=== PATIENT | female | born 1960 | race Caucasian/White ===

== ENCOUNTER → 2017-09-09 10:41 | Outpatient (CLI) | payer BC, SELFPAY ==
--- NOTE | 2017-09-09 10:45 | BI_ITS ---
MAMMOGRAPHY - BILATERAL SCREENING 3-D QUYNH SYNTHESIS REASON FOR EXAM: Female, 57 years old. Bilateral Screening 3-D tomosynthesis PERTINENT HISTORY: Left breast excisional biopsy 1991. No significant family history given. TECHNIQUE: 2-D mammograms and 3-D Quynh synthesis of the breast (s) were performed. CAD was performed. COMPARISON: 06/11/2014, 04/24/2012. FINDINGS: The breast composition is composed of scattered fibroglandular density. No new architectural distortion, asymmetric density, abnormal microcalcification cluster, dominant mass, adenopathy, skin thickening or nipple retraction identified. Postsurgical changes left breast again seen with the mild architectural distortion which appears stable. Coarse benign-appearing calcifications. BI/SCREENING MAMM (CAD), BILAT IMPRESSION: No mammographic sign of malignancy. Routine yearly recommended. ASSESSMENT CATEGORY: BIRADS Category 2: Benign. A letter regarding these results will be sent to the patient by the facility within 30 days. Negative results should not deter biopsy as a palpable lesion if present should be followed on clinical grounds and biopsy performed if clinically persistent for 3 months or increasing size. Approximately 10% of breast cancers are not detected by mammography. A normal mammogram should not delay biopsy of a clinically suspicious abnormality. Electronically Signed: David Burden, at 20:11 EDT Tel , Service support ,
== END ==
PROVIDERS: Family Provider Nurse Practitioner Family; PCP Nurse Practitioner Family; Visit Provider Nurse Practitioner Family
DX: Z12.31 Encounter for screening mammogram for malignant neoplasm of breast (principal)
CPT/HCPCS: 77063; 77067

== ENCOUNTER → 2019-01-31 10:21 | Outpatient (CLI) | payer OTHER, SELFPAY ==
[2019-01-31 11:08] LABS: Ferritin 6 ng/mL (8-252); Iron 64 ug/dL (50-170); Iron Binding Capacity,Total 385 ug/dL (250-450)
[2019-01-31 11:11] LABS: Hemoglobin A1c 5.9 % (4.2-6.3)
== END ==
LOC: LAB.FUTURE 10:25 → LAB 10:53
PROVIDERS: Family Provider Nurse Practitioner Family; PCP Nurse Practitioner Family; Referring Provider Nurse Practitioner Family; Visit Provider Nurse Practitioner Family
DX: R73.01 Impaired fasting glucose (principal); D64.9 Anemia, unspecified
CPT/HCPCS: 36415; 82728; 83036; 83540; 83550

== ENCOUNTER → 2019-09-14 15:28 | Outpatient (CLI) | payer OTHER, SELFPAY ==
--- NOTE | 2019-09-14 15:33 | BI_ITS ---
MAMMOGRAPHY - BILATERAL SCREENING REASON FOR EXAM: Female, 59 years old. Routine annual screening examination. PERTINENT HISTORY: Non-contributory. Remote left excisional breast biopsy. TECHNIQUE: Digital bilateral breast quynh (3D mammographic acquisition) in the CC and MLO projections. 2-D mediolateral oblique (MLO) and craniocaudad (CC) views of both breasts were obtained. CAD: Full Field Digital Mammography with Computer Added Detection was performed. COMPARISON: Comparison is made with prior examination dated 09/09/2017. FINDINGS: Breast Composition: There are scattered areas of fibroglandular density. There are no dominant masses or suspicious calcifications. Benign-appearing axillary lymph nodes. No other significant abnormalities are identified. There has been no significant change since the prior study. BI/SCREEN MAMM (CAD) W/QUYNH BILAT IMPRESSION: Stable bilateral screening mammogram. Yearly follow-up mammogram recommended. (A) ASSESSMENT CATEGORY: BIRADS Category 2: Benign. A letter regarding these results will be sent to the patient by the facility within 30 days. Approximately 10% of breast cancers are not detected by mammography. A normal mammogram should not delay biopsy of a clinically suspicious abnormality. [id number] Electronically Signed: Bruce Ansrai, at 8:03 EDT , Service support ,
== END ==
PROVIDERS: PCP Nurse Practitioner Family; Referring Provider Nurse Practitioner Family; Visit Provider Nurse Practitioner Family
DX: Z12.31 Encounter for screening mammogram for malignant neoplasm of breast (principal)
CPT/HCPCS: 77063; 77067

== ENCOUNTER 2019-10-18 17:25 | Emergency (ER) | payer OTHER, SELFPAY ==
[2019-10-18 17:26] VITALS: BP 147/81; PULSE 91; RESP 20; TEMP 37.1; O2SAT 100; BMI 32.2
--- NOTE | 2019-10-18 17:37 | CT_ITS ---
STUDY: CT BRAIN WITHOUT CONTRAST REASON FOR EXAM: Female, 59 years old. CASPER/VOMITING. Being treated for sinus infection RADIATION DOSAGE (If Supplied By Facility): CTDIvol = ( 44.99 ) mGy, DLP = ( 762.36 ) mGycm TECHNIQUE: Transaxial CT imaging of the brain was performed without administration of intravenous contrast material. Individualized dose optimization techniques were used for this CT. COMPARISON: 12/26/2016 FINDINGS: Normal soft tissue structures. Normal calvarium. Normal size ventricles and extra-axial spaces for the patient''s age. There are areas of decreased attenuation within the white matter tracts of the supratentorial brain, consistent with microvascular disease changes. Normal age-related changes of the basal ganglia. Normal brainstem. Normal cerebellum. There is no intracranial hemorrhage. There are no findings of an acute ischemic infarction. Normal visualized paranasal sinuses. CT/Brain/Head without Contrast IMPRESSION: No CT evidence of acute infarct or hemorrhage. If there is clinical concern for hyperacute ischemia that is not evident by CT, MRI should be considered if possible. Electronically Signed: Brandon Warren MD at 19:06 EDT Tel , Service support ,
--- NOTE | 2019-10-18 17:39 | ED.DCSUM_ITS ---
History of Present Illness Chief Complaint: Headache Informant: Patient, Family Onset: Today Current Severity: Moderate Maximum Severity: Severe Narrative: Patient presents secondary to severe headache. She states she was choking on a pill earlier. She was able to vomited it up but now has severe headache. She states it feels like there is sharp pain shooting from behind her eyes back to the top of her neck. She does have light sensitivity. She did take Tylenol prior to arrival. - Past Medical History (1) Anxiety Status: Chronic (2) CVA (cerebral vascular accident) Status: Chronic (3) Depression Status: Chronic (4) Fibromyalgia Status: Chronic (5) Hyperlipidemia Status: Chronic (6) Hypertension Status: Chronic Past Medical History - Allergies and Home Meds Allergies/Adverse Reactions: Allergies No Known Allergies Allergy (Verified 10/18/19 17:29) Primary Care Physician: Savi Joyner CRYPTOLOGIC TECHNICIAN TECHNICAL, CRYPTOLOGIC TECHNICIAN TECHNICAL-C [Primary Care Provider] - Prior records reviewed: Yes Surgical History: - - injection in back last week Lives: Spouse/ Significant Other Smoking Status: Never smoker - Family History Maternal Family History: Family History (Last Reviewed 09/12/17 @ 11:[address] Fish Ag MD) Unknown Past medical history not known due to adoption Family History: Reports: - Additional Family History: patient is adopted and does not know her biological family's history. Review of Systems General: Denies: Chills, Fever Eyes: Denies: Visual changes - bilaterally ENT: Denies: Bilateral ear pain Cardiovascular: Denies: Chest pain Respiratory: Denies: Dyspnea Gastrointestinal: Reports: Nausea, Vomiting. Denies: Abdominal pain Genitourinary: Denies: Dysuria Musculoskeletal: Reports: Neck pain Skin: Denies: Rash Neurological: Reports: Headache Hematologic: Denies: Easy bruising, Easy bleeding Allergy: Denies: Uticaria Physical Exam Vital Signs/Narrative: Vital Signs Temp Pulse Resp BP Pulse Ox 10/18/19 17:26 98.8 F 91 20 H 147/81 H 100 Inital Vital Signs reviewed: Yes General: Well nourished, Well developed Head: Normocephalic ENT: Moist mucous membranes Neck: Supple, - - Reproducible pain at the base of the skull. Cardiovascular: Regular rate, Regular rhythm Respiratory: No distress, CTA bilaterally Abdomen: Soft, Nontender Extremities: Nontender Skin: Normal color Neurological: Alert, Oriented x3 Psychological: Tearful, - - Anxious Diagnostic/Tx/Re-eval Impressions Brain CT 10/18/19 17:37 IMPRESSION: No CT evidence of acute infarct or hemorrhage. If there is clinical concern for hyperacute ischemia that is not evident by CT, MRI should be considered if possible. Electronically Signed: Brandon Warren MD at 19:06 EDT Tel , Service support , 10/18/19 17:37 Brain/Head without Contrast [CT] Stat - Medical Decision Making CT scan was unremarkable. Patient was given Toradol, Reglan, Benadryl, and IV fluids. On repeat evaluation she does feel significantly improved. She be discharged home with her at this time. Return instructions were given. ED Disposition - Plan for ED Patient: Disposition: Home or Assisted Living Diagnosis: Headache Instructions: ED Headache Unspecified Referrals: Savi Joyner CRYPTOLOGIC TECHNICIAN TECHNICAL, CRYPTOLOGIC TECHNICIAN TECHNICAL-C [Primary Care Provider] - 3-5 Days if not improving
[2019-10-18] MEDS: Metoclopramide 10 MG/2 ML Vial 5 MG IV (17:55)
[2019-10-18] MEDS: DiphenhydrAMINE 50 MG/ML Syringe 25 MG IV (17:55)
[2019-10-18] MEDS: Ketorolac 30 MG/ML Syringe IV (18:31)
[2019-10-18 19:47] VITALS: BP 145/80; PULSE 78; RESP 18; O2SAT 99
== END 2019-10-18 19:48 | disposition home or self-care (01) ==
PROVIDERS: Emergency Provider Emergency Medicine; PCP Nurse Practitioner Family
DX: R51 Headache (principal); R11.2 Nausea with vomiting, unspecified; M54.2 Cervicalgia; F41.9 Anxiety disorder, unspecified; F32.9 Major depressive disorder, single episode, unspecified; E78.5 Hyperlipidemia, unspecified; I10 Essential (primary) hypertension; M79.7 Fibromyalgia; Z86.73 Personal history of transient ischemic attack (TIA), and cerebral infarction without residual deficits; Z79.82 Long term (current) use of aspirin; Z79.899 Other long term (current) drug therapy
CPT/HCPCS: 70450; 96374; 96375; 99283; J7050; A4216

== ENCOUNTER → 2019-12-01 15:00 | Outpatient (CLI) | payer OTHER, SELFPAY ==
[2019-12-01 18:09] LABS: CRP < 2.90 mg/L (0.0-3.0)
[2019-12-03 16:08] LABS: Endomysial Antibody IgA Negative (Negative)
[2019-12-03 16:24] LABS: Immunoglobulin A 25 mg/dL (87-352); t-Transglutaminase IgA <2 U/mL (0-3)
== END ==
PROVIDERS: PCP Nurse Practitioner Family; Referring Provider Internal Medicine Gastroenterology; Visit Provider Internal Medicine Gastroenterology
DX: R10.9 Unspecified abdominal pain (principal)
CPT/HCPCS: 36415; 82784; 83516; 86140; 86255

== ENCOUNTER → 2019-12-11 17:19 | Outpatient (CLI) | payer OTHER, SELFPAY ==
[2019-12-14 16:08] LABS: Endomysial Antibody IgA Negative (Negative)
[2019-12-14 17:42] LABS: Immunoglobulin A 24 mg/dL (87-352); t-Transglutaminase IgA <2 U/mL (0-3)
== END ==
PROVIDERS: PCP Nurse Practitioner Family; Referring Provider Internal Medicine Gastroenterology; Visit Provider Internal Medicine Gastroenterology
DX: K90.0 Celiac disease (principal)
CPT/HCPCS: 36415; 82784; 83516; 86255

== ENCOUNTER 2019-12-28 19:15 | Emergency (ER) | payer OTHER, SELFPAY ==
[2019-12-28 19:16] VITALS: BP 141/83; PULSE 73; RESP 16; TEMP 36.3; O2SAT 99; BMI 29.9
--- NOTE | 2019-12-28 19:52 | ED.VISSUMM ---
- ER Visit Summary Date of Service: 12/28/19 Chief Complaint: Back pain History of Present Illness: The patient is a 59 F who sees Zara Joyner. She reports that she has a history of sciatica. She reports that she was doing well until earlier today when she had the abrupt onset of right-sided low back pain. She states that the sharp pain is 10 of 10 severity. There is no radiation to her legs. No numbness or weakness. States pain is 10 out of 10 in severity currently and at worst. Is worsened by movement and turning. She is taken naproxen and Tylenol without relief. She denies any problems with her bowels or her bladder. No groin numbness. Patient denies red flags. Physical Examination: Vitals: Stable. Afebrile. General: A&O x 3. NAD. Cardiovascular exam: Regular rate and rhythm, no murmur, rub or gallop. Respiratory exam: Clear to auscultation bilaterally. No wheezes or stridor. Abdominal exam: Soft, nontender, nondistended, normal bowel sounds. No peritoneal signs. Back: Diffuse moderate tenderness to palpation over the lumbar spine and the paraspinous musculature in the lumbar region. No point tenderness. Negative straight leg bilaterally. 5/5 DF, PF, EHL bilaterally. Normal sensation to light touch throughout. Extremity: No clubbing, cyanosis, or edema. Emergency Department Course and Treatment: An OAR[facility] report was obtained which was negative. The patient was given a dose of Kimberly p.o. Treatment Plan: Patient be discharged with 10 Kimberly. Instructed to follow-up with primary care physician in 3 to 5 days if not improving. The signs and symptoms of cauda equina syndrome were discussed and she is instructed to return for these. Disposition: To home in improved and stable condition. Impression: 1. Low back pain. This note was generated with [employer] dictation software. It may contain incorrect words, spelling, and punctuation that were not noted in review of the chart prior to signing ED Disposition - Plan for ED Patient: Disposition: Home or Assisted Living Instructions: ED Back Pain Acute or Chronic Prescriptions: Hydrocodone Bitart/Apap 5-325 [Kimberly 5MG-325MG] 1 tab PO Q4H PRN PRN 2 Days #10 tab PRN Reason: Pain Prescription Printed Referrals: Savi Joyner GREEN CHAIN OPERATOR, GREEN CHAIN OPERATOR-C [Primary Care Provider] - 3-5 Days if not improving
[2019-12-28] MEDS: HYDROcodone Bitartrate/Apap 5/325 Tablet PO (20:11)
== END 2019-12-28 20:49 | disposition home or self-care (01) ==
LOC: ED 19:45
PROVIDERS: Emergency Provider Emergency Medicine; PCP Nurse Practitioner Family
DX: M54.41 Lumbago with sciatica, right side (principal); R51.9 Headache, unspecified; I10 Essential (primary) hypertension; E78.00 Pure hypercholesterolemia, unspecified; Z86.73 Personal history of transient ischemic attack (TIA), and cerebral infarction without residual deficits; Z79.82 Long term (current) use of aspirin; Z79.899 Other long term (current) drug therapy
CPT/HCPCS: 99282

== ENCOUNTER 2020-01-20 17:08 | Emergency (ER) | payer OTHER, SELFPAY ==
[2020-01-06 17:43] VITALS: BMI 29.3
[2020-01-20 17:09] VITALS: BP 137/89; PULSE 89; RESP 18; TEMP 36.6; O2SAT 97; BMI 30.6
[2020-01-20 17:56] VITALS: BP 137/89; PULSE 89; RESP 18; TEMP 36.6; O2SAT 97
--- NOTE | 2020-01-20 18:57 | ED.DCSUM_ITS ---
- ER Visit Summary Date of Service: 01/20/20 Chief Complaint: Anxiety, confusion, depression History of Present Illness: The patient is a 59 F who presents with anxiety, confusion, and depression that has been getting worse over the past few months. Patient states she has been forgetting the names of things such as a tray for a highchair. Patient states she called that a counter because she could not think of the word tray. Patient states she has been having some difficulty hearing and difficulty talking. Patient states her forgetfulness and confusion is worse with anxiety. Patient also admits to some mood swings and some flight of ideas. Patient also complains of right shoulder spasms and a flareup of her fibromyalgia. Physical Examination: Vital signs are stable. Patient is afebrile. Patient is in no acute distress. Oral mucosa is pink and moist. Neck is supple. Trachea is midline. There is no JVD noted. Heart was regular rate and rhythm. Lungs are clear and equal bilaterally. Abdomen is soft. Bowel sounds are normal. There is no tenderness. There is no rebound or guarding noted. Skin is warm dry. Cranial nerves II through XII are intact. There are no focal motor or sensory deficits noted. Extremities are intact. There is no calf tenderness or edema. Patient denies any suicidal or homicidal ideations. However, patient states she has been having some increase in her depression and is thinking of who she should give her things away to when she dies. Test Results: CBC and comprehensive metabolic profile were obtained were within normal limits. Urine tox screen was negative. Serum alcohol level was negative. A COVID-19 antigen was ordered and is pending. Emergency Department Course and Treatment: Case was discussed with crisis. They evaluated the patient and stated that the patient was having suicidal ideations with multiple plans. They also reported that the patient was practicing some of her plans for suicide. They recommended placing the patient in a psychiatric hospital. They will attempt to find placement for the patient. The pink slip was placed on the chart. Patient and family understand and are agreeable with the plan. All questions were answered. Disposition: Transfer to psychiatric facility Impression: Depression with suicidal ideation This note was generated with [employer] dictation software. It may contain incorrect words, spelling, and punctuation that were not noted in review of the chart prior to signing ED Disposition - Plan for ED Patient: Disposition: Psychiatric Hospital or Unit Diagnosis: Depression with suicidal ideation Referrals: Margarita Garcia MD [Primary Care Provider] -
[2020-01-20 19:04] LABS: Absolute Lymphocyte Count 2.05 X10^3/uL (0.83-4.51); Absolute Neutrophil Count 3.8 X10^3/uL (2.0-7.7); Basophil# 0.04 X10^3/uL; Basophil% 0.6 % (0-1); Eosinophil# 0.27 X10^3/uL; Eosinophils% 4.1 % (0-5); Hematocrit 37.5 % (37-47); Hemoglobin 12.3 g/dL (12.0-15.0); Lymphocyte # 2.05 X10^3/ul (4.0); Mean Corp Hgb Conc 32.8 g/dL (32-36); Mean Corpuscular Hgb 30.8 pg (27.0-32.0); Mean Platelet Vol. 9.5 fl (6.2-12.0); Monocyte# 0.49 X10^3/uL; Monocyte% 7.4 % (0-10); NRBC Flagged by Analyzer 0 % (0-5); Neutrophil # 3.75 X10^3/uL (2.7-7.7); Neutrophil % 56.6 % (47-70); Platelet Count 366 K/mm3 (150-450); RBC Distribution Width CV 13.1 % (11.6-14.6); RBC Distribution Width SD 44.8 fl (35.1-43.9); Red Blood Count 3.99 M/mm3 (4.2-5.4); White Blood Count 6.6 K/mm3 (4.4-11.0)
[2020-01-20 19:15] LABS: ALB/GLOB Ratio 1.3 RATIO (0.9-2.4); AST(SGOT) 11 U/L (15-37); Alanine Aminotransfer ALT/SGPT 28 U/L (13-56); Albumin, Serum 4.1 g/dL (3.2-5.0); Alkaline Phosphatase 97 U/L (45-117); Anion Gap 5 (5-15); BUN 18 mg/dL (7-18); BUN/Creat Ratio 20.9 RATIO (10-20); Calcium,Total 8.4 mg/dL (8.5-10.1); Chloride 109 mmol/L (98-107); Creatinine, Serum 0.86 mg/dL (0.55-1.02); EST Glomerular Filtration Rate 72 mL/min (>60); Est Glom Filt Rate - Afr Amer 87 mL/min (>60); Estimated Creatinine Clearance 57.08 ml/min; Globulin 3.1 g/dL (2.2-4.2); Glucose 72 mg/dL (74-106); Potassium 3.6 mmol/L (3.5-5.1); Protein, Total 7.2 g/dL (6.4-8.2); Sodium Level 142 mmol/L (136-145)
[2020-01-20 19:48] VITALS: RESP 17
[2020-01-20 19:51] LABS: Alcohol, Blood (Medical)-Serum < 3.0 mg/dL
[2020-01-20 20:04] LABS: Amphetamine Urine VISTA NEGATIVE (<1000 ng/mL); Barbiturate Urine VISTA NEGATIVE (< 200 ng/mL); Benzodiazepine Urine VISTA NEGATIVE (< 200 ng/mL); Cocaine Urine VISTA NEGATIVE (< 300 ng/mL); Ecstacy Urine VISTA NEGATIVE (< 500 ng/mL); Methadone Urine VISTA NEGATIVE (< 300 ng/mL); PCP Urine VISTA NEGATIVE (< 25 ng/mL); THC Urine VISTA NEGATIVE (< 50 ng/mL); Vista UDS pH Range 5
--- NOTE | 2020-01-20 21:02 | ED.RN ---
CALLED CRISIS TO REFER THIS PT, FAXED THE CHART, HENRRY IS CRUSHER AND BINDER OPERATOR
[2020-01-20 21:21] VITALS: RESP 16
[2020-01-20 22:05] VITALS: RESP 14
[2020-01-20] MEDS: Calcium Carbonate 500 MG Tablet PO (22:13)
[2020-01-20 23:00] VITALS: RESP 16
[2020-01-21] VITALS: BP 126/66; PULSE 80; RESP 16; O2SAT 99
[2020-01-21 01:30] VITALS: RESP 16
[2020-01-21 02:16] VITALS: RESP 18
== END 2020-01-21 03:45 ==
PROVIDERS: Emergency Provider Emergency Medicine; PCP Internal Medicine
DX: F32.9 Major depressive disorder, single episode, unspecified (principal); R45.851 Suicidal ideations; F41.9 Anxiety disorder, unspecified; M79.7 Fibromyalgia; K58.9 Irritable bowel syndrome, unspecified; Z79.899 Other long term (current) drug therapy
CPT/HCPCS: 80053; 80307; 80320; 85025; 87426; 99282; G0480

== ENCOUNTER → 2020-03-07 15:31 | Outpatient (CLI) | payer OTHER, SELFPAY ==
[2020-03-07 15:03] VITALS: BMI 30.3
[2020-03-07 17:06] LABS: Cholesterol 156 mg/dL (200); High Density Lipoprotein 68 mg/dL; Triglycerides 69 mg/dL; Very Low Density Lipoprotein 14 mg/dL (5-40)
== END ==
PROVIDERS: PCP Internal Medicine; Referring Provider Internal Medicine; Visit Provider Internal Medicine
DX: I10 Essential (primary) hypertension (principal)
CPT/HCPCS: 36415; 80061

== ENCOUNTER → 2020-04-01 11:39 | Outpatient (CLI) | payer OTHER, SELFPAY ==
[2020-04-01 11:07] VITALS: BMI 31.3
[2020-04-01 15:17] LABS: ALB/GLOB Ratio 1.3 RATIO (0.9-2.4); AST(SGOT) 12 U/L (15-37); Alanine Aminotransfer ALT/SGPT 25 U/L (13-56); Albumin, Serum 3.6 g/dL (3.2-5.0); Alkaline Phosphatase 103 U/L (45-117); Anion Gap 5 (5-15); BUN 12 mg/dL (7-18); Calcium,Total 8.7 mg/dL (8.5-10.1); Chloride 107 mmol/L (98-107); EST Glomerular Filtration Rate 78 mL/min (>60); Est Glom Filt Rate - Afr Amer 95 mL/min (>60); Globulin 2.7 g/dL (2.2-4.2); Glucose 116 mg/dL (74-106); Protein, Total 6.3 g/dL (6.4-8.2); Sodium Level 139 mmol/L (136-145)
[2020-04-01 16:22] LABS: Hemoglobin A1c 5.5 % (3.8-5.6)
== END ==
PROVIDERS: PCP Internal Medicine; Referring Provider Internal Medicine; Visit Provider Internal Medicine
DX: R73.03 Prediabetes (principal); I10 Essential (primary) hypertension
CPT/HCPCS: 36415; 80053; 83036

== ENCOUNTER → 2020-05-18 13:10 | Outpatient (CLI) | payer OTHER, SELFPAY ==
[2020-05-04 14:35] VITALS: BMI 32.0
--- NOTE | 2020-05-18 13:14 | MRI_ITS ---
STUDY: MRI BRAIN WITH AND WITHOUT CONTRAST REASON FOR EXAM: Female, 59 years old. MEMORY IMPAIRMENT TECHNIQUE: Standardized multiplanar fat and water weighted pulse sequences were obtained. dotarem 15ml iv was administered for the contrast portion of the examination. COMPARISON: 12/27/2016 CT of the brain 10/18/2019 FINDINGS: Normal size of the ventricles and extra-axial spaces for the patient''s age. There does appear to be very subtle reduction in size of the right hippocampus relative to the left of uncertain etiology or clinical significance Normal white matter tracts of the supratentorial brain. Normal bilateral basal ganglia. Normal thalami. There is no extra-axial fluid accumulation. Normal flow voids within the major intracranial circulation suggesting patency by spin echo criteria. Normal venous enhancement. There is no enhancing intra-axial or extra-axial abnormality. Normal sella turcica, pituitary gland, infundibular stalk, optic chiasm and hypothalamus. Normal tectal plate and pineal gland. Normal midbrain, yue and medulla. Normal cerebellum. Normal basal cisterns. Normal bilateral temporal bones. Normal bilateral internal auditory canals. No demonstrated orbital abnormality, within the constraints of a routine brain study. Normal visualized paranasal sinuses. Normal calvarium and skull base. Normal visualized soft tissue structures. Normal visualized upper cervical spine. No significant change since prior exam MRI/Brain W/WO Contrast IMPRESSION: Subtle hippocampal asymmetry slightly smaller on the right of uncertain clinical significance. Otherwise normal unenhanced and enhanced MRI of the brain Electronically Signed: Gordon Bowers MD at 17:02 EDT , Service support ,
== END ==
PROVIDERS: PCP Internal Medicine; Referring Provider Psychiatry & Neurology Neurology; Visit Provider Psychiatry & Neurology Neurology
DX: R41.3 Other amnesia (principal)
CPT/HCPCS: 70553; A9575

== ENCOUNTER → 2020-09-23 09:17 | Outpatient (CLI) | payer OTHER, SELFPAY ==
[2020-07-06 17:39] VITALS: BMI 32.7
--- NOTE | 2020-09-23 09:26 | BI_ITS ---
MAMMOGRAPHY - BILATERAL SCREENING REASON FOR EXAM: Female, 60 years old. Routine annual screening examination. PERTINENT HISTORY: Non-contributory. TECHNIQUE: Digital bilateral breast quynh (3D mammographic acquisition) in the CC and MLO projections. 2-D mediolateral oblique (MLO) and craniocaudad (CC) views of both breasts were obtained. CAD: Full Field Digital Mammography with Computer Added Detection was performed. COMPARISON: Comparison is made with prior study 09/14/2019 and 09/10/2015. FINDINGS: Breast Composition: There are scattered areas of fibroglandular density. There are no dominant masses or suspicious calcifications. Stable benign-appearing bilateral axillary lymph nodes. No other significant abnormalities are identified. There has been no significant change since the prior study. BI/SCRN MAMM (CAD)W/QUYNH BILAT IMPRESSION: Stable bilateral screening mammogram. Yearly follow-up mammogram recommended. (A) ASSESSMENT CATEGORY: BIRADS Category 2: Benign. A letter regarding these results will be sent to the patient by the facility within 30 days. Approximately 10% of breast cancers are not detected by mammography. A normal mammogram should not delay biopsy of a clinically suspicious abnormality. [id number] Electronically Signed: Bruce Ansari MD at 10:37 EDT , Service support ,
== END ==
PROVIDERS: PCP Internal Medicine; Referring Provider Nurse Practitioner Family; Visit Provider Nurse Practitioner Family
DX: Z12.31 Encounter for screening mammogram for malignant neoplasm of breast (principal)
CPT/HCPCS: 77063; 77067

== ENCOUNTER → 2020-10-06 15:13 | Outpatient (CLI) | payer OTHER, SELFPAY ==
[2020-10-06 17:04] LABS: Absolute Lymphocyte Count 1.15 X10^3/uL (0.83-4.51); Absolute Neutrophil Count 3.5 X10^3/uL (2.0-7.7); Eosinophil# 0.17 X10^3/uL; Eosinophils% 3.2 % (0-5); Hematocrit 33.7 % (37-47); Hemoglobin 11.4 g/dL (12.0-15.0); Lymphocyte # 1.15 X10^3/ul (0.83-4.51); Lymphocyte % 21.9 % (19-41); Mean Corp Hgb Conc 33.8 g/dL (32-36); Mean Corpuscular Hgb 31.1 pg (27.0-32.0); Mean Corpuscular Volume 92.1 fL (81-99); Mean Platelet Vol. 9.3 fl (6.2-12.0); Monocyte# 0.41 X10^3/uL; Monocyte% 7.8 % (0-10); NRBC Flagged by Analyzer 0 % (0-5); Neutrophil # 3.52 X10^3/uL (2.7-7.7); Neutrophil % 66.9 % (47-70); Platelet Count 283 K/mm3 (150-450); RBC Distribution Width CV 11.9 % (11.6-14.6); RBC Distribution Width SD 40.1 fl (35.1-43.9); Red Blood Count 3.66 M/mm3 (4.2-5.4); White Blood Count 5.3 K/mm3 (4.4-11.0)
[2020-10-06 17:12] LABS: ALB/GLOB Ratio 1.5 RATIO (0.9-2.4); AST(SGOT) 16 U/L (15-37); Alanine Aminotransfer ALT/SGPT 33 U/L (13-56); Albumin, Serum 4.1 g/dL (3.2-5.0); Alkaline Phosphatase 120 U/L (45-117); Anion Gap 6 (5-15); BUN 15 mg/dL (7-18); BUN/Creat Ratio 23.8 RATIO (10-20); Chloride 94 mmol/L (98-107); Creatinine, Serum 0.63 mg/dL (0.55-1.02); EST Glomerular Filtration Rate 103 mL/min (>60); Est Glom Filt Rate - Afr Amer 125 mL/min (>60); Globulin 2.7 g/dL (2.2-4.2); Glucose 120 mg/dL (74-106); Potassium 3.6 mmol/L (3.5-5.1); Protein, Total 6.8 g/dL (6.4-8.2); Sodium Level 129 mmol/L (136-145)
== END ==
PROVIDERS: PCP Internal Medicine; Referring Provider Internal Medicine; Visit Provider Internal Medicine
DX: I10 Essential (primary) hypertension (principal)
CPT/HCPCS: 36415; 80053; 85025

== ENCOUNTER → 2020-10-27 12:44 | Outpatient (CLI) | payer OTHER, SELFPAY ==
--- NOTE | 2020-10-27 13:10 | RAD_ITS ---
STUDY: X-RAY - ESOPHAGUS (BARIUM SWALLOW) WITH FLUOROSCOPY REASON FOR EXAM: Female, 60 years old. Difficult swallowing solids. Food getting stuck TECHNIQUE: 17 view(s) of the esophagus were obtained following swallowing of barium. FLUOROSCOPY TIME (if supplied): (35 seconds) minutes/seconds COMPARISON: None. FINDINGS: There is no demonstrated esophageal foreign body. There is no demonstrated stricture or mucosal abnormality. There is a small hiatal hernia of the fundus of the stomach. The patient ingested a 12 mm tablet of barium without any difficulty. Normal visualized aortic arch and descending thoracic aorta. Normal visualized pulmonary parenchyma. Normal visualized osseous structures of the thorax. RAD/Esophagus Dual Contrast IMPRESSION: Small sliding hernia without esophageal reflux. The patient ingested a 12 mm tablet of barium without any difficulty. Electronically Signed: Bruce Ansari MD at 13:33 EDT , Service support ,
== END ==
PROVIDERS: PCP Internal Medicine; Referring Provider Internal Medicine; Visit Provider Internal Medicine
DX: R13.10 Dysphagia, unspecified (principal)
CPT/HCPCS: 74221

== ENCOUNTER 2020-11-03 11:32 | Emergency (ER) | payer OTHER, SELFPAY ==
[2020-11-03 11:33] VITALS: BP 151/77; PULSE 67; RESP 14; TEMP 36.1; O2SAT 100; BMI 33.5
--- NOTE | 2020-11-03 11:49 | RAD_ITS ---
STUDY: X-RAY CHEST REASON FOR EXAM: Female, 60 years old. Cough TECHNIQUE: Single AP portable view of the chest. COMPARISON: Comparison is made with prior study of 12/26/2016. FINDINGS: The lungs are clear and expanded. There is no demonstrated pleural abnormality. Normal size heart. Normal mediastinum and pili. Normal visualized pulmonary arteries. Normal visualized aortic arch and descending thoracic aorta. Normal visualized thoracic spine. Normal visualized ribs, clavicles, and shoulders. Hiatal hernia. RAD/Chest 1 View (Portable) IMPRESSION: Normal x-ray examination of the chest. Electronically Signed: Bruce Ansari MD at 12:56 EDT , Service support ,
--- NOTE | 2020-11-03 11:53 | EX.ED.VIS.UR ---
HPI HPI - URI History of Present Illness Chief Complaint: Cough Informant: patient Onset/Context/Timing Onset: Days Context: Gradual Onset Timing: Continuous and Intermittent Current Severity: Mild Maximum Severity: Mild Associated Symptoms Associated Symptoms: Positive for Productive Cough; Negative for Nausea, Vomiting and Diarrhea Narrative Narrative: 17-year-old female history of asthma, anxiety and prior TIA. No cardiac history. No history of DVT or PE or risk factors. States last 4 to 5 days she has had a productive cough of yellowish sputum. Denies any hemoptysis. Denies any fever. Denies any vomiting or diarrhea. She was vaccinated for Covid Prior similar symptoms: Yes Recent Illness/Hospitalization: No ROS ROS ED ROS Narrative Cough. Review of Systems ROS Unobtainable: Denies due to encephalopathy Constitutional Constitutional ED: Denies chills or fever(s) Eyes Eyes: Denies change in vision ENT ENT ED: Denies ear pain or sore throat Cardiovascular Cardiovascular: Reports chest pain Respiratory/Chest Respiratory/Chest: Reports cough and sputum; Denies dyspnea Gastrointestinal Gastrointestinal: Denies abdominal pain, diarrhea, nausea or vomiting Genitourinary Genitourinary ED: Denies dysuria or hematuria Musculoskeletal Musculoskeletal: Denies arthralgias or myalgias Integumentary Denies abscess or rash Neurologic Neurologic: Denies headache(s) Psychiatric Psychiatric: Denies depression Endocrine Endocrinology: Denies polyuria Hematologic/Lymphatic Hematologic/Lymphatic: Denies easy bruising Allergic/Immunologic Allergic/Immunologic ED: Denies urticaria PFSH PFSH Medical History Anemia Arthritis Asthma Back pain Bee sting reaction Bipolar depression BIPOLOR COPD (chronic obstructive pulmonary disease) CVA (cerebral vascular accident) Difficulty swallowing solids Dizziness Emphysema lung Fibromyalgia Flu vaccine need GERD (gastroesophageal reflux disease) GI problem Hernia History of stroke Hx of migraine headaches Hyperlipidemia Hypertension Hyponatremia IBS (irritable bowel syndrome) Lumbar radiculopathy Memory impairment OAB (overactive bladder) Orthostatic hypotension CHIQUI (obstructive sleep apnea) Pericardial effusion (noninflammatory) right scapular mass Sciatica Seasonal allergies Vaginal atrophy Home Medications albuterol sulfate 2 puff INHALATION Q4H PRN PRN 12/26/16 [History Last Taken Unknown] cholecalciferol (vitamin D3) 5,000 unit PO DAILY 12/26/16 [History Last Taken Unknown] cyanocobalamin (vitamin B-12) 500 mcg PO DAILY 12/26/16 [History Last Taken Unknown] omeprazole 40 mg PO DAILY 12/26/16 [History Last Taken Unknown] prazosin 1 mg PO DAILY 12/26/16 [History Last Taken Unknown] aspirin 81 mg PO DAILY@0800 tab.chew 12/27/16 [Rx Last Taken Unknown] apple cider vinegar 500 mg tablet 450 mg PO BREAKFAST tab 01/06/20 [History Last Taken Unknown] diclofenac sodium 1 % topical gel 2 g TOPICAL ONCE 01/06/20 [History Last Taken Unknown] lisinopril 10 mg tablet 10 mg PO DAILY #90 tab 01/06/20 [Rx Last Taken Unknown] turmeric root extract 500 mg capsule 1,000 mg PO BID cap 01/06/20 [History Last Taken Unknown] trazodone 50 mg tablet 50 mg PO DAILY 01/29/20 [History Last Taken Unknown] cyclobenzaprine 10 mg tablet 5 - 10 mg PO BID PRN #20 tab 02/11/20 [Rx Last Taken Unknown] budesonide-formoterol HFA 160 mcg-4.5 mcg/actuation aerosol inhaler 2 puff INHALATION BID 03/07/20 [History Last Taken Unknown] clonidine HCl 0.1 mg tablet 0.1 mg PO Q6H PRN tab 03/07/20 [History Last Taken Unknown] coenzyme Q10 30 mg capsule 60 mg PO DAILY cap 03/07/20 [History Last Taken Unknown] eluxadoline 100 mg tablet 50 mg PO DAILY tab 03/07/20 [History Last Taken Unknown] hydroxyzine HCl 25 mg tablet 50 mg PO TID PRN tab 03/07/20 [History Last Taken Unknown] lamotrigine 150 mg tablet 200 mg PO BID tab 03/07/20 [History Last Taken Unknown] menthol 2.5 % topical gel 1 applic TOPICAL BID-QID PRN 03/07/20 [History Last Taken Unknown] izzzkoug-qnfs-dhghj acid 240 mcg-vit K 120 wfd-jgrcei-zfpj 293 tablet 1 tab PO DAILY tab 03/07/20 [History Last Taken Unknown] ferrous sulfate 325 mg (65 mg iron) tablet,delayed release 325 mg PO DAILY tab 04/01/20 [History Last Taken Unknown] melatonin 3 mg capsule 6 mg PO HS cap 04/01/20 [History Last Taken Unknown] olanzapine 5 mg tablet 10 mg PO DAILY tab 04/01/20 [History Last Taken Unknown] ondansetron HCl 4 mg tablet 4 mg PO Q8H PRN 04/01/20 [History Last Taken Unknown] pyridoxine (vitamin B6) 100 mg tablet 100 mg PO DAILY 04/01/20 [History Last Taken Unknown] simvastatin 20 mg tablet 20 mg PO QHS #90 tab 04/05/20 [Rx Last Taken Unknown] aripiprazole 2 mg tablet 2 mg PO DAILY 05/04/20 [History Last Taken Unknown] gabapentin 600 mg tablet 800 mg PO TID tablet 05/04/20 [History Last Taken Unknown] carbamazepine 100 mg capsule,extended release [id number] 100 mg PO BID 10/06/20 [History Last Taken Unknown] estradiol 1 applic VAGINAL QHS 10/06/20 [History Last Taken Unknown] oxybutynin chloride 15 mg tablet,extended release 24 hr 15 mg PO DAILY 10/06/20 [History Last Taken Unknown] montelukast 10 mg tablet 10 mg PO DAILY #90 tab 10/24/20 [Rx Last Taken Unknown] Allergy/AdvReac Type Severity Reaction Status Date / Time bee venom protein (honey bee) Allergy Mild SWELLING/ Verified 11/03/20 11:33 SOB Family History Unknown Past medical history not known due to adoption Surgical History History of total hysterectomy Hx of breast biopsy Social History Smoking Status: Never smoker alcohol intake: current alcohol intake frequency: 3 or more drinks per day Alcohol type: beer and hard liquor substance use type: does not use caffeine: Yes what type of physical activity do you participate in: walking frequency: 1-2 times per week seatbelt use: always do you feel safe at home: Yes additional social history: -Aashish EXAM Physical Exam Narrative Exam Narrative: The day or female no acute distress. Vital signs stable. Afebrile. Pulse ox 100% on room air. She does not look septic toxic in any distress. Exam benign. Const Vital Signs: 11/03/20 11:33 11/03/20 11:55 Temperature 97 F L Temperature Source Temporal Pulse Rate 67 Respiratory Rate 14 Respiratory Effort Short of Breath Respiratory Depth Normal Respiratory Pattern Normal Blood Pressure 151/77 H Blood Pressure Mean 101 Pulse Ox 100 Oxygen Delivery Method Room Air Room Air Positive well nourished, well developed and obese; Negative for cachectic or contractures General Appearance ED: well developed and NAD; Negative for cachectic, contractures, cyanotic or diaphoretic Nutritional Appearance: obese; Negative for cachectic HEENT Reports moist mucous membranes normocephalic and atraumatic; Negative for scalp tenderness Face and Sinus: Negative for sinus tenderness Eyes PERRL and EOMs intact bilaterally Neck no lymphadenopathy, supple, no meningeal signs and no JVD General: Negative for anterior neck swelling or lymphadenopathy Resp normal respiratory effort and clear to auscultation bilaterally Auscultation: Negative for rales, rhonchi or wheezes Cardio S1 normal heart sound, S2 normal heart sound and no murmurs Rate: regular rate Rhythm: regular rhythm GI non-tender, non-distended and no masses Auscultation: normoactive bowel sounds Palpation: soft; Negative for tender or guarding Back/Spine no CVA tenderness and normal ROM General Back: Negative for CVA tenderness Cervical Spine: Negative for cervical spine tenderness Extremity normal to inspection General Extremety ED: Negative for cyanosis or tenderness General Extremity: Negative for cyanosis Neuro oriented x3 Sensorium / Orientation: alert, oriented to person, oriented to place and oriented to time; Negative for orientation impaired, lethargic or stuporous Motor Exam: strength 5/5 throughout Psych mental status grossly normal Skin Lesions: no lesions Rashes: no rashes MDM MDM MDM Narrative Medical decision making narrative: 60-year-old female with viral URI symptoms. Chest x-ray will be obtained along with Covid and EKG. Repeat exam patient is doing well at 1:50 PM and will be discharged home. Treated as a viral syndrome. Lab Data Attestation: I reviewed the patient's lab results. Radiography Diagnostic Testing: Radiology Impression Chest X-Ray 11/03/20 11:49 IMPRESSION: Normal x-ray examination of the chest. Electronically Signed: Bruce Ansari MD at 12:56 EDT , Service support , Rapid Covid test negative. Portable chest x-ray interpreted by myself and radiologist shows no acute abnormality. Normal cardiac silhouette. No infiltrate. No Covid. Discharge Plan Triage Chief Complaint: Cough ED Provider: Marcelino Valdovinos Dx/Rx/DC Orders Clinical Impression: Viral syndrome Instructions: ED URI, Viral, No Abx (Adult) Prescriptions: No Action diclofenac sodium 1 % gel 2 g TOPICAL ONCE RF: 0 apple cider vinegar 500 mg tablet 500 mg tablet 450 mg PO BREAKFAST RF: 0 lisinopril 10 mg tablet 10 mg PO DAILY Qty: 90 RF: 3 hydroxyzine HCl 25 mg tablet 50 mg PO TID PRN (Reason: Anxiety) RF: 0 lamotrigine 150 mg tablet 200 mg PO BID RF: 0 ferrous sulfate 325 mg (65 mg iron) tablet,delayed release (DR/EC) 325 mg PO DAILY RF: 0 melatonin 3 mg capsule 6 mg PO HS RF: 0 trazodone 50 mg tablet 50 mg PO DAILY RF: 0 clonidine HCl 0.1 mg tablet 0.1 mg PO Q6H PRN (Reason: hypertensive emergency) RF: 0 Icy Hot Pain Relieving 2.5 % gel 1 applic TOPICAL BID-QID PRN (Reason: Pain) RF: 0 Alive Women's 50 Plus (blend) 240-120-300 mcg tablet 1 tab PO DAILY RF: 0 Viberzi 100 mg tablet 50 mg PO DAILY RF: 0 olanzapine 5 mg tablet 10 mg PO DAILY RF: 0 ondansetron HCl [Zofran] 4 mg tablet 4 mg PO Q8H PRN (Reason: Nausea) RF: 0 gabapentin 600 mg tablet 800 mg PO TID RF: 0 aripiprazole [Abilify] 2 mg tablet 2 mg PO DAILY RF: 0 pyridoxine (vitamin B6) 100 mg tablet 100 mg PO DAILY RF: 0 simvastatin 20 mg tablet 20 mg PO QHS Qty: 90 RF: 2 oxybutynin chloride 15 mg tablet extended release 24hr 15 mg PO DAILY RF: 0 carbamazepine 100 mg capsule, ER multiphase 12 hr 100 mg PO BID RF: 0 estradiol 1 applic vaginal QHS RF: 0 prazosin 1 MG capsule 1 mg PO DAILY RF: 0 cyanocobalamin (vitamin B-12) 500 MCG tablet 500 mcg PO DAILY RF: 0 omeprazole 20 MG capsule 40 mg PO DAILY RF: 0 albuterol sulfate 1 INHALER inhaler 2 puff INHALATION Q4H PRN PRN (Reason: Sob &/Or Wheezing) RF: 0 cholecalciferol (vitamin D3) 5,000 UNIT tablet,disintegrating 5,000 unit PO DAILY RF: 0 aspirin 81 MG tablet,chewable 81 mg PO DAILY@0800 RF: 0 turmeric root extract 500 mg capsule 1,000 mg PO BID RF: 0 budesonide-formoterol 160-4.5 mcg/actuation HFA aerosol inhaler 2 puff INHALATION BID RF: 0 coenzyme Q10 30 mg capsule 60 mg PO DAILY RF: 0 cyclobenzaprine 10 mg tablet 5 - 10 mg PO BID PRN (Reason: muscle spasm) Qty: 20 RF: 0 montelukast 10 mg tablet 10 mg PO DAILY Qty: 90 RF: 1 Primary Care Provider: Margarita Garcia Referrals: Margarita Garcia MD [Primary Care Provider] - 1 Week if not improving Activity Restrictions/Additional Instructions: Plenty of fluids and rest. Tylenol and Motrin as needed. Ibjv-xir-kodnhni cough syrup as needed. Follow-up with your doctor if not improving. Your Covid test was negative. Your chest x-ray was normal. Disposition Disposition: Home, Self Care
[2020-11-03 11:55] VITALS: O2SAT 100
--- NOTE | 2020-11-03 11:57 | EKG12_ITS ---
Test Reason : COUGH Blood Pressure : / mmHG Vent. Rate : 068 BPM Atrial Rate : 068 BPM P-R Int : 184 ms QRS Dur : 094 ms QT Int : 396 ms P-R-T Axes : 057 016 025 degrees QTc Int : 421 ms Normal sinus rhythm Normal ECG Confirmed by MARIKA LOZANO, VITALY ([id number]), slot editor TAI RUBY ([id number]) on 11/04/2020 1:22:09 PM Referred By: REGGIE Confirmed By:NEMESIO HAIRSTON MD
[2020-11-03 14:01] VITALS: PULSE 72; RESP 16; O2SAT 100
== END 2020-11-03 14:02 | disposition home or self-care (01) ==
PROVIDERS: Emergency Provider Emergency Medicine; PCP Internal Medicine
DX: B34.9 Viral infection, unspecified (principal); R05 Cough; I10 Essential (primary) hypertension; F41.9 Anxiety disorder, unspecified; J44.9 Chronic obstructive pulmonary disease, unspecified; M79.7 Fibromyalgia; F31.9 Bipolar disorder, unspecified; K21.9 Gastro-esophageal reflux disease without esophagitis; E78.5 Hyperlipidemia, unspecified; K58.9 Irritable bowel syndrome, unspecified; G47.33 Obstructive sleep apnea (adult) (pediatric); Z86.73 Personal history of transient ischemic attack (TIA), and cerebral infarction without residual deficits; Z79.82 Long term (current) use of aspirin; Z79.899 Other long term (current) drug therapy
CPT/HCPCS: 71045; 87426; 93005; 99282

== ENCOUNTER → 2021-01-11 | Outpatient (CLI) | payer OTHER, SELFPAY | END | disposition home or self-care (01) | LOC: LABSPEC 12:34 | PROVIDERS: PCP Internal Medicine; Visit Provider Physician Assistant | DX: Z11.52 Encounter for screening for COVID-19 (principal) | CPT/HCPCS: 87635; U0005; U0003 ==

== ENCOUNTER → 2021-01-26 13:37 | Outpatient (CLI) | payer OTHER, SELFPAY ==
[2021-01-26 15:16] LABS: Anion Gap 3 (5-15); BUN 10 mg/dL (7-18); BUN/Creat Ratio 14.3 RATIO (10-20); Calcium,Total 9.5 mg/dL (8.5-10.1); Chloride 103 mmol/L (98-107); EST Glomerular Filtration Rate 91 mL/min (>60); Est Glom Filt Rate - Afr Amer 110 mL/min (>60); Glucose 119 mg/dL (74-106); Potassium 3.8 mmol/L (3.5-5.1); Sodium Level 137 mmol/L (136-145)
== END ==
PROVIDERS: PCP Internal Medicine; Visit Provider Internal Medicine
DX: I10 Essential (primary) hypertension (principal)
CPT/HCPCS: 36415; 80048

== ENCOUNTER 2021-02-15 08:16 | Outpatient (CLI) | payer OTHER, SELFPAY ==
[2021-02-15 08:20] LABS: Mucous, Urine 0 SEEN /hpf (<or=2+); Squamous Epithelial Cells - UA 0 SEEN /hpf (5-10)
[2021-02-15 12:38] LABS: Color, Urine Yellow (Yellow); Glucose, Dipstick Normal (Normal); Ketone-Dipstick Negative (Negative); Leukocyte Esterase-Dipstick 100 /ul (Negative); Nitrite-Dipstick Negative (Negative); Occult Blood-Urine 50 /ul (Negative); Protein-Dipstick Negative (Negative); Urine Bilirubin Dipstick Negative (Negative); Urine Clarity Clear (Clear); Urine Urobilinogen Normal (Normal)
[2021-02-15 12:47] LABS: Bacteria 1+ /hpf (None Seen); Red Blood Cells-Urine 0-5 SEEN /hpf (0-5); White Blood Cells 0-5 SEEN /hpf (0-5)
== END 2021-02-15 23:59 | disposition short-term general hospital (02) ==
LOC: LABSPEC 08:17
PROVIDERS: PCP Internal Medicine; Visit Provider Physician Assistant
DX: R30.0 Dysuria (principal)
CPT/HCPCS: 81001; 87077; 87086; 87088; 87186

== ENCOUNTER 2021-08-03 20:16 | Emergency (ER) | payer OTHER, SELFPAY ==
[2021-08-03 20:17] VITALS: BP 134/81; PULSE 78; RESP 18; TEMP 36.6; O2SAT 98; BMI 27.8
[2021-08-03 20:19] VITALS: BP 134/81; PULSE 78; RESP 18; TEMP 36.6; O2SAT 98
--- NOTE | 2021-08-03 21:02 | EDS_ITS ---
HPI History of Present Illness Chief Complaint: General Illness Detail of Chief Complaint: URI symptoms for 2 to 3 days. Informant: patient Onset/Context/Timing Onset: Days Context: Gradual Onset Timing: Continuous Current Severity: Mild Maximum Severity: Mild Narrative Narrative: 41-year-old female URI symptoms since Saturday. Had COVID about a year ago think she may have it again. Had 1 episode of nausea and vomiting last night. No diarrhea. No fever. No dysuria. Prior similar symptoms: Yes Recent Illness/Hospitalization: No PFSH PFSH Medical History Anemia Arthritis Asthma Back pain Bee sting reaction Bipolar depression COPD (chronic obstructive pulmonary disease) CVA (cerebral vascular accident) Difficulty swallowing solids Dizziness Emphysema lung Fibromyalgia Flu vaccine need GERD (gastroesophageal reflux disease) GI problem Hernia History of stroke Hx of migraine headaches Hyperlipidemia Hypertension Hyponatremia IBS (irritable bowel syndrome) Insomnia Lumbar radiculopathy Memory impairment OAB (overactive bladder) Orthostatic hypotension CHIQUI (obstructive sleep apnea) Pericardial effusion (noninflammatory) right scapular mass Sciatica Seasonal allergies Vaginal atrophy Home Medications albuterol sulfate 90 mcg/actuation aerosol inhaler 2 puff inhalation Q4H PRN PRN Sob &/Or Wheezing 12/26/16 [History Last Taken Unknown] cholecalciferol (vitamin D3) 125 mcg (5,000 unit) disintegrating tablet 5,000 unit PO DAILY 12/26/16 [History Last Taken Unknown] cyanocobalamin (vitamin B-12) 500 mcg tablet 500 mcg PO DAILY 12/26/16 [History Last Taken Unknown] omeprazole 20 mg capsule,delayed release 40 mg PO DAILY 12/26/16 [History Last Taken Unknown] prazosin 1 mg capsule 1 mg PO DAILY 12/26/16 [History Last Taken Unknown] aspirin 81 mg chewable tablet 81 mg PO DAILY@0800 12/27/16 [Rx Last Taken Unknown] apple cider vinegar 500 mg tablet 450 mg PO BREAKFAST 01/06/20 [History Last Taken Unknown] diclofenac sodium 1 % topical gel 2 g topical ONCE 01/06/20 [History Last Taken Unknown] turmeric root extract 500 mg capsule 1,000 mg PO BID 01/06/20 [History Last Taken Unknown] budesonide-formoterol HFA 160 mcg-4.5 mcg/actuation aerosol inhaler 2 puff inhalation BID 03/07/20 [History Last Taken Unknown] clonidine HCl 0.1 mg tablet 0.1 mg PO Q6H PRN hypertensive emergency 03/07/20 [History Last Taken Unknown] coenzyme Q10 30 mg capsule 60 mg PO DAILY 03/07/20 [History Last Taken Unknown] eluxadoline 100 mg tablet (Viberzi) 50 mg PO DAILY 03/07/20 [History Last Taken Unknown] hydroxyzine HCl 25 mg tablet 50 mg PO TID PRN Anxiety 03/07/20 [History Last Taken Unknown] lamotrigine 150 mg tablet 200 mg PO BID 03/07/20 [History Last Taken Unknown] ectfljul-kwqm-lklkn acid 240 mcg-vit K 120 gyv-mlyibh-haen 293 tablet (Alive Women's 50 Plus (fruit-veg blend)) 1 tab PO DAILY 03/07/20 [History Last Taken Unknown] ferrous sulfate 325 mg (65 mg iron) tablet,delayed release 325 mg PO DAILY 04/01/20 [History Last Taken Unknown] olanzapine 5 mg tablet 10 mg PO DAILY 04/01/20 [History Last Taken Unknown] ondansetron HCl 4 mg tablet (Zofran) 4 mg PO Q8H PRN Nausea 04/01/20 [History Last Taken Unknown] pyridoxine (vitamin B6) 100 mg tablet 100 mg PO DAILY 04/01/20 [History Last Taken Unknown] aripiprazole 2 mg tablet (Abilify) 2 mg PO DAILY 05/04/20 [History Last Taken Unknown] carbamazepine 100 mg capsule,extended release [id number] 100 mg PO BID 10/06/20 [History Last Taken Unknown] oxybutynin chloride 15 mg tablet,extended release 24 hr 15 mg PO DAILY 10/06/20 [History Last Taken Unknown] lisinopril 10 mg tablet 10 mg PO DAILY #90 tabs 01/10/21 [Rx Last Taken Unknown] simvastatin 20 mg tablet 20 mg PO QHS #90 tabs 01/10/21 [Rx Last Taken Unknown] montelukast 10 mg tablet 10 mg PO DAILY #90 tabs 04/24/21 [Rx Last Taken Unknown] estradiol (Estrace) 1 g vaginal 2XW 05/08/21 [History Last Taken Unknown] melatonin 3 mg capsule 20 mg PO HS Sleep 05/12/21 [History Last Taken Unknown] trazodone 100 mg tablet 100 mg PO QHS #90 tabs 05/12/21 [Rx Last Taken Unknown] cyclobenzaprine 10 mg tablet 5 - 10 mg PO BID PRN muscle spasm #20 tabs 05/15/21 [Rx Last Taken Unknown] gabapentin 800 mg tablet 800 mg PO TID #90 tabs 07/14/21 [Rx Last Taken Unknown] Allergy/AdvReac Type Severity Reaction Status Date / Time bee venom protein (honey bee) Allergy Mild SWELLING/ Verified 08/03/21 20:20 SOB Family History Unknown Past medical history not known due to adoption Surgical History H/O laparoscopy History of total hysterectomy Hx of breast biopsy Social History Smoking Status: Never smoker alcohol intake: current alcohol intake frequency: 3 or more drinks per day Alcohol type: beer and hard liquor substance use type: does not use caffeine: Yes what type of physical activity do you participate in: walking frequency: 1-2 times per week seatbelt use: always do you feel safe at home: Yes additional social history: -Aashish ROS ROS ED ROS Narrative Cough. Runny nose. Review of Systems ROS Unobtainable: Denies due to encephalopathy Constitutional Constitutional ED: Denies chills or fever(s) Eyes Eyes: Denies blurry vision ENT ENT ED: Reports rhinorrhea; Denies ear pain Cardiovascular Cardiovascular: Denies chest pain, palpitations or racing heartbeat Respiratory/Chest Respiratory/Chest: Reports cough; Denies dyspnea Gastrointestinal Gastrointestinal: Denies abdominal pain, constipation, diarrhea or melena Genitourinary Genitourinary ED: Denies dysuria Musculoskeletal Musculoskeletal: Denies arthralgias Integumentary Denies abscess Neurologic Neurologic: Denies headache(s) Psychiatric Psychiatric: Denies anxiety Allergic/Immunologic Allergic/Immunologic ED: Denies mouth swelling EXAM Physical Exam Narrative Exam Narrative: 41-year-old female no acute distress. Vital signs stable afebrile. Does not look septic or toxic. Does not look dehydrated. Pulse ox 90% on room air no signs hypoxia. H EENT exam laryngitis. Posterior pharynx unremarkable. Moist and pink. No erythema or exudate. No stridor. Clear rhinorrhea. Neck nontender no lymphadenopathy. Lungs clear to auscultation bilaterally. Heart regular rhythm no murmur rate about 80. Abdomen soft nontender. Moving all 4 extremities. Nontender no edema. Const Vital Signs: 08/03/21 20:17 08/03/21 20:19 08/03/21 21:05 Temperature 97.9 F 97.9 F Temperature Source Temporal Temporal Pulse Rate 78 78 Respiratory Rate 18 18 Respiratory Effort Normal Respiratory Depth Normal Respiratory Pattern Normal Blood Pressure 134/81 H 134/81 H Blood Pressure Mean 98 Pulse Ox 98 98 Oxygen Delivery Method Room Air Room Air Positive well nourished, well developed and obese; Negative for cachectic, contractures or unkempt General Appearance ED: well developed; Negative for unkempt, cachectic, contractures or pallor Nutritional Appearance: obese; Negative for cachectic HEENT Reports moist mucous membranes; Denies dry mucous membranes Negative for trauma Mouth ED: No dry mucous membranes Mouth: No dry mucous membranes Eyes PERRL and EOMs intact bilaterally General Eye ED: Negative for pale conjunctiva or scleral icterus Neck no lymphadenopathy, supple and no JVD General: Negative for tenderness Lymph Lymphatic: Negative for other Chest Wall inspection of chest normal and palpation of chest normal Resp normal respiratory effort and clear to auscultation bilaterally Effort and Inspection: Negative for retractions Auscultation: Negative for rales, rhonchi or wheezes Cardio regular rate, regular rhythm, S1 normal heart sound, S2 normal heart sound and no murmurs Palpation: Negative for palpable S3 Rate: Negative for bradycardia Rhythm: Negative for abnormal rhythm GI normal to inspection, nondistended, normoactive bowel sounds, non-tender, non- distended and no masses; Negative for hepatosplenomegaly Inspection: Negative for abdominal distention Auscultation: normoactive bowel sounds Palpation: soft; Negative for tender, guarding, splenomegaly, mass or rebound tenderness present Back/Spine no CVA tenderness General Back: Negative for CVA tenderness Cervical Spine: Negative for cervical spine tenderness Thoracic Spine / Upper Back: Negative for thoracic spinal tenderness Lumbar Spine / Lower Back: Negative for lumbar spinal tenderness Extremity normal to inspection General Extremety ED: Negative for edema or tenderness General Extremity: Negative for edema Neuro oriented x3 Sensorium / Orientation: alert and orientation impaired; Negative for lethargic or stuporous Motor Exam: strength 5/5 throughout Psych mental status grossly normal Appearance: Negative for unkempt Attitude: No agitated Mood & Affect: Negative for depressed or anxious Skin no rashes or lesions noted and no wounds General Skin Exam: Negative for jaundice or pallor Rashes: No rashes noted Trauma: Negative for abrasion Wounds: Negative for wounds noted MDM MDM MDM Narrative Medical decision making narrative: 61-year-old female with URI. Possible COVID. Test pending. X-rays not necessary. Lungs are clear. Pulse ox 98%. COVID test negative repeat exam unchanged. Treated as a viral URI. Lab Data Attestation: I reviewed the patient's lab results. Lab results narrative: COVID test negative. Discharge Plan Triage Chief Complaint: General Illness ED Provider: Marcelino Valdovinos Dx/Rx/DC Orders Prescriptions: No Action diclofenac sodium 1 % gel 2 g TOPICAL ONCE Rx Instructions: apply to single elbow, wrist or hand; for hand includes palm/fingers/back of hand apple cider vinegar 500 mg tablet 500 mg tablet 450 mg PO BREAKFAST hydroxyzine HCl 25 mg tablet 50 mg PO TID PRN (Reason: Anxiety) lamotrigine 150 mg tablet 200 mg PO BID ferrous sulfate 325 mg (65 mg iron) tablet,delayed release (DR/EC) 325 mg PO DAILY Rx Instructions: twice weekly melatonin 3 mg capsule 20 mg PO HS Rx Instructions: taking 20 mg QHS clonidine HCl 0.1 mg tablet 0.1 mg PO Q6H PRN (Reason: hypertensive emergency) Alive Women's 50 Plus (blend) 240-120-300 mcg tablet 1 tab PO DAILY Viberzi 100 mg tablet 50 mg PO DAILY Rx Instructions: must administer with a meal/food olanzapine 5 mg tablet 10 mg PO DAILY ondansetron HCl [Zofran] 4 mg tablet 4 mg PO Q8H PRN (Reason: Nausea) aripiprazole [Abilify] 2 mg tablet 2 mg PO DAILY pyridoxine (vitamin B6) 100 mg tablet 100 mg PO DAILY oxybutynin chloride 15 mg tablet extended release 24hr 15 mg PO DAILY carbamazepine 100 mg capsule, ER multiphase 12 hr 100 mg PO BID Label Comments: take 2 capsules at night and one in the morning estradiol [Estrace] 0.01 % (0.1 mg/gram) cream 1 g vaginal 2XW trazodone 100 mg tablet 100 mg PO QHS Qty: 90 3RF prazosin 1 MG capsule 1 mg PO DAILY cyanocobalamin (vitamin B-12) 500 MCG tablet 500 mcg PO DAILY omeprazole 20 MG capsule 40 mg PO DAILY albuterol sulfate 1 INHALER inhaler 2 puff INHALATION Q4H PRN PRN (Reason: Sob &/Or Wheezing) cholecalciferol (vitamin D3) 5,000 UNIT tablet,disintegrating 5,000 unit PO DAILY aspirin 81 MG tablet,chewable 81 mg PO DAILY@0800 0RF turmeric root extract 500 mg capsule 1,000 mg PO BID budesonide-formoterol 160-4.5 mcg/actuation HFA aerosol inhaler 2 puff INHALATION BID coenzyme Q10 30 mg capsule 60 mg PO DAILY lisinopril 10 mg tablet 10 mg PO DAILY Qty: 90 3RF simvastatin 20 mg tablet 20 mg PO QHS Qty: 90 2RF montelukast 10 mg tablet 10 mg PO DAILY Qty: 90 1RF cyclobenzaprine 10 mg tablet 5 - 10 mg PO BID PRN (Reason: muscle spasm) Qty: 20 0RF gabapentin 800 mg tablet 800 mg PO TID Qty: 90 0RF Primary Care Provider: Margarita Garcia Referrals: Margarita Garcia MD [Primary Care Provider] -
== END 2021-08-03 22:19 | disposition home or self-care (01) ==
PROVIDERS: Emergency Provider Emergency Medicine; PCP Internal Medicine; Visit Provider Emergency Medicine
DX: J06.9 Acute upper respiratory infection, unspecified (principal); J44.9 Chronic obstructive pulmonary disease, unspecified; F31.9 Bipolar disorder, unspecified; I10 Essential (primary) hypertension; E78.5 Hyperlipidemia, unspecified; Z86.16 Personal history of COVID-19; M19.90 Unspecified osteoarthritis, unspecified site; Z86.73 Personal history of transient ischemic attack (TIA), and cerebral infarction without residual deficits; M79.7 Fibromyalgia; K21.9 Gastro-esophageal reflux disease without esophagitis; K58.9 Irritable bowel syndrome, unspecified; M54.16 Radiculopathy, lumbar region; G47.33 Obstructive sleep apnea (adult) (pediatric); Z79.82 Long term (current) use of aspirin; Z79.899 Other long term (current) drug therapy; E66.9 Obesity, unspecified; Z68.27 Body mass index [BMI] 27.0-27.9, adult
CPT/HCPCS: 87811; 99282

== ENCOUNTER → 2021-10-30 | Outpatient (CLI) | payer OTHER, SELFPAY ==
[2021-10-30 13:13] LABS: HIV - WCH Non-Reactive (Nonreactive); Hepatitis C Antibody Non-Reactive (Nonreactive); Syphilis Antibodies Non-reactive
[2021-10-30 14:18] LABS: Chlamydia Trachomatis by PCR Negative (Negative); Neisserai gonorrhoeae by PCR Negative (Negative); Probe Check PASS; Specimen Processing Control PASS
[2021-10-30 23:25] LABS: Sample Adequacy Control PASS
== END | disposition home or self-care (01) ==
LOC: BIMLAB 10:53
PROVIDERS: PCP Internal Medicine; Referring Provider Internal Medicine; Visit Provider Internal Medicine
DX: Z11.3 Encounter for screening for infections with a predominantly sexual mode of transmission (principal)
CPT/HCPCS: 36415; 86703; 86780; 86803; 87491; 87591

== ENCOUNTER → 2022-01-19 | Outpatient (CLI) | payer OTHER, SELFPAY ==
--- NOTE | 2022-01-19 12:18 | BI_ITS ---
MAMMOGRAPHY - BILATERAL SCREENING REASON FOR EXAM: Female, 61 years old. Routine annual screening examination. PERTINENT HISTORY: Non-contributory. Remote left excisional breast biopsy. TECHNIQUE: Digital bilateral breast quynh (3D mammographic acquisition) in the CC and MLO projections. 2-D mediolateral oblique (MLO) and craniocaudad (CC) views of both breasts were obtained. CAD: Full Field Digital Mammography with Computer Added Detection was performed. COMPARISON: Comparison is made with prior examination dated 09/23/2020 and September [id number]. FINDINGS: Breast Composition: There are scattered areas of fibroglandular density. There are no dominant masses or suspicious calcifications. No other significant abnormalities are identified. There has been no significant change since the prior study. BI/SCRN MAMM (CAD)W/QUYNH BILAT IMPRESSION: Stable bilateral screening mammogram. Yearly follow-up mammogram recommended. (A) ASSESSMENT CATEGORY: BIRADS Category 1: Negative. A letter regarding these results will be sent to the patient by the facility within 30 days. Approximately 10% of breast cancers are not detected by mammography. A normal mammogram should not delay biopsy of a clinically suspicious abnormality. [id number] Electronically Signed: Bruce Ansari MD at 13:12 EST ,
== END | disposition home or self-care (01) ==
PROVIDERS: PCP Internal Medicine; Referring Provider Obstetrics & Gynecology; Visit Provider Obstetrics & Gynecology
DX: Z12.31 Encounter for screening mammogram for malignant neoplasm of breast (principal); Z92.89 Personal history of other medical treatment
CPT/HCPCS: 77063; 77067

== ENCOUNTER → 2022-02-06 | Outpatient (CLI) | payer OTHER, SELFPAY | END | disposition home or self-care (01) | LOC: LABSPEC 11:37 | PROVIDERS: PCP Internal Medicine; Referring Provider Physician Assistant; Visit Provider Physician Assistant | DX: Z20.822 Contact with and (suspected) exposure to COVID-19 (principal) | CPT/HCPCS: 87635; U0003; U0005 ==

== ENCOUNTER → 2022-02-17 | Outpatient (CLI) | payer OTHER, SELFPAY ==
[2022-02-17 12:13] LABS: Absolute Lymphocyte Count 1.57 X10^3/uL (0.83-4.51); Absolute Neutrophil Count 3.5 X10^3/uL (2.0-7.7); Eosinophil# 0.05 X10^3/uL; Eosinophils% 0.9 % (0-5); Hematocrit 35.3 % (37-47); Hemoglobin 12.3 g/dL (12.0-15.0); Lymphocyte # 1.57 X10^3/ul (0.83-4.51); Lymphocyte % 28.3 % (19-41); Mean Corp Hgb Conc 34.8 g/dL (32-36); Mean Corpuscular Hgb 31.7 pg (27.0-32.0); Mean Platelet Vol. 8.1 fl (6.2-12.0); Monocyte# 0.44 X10^3/uL; Monocyte% 7.9 % (0-10); NRBC Flagged by Analyzer 0 % (0-5); Neutrophil # 3.47 X10^3/uL (2.7-7.7); Neutrophil % 62.5 % (47-70); Platelet Count 373 K/mm3 (150-450); RBC Distribution Width CV 12.7 % (11.6-14.6); RBC Distribution Width SD 41.1 fl (35.1-43.9); Red Blood Count 3.88 M/mm3 (4.2-5.4); White Blood Count 5.6 K/mm3 (4.4-11.0)
[2022-02-17 12:38] LABS: ALB/GLOB Ratio 1.2 RATIO (0.9-2.4); AST(SGOT) 13 U/L (15-37); Alanine Aminotransfer ALT/SGPT 23 U/L (13-56); Albumin, Serum 3.8 g/dL (3.2-5.0); Alkaline Phosphatase 79 U/L (45-117); Anion Gap 4 (5-15); BUN 8 mg/dL (7-18); BUN/Creat Ratio 10.5 RATIO (10-20); Calcium,Total 8.9 mg/dL (8.5-10.1); Chloride 96 mmol/L (98-107); Creatinine, Serum 0.76 mg/dL (0.55-1.02); EST Glomerular Filtration Rate 83 mL/min (>60); Est Glom Filt Rate - Afr Amer 100 mL/min (>60); Globulin 3.2 g/dL (2.2-4.2); Glucose 126 mg/dL (74-106); Sodium Level 130 mmol/L (136-145)
== END | disposition home or self-care (01) ==
LOC: LAB 11:59
PROVIDERS: PCP Internal Medicine; Referring Provider Internal Medicine; Visit Provider Internal Medicine
DX: I10 Essential (primary) hypertension (principal); E78.5 Hyperlipidemia, unspecified
CPT/HCPCS: 36415; 80053; 85025

== ENCOUNTER → 2022-03-15 | Outpatient (CLI) | payer OTHER, SELFPAY | END | disposition home or self-care (01) | PROVIDERS: PCP Internal Medicine; Referring Provider Otolaryngology Otolaryngology/Facial Plastic Surgery; Visit Provider Otolaryngology Otolaryngology/Facial Plastic Surgery | DX: J32.8 Other chronic sinusitis (principal) | CPT/HCPCS: 87070; 87205 ==

== ENCOUNTER → 2022-03-17 | Outpatient (CLI) | payer OTHER, SELFPAY ==
[2022-03-17 10:36] LABS: Cholesterol 163 mg/dL (200); High Density Lipoprotein 67 mg/dL; Triglycerides 59 mg/dL; Very Low Density Lipoprotein 12 mg/dL (5-40)
== END | disposition home or self-care (01) ==
LOC: LAB 09:27
PROVIDERS: PCP Internal Medicine; Visit Provider Internal Medicine
DX: E78.5 Hyperlipidemia, unspecified (principal)
CPT/HCPCS: 36415; 80061

== ENCOUNTER 2022-04-12 18:09 | Emergency (ER) | payer OTHER, SELFPAY ==
[2022-04-12 18:10] VITALS: BP 155/78; PULSE 70; RESP 16; TEMP 36.1; O2SAT 98; BMI 25.9
--- NOTE | 2022-04-12 20:29 | CT_ITS ---
EXAM: CT HEAD WITHOUT INTRAVENOUS CONTRAST CLINICAL INDICATION: Pain TECHNIQUE: Multiple axial images were obtained of the head without intravenous contrast. This CT exam was performed using one or more of the following dose reduction techniques: automated exposure control, adjustment of the mA and/or kV according to patient size, and/or use of iterative reconstruction technique. This report was created using [employer] report generation technology. RADIATION DOSE: CTDIvol = 44.99 mGy, DLP = 779.24 mGy-cm COMPARISON: 9.6.20 FINDINGS: BRAIN AND EXTRA-AXIAL SPACES: Unremarkable. No intra- or extra-axial hemorrhage. No evidence of acute infarct. No intracranial mass or mass effect. There is preservation of the torres/white matter interface. Posterior fossa structures are unremarkable. Ventricles are appropriate for age. No hydrocephalus. Basal cisterns are patent. BONES/JOINTS: Unremarkable. No discrete lytic or blastic abnormalities. SINUSES: Unremarkable as visualized. Clear. MASTOID AIR CELLS: Unremarkable. Clear. ORBITS: Visualized globes, extraocular muscles, optic nerves and retrobulbar fat appear unremarkable. CT/Brain/Head without Contrast IMPRESSION: Negative head/brain CT without intravenous contrast. Electronically Signed: Guillermo Javier MD at 21:29 EST ,
[2022-04-12] MEDS: 0.9% Normal Saline 1,000 ML 999 ML IV (20:49)
[2022-04-12] MEDS: Metoclopramide 10 MG/2 ML Vial IV (20:50)
[2022-04-12] MEDS: DiphenhydrAMINE 50 MG/ML Syringe 25 MG IV (20:50)
[2022-04-12] MEDS: Ketorolac 15 MG/ML Vial IV (22:19)
--- NOTE | 2022-04-12 23:51 | EDS_ITS ---
HPI History of Present Illness Chief Complaint: Headache Narrative Narrative: 61-year-old female with headache for about a week and a half. It slowly came on and got worse over this timeframe. She complains of light sensitivity and sound sensitivity. No head trauma. No history of migraine. No visual complaints. No neck pain or stiffness. She is of associated nausea but is not vomiting. [facility] Medical History Anemia Arthritis Asthma Back pain Bee sting reaction Bipolar depression Bipolar II disorder COPD (chronic obstructive pulmonary disease) CVA (cerebral vascular accident) Dermatitis, contact Difficulty swallowing solids Dizziness Emphysema lung Fibromyalgia Flu vaccine need GERD (gastroesophageal reflux disease) GI problem Hernia History of stroke Hx of migraine headaches Hyperlipidemia Hypertension Hyponatremia IBS (irritable bowel syndrome) Insomnia Low libido Lumbar radiculopathy Memory impairment OAB (overactive bladder) Orthostatic hypotension CHIQUI (obstructive sleep apnea) Overweight (BMI 25.0-29.9) Pericardial effusion (noninflammatory) right scapular mass Sciatica Screening for STD (sexually transmitted disease) Seasonal allergies Sinusitis Vaginal atrophy Home Medications albuterol sulfate 90 mcg/actuation aerosol inhaler 2 puff inhalation Q4H PRN PRN Sob &/Or Wheezing 12/26/16 [History Last Taken Unknown] cholecalciferol (vitamin D3) 125 mcg (5,000 unit) disintegrating tablet 5,000 unit PO DAILY 12/26/16 [History Last Taken Unknown] cyanocobalamin (vitamin B-12) 500 mcg tablet 500 mcg PO DAILY 12/26/16 [History Last Taken Unknown] aspirin 81 mg chewable tablet 81 mg PO DAILY@0800 12/27/16 [Rx Last Taken Unknown] apple cider vinegar 500 mg tablet 450 mg PO BREAKFAST 01/06/20 [History Last Taken Unknown] diclofenac sodium 1 % topical gel 2 g topical ONCE 01/06/20 [History Last Taken Unknown] turmeric root extract 500 mg capsule 1,000 mg PO BID 01/06/20 [History Last Taken Unknown] budesonide-formoterol HFA 160 mcg-4.5 mcg/actuation aerosol inhaler 2 puff inhalation BID 03/07/20 [History Last Taken Unknown] coenzyme Q10 30 mg capsule 60 mg PO DAILY 03/07/20 [History Last Taken Unknown] eluxadoline 100 mg tablet (Viberzi) 50 mg PO DAILY 03/07/20 [History Last Taken Unknown] yhipcjkg-eegb-aeuzj acid 240 mcg-vit K 120 gqr-rpmymt-auey 293 tablet (Alive Women's 50 Plus (fruit-veg blend)) 1 tab PO DAILY 03/07/20 [History Last Taken Unknown] pyridoxine (vitamin B6) 100 mg tablet 100 mg PO DAILY 04/01/20 [History Last Taken Unknown] oxybutynin chloride 15 mg tablet,extended release 24 hr 15 mg PO DAILY 10/06/20 [History Last Taken Unknown] estradiol 0.01% (0.1 mg/gram) vaginal cream (Estrace) 1 g vaginal 2XW 05/08/21 [History Last Taken Unknown] melatonin 3 mg capsule 20 mg PO HS Sleep 05/12/21 [History Last Taken Unknown] trazodone 100 mg tablet 100 mg PO QHS #90 tabs 05/12/21 [Rx Last Taken Unknown] lisinopril 10 mg tablet 10 mg PO DAILY #90 tabs 10/11/21 [Rx Last Taken Unknown] simvastatin 20 mg tablet 20 mg PO QHS #90 tabs 10/11/21 [Rx Last Taken Unknown] omeprazole 20 mg capsule,delayed release 40 mg PO BID 10/30/21 [History Last Taken Unknown] montelukast 10 mg tablet 10 mg PO DAILY #90 tabs 11/10/21 [Rx Last Taken Unknown] ondansetron HCl 4 mg tablet 4 mg PO Q8H PRN Nausea #15 tabs 02/08/22 [Rx Last Taken Unknown] hydrocortisone 2.5 % topical cream 1 applic topical BID PRN rash #30 grams 02/14/22 [Rx Last Taken Unknown] cyclobenzaprine 10 mg tablet 5 - 10 mg PO BID PRN muscle spasm #20 tabs 02/26/22 [Rx Last Taken Unknown] gabapentin 800 mg tablet 800 mg PO TID #90 tabs 02/26/22 [Rx Last Taken Unknown] benzonatate 200 mg capsule 200 mg PO TID PRN cough #90 caps 03/19/22 [Rx Last Taken Unknown] lamotrigine 200 mg tablet 200 mg PO BID 30 days #60 tabs 04/03/22 [Rx Last Taken Unknown] prazosin 1 mg capsule 1 mg PO DAILY 30 days #30 caps 04/03/22 [Rx Last Taken Unknown] hydroxyzine HCl 50 mg tablet 50 mg PO TID Anxiety 30 days #90 tabs 04/04/22 [Rx Last Taken Unknown] Allergy/AdvReac Type Severity Reaction Status Date / Time bee venom protein (honey bee) Allergy Mild SWELLING/ Verified 04/12/22 18:12 SOB Family History Unknown Past medical history not known due to adoption Surgical History H/O laparoscopy History of total hysterectomy Hx of breast biopsy Social History Smoking Status: Never smoker alcohol intake: current alcohol intake frequency: 3 or more drinks per day Alcohol type: beer and hard liquor substance use type: does not use caffeine: Yes what type of physical activity do you participate in: walking frequency: 1-2 times per week seatbelt use: always do you feel safe at home: Yes additional social history: -Aashish ROS ROS ED Constitutional Constitutional ED: Denies chills, fever(s) or sweats Eyes Eyes: Reports other Details: Light sensitive ; Denies blurry vision or change in vision ENT ENT ED: Reports other Details: Sound sensitivity ; Denies ear pain or sore throat Cardiovascular Cardiovascular: Denies chest pain, palpitations or racing heartbeat Respiratory/Chest Respiratory/Chest: Denies cough, dyspnea or sputum Gastrointestinal Gastrointestinal: Denies abdominal pain, constipation, diarrhea, nausea or vomiting Genitourinary Genitourinary ED: Denies dysuria, hematuria or urinary frequency Musculoskeletal Musculoskeletal: Denies arthralgias, myalgias or neck pain Integumentary Denies abscess, Abrasions or rash Neurologic Neurologic: Denies headache(s), paresthesias or weakness Psychiatric Psychiatric: Denies anxiety, depression, suicidal ideation or suicidal thoughts Endocrine Endocrinology: Denies polydipsia or polyuria EXAM Physical Exam Const Vital Signs: 04/12/22 18:10 04/13/22 00:05 Temperature 97 F L Temperature Source Temporal Pulse Rate 70 57 L Respiratory Rate 16 18 Blood Pressure 155/78 H 154/78 H Blood Pressure Mean 103 103 Pulse Ox 98 98 Oxygen Delivery Method Room Air Room Air MDM MDM MDM Narrative Medical decision making narrative: Patient presenting with headache for about a week and a half patient states he has no history of migraine. Patient does admit to photophobia and phonophobia. Patient medicated with Reglan, Benadryl. Differential at this point is migraine, tension headache, tumor, intracranial hemorrhage. She does not be focal neurologic deficits however. She is not lightheaded or dizzy. Denies any trauma. CT brain is obtained and is negative for acute findings. CBC shows no leukocytosis. Hemoglobin is 10.3 which is lower than it was in February however the patient denies any black or bloody stools. On her BMP her creatinine is normal and her BUN is normal with no suggestion of GI bleed. Potassium 3.4. Glucose 141 without anion gap. Patient states she still had pain after CT was performed and was given Toradol. On reevaluation she still having about a 5/10 pain. She was given Solu-Medrol and Tylenol. Patient counseled on all findings. I feel she stable for discharge at this time. Impression: 1. Headache 2. Anemia 3. Photophobia 4. Phone of Lab Data Labs: Laboratory Results - last 24 hr 04/13/22 04/13/22 00:15 00:15 WBC 5.1 RBC 3.32 L Hgb 10.3 L Hct 30.6 L MCV 92.2 MCH 31.0 MCHC 33.7 RDW Std Deviation 43.0 RDW Coeff of Mallory 12.6 Plt Count 269 MPV 9.5 Immature Gran % (Auto) 0.200 Neut % (Auto) 43.1 L Lymph % (Auto) 44.0 H [place] % (Auto) 8.4 Eos % (Auto) 4.3 Baso % (Auto) 0.0 Absolute Neuts (auto) 2.2 Absolute Lymphs (auto) 2.26 Nucleated RBC % 0 Sodium 137 Potassium 3.4 L Chloride 104 Carbon Dioxide 27.0 Anion Gap 6 BUN 8 Creatinine 0.87 Estim Creat Clear Calc 55.07 Est GFR (MDRD) Af Amer 86 Est GFR (MDRD) Non-Af 71 BUN/Creatinine Ratio 9.2 L Glucose 141 H Calcium 8.7 Radiography Diagnostic Testing: Clinical Impression(s) from Imaging Studies Brain CT 04/12/22 20:29 IMPRESSION: Negative head/brain CT without intravenous contrast. Electronically Signed: Guillermo Javier MD at 21:29 EST , Discharge Plan Triage Chief Complaint: Headache ED Provider: Bartolome Anguiano Dx/Rx/DC Orders Prescriptions: No Action diclofenac sodium 1 % gel 2 g TOPICAL ONCE Rx Instructions: apply to single elbow, wrist or hand; for hand includes palm/fingers/back of hand apple cider vinegar 500 mg tablet 500 mg tablet 450 mg PO BREAKFAST melatonin 3 mg capsule 20 mg PO HS Rx Instructions: taking 20 mg QHS Alive Women's 50 Plus (blend) 240-120-300 mcg tablet 1 tab PO DAILY Viberzi 100 mg tablet 50 mg PO DAILY Rx Instructions: must administer with a meal/food pyridoxine (vitamin B6) 100 mg tablet 100 mg PO DAILY oxybutynin chloride 15 mg tablet extended release 24hr 15 mg PO DAILY estradiol [Estrace] 0.01 % (0.1 mg/gram) cream 1 g vaginal 2XW trazodone 100 mg tablet 100 mg PO QHS Qty: 90 3RF hydrocortisone 2.5 % cream 1 applic topical BID PRN (Reason: rash) Qty: 30 2RF cyclobenzaprine 10 mg tablet 5 - 10 mg PO BID PRN (Reason: muscle spasm) Qty: 20 0RF gabapentin 800 mg tablet 800 mg PO TID Qty: 90 1RF cyanocobalamin (vitamin B-12) 500 MCG tablet 500 mcg PO DAILY albuterol sulfate 1 INHALER inhaler 2 puff INHALATION Q4H PRN PRN (Reason: Sob &/Or Wheezing) cholecalciferol (vitamin D3) 5,000 UNIT tablet,disintegrating 5,000 unit PO DAILY aspirin 81 MG tablet,chewable 81 mg PO DAILY@0800 0RF turmeric root extract 500 mg capsule 1,000 mg PO BID budesonide-formoterol 160-4.5 mcg/actuation HFA aerosol inhaler 2 puff INHALATION BID coenzyme Q10 30 mg capsule 60 mg PO DAILY omeprazole 20 mg capsule,delayed release(DR/EC) 40 mg PO BID simvastatin 20 mg tablet 20 mg PO QHS Qty: 90 3RF lisinopril 10 mg tablet 10 mg PO DAILY Qty: 90 3RF montelukast 10 mg tablet 10 mg PO DAILY Qty: 90 1RF ondansetron HCl 4 mg tablet 4 mg PO Q8H PRN (Reason: Nausea) Qty: 15 0RF benzonatate 200 mg capsule 200 mg PO TID PRN (Reason: cough) Qty: 90 0RF lamotrigine 200 mg tablet 200 mg PO BID 30 Days Qty: 60 2RF prazosin 1 mg capsule 1 mg PO DAILY 30 Days Qty: 30 2RF hydroxyzine HCl 50 mg tablet 50 mg PO TID 30 Days Qty: 90 1RF Primary Care Provider: Margarita Garcia Referrals: Margarita Garcia MD [Primary Care Provider] -
[2022-04-13 00:05] VITALS: BP 154/78; PULSE 57; RESP 18; O2SAT 98
[2022-04-13] MEDS: MethylPREDNISolone 125 MG/2 ML Vial IV (00:10)
[2022-04-13] MEDS: Acetaminophen 500 MG Tablet 1000 MG PO (00:12)
[2022-04-13 00:22] LABS: Absolute Lymphocyte Count 2.26 X10^3/uL (0.83-4.51); Absolute Neutrophil Count 2.2 X10^3/uL (2.0-7.7); Eosinophil# 0.22 X10^3/uL; Eosinophils% 4.3 % (0-5); Hematocrit 30.6 % (37-47); Hemoglobin 10.3 g/dL (12.0-15.0); Lymphocyte # 2.26 X10^3/ul (0.83-4.51); Mean Corp Hgb Conc 33.7 g/dL (32-36); Mean Corpuscular Volume 92.2 fL (81-99); Mean Platelet Vol. 9.5 fl (6.2-12.0); Monocyte# 0.43 X10^3/uL; Monocyte% 8.4 % (0-10); NRBC Flagged by Analyzer 0 % (0-5); Neutrophil # 2.22 X10^3/uL (2.7-7.7); Neutrophil % 43.1 % (47-70); Platelet Count 269 K/mm3 (150-450); RBC Distribution Width CV 12.6 % (11.6-14.6); Red Blood Count 3.32 M/mm3 (4.2-5.4); White Blood Count 5.1 K/mm3 (4.4-11.0)
[2022-04-13 00:36] LABS: Anion Gap 6 (5-15); BUN 8 mg/dL (7-18); BUN/Creat Ratio 9.2 RATIO (10-20); Calcium,Total 8.7 mg/dL (8.5-10.1); Chloride 104 mmol/L (98-107); Creatinine, Serum 0.87 mg/dL (0.55-1.02); EST Glomerular Filtration Rate 71 mL/min (>60); Est Glom Filt Rate - Afr Amer 86 mL/min (>60); Estimated Creatinine Clearance 55.07 ml/min; Glucose 141 mg/dL (74-106); Potassium 3.4 mmol/L (3.5-5.1); Sodium Level 137 mmol/L (136-145)
== END 2022-04-13 00:54 | disposition home or self-care (01) ==
PROVIDERS: Emergency Provider Student in an Organized Health Care Education/Training Program; PCP Internal Medicine; Visit Provider Student in an Organized Health Care Education/Training Program
DX: R51.9 Headache, unspecified (principal); J43.9 Emphysema, unspecified; D64.9 Anemia, unspecified; I10 Essential (primary) hypertension; E78.5 Hyperlipidemia, unspecified; R11.0 Nausea; Z79.82 Long term (current) use of aspirin; Z79.899 Other long term (current) drug therapy; Z86.73 Personal history of transient ischemic attack (TIA), and cerebral infarction without residual deficits
CPT/HCPCS: 70450; 80048; 85025; 96374; 96375; 99284; J7030; A4216

== ENCOUNTER 2022-09-13 16:39 | Emergency (ER) | payer OTHER, SELFPAY ==
[2022-09-13 16:41] VITALS: BP 94/79; PULSE 64; RESP 18; TEMP 36.2; O2SAT 97; BMI 25.7
--- NOTE | 2022-09-13 18:11 | EX.ED.VIS.PS ---
HPI <ZHANNA Stephen - Last Filed: 09/13/22 21:59> HPI - Psych History of Present Illness Chief Complaint: Mental Health Narrative Narrative: Patient presenting today due to auditory hallucinations that she has had over the past few days. She reports that she has been more anxious than usual because she is watching her 7 grandchildren while her daughter is out of town. She cannot remember what any of the voices said but her reports that she will be acting as if she is having a conversation with her grandchild when her grandchild is not in the room. She reports that she also feels that somebody is touching her shoulders or standing behind her at times but then she turns around and nobody is there. This has never happened to her before. She did call her psychiatrist, Dr. Del Real to tell him what has been going on and he recommended her coming into the ED. She denies any suicidal thoughts, thoughts of self-harm, thoughts of harming others. She denies any visual hallucinations and substance use. She reports generalized weakness and dysuria over the past few days and has been drinking cranberry juice with some relief of her symptoms. She has also had a nonproductive cough over the past few days. She denies any fever, chills, abdominal pain, nausea, vomiting, shortness of breath, and chest pain. She reports a PMH of bipolar disorder, anxiety, depression. PFSH <ZHANNA Stephen - Last Filed: 09/13/22 21:59> PFSH Medical History Anemia Arthritis Asthma Back pain Bee sting reaction Bipolar depression Bipolar II disorder Chronic headache COPD (chronic obstructive pulmonary disease) CVA (cerebral vascular accident) Dermatitis, contact Difficulty swallowing solids Dizziness Emphysema lung Fibromyalgia Flu vaccine need GERD (gastroesophageal reflux disease) GI problem Hernia History of stroke Hx of migraine headaches Hyperlipidemia Hypertension Hyponatremia IBS (irritable bowel syndrome) Insomnia Low libido Lumbar radiculopathy Memory impairment OAB (overactive bladder) Orthostatic hypotension CHIQUI (obstructive sleep apnea) Overweight (BMI 25.0-29.9) Pericardial effusion (noninflammatory) right scapular mass Sciatica Screening for STD (sexually transmitted disease) Seasonal allergies Sinusitis Vaginal atrophy Home Medications albuterol sulfate 90 mcg/actuation aerosol inhaler 2 puff inhalation Q4H PRN PRN Sob &/Or Wheezing 12/26/16 [History Last Taken Unknown] cholecalciferol (vitamin D3) 125 mcg (5,000 unit) disintegrating tablet 5,000 unit PO DAILY 12/26/16 [History Last Taken Unknown] cyanocobalamin (vitamin B-12) 500 mcg tablet 500 mcg PO DAILY 12/26/16 [History Last Taken Unknown] aspirin 81 mg chewable tablet 81 mg PO DAILY@0800 12/27/16 [Rx Last Taken Unknown] diclofenac sodium 1 % topical gel 2 g topical ONCE 01/06/20 [History Last Taken Unknown] coenzyme Q10 30 mg capsule 60 mg PO DAILY 03/07/20 [History Last Taken Unknown] eluxadoline 100 mg tablet (Viberzi) 50 mg PO DAILY 03/07/20 [History Last Taken Unknown] bjyuhyjo-aldu-pmseq acid 240 mcg-vit K 120 [id number]-txvjlo-queh 293 tablet (Alive Women's 50 Plus (fruit-veg blend)) 1 tab PO DAILY 03/07/20 [History Last Taken Unknown] pyridoxine (vitamin B6) 100 mg tablet 100 mg PO DAILY 04/01/20 [History Last Taken Unknown] estradiol 0.01% (0.1 mg/gram) vaginal cream (Estrace) 1 g vaginal 2XW 05/08/21 [History Last Taken Unknown] melatonin 3 mg capsule 20 mg PO HS Sleep 05/12/21 [History Last Taken Unknown] simvastatin 20 mg tablet 20 mg PO QHS #90 tabs 10/11/21 [Rx Last Taken Unknown] hydrocortisone 2.5 % topical cream 1 applic topical BID PRN rash #30 grams 02/14/22 [Rx Last Taken Unknown] cyclobenzaprine 10 mg tablet 5 - 10 mg (0.5 - 1 x 10 mg) PO BID PRN muscle spasm #20 tabs 02/26/22 [Rx Last Taken Unknown] fluticasone 250 mcg-salmeterol 50 mcg/dose blistr powdr for inhalation (Advair Diskus) 1 inh inhalation BID 04/17/22 [History Last Taken Unknown] ondansetron 4 mg disintegrating tablet 4 mg PO Q8H PRN nausea and vomiting #30 tabs 04/17/22 [Rx Last Taken Unknown] oxybutynin chloride 15 mg tablet,extended release 24 hr 30 mg PO DAILY 04/17/22 [History Last Taken Unknown] montelukast 10 mg tablet 10 mg PO DAILY #90 tabs 05/15/22 [Rx Last Taken Unknown] lisinopril 10 mg tablet 20 mg (2 x 10 mg) PO DAILY #90 tabs 06/25/22 [Rx Last Taken Unknown] doxepin 10 mg capsule 10 mg PO QHS PRN sleep #30 caps 07/26/22 [Rx Last Taken Unknown] aripiprazole 2 mg tablet (Abilify) 2 mg PO DAILY #30 tabs 08/20/22 [Rx Last Taken Unknown] escitalopram oxalate 20 mg tablet 20 mg PO DAILY #30 tabs 08/20/22 [Rx Last Taken Unknown] lamotrigine 200 mg tablet 200 mg PO BID 30 days #60 tabs 08/20/22 [Rx Last Taken Unknown] lorazepam 1 mg tablet 1 mg PO DAILY PRN anxiety #30 tabs 08/20/22 [Rx Last Taken Unknown] prazosin 1 mg capsule 1 mg PO DAILY 30 days #30 caps 08/20/22 [Rx Last Taken Unknown] B6 0.85 mg-folic 200 [id number] oral chewable tablet (Neuriva Plus) tab PO 09/13/22 [History Last Taken Unknown] benzonatate 100 mg capsule 200 mg PO BID 09/13/22 [History Last Taken Unknown] gabapentin 800 mg tablet See Rx Instructions .Route .COMPLEX #90 tabs 09/13/22 [Rx Last Taken Unknown] hydroxyzine HCl 50 mg tablet 50 mg PO TID PRN anxiety 09/13/22 [History Last Taken Unknown] magnesium 200 mg tablet 400 mg PO QHS 09/13/22 [History Last Taken Unknown] omeprazole 40 mg capsule,delayed release 40 mg PO BID 09/13/22 [History Last Taken Unknown] rimegepant 75 mg disintegrating tablet (Nurtec ODT) 75 mg PO QODAY 09/13/22 [History Last Taken Unknown] triamcinolone acetonide 0.1 % topical cream applic topical BID PRN dry skin 09/13/22 [History Last Taken Unknown] Allergy/AdvReac Type Severity Reaction Status Date / Time bee venom protein (honey bee) Allergy Mild SWELLING/ Verified 09/13/22 16:41 SOB Family History Unknown Past medical history not known due to adoption Surgical History H/O laparoscopy History of total hysterectomy Hx of breast biopsy Social History Smoking Status: Never smoker alcohol intake: current alcohol intake frequency: 3 or more drinks per day Alcohol type: beer and hard liquor substance use type: does not use caffeine: Yes what type of physical activity do you participate in: walking frequency: 1-2 times per week seatbelt use: always do you feel safe at home: Yes additional social history: -Aashish HIGGINBOTHAM <ZHANNA Stephen - Last Filed: 09/13/22 21:59> ROS ED Constitutional Constitutional ED: Denies chills or fever(s) Eyes Eyes: Denies change in vision Cardiovascular Cardiovascular: Denies chest pain or palpitations Respiratory/Chest Respiratory/Chest: Reports cough; Denies dyspnea or dyspnea on exertion Gastrointestinal Gastrointestinal: Denies abdominal pain, nausea or vomiting Genitourinary Genitourinary ED: Reports dysuria; Denies hematuria or urinary urgency Musculoskeletal Musculoskeletal: Denies arthralgias or myalgias Integumentary Denies abscess, Abrasions or rash Neurologic Neurologic: Reports weakness; Denies confusion, dizziness or paresthesias Psychiatric Psychiatric: Reports anxiety, auditory hallucinations and tactile hallucinations; Denies homicidal ideation, suicidal ideation or suicidal thoughts EXAM <ZHANNA Stephen - Last Filed: 09/13/22 21:59> Physical Exam Const Vital Signs: 09/13/22 16:41 09/13/22 19:00 09/13/22 20:18 Temperature 97.2 F L Temperature Source Temporal Pulse Rate 64 88 65 Respiratory Rate 18 99 H 14 Respiratory Pattern Blood Pressure 94/79 118/65 127/64 H Blood Pressure Mean 84 82 85 Pulse Ox 97 97 Oxygen Delivery Method Room Air Room Air Room Air 09/13/22 22:49 09/14/22 02:22 09/14/22 03:56 Temperature Temperature Source Pulse Rate 68 70 85 Respiratory Rate 15 18 16 Respiratory Pattern Blood Pressure 116/69 136/58 H 119/64 Blood Pressure Mean 84 84 82 Pulse Ox 99 98 Oxygen Delivery Method Room Air Room Air 09/14/22 06:45 09/14/22 07:05 09/14/22 08:34 Temperature Temperature Source Pulse Rate 90 95 Respiratory Rate 16 16 16 Respiratory Pattern Normal Blood Pressure 127/59 H Blood Pressure Mean 81 Pulse Ox 95 Oxygen Delivery Method Room Air Positive well nourished, well developed and no apparent distress General Appearance ED: well developed HEENT Reports normocephalic and head/scalp atraumatic Mouth ED: Yes moist mucous membranes normal Eyes PERRL and EOMs intact bilaterally Neck full ROM and supple Chest Wall inspection of chest normal Resp normal respiratory effort and clear to auscultation bilaterally Cardio regular rate and regular rhythm GI soft to palpation, non-tender, non-distended and no masses Back/Spine normal ROM and normal to inspection Extremity normal to inspection and full ROM Neuro oriented x3, CN's II-XII intact bilaterally, moves all extremities, no focal motor deficits and no sensory deficits noted Sensorium / Orientation: awake and alert Psych mental status grossly normal, thought process normal and cooperative Appearance: grossly normal Attitude: calm Activity / Motor Behavior: appropriate eye contact Speech: normal speech Thought Process: normal thought process Thought Content: normal thought content Judgement: judgement good Skin no rashes or lesions noted and no wounds <Dr. Adore Gonzalez DO - Last Filed: 09/14/22 11:07> Physical Exam Const Vital Signs: 09/13/22 16:41 09/13/22 19:00 09/13/22 20:18 Temperature 97.2 F L Temperature Source Temporal Pulse Rate 64 88 65 Respiratory Rate 18 99 H 14 Respiratory Pattern Blood Pressure 94/79 118/65 127/64 H Blood Pressure Mean 84 82 85 Pulse Ox 97 97 Oxygen Delivery Method Room Air Room Air Room Air 09/13/22 22:49 09/14/22 02:22 09/14/22 03:56 Temperature Temperature Source Pulse Rate 68 70 85 Respiratory Rate 15 18 16 Respiratory Pattern Blood Pressure 116/69 136/58 H 119/64 Blood Pressure Mean 84 84 82 Pulse Ox 99 98 Oxygen Delivery Method Room Air Room Air 09/14/22 06:45 09/14/22 07:05 09/14/22 08:34 Temperature Temperature Source Pulse Rate 90 95 Respiratory Rate 16 16 16 Respiratory Pattern Normal Blood Pressure 127/59 H Blood Pressure Mean 81 Pulse Ox 95 Oxygen Delivery Method Room Air MDM <ZHANNA Stephen - Last Filed: 09/13/22 21:59> MDM MDM Narrative Medical decision making narrative: Patient presenting due to auditory and tactile hallucinations that she has had over the past few days. She is well-appearing and in no acute distress, vitals are unremarkable. This is never happened to her before. She does have a history of bipolar disorder, anxiety, and depression. She denies any thoughts of suicide, self-harm, or thoughts of harming others. Her psychiatrist, Dr. Cornejo encouraged her to come in for evaluation. She has had some dysuria over the past few days and a cough. Labs will be obtained to rule out leukocytosis, anemia, electrolyte abnormality, UTI. Chest x-ray will be obtained to rule out pneumonia. Urine will also be sent for urine drug screen. UA does show hematuria, she will be given urology follow-up. Patient did speak with the social work faculty member and reports that she would like to be admitted to psychiatric facility voluntarily. She has been to four in the past and she thinks that this will help her. At this time, placement is pending. Patient evaluated independently and in conjunction with physician assistant professor of art. Agree with note above unless documented otherwise. I was personally present or immediately available for all clinically relevant procedures and performed my own physical exam and review of systems. Patient is evaluated for auditory and tactile hallucinations for the past few days to weeks. Has had increased stress she has been taking care of her 7 grandchildren. Does have other help at home. Has a history of bipolar disorder and anxiety. Is a nonfocal neurologic exam. Do not think she requires head imaging. Metabolic work-up looking for an infection or other cause of her new symptoms as well as medical clearance is obtained. This is all largely normal. She does not have findings distant with UTI but does have a 0-5 red blood cells of uncertain clinical etiology in her urinalysis. Will need nonemergent outpatient urology follow-up for this as this is asymptomatic hematuria. Patient is also evaluated by social work. She would like to be voluntarily admitted to a psychiatric facility. Patient signed out to oncoming physician pending acceptance. Patient is calm and cooperative in the emergency room. If for what ever reason she decided she would like to follow-up outpatient I think that is reasonable I do not think she is a likely risk to herself or to others and is safe to go home. Lab Data Labs: Laboratory Results - last 24 hr 09/13/22 18:29 WBC 8.5 RBC 3.74 L Hgb 11.5 L Hct 33.0 L MCV 88.2 MCH 30.7 MCHC 34.8 RDW Std Deviation 37.6 RDW Coeff of Mallory 11.7 Plt Count 298 MPV 8.6 Immature Gran % (Auto) 0.400 Neut % (Auto) 65.1 Lymph % (Auto) 25.3 [place] % (Auto) 6.3 Eos % (Auto) 2.8 Baso % (Auto) 0.1 Absolute Neuts (auto) 5.6 Absolute Lymphs (auto) 2.16 Nucleated RBC % 0 Sodium 130 L Potassium 3.4 L Chloride 96 L Carbon Dioxide 27.0 Anion Gap 7 BUN 11 Creatinine 0.87 Estim Creat Clear Calc 54.39 Est GFR (MDRD) Af Amer 86 Est GFR (MDRD) Non-Af 71 BUN/Creatinine Ratio 12.7 Glucose 117 H Calcium 8.7 Total Creatine Kinase 128 Urine Color Yellow Urine Clarity Clear Urine pH 6.0 Ur Specific [place] 1.010 Urine Protein Negative Urine Glucose (UA) Normal Urine Ketones Negative Urine Occult Blood 150 H Urine Nitrite Negative Urine Bilirubin Negative Urine Urobilinogen Normal Ur Leukocyte Esterase 25 H Urine RBC 0-5 SEEN Urine WBC 0 SEEN Ur Squamous Epith Cells 0 SEEN Urine Bacteria 0 SEEN Urine Mucus 0 SEEN Urine Opiates Screen NEGATIVE Urine Methadone Screen NEGATIVE Ur Barbiturates Screen NEGATIVE Ur Phencyclidine Scrn NEGATIVE Ur Amphetamines Screen NEGATIVE MDMA (Ecstasy) Screen NEGATIVE U Benzodiazepines Scrn NEGATIVE Urine Cocaine Screen NEGATIVE U Cannabinoids Screen NEGATIVE Ur Drug Screen Comment Ethyl Alcohol < 3.0 Radiography Diagnostic Testing: Clinical Impression(s) from Imaging Studies Chest X-Ray 09/13/22 18:32 IMPRESSION: No radiographic evidence of acute cardiopulmonary disease. Electronically Signed: Ryan Dennison MD at 19:03 EDT , EKG Initial EKG: Comments: 75 bpm, normal sinus rhythm, no ST elevation, reviewed and interpreted by attending ED physician <Dr. Adore Gonzalez, DO - Last Filed: 09/14/22 11:07> MDM MDM Narrative Medical decision making narrative: Patient presenting due to auditory and tactile hallucinations that she has had over the past few days. She is well-appearing and in no acute distress, vitals are unremarkable. This is never happened to her before. She does have a history of bipolar disorder, anxiety, and depression. She denies any thoughts of suicide, self-harm, or thoughts of harming others. Her psychiatrist, Dr. Cornejo encouraged her to come in for evaluation. She has had some dysuria over the past few days and a cough. Labs will be obtained to rule out leukocytosis, anemia, electrolyte abnormality, UTI. Chest x-ray will be obtained to rule out pneumonia. Urine will also be sent for urine drug screen. Patient evaluated independently and in conjunction with physician assistant professor of art. Agree with note above unless documented otherwise. I was personally present or immediately available for all clinically relevant procedures and performed my own physical exam and review of systems. Patient is evaluated for auditory and tactile hallucinations for the past few days to weeks. Has had increased stress she has been taking care of her 7 grandchildren. Does have other help at home. Has a history of bipolar disorder and anxiety. Is a nonfocal neurologic exam. Do not think she requires head imaging. Metabolic work-up looking for an infection or other cause of her new symptoms as well as medical clearance is obtained. This is all largely normal. She does not have findings distant with UTI but does have a 0-5 red blood cells of uncertain clinical etiology in her urinalysis. Will need nonemergent outpatient urology follow-up for this as this is asymptomatic hematuria. Patient is also evaluated by social work. She would like to be voluntarily admitted to a psychiatric facility. Patient signed out to oncoming physician pending acceptance. Patient is calm and cooperative in the emergency room. If for what ever reason she decided she would like to follow-up outpatient I think that is reasonable I do not think she is a likely risk to herself or to others and is safe to go home. Lab Data Attestation: I reviewed the patient's lab results. Labs: Laboratory Results - last 24 hr 09/13/22 18:29 WBC 8.5 RBC 3.74 L Hgb 11.5 L Hct 33.0 L MCV 88.2 MCH 30.7 MCHC 34.8 RDW Std Deviation 37.6 RDW Coeff of Mallory 11.7 Plt Count 298 MPV 8.6 Immature Gran % (Auto) 0.400 Neut % (Auto) 65.1 Lymph % (Auto) 25.3 [place] % (Auto) 6.3 Eos % (Auto) 2.8 Baso % (Auto) 0.1 Absolute Neuts (auto) 5.6 Absolute Lymphs (auto) 2.16 Nucleated RBC % 0 Sodium 130 L Potassium 3.4 L Chloride 96 L Carbon Dioxide 27.0 Anion Gap 7 BUN 11 Creatinine 0.87 Estim Creat Clear Calc 54.39 Est GFR (MDRD) Af Amer 86 Est GFR (MDRD) Non-Af 71 BUN/Creatinine Ratio 12.7 Glucose 117 H Calcium 8.7 Total Creatine Kinase 128 Urine Color Yellow Urine Clarity Clear Urine pH 6.0 Ur Specific [place] 1.010 Urine Protein Negative Urine Glucose (UA) Normal Urine Ketones Negative Urine Occult Blood 150 H Urine Nitrite Negative Urine Bilirubin Negative Urine Urobilinogen Normal Ur Leukocyte Esterase 25 H Urine RBC 0-5 SEEN Urine WBC 0 SEEN Ur Squamous Epith Cells 0 SEEN Urine Bacteria 0 SEEN Urine Mucus 0 SEEN Urine Opiates Screen NEGATIVE Urine Methadone Screen NEGATIVE Ur Barbiturates Screen NEGATIVE Ur Phencyclidine Scrn NEGATIVE Ur Amphetamines Screen NEGATIVE MDMA (Ecstasy) Screen NEGATIVE U Benzodiazepines Scrn NEGATIVE Urine Cocaine Screen NEGATIVE U Cannabinoids Screen NEGATIVE Ur Drug Screen Comment Ethyl Alcohol < 3.0 Radiography Diagnostic Testing: Clinical Impression(s) from Imaging Studies Chest X-Ray 09/13/22 18:32 IMPRESSION: No radiographic evidence of acute cardiopulmonary disease. Electronically Signed: Ryan Dennison MD at 19:03 EDT , Discharge Plan Triage Chief Complaint: Mental Health ED Midlevel Provider: Kristel Kearney ED Provider: Adore Gonzalez Dx/Rx/DC Orders Clinical Impression: Auditory hallucination, Tactile hallucination, Painless hematuria Prescriptions: No Action diclofenac sodium 1 % gel 2 g TOPICAL ONCE Rx Instructions: apply to single elbow, wrist or hand; for hand includes palm/fingers/back of hand melatonin 3 mg capsule 20 mg PO HS Rx Instructions: taking 20 mg QHS Alive Women's 50 Plus (blend) 240-120-300 mcg tablet 1 tab PO DAILY Viberzi 100 mg tablet 50 mg PO DAILY Rx Instructions: must administer with a meal/food pyridoxine (vitamin B6) 100 mg tablet 100 mg PO DAILY oxybutynin chloride 15 mg tablet extended release 24hr 30 mg PO DAILY estradiol [Estrace] 0.01 % (0.1 mg/gram) cream 1 g vaginal 2XW hydrocortisone 2.5 % cream 1 applic topical BID PRN (Reason: rash) Qty: 30 2RF cyclobenzaprine 10 mg tablet 5 - 10 mg PO BID PRN (Reason: muscle spasm) Qty: 20 0RF fluticasone propion-salmeterol [Advair Diskus] 250-50 mcg/dose blister with device 1 inh inhalation BID ondansetron 4 mg tablet,disintegrating 4 mg PO Q8H PRN (Reason: nausea and vomiting) Qty: 30 0RF lorazepam 1 mg tablet 1 mg PO DAILY PRN (Reason: anxiety) Qty: 30 0RF aripiprazole [Abilify] 2 mg tablet 2 mg PO DAILY Qty: 30 2RF prazosin 1 mg capsule 1 mg PO DAILY 30 Days Qty: 30 2RF lamotrigine 200 mg tablet 200 mg PO BID 30 Days Qty: 60 2RF escitalopram oxalate 20 mg tablet 20 mg PO DAILY Qty: 30 2RF cyanocobalamin (vitamin B-12) 500 MCG tablet 500 mcg PO DAILY albuterol sulfate 1 INHALER inhaler 2 puff INHALATION Q4H PRN PRN (Reason: Sob &/Or Wheezing) cholecalciferol (vitamin D3) 5,000 UNIT tablet,disintegrating 5,000 unit PO DAILY aspirin 81 MG tablet,chewable 81 mg PO DAILY@0800 0RF coenzyme Q10 30 mg capsule 60 mg PO DAILY omeprazole 40 mg capsule,delayed release(DR/EC) 40 mg PO BID Patient Comments: TAKE 1 CAPSULE BY MOUTH before BREAKFAST and supper hydroxyzine HCl 50 mg tablet 50 mg PO TID PRN (Reason: anxiety) Patient Comments: TAKE 1 TABLET BY MOUTH THREE TIMES DAILY FOR ANXIETY Neuriva Plus 0.85 mg-200 mcg-1.2 mcg tablet,chewable PO magnesium 200 mg tablet 400 mg PO QHS Nurtec ODT 75 mg tablet,disintegrating 75 mg PO QODAY benzonatate 100 mg capsule 200 mg PO BID Patient Comments: Take 2 capsules by mouth three times daily as needed. triamcinolone acetonide 0.1 % cream TOPICAL BID PRN (Reason: dry skin) Patient Comments: Apply a thin layer to the affected areas of the body twice a day for up to two weeks, taking a week off before resuming for flare ups. simvastatin 20 mg tablet 20 mg PO QHS Qty: 90 3RF montelukast 10 mg tablet 10 mg PO DAILY Qty: 90 1RF lisinopril 10 mg tablet 20 mg PO DAILY Qty: 90 1RF doxepin 10 mg capsule 10 mg PO QHS PRN (Reason: sleep) Qty: 30 2RF gabapentin 800 mg tablet See Rx Instructions .ROUTE .COMPLEX Qty: 90 1RF Dose Instruction: TAKE 1 TABLET BY MOUTH THREE TIMES DAILY Rx Instructions: TAKE 1 TABLET BY MOUTH THREE TIMES DAILY Primary Care Provider: Margarita Garcia Referrals: Margarita Garcia MD [Primary Care Provider] - Traci Motley MD [Med Staff - Active Staff] - 1 Week Disposition Disposition: Psychiatric Hospital or Unit Discharge Location: [facility] Discharge Date/Time: 09/14/22 08:00
--- NOTE | 2022-09-13 18:32 | RAD_ITS ---
EXAM: XR CHEST, 2 VIEWS CLINICAL INDICATION: cough TECHNIQUE: Frontal and lateral views of the chest. COMPARISON: 11/03/2020 FINDINGS: LUNGS AND PLEURAL SPACES: Unremarkable. No consolidation or edema. No pneumothorax. No effusion. HEART: Unremarkable. Cardiac silhouette not enlarged. MEDIASTINUM: Central airways and mediastinal contour are unremarkable. BONES/JOINTS: Unremarkable. SOFT TISSUES: Unremarkable. RAD/Chest PA and Lateral IMPRESSION: No radiographic evidence of acute cardiopulmonary disease. Electronically Signed: Ryan Dennison MD at 19:03 EDT ,
[2022-09-13 18:43] LABS: Bacteria 0 SEEN /hpf (None Seen); Mucous, Urine 0 SEEN /hpf (<or=2+); Squamous Epithelial Cells - UA 0 SEEN /hpf (5-10); White Blood Cells 0 SEEN /hpf (0-5)
[2022-09-13 18:48] LABS: Absolute Lymphocyte Count 2.16 X10^3/uL (0.83-4.51); Absolute Neutrophil Count 5.6 X10^3/uL (2.0-7.7); Basophil# 0.01 X10^3/uL; Basophil% 0.1 % (0-1); Eosinophil# 0.24 X10^3/uL; Eosinophils% 2.8 % (0-5); Hemoglobin 11.5 g/dL (12.0-15.0); Lymphocyte # 2.16 X10^3/ul (0.83-4.51); Lymphocyte % 25.3 % (19-41); Mean Corp Hgb Conc 34.8 g/dL (32-36); Mean Corpuscular Hgb 30.7 pg (27.0-32.0); Mean Corpuscular Volume 88.2 fL (81-99); Mean Platelet Vol. 8.6 fl (6.2-12.0); Monocyte# 0.54 X10^3/uL; Monocyte% 6.3 % (0-10); NRBC Flagged by Analyzer 0 % (0-5); Neutrophil # 5.56 X10^3/uL (2.7-7.7); Neutrophil % 65.1 % (47-70); Platelet Count 298 K/mm3 (150-450); RBC Distribution Width CV 11.7 % (11.6-14.6); RBC Distribution Width SD 37.6 fl (35.1-43.9); Red Blood Count 3.74 M/mm3 (4.2-5.4); White Blood Count 8.5 K/mm3 (4.4-11.0)
[2022-09-13 18:52] LABS: Color, Urine Yellow (Yellow); Glucose, Dipstick Normal (Normal); Ketone-Dipstick Negative (Negative); Leukocyte Esterase-Dipstick 25 /ul (Negative); Nitrite-Dipstick Negative (Negative); Occult Blood-Urine 150 /ul (Negative); Protein-Dipstick Negative (Negative); Urine Bilirubin Dipstick Negative (Negative); Urine Clarity Clear (Clear); Urine Urobilinogen Normal (Normal)
[2022-09-13 19:00] VITALS: BP 118/65; PULSE 88; RESP 99
[2022-09-13 19:06] LABS: Alcohol, Blood (Medical)-Serum < 3.0 mg/dL
[2022-09-13 19:09] LABS: Anion Gap 7 (5-15); BUN 11 mg/dL (7-18); BUN/Creat Ratio 12.7 RATIO (10-20); Calcium,Total 8.7 mg/dL (8.5-10.1); Chloride 96 mmol/L (98-107); Creatinine, Serum 0.87 mg/dL (0.55-1.02); EST Glomerular Filtration Rate 71 mL/min (>60); Est Glom Filt Rate - Afr Amer 86 mL/min (>60); Estimated Creatinine Clearance 54.39 ml/min; Glucose 117 mg/dL (74-106); Potassium 3.4 mmol/L (3.5-5.1); Sodium Level 130 mmol/L (136-145)
[2022-09-13 19:11] LABS: Amphetamine Urine VISTA NEGATIVE (<1000 ng/mL); Barbiturate Urine VISTA NEGATIVE (< 200 ng/mL); Benzodiazepine Urine VISTA NEGATIVE (< 200 ng/mL); Cocaine Urine VISTA NEGATIVE (< 300 ng/mL); Ecstacy Urine VISTA NEGATIVE (< 500 ng/mL); Methadone Urine VISTA NEGATIVE (< 300 ng/mL); PCP Urine VISTA NEGATIVE (< 25 ng/mL); THC Urine VISTA NEGATIVE (< 50 ng/mL); Vista UDS pH Range 6
[2022-09-13 19:45] LABS: Red Blood Cells-Urine 0-5 SEEN /hpf (0-5)
--- NOTE | 2022-09-13 20:14 | EKG12_ITS ---
Test Reason : DYSRHYTHMIA Blood Pressure : / mmHG Vent. Rate : 075 BPM Atrial Rate : 075 BPM P-R Int : 154 ms QRS Dur : 084 ms QT Int : 402 ms P-R-T Axes : 036 023 029 degrees QTc Int : 448 ms Normal sinus rhythm Normal ECG Confirmed by SPRING LOZANO, STEVENSON ([id number]), supervising editor news reel TIA RUBY [id number]) on 09/14/2022 10:00:29 AM Referred By: KATE Confirmed By:STEVENSON LONDONO MD
[2022-09-13 20:18] VITALS: BP 127/64; PULSE 65; RESP 14; O2SAT 97
[2022-09-13 20:26] LABS: CPK Total, Creatine Kinase 128 U/L (26-192)
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
--- NOTE | 2022-09-13 21:23 | CM.ED ---
Addendum entered by Jessika Wren 09/13/22 22:16: Patient was declined by [facility] due to being out of network. [facility] contacted requesting a copy of patient's insurance card. SW faxed card. Patient and patient's updated on referrals. Plan: pending [facility] Original Note: Social Work SW faxed referrals to [facility] and [facility] as both facilities have bed availability. Plan: referrals pending for psych placement [facility]
[2022-09-13 22:49] VITALS: BP 116/69; PULSE 68; RESP 15; O2SAT 99
[2022-09-14 02:22] VITALS: BP 136/58; PULSE 70; RESP 18
[2022-09-14 03:56] VITALS: BP 119/64; PULSE 85; RESP 16; O2SAT 98
--- NOTE | 2022-09-14 05:44 | ED.RN ---
attempt to call reportx3,unable to reach anybody.
--- NOTE | 2022-09-14 06:28 | ED.RN ---
attmpt to give report and the staff instructed to call back since they were not aware that they were even getting a pt. did attempt to call [facility] 20 minutes later and the phone rang multiple times and no answer.
[2022-09-14] MEDS: Budesonide Respules 0.5 MG/2 ML AMPUL.NEB. INHALATION (06:42)
[2022-09-14] MEDS: Albuterol 2.5 MG/3 ML VIAL.NEB. INHALATION (06:42)
[2022-09-14 06:45] VITALS: PULSE 90; RESP 16
[2022-09-14] MEDS: Gabapentin 800 MG Tablet PO (06:53)
[2022-09-14] MEDS: Ibuprofen 200 MG Tablet 400 MG PO (06:53)
[2022-09-14] MEDS: Tolterodine Tartrate 4 MG CAP.SA PO (06:54)
[2022-09-14] MEDS: Cholecalciferol (Vit D3) 125 MCG CAPSULE (5,000 UNITS) PO (06:54)
[2022-09-14] MEDS: ARIPiprazole 2 MG Tablet PO (06:55)
[2022-09-14] MEDS: Escitalopram Oxalate 20 MG Tablet PO (06:55)
[2022-09-14] MEDS: Cyanocobalamin 500 MCG Tablet PO (06:55)
[2022-09-14] MEDS: Lisinopril 20 MG Tablet PO (06:56)
[2022-09-14] MEDS: lamoTRIgine 100 MG Tablet 200 MG PO (06:56)
[2022-09-14] MEDS: Montelukast 10 MG Tablet PO (06:56)
[2022-09-14] MEDS: Pyridoxine HCl 100 MG Tablet PO (06:57)
[2022-09-14] MEDS: Multivitamins,Ther W-Minerals Tablet 1 TABLET PO (06:57)
[2022-09-14] MEDS: Aspirin 81 MG TAB.CHEW PO (06:59)
[2022-09-14 07:05] VITALS: BP 127/59; PULSE 95; RESP 16; O2SAT 95
[2022-09-14 08:34] VITALS: RESP 16
== END 2022-09-14 08:00 ==
PROVIDERS: Physician Assistant; Emergency Provider Emergency Medicine; PCP Internal Medicine; Visit Provider Emergency Medicine
DX: R44.0 Auditory hallucinations (principal); J44.9 Chronic obstructive pulmonary disease, unspecified; F31.81 Bipolar II disorder; F41.9 Anxiety disorder, unspecified; R31.9 Hematuria, unspecified; E78.5 Hyperlipidemia, unspecified; I10 Essential (primary) hypertension; Z79.899 Other long term (current) drug therapy; Z79.82 Long term (current) use of aspirin; K58.9 Irritable bowel syndrome, unspecified; K21.9 Gastro-esophageal reflux disease without esophagitis; Z90.710 Acquired absence of both cervix and uterus; R44.2 Other hallucinations
CPT/HCPCS: 71046; 80048; 80307; 81001; 82077; 82550; 85025; 87811; 93005; 94640; 99285

== ENCOUNTER 2023-02-06 19:09 | Inpatient (IN) | payer OTHER, SELFPAY ==
[2023-02-06 19:10] VITALS: BP 163/85; PULSE 80; RESP 18; TEMP 36.4; O2SAT 98; BMI 30.3
--- NOTE | 2023-02-06 19:36 | EX.ED.SAOD ---
HPI History of Present Illness Chief Complaint: Substance Abuse Detail of Chief Complaint: ID detox from alcohol Informant: patient and spouse/S.O. Onset/Context/Timing Onset: - (Patient been drinking alcohol for greater than 25 years) Timing: Continuous Quality: 6-8 fireball's with beer. Location: Presents from home with her Current Severity: Patient is clinically intoxicated. Maximum Severity: Patient's last drink was 20 minutes prior to arrival Worsened by: Nothing Relieved by: Nothing Associated Symptoms Associated Symptoms: Positive for tremor (If she decreases or stops drinking); Negative for vomiting*, diarrhea*, fever*, rash*, seizure, palpatations, change in mental status, trauma, sex for drugs*, no, suicidal ideation, homicidal ideation or *HIV Risk Factors:Consider testing if last test > 6 months Narrative Narrative: Patient is 62-year-old woman who asked her to bring her to the hospital for alcohol detox. She has never been a detox program. Her last drink was 20 minutes ago. She had a fireball. She apparently drinks beer with her fireball. She denies headache, visual, ocular auditory symptoms. She denies cardiac respiratory symptoms. Denies abdominal pain, nausea, vomit or diarrhea. Denies black or maroon-colored stool. She denies myalgias, arthralgias. She denies motor weakness. She presently is having trouble ambulating. She also has a walking cast on for bunion surgery right foot. Per review of old records she has history of CVA, depression, hyperlipidemia, hypertension and noninflammatory fusion. There is also history of COPD. Prior similar symptoms: No Recent Illness/Hospitalization: No PFSH PFS Medical History Anemia Arthritis Asthma Back pain Bee sting reaction Bipolar depression Bipolar II disorder Chronic headache COPD (chronic obstructive pulmonary disease) CVA (cerebral vascular accident) Dermatitis, contact Difficulty swallowing solids Dizziness Emphysema lung Fibromyalgia Flu vaccine need GERD (gastroesophageal reflux disease) GI problem Hernia History of stroke Hx of migraine headaches Hyperlipidemia Hypertension Hyponatremia IBS (irritable bowel syndrome) Insomnia Low libido Lumbar radiculopathy Memory impairment OAB (overactive bladder) Orthostatic hypotension CHIQUI (obstructive sleep apnea) Overweight (BMI 25.0-29.9) Pericardial effusion (noninflammatory) right scapular mass Sciatica Screening for STD (sexually transmitted disease) Seasonal allergies Sinusitis Vaginal atrophy Home Medications albuterol sulfate 90 mcg/actuation aerosol inhaler 2 puff inhalation Q4H PRN PRN Sob &/Or Wheezing 12/26/16 [History Last Taken Unknown] cholecalciferol (vitamin D3) 125 mcg (5,000 unit) disintegrating tablet 5,000 unit PO DAILY 12/26/16 [History Last Taken Unknown] cyanocobalamin (vitamin B-12) 500 mcg tablet 500 mcg PO DAILY 12/26/16 [History Last Taken Unknown] aspirin 81 mg chewable tablet 81 mg PO DAILY@0800 12/27/16 [Rx Last Taken Unknown] diclofenac sodium 1 % topical gel 2 g topical ONCE 01/06/20 [History Last Taken Unknown] coenzyme Q10 30 mg capsule 60 mg PO DAILY 03/07/20 [History Last Taken Unknown] eluxadoline 100 mg tablet (Viberzi) 50 mg PO DAILY 03/07/20 [History Last Taken Unknown] lklirayf-lequ-qtvsr acid 240 mcg-vit K 120 bsr-jyhtbo-xomh 293 tablet (Alive Women's 50 Plus (fruit-veg blend)) 1 tab PO DAILY 03/07/20 [History Last Taken Unknown] pyridoxine (vitamin B6) 100 mg tablet 100 mg PO DAILY 04/01/20 [History Last Taken Unknown] estradiol 0.01% (0.1 mg/gram) vaginal cream (Estrace) 1 g vaginal 2XW 05/08/21 [History Last Taken Unknown] fluticasone 250 mcg-salmeterol 50 mcg/dose blistr powdr for inhalation (Advair Diskus) 1 inh inhalation BID 04/17/22 [History Last Taken Unknown] ondansetron 4 mg disintegrating tablet 4 mg PO Q8H PRN nausea and vomiting #30 tabs 04/17/22 [Rx Last Taken Unknown] oxybutynin chloride 15 mg tablet,extended release 24 hr 30 mg PO DAILY 04/17/22 [History Last Taken Unknown] B6 0.85 mg-folic 200 [id number]-kaxjag-jnyczhxveumw oral chewable tablet (Neuriva Plus) tab PO 09/13/22 [History Last Taken Unknown] magnesium 200 mg tablet 400 mg PO QHS 09/13/22 [History Last Taken Unknown] omeprazole 40 mg capsule,delayed release 40 mg PO BID 09/13/22 [History Last Taken Unknown] rimegepant 75 mg disintegrating tablet (Nurtec ODT) 75 mg PO QODAY 09/13/22 [History Last Taken Unknown] triamcinolone acetonide 0.1 % topical cream applic topical BID PRN dry skin 09/13/22 [History Last Taken Unknown] prazosin 1 mg capsule (Minipress) 1 mg PO QHS 10/02/22 [History Last Taken Unknown] lisinopril 20 mg tablet 20 mg PO DAILY #90 tabs 10/05/22 [Rx Last Taken Unknown] olanzapine 10 mg tablet 10 mg PO QHS #30 tabs 10/23/22 [Rx Last Taken Unknown] hydroxyzine HCl 50 mg tablet 50 mg PO .QID PRN anxiety 30 days #120 tabs 11/08/22 [Rx Last Taken Unknown] simvastatin 20 mg tablet 20 mg PO QHS #90 tabs 11/08/22 [Rx Last Taken Unknown] cyclobenzaprine 10 mg tablet 5 - 10 mg (0.5 - 1 x 10 mg) PO BID PRN muscle spasm #20 tabs 11/28/22 [Rx Last Taken Unknown] oxycodone-acetaminophen 5 mg-325 mg tablet 1 tab PO TID PRN pain (scale score 4-6) 12/12/22 [History Last Taken Unknown] gabapentin 800 mg tablet See Rx Instructions .Route .COMPLEX #30 tabs 01/29/23 [Rx Last Taken Unknown] montelukast 10 mg tablet 10 mg PO DAILY #60 tabs 01/29/23 [Rx Last Taken Unknown] doxepin 10 mg capsule See Rx Instructions .Route .COMPLEX #30 caps 01/31/23 [Rx Last Taken Unknown] escitalopram oxalate 20 mg tablet 20 mg PO DAILY #30 tabs 01/31/23 [Rx Last Taken Unknown] lamotrigine 200 mg tablet 200 mg PO BID 30 days #60 tabs 01/31/23 [Rx Last Taken Unknown] prazosin 1 mg capsule 1 mg PO DAILY 30 days #30 caps 01/31/23 [Rx Last Taken Unknown] Allergy/AdvReac Type Severity Reaction Status Date / Time bee venom protein (honey bee) Allergy Mild SWELLING/ Verified 02/06/23 19:12 SOB Family History Unknown Past medical history not known due to adoption Surgical History H/O laparoscopy History of total hysterectomy Hx of breast biopsy Social History (Updated 02/06/23 @ 19:[address] Iraj Bateman MD) household members: spouse Smoking Status: Never smoker alcohol intake: current alcohol intake frequency: 3 or more drinks per day Alcohol type: beer and hard liquor substance use type: does not use caffeine: Yes what type of physical activity do you participate in: walking frequency: 1-2 times per week seatbelt use: always do you feel safe at home: Yes additional social history: -Aashish ROS ROS ED Constitutional Constitutional ED: Denies chills, fever(s), subjective, sweats or weight loss Eyes Eyes: Denies blurry vision, change in vision or diplopia ENT ENT ED: Denies ear pain, rhinorrhea or sore throat Cardiovascular Cardiovascular: Denies chest pain or palpitations Respiratory/Chest Respiratory/Chest: Denies cough, dyspnea or dyspnea on exertion Gastrointestinal Gastrointestinal: Denies abdominal pain, diarrhea, melena, nausea or vomiting Musculoskeletal Musculoskeletal: Denies arthralgias or myalgias Integumentary Denies rash Neurologic Neurologic: Denies headache(s), paresthesias or weakness Psychiatric Psychiatric: Reports anxiety; Denies suicidal ideation Hematologic/Lymphatic Hematologic/Lymphatic: Denies easy bleeding or easy bruising EXAM Physical Exam Const Vital Signs: 02/06/23 19:10 Temperature 97.6 F L Temperature Source Temporal Pulse Rate 80 Respiratory Rate 18 Blood Pressure 163/85 H Blood Pressure Mean 111 Pulse Ox 98 Oxygen Delivery Method Room Air Positive well nourished, well developed and obese Constitutional Narrative: Clinically patient is intoxicated. She is slurring her words. She does have nystagmus with lateral gaze. General Appearance ED: well developed and NAD; Negative for pallor Nutritional Appearance: obese HEENT Reports moist mucous membranes HEENT Narrative: Ears normal. Nares patent. Pharynx is normal. atraumatic Eyes PERRL and EOMs intact bilaterally General Eye ED: Negative for pale conjunctiva or scleral icterus Neck no lymphadenopathy and supple Lymph Lymphatic: no lymphadenopathy noted Chest Wall inspection of chest normal and palpation of chest normal Resp normal respiratory effort and clear to auscultation bilaterally Cardio regular rate, regular rhythm, S1 normal heart sound, S2 normal heart sound and no murmurs GI soft to palpation, non-tender, non-distended and no masses GI Narrative: Abdomen is soft. Auscultation: hyperactive bowel sounds Back/Spine no CVA tenderness Extremity General Extremety ED: Negative for edema or tenderness General Extremity: Negative for edema Neuro oriented x3, CN's II-XII intact bilaterally and no sensory deficits noted Stonewall Coma Scale: document GCS findings Spontaneous Obeys Commands Oriented 15 Sensorium / Orientation: Negative for alert Speech: Negative for speech normal Gait (Neuro): Negative for normal gait Sensory Exam: No sensory level loss detected Motor Exam: strength 5/5 throughout Psych Mood & Affect: anxious Skin General Skin Exam: Negative for jaundice, pallor or scars Lesions: no lesions Rashes: no rashes MDM MDM MDM Narrative Medical decision making narrative: Patient is an alcoholic with alcohol dependency. Clinically she is intoxicated. ED addiction order set was initiated. Prior labs and records were reviewed. Patient has multiple medical problems. Patient's case was discussed with Dr. Mendoza Smith who admit to [facility]. Lab Data Attestation: I reviewed the patient's lab results. Lab results narrative: Patient has hyponatremia with a sodium of 129. CO2 anion gap is normal. The remainder of the comprehensive metabolic panel is unremarkable. Urine tox is negative. Alcohol is 66. Labs: Laboratory Results - last 24 hr 02/06/23 19:45 Sodium 129 L Potassium 3.6 Chloride 97 L Carbon Dioxide 22.0 Anion Gap 10 BUN 11 Creatinine 0.77 Estim Creat Clear Calc 61.45 Est GFR (MDRD) Af Amer 98 Est GFR (MDRD) Non-Af 81 BUN/Creatinine Ratio 14.2 Glucose 100 Calcium 8.5 Total Bilirubin 0.30 AST 14 L ALT 17 Alkaline Phosphatase 141 H Total Protein 6.8 Albumin 3.5 Globulin 3.3 Albumin/Globulin Ratio 1.1 Urine Opiates Screen NEGATIVE Urine Methadone Screen NEGATIVE Ur Barbiturates Screen NEGATIVE Ur Phencyclidine Scrn NEGATIVE Ur Amphetamines Screen NEGATIVE MDMA (Ecstasy) Screen NEGATIVE U Benzodiazepines Scrn NEGATIVE Urine Cocaine Screen NEGATIVE U Cannabinoids Screen NEGATIVE Ur Drug Screen Comment Ethyl Alcohol 66.0 Discharge Plan Dx/Rx/DC Orders Clinical Impression: Acute alcohol intoxication with alcoholism, CHIQUI (obstructive sleep apnea), Anxiety, Fibromyalgia, Chronic pain, Hyperlipidemia, Hypertension Disposition Disposition: Acute Care Hospital [facility]
[2023-02-06 20:14] LABS: ALB/GLOB Ratio 1.1 RATIO (0.9-2.4); AST(SGOT) 14 U/L (15-37); Alanine Aminotransfer ALT/SGPT 17 U/L (13-56); Albumin, Serum 3.5 g/dL (3.2-5.0); Alkaline Phosphatase 141 U/L (45-117); Anion Gap 10 (5-15); BUN 11 mg/dL (7-18); BUN/Creat Ratio 14.2 RATIO (10-20); Calcium,Total 8.5 mg/dL (8.5-10.1); Chloride 97 mmol/L (98-107); Creatinine, Serum 0.77 mg/dL (0.55-1.02); EST Glomerular Filtration Rate 81 mL/min (>60); Est Glom Filt Rate - Afr Amer 98 mL/min (>60); Estimated Creatinine Clearance 61.45 ml/min; Globulin 3.3 g/dL (2.2-4.2); Glucose 100 mg/dL (74-106); Potassium 3.6 mmol/L (3.5-5.1); Protein, Total 6.8 g/dL (6.4-8.2); Sodium Level 129 mmol/L (136-145)
[2023-02-06 20:25] LABS: Amphetamine Urine VISTA NEGATIVE (<1000 ng/mL); Barbiturate Urine VISTA NEGATIVE (< 200 ng/mL); Benzodiazepine Urine VISTA NEGATIVE (< 200 ng/mL); Cocaine Urine VISTA NEGATIVE (< 300 ng/mL); Ecstacy Urine VISTA NEGATIVE (< 500 ng/mL); Methadone Urine VISTA NEGATIVE (< 300 ng/mL); PCP Urine VISTA NEGATIVE (< 25 ng/mL); THC Urine VISTA NEGATIVE (< 50 ng/mL); Vista UDS pH Range 5
--- NOTE | 2023-02-06 20:27 | HP.PCM.HOS_ITS ---
HPI - General General Date of Admission: 02/06/23 Date of Service: 02/06/23 Chief Complaint: Alcohol abuse HPI Narrative CONNIE GREENBERG, is a 62 F who presented to [facility] ED on 02/06/2023 requesting alcohol detoxification. Patient seen at bedside in the ED, present. Patient was sitting up in bed, appeared comfortable, no acute distress. Patient appeared mildly altered, likely due to alcohol intoxication. Was otherwise answering most questions appropriately, assisted with providing history. Patient has been a daily alcohol drinker for the last 20 to 30 years. Has never gone through alcohol detoxification. Drinks at least 6 beers plus shots of fireball each day. States she drinks the beer and shot of fireball at the same time. Keeps alcohol at her bedside and will drink overnight because she has alcohol withdrawal symptoms if she goes more than a few hours without drinking. Last drink was about 30 minutes prior to arrival to the ED. Patient states she wants to go through detoxification because she has been drinking for too long, she is now in her 60s and wants to be done with drinking. Patient was unsure if she was taking her home indications as prescribed, but notes that he helps her with her medications and she has been taking them appropriately. Patient has history of bipolar 2 disorder, follows regularly with psychiatry in the office. states that her psychiatric symptoms have been fairly well-controlled recently. Patient otherwise denies any fevers or chills, chest pain, shortness of breath, lightheadedness or dizziness, abdominal pain or discomfort. No other acute concerns. [facility]LY [facility] Medical History Anemia Arthritis Asthma Back pain Bee sting reaction Bipolar depression Bipolar II disorder Chronic headache COPD (chronic obstructive pulmonary disease) CVA (cerebral vascular accident) Dermatitis, contact Difficulty swallowing solids Dizziness Emphysema lung Fibromyalgia Flu vaccine need GERD (gastroesophageal reflux disease) GI problem Hernia History of stroke Hx of migraine headaches Hyperlipidemia Hypertension Hyponatremia IBS (irritable bowel syndrome) Insomnia Low libido Lumbar radiculopathy Memory impairment OAB (overactive bladder) Orthostatic hypotension CHIQUI (obstructive sleep apnea) Overweight (BMI 25.0-29.9) Pericardial effusion (noninflammatory) right scapular mass Sciatica Screening for STD (sexually transmitted disease) Seasonal allergies Sinusitis Vaginal atrophy Home Medications albuterol sulfate 90 mcg/actuation aerosol inhaler 2 puff inhalation Q4H PRN PRN Sob &/Or Wheezing 12/26/16 [History Last Taken Unknown] cholecalciferol (vitamin D3) 125 mcg (5,000 unit) disintegrating tablet 5,000 unit PO DAILY vitamin 12/26/16 [History Last Taken Unknown] cyanocobalamin (vitamin B-12) 500 mcg tablet 500 mcg PO DAILY vitamin 12/26/16 [History Last Taken Unknown] aspirin 81 mg chewable tablet 81 mg PO DAILY@0800 blood thinner 12/27/16 [Rx Last Taken Unknown] diclofenac sodium 1 % topical gel 2 g topical ONCE itch 01/06/20 [History Last Taken Unknown] coenzyme Q10 30 mg capsule 60 mg PO DAILY vitamin 03/07/20 [History Last Taken Unknown] eluxadoline 100 mg tablet (Viberzi) 50 mg PO DAILY ibs 03/07/20 [History Last Taken Unknown] bpfjoaev-mrzc-kbsjr acid 240 mcg-vit K 120 nyx-xrvrkz-jekr 293 tablet (Alive Women's 50 Plus (fruit-veg blend)) 1 tab PO DAILY vitamin 03/07/20 [History Last Taken Unknown] pyridoxine (vitamin B6) 100 mg tablet 100 mg PO DAILY vitamin 04/01/20 [History Last Taken Unknown] estradiol 0.01% (0.1 mg/gram) vaginal cream (Estrace) 1 g vaginal 2XW hormone 05/08/21 [History Last Taken Unknown] fluticasone 250 mcg-salmeterol 50 mcg/dose blistr powdr for inhalation (Advair Diskus) 1 inh inhalation BID sob 04/17/22 [History Last Taken Unknown] ondansetron 4 mg disintegrating tablet 4 mg PO Q8H PRN nausea and vomiting #30 tabs 04/17/22 [Rx Last Taken Unknown] oxybutynin chloride 15 mg tablet,extended release 24 hr 30 mg PO DAILY bladder 04/17/22 [History Last Taken Unknown] B6 0.85 mg-folic 200 [id number]-nygtvw-zvqpqxsoufkk oral chewable tablet (Neuriva Plus) tab PO DAILY vitamin 09/13/22 [History Last Taken Unknown] magnesium 200 mg tablet 400 mg PO QHS vitamin 09/13/22 [History Last Taken Unknown] omeprazole 40 mg capsule,delayed release 40 mg PO BID stomach 09/13/22 [History Last Taken Unknown] rimegepant 75 mg disintegrating tablet (Nurtec ODT) 75 mg PO QODAY mckinney 09/13/22 [History Last Taken Unknown] prazosin 1 mg capsule (Minipress) 1 mg PO QHS htn 10/02/22 [History Last Taken Unknown] lisinopril 20 mg tablet 20 mg PO DAILY bp #90 tabs 10/05/22 [Rx Last Taken Unknown] olanzapine 10 mg tablet 10 mg PO QHS bipolar #30 tabs 10/23/22 [Rx Last Taken Unknown] hydroxyzine HCl 50 mg tablet 50 mg PO .QID PRN anxiety 30 days #120 tabs 11/08/22 [Rx Last Taken Unknown] simvastatin 20 mg tablet 20 mg PO QHS hld #90 tabs 11/08/22 [Rx Last Taken Unknown] cyclobenzaprine 10 mg tablet 5 - 10 mg (0.5 - 1 x 10 mg) PO BID PRN muscle spasm #20 tabs 11/28/22 [Rx Last Taken Unknown] oxycodone-acetaminophen 5 mg-325 mg tablet 1 tab PO TID PRN pain (scale score 4- 6) 12/12/22 [History Last Taken 02/05/23] gabapentin 800 mg tablet See Rx Instructions .Route .COMPLEX pain #30 tabs 01/29/23 [Rx Last Taken 02/06/23] montelukast 10 mg tablet 10 mg PO DAILY asthma #60 tabs 01/29/23 [Rx Last Taken Unknown] doxepin 10 mg capsule See Rx Instructions .Route .COMPLEX sleep #30 caps 01/31/23 [Rx Last Taken Unknown] escitalopram oxalate 20 mg tablet 20 mg PO DAILY depression #30 tabs 01/31/23 [Rx Last Taken Unknown] lamotrigine 200 mg tablet 200 mg PO BID seizure 30 days #60 tabs 01/31/23 [Rx Last Taken Unknown] prazosin 1 mg capsule 1 mg PO DAILY htn 30 days #30 caps 01/31/23 [Rx Last Taken Unknown] Allergy/AdvReac Type Severity Reaction Status Date / Time bee venom protein (honey bee) Allergy Mild SWELLING/ Verified 02/06/23 19:12 SOB Family History Unknown Past medical history not known due to adoption Surgical History H/O laparoscopy History of total hysterectomy Hx of breast biopsy Social History (Updated 02/06/23 @ 19:[address] Iraj Bateman MD) household members: spouse Smoking Status: Never smoker alcohol intake: current alcohol intake frequency: 3 or more drinks per day Alcohol type: beer and hard liquor substance use type: does not use caffeine: Yes what type of physical activity do you participate in: walking frequency: 1-2 times per week seatbelt use: always do you feel safe at home: Yes additional social history: -Aashish ROS Constitutional Constitutional: Denies chills, fatigue, fever(s) or weakness Eyes Eyes: Denies change in vision Cardiovascular Cardiovascular: Denies chest pain Respiratory/Chest Respiratory/Chest: Denies cough Gastrointestinal Gastrointestinal: Denies abdominal pain Genitourinary Genitourinary: Denies dysuria Musculoskeletal Musculoskeletal: Denies back pain Neurologic Neurologic: Denies dizziness, focal weakness or headache(s) Vital Signs Vital Signs Vital Signs: 02/06/23 19:10 Temperature 97.6 F L Temperature Source Temporal Pulse Rate 80 Respiratory Rate 18 Blood Pressure 163/85 H Blood Pressure Mean 111 Pulse Ox 98 Oxygen Delivery Method Room Air Weight Weight: 75.3 kg Body Mass Index (BMI) 30.3 Physical Exam Const alert and no apparent distress Constitutional Narrative: Middle-aged female, sitting up comfortably in bed, mildly altered mentation suspected due to alcohol intoxication, alert but not answering all questions appropriately, no acute distress. General Appearance: cooperative and comfortable HEENT normocephalic, head/scalp atraumatic, hearing grossly normal bilaterally and nasal mucous membranes and turbinates normal HEENT Narrative: Dry mucous membranes. Eyes PERRL, EOMs intact bilaterally and conjunctivae normal Neck full ROM, no lymphadenopathy and supple Lymph Lymphatic: no lymphadenopathy noted Chest inspection of chest normal Resp normal respiratory effort, normal air movement, no use of accessory muscles and clear to auscultation bilaterally Cardio no murmurs and peripheral pulses 2+ throughout Cardio Narrative: Sinus tachycardia. GI normal to inspection, nondistended, normoactive bowel sounds, soft to palpation, non-tender and non-distended Back/Spine normal ROM Extremity normal to inspection, full ROM and no pedal edema Skin no rashes or lesions noted Neuro moves all extremities and no focal motor deficits Results Lab / Micro Data 02/06/23 19:45 Labs: Laboratory Results - last 24 hr 02/06/23 19:45: Sodium 129 L, Potassium 3.6, Chloride 97 L, Carbon Dioxide 22.0, Anion Gap 10, BUN 11, Creatinine 0.77, Estim Creat Clear Calc 61.45, Est GFR (MDRD) Af Amer 98, Est GFR (MDRD) Non-Af 81, BUN/Creatinine Ratio 14.2, Glucose 100, Calcium 8.5, Total Bilirubin 0.30, AST 14 L, ALT 17, Alkaline Phosphatase 141 H, Total Protein 6.8, Albumin 3.5, Globulin 3.3, Albumin/Globulin Ratio 1.1, Urine Opiates Screen NEGATIVE, Urine Methadone Screen NEGATIVE, Ur Barbiturates Screen NEGATIVE, Ur Phencyclidine Scrn NEGATIVE, Ur Amphetamines Screen NEGATIVE, MDMA (Ecstasy) Screen NEGATIVE, U Benzodiazepines Scrn NEGATIVE, Urine Cocaine Screen NEGATIVE, U Cannabinoids Screen NEGATIVE, Ur Drug Screen Comment , Ethyl Alcohol 66.0 Assessment & Plan Assessment/Plan (1) Acute alcohol intoxication with alcoholism: PLAN: Plan Patient is a 62 F who presented to [facility] ED on 02/06/2023 requesting alcohol detoxification. 1. Alcohol abuse, high risk for alcohol withdrawal Heavy alcohol use at home, high risk for withdrawal. Has never gone through alcohol detox before. ? Admit under inpatient status to [facility]. Will initiate phenobarbital taper. Alcohol withdrawal order set used for additional as needed orders. Start folate and thiamine. Case management consulted. 2. Hyponatremia ? Sodium 129 on admit. May be secondary to poor p.o. intake versus beer potomania. S/p 1 L normal saline in the ED. Follow-up a.m. BMP. Serum osmolality, urine osmolality and urine sodium ordered. 3. Hypertension ? Hypertensive to 160s systolic in the ED. Continued home lisinopril 20 mg daily. Suspect patient may be somewhat hypertensive while admitted due to alcohol withdrawal. 4. Bipolar 2 disorder ? Follows with psychiatry outpatient, last office visit on 12/12/2022. Continued home Lexapro, olanzapine at night, Lamictal. Chronic medical conditions: ? GERD: Continue home PPI twice daily. ? Overactive bladder: Continue home oxybutynin. ? Obesity: BMI 30 on admit. Encouraged lifestyle modifications. Complicates hospital course, care and prognosis. ? CHIQUI: Continued home CPAP. ? Chronic back pain: Continue gabapentin 800 mg 3 times daily, oxycodone 5 mg 3 times daily as needed. Checked [facility] report, has been filling regularly. ? History of CVA, hyperlipidemia: Continue home aspirin and statin. ? COPD/asthma/seasonal allergies: Continue home inhalers, Singulair. DVT prophylaxis: Lovenox CODE STATUS: Full code, unverified Expected disposition: Home, 2 to 3 days Total clinical time spent by myself addressing the patient's medical issues, reviewing all the data, and collaborating with patient's care team: 55 minutes. Charges/Coding Visit Charges Inpatient E&M: 28402 Init Hosp L2
[2023-02-06 21:30] VITALS: BMI 30.3
[2023-02-06 21:42] VITALS: BP 162/83; PULSE 70; RESP 17; TEMP 36.6; O2SAT 97
[2023-02-06] MEDS: 0.9% Normal Saline (1000mL) 1,000 ML 100 ML IV (21:48)
[2023-02-06] MEDS: lamoTRIgine 100 MG Tablet 200 MG PO (22:50)
[2023-02-06] MEDS: Atorvastatin Calcium 10 MG Tablet PO (22:50)
[2023-02-06] MEDS: OLANZapine 10 MG Tablet PO (22:50)
[2023-02-06] MEDS: Pantoprazole Sodium 40 MG Tablet PO (22:50)
[2023-02-06] MEDS: Phenobarbital 32.4 MG Tablet 64.7999999999999972 MG PO (22:50)
[2023-02-06] MEDS: Gabapentin 600 MG Tablet PO (22:50)
[2023-02-06] MEDS: Acetaminophen 325 MG Tablet 650 MG PO (22:50)
[2023-02-06 23:18] LABS: Urine Sodium 24 mmol/L (Not Establ.)
[2023-02-06 23:19] VITALS: PULSE 93; RESP 18; O2SAT 98
[2023-02-06] MEDS: Albuterol 2.5 MG/3 ML VIAL.NEB. INHALATION (23:19)
[2023-02-07] VITALS (9 sets, daily range): BP systolic 122–136; BP diastolic 61–81; PULSE 68–85; RESP 16–18; TEMP 36.4–36.8; O2SAT 97–98
--- NOTE | 2023-02-07 00:08 | CPS ---
Pt refused PAP therapy for the night. Stated that is bringing in her own machine tomorrow morning. Pt on RA 98%
[2023-02-07 00:28] LABS: Prothrombin Time (Protime)PT. 13.2 SECONDS (11.7-14.9)
--- OUTSIDE RECORDS SUMMARY | 2023-02-07 01:26 | XMS RPT_ITS | CCD ---
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 Name Role Phone DEVIN RAMIREZ Admitting Unavailable DEVIN RAMIREZ Attending Unavailable DEVIN RAMIREZ Primary Care Unavailable DEVIN RAMIREZ Consulting Unavailable PROVIDER, UNKNOWN Consulting Unavailable Margarita Garcia MD Primary Care Provider 1([phone]) Margarita Garcia MD Primary Care Provider 1([phone]) MARGARITA GARCIA MD Primary Care Physician (05 [phone]) WILMA EFEWONGBE Shoaib Primary Care Unavailable OLEGHE, EFEWONGBE B Primary Care Unavailable OLEGHE, EFEWONGBE B Primary Care Unavailable OLEGHE, EFEWONGBE Shoaib Primary Care Unavailable OLEGHE, EFEWONGBE B Primary Care Unavailable ARYA TAO PA-C Attending Unavailable MARGARITA GARCIA MD Primary Care Unavailab Lisbeth PONCE, DR ALEGRIA Attending Unavailable MARGARITA GARCIA MD Primary Care Unavailab RAZ Griffin MD Consulting Unavailab Lisbeth PONCE, DR ALEGRIA Attending Unavailable MARGARITA GARCIA MD Primary Care Unavailab le Allergies Allergy Classification Reported Allergen(s) Allergy Type Date of Onset Reaction(s) Facility (5 sources) Bee Venom Protein (Honey Bee); Translations: [BEE VENOM PROTEIN (HONEY BEE)] Drug Allergy 01-06-2020 Shortness of Breath [facility] Medications Current Medications Medication Drug Class(es) Dates Sig (Normalized) Sig (Original) acetaminophen 325 mg / oxyCODONE hydrochloride 5 mg oral tablet (5 sources) Opioid Agonist Start: 11-23-2020 End: 12-07-2022 take 1 tablet by mouth every four hours as needed for pain Percocet 5 mg-325 mg oral tablet Dose = 1 tab(s), Oral, q4h, PRN as needed for pain, X 7 day(s), # 28 tab(s), 0 Refill(s), Pharmacy: [id number], Post-op pain, 157.5, cm, 11/30/22 6:54:00 EDT, Height, 71.8, kg, 11/30/22 6:54:00 EDT, Dosing Weight Start Date: 11/30/22 Stop Date: 12/07/22 Status: Ordered Completed/Discontinued Medications Medication Drug Class(es) Dates Sig (Normalized) Sig (Original) 8 hr acetaminophen 650 mg extended release oral tablet (4 sources) take 2 tablets by mouth every eight hours as needed acetaminophen 650 mg CR tablet Take 1,300 mg by mouth every 8 hours as needed for pain. 0 Active Problems Problem Classification Problem Date Documented Date Episodic/Chronic Anxiety disorders (2 sources) Anxiety 06-15-2016 Chronic Disorders of lipid metabolism (3 sources) Hyperlipidemia, unspecified; Translations: [Hyperlipidemia] Onset: 01-07-2019 06-15-2016 Chronic Essential hypertension (3 sources) Essential (primary) hypertension; Translations: [Hypertensive disorder] Onset: 01-07-2019 06-15-2016 Chronic Mood disorders (4 sources) Bipolar disorder; Translations: [Depressive disorder] 06-15-2016 Chronic Mycoses (1 source) Candidiasis of mouth; Translations: [Candidal stomatitis] Episodic Osteoarthritis (2 sources) Primary osteoarthritis, right ankle and foot; Translations: [Primary osteoarthritis, right ankle and foot] Onset: 11-30-2022 Chronic Other lower respiratory disease (1 source) Cough; Translations: [Acute cough] 10-31-2022 Episodic Other nervous system disorders (1 source) Postoperative pain ; Translations: [Other acute postprocedural pain] Onset: 11-30-2022 Episodic Other upper respiratory infections (1 source) Chronic sinusitis; Translations: [Chronic sinusitis, unspecified] Chronic Other upper respiratory infections (1 source) Upper respiratory infection; Translations: [Acute upper respiratory infection, unspecified] 10-31-2022 Episodic Residual codes; unclassified (2 sources) Chronic back pain 06-15-2016 Episodic Spondylosis; intervertebral disc disorders; other back problems (2 sources) Sciatica 06-15-2016 Episodic Results Test Name Value Interpretation Reference Range Facil ity Vital Signs Date Time Vital Sign Value Performing Clinician Zoey de león 01-16-2023 21:02-0500 Diastolic Blood Pressure Non-Invasive 69 mm[Hg] YARIEL FLOWERS MD [address] [place] [id number] 01-16-2023 21:02-0500 Heart rate 75 /min YARIEL FLOWERS MD [address] [place] [id number] 01-16-2023 21:02-0500 Respiratory rate 18 /min YARIEL FLOWERS MD [address] [place] [id number] 01-16-2023 21:02-0500 Systolic Blood Pressure Non-Invasive 113 mm[Hg] YARIEL FLOWERS MD [address] [place] [id number] 01-16-2023 16:17-0500 Diastolic Blood Pressure Non-Invasive 83 mm[Hg] YARIEL FLOWERS MD [address] [place] [address] 01-16-2023 16:17-0500 Heart rate 68 /min YARIEL FLOWERS MD [address] [place] [address] 01-16-2023 16:17-0500 Respiratory rate 18 /min YARIEL FLOWERS MD [address] [place] [id number] 01-16-2023 16:17-0500 Systolic Blood Pressure Non-Invasive 136 mm[Hg] YARIEL FLOWERS MD [address] [place] [address] 01-16-2023 13:47-0500 Body temperature 98.24 [degF] YARIEL FLOWERS MD [facility] 01-16-2023 13:47-0500 Body weight 71.6 kg YARIEL FLOWERS MD [address] [place] [address] 01-16-2023 13:47-0500 Diastolic Blood Pressure Non-Invasive 73 mm[Hg] YARIEL FLOWERS MD [address] [place] [address] 01-16-2023 13:47-0500 Heart rate 84 /min YARIEL FLOWERS MD [address] [place] [address] 01-16-2023 13:47-0500 Respiratory rate 18 /min YARIEL FLOWERS MD [facility] 01-16-2023 13:47-0500 Systolic Blood Pressure Non-Invasive 127 mm[Hg] YARIEL FLOWERS MD [facility] 11-30-2022 15:18-0400 Diastolic Blood Pressure Non-Invasive [address] AIRAM MARAVILLA DPM [facility] 11-30-2022 15:18-0400 Systolic Blood Pressure Non-Invasive [address] AIRAM MARAVILLA DPM [facility] 11-30-2022 14:04-0400 Body temperature 97.52 [degF] DR AIRAM MARAVILLA DPM [facility] 11-30-2022 14:04-0400 Diastolic Blood Pressure Non-Invasive [address] AIRAM MARAVILLA DPM [facility] 11-30-2022 14:04-0400 Heart rate 78 /min DR AIRAM MARAVILLA DPM [facility] 11-30-2022 14:04-0400 Respiratory rate 16 /min DR AIRAM MARAVILLA DPM [facility] 11-30-2022 14:04-0400 Systolic Blood Pressure Non-Invasive [address] AIRAM MARAVILLA DPM [facility] 11-30-2022 13:15-0400 Body temperature 97.52 [degF] DR AIRAM MARAVILLA DPM [facility] 11-30-2022 13:15-0400 Diastolic Blood Pressure Non-Invasive [address] AIRAM MARAVILLA DPM [facility] 11-30-2022 13:15-0400 Heart rate 82 /min DR AIRAM MARAVILLA DPM [facility] 11-30-2022 13:15-0400 Mean blood pressure 108 mm[Hg] DR AIRAM MARAVILLA DPM [facility] 11-30-2022 13:15-0400 Respiratory rate 16 /min DR AIRAM MARAVILLA DPM [facility] 11-30-2022 13:15-0400 Systolic Blood Pressure Non-Invasive [address] AIRAM MARAVILLA DPM [facility] 11-30-2022 13:00-0400 Heart rate 84 /min DR AIRAM MARAVILLA DPM [facility] 11-30-2022 12:55-0400 Heart rate 81 /min DR AIRAM MARAVILLA DPM [facility] 11-30-2022 12:45-0400 Mean blood pressure 100 mm[Hg] DR AIRAM MARAVILLA DPM [facility] 11-30-2022 12:30-0400 Body temperature 96.98 [degF] DR AIRAM MARAVILLA DPM [facility] 11-30-2022 12:30-0400 Mean blood pressure 101 mm[Hg] DR AIRAM MARAVILLA DPM [facility] 11-30-2022 12:20-0400 Respiratory Rate - Anes 0 br/min DR AIRAM MARAVILLA DPM [facility] 11-30-2022 12:15-0400 Respiratory Rate - Anes 15 br/min DR AIRAM MARAVILLA DPM [facility] 11-30-2022 12:10-0400 Respiratory Rate - Anes 16 br/min DR AIRAM MARAVILLA DPM [facility] 11-30-2022 11:05-0400 Body temperature 96.8 [degF] DR AIRAM MARAVILLA DPM [facility] 11-30-2022 10:45-0400 Body temperature 96.8 [degF] DR AIRAM MARAVILLA DPM [facility] 11-30-2022 06:51-0400 Body height 157.[address] AIRAM MARAVILLA DPM [facility] 11-30-2022 06:51-0400 Body weight 71.[address] AIRAM MARAVILLA DPM [facility] 11-30-2022 06:51-0400 Heart rate 67 /min DR AIRAM MARAVILLA DPM [facility] 10-31-2022 19:23-0400 Body temperature 98.4 [degF] Sheela Champion MOLECULAR BIOLOGY DIRECTOR.CORPORATE SAFETY MANAGER Work Phone: [facility] 10-31-2022 19:23-0400 Body weight 68.04 kg Sheela Champion MOLECULAR BIOLOGY DIRECTOR.CORPORATE SAFETY MANAGER Work Phone: [facility] 10-31-2022 19:23-0400 Diastolic blood pressure 82 mm[Hg] Sheela Champion MOLECULAR BIOLOGY DIRECTOR.CORPORATE SAFETY MANAGER Work Phone: [facility] 10-31-2022 19:23-0400 Heart rate 79 /min Sheela Champion MOLECULAR BIOLOGY DIRECTOR.CORPORATE SAFETY MANAGER Work Phone: [facility] 10-31-2022 19:23-0400 Respiratory rate 18 /min Sheela Champion MOLECULAR BIOLOGY DIRECTOR.CORPORATE SAFETY MANAGER Work Phone: [facility] 10-31-2022 19:23-0400 SaO2% (BldA) [Mass fraction] 97 % Sheela Champion MOLECULAR BIOLOGY DIRECTOR.CORPORATE SAFETY MANAGER Work Phone: [facility] 10-31-2022 19:23-0400 Systolic blood pressure 136 mm[Hg] Sheela Champion MOLECULAR BIOLOGY DIRECTOR.CORPORATE SAFETY MANAGER Work Phone: [facility] 04-06-2022 17:29-0500 Body temperature 98.1 [degF] Krislyn Aberegg PA Work Phone: [facility] 04-06-2022 17:29-0500 Body weight 64.32 kg Krislyn Aberegg PA Work Phone: [facility] 04-06-2022 17:29-0500 Diastolic blood pressure 84 mm[Hg] Krislyn Aberegg PA Work Phone: [facility] 04-06-2022 17:29-0500 Heart rate 73 /min Krislyn Aberegg PA Work Phone: [facility] 04-06-2022 17:29-0500 Respiratory rate 18 /min Krislyn Aberegg PA Work Phone: [facility] 04-06-2022 17:29-0500 SaO2% (BldA) [Mass fraction] 99 % Krislyn Aberegg PA Work Phone: [facility] 04-06-2022 17:29-0500 Systolic blood pressure 128 mm[Hg] Krislyn Aberegg PA Work Phone: [facility] 11-30-2021 19:15-0400 Body temperature 97.7 [degF] Kaylen Athy PA-C Work Phone: [facility] 11-30-2021 19:15-0400 Body weight 70.94 kg Kaylen Athy PA-C Work Phone: [facility] 11-30-2021 19:15-0400 Diastolic blood pressure 78 mm[Hg] Kaylen Athy PA-C Work Phone: [facility] 11-30-2021 19:15-0400 Heart rate 83 /min Kaylen Athy PA-C Work Phone: [facility] 11-30-2021 19:15-0400 Respiratory rate 18 /min Kaylen Athy PA-C Work Phone: [facility] 11-30-2021 19:15-0400 SaO2% (BldA) [Mass fraction] 97 % Kaylen Athy PA-C Work Phone: [facility] 11-30-2021 19:15-0400 Systolic blood pressure 122 mm[Hg] Kaylen Rupa ALCARAZ Work Phone: [facility] Encounters Encounter Date Encounter Type Care Provider Facility Start: 01-16-2023 End: 01-17-2023 Emergency department patient visit ARYA DINH ALCARAZ Facility:A Start: 01-16-2023 Telephone encounter Gala Montana APRN.CORPORATE SAFETY MANAGER Work Phone: [facility] Procedures Date Procedure Procedure Detail Performing Clinician Start: 10-31-2022 STREP A MOLECULAR (POC) Gala Montana APRN.CORPORATE SAFETY MANAGER Work Phone: Start: 02-11-[address] AIRAM MARAVILLA DPM Start: 02-11-[address] ALESSANDRO MARAVILLA DPM Start: 02-11-[address] AIRAM MARAVILLA DPM Hysterectomy DR AIRAM MARAVILLA DPM Plan of Treatment Date Care Activity Detail Author Start: 10-31-2022 End: 11-14-2022 COVID & INFLUENZA A/B & RSV NAAT, ROUTINE [facility] Work Phone: Immunizations Immunization Date Immunization Notes Care Provider Keon espinoza 01-07-2019 influenza virus vacc ine, unspecified formulation Sheela Champion APRN.CORPORATE SAFETY MANAGER Work Phone: [facility] Payers Date Payer Category Payer Unknown [id number] 2018 Unknown [employer] PPO [id number] 2018-Present [phone] [address] [place] [address] PPO [id number] 1962 Unknown [id number] 1960 Unknown [id number] 1962 Unknown [id number] 1960 Unknown [id number] Social History Date Type Detail Facility Start: 11-30-2021 End: 11-30-2022 Tobacco smoking status NHIS Never smoked tobacco [facility] Start: 11-30-2021 Tobacco use and exposure Smoke less tobacco non-user [facility] Start: 11-30-2021 End: 01-15-2023 Alcohol intake Current drinker of alcohol (finding) [facility] Start: 11-21-2020 Alcohol Comment [address] [facility] Start: 1960 Sex Assigned At Not on file [facility] Start: 01-18-2020 End: 10-31-2022 History of Social function [facility] Start: 01-18-2020 End: 10-31-2022 Tobacco use panel [facility] National Score (1-10 0), lower number is lower risk Not on file [facility] Sex Assigned At Female [facility] Medical Equipment Procedure Code Equipment Code Equipment Origin al Text Equipment Identifier Dates Z Milagros [id number] Start: 11-23-2020 POD Bunionectomy w/Lapiplasty Arthrodesi Unknown 11/30/22 Unknown Unknown FDA Start: 11-30-2022 POD Bunionectomy w/Lapiplasty Arthrodesi Unknown 11/30/22 Unknown Unknown FDA Start: 11-30-2022 POD Bunionectomy w/Lapiplasty Arthrodesi Unknown 11/30/22 Unknown Unknown FDA Start: 11-30-2022 POD Bunionectomy w/Lapiplasty Arthrodesi Unknown 11/30/22 Unknown Unknown FDA Start: 11-30-2022 POD Bunionectomy w/Lapiplasty Arthrodesi Unknown 11/30/22 Unknown Unknown FDA Start: 11-30-2022 POD Bunionectomy w/Lapiplasty Arthrodesi Unknown 11/30/22 Unknown Unknown FDA Start: 11-30-2022 POD Bunionectomy w/Lapiplasty Arthrodesi Unknown 11/30/22 Unknown Unknown FDA Start: 11-30-2022 POD Bunionectomy w/Lapiplasty Arthrodesi Unknown 11/30/22 Unknown Unknown FDA Start: 11-30-2022 POD Bunionectomy w/Lapiplasty Arthrodesi Unknown 11/30/22 Unknown Unknown FDA Start: 11-30-2022 POD Bunionectomy w/Lapiplasty Arthrodesi Unknown 11/30/22 Unknown Unknown FDA Start: 11-30-2022 Functional Status Date Assessment Result Facility 11-30-2022 Functional Status Independent [facility] 11-30-2022 Functional Status ice on [facility] 11-30-2022 Functional Status [facility] 11-30-2022 Functional Status Maintained [facility] Mental Status Date Assessment Result Facility 11-30-2022 Mental Status Orientation Oriented x 4 [facility] 11-30-[address] [facility] 11-23-2020 to 01-16-2023 Telephone Encounter - Tere Rios RN - 01/16/2023 9:43 AM ESTTelephone Encounter - Blaire Hudson - 01/16/2023 7:25 AM ESTTelephone Encounter - Gala Montana APRN.CNP - 01/16/2023 7:18 AM EST Note Date & Type Note Facility 01-16-2023 Note ORIGINAL EXAMINATION: CT OF THE HEAD WITHOUT CONTRAST 01/16/2023 3:58 pm TECHNIQUE: CT of the head was performed without the administration of intravenous contrast. Automated exposure control, iterative reconstruction, and/or weight based adjustment of the mA/kV was utilized to reduce the radiation dose to as low as reasonably achievable. COMPARISON: None. HISTORY: ORDERING SYSTEM PROVIDED HISTORY: Reason for Exam: DIZZY, MULTIPLE RECENT FALLS, HX TIA dizziness FINDINGS: BRAIN/VENTRICLES: There is no acute intracranial hemorrhage, mass effect or midline shift. No abnormal extra-axial fluid collection. The torres-white differentiation is maintained without evidence of an acute infarct. There is no evidence of hydrocephalus. ORBITS: The visualized portion of the orbits demonstrate no acute abnormality. SINUSES: Mild mucosal thickening of the paranasal sinuses. Mastoid air cells are predominantly clear. Soft tissue density within the right middle ear cavity is nonspecific. SOFT TISSUES/SKULL: No acute abnormality of the visualized skull or soft tissues. IMPRESSION: No acute intracranial abnormality. Nonspecific density in the right middle ear cavity may represent fluid, however a cholesteatoma is not excluded. Consider nonemergent dedicated CT examination of the temporal bones. I have personally reviewed the images of this examination and agree with the resident's findings and interpretation. Interpreted by: David Herrera MD Preliminary Report By: Keith Colmenares Electronically signed By David Herrera MD Dictated Date: 01/16/2023 4:01:30 PM Prelim Date: 01/16/2023 4:14:18 PM Sign Date: 01/16/2023 4:14:18 PM Ordering Provider: [facility] 01-16-2023 Miscellaneous Notes Patient notified of results and provider's instructions. Patient verbalizes understanding. Tere Rios RN Left message for patient to call back and ask for a triage nurse for results. Blaire Hudson Patient was positive for COVID. Patient should quarantine for 5 days then mask for another 5 days. [id number] medications as appropriate for treatment. Patient was negative for flu and RSV. documented in this encounter [facility] 01-15-2023 Note HNO ID: [id number] Author: Sheela Champion APRN.MARIA ISABEL Service: ? Author Type: Nurse Practitioner Type: Progress Notes Filed: 01/15/2023 4:38 PM Note Text: This note was created using Hartman Wrightriter. Subjective Connie Greenberg is a 62 year old female. 62 year old female with PMH HTN, hyperlipidemia, COPD presents for ear pain. Acute onset 2 days ago +right ear pain +throbbing +cough +productive +fatigue +body aches Denies SOB or dyspnea Denies CP Endorses a home COVID was positive. The history is provided by the patient. No second language tutor was used. Ear Pain This is a new problem. The current episode started in the past 7 days. The problem occurs constantly. Associated symptoms include congestion, coughing, fatigue and headaches. Pertinent negatives include no abdominal pain, anorexia, arthralgias, change in bowel habit, chest pain, chills, diaphoresis, fever, joint swelling, myalgias, nausea, neck pain, numbness, rash, sore throat, swollen glands, urinary symptoms, vertigo, visual change, vomiting or weakness. Nothing aggravates the symptoms. She has tried nothing for the symptoms. The treatment provided no relief. PAST MEDICAL HISTORY Diagnosis Date Anxiety and depression Arthritis Asthma Bipolar disorder (HCC) CVA (cerebral vascular accident) (HCC) Diarrhea, functional GERD (gastroesophageal reflux disease) Hiatal hernia High cholesterol Hypertension Impaired cognition Irritable bowel syndrome with both constipation and diarrhea Sleep apnea TIA (transient ischemic attack) 2016 PAST SURGICAL HISTORY Procedure Laterality Date BX OF BREAST; INCISIONAL Left 1992 benign ESOPHAGEAL MANOMETRY 03/10/2021 30% weak AND 30% ineffective swallows; Dr. Gonzales FOOT SURGERY HX Left 11/23/2020 mid-foot arthrodesis, great toe tendon release and bunionectomy; Dr. Maravilla HYSTERECTOMY HX 1990s ALLERGIES Bee Venom Protein (Honey Bee) MEDICATIONS benzonatate (TESSALON PERLES) 100 mg capsule Take 1 capsule by mouth three times daily as needed for cough. escitalopram oxalate (LEXAPRO) 10 mg tablet escitalopram 10 mg tablet TAKE 1 TABLET BY MOUTH DAILY OTC PRODUCT Prevajen oral Extra strength ADVAIR DISKUS 250-50 mcg/dose inhaler INHALE one INHALATION TWICE DAILY nystatin (MYCOSTATIN) 100,000 unit/mL suspension Take 5 mL by mouth four times daily. 1tsp swish in mouth for several minutes, then swallow (or expectorate) 4 times daily until gone. oxyCODONE-acetaminophen (PERCOCET) 5-325 mg tablet Take 1-2 tablets by mouth every 4 hours as needed. gabapentin (NEURONTIN) 800 mg tablet Take 800 mg by mouth three times daily. lamoTRIgine (LAMICTAL) 150 mg tablet Take 150 mg by mouth twice daily. lisinopril (ZESTRIL, PRINIVIL) 10 mg tablet Take 10 mg by mouth once daily. traZODone (DESYREL) 50 mg tablet Take 100 mg by mouth daily at bedtime. melatonin 10 mg tab Take by mouth daily at bedtime. 10-20 mg OLANZapine (ZYPREXA) 10 mg tablet Take 10 mg by mouth daily at bedtime. hydrOXYzine pamoate (VISTARIL) 50 mg capsule Take 50 mg by mouth three times daily as needed. lidocaine (LIDOCARE TOPICAL) Apply to affected area as needed. eluxadoline (VIBERZI) 100 mg tab Take 50 mg by mouth as needed (diarrhea). ondansetron (ZOFRAN) 4 mg tablet Take by mouth every 8 hours as needed for nausea/vomiting. cyclobenzaprine (FLEXERIL) 10 mg tablet Take by mouth as needed. Apple Cider Vinegar 500 mg tab Take by mouth once daily. fluticasone propion-salmeterol (AIRDUO DIGIHALER) 113 mcg-14 mcg/actuation digihaler Inhale 1 Inhalation as instructed twice daily. calcium carbonate (TUMS ORAL) Take by mouth as needed. naproxen sodium 220 mg cap Take by mouth as needed (pain). 1-2 tablets acetaminophen 650 mg CR tablet Take 1,300 mg by mouth every 8 hours as needed for pain. COQ10, UBIQUINOL, ORAL Take 200 mg by mouth once daily. pyridoxine, vitamin B6, (VITAMIN B6) 100 mg tablet Take 100 mg by mouth once daily. cyanocobalamin (VITAMIN B-12) 500 mcg tablet Take by mouth once daily. Cholecalciferol, Vitamin D3, 25 mcg (1,000 unit) cap Take 1,000 Units by mouth once daily. multivit with calcium,iron,min (WOMEN'S MULTIPLE VITAMINS ORAL) Take by mouth once daily. TURMERIC ORAL Take 500 mg by mouth once daily. oxybutynin ER (DITROPAN XL) 15 mg 24 hr Extended Rel Tab Take 15 mg by mouth once daily. estradiol 0.01% estriol 0.01% topical cream (CPD) Apply to affected area daily at bedtime. aspirin 81 mg chewable tablet Take 81 mg by mouth once daily. albuterol HFA (VENTOLIN HFA) 90 mcg/actuation inhaler Inhale 2 Puffs as instructed every 4 hours as needed for Wheezing/Shortness of Breath. montelukast (SINGULAIR) 10 mg tablet Take 10 mg by mouth daily at bedtime. Omeprazole 40 mg capsule TAKE ONE CAPSULE AT 5PM prazosin (MINIPRESS) 1 mg cap Take 1 mg by mouth daily at bedtime. simvastatin (ZOCOR) 20 mg tablet Take 20 mg by mouth daily at bedtime. be (more content not included)... [facility] 11-30-2022 Hospital Discharg e instructions Patient Education 11/30/2022 14:03:24 1- [facility] General Discharge Guidelines (10/26/2022) (CUSTOM) FER SAME DAY SURGERY DISCHARGE INSTRUCTIONS PLEASE FOLLOW THE INSTRUCTIONS BELOW MARKED WITH AN X: __X_Regular Diet: Start with clear liquids, then soup and crackers. Gradually add other foods unless otherwise instructed by your surgeon __X_Drink extra fluids ACTIVTY: __X_Since you have had anesthetic, it would be advisable not to drive, drink alcohol, or make major decisions over the next 24 hours. You may require more rest tonight and tomorrow __X_Do not drive vehicle while taking narcotics and as directed by your Surgeon ____Restrict activity as follows: ____Do not have sexual intercourse. Nothing in the vagina-No tampons or Douching ____No heavy lifting, pushing, or straining ____Elevate operative limb ____Ice as directed __X_Follow all written and verbal instructions given to you by your Doctor ____Other: BATHING/SHOWERING ____Sponge bathe until office visit. ____Sitting in tub of warm water may relieve discomfort ____May tub bathe ____May shower in 24-48 hours with clean linen unless otherwise instructed by your Doctor DRESSING: ____Keep operative area clean and dry ____Check the operative area for signs of bleeding. Apply pressure to the bleeding site if necessary. ____Change drip pad as needed ____Wear scrotal support for comfort WATCH FOR SIGNS OF INFECTION: (Usually appears 36-48 hours after surgery) Increased temperature (101 degrees Fahrenheit or higher) Redness or swelling Increased pain Foul odor or drainage If you have any questions, please call your doctor at the number listed on your follow-up instructions. Follow Up Care 07/19/2022 16:00:11 With:jamal Address: When: Unknown [facility] 11-30-2022 Summary of episod e note Discharge Instructions Thank you for allowing [facility] to assist you with your healthcare needs. The following is important discharge information regarding your hospital visit. Your Care Team MARGARITA GARCIA MD Your Diagnosis Post-op pain What to do next Follow Up Appointments Follow Up with [facility] When Where: The Following Activity and Diet Have Been Ordered for You Discharge Activity - Ordered -- Follow the post-operative/post-procedure activity instructions provided by your physician's office., 11/30/22 12:55:00 EDT Discharge Diet - Ordered -- Follow the post-operative/post-procedure diet instructions provided by your physician's office., 11/30/22 12:55:00 EDT The Following Equipment Has Been Ordered for You Discharge Home Equipment Discharge Wound Care - Ordered -- Follow the post-operative/post-procedure wound care instructions provided by your physician's office., 11/30/22 12:55:00 EDT Allergies NKA Medications Please ask your primary doctor or pharmacist before taking any other medication not listed, including over the counter drugs, herbal medications, vitamins and or supplements as they may interact with your home medications. What How Much When Why Instructions Last Dose New acetaminophen-oxyCODONE (Percocet 5 mg-325 mg oral tablet) 1 tab(s) by mouth Every 4 hours as needed for as needed for pain Post-op pain Duration: 7 Days Pickup at [facility] Unchanged albuterol (Ventolin MDI HFA) 2 puff(s) by inhalation Four (4) times a day as needed for as needed for wheezing Unchanged ARIPiprazole (Abilify 10 mg oral tablet) 1 tab(s) by mouth Once a day Unchanged aspirin 81 Milligram by mouth Once a day Unchanged atogepant (Qulipta 60 mg oral tablet) 1 tab(s) by mouth Once a day Unchanged budesonide-formoterol (Symbicort 160 mcg-4.5 mcg/ inh Inhaler) 2 puff(s) by inhalation Two (2) times a day Unchanged chlorproMAZINE (chlorproMAZINE (Thorazine)) 25 Milligram by mouth Two (2) times a day Unchanged chlorproMAZINE (chlorproMAZINE (Thorazine)) 100 Milligram by mouth Once a day Unchanged cholecalciferol (Vitamin D3 1000 intl units oral tablet) 1 tab(s) by mouth Every day Unchanged citalopram 60 Milligram by mouth Once a day Unchanged clonazePAM (KlonoPIN 0.5 mg oral tablet) 1 tab(s) by mouth Three (3) times a day Unchanged cyanocobalamin (Vitamin B12) 500 Microgram by mouth Once a day Unchanged cyclobenzaprine (Flexeril 10 mg oral tablet) 1 tab(s) by mouth Two (2) times a day as needed for as needed for muscle spasm Unchanged diclofenac topical (diclofenac 1% topical gel) Topical Four (4) times a day Unchanged doxepin (doxepin 10 mg oral capsule) by mouth Three (3) times a day Unchanged DULoxetine (Cymbalta 60 mg oral delayed release capsule) 1 cap by mouth Two (2) times a day Unchanged ethinyl estradiol-etonogestrel (ethinyl estradiol-etonogestrel 0.015 mg-0.120 mg/ 24 hours vaginal ring) 1 Each Vaginal Every 4 weeks Unchanged famotidine (famotidine 10 mg oral tablet) by mouth Once Unchanged gabapentin (gabapentin 800 mg oral tablet) 1 tab(s) by mouth Three (3) times a day Unchanged herbal/ nutritional product (Evening [place] Oil 1000 mg oral capsule) See instructions 1 cap(s) Oral Daily Unchanged herbal/ nutritional product (Magnesium complex 400 mg) Unchanged hydrOXYzine (hydrOXYzine hydrochloride 50 mg oral tablet) 1 tab(s) by mouth Four (4) times a day as needed for as needed for anxiety Unchanged ibuprofen (ibuprofen 400 mg oral tablet) 1 tab(s) by mouth Every 8 hours Unchanged ibuprofen (ibuprofen 600 mg oral tablet) 1 tab(s) by mouth Every 6 hours as needed for as needed for pain Unchanged lamoTRIgine (LaMICtal 200 mg oral tablet) by mouth Two (2) times a day Unchanged lidocaine topical (lidocaine topical 2% gel) Topical Unchanged lisinopril (lisinopril 20 mg oral tablet) 1 tab(s) by mouth Every day Unchanged montelukast (montelukast 10 mg oral tablet) 1 tab(s) by mouth Once a day Unchanged multivitamin (Neuriva Brain performance Plus) by mouth Once a day Unchanged OLANZapine by mouth Once a day Unchanged omega-3 polyunsaturated fatty acids (Blackwood-3 1050 mg oral capsule) by mouth Three (3) times a day Unchanged omeprazole (NF) (PriLOSEC 20 mg oral delayed release capsule (NF)) 1 cap by mouth Once a day Unchanged oxybutynin (oxybutynin 10 mg/ 24 hr oral tablet, extended release) by mouth Once a day Unchanged prazosin (Minipress 1 mg oral capsule) 1 cap by mouth Once a day Unchanged pregabalin (Lyrica 75 mg oral capsule) 1 cap by mouth Two (2) times a day Unchanged simvastatin (simvastatin 20 mg oral tablet (NF)) 1 tab(s) by mouth Daily at bedtime Unchanged sucralfate (Carafate 1 g oral tablet) 1 tab(s) by mouth Four (4) times a day Unchanged triamcinolone topical (triamcinolone 0.1% topical paste) by mouth Unchanged ubiquinone (Co-Q10 30 mg oral capsule) 1 cap by mouth Three (3) times a day Pharmacy Information [facility]: [id number], [place] [id number] [phone] Please take this list to your next doctor s visit. Bring all medications you take, including over the counter medications, herbals and other supplements with you to your doctor s visit. Patients and families are reminded to discard old lists and to update any records with all medication providers or retail pharmacies. Education Materials [facility] SAME DAY SURGERY DISCHARGE INSTRUCTIONS PLEASE FOLLOW THE INSTRUCTIONS BELOW MARKED WITH AN X: __X_Regular Diet: Start with clear liquids, then soup and crackers. Gradually add other foods unless otherwise instructed by your surgeon __X_Drink extra fluids ACTIVTY: __X_Since you have had anesthetic, it would be advisable not to drive, drink alcohol, or make major decisions over the next 24 hours. You may require more rest tonight and tomorrow __X_Do not drive vehicle while taking narcotics and as directed by your Surgeon ____Restrict activity as follows: ____Do not have sexual intercourse. Nothing in the vagina-No tampons or Douching ____No heavy lifting, pushing, or straining ____Elevate operative limb ____Ice as directed __X_Follow all written and verbal instructions given to you by your Doctor ____Other: BATHING/SHOWERING ____Sponge bathe until office visit. ____Sitting in tub of warm water may relieve discomfort ____May tub bathe ____May shower in 24-48 hours with clean linen unless otherwise instructed by your Doctor DRESSING: ____Keep operative area clean and dry ____Check the operative area for signs of bleeding. Apply pressure to the bleeding site if necessary. ____Change drip pad as needed ____Wear scrotal support for comfort WATCH FOR SIGNS OF INFECTION: (Usually appears 36-48 hours after surgery) Increased temperature (101 degrees Fahrenheit or higher) Redness or swelling Increased pain Foul odor or drainage If you have any questions, please call your doctor at the number listed on your follow-up instructions. Additional Information VACCINATE! IT SAVES LIVES! Members of the community who have not yet received the COVID-19 vaccine and would like to receive it can visit one of [facility] vaccine clinics. There are many vaccine clinic locations within the [facility]. For locations and available times, please visit [email or web address].o hio.gov/. It is important to note that some COVID mobile vaccine clinics are held outdoors and may be canceled in rainy or stormy conditions. To learn more about pediatric vaccinations (ages 5-11), we invite you to visit the [facility] webpage. [email or web address].[email or web address]/p [email or web address] [email or web address] To learn more about the COVID-19 vaccine, we invite you to visit the CDC website for a list of frequently asked questions.https://www.cdc.gov/co ronavirus/2019-ncov/vaccines/faq .html [facility] Patient Portal Access Instructions: Stay connected with your healthcare team and access your personal medical information anytime with the [facility] Patient Portal. Please follow the directions below to create your [facility] account: 1.Access the email account you provided upon registration to the hospital/physician office.2.Look for an invitation email from [facility].3.Open the email and access the invitation link: Accept Invitation to [facility].4.Fill in the required medina to create your account. To access your account, visit [email or web address]. Click the blue button labeled Access Patient Portal and then log in with the username and password that you created in the steps above. You will be able to view your test results, lab results, a summary of your visits, upcoming appointments and more. There is also a convenient messaging option where you can send secure messages to your provider. In addition, you will have the ability to download any documents or summaries to your computer and/or send the information securely to a physician. Remember that your healthcare information is confidential, so carefully consider who you will allow to register on the [facility] Patient Portal for access to your information. You can also access the [facility] Patient Portal on the [facility]. Simply click on Patient Portal and then log into your account. If you would like to receive a full copy of your medical records, please contact the [facility] Medical Records Department by calling [phone], Saturday through Saturday between 8 a.m. and 4:30 p.m. HOW TO SAFELY DISPOSE OF PRESCRIPTION MEDICATIONS Please use one of the following methods to safely dispose of your unused medications. 1.Use a drug disposal kit: the drug disposal pouch allows you to safely discard your old and unused drugs. Ask your nurse to give you one when you are discharged.2.Visit a local take-back location: Many local pharmacies and police departments have programs that collect old and unwanted prescription drugs. Call your local pharmacy or go to http://Little Quest.DeYapa/7E4Cs1m to find one close to you.3.Make use of household items: Use cat litter or old coffee grounds to dispose medications if other options are not available. Mix your drugs with these household products, seal them in an airtight container and throw it into the garbage. Call [facility]: [phone] to be sure your drugs can be disposed of in this way. Some medicines may require a different approach.4.Never flush your medications down the toilet. IF YOU HAVE BEEN PRESCRIBED AN OPIOID FOR PAIN If you have been prescribed an opioid (such as hydrocodone, oxycodone or morphine), it is critical to understand the possible side effects and risks of opioid pain medications. Even when taken as directed, opioids can have several side effects including: Tolerance, meaning you might need to take more of a medication for the same pain relief. Nausea, vomiting and/or constipation. Sleepiness, dizziness, dry mouth, confusion, depression or itching. Physical dependence, meaning you have withdrawal symptoms when a medication is stopped, can develop within a few days. KNOW YOUR RESPONSIBILITIES It is important to know exactly how much and how often to take the opioid pain medications you are prescribed. Never take opioids in higher amounts or more often than prescribed. Do not combine opioids with alcohol or other drugs that cause drowsiness, such as benzodiazepines, also known as benzos, including diazepam and alprazolam, muscle relaxants or sleep aids. Never sell or share prescription opioids. This is illegal. Store opioids in a secure place and out of reach of others (including children, family, friends and visitors). The last page of this document has been signed and retained as a CHART COPY. Signatures Patient Education Materials 1- SDS General Discharge Guidelines (10/26/2022) (CUSTOM) Medication Leaflets My discharge plan and instructions have been reviewed and explained to me and IYARI TINA M understand my current condition and have read and understand these discharge instructions. I have received a written copy of the plan/instructions. If I have questions, I am aware that I should contact my doctor. 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: Date/Time: Relationship to Patient: Witness Name/Signature: Date/Time: [facility] 11-30-2022 Anesthesiology Consult note Patient: CONNIE GREENBERG Age: 62 years Sex: Female : 1960 Associated Diagnoses: None Author: ALEJANDRA DEMPSEY MD Assessment Postanesthesia assessment Vitals: Vital signs from flowsheet : Vital Signs 11/30/2022 13:15 EDT Temperature Temporal Artery 36.4 DegC Heart Rate Monitored 82 bpm Respiratory Rate 16 br/min Systolic Blood Pressure Non-Invasive 151 mmHg HI Diastolic Blood Pressure Non-Invasive 88 mmHg Mean Arterial Pressure (NBP) 108 mmHg 11/30/2022 13:00 EDT Heart Rate Monitored 84 bpm Respiratory Rate 16 br/min 11/30/2022 12:55 EDT Heart Rate Monitored 81 bpm 11/30/2022 12:45 EDT Heart Rate Monitored 79 bpm Respiratory Rate 16 br/min Systolic Blood Pressure Non-Invasive 151 mmHg HI Diastolic Blood Pressure Non-Invasive 81 mmHg Mean Arterial Pressure (NBP) 100 mmHg 11/30/2022 12:30 EDT Temperature Temporal Artery 36.1 DegC Heart Rate Monitored 84 bpm Respiratory Rate 16 br/min Systolic Blood Pressure Non-Invasive 157 mmHg HI Diastolic Blood Pressure Non-Invasive 82 mmHg Mean Arterial Pressure (NBP) 101 mmHg 11/30/2022 12:20 EDT Respiratory Rate - Anes 0 br/min br/min 11/30/2022 12:18 EDT Systolic Blood Pressure Non-Invasive 105 mmHg mmHg Diastolic Blood Pressure Non-Invasive 62 mmHg mmHg 11/30/2022 12:15 EDT Heart Rate Monitored 60 bpm bpm Respiratory Rate - Anes 15 br/min br/min Systolic Blood Pressure Non-Invasive 96 mmHg mmHg Diastolic Blood Pressure Non-Invasive 53 mmHg mmHg 11/30/2022 12:12 EDT Systolic Blood Pressure Non-Invasive 91 mmHg mmHg Diastolic Blood Pressure Non-Invasive 57 mmHg mmHg 11/30/2022 12:10 EDT Heart Rate Monitored 59 bpm bpm Respiratory Rate - Anes 16 br/min br/min 11/30/2022 12:09 EDT Systolic Blood Pressure Non-Invasive 95 mmHg mmHg Diastolic Blood Pressure Non-Invasive 52 mmHg mmHg 11/30/2022 12:06 EDT Systolic Blood Pressure Non-Invasive 94 mmHg mmHg Diastolic Blood Pressure Non-Invasive 53 mmHg mmHg 11/30/2022 12:05 EDT Heart Rate Monitored 60 bpm bpm Respiratory Rate - Anes 15 br/min br/min 11/30/2022 12:03 EDT Systolic Blood Pressure Non-Invasive 96 mmHg mmHg Diastolic Blood Pressure Non-Invasive 52 mmHg mmHg 11/30/2022 12:00 EDT Heart Rate Monitored 61 bpm bpm Respiratory Rate - Anes 16 br/min br/min Systolic Blood Pressure Non-Invasive 96 mmHg mmHg Diastolic Blood Pressure Non-Invasive 55 mmHg mmHg 11/30/2022 11:57 EDT Systolic Blood Pressure Non-Invasive 96 mmHg mmHg Diastolic Blood Pressure Non-Invasive 54 mmHg mmHg 11/30/2022 11:55 EDT Heart Rate Monitored 62 bpm bpm Respiratory Rate - Anes 15 br/min br/min 11/30/2022 11:54 EDT Systolic Blood Pressure Non-Invasive 98 mmHg mmHg Diastolic Blood Pressure Non-Invasive 57 mmHg mmHg 11/30/2022 11:51 EDT Systolic Blood Pressure Non-Invasive 97 mmHg mmHg Diastolic Blood Pressure Non-Invasive 54 mmHg mmHg 11/30/2022 11:50 EDT Heart Rate Monitored 64 bpm bpm Respiratory Rate - Anes 15 br/min br/min 11/30/2022 11:48 EDT Systolic Blood Pressure Non-Invasive 94 mmHg mmHg Diastolic Blood Pressure Non-Invasive 51 mmHg mmHg 11/30/2022 11:45 EDT Heart Rate Monitored 66 bpm bpm Respiratory Rate - Anes 16 br/min br/min Systolic Blood Pressure Non-Invasive 95 mmHg mmHg Diastolic Blood Pressure Non-Invasive 55 mmHg mmHg 11/30/2022 11:42 EDT Systolic Blood Pressure Non-Invasive 95 mmHg mmHg Diastolic Blood Pressure Non-Invasive 51 mmHg mmHg 11/30/2022 11:40 EDT Heart Rate Monitored 69 bpm bpm Respiratory Rate - Anes 15 br/min br/min 11/30/2022 11:39 EDT Systolic Blood Pressure Non-Invasive 100 mmHg mmHg Diastolic Blood Pressure Non-Invasive 54 mmHg mmHg 11/30/2022 11:36 EDT Systolic Blood Pressure Non-Invasive 106 mmHg mmHg Diastolic Blood Pressure Non-Invasive 55 mmHg mmHg 11/30/2022 11:35 EDT Heart Rate Monitored 74 bpm bpm Respiratory Rate - Anes 16 br/min br/min 11/30/2022 11:33 EDT Systolic Blood Pressure Non-Invasive 114 mmHg mmHg Diastolic Blood Pressure Non-Invasive 60 mmHg mmHg 11/30/2022 11:30 EDT Heart Rate Monitored 79 bpm bpm Respiratory Rate - Anes 16 br/min br/min Systolic Blood Pressure Non-Invasive 127 mmHg mmHg Diastolic Blood Pressure Non-Invasive 60 mmHg mmHg 11/30/2022 11:27 EDT Systolic Blood Pressure Non-Invasive 163 mmHg mmHg Diastolic Blood Pressure Non-Invasive 91 mmHg mmHg 11/30/2022 11:25 EDT Heart Rate Monitored 86 bpm bpm Respiratory Rate - Anes 14 br/min br/min 11/30/2022 11:24 EDT Systolic Blood Pressure Non-Invasive 159 mmHg mmHg Diastolic Blood Pressure Non-Invasive 88 mmHg mmHg 11/30/2022 11:21 EDT Systolic Blood Pressure Non-Invasive 149 mmHg mmHg Diastolic Blood Pressure Non-Invasive 88 mmHg mmHg 11/30/2022 11:20 EDT Heart Rate Monitored 82 bpm bpm Respiratory Rate - Anes 11 br/min br/min 11/30/2022 11:18 EDT Systolic Blood Pressure Non-Invasive 148 mmHg mmHg Diastolic Blood Pressure Non-Invasive 87 mmHg mmHg 11/30/2022 11:15 EDT Heart Rate Monitored 77 bpm bpm Respiratory Rate - Anes 10 br/min br/min Systolic Blood Pressure Non-Invasive 111 mmHg mmHg Diastolic Blood Pressure Non-Invasive 83 mmHg mmHg 11/30/2022 11:12 EDT Systolic Blood Pressure Non-Invasive 100 mmHg mmHg Diastolic Blood Pressure Non-Invasive 60 mmHg mmHg 11/30/2022 11:10 EDT Heart Rate Monitored 64 bpm bpm Respiratory Rate - Anes 15 br/min br/min 11/30/2022 11:09 EDT Systolic Blood Pressure Non-Invasive 95 mmHg mmHg Diastolic Blood Pressure Non-Invasive 61 mmHg mmHg 11/30/2022 11:06 EDT Systolic Blood Pressure Non-Invasive 102 mmHg mmHg Diastolic Blood Pressure Non-Invasive 65 mmHg mmHg 11/30/2022 11:05 EDT Temperature (Route Not Specified) 36 DegC DegC Heart Rate Monitored 63 bpm bpm Respiratory Rate - Anes 16 br/min br/min 11/30/2022 11:03 EDT Systolic Blood Pressure Non-Invasive 88 mmHg mmHg Diastolic Blood Pressure Non-Invasive 48 mmHg mmHg 11/30/2022 11:00 EDT Temperature (Route Not Specified) 36 DegC DegC Heart Rate Monitored 64 bpm bpm Respiratory Rate - Anes 15 br/min br/min Systolic Blood Pressure Non-Invasive 88 mmHg mmHg Diastolic Blood Pressure Non-Invasive 53 mmHg mmHg 11/30/2022 10:57 EDT Systolic Blood Pressure Non-Invasive 92 mmHg mmHg Diastolic Blood Pressure Non-Invasive 53 mmHg mmHg 11/30/2022 10:55 EDT Heart Rate Monitored 64 bpm bpm Respiratory Rate - Anes 14 br/min br/min 11/30/2022 10:54 EDT Systolic Blood Pressure Non-Invasive 92 mmHg mmHg Diastolic Blood Pressure Non-Invasive 55 mmHg mmHg 11/30/2022 10:51 EDT Systolic Blood Pressure Non-Invasive 96 mmHg mmHg Diastolic Blood Pressure Non-Invasive 57 mmHg mmHg 11/30/2022 10:50 EDT Heart Rate Monitored 66 bpm bpm Respiratory Rate - Anes 14 br/min br/min 11/30/2022 10:48 EDT Systolic Blood Pressure Non-Invasive 103 mmHg mmHg Diastolic Blood Pressure Non-Invasive 62 mmHg mmHg 11/30/2022 10:45 EDT Temperature (Route Not Specified) 36 DegC DegC Heart Rate Monitored 67 bpm bpm Respiratory Rate - Anes 13 br/min br/min Systolic Blood Pressure Non-Invasive 102 mmHg mmHg Diastolic Blood Pressure Non-Invasive 72 mmHg mmHg 11/30/2022 10:42 EDT Systolic Blood Pressure Non-Invasive 89 mmHg mmHg Diastolic Blood Pressure Non-Invasive 51 mmHg mmHg 11/30/2022 10:40 EDT Heart Rate Monitored 63 bpm bpm Respiratory Rate - Anes 14 br/min br/min 11/30/2022 10:39 EDT Systolic Blood Pressure Non-Invasive 91 mmHg mmHg Diastolic Blood Pressure Non-Invasive 51 mmHg mmHg 11/30/2022 10:36 EDT Systolic Blood Pressure Non-Invasive 95 mmHg mmHg Diastolic Blood Pressure Non-Invasive 55 mmHg mmHg 11/30/2022 10:35 EDT Heart Rate Monitored 66 bpm bpm Respiratory Rate - Anes 15 br/min br/min 11/30/2022 10:33 EDT Systolic Blood Pressure Non-Invasive 94 mmHg mmHg Diastolic Blood Pressure Non-Invasive 61 mmHg mmHg 11/30/2022 10:30 EDT Temperature (Route Not Specified) 36 DegC DegC Heart Rate Monitored 70 bpm bpm Respiratory Rate - Anes 13 br/min br/min Systolic Blood Pressure Non-Invasive 102 mmHg mmHg Diastolic Blood Pressure Non-Invasive 67 mmHg mmHg 11/30/2022 10:27 EDT Systolic Blood Pressure Non-Invasive 97 mmHg mmHg Diastolic Blood Pressure Non-Invasive 71 mmHg mmHg 11/30/2022 10:25 EDT Heart Rate Monitored 69 bpm bpm Respiratory Rate - Anes 13 br/min br/min 11/30/2022 10:24 EDT Systolic Blood Pressure Non-Invasive 89 mmHg mmHg Diastolic Blood Pressure Non-Invasive 53 mmHg mmHg 11/30/2022 10:21 EDT Systolic Blood Pressure Non-Invasive 88 mmHg mmHg Diastolic Blood Pressure Non-Invasive 55 mmHg mmHg 11/30/2022 10:20 EDT Heart Rate Monitored 66 bpm bpm Respiratory Rate - Anes 13 br/min br/min 11/30/2022 10:18 EDT Systolic Blood Pressure Non-Invasive 92 mmHg mmHg Diastolic Blood Pressure Non-Invasive 55 mmHg mmHg 11/30/2022 10:15 EDT Temperature (Route Not Specified) 356 DegC DegC Heart Rate Monitored 67 bpm bpm Respiratory Rate - Anes 14 br/min br/min Systolic Blood Pressure Non-Invasive 91 mmHg mmHg Diastolic Blood Pressure Non-Invasive 55 mmHg mmHg 11/30/2022 10:12 EDT Systolic Blood Pressure Non-Invasive 97 mmHg mmHg Diastolic Blood Pressure Non-Invasive 56 mmHg mmHg 11/30/2022 10:10 EDT Heart Rate Monitored 72 bpm bpm Respiratory Rate - Anes 13 br/min br/min 11/30/2022 10:09 EDT Systolic Blood Pressure Non-Invasive 104 mmHg mmHg Diastolic Blood Pressure Non-Invasive 65 mmHg mmHg 11/30/2022 10:08 EDT Systolic Blood Pressure Non-Invasive 105 mmHg mmHg Diastolic Blood Pressure Non-Invasive 69 mmHg mmHg 11/30/2022 10:06 EDT Systolic Blood Pressure Non-Invasive 97 mmHg mmHg Diastolic Blood Pressure Non-Invasive 56 mmHg mmHg 11/30/2022 10:05 EDT Heart Rate Monitored 73 bpm bpm Respiratory Rate - Anes 12 br/min br/min 11/30/2022 10:03 EDT Systolic Blood Pressure Non-Invasive 109 mmHg mmHg Diastolic Blood Pressure Non-Invasive 65 mmHg mmHg 11/30/2022 10:00 EDT Temperature (Route Not Specified) 36 DegC DegC Heart Rate Monitored 76 bpm bpm Respiratory Rate - Anes 12 br/min br/min 11/30/2022 9:59 EDT Systolic Blood Pressure Non-Invasive 110 mmHg mmHg Diastolic Blood Pressure Non-Invasive 73 mmHg mmHg 11/30/2022 9:57 EDT Systolic Blood Pressure Non-Invasive 98 mmHg mmHg Diastolic Blood Pressure Non-Invasive 58 mmHg mmHg 11/30/2022 9:55 EDT Heart Rate Monitored 74 bpm bpm Respiratory Rate - Anes 11 br/min br/min 11/30/2022 9:54 EDT Systolic Blood Pressure Non-Invasive 96 mmHg mmHg Diastolic Blood Pressure Non-Invasive 60 mmHg mmHg 11/30/2022 9:51 EDT Systolic Blood Pressure Non-Invasive 94 mmHg mmHg Diastolic Blood Pressure Non-Invasive 54 mmHg mmHg 11/30/2022 9:50 EDT Heart Rate Monitored 67 bpm bpm Respiratory Rate - Anes 11 br/min br/min 11/30/2022 9:47 EDT Systolic Blood Pressure Non-Invasive 90 mmHg mmHg Diastolic Blood Pressure Non-Invasive 51 mmHg mmHg 11/30/2022 9:45 EDT Temperature (Route Not Specified) 36 DegC DegC Heart Rate Monitored 56 bpm bpm Respiratory Rate - Anes 11 br/min br/min Systolic Blood Pressure Non-Invasive 86 mmHg mmHg Diastolic Blood Pressure Non-Invasive 48 mmHg mmHg 11/30/2022 9:42 EDT Systolic Blood Pressure Non-Invasive 90 mmHg mmHg Diastolic Blood Pressure Non-Invasive 50 mmHg mmHg 11/30/2022 9:40 EDT Heart Rate Monitored 58 bpm bpm Respiratory Rate - Anes 10 br/min br/min 11/30/2022 9:39 EDT Systolic Blood Pressure Non-Invasive 100 mmHg mmHg Diastolic Blood Pressure Non-Invasive 55 mmHg mmHg 11/30/2022 9:36 EDT Systolic Blood Pressure Non-Invasive 100 mmHg mmHg Diastolic Blood Pressure Non-Invasive 58 mmHg mmHg 11/30/2022 9:35 EDT Heart Rate Monitored 60 bpm bpm Respiratory Rate - Anes 10 br/min br/min 11/30/2022 9:33 EDT Systolic Blood Pressure Non-Invasive 106 mmHg mmHg Diastolic Blood Pressure Non-Invasive 70 mmHg mmHg 11/30/2022 9:30 EDT Heart Rate Monitored 69 bpm bpm Respiratory Rate - Anes 10 br/min br/min Systolic Blood Pressure Non-Invasive 146 mmHg mmHg Diastolic Blood Pressure Non-Invasive 79 mmHg mmHg 11/30/2022 9:27 EDT Systolic Blood Pressure Non-Invasive 152 mmHg mmHg Diastolic Blood Pressure Non-Invasive 93 mmHg mmHg 11/30/2022 6:51 EDT Temperature Temporal Artery 35.8 DegC Peripheral Pulse Rate 67 bpm Respiratory Rate 16 br/min Systolic Blood Pressure Non-Invasive 128 mmHg Diastolic Blood Pressure Non-Invasive 81 mmHg . Mental status: at preoperative baseline. Respiratory function: respirations are non-labored. Respiratory support: none. CV function: Normal rate, Regular rhythm. Cardiovascular support: none. Pain: Post op control see nursing medication documentation. Nausea status: denies nausea. Postoperative hydration status: euvolemic. Digitally Signed by ALEJANDRA DEMPSEY MD on 11/30/2022 01:45 PM [facility] 11-30-2022 Note ORIGINAL EXAMINATION: SPOT FLUOROSCOPIC IMAGES 11/30/2022 12:03 pm TECHNIQUE: Fluoroscopy was provided by the radiology department for procedure. Radiologist was not present during examination. FLUOROSCOPY DOSE AND TYPE: Radiation Exposure Index: 4.92 mGy air kerma., fluoroscopy time was 3 minutes. 56 intraoperative images obtained. COMPARISON: None HISTORY: ORDERING SYSTEM PROVIDED HISTORY: Reason for Exam: FOOT PAIN Intraprocedural imaging. FINDINGS: Spot intraoperative images are obtained demonstrating placement of surgical plates across the 1st, 2nd and 3rd tarsometatarsal joints. An additional screw was placed from the 1st metatarsal base to the middle cuneiform.. IMPRESSION: Intraprocedural fluoroscopic spot images as above. See separate procedure report for more information. Interpreted by: Raz Leavitt MD Preliminary Report By: Raz Leavitt MD Electronically signed By Raz Leavitt MD Dictated Date: 11/30/2022 12:17:52 PM Prelim Date: 11/30/2022 12:19:24 PM Sign Date: 11/30/2022 12:19:24 PM [facility]ing [facility] 11-30-2022 Anesthesiology Progress note Patient: CONNIE GREENBERG Age: 62 years Sex: Female : 1960 Associated Diagnoses: None Author: RAZ WOOD MD Preoperative Information NPO > 8 hours Anesthesia history Patient's history: negative. Family's history: negative. Health Status Allergies: Allergic Reactions (Selected) NKA, Allergies (1) ActiveReaction NKANone Documented Current medications: (Selected) Inpatient Medications Ordered LR 1,000 mL: 20 mL/hr, Intravenous Documented Medications Documented Abilify 10 mg oral tablet: 10 mg, 1 tab(s), Oral, qDay, 30 tab(s), 0 Refill(s) Carafate 1 g oral tablet: 1 gram(s), 1 tab(s), Oral, QID, 0 Refill(s) Co-Q10 30 mg oral capsule: 30 mg, 1 cap(s), Oral, TID, 0 Refill(s) Cymbalta 60 mg oral delayed release capsule: 60 mg, 1 cap(s), Oral, BID, 0 Refill(s) Evening [place] Oil 1000 mg oral capsule: See Instructions, 1 cap(s) Oral Daily, 0 Refill(s) Flexeril 10 mg oral tablet: 10 mg, 1 tab(s), Oral, BID, PRN: as needed for muscle spasm, 0 Refill(s) KlonoPIN 0.5 mg oral tablet: 0.5 mg, 1 tab(s), Oral, TID, 0 Refill(s) LaMICtal 200 mg oral tablet: mg, tab(s), Oral, BID, 0 Refill(s) Lyrica 75 mg oral capsule: 75 mg, 1 cap(s), Oral, BID, 0 Refill(s) Magnesium complex 400 m Refill(s) Minipress 1 mg oral capsule: 1 mg, 1 cap(s), Oral, qDay, 0 Refill(s) Neuriva Brain performance Plus: Oral, qDay, 0 Refill(s) OLANZapine: Oral, qDay, 0 Refill(s) Blackwood-3 1050 mg oral capsule: Oral, TID, 0 Refill(s) PriLOSEC 20 mg oral delayed release capsule (NF): 20 mg, 1 cap(s), Oral, qDay, 0 Refill(s) Qulipta 60 mg oral tablet: 60 mg, 1 tab(s), Oral, qDay, 0 Refill(s) Symbicort 160 mcg-4.5 mcg/inh Inhaler: 2 puff(s), Inhalation, BID, 0 Refill(s) Ventolin MDI HFA: 2 puff(s), Inhalation, QID, PRN: as needed for wheezing, 0 Refill(s) Vitamin B12: 500 mcg, Oral, qDay, 0 Refill(s) Vitamin D3 1000 intl units oral tablet: 1,000 unit(s), 1 tab(s), Oral, Daily, 0 Refill(s) aspirin: 81 mg, Oral, qDay, 0 Refill(s) chlorproMAZINE (Thorazine): 100 mg, Oral, qDay, 0 Refill(s) chlorproMAZINE (Thorazine): 25 mg, Oral, BID, 0 Refill(s) citalopram: 60 mg, Oral, qDay, 0 Refill(s) diclofenac 1% topical gel: gram(s), Topical, QID, 0 Refill(s) doxepin 10 mg oral capsule: mg, cap(s), Oral, TID, 0 Refill(s) ethinyl estradiol-etonogestrel 0.015 mg-0.120 mg/24 hours vaginal rin EA, Vaginal, q4wk, 0 Refill(s) famotidine 10 mg oral tablet: mg, tab(s), Oral, Once, 0 Refill(s) gabapentin 800 mg oral tablet: 800 mg, 1 tab(s), Oral, TID, 90 tab(s), 0 Refill(s) hydrOXYzine hydrochloride 50 mg oral tablet: 50 mg, 1 tab(s), Oral, QID, PRN: as needed for anxiety, 40 tab(s), 0 Refill(s) ibuprofen 400 mg oral tablet: 400 mg, 1 tab(s), Oral, q8h, 0 Refill(s) ibuprofen 600 mg oral tablet: 600 mg, 1 tab(s), Oral, q6hr, PRN: as needed for pain, 0 Refill(s) lidocaine topical 2% gel: Topical, 0 Refill(s) lisinopril 20 mg oral tablet: 20 mg, 1 tab(s), Oral, Daily, 0 Refill(s) montelukast 10 mg oral tablet: 10 mg, 1 tab(s), Oral, qDay, 0 Refill(s) oxybutynin 10 mg/24 hr oral tablet, extended release: mg, tab(s), Oral, qDay, 0 Refill(s) simvastatin 20 mg oral tablet (NF): 20 mg, 1 tab(s), Oral, qHS, 0 Refill(s) triamcinolone 0.1% topical paste: Oral, 0 Refill(s), Medications (1) Active Scheduled: (0) Continuous: (1) Lactated Ringers 1,000 mL 1,000 mL, Intravenous, 20 mL/hr PRN: (0) Problem list: Medical Anxiety / SNOMED CT 04399145 / Confirmed Bipolar disorder / SNOMED CT 18119497 / Confirmed Chronic back pain / SNOMED CT 711603136 / Confirmed Depression / SNOMED CT 64584311 / Confirmed Hyperlipidemia / SNOMED CT 954865263 / Confirmed Hypertension / SNOMED CT 0130412939 / Confirmed Sciatic nerve pain / SNOMED CT 77706978 / Confirmed, Active Problems (7) Anxiety Bipolar disorder Chronic back pain Depression Hyperlipidemia Hypertension Sciatic nerve pain Histories Past Medical History: Active Hypertension (2588663974) Hyperlipidemia (730977494) Anxiety (65902284) Bipolar disorder (48460530) Depression (44803044) Chronic back pain (259906963) Sciatic nerve pain (93501478) Family History: Patient was adopted. Asthma Daughter Son Mental illness Son Procedure history: Endometrial ablation (721355508) in 1997 at 37 Years. section (50701226) in 1990 at 30 Years. Tonsillectomy (927612761) in 1967 at 7 Years. Hysterectomy (397791030). 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 Physical Examination Vital Signs(last 24 hrs) Last Charted Resp Rate 16 br/min (NOV 30 06:51) TGL591 mmHg (NOV 30 06:51) DBP81 mmHg (NOV 30 06:51) Measurements from flowsheet : Measurements 11/30/2022 6:51 EDT Height 157.5 cm Height in inches 62 inch(es) Admission Weight 71.8 kg Weight Lbs 158 lb Weight Method Actual [place] Body Weight 50.12 kg Admission Body Mass Index 28.94 m2 General: Alert and oriented. Airway: Normal neck range of motion. Mallampati classification: II (soft palate, fauces, uvula visible). Dentition Evaluation: Intact, Missing teeth, Dentures, lower, Dentures, upper. Respiratory: Respirations are non-labored. Neurologic: Alert, Oriented. Review / Management Results review: Labs (Last four charted values) WBC 6.3(NOV 30) Hgb L 11.2(NOV 30) Hct L 33.0(NOV 30) Plt 291(NOV 30) Na L 133(NOV 30) K 4.0(NOV 30) CO2 27(NOV 30) Cl 100(NOV 30) Cr 0.72(NOV 30) BUN 12.0(NOV 30) Glucose 107(NOV 30) Ca 9.1(NOV 30) . Assessment and Plan [place] [employer] Anesthesiologists (ASA) physical status classification: Class II. Anesthetic Preoperative Plan Premedication: intravenous. Anesthetic technique: General. Induction: intravenously. Maintenance airway: Laryngeal mask airway. Risks discussed: nausea, vomiting, sore throat, dental injury, allergic reaction, serious complications. Informed consent: signed by patient. Notes: HTN, Anxiety, GERD, TIA (last ~ 8 yeras ago), Asthma 09/13/22 EKG NSR. Digitally Signed by RAZ WOOD MD on 11/30/2022 08:04 AM [facility] 10-31-2022 Note HNO ID: [id number] Author: Sheela Champion APRN.[facility] Service: ? Author Type: Nurse Practitioner Type: Progress Notes Filed: 11/07/2022 2:27 PM Note Text: This note was created using NoteWriter. Subjective Connie Greenberg is a 62 year old female. 62 year old female with no PMH presents for illness. Acute onset 10 days ago +cough +productive . +sore throat +ear pain +fatigue Denies SOB or dyspnea. Denies tobacco usage. Has tried OTC medicines without relief. The history is provided by the patient. No second language tutor was used. Cough This is a new problem. The current episode started more than 1 week ago. The problem occurs constantly. The problem has not changed since onset.The cough is Productive of sputum. Associated symptoms include ear pain, rhinorrhea and sore throat. Pertinent negatives include no chest pain, no chills, no sweats, no headaches and no eye redness. She is not a smoker. Her past medical history does not include bronchitis, pneumonia, bronchiectasis, COPD, emphysema or asthma. PAST MEDICAL HISTORY Diagnosis Date Anxiety and depression Arthritis Asthma Bipolar disorder (HCC) CVA (cerebral vascular accident) (HCC) Diarrhea, functional GERD (gastroesophageal reflux disease) Hiatal hernia High cholesterol Hypertension Impaired cognition Irritable bowel syndrome with both constipation and diarrhea Sleep apnea TIA (transient ischemic attack) 2016 PAST SURGICAL HISTORY Procedure Laterality Date BX OF BREAST; INCISIONAL Left 1992 benign ESOPHAGEAL MANOMETRY 03/10/2021 30% weak AND 30% ineffective swallows; Dr. Gonzales FOOT SURGERY HX Left 11/23/2020 mid-foot arthrodesis, great toe tendon release and bunionectomy; Dr. Maravilla HYSTERECTOMY HX ALLERGIES Bee Venom Protein (Honey Bee) MEDICATIONS escitalopram oxalate (LEXAPRO) 10 mg tablet escitalopram 10 mg tablet TAKE 1 TABLET BY MOUTH DAILY OTC PRODUCT Prevajen oral Extra strength ADVAIR DISKUS 250-50 mcg/dose inhaler INHALE one INHALATION TWICE DAILY nystatin (MYCOSTATIN) 100,000 unit/mL suspension Take 5 mL by mouth four times daily. 1tsp swish in mouth for several minutes, then swallow (or expectorate) 4 times daily until gone. oxyCODONE-acetaminophen (PERCOCET) 5-325 mg tablet Take 1-2 tablets by mouth every 4 hours as needed. gabapentin (NEURONTIN) 800 mg tablet Take 800 mg by mouth three times daily. lamoTRIgine (LAMICTAL) 150 mg tablet Take 150 mg by mouth twice daily. lisinopril (ZESTRIL, PRINIVIL) 10 mg tablet Take 10 mg by mouth once daily. traZODone (DESYREL) 50 mg tablet Take 100 mg by mouth daily at bedtime. melatonin 10 mg tab Take by mouth daily at bedtime. 10-20 mg OLANZapine (ZYPREXA) 10 mg tablet Take 10 mg by mouth daily at bedtime. hydrOXYzine pamoate (VISTARIL) 50 mg capsule Take 50 mg by mouth three times daily as needed. lidocaine (LIDOCARE TOPICAL) Apply to affected area as needed. eluxadoline (VIBERZI) 100 mg tab Take 50 mg by mouth as needed (diarrhea). ondansetron (ZOFRAN) 4 mg tablet Take by mouth every 8 hours as needed for nausea/vomiting. cyclobenzaprine (FLEXERIL) 10 mg tablet Take by mouth as needed. Apple Cider Vinegar 500 mg tab Take by mouth once daily. fluticasone propion-salmeterol (AIRDUO DIGIHALER) 113 mcg-14 mcg/actuation digihaler Inhale 1 Inhalation as instructed twice daily. calcium carbonate (TUMS ORAL) Take by mouth as needed. naproxen sodium 220 mg cap Take by mouth as needed (pain). 1-2 tablets acetaminophen 650 mg CR tablet Take 1,300 mg by mouth every 8 hours as needed for pain. COQ10, UBIQUINOL, ORAL Take 200 mg by mouth once daily. pyridoxine, vitamin B6, (VITAMIN B6) 100 mg tablet Take 100 mg by mouth once daily. cyanocobalamin (VITAMIN B-12) 500 mcg tablet Take by mouth once daily. Cholecalciferol, Vitamin D3, 25 mcg (1,000 unit) cap Take 1,000 Units by mouth once daily. multivit with calcium,iron,min (WOMEN'S MULTIPLE VITAMINS ORAL) Take by mouth once daily. TURMERIC ORAL Take 500 mg by mouth once daily. oxybutynin ER (DITROPAN XL) 15 mg 24 hr Extended Rel Tab Take 15 mg by mouth once daily. estradiol 0.01% estriol 0.01% topical cream (CPD) Apply to affected area daily at bedtime. aspirin 81 mg chewable tablet Take 81 mg by mouth once daily. albuterol HFA (VENTOLIN HFA) 90 mcg/actuation inhaler Inhale 2 Puffs as instructed every 4 hours as needed for Wheezing/Shortness of Breath. montelukast (SINGULAIR) 10 mg tablet Take 10 mg by mouth daily at bedtime. Omeprazole 40 mg capsule TAKE ONE CAPSULE AT 5PM prazosin (MINIPRESS) 1 mg cap Take 1 mg by mouth daily at bedtime. doxycycline (VIBRA-TABS) 100 mg tablet Take 1 tablet by mouth twice daily for 10 days. benzonatate (TESSALON PERLES) 100 mg capsule Take 1 capsule by mouth three times daily as needed for cough. benzonatate (TESSALON PERLES) 100 mg capsule Take 2 capsules by mouth three times daily as needed. (Patient (more content not included)... [facility] 10-31-2022 History of Presen t illness Narrative This note was created using Hartman Wrightriter. Subjective Connie Greenberg is a 62 year old female. Acute onset 10 days ago +cough +sore throat +ear pain Cough Review of Systems Respiratory: Positive for cough. Objective BP 136/82 Pulse 79 Temp 36.9 C (98.4 F) (Tympanic) Resp 18 Wt 68 kg (150 lb) SpO2 97% BMI 27.44 kg/m Physical Exam Assessment and Plan documented in this encounter [facility] 05-07-2022 Note HNO ID: [id number] Author: Gordon Vance APRN.[employer]GER Service: ? Author Type: Nurse Practitioner Type: Progress Notes Filed: 05/07/2022 2:20 PM Note Text: Subjective HPI Nontoxic-appearing female presents urgent care chief complaint sore throat headache. Duration of symptoms 2 days. Associated symptoms listed above. Most prominent symptom today is sore throat. States headache is transient. No known sick contacts. Recently did return home from [place]. Has not used any OTC medications. Denies any trismus difficulty swallowing difficulty in secretions. Denies any fever body aches chills productive cough chest pain shortness of breath pleuritic pain hemoptysis nausea vomiting abdominal pain change in bowel or bladder habits. Past medical history prescription medication use and allergies reviewed. .Patient presents with: Sore Throat: CAS[place], white spots in throat x2 days PAST MEDICAL HISTORY Diagnosis Date Anxiety and depression Arthritis Asthma Bipolar disorder (HCC) CVA (cerebral vascular accident) (HCC) Diarrhea, functional GERD (gastroesophageal reflux disease) Hiatal hernia High cholesterol Hypertension Impaired cognition Irritable bowel syndrome with both constipation and diarrhea Sleep apnea TIA (transient ischemic attack) 2016 PAST SURGICAL HISTORY Procedure Laterality Date BX OF BREAST; INCISIONAL Left 1992 benign ESOPHAGEAL MANOMETRY 03/10/2021 30% weak AND 30% ineffective swallows; Dr. Gonzales FOOT SURGERY HX Left 11/23/2020 mid-foot arthrodesis, great toe tendon release and bunionectomy; Dr. Maravilla HYSTERECTOMY HX 1990s ALLERGIES Bee Venom Protein (Honey Bee) MEDICATIONS escitalopram oxalate (LEXAPRO) 10 mg tablet escitalopram 10 mg tablet TAKE 1 TABLET BY MOUTH DAILY OTC PRODUCT Prevajen oral Extra strength ADVAIR DISKUS 250-50 mcg/dose inhaler INHALE one INHALATION TWICE DAILY nystatin (MYCOSTATIN) 100,000 unit/mL suspension Take 5 mL by mouth four times daily. 1tsp swish in mouth for several minutes, then swallow (or expectorate) 4 times daily until gone. benzonatate (TESSALON PERLES) 100 mg capsule Take 2 capsules by mouth three times daily as needed. (Patient not taking: Reported on 04/06/2022) oxyCODONE-acetaminophen (PERCOCET) 5-325 mg tablet Take 1-2 tablets by mouth every 4 hours as needed. gabapentin (NEURONTIN) 800 mg tablet Take 800 mg by mouth three times daily. lamoTRIgine (LAMICTAL) 150 mg tablet Take 150 mg by mouth twice daily. lisinopril (ZESTRIL, PRINIVIL) 10 mg tablet Take 10 mg by mouth once daily. traZODone (DESYREL) 50 mg tablet Take 100 mg by mouth daily at bedtime. melatonin 10 mg tab Take by mouth daily at bedtime. 10-20 mg OLANZapine (ZYPREXA) 10 mg tablet Take 10 mg by mouth daily at bedtime. ARIPiprazole (ABILIFY) 2 mg tablet Take 2 mg by mouth daily at bedtime. (Patient not taking: Reported on 04/06/2022) carBAMazepine ER (CARBATROL) 200 mg 12 hr capsule Take 400 mg by mouth daily at bedtime. (Patient not taking: Reported on 04/06/2022) hydrOXYzine pamoate (VISTARIL) 50 mg capsule Take 50 mg by mouth three times daily as needed. lidocaine (LIDOCARE TOPICAL) Apply to affected area as needed. eluxadoline (VIBERZI) 100 mg tab Take 50 mg by mouth as needed (diarrhea). ondansetron (ZOFRAN) 4 mg tablet Take by mouth every 8 hours as needed for nausea/vomiting. cyclobenzaprine (FLEXERIL) 10 mg tablet Take by mouth as needed. Apple Cider Vinegar 500 mg tab Take by mouth once daily. fluticasone propion-salmeterol (AIRDUO DIGIHALER) 113 mcg-14 mcg/actuation digihaler Inhale 1 Inhalation as instructed twice daily. calcium carbonate (TUMS ORAL) Take by mouth as needed. naproxen sodium 220 mg cap Take by mouth as needed (pain). 1-2 tablets acetaminophen 650 mg CR tablet Take 1,300 mg by mouth every 8 hours as needed for pain. COQ10, UBIQUINOL, ORAL Take 200 mg by mouth once daily. pyridoxine, vitamin B6, (VITAMIN B6) 100 mg tablet Take 100 mg by mouth once daily. cyanocobalamin (VITAMIN B-12) 500 mcg tablet Take by mouth once daily. Cholecalciferol, Vitamin D3, 25 mcg (1,000 unit) cap Take 1,000 Units by mouth once daily. multivit with calcium,iron,min (WOMEN'S MULTIPLE VITAMINS ORAL) Take by mouth once daily. TURMERIC ORAL Take 500 mg by mouth once daily. oxybutynin ER (DITROPAN XL) 15 mg 24 hr Extended Rel Tab Take 15 mg by mouth once daily. estradiol 0.01% estriol 0.01% topical cream (CPD) Apply to affected area daily at bedtime. aspirin 81 mg chewable tablet Take 81 mg by mouth once daily. albuterol HFA (VENTOLIN HFA) 90 mcg/actuation inhaler Inhale 2 Puffs as instructed every 4 hours as needed for Wheezing/Shortness of Breath. montelukast (SINGULAIR) 10 mg tablet Take 10 mg by mouth daily at bedtime. Omeprazole 40 mg capsule TAKE ONE CAPSULE AT 5PM prazosin (MINIPRESS) 1 mg cap Take 1 mg by mouth daily at bedtime. simvastatin (ZOCOR) 20 mg tablet Take 20 mg by mouth daily (more content not included)... [facility] 04-06-2022 Note HNO ID: [id number] Author: ZHANNA Holly Service: ? Author Type: Physician [place] Type: Progress Notes Filed: 04/06/2022 5:37 PM Note Text: This note was created using Hartman Wrightriter. Ivan Greenberg is a 61 year old female. HPI 61-year-old female presents for fissures in the mouth and rash in the mouth. Patient states that she recently finished an antibiotic and steroids about a week ago. She states that she also recently started Advair. She states she has been rinsing out her mouth after using the Advair. She states that she has been having pain in her mouth for about a week. She noticed she had a cut in her tongue. She is unable to wear her dentures due to soreness. She does have some white patches in the back of her throat. She is still able to eat and drink. No fevers. No cough. PAST MEDICAL HISTORY Diagnosis Date Anxiety and depression Arthritis Asthma Bipolar disorder (HCC) CVA (cerebral vascular accident) (HCC) Diarrhea, functional GERD (gastroesophageal reflux disease) Hiatal hernia High cholesterol Hypertension Impaired cognition Irritable bowel syndrome with both constipation and diarrhea Sleep apnea TIA (transient ischemic attack) 2016 PAST SURGICAL HISTORY Procedure Laterality Date BX OF BREAST; INCISIONAL Left 1992 benign ESOPHAGEAL MANOMETRY 03/10/2021 30% weak AND 30% ineffective swallows; Dr. Gonzales FOOT SURGERY HX Left 11/23/2020 mid-foot arthrodesis, great toe tendon release and bunionectomy; Dr. Maravilla HYSTERECTOMY HX ALLERGIES Bee Venom Protein (Honey Bee) MEDICATIONS ADVAIR DISKUS 250-50 mcg/dose inhaler INHALE one INHALATION TWICE DAILY oxyCODONE-acetaminophen (PERCOCET) 5-325 mg tablet Take 1-2 tablets by mouth every 4 hours as needed. gabapentin (NEURONTIN) 800 mg tablet Take 800 mg by mouth three times daily. lamoTRIgine (LAMICTAL) 150 mg tablet Take 150 mg by mouth twice daily. lisinopril (ZESTRIL, PRINIVIL) 10 mg tablet Take 10 mg by mouth once daily. traZODone (DESYREL) 50 mg tablet Take 100 mg by mouth daily at bedtime. melatonin 10 mg tab Take by mouth daily at bedtime. 10-20 mg OLANZapine (ZYPREXA) 10 mg tablet Take 10 mg by mouth daily at bedtime. hydrOXYzine pamoate (VISTARIL) 50 mg capsule Take 50 mg by mouth three times daily as needed. lidocaine (LIDOCARE TOPICAL) Apply to affected area as needed. eluxadoline (VIBERZI) 100 mg tab Take 50 mg by mouth as needed (diarrhea). ondansetron (ZOFRAN) 4 mg tablet Take by mouth every 8 hours as needed for nausea/vomiting. cyclobenzaprine (FLEXERIL) 10 mg tablet Take by mouth as needed. Apple Cider Vinegar 500 mg tab Take by mouth once daily. fluticasone propion-salmeterol (AIRDUO DIGIHALER) 113 mcg-14 mcg/actuation digihaler Inhale 1 Inhalation as instructed twice daily. calcium carbonate (TUMS ORAL) Take by mouth as needed. naproxen sodium 220 mg cap Take by mouth as needed (pain). 1-2 tablets COQ10, UBIQUINOL, ORAL Take 200 mg by mouth once daily. pyridoxine, vitamin B6, (VITAMIN B6) 100 mg tablet Take 100 mg by mouth once daily. cyanocobalamin (VITAMIN B-12) 500 mcg tablet Take by mouth once daily. Cholecalciferol, Vitamin D3, 25 mcg (1,000 unit) cap Take 1,000 Units by mouth once daily. multivit with calcium,iron,min (WOMEN'S MULTIPLE VITAMINS ORAL) Take by mouth once daily. TURMERIC ORAL Take 500 mg by mouth once daily. oxybutynin ER (DITROPAN XL) 15 mg 24 hr Extended Rel Tab Take 15 mg by mouth once daily. estradiol 0.01% estriol 0.01% topical cream (CPD) Apply to affected area daily at bedtime. aspirin 81 mg chewable tablet Take 81 mg by mouth once daily. albuterol HFA (VENTOLIN HFA) 90 mcg/actuation inhaler Inhale 2 Puffs as instructed every 4 hours as needed for Wheezing/Shortness of Breath. montelukast (SINGULAIR) 10 mg tablet Take 10 mg by mouth daily at bedtime. Omeprazole 40 mg capsule TAKE ONE CAPSULE AT 5PM prazosin (MINIPRESS) 1 mg cap Take 1 mg by mouth daily at bedtime. simvastatin (ZOCOR) 20 mg tablet Take 20 mg by mouth daily at bedtime. nystatin (MYCOSTATIN) 100,000 unit/mL suspension Take 5 mL by mouth four times daily. 1tsp swish in mouth for several minutes, then swallow (or expectorate) 4 times daily until gone. benzonatate (TESSALON PERLES) 100 mg capsule Take 2 capsules by mouth three times daily as needed. (Patient not taking: Reported on 04/06/2022) ARIPiprazole (ABILIFY) 2 mg tablet Take 2 mg by mouth daily at bedtime. (Patient not taking: Reported on 04/06/2022) carBAMazepine ER (CARBATROL) 200 mg 12 hr capsule Take 400 mg by mouth daily at bedtime. (Patient not taking: Reported on 04/06/2022) acetaminophen 650 mg CR tablet Take 1,300 mg by mouth every 8 hours as needed for pain. FAMILY HISTORY Adopted: Yes Social History Tobacco Use Smoking status: Never Smokeless tobacco: Never Substance Use Topics Alcohol use: Yes Comment: 3 times weekly Drug use: Never Revi (more content not included)... [facility] 04-06-2022 History of Presen t illness Narrative This note was created using [employer]. Subjective Connie Greenberg is a 61 year old female. HPI 61-year-old female presents for fissures in the mouth and rash in the mouth. Patient states that she recently finished an antibiotic and steroids about a week ago. She states that she also recently started Advair. She states she has been rinsing out her mouth after using the Advair. She states that she has been having pain in her mouth for about a week. She noticed she had a cut in her tongue. She is unable to wear her dentures due to soreness. She does have some white patches in the back of her throat. She is still able to eat and drink. No fevers. No cough. PAST MEDICAL HISTORY Diagnosis Date Anxiety and depression Arthritis Asthma Bipolar disorder (HCC) CVA (cerebral vascular accident) (HCC) Diarrhea, functional GERD (gastroesophageal reflux disease) Hiatal hernia High cholesterol Hypertension Impaired cognition Irritable bowel syndrome with both constipation and diarrhea Sleep apnea TIA (transient ischemic attack) 2016 PAST SURGICAL HISTORY Procedure Laterality Date BX OF BREAST; INCISIONAL Left 1992 benign ESOPHAGEAL MANOMETRY 03/10/2021 30% weak & 30% ineffective swallows; Dr. Gonzales FOOT SURGERY HX Left 11/23/2020 mid-foot arthrodesis, great toe tendon release and bunionectomy; Dr. Maravilla HYSTERECTOMY HX 1990s ALLERGIES Bee Venom Protein (Honey Bee) MEDICATIONS ADVAIR DISKUS 250-50 mcg/dose inhaler INHALE one INHALATION TWICE DAILY oxyCODONE-acetaminophen (PERCOCET) 5-325 mg tablet Take 1-2 tablets by mouth every 4 hours as needed. gabapentin (NEURONTIN) 800 mg tablet Take 800 mg by mouth three times daily. lamoTRIgine (LAMICTAL) 150 mg tablet Take 150 mg by mouth twice daily. lisinopril (ZESTRIL, PRINIVIL) 10 mg tablet Take 10 mg by mouth once daily. traZODone (DESYREL) 50 mg tablet Take 100 mg by mouth daily at bedtime. melatonin 10 mg tab Take by mouth daily at bedtime. 10-20 mg OLANZapine (ZYPREXA) 10 mg tablet Take 10 mg by mouth daily at bedtime. hydrOXYzine pamoate (VISTARIL) 50 mg capsule Take 50 mg by mouth three times daily as needed. lidocaine (LIDOCARE TOPICAL) Apply to affected area as needed. eluxadoline (VIBERZI) 100 mg tab Take 50 mg by mouth as needed (diarrhea). ondansetron (ZOFRAN) 4 mg tablet Take by mouth every 8 hours as needed for nausea/vomiting. cyclobenzaprine (FLEXERIL) 10 mg tablet Take by mouth as needed. Apple Cider Vinegar 500 mg tab Take by mouth once daily. fluticasone propion-salmeterol (AIRDUO DIGIHALER) 113 mcg-14 mcg/actuation digihaler Inhale 1 Inhalation as instructed twice daily. calcium carbonate (TUMS ORAL) Take by mouth as needed. naproxen sodium 220 mg cap Take by mouth as needed (pain). 1-2 tablets COQ10, UBIQUINOL, ORAL Take 200 mg by mouth once daily. pyridoxine, vitamin B6, (VITAMIN B6) 100 mg tablet Take 100 mg by mouth once daily. cyanocobalamin (VITAMIN B-12) 500 mcg tablet Take by mouth once daily. Cholecalciferol, Vitamin D3, 25 mcg (1,000 unit) cap Take 1,000 Units by mouth once daily. multivit with calcium,iron,min (WOMEN'S MULTIPLE VITAMINS ORAL) Take by mouth once daily. TURMERIC ORAL Take 500 mg by mouth once daily. oxybutynin ER (DITROPAN XL) 15 mg 24 hr Extended Rel Tab Take 15 mg by mouth once daily. estradiol 0.01% estriol 0.01% topical cream (CPD) Apply to affected area daily at bedtime. aspirin 81 mg chewable tablet Take 81 mg by mouth once daily. albuterol HFA (VENTOLIN HFA) 90 mcg/actuation inhaler Inhale 2 Puffs as instructed every 4 hours as needed for Wheezing/Shortness of Breath. montelukast (SINGULAIR) 10 mg tablet Take 10 mg by mouth daily at bedtime. Omeprazole 40 mg capsule TAKE ONE CAPSULE AT 5PM prazosin (MINIPRESS) 1 mg cap Take 1 mg by mouth daily at bedtime. simvastatin (ZOCOR) 20 mg tablet Take 20 mg by mouth daily at bedtime. nystatin (MYCOSTATIN) 100,000 unit/mL suspension Take 5 mL by mouth four times daily. 1tsp swish in mouth for several minutes, then swallow (or expectorate) 4 times daily until gone. benzonatate (TESSALON PERLES) 100 mg capsule Take 2 capsules by mouth three times daily as needed. (Patient not taking: Reported on 04/06/2022) ARIPiprazole (ABILIFY) 2 mg tablet Take 2 mg by mouth daily at bedtime. (Patient not taking: Reported on 04/06/2022) carBAMazepine ER (CARBATROL) 200 mg 12 hr capsule Take 400 mg by mouth daily at bedtime. (Patient not taking: Reported on 04/06/2022) acetaminophen 650 mg CR tablet Take 1,300 mg by mouth every 8 hours as needed for pain. FAMILY HISTORY Adopted: Yes Social History Tobacco Use Smoking status: Never Smokeless tobacco: Never Substance Use Topics Alcohol use: Yes Comment: 3 times weekly Drug use: Never Review of Systems Constitutional: Negative for chills and fever. HENT: Positive for mouth sores. Negative for congestion, ear pain and sore throat. Respiratory: Negative for cough and shortness of breath. Cardiovascular: Negative for chest pain. Gastrointestinal: Negative for diarrhea and vomiting. Objective BP 128/84 Pulse 73 Temp 36.7 C (98.1 F) (Temporal) Resp 18 Wt 64.3 kg (141 lb 12.8 oz) SpO2 99% BMI 25.94 kg/m Physical Exam Vitals and nursing note reviewed. Constitutional: General: She is not in acute distress. Appearance: Normal appearance. She is not toxic-appearing. HENT: Right Ear: Tympanic membrane and ear canal normal. Left Ear: Tympanic membrane and ear canal normal. Nose: Nose normal. Mouth/Throat: Mouth: Mucous membranes are moist. Pharynx: Uvula midline. Oropharyngeal exudate present. No posterior oropharyngeal erythema. Comments: Patient has white plaques noted in the posterior oropharynx. She has a fissure of the tongue noted no vesicular lesions. Handling secretions. No trismus. No floor of mouth swelling or pain. Eyes: Conjunctiva/sclera: Conjunctivae normal. Cardiovascular: Rate and Rhythm: Normal rate and regular rhythm. Pulmonary: Effort: Pulmonary effort is normal. Breath sounds: Normal breath sounds. Neurological: Mental Status: She is alert. Assessment and Plan ASSESSMENT/PLAN: 1. Thrush - ICD9: 112.0, ICD10: B37.0 -Rx for nystatin oral suspension -Recommend rinsing out mouth after using Advair. -Follow-up with PCP next week Diagnosis and treatment plan were discussed and questions were answered to the patient's satisfaction. Pt acknowledged understanding of concepts and follow up plan. Specific signs and symptoms that would indicate the need for higher level of care were discussed in detail warranting prompt ER evaluation. ZHANNA Holly documented in this encounter [facility] 03-12-2022 Influenza virus A and B RNA and SARS-CoV-2 (COVID-19) N gene panel WILMER+probe (Resp) COVID 19 RESULT: SARS-CoV-2 (Agent of COVID-19) Not Detected by RT-PCR or equivalent method. This test was developed and its performance characteristics determined by [facility]'s [facility] [place]. This test has been authorized by FDA under an Emergency Use Authorization (EUA). This test has been validated in accordance with the FDA's Guidance Document Policy for Diagnostics Testing in Laboratories Certified to Perform High Complexity Testing under CLIA prior to Emergency use Authorization for Coronavirus Disease 2019 during the Public Health Emergency issued on April 11, 2019. Test performed by [facility], [facility] [place], [facility] [place], [place] [address]. INFLUENZA A PCR: Negative for Influenza A by RT-PCR INFLUENZA B PCR: Negative for Influenza B by RT-PCR [facility] Diagnosis Thrush- Primary Candidiasis of mouth [facility] Diagnosis Upper respiratory tract infection, unspecified type- Primary Acute cough [facility] No data available for this section [facility] Progress note No data available for this section [facility] Summary Purpose Family History No Family History Records FoundNo Family History Records FoundNo Family History Records Found No data available for this section No data available for this section No Family History Records FoundNo Family History Records Found Advance Directives No Advanced Directives Records FoundNo Advanced Directives Records FoundNo Advanced Directives Records FoundNo Advanced Directives Records FoundNo Advanced Directives Records Found Health Concerns Infection Onset Date Last Indicated Resolved Time COVID-19 Rule-Out 11/30/2021 11/30/2021 Infection Onset Date Last Indicated Resolved Time COVID-19 Rule-Out 10/31/2022 10/31/2022 Infection Onset Date Last Indicated Resolved Time COVID-19 Rule-Out 01/15/2023 01/15/2023 01/16/2023 5:27 AM EST COVID-19 Confirmed 01/15/2023 01/15/2023 Additional Source Comments INFORMATION SOURCE (unrecogn ized section and content) DATE CREATED AUTHOR AUTHOR'S ORGANIZ ATION 03/05/2020 [facility] DATE CREATED AUTHOR AUTHOR'S ORGANIZ ATION 03/11/2021 [facility] DATE CREATED AUTHOR AUTHOR'S ORGANIZ ATION 01/18/2023 [facility] DATE CREATED AUTHOR AUTHOR'S ORGANIZ ATION 01/30/2023 [facility] ([place]) Source Comments (unrecognize d section and content) In the event this informatio n is protected by the Federal Confidentiality of Alcohol and Drug Abuse Patient Records regulations: The Federal rules restrict any use of the information to criminally investigate or prosecute any alcohol or drug abuse patient.[facility] the event this information is protected by the Federal Confidentiality of Alcohol and Drug Abuse Patient Records regulations: The Federal rules restrict any use of the information to criminally investigate or prosecute any alcohol or drug abuse patient.[facility] the event this information is protected by the Federal Confidentiality of Alcohol and Drug Abuse Patient Records regulations: The Federal rules restrict any use of the information to criminally investigate or prosecute any alcohol or drug abuse patient.[facility] the event this information is protected by the Federal Confidentiality of Alcohol and Drug Abuse Patient Records regulations: The Federal rules restrict any use of the information to criminally investigate or prosecute any alcohol or drug abuse patient.[facility] Reason for Visit (unrecogniz ed section and content) Specialty Diagnoses / Procedures Referred By Contac t Referred To Contact [facility] Diagnoses ear pain, ear pain, cough losing voice, x4 days Procedures NEW SAME DAY Self Express [facility] [address] [place] [address] Referral ID Status Reason Start Date Expiration Date V isits Requested Visits Authorized [id number] Outside PCP 11/30/2021 02/28/2022 1 1 Reason Comments Mouth Sores Pt reported painful mouth sores x1 week, completed ATB. Specialty Diagnoses / Procedures Referred By Noreen t Referred To Contact [facility] Diagnoses mouth hurts, possible thrust, x1 week. 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 This clinical summary was aggregated from multiple sources. Caution should be exercised in using it in the provision of clinical care. This summary normalizes information from multiple sources, and as a consequence, information in this document may materially change the coding, format and clinical context of patient data. In addition, data may be omitted in some cases. CLINICAL DECISIONS SHOULD BE BASED ON THE PRIMARY CLINICAL RECORDS. [employer] provides no warranty or guarantee of the accuracy or completeness of information in this document.
[2023-02-07 02:02] LABS: Osmolality, Serum 279 mOsm/KG (275-295); Osmolality, Urine 139 mOsm/KG
[2023-02-07] MEDS: oxyCODONE 5 MG Tablet PO (02:44)
[2023-02-07] MEDS: Phenobarbital 32.4 MG Tablet 64.7999999999999972 MG PO ×6 (02:45→22:14)
[2023-02-07] MEDS: Ondansetron 8 MG Tablet PO (06:04)
[2023-02-07] MEDS: Gabapentin 800 MG Tablet PO ×3 (06:04→22:14)
[2023-02-07] MEDS: Acetaminophen 325 MG Tablet 650 MG PO (06:04)
[2023-02-07] MEDS: 0.9% Normal Saline (1000mL) 1,000 ML 100 ML IV (06:04)
[2023-02-07 07:12] LABS: Hematocrit 31.9 % (37-47); Hemoglobin 10.4 g/dL (12.0-15.0); Mean Corp Hgb Conc 32.6 g/dL (32-36); Mean Corpuscular Hgb 29.1 pg (27.0-32.0); Mean Corpuscular Volume 89.4 fL (81-99); Platelet Count 291 K/mm3 (150-450); RBC Distribution Width SD 42.3 fl (35.1-43.9); Red Blood Count 3.57 M/mm3 (4.2-5.4); White Blood Count 6.3 K/mm3 (4.4-11.0)
[2023-02-07 07:47] LABS: Anion Gap 7 (5-15); BUN 9 mg/dL (7-18); BUN/Creat Ratio 11.6 RATIO (10-20); Calcium,Total 8.3 mg/dL (8.5-10.1); Chloride 101 mmol/L (98-107); Creatinine, Serum 0.78 mg/dL (0.55-1.02); EST Glomerular Filtration Rate 80 mL/min (>60); Est Glom Filt Rate - Afr Amer 97 mL/min (>60); Estimated Creatinine Clearance 60.66 ml/min; Glucose 99 mg/dL (74-106); Potassium 3.8 mmol/L (3.5-5.1); Sodium Level 134 mmol/L (136-145)
--- NOTE | 2023-02-07 07:50 | PN.HOSP_ITS ---
Reason for Visit Reason for Visit: Alcohol detox Subjective Subjective Ms. Reed is a 62-year-old female who presented to the emergency department at [facility] on 02/06/2023 requesting detoxification from alcohol. Patient history was assisted by her who is at the bedside on presentation. They reported that she had been a daily alcohol drinker for the last 20 to 30 years and had never gone through detox previously. She drinks at least 6 beers plus shots of fireball each day. She reported that she drinks the beer and a shot of fireball at the same time so it sounds as if she is drinking about 6 shots of fireball daily. She keeps alcohol at her bedside will drink overnight due to withdrawal symptoms. Her last drink was approximately 30 minutes prior to presentation the emergency department. She indicated she wanted to go through detox because she been drinking for too long and wants to be done with drinking. Vital signs on presentation showed temperature 96.7, heart rate 80, blood pressure 163/85, respiratory was 18 oxygen saturations were 98% on room air. Her CBC showed a mild anemia which appears to be stable when compared to previous labs. Chemistry panel initially showed mild hyponatremia with a sodium of 129 however this is improved within 24 hours of her hospitalization. Liver functions were normal. Ethyl alcohol level on presentation was 66 and toxicology screen was unremarkable. She does have a history of bipolar disorder and follows with Dr. Gonzalez and takes Lexapro, olanzapine,, and Lamictal. She was admitted to the medical floor and placed on a phenobarbital taper, thiamine and folate as well as supportive medication for withdrawal symptoms. No significant withdrawal symptoms at this time. Patient states that she has the feeling that there is a presence around her but not having hallucinations. Denies any tremor or significant anxiety. States she would like to talk both about inpatient and outpatient options with 180. Patient is complaining of some pain on her left side which is new. We did discuss this and she denied any falls but did indicate she slept on the side last night so feels that it may be attributed to this. There is Tylenol available for pain. Objective Data Objective Data Vital Signs: Vital Signs Temp Pulse Resp BP Pulse Ox O2 Del Method 97.8 F 78 16 125/61 H 98 Room Air 02/07/23 05:58 02/07/23 05:58 02/07/23 05:58 02/07/23 05:58 02/07/23 05:58 02/07/23 05:58 Oxygen Delivery Method Room Air Weight: 75.3 kg Body Mass Index (BMI) 30.3 Intake & Output: Intake and Output for Last 24 Hours 02/05/23 02/06/23 02/07/23 23:59 23:59 23:59 Intake Total 1626.67 / 1626.67 Output Total 600 / 600 Balance 1026.67 / 1026.67 Lab / Micro Data 02/07/23 06:25 02/07/23 06:25 Labs: Laboratory Results - last 24 hr 02/06/23 19:45: Sodium 129 L, Potassium 3.6, Chloride 97 L, Carbon Dioxide 22.0, Anion Gap 10, BUN 11, Creatinine 0.77, Estim Creat Clear Calc 61.45, Est GFR (MDRD) Af Amer 98, Est GFR (MDRD) Non-Af 81, BUN/Creatinine Ratio 14.2, Glucose 100, Serum Osmolality 279, Calcium 8.5, Total Bilirubin 0.30, AST 14 L, ALT 17, Alkaline Phosphatase 141 H, Total Protein 6.8, Albumin 3.5, Globulin 3.3, Albumin/Globulin Ratio 1.1, Urine Osmolality 139, Ur Random Sodium 24, Urine Opiates Screen NEGATIVE, Urine Methadone Screen NEGATIVE, Ur Barbiturates Screen NEGATIVE, Ur Phencyclidine Scrn NEGATIVE, Ur Amphetamines Screen NEGATIVE, MDMA (Ecstasy) Screen NEGATIVE, U Benzodiazepines Scrn NEGATIVE, Urine Cocaine Screen NEGATIVE, U Cannabinoids Screen NEGATIVE, Ur Drug Screen Comment , Ethyl Alcohol 66.0 02/07/23 00:08: PT 13.2, INR 1.0 02/07/23 06:25: WBC 6.3, RBC 3.57 L, Hgb 10.4 L, Hct 31.9 L, MCV 89.4, MCH 29.1, MCHC 32.6, RDW Std Deviation 42.3, RDW Coeff of Mallory 13.0, Plt Count 291, MPV 9.0, Sodium 134 L, Potassium 3.8, Chloride 101, Carbon Dioxide 26.0, Anion Gap 7, BUN 9, Creatinine 0.78, Estim Creat Clear Calc 60.66, Est GFR (MDRD) Af Amer 97, Est GFR (MDRD) Non-Af 80, BUN/Creatinine Ratio 11.6, Glucose 99, Calcium 8.3 L Physical Exam Const alert, oriented x3, no apparent distress and well nourished Constitutional Narrative: Obese, upper middle-aged, white female, sitting up in bed, appears older than stated age, eating breakfast and watching television, currently appears comfortable and nontoxic HEENT head/scalp atraumatic and moist oral mucous membranes Resp normal respiratory effort, no retractions, no use of accessory muscles and clear to auscultation bilaterally Auscultation: Negative for rales, rhonchi or wheezes Cardio regular rate, regular rhythm, S1 normal heart sound, S2 normal heart sound, no murmurs, no rub, no gallops and no clicks GI normal to inspection, nondistended, normoactive bowel sounds, soft to palpation and non-tender Extremity no clubbing, cyanosis or edema Extremity Narrative: Pedal pulses are 2+ Neuro oriented x3, moves all extremities and no focal motor deficits Speech: speech normal Psych Psych Narrative: Affect is mildly flat however eye contact is good, mood is stable Assessment & Plan Assessment/Plan (1) Acute alcohol intoxication with alcoholism: (2) Alcohol withdrawal: (3) Hyponatremia: PLAN: Plan Acute alcohol withdrawal -Continue phenobarbital taper -Continue thiamine and folate was ordered -Continue supportive medication for withdrawal symptoms -Social work/case management consultation -180 consultation for assistance with discharge planning Hyponatremia -Sodium is 129 admission however improved to 134 today -Suspect related to poor solute intake -Patient was given 1 L of IV fluid in the emergency department prior to admission -No follow-up needed at this point Hypertension -Continue home lisinopril -Would expect to see elevated blood pressures while going through detox -Will monitor closely for further antihypertensive needs Bipolar 2 disorder -Patient follows with psychiatry as an outpatient and last office visit with Dr. Gonzalez was on 12/12/2022 -Continue Lexapro -Continue olanzapine nightly -Continue Lamictal GERD -Continue home PPI twice daily Overactive bladder -Continue home oxybutynin CHIQUI -Continue home CPAP Hyperlipidemia -Continue home statin History of stroke -Continue home aspirin -Continue risk factor modification COPD/seasonal allergies/asthma Continue home inhalers -Continue home Singulair Obesity -BMI 30.4 -Recommend weight loss -Complicates treatment, prognosis, outcomes DVT prophylaxis -Subcu Lovenox given medical complexity and age CODE STATUS -Full code Charges/Coding Visit Charges Inpatient E&M: 74048 Subs Hosp L2
[2023-02-07] MEDS: Aspirin 81 MG TAB.CHEW PO (08:23)
[2023-02-07] MEDS: Folic Acid 1 MG Tablet PO (08:23)
[2023-02-07] MEDS: Thiamine Hydrochloride 100 MG Tablet PO (08:23)
[2023-02-07] MEDS: Pantoprazole Sodium 40 MG Tablet PO ×2 (08:23→22:14)
[2023-02-07] MEDS: Escitalopram Oxalate 20 MG Tablet PO (10:00)
[2023-02-07] MEDS: lamoTRIgine 100 MG Tablet 200 MG PO ×2 (10:00→22:14)
[2023-02-07] MEDS: Lisinopril 20 MG Tablet PO (10:00)
[2023-02-07] MEDS: Magnesium Chloride 64 MG Delay Rel.Tablet 128 MG PO (10:00)
[2023-02-07] MEDS: Enoxaparin 40 MG/0.4 ML Syringe SC (10:00)
[2023-02-07] MEDS: Montelukast 10 MG Tablet PO (10:00)
--- NOTE | 2023-02-07 11:47 | ADDICTION ---
Addendum entered by Brenna Flower 02/08/23 10:57: This treatment center is an inpatient facility. Original Note: This caption writer met with PT to conduct ASAM, MSE, AUDIT assessments and to plan for d/c. PT A+Ox4 and participated actively. All assessments completed and placed in PT's chart. PT plans to f/u with [facility] for follow-up treatment services if approved.They will provide transportation post d/c from [facility].
[2023-02-07] MEDS: Budesonide Respules 0.5 MG/2 ML AMPUL.NEB. INHALATION (11:59)
[2023-02-07] MEDS: hydrOXYzine PAM 25 MG Capsule 50 MG PO (20:45)
[2023-02-07] MEDS: OLANZapine 10 MG Tablet PO (22:14)
[2023-02-07] MEDS: Atorvastatin Calcium 10 MG Tablet PO (22:14)
[2023-02-08] MEDS: Phenobarbital 32.4 MG Tablet 64.7999999999999972 MG PO ×2 (02:27→06:20)
[2023-02-08 02:30] VITALS: BP 139/84; PULSE 71; RESP 16; TEMP 36.6; O2SAT 100
[2023-02-08] MEDS: Acetaminophen 325 MG Tablet 650 MG PO (02:32)
[2023-02-08] MEDS: Gabapentin 800 MG Tablet PO (06:20)
[2023-02-08 06:55] VITALS: PULSE 71; RESP 16; O2SAT 99
[2023-02-08] MEDS: Budesonide Respules 0.5 MG/2 ML AMPUL.NEB. INHALATION (06:55)
[2023-02-08 10:06] VITALS: BP 139/73; PULSE 82; RESP 16; TEMP 36.4; O2SAT 99
[2023-02-08] MEDS: Montelukast 10 MG Tablet PO (10:42)
[2023-02-08] MEDS: Thiamine Hydrochloride 100 MG Tablet PO (10:42)
[2023-02-08] MEDS: Aspirin 81 MG TAB.CHEW PO (10:42)
[2023-02-08] MEDS: Enoxaparin 40 MG/0.4 ML Syringe SC (10:42)
[2023-02-08] MEDS: Escitalopram Oxalate 20 MG Tablet PO (10:42)
[2023-02-08] MEDS: Lisinopril 20 MG Tablet PO (10:42)
[2023-02-08] MEDS: Folic Acid 1 MG Tablet PO (10:42)
[2023-02-08] MEDS: lamoTRIgine 100 MG Tablet 200 MG PO (10:42)
[2023-02-08] MEDS: Pantoprazole Sodium 40 MG Tablet PO (10:42)
[2023-02-08] MEDS: Magnesium Chloride 64 MG Delay Rel.Tablet 128 MG PO (10:43)
--- NOTE | 2023-02-08 11:35 | PCM.DC.SUM ---
Providers Date of Admission: 02/06/23 Date of Discharge: 02/08/23 Primary Care Physician: Dr. Margarita Garcia MD Reason For Visit: ALCOHOL DETOXIFICATION Diagnosis Discharge Diagnosis (1) Acute alcohol intoxication with alcoholism: Status: Acute Code(s): F10.229 - Alcohol dependence with intoxication, unspecified (2) Alcohol withdrawal: Status: Acute Code(s): F10.939 - Alcohol use, unspecified with withdrawal, unspecified (3) Hyponatremia: Status: Acute Code(s): E87.1 - Hypo-osmolality and hyponatremia Medications at Discharge Home Medications albuterol sulfate 90 mcg/actuation aerosol inhaler 2 puff inhalation Q4H PRN PRN Sob &/Or Wheezing 12/26/16 cholecalciferol (vitamin D3) 125 mcg (5,000 unit) disintegrating tablet 5,000 unit PO DAILY vitamin 12/26/16 cyanocobalamin (vitamin B-12) 500 mcg tablet 500 mcg PO DAILY vitamin 12/26/16 aspirin 81 mg chewable tablet 81 mg PO DAILY@0800 blood thinner 12/27/16 diclofenac sodium 1 % topical gel 2 g topical ONCE itch 01/06/20 coenzyme Q10 30 mg capsule 60 mg PO DAILY vitamin 03/07/20 eluxadoline 100 mg tablet (Viberzi) 50 mg PO DAILY ibs 03/07/20 vjgsgelk-jktt-isiip acid 240 mcg-vit K 120 wnc-[id number] 293 tablet (Alive Women's 50 Plus (fruit-veg blend)) 1 tab PO DAILY vitamin 03/07/20 pyridoxine (vitamin B6) 100 mg tablet 100 mg PO DAILY vitamin 04/01/20 estradiol 0.01% (0.1 mg/gram) vaginal cream (Estrace) 1 g vaginal 2XW hormone 05/08/21 fluticasone 250 mcg-salmeterol 50 mcg/dose blistr powdr for inhalation (Advair Diskus) 1 inh inhalation BID sob 04/17/22 ondansetron 4 mg disintegrating tablet 4 mg PO Q8H PRN nausea and vomiting #30 tabs 04/17/22 oxybutynin chloride 15 mg tablet,extended release 24 hr 30 mg PO DAILY bladder 04/17/22 magnesium 200 mg tablet 400 mg PO QHS vitamin 09/13/22 omeprazole 40 mg capsule,delayed release 40 mg PO BID stomach 09/13/22 rimegepant 75 mg disintegrating tablet (Nurtec ODT) 75 mg PO QODAY mckinney 09/13/22 prazosin 1 mg capsule (Minipress) 1 mg PO QHS htn 10/02/22 lisinopril 20 mg tablet 20 mg PO DAILY bp #90 tabs 10/05/22 olanzapine 10 mg tablet 10 mg PO QHS bipolar #30 tabs 10/23/22 hydroxyzine HCl 50 mg tablet 50 mg PO .QID PRN anxiety 30 days #120 tabs 11/08/22 simvastatin 20 mg tablet 20 mg PO QHS hld #90 tabs 11/08/22 cyclobenzaprine 10 mg tablet 5 - 10 mg (0.5 - 1 x 10 mg) PO BID PRN muscle spasm #20 tabs 11/28/22 oxycodone-acetaminophen 5 mg-325 mg tablet 1 tab PO TID PRN pain (scale score 4-6) 12/12/22 gabapentin 800 mg tablet See Rx Instructions .Route .COMPLEX pain #30 tabs 01/29/23 montelukast 10 mg tablet 10 mg PO DAILY asthma #60 tabs 01/29/23 doxepin 10 mg capsule See Rx Instructions .Route .COMPLEX sleep #30 caps 01/31/23 escitalopram oxalate 20 mg tablet 20 mg PO DAILY depression #30 tabs 01/31/23 lamotrigine 200 mg tablet 200 mg PO BID seizure 30 days #60 tabs 01/31/23 prazosin 1 mg capsule 1 mg PO DAILY htn 30 days #30 caps 01/31/23 Hospital Course Operations None Procedures None Summary of Care Provided Minutes Spent on Discharge: 31 Hospital Course: Ms. Reed is a 62-year-old female who presented to the emergency department at [facility] on 02/06/2023 requesting detoxification from alcohol. Patient history was assisted by her who is at the bedside on presentation. They reported that she had been a daily alcohol drinker for the last 20 to 30 years and had never gone through detox previously. She drinks at least 6 beers plus shots of fireball each day. She reported that she drinks the beer and a shot of fireball at the same time so it sounds as if she is drinking about 6 shots of fireball daily. She keeps alcohol at her bedside will drink overnight due to withdrawal symptoms. Her last drink was approximately 30 minutes prior to presentation the emergency department. She indicated she wanted to go through detox because she been drinking for too long and wants to be done with drinking. Vital signs on presentation showed temperature 96.7, heart rate 80, blood pressure 163/85, respiratory rate was 18 oxygen saturations were 98% on room air. Her CBC showed a mild anemia which appears to be stable when compared to previous labs. Chemistry panel initially showed mild hyponatremia with a sodium of 129 however this is improved within 24 hours of her hospitalization. Liver functions were normal. Ethyl alcohol level on presentation was 66 and toxicology screen was unremarkable. She does have a history of bipolar disorder and follows with Dr. Gonzalez and takes Lexapro, olanzapine,, and Lamictal. She was admitted to the medical floor and placed on a phenobarbital taper, thiamine and folate as well as supportive medication for withdrawal symptoms. Patient did well during her hospital course. She was seen by [facility] and wanted to do inpatient rehabilitation. [facility] helped arrange for admission into [facility] for ongoing treatment for her alcohol abuse. At the time of discharge she was not having any symptoms of significant withdrawal however they will be able to continue her detox there if need be. Discharge diagnoses: Acute alcohol withdrawal Hyponatremia-resolved Hypertension Bipolar 2 disorder GERD Overactive bladder CHIQUI History of stroke Hyperlipidemia COPD Seasonal allergies Asthma Obesity Physical Exam Narrative No issues overnight. Patient denies any significant tremulousness, hallucinations, nausea, vomiting or diarrhea. States she is feeling fairly well overall. Const alert, oriented x3, no apparent distress and well nourished Constitutional Narrative: Obese, upper middle-aged, white female, sitting up in bed, appears older than stated age, nursing at bedside, currently appears comfortable and nontoxic General Appearance: cooperative, comfortable, well kempt and well developed Orientation / Consciousness: awake, oriented to person, oriented to place and oriented to time Exam Limitations: no limitations Nutritional Appearance: obese HEENT normocephalic, head/scalp atraumatic, hearing grossly normal bilaterally and moist oral mucous membranes Resp normal respiratory effort, normal air movement, no retractions, no use of accessory muscles and clear to auscultation bilaterally Auscultation: Negative for rales, rhonchi or wheezes Cardio regular rate, regular rhythm, S1 normal heart sound, S2 normal heart sound, no murmurs, no rub, no gallops and no clicks GI normal to inspection, nondistended, normoactive bowel sounds, soft to palpation and non-tender Extremity normal to inspection, full ROM, no clubbing, cyanosis or edema and no pedal edema Extremity Narrative: Pedal pulses are 2+, right lower extremity is in a walking boot due to recent bunion surgery Skin no rashes or lesions noted Skin Narrative: Operative incision noted Neuro oriented x3, moves all extremities and no focal motor deficits Speech: speech normal Psych Psych Narrative: Affect is normal today with good eye contact and stable mood Weight / BMI Weight Weight: 75.3 kg Body Mass Index (BMI) 30.3 ABG / Lab / Microbiology Data 02/07/23 06:25 02/07/23 06:25 D/C Instructions Discharge Diet: Low fat / Low cholesterol Discharge Activity: Return to Normal Activity Meaningful Use Info Meaningful Use Diagnoses (Choose all that apply): None applicable Discharge Plan Admission Admit Date/Time: 02/06/23 20:27 Primary Reason for Your Visit: Alcohol detoxification Attending Provider: Jacki Blanco Primary Care Provider: Margarita Garcia Consulting Providers: Toy Smith Discharge Orders/Prescriptions Prescriptions: Continued diclofenac sodium 1 % gel 2 g TOPICAL ONCE Rx Instructions: apply to single elbow, wrist or hand; for hand includes palm/fingers/back of hand Alive Women's 50 Plus (blend) 240-120-300 mcg tablet 1 tab PO DAILY Viberzi 100 mg tablet 50 mg PO DAILY Patient Comments: unsure if taking Rx Instructions: must administer with a meal/food pyridoxine (vitamin B6) 100 mg tablet 100 mg PO DAILY oxybutynin chloride 15 mg tablet extended release 24hr 30 mg PO DAILY estradiol [Estrace] 0.01 % (0.1 mg/gram) cream 1 g vaginal 2XW fluticasone propion-salmeterol [Advair Diskus] 250-50 mcg/dose blister with device 1 inh inhalation BID ondansetron 4 mg tablet,disintegrating 4 mg PO Q8H PRN (Reason: nausea and vomiting) Qty: 30 0RF prazosin [Minipress] 1 mg capsule 1 mg PO QHS Patient Comments: unsure if she takes olanzapine 10 mg tablet 10 mg PO QHS Qty: 30 2RF hydroxyzine HCl 50 mg tablet 50 mg PO .QID PRN (Reason: anxiety) 30 Days Qty: 120 2RF oxycodone-acetaminophen 5-325 mg tablet 1 tab PO TID PRN (Reason: pain (scale score 4-6)) Patient Comments: TAKE 1 TABLET BY MOUTH THREE TIMES DAILY cyanocobalamin (vitamin B-12) 500 MCG tablet 500 mcg PO DAILY albuterol sulfate 1 INHALER inhaler 2 puff INHALATION Q4H PRN PRN (Reason: Sob &/Or Wheezing) cholecalciferol (vitamin D3) 5,000 UNIT tablet,disintegrating 5,000 unit PO DAILY aspirin 81 MG tablet,chewable 81 mg PO DAILY@0800 0RF coenzyme Q10 30 mg capsule 60 mg PO DAILY omeprazole 40 mg capsule,delayed release(DR/EC) 40 mg PO BID Patient Comments: TAKE 1 CAPSULE BY MOUTH before BREAKFAST and supper magnesium 200 mg tablet 400 mg PO QHS Nurtec ODT 75 mg tablet,disintegrating 75 mg PO QODAY lisinopril 20 mg tablet 20 mg PO DAILY Qty: 90 1RF simvastatin 20 mg tablet 20 mg PO QHS Qty: 90 3RF cyclobenzaprine 10 mg tablet 5 - 10 mg PO BID PRN (Reason: muscle spasm) Qty: 20 0RF gabapentin 800 mg tablet See Rx Instructions .ROUTE .COMPLEX Qty: 30 0RF Dose Instruction: TAKE 1 TABLET BY MOUTH THREE TIMES DAILY Rx Instructions: TAKE 1 TABLET BY MOUTH THREE TIMES DAILY montelukast 10 mg tablet 10 mg PO DAILY Qty: 60 0RF doxepin 10 mg capsule See Rx Instructions .ROUTE .COMPLEX Qty: 30 2RF Dose Instruction: TAKE 1 CAPSULE orally at bedtime As Needed for sleep Rx Instructions: TAKE 1 CAPSULE orally at bedtime As Needed for sleep escitalopram oxalate 20 mg tablet 20 mg PO DAILY Qty: 30 2RF lamotrigine 200 mg tablet 200 mg PO BID 30 Days Qty: 60 2RF prazosin 1 mg capsule 1 mg PO DAILY 30 Days Qty: 30 2RF Discontinued Neuriva Plus 0.85 mg-200 mcg-1.2 mcg tablet,chewable PO DAILY Patient Comments: pt said it gave her the diarrhea Referrals / Follow Up: Margarita Garcia MD [Primary Care Provider] - Within 1 Month Disposition Disposition (needs filled in before D/C Order can be placed): Inpatient Rehab Unit/Facility Charges/Coding Visit Charges Inpatient E&M: 43523 Disch Hosp
== END 2023-02-08 11:58 | DRG 897 ==
LOC: ED 19:42 → MS3 02-07 01:09
PROVIDERS: Admitting Provider Hospitalist; Emergency Provider Emergency Medicine; PCP Internal Medicine; Visit Provider Internal Medicine
DX: F10.239 Alcohol dependence with withdrawal, unspecified (principal); E87.1 Hypo-osmolality and hyponatremia; F31.81 Bipolar II disorder; F10.229 Alcohol dependence with intoxication, unspecified; I10 Essential (primary) hypertension; J45.909 Unspecified asthma, uncomplicated; G47.33 Obstructive sleep apnea (adult) (pediatric); E78.5 Hyperlipidemia, unspecified; M79.7 Fibromyalgia; F41.9 Anxiety disorder, unspecified; K21.9 Gastro-esophageal reflux disease without esophagitis; M54.9 Dorsalgia, unspecified; Z68.30 Body mass index [BMI] 30.0-30.9, adult; Z86.73 Personal history of transient ischemic attack (TIA), and cerebral infarction without residual deficits; Z79.51 Long term (current) use of inhaled steroids; Z79.82 Long term (current) use of aspirin; E66.9 Obesity, unspecified; G89.29 Other chronic pain; Z99.89 Dependence on other enabling machines and devices; Y90.3 Blood alcohol level of 60-79 mg/100 ml
CPT/HCPCS: 36415; 80048; 80053; 80307; 80320; 83930; 83935; 84300; 85027; 85610; 94640; 94668; 94762; 99283; J7030; G0480

== ENCOUNTER → 2023-04-01 | Outpatient (CLI) | payer BC, SELFPAY ==
--- OUTSIDE RECORDS SUMMARY | 2023-04-01 11:26 | XMS RPT_ITS | CCD ---
Author Name Unknown Address [address] [place] [address] Organization [facility] Care Team Providers Care Production Control Coordinating Clerk Name Role Phone DEVIN RAMIREZ Admitting Unavailable [...] Unavailable OLEGHE, EFEWONGBE B Primary Care Unavailable OLEMAIKELE, EFEWONGBE B Primary Care Unavailable ARYA TAO PA-C Attending Unavailable MARGARITA GARCIA MD Primary Care Unavailab Lisbeth PONCE, DR ALEGRIA Attending Unavailable MARGARITA GARCIA MD Primary Care UnavailRAZ Grijalva MD Consulting Unavailab Lisbeth PONCE, DR ALEGRIA Attending Unavailable MARGARITA GARCIA MD Primary Care Unavailab le Allergies Allergy Classification Reported Allergen(s) Allergy Type Date of Onset Reaction(s) Facility (6 sources) Bee Venom Protein (Honey Bee); Translations: [BEE VENOM PROTEIN (HONEY BEE)] Drug Allergy 01-06-2020 Shortness of Breath [facility] Medications Current Medications Medication Drug Class(es) Dates Sig (Normalized) Sig (Original) ARIPiprazole 10 mg oral tablet (7 sources) Atypical Antipsychotic Start: 11-30-2022 Abilify 10 mg oral tablet Dose : 10 mg = 1 tab(s), Oral, qDay, # 30 tab(s), 0 Refill(s) Start Date: 11/30/22 Status: Ordered Completed/Discontinued Medications Medication Drug Class(es) Dates Sig (Normalized) Sig (Original) 8 hr acetaminophen 650 mg extended release oral tablet (5 sources) take 2 tablets by mouth every [...] ankle and foot] Onset: 11-30-2022 Chronic Other diseases of bladder and urethra (1 source) Overactive bladder; Translations: [Overactive bladder] 03-26-2023 Chronic Other lower respiratory disease (1 source) [...] Date Time Vital Sign Value Performing Clinician Faci lity 01-16-2023 21:02-0500 Diastolic Blood Pressure Non-Invasive 69 mm[Hg] YARIEL FLOWERS MD [facility] 01-16-2023 21:02-0500 Heart rate 75 /min YARIEL FLOWERS MD [address] [place] [address] 01-16-2023 21:02-0500 Respiratory rate 18 /min YARIEL FLOWERS MD [address] [place] [address] 01-16-2023 21:02-0500 Systolic Blood Pressure Non-Invasive 113 mm[Hg] YARIEL FLOWERS MD [address] [place] [address] 01-16-2023 16:17-0500 Diastolic Blood Pressure Non-Invasive 83 mm[Hg] YARIEL FLOWERS MD [address] [place] [address] 01-16-2023 16:17-0500 Heart rate 68 /min YARIEL FLOWERS MD [address] [place] [address] 01-16-2023 16:17-0500 Respiratory rate 18 /min YARIEL FLOWERS MD [address] [place] [address] 01-16-2023 16:17-0500 Systolic Blood Pressure Non-Invasive 136 mm[Hg] YARIEL FLOWERS MD [address] [place] [address] 01-16-2023 13:47-0500 Body temperature 98.24 [degF] YARIEL FLOWERS MD [address] 01-16-2023 13:47-0500 Body weight 71.6 kg YARIEL FLOWERS MD [address] [place] [address] 01-16-2023 13:47-0500 Diastolic Blood Pressure Non-Invasive 73 mm[Hg] YARIEL FLOWERS MD [address] [place] [address] 01-16-2023 13:47-0500 Heart rate 84 /min YARIEL FLOWERS MD [address] [place] [address] 01-16-2023 13:47-0500 Respiratory rate 18 /min YARIEL FLOWERS MD [address] [place] [address] 01-16-2023 13:47-0500 Systolic Blood Pressure Non-Invasive 127 mm[Hg] YARIEL FLOWERS MD [address] [place] [address] 11-30-2022 15:18-0400 Diastolic Blood Pressure Non-Invasive [address] AIRAM MARAVILLA DPM [facility] 11-30-2022 15:18-0400 Systolic Blood Pressure Non-Invasive [address] AIRAM MARAVILLA DPM [facility] 11-30-2022 14:04-0400 Body temperature 97.52 [degF] DR AIRAM MARAVILLA DPM [facility] 11-30-2022 14:04-0400 Diastolic Blood Pressure Non-Invasive [address] AIRAM MARAVILLA DPM [facility] 11-30-2022 14:04-0400 Heart rate 78 /min DR AIRAM MARAVILLA DPM [facility] 11-30-2022 14:04-0400 Respiratory rate 16 /min DR AIRAM MARAVILLA DPM [facility] 11-30-2022 14:04-0400 Systolic Blood Pressure Non-Invasive [address] AIRAM MARAVILLA DPM [facility] 11-30-2022 13:15-0400 Body temperature 97.52 [degF] DR AIRAM MARAVILLA DPM [facility] 11-30-2022 13:15-0400 Diastolic Blood Pressure Non-Invasive [address] AIRAM MARAVILLA DPM [facility] 11-30-2022 13:15-0400 Heart rate 82 /min DR AIRAM MARAVILLA DPM [facility] 11-30-2022 13:15-0400 Mean blood pressure 108 mm[Hg] DR AIRAM MARAVILLA DPM [facility] 11-30-2022 13:15-0400 Respiratory rate 16 /min DR AIRAM MARAVILLA DPM [facility] 11-30-2022 13:15-0400 Systolic Blood Pressure Non-Invasive [address] AIRAM MARAVILLA DPM [facility] 11-30-2022 13:00-0400 Heart rate 84 /min DR AIRAM MARAVILLA DPM [facility] 11-30-2022 12:55-0400 Heart rate 81 /min DR AIRAM MARAVILLA DPM [facility] 11-30-2022 12:45-0400 Mean blood pressure 100 mm[Hg] DR AIRAM MARAVILLA DPM [facility] 11-30-2022 12:30-0400 Body temperature 96.98 [degF] DR AIRAM MARAVILLA DPM [facility] 11-30-2022 12:30-0400 Mean blood pressure 101 mm[Hg] DR AIRAM MARAVILLA DPM [facility] 11-30-2022 12:20-0400 Respiratory Rate - Anes 0 br/min DR AIRAM MARAVILLA DPM [facility] 11-30-2022 12:15-0400 Respiratory Rate - Anes 15 br/min DR AIRAM MARAVILLA DPM [facility] 11-30-2022 12:10-0400 Respiratory Rate - Anes 16 br/min DR AIRAM MARAVILLA DPM [facility] 11-30-2022 11:05-0400 Body temperature 96.8 [degF] DR AIRAM MARAVILLA DPM [facility] 11-30-2022 10:45-0400 Body temperature 96.8 [degF] DR AIRAM MARAVILLA DPM [facility] 11-30-2022 06:51-0400 Body height 157.[address] AIRAM MARAVILLA DPM [facility] 11-30-2022 06:51-0400 Body weight 71.[address] AIRAM MARAVILLA DPM [facility] 11-30-2022 06:51-0400 Heart rate 67 /min DR AIRAM MARAVILLA DPM [facility] 10-31-2022 19:23-0400 Body temperature 98.4 [degF] Sheela Champion WINDOW TREATMENT INSTALLER.NEEDLE LEADER Work Phone: [facility] 10-31-2022 19:23-0400 Body weight 68.04 kg Sehela Champion WINDOW TREATMENT INSTALLER.NEEDLE LEADER Work Phone: [facility] 10-31-2022 19:23-0400 Diastolic blood pressure 82 mm[Hg] Sheela Champion WINDOW TREATMENT INSTALLER.NEEDLE LEADER Work Phone: [facility] 10-31-2022 19:23-0400 Heart rate 79 /min Sheela Champion WINDOW TREATMENT INSTALLER.NEEDLE LEADER Work Phone: [facility] 10-31-2022 19:23-0400 Respiratory rate 18 /min Sheela Champion WINDOW TREATMENT INSTALLER.NEEDLE LEADER Work Phone: [facility] 10-31-2022 19:23-0400 SaO2% (BldA) [Mass fraction] 97 % Sheela Champion WINDOW TREATMENT INSTALLER.NEEDLE LEADER Work Phone: [facility] 10-31-2022 19:23-0400 Systolic blood pressure 136 mm[Hg] Sheela Champion WINDOW TREATMENT INSTALLER.NEEDLE LEADER Work Phone: [facility] 04-06-2022 17:29-0500 Body temperature 98.1 [degF] Krislyn Aberegg PA Work Phone: [facility] 04-06-2022 17:29-0500 Body weight 64.32 kg Krislyn Aberegg PA Work Phone: [facility] 04-06-2022 17:29-0500 Diastolic blood pressure 84 mm[Hg] Krislyn Aberegg PA Work Phone: [facility] 04-06-2022 17:29-0500 Heart rate 73 /min Krislyn Aberegg PA Work Phone: [facility] 04-06-2022 17:29-0500 Respiratory rate 18 /min Krislyn Aberegg PA Work Phone: [facility] 04-06-2022 17:29-0500 SaO2% (BldA) [Mass fraction] 99 % Krislyn Aberegg PA Work Phone: [facility] 04-06-2022 17:29-0500 Systolic blood pressure 128 mm[Hg] Krislyn Aberegg PA Work Phone: [facility] 11-30-2021 19:15-0400 Body temperature 97.7 [degF] Kaylen Athy PA-C Work Phone: [facility] 11-30-2021 19:15-0400 Body weight 70.94 kg Kaylen Athy PA-C Work Phone: [facility] 11-30-2021 19:15-0400 Diastolic blood pressure 78 mm[Hg] Kaylen Athy PA-C Work Phone: [facility] 11-30-2021 19:15-0400 Heart rate 83 /min Kaylen Athy PA-C Work Phone: [facility] 11-30-2021 19:15-0400 Respiratory rate 18 /min Kaylen Athy PA-C Work Phone: [facility] 11-30-2021 19:15-0400 SaO2% (BldA) [Mass fraction] 97 % Kaylen Athy PA-C Work Phone: [facility] 11-30-2021 19:15-0400 Systolic blood pressure 122 mm[Hg] Kaylen Athy PA-C Work Phone: [facility] Encounters Encounter Date Encounter Type Care Provider Facility Start: 03-26-2023 Reftoy Snow Work Phone: [facility]Gynecology Start: 01-16-2023 End: 01-17-2023 Emergency department patient visit ARYA TAO PA-C Facility:A Start: 01-16-2023 Telephone encounter Gala Montana APRN.[facility] Work Phone: [facility] Procedures Date Procedure Procedure Detail Performing Clinician Start: 10-31-2022 STREP A MOLECULAR (POC) Gala Montana APRN.[facility] Work Phone: Start: 02-11-[address] AIRAM MARAVILLA DPM Start: 02-11-[address] ALESSANDRO MARAVILLA DPM Start: 02-11-[address] AIRAM MARAVILLA DPM Hysterectomy DR AIRAM MARAVILLA DPM Plan of Treatment Date Care Activity Detail Author Start: 02-11-2023 Depression Assessment Depression Ass [facility] Start: 10-31-2022 End: 11-14-2022 COVID & INFLUENZA A/B & RSV NAAT, ROUTINE [facility] Work Phone: Immunizations Immunization Date Immunization Notes Care Provider Keon espinoza 01-07-2019 influenza virus vacc ine, unspecified formulation Sheela Champion APRN.[facility] Work Phone: [facility] Payers Date Payer Category Payer Unknown [id number] 2018 Unknown [employer] PPO [id number] 2018-Present [phone] [address] [place] [address] PPO [id number] 1962 Unknown [id number] 1962 Unknown [id number] 1962 Unknown [id number] 1962 Unknown [id number] Social History Date Type Detail Facility Start: 11-30-2021 End: 11-30-2022 Tobacco smoking status NHIS Never smoked tobacco [facility] Start: 11-30-2021 Tobacco use and exposure Smoke less tobacco non-user [facility] Start: 11-30-2021 End: 01-15-2023 Alcohol intake Current drinker of alcohol (finding) [facility] Start: 11-21-2020 Alcohol Comment 3 times weekly [facility] Start: 1960 Sex Assigned At Not on file [facility] Start: 01-18-2020 End: 10-31-2022 History of Social function [facility] Start: 01-18-2020 End: 10-31-2022 Tobacco use panel [facility] National Score (1-10 0), lower number is lower risk Not on file [facility] Sex Assigned At Female [facility] Medical Equipment Procedure Code Equipment Code Equipment Origin al Text Equipment Identifier Dates Z Staple [id number] Start: 11-23-2020 POD Bunionectomy w/Lapiplasty Arthrodesi [...] Unknown 11/30/22 Unknown Unknown FDA Start: 11-30-2022 Mini Incision [id number] Start: 11-23-2020 Screw [id number] Start: 11-23-2020 Screw [id number] Start: 11-23-2020 Screw [id number] Start: 11-23-2020 Fixation Pack [id number] Start: 11-23-2020 Fixation Pack [id number] Start: 11-23-2020 Functional Status Date Assessment Result Facility 11-30-2022 Functional Status Independent [facility] 11-30-2022 Functional Status ice on [facility] 11-30-2022 Functional Status [facility] 11-30-2022 Functional Status Maintained [facility] Mental Status Date Assessment Result Facility 11-30-2022 Mental Status Orientation Oriented x 4 [facility] 11-30-2022 Mental Status [facility] Clinical Notes 11-23-2020 to 03-28-2023 Telephone Encounter - Shannon Crook RN - 03/28/2023 10:07 AM ESTTelephone Encounter - Bettina Stubbs APRN.CNP - 03/26/2023 4:33 PM ESTTelephone Encounter - Blaire Hudson - 01/16/2023 7:25 AM EST Note Date & Type Note Facility 03-28-2023 Miscellaneous Notes Called pt. Verified pt by name and . Gave pt candy cooker helper note. Pt agreeable to plan. Pt will make an appointment to discuss. Pt transferred to appt line. Shannon Crook RN March 28, 2023 10:08 AM Per chart she has history of memory impairment Would not recommend long-term high dose oxybuytnin use in this situation Recommend that she schedule a follow up visit with one of use to discuss other options Thanks Bettina Stubbs APRN.MARIA ISABEL Refill(s) request: Requested Prescriptions Pending Prescriptions Disp Refills oxybutynin ER (DITROPAN XL) 15 mg 24 hr Extended Rel Tab 60 tablet Sig: Take 2 tablets by mouth once daily. Request from: Patient Last order: 03/13/22 Last visit: Distance visit with provider Dr. Ellison on date 03/13/22 Assessments 1. Overactive bladder - N32.81 (Primary) 2. Female stress incontinence - N39.3 We discussed the patient's options for treatment of stress urinary incontinence which include expectant management, pelvic floor physical therapy, pessary or surgery (i.e. midurethral sling or intraurethral bulking agent)., We discussed the patient's options for her OAB which include expectant management, behavioral modification and bladder training, pelvic floor rehabilitation, anticholinergic medications, Myrbetriq (a B3 adrenergic agonist), or a combination of these treatment modalities. We also discussed the option of sacroneuromodulation (Interstim), UrgentPC or Intravesical Botox. We discussed the importance of decreasing/eliminating her caffeine intake to help improve her urgency and frequency. The patient was counseled on the importance of kegel exercises for urge control. She is not interested in advanced therapies at this time. Treatment 1. Overactive bladder Refill Oxybutynin Chloride ER Tablet Extended Release 24 Hour, 10 MG, 3 tablets, Orally, Once a day, 30 days, 90 Tablet, Refills 11 Appointment scheduled: No follow-up visit currently scheduled. Action taken: Patient overdue for appointment. Routing refill request to [facility] [place] for partial refill. Will advise patient when calling her back to schedule follow up visit. Monik Boo RN March 26, 2023 2:48 PM Patient called requesting refill on Oxybutynin. documented in this encounter [facility] 01-16-2023 Note ORIGINAL EXAMINATION: CT OF THE [...] Sign Date: 01/16/2023 4:14:18 PM Ordering Provider: ARYA [facility] 01-16-2023 Miscellaneous Notes Patient notified of results and provider's instructions. Patient verbalizes understanding. Tere Rios RN Left message for patient to call back and ask for a triage nurse for results. Blaire Hudson Patient was positive for COVID. Patient should quarantine for 5 days then mask for another 5 days. Deeb-gii-jbufrlt medications as appropriate for treatment. Patient was negative for flu and RSV. documented in this encounter [facility] 01-15-2023 Note HNO ID: [id number] Author: Sheela Champion APRN.MARIA ISABEL Service: ? Author Type: Nurse Practitioner Type: Progress Notes Filed: 01/15/2023 4:38 PM Note Text: This note was created using Shared Spectrumriter. Subjective Connie Greenberg is a 62 year old female. 62 year old female with PMH HTN, hyperlipidemia, COPD presents for ear pain. Acute onset 2 days ago +right ear pain +throbbing +cough +productive +fatigue +body aches Denies SOB or dyspnea Denies CP Endorses a home COVID was positive. The history is provided by the patient. No language assistant was used. Ear Pain This is a [...] at bedtime. be (more content not included)... [facility] 11-30-2022 Hospital Discharge instructions Patient Education 11/30/2022 14:03:24 - [facility] General Discharge Guidelines (10/26/2022) (CUSTOM) ALEJANDRO SAME DAY SURGERY DISCHARGE INSTRUCTIONS PLEASE FOLLOW [...] Care 07/19/2022 16:00:11 With:jamal Address: When: Unknown [facility] 11-30-2022 Summary of episode note Discharge Instructions Thank you for allowing [place] to assist you with your healthcare needs. [...] Post-op pain Duration: 7 Days Pickup at [facility] Unchanged albuterol (Ventolin MDI HFA) 2 [...] a day Unchanged herbal/ nutritional product (Evening [place] Oil 1000 mg oral capsule) See instructions [...] a day Unchanged omega-3 polyunsaturated fatty acids (Ward-3 1050 mg oral capsule) by mouth Three [...] Three (3) times a day Pharmacy Information [facility]: [address] [place], [place] [phone] Please take this list to your next doctor s visit. Bring all medications you take, including over the counter medications, herbals and other supplements with you to your doctor s visit. Patients and families are reminded to discard old lists and to update any records with all medication providers or retail pharmacies. Education Materials [facility] SAME DAY SURGERY DISCHARGE INSTRUCTIONS PLEASE FOLLOW [...] to receive it can visit one of [facility] vaccine clinics. There are many vaccine clinic locations within the [facility]. For locations and available times, please visit [email or web address].[place].[email or web address] It is important to note that some COVID mobile vaccine clinics are held outdoors and may be canceled in rainy or stormy conditions. To learn more about pediatric vaccinations (ages 5-11), we invite you to visit the [facility] webpage. https://www.[email or web address].[email or web address]/pag [email or web address]-Auynl-[email or web address]-[email or web address] se-Lacpg-Cpwgrhnai.html To learn more about the COVID-19 vaccine, we invite you to visit the CDC website for a list of frequently asked questions.https://www.cdc.gov/eldon navirus/2019-ncov/vaccines/faq.htm l [facility] Patient Portal Access Instructions: Stay connected with your healthcare team and access your personal medical information anytime with the [facility] Patient Portal. Please follow the directions below to create your [facility] account: 1.Access the email account you provided upon registration to the hospital/physician office.2.Look for an invitation email from [facility].3.Open the email and access the invitation link: Accept Invitation to [facility].4.Fill in the required medina to create your account. To access your account, visit [email or web address]. Click the blue button labeled Access Patient [...] you will allow to register on the [facility] Patient Portal for access to your information. You can also access the [facility] Patient Portal on the [facility] los. Simply click on Patient Portal and then log into your account. If you would like to receive a full copy of your medical records, please contact the [facility] Medical Records Department by calling [phone], Saturday through Saturday between 8 a.m. and [...] Call your local pharmacy or go to [email or web address] to find one close to you.3.Make use of household items: Use cat litter or old coffee grounds to dispose medications if other options are not available. Mix your drugs with these household products, seal them in an airtight container and throw it into the garbage. Call [facility]: [phone] to be sure your drugs can be [...] aware that I should contact my doctor. Patient/Adult Caregiver Signature: Date/Time: Relationship to Patient: ___ Witness Name/Signature: Date/Time: [facility] 11-30-2022 Anesthesiology Consult note Patient: CONNIE [...] ALEJANDRA DEMPSEY MD on 11/30/2022 01:45 PM [facility] 11-30-2022 Note ORIGINAL EXAMINATION: SPOT FLUOROSCOPIC [...] Date: 11/30/2022 12:19:24 PM Ordering Provider: AIRAM [facility] 11-30-2022 Anesthesiology Progress note Patient: CONNIE [...] 1 cap(s), Oral, BID, 0 Refill(s) Evening Goldsboro Oil 1000 mg oral capsule: See Instructions, [...] 0 Refill(s) OLANZapine: Oral, qDay, 0 Refill(s) Ward-3 1050 mg oral capsule: Oral, TID, 0 [...] Problem list: Medical Anxiety / SNOMED CT 77221298 / Confirmed Bipolar disorder / SNOMED CT 48966004 / Confirmed Chronic back pain / SNOMED CT 981246204 / Confirmed Depression / SNOMED CT 38000830 / Confirmed Hyperlipidemia / SNOMED CT 880607122 / Confirmed Hypertension / SNOMED CT 2815569465 / Confirmed Sciatic nerve pain / SNOMED CT 94361171 / Confirmed, Active Problems (7) Anxiety Bipolar disorder Chronic back pain Depression Hyperlipidemia Hypertension Sciatic nerve pain Histories Past Medical History: Active Hypertension (7973902054) Hyperlipidemia (742430149) Anxiety (49352585) Bipolar disorder (21580533) Depression (39658569) Chronic back pain (013915104) Sciatic nerve pain (60039911) Family History: Patient was adopted. Asthma Daughter Son Mental illness Son Procedure history: Endometrial ablation (250966769) in 1997 at 37 Years. section (45672032) in 1990 at 30 Years. Tonsillectomy (449612422) in 1967 at 7 Years. Hysterectomy (514046913). Social History Social & Psychosocial Habits Alcohol [...] None Living situation: Home with assistance Primary Product Designer: Aashish Safe place to go: Yes Lives In 1st floor bathroom, 1st floor laundry, 2nd floor bedroom, Split level home Current Home Treatments None Nutrition/Health 11/30/2022 Type of diet: Regular Appetite Excellent Eating Difficulties None . Physical Examination Vital Signs(last 24 hrs) Last Charted Resp Rate 16 br/min (NOV 30 06:51) TJX833 mmHg (NOV 30 06:51) DBP81 mmHg (NOV 30 06:51) Measurements from flowsheet : Measurements 11/30/2022 6:51 EDT Height 157.5 cm Height in inches 62 inch(es) Admission Weight 71.8 kg Weight Lbs 158 lb Weight Method Actual [place] Body Weight 50.12 kg Admission Body Mass [...] Ca 9.1(NOV 30) . Assessment and Plan [place] Society of Anesthesiologists (ASA) physical status classification: [...] RAZ WOOD MD on 11/30/2022 08:04 AM [facility] 10-31-2022 Note HNO ID: [id number] Author: Sheela Champion APRN.MARIA ISABEL Service: ? Author Type: Nurse Practitioner Type: Progress Notes Filed: 11/07/2022 2:27 PM Note Text: This note was created using Shared Spectrumriter. Subjective Connie Greenberg is a 62 year old female. 62 year old female with no PMH presents for illness. Acute onset 10 days ago +cough +productive . +sore throat +ear pain +fatigue Denies SOB or dyspnea. Denies tobacco usage. Has tried OTC medicines without relief. The history is provided by the patient. No language assistant was used. Cough This is a new [...] as needed. (Patient (more content not included)... [facility] 10-31-2022 History of Present illness Narrative This note was created using Ratify. Subjective Connie Greenberg is a 62 year old female. Acute onset 10 days ago +cough +sore throat +ear pain Cough Review of Systems Respiratory: Positive for cough. Objective BP 136/82 Pulse 79 Temp 36.9 C (98.4 F) (Tympanic) Resp 18 Wt 68 kg (150 lb) SpO2 97% BMI 27.44 kg/m Physical Exam Assessment and Plan documented in this encounter [facility] 05-07-2022 Note HNO ID: [id number] Author: Gordon Vance APRN.MARIA ISABEL Service: ? Author Type: Nurse Practitioner Type: Progress Notes Filed: 05/07/2022 2:20 PM Note Text: Subjective HPI Nontoxic-appearing female presents urgent care chief complaint sore throat headache. Duration of symptoms 2 days. Associated symptoms listed above. Most prominent symptom today is sore throat. States headache is transient. No known sick contacts. Recently did return home from [place]. Has not used any OTC medications. Denies [...] by mouth daily (more content not included)... [facility] 04-06-2022 Note HNO ID: [id number] Author: ZHANNA Holly Service: ? Author Type: Physician Security Installation Technician Type: Progress Notes Filed: 04/06/2022 5:37 PM Note Text: This note was created using Ratify. Subjective Connie Greenberg is a 61 year [...] use: Never Revi (more content not included)... [facility] 04-06-2022 History of Present illness Narrative This note was created using Ratify. Subjective Connie Greenberg is a 61 year [...] Anxiety and depression Arthritis Asthma Bipolar disorder ([facility]) CVA (cerebral vascular accident) (HCC) Diarrhea, functional GERD (gastroesophageal reflux disease) Hiatal hernia High cholesterol Hypertension Impaired cognition Irritable bowel syndrome with both constipation and diarrhea Sleep apnea TIA (transient ischemic attack) 2017 PAST SURGICAL HISTORY Procedure Laterality Date BX [...] evaluation. ZHANNA Holly documented in this encounter [facility] 03-12-2022 Influenza virus A and B RNA and SARS-CoV-2 (COVID-19) N gene panel WILMER+probe (Resp) COVID 19 RESULT: SARS-CoV-2 (Agent of COVID-19) Not Detected by RT-PCR or equivalent method. This test was developed and its performance characteristics determined by [facility] [place]. This test has been authorized by FDA under an Emergency Use Authorization (EUA). This test has been validated in accordance with the FDA's Guidance Document Policy for Diagnostics Testing in Laboratories Certified to Perform High Complexity Testing under CLIA prior to Emergency use Authorization for Coronavirus Disease 2019 during the Public Health Emergency issued on April 11, 2019. Test performed by [facility], [facility] [place], [facility] [place] [address]. INFLUENZA A PCR: Negative for Influenza A by RT-PCR INFLUENZA B PCR: Negative for Influenza B by RT-PCR [facility] Thrush- Primary Candidiasis of mouth [facility] Diagnosis Upper respiratory tract infection, unspecified type- Primary Acute cough [facility] Diagnosis OAB (overactive bladder) [N32.81]- Primary Hypertonicity of bladder documented in this encounter [facility] Discharge instructions No data available for this section [facility] Progress note No data available for this section [facility] Summary Purpose Family History No Family [...] DATE CREATED AUTHOR AUTHOR'S ORGANIZ ATION 03/05/2020 [facility] DATE CREATED AUTHOR AUTHOR'S ORGANIZ ATION 03/11/2021 [facility] DATE CREATED AUTHOR AUTHOR'S ORGANIZ ATION 01/18/2023 [facility] DATE CREATED AUTHOR AUTHOR'S ORGANIZ ATION 01/30/2023 [facility] ([place]) Source Comments (unrecognize d section and content) In the event this informatio n is protected by the Federal Confidentiality of Alcohol and Drug Abuse Patient Records regulations: The Federal rules restrict any use of the information to criminally investigate or prosecute any alcohol or drug abuse patient.[facility] the event this information is protected by the Federal Confidentiality of Alcohol and Drug Abuse Patient Records regulations: The Federal rules restrict any use of the information to criminally investigate or prosecute any alcohol or drug abuse patient.[facility] the event this information is protected by the Federal Confidentiality of Alcohol and Drug Abuse Patient Records regulations: The Federal rules restrict any use of the information to criminally investigate or prosecute any alcohol or drug abuse patient.[facility] the event this information is protected by the Federal Confidentiality of Alcohol and Drug Abuse Patient Records regulations: The Federal rules restrict any use of the information to criminally investigate or prosecute any alcohol or drug abuse patient.[facility] the event this information is protected by the Federal Confidentiality of Alcohol and Drug Abuse Patient Records regulations: The Federal rules restrict any use of the information to criminally investigate or prosecute any alcohol or drug abuse patient.[facility] Reason for Visit (unrecogniz ed section and content) Specialty Diagnoses / Procedures Referred By Noreen t Referred To Contact [facility] / [facility] Diagnoses ear pain, ear pain, cough losing voice, x4 days Procedures NEW SAME DAY [facility] [address] [place] [address] Referral ID Status Reason Start Date Expiration Date V isits Requested Visits Authorized [id number] Outside PCP 11/30/2021 02/28/2022 1 1 Reason Comments Mouth Sores Pt reported painful mouth sores x1 week, completed ATB. Specialty Diagnoses / Procedures Referred By Contruthann t Referred To Contact [facility] / [facility] Diagnoses mouth hurts, possible thrust, x1 week. 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 [employer] provides no warranty or guarantee of the accuracy or completeness of information in this document.
[2023-04-01 12:53] LABS: Anion Gap 5 (5-15); BUN 10 mg/dL (7-18); BUN/Creat Ratio 11.3 RATIO (10-20); Calcium,Total 9.2 mg/dL (8.5-10.1); Chloride 106 mmol/L (98-107); Cholesterol 185 mg/dL (200); Creatinine, Serum 0.88 mg/dL (0.55-1.02); EST Glomerular Filtration Rate 69 mL/min (>60); Est Glom Filt Rate - Afr Amer 84 mL/min (>60); Glucose 86 mg/dL (74-106); High Density Lipoprotein 62 mg/dL; Potassium 4.5 mmol/L (3.5-5.1); Sodium Level 137 mmol/L (136-145); Triglycerides 140 mg/dL; Very Low Density Lipoprotein 28 mg/dL (5-40)
== END | disposition home or self-care (01) ==
LOC: BIMLAB 11:06
PROVIDERS: PCP Internal Medicine; Visit Provider Internal Medicine
DX: I10 Essential (primary) hypertension (principal)
CPT/HCPCS: 36415; 80048; 80061

== ENCOUNTER → 2023-04-04 | Outpatient (CLI) | payer BC, SELFPAY ==
[2023-04-04 13:48] LABS: AST(SGOT) 14 U/L (15-37); Alanine Aminotransfer ALT/SGPT 26 U/L (13-56); Albumin, Serum 4.1 g/dL (3.2-5.0); Alkaline Phosphatase 171 U/L (45-117); Globulin 3.2 g/dL (2.2-4.2); Protein, Total 7.3 g/dL (6.4-8.2)
--- OUTSIDE RECORDS SUMMARY | 2023-04-04 14:16 | XMS RPT_ITS | CCD ---
Author Name Unknown Address [address] [facility] [address] [place] [address] Organization [facility] Care Team Providers Care Maintenance Repairman Name Role Phone DEVIN RAMIREZ Admitting Unavailable [...] BEE)] Drug Allergy 01-06-2020 Shortness of Breath [facility] Medications Current Medications Medication Drug Class(es) Dates [...] Pressure Non-Invasive 69 mm[Hg] YARIEL FLOWERS MD [facility] 01-16-2023 21:02-0500 Heart rate 75 /min YARIEL FLOWERS MD [address] [place] [address] 01-16-2023 21:02-0500 Respiratory rate 18 /min YARIEL FLOWERS MD [address] [place] [address] 01-16-2023 21:02-0500 Systolic Blood Pressure Non-Invasive 113 mm[Hg] YARIEL FLOWERS MD [address] [place] [address] 01-16-2023 16:17-0500 Diastolic Blood Pressure Non-Invasive 83 mm[Hg] YARIEL FLOWERS MD [address] [place] [address] 01-16-2023 16:17-0500 Heart rate 68 /min YARIEL FLOWERS MD [address] [place] [address] 01-16-2023 16:17-0500 Respiratory rate 18 /min YARIEL FLOWERS MD [address] [place] [address] 01-16-2023 16:17-0500 Systolic Blood Pressure Non-Invasive 136 mm[Hg] YARIEL FLOWERS MD [address] [place] [address] 01-16-2023 13:47-0500 Body temperature 98.24 [degF] YARIEL FLOWERS MD [address] 01-16-2023 13:47-0500 Body weight 71.6 kg YARIEL FLOWERS MD [address] [place] [address] 01-16-2023 13:47-0500 Diastolic Blood Pressure Non-Invasive 73 mm[Hg] YARIEL FLOWERS MD [address] [place] [address] 01-16-2023 13:47-0500 Heart rate 84 /min YARIEL FLOWERS MD [address] [place] [address] 01-16-2023 13:47-0500 Respiratory rate 18 /min YARIEL FLOWERS MD [address] [place] [address] 01-16-2023 13:47-0500 Systolic Blood Pressure Non-Invasive 127 mm[Hg] YARIEL FLOWERS MD [address] [place] [address] 11-30-2022 15:18-0400 Diastolic Blood Pressure Non-Invasive [address] D[address] [facility] 11-30-2022 15:18-0400 Systolic Blood Pressure Non-Invasive [address] DPM [facility] 11-30-2022 14:04-0400 Body temperature 97.52 [degF] DR AIRAM MARAVILLA DPM [facility] 11-30-2022 14:04-0400 Diastolic Blood Pressure Non-Invasive [address] DPM [facility] 11-30-2022 14:04-0400 Heart rate 78 /min DR AIRAM MARAVILLA DPM [facility] 11-30-2022 14:04-0400 Respiratory rate 16 /min DR AIRAM MARAVILLA DPM [facility] 11-30-2022 14:04-0400 Systolic Blood Pressure Non-Invasive [address] DPM [facility] 11-30-2022 13:15-0400 Body temperature 97.52 [degF] DR AIRAM MARAVILLA DPM [facility] 11-30-2022 13:15-0400 Diastolic Blood Pressure Non-Invasive [address] DPM [facility] 11-30-2022 13:15-0400 Heart rate 82 /min DR AIRAM MARAVILLA DPM [facility] 11-30-2022 13:15-0400 Mean blood pressure 108 mm[Hg] DR AIRAM MARAVILLA DPM [facility] 11-30-2022 13:15-0400 Respiratory rate 16 /min DR AIRAM MARAVILLA DPM [facility] 11-30-2022 13:15-0400 Systolic Blood Pressure Non-Invasive [address] DPM [facility] 11-30-2022 13:00-0400 Heart rate 84 /min DR AIRAM MARAVILLA DPM [facility] 11-30-2022 12:55-0400 Heart rate 81 /min DR AIRAM MARAVILLA DPM [facility] 11-30-2022 12:45-0400 Mean blood pressure 100 mm[Hg] DR AIRAM MARAVILLA DPM [facility] 11-30-2022 12:30-0400 Body temperature 96.98 [degF] DR AIRAM MARAVILLA DPM [facility] 11-30-2022 12:30-0400 Mean blood pressure 101 mm[Hg] DR AIRAM MARAVILLA DPM [facility] 11-30-2022 12:20-0400 Respiratory Rate - Anes 0 br/min DR AIRAM MARAVILLA DPM [facility] 11-30-2022 12:15-0400 Respiratory Rate - Anes 15 br/min DR AIRAM MARAVILLA DPM [facility] 11-30-2022 12:10-0400 Respiratory Rate - Anes 16 br/min DR AIRAM MARAVILLA DPM [facility] 11-30-2022 11:05-0400 Body temperature 96.8 [degF] DR AIRAM MARAVILLA DPM [facility] 11-30-2022 10:45-0400 Body temperature 96.8 [degF] DR AIRAM MARAVILLA DPM [facility] 11-30-2022 06:51-0400 Body height 157.[address] AIRAM MARAVILLA DPM [facility] 11-30-2022 06:51-0400 Body weight 71.[address] AIRAM MARAVILLA DPM [facility] 11-30-2022 06:51-0400 Heart rate 67 /min DR AIRAM MARAVILLA DPM [facility] 10-31-2022 19:23-0400 Body temperature 98.4 [degF] Sheela Champion HAND BASEBALL SEWER.APPLICATIONS SUPPORT ENGINEER Work Phone: [facility] 10-31-2022 19:23-0400 Body weight 68.04 kg Sheela Champion HAND BASEBALL SEWER.APPLICATIONS SUPPORT ENGINEER Work Phone: [facility] 10-31-2022 19:23-0400 Diastolic blood pressure 82 mm[Hg] Sheela Champion HAND BASEBALL SEWER.APPLICATIONS SUPPORT ENGINEER Work Phone: [facility] 10-31-2022 19:23-0400 Heart rate 79 /min Sheela Champion HAND BASEBALL SEWER.APPLICATIONS SUPPORT ENGINEER Work Phone: [facility] 10-31-2022 19:23-0400 Respiratory rate 18 /min Sheela Champion HAND BASEBALL SEWER.APPLICATIONS SUPPORT ENGINEER Work Phone: [facility] 10-31-2022 19:23-0400 SaO2% (BldA) [Mass fraction] 97 % Sheela Champion HAND BASEBALL SEWER.APPLICATIONS SUPPORT ENGINEER Work Phone: [facility] 10-31-2022 19:23-0400 Systolic blood pressure 136 mm[Hg] Sheela Champion HAND BASEBALL SEWER.APPLICATIONS SUPPORT ENGINEER Work Phone: [facility] 04-06-2022 17:29-0500 Body temperature 98.1 [degF] Krislyn Aberegg PA Work Phone: [facility] 04-06-2022 17:29-0500 Body weight 64.32 kg Krislyn Aberegg PA Work Phone: [facility] 04-06-2022 17:29-0500 Diastolic blood pressure 84 mm[Hg] Krislyn Aberegg PA Work Phone: [facility] 04-06-2022 17:29-0500 Heart rate 73 /min Krislyn Aberegg PA Work Phone: [facility] 04-06-2022 17:29-0500 Respiratory rate 18 /min Krislyn Aberegg PA Work Phone: [facility] 04-06-2022 17:29-0500 SaO2% (BldA) [Mass fraction] 99 % Krislyn Aberegg PA Work Phone: [facility] 04-06-2022 17:29-0500 Systolic blood pressure 128 mm[Hg] Krislyn Aberegg PA Work Phone: [facility] 11-30-2021 19:15-0400 Body temperature 97.7 [degF] Kaylen Athy PA-C Work Phone: [facility] 11-30-2021 19:15-0400 Body weight 70.94 kg Kaylen Athy PA-C Work Phone: [facility] 11-30-2021 19:15-0400 Diastolic blood pressure 78 mm[Hg] Kaylen Athy PA-C Work Phone: [facility] 11-30-2021 19:15-0400 Heart rate 83 /min Kaylen Athy PA-C Work Phone: [facility] 11-30-2021 19:15-0400 Respiratory rate 18 /min Kaylen Athy PA-C Work Phone: [facility] 11-30-2021 19:15-0400 SaO2% (BldA) [Mass fraction] 97 % Kaylen Athy PA-C Work Phone: [facility] 11-30-2021 19:15-0400 Systolic blood pressure 122 mm[Hg] Kaylen Athy PA-C Work Phone: [facility] Encounters Encounter Date Encounter Type Care Provider Facility Start: 03-26-2023 Reftoy Snow Work Phone: [facility] Start: 01-16-2023 End: 01-17-2023 Emergency department patient visit ARYA TAO PA-C Facility:A Start: 01-16-2023 Telephone encounter Gala Montana APRN.[facility] Work Phone: [facility] Procedures Date Procedure Procedure Detail Performing Clinician Start: 10-31-2022 STREP A MOLECULAR (POC) Gala Montana APRN.[facility] Work Phone: Start: 02-11-[address] AIRAM MARAVILLA DPM Start: 02-11-[address] ALESSANDRO MARAVILLA DPM Start: 02-11-[address] AIRAM MARAVILLA DPM Hysterectomy DR AIRAM MARAVILLA DPM Plan of Treatment Date Care Activity Detail Author Start: 02-11-2023 Depression Assessment Depression Ass [facility] Start: 10-31-2022 End: 11-14-2022 COVID & INFLUENZA A/B & RSV NAAT, ROUTINE [facility] Work Phone: Immunizations Immunization Date Immunization Notes Care Provider Keon espinoza 01-07-2019 influenza virus vacc ine, unspecified formulation Sheela Champion APRN.[facility] Work Phone: [facility] Payers Date Payer Category Payer Unknown [id number] 2018 Unknown [employer] PPO [id number] 2018-Present [phone] [address] [place] [address] PPO [id number] 1960 Unknown [id number] 1960 Unknown [id number] 1960 Unknown [id number] 1960 Unknown [id number] Social History Date Type Detail Facility Start: 11-30-2021 End: 11-30-2022 Tobacco smoking status NHIS Never smoked tobacco [facility] Start: 11-30-2021 Tobacco use and exposure Smoke less tobacco non-user [facility] Start: 11-30-2021 End: 01-15-2023 Alcohol intake Current drinker of alcohol (finding) [facility] Start: 11-21-2020 Alcohol Comment 3 times weekly [facility] Start: 1960 Sex Assigned At Not on file [facility] Start: 01-18-2020 End: 10-31-2022 History of Social function [facility] Start: 01-18-2020 End: 10-31-2022 Tobacco use panel [facility] National Score (1-10 0), lower number is lower risk Not on file [facility] Sex Assigned At Female [facility] Medical Equipment Procedure Code Equipment [...] Assessment Result Facility 11-30-2022 Functional Status Independent [facility] 11-30-2022 Functional Status ice on [facility] 11-30-2022 Functional Status [facility] 11-30-2022 Functional Status Maintained [facility] Mental Status Date Assessment Result Facility 11-30-2022 Mental Status Orientation Oriented x 4 [facility] 11-30-2022 Mental Status [facility] Clinical Notes 11-23-2020 to 03-28-2023 Telephone Encounter - Shannon Crook RN - 03/28/2023 10:07 AM ESTTelephone Encounter - Bettina Stubbs APRN.CNP - 03/26/2023 4:33 PM ESTTelephone Encounter - Blaire Hudson - 01/16/2023 7:25 AM EST Note Date & Type Note Facility 03-28-2023 Miscellaneous Notes Called pt. Verified pt by name and . Gave pt social media analyst note. Pt agreeable to plan. Pt will [...] overdue for appointment. Routing refill request to KNITTED CLOTH EXAMINER mckee for partial refill. Will advise patient when calling her back to schedule follow up visit. Monik Boo RN March 26, 2023 2:48 PM Patient called requesting refill on Oxybutynin. documented in this encounter [facility] 01-16-2023 Note ORIGINAL EXAMINATION: CT OF THE [...] Date: 01/16/2023 4:14:18 PM Ordering Provider: ARYA [facility] 01-16-2023 Miscellaneous Notes Patient notified of results and provider's instructions. Patient verbalizes understanding. Tere Rios RN Left message for patient to call back and ask for a triage nurse for results. Blaire Hudson Patient was positive for COVID. Patient should quarantine for 5 days then mask for another 5 days. [id number] medications as appropriate for treatment. Patient was negative for flu and RSV. documented in this encounter [facility] 01-15-2023 Note HNO ID: [id number] Author: Sheela Champion APRN.MARIA ISABEL Service: ? Author Type: Nurse Practitioner Type: Progress Notes Filed: 01/15/2023 4:38 PM Note Text: This note was created using Candy Labriter. Subjective Connie Greenberg is a 62 year old female. 62 year old female with PMH HTN, hyperlipidemia, COPD presents for ear pain. Acute onset 2 days ago +right ear pain +throbbing +cough +productive +fatigue +body aches Denies SOB or dyspnea Denies CP Endorses a home COVID was positive. The history is provided by the patient. No obstetrics gyn was used. Ear Pain This is a [...] at bedtime. be (more content not included)... [facility] 11-30-2022 Hospital Discharge instructions Patient Education 11/30/2022 14:03:24 - [facility] General Discharge Guidelines (10/26/2022) (CUSTOM) ALEJANDRO SAME [...] Care 07/19/2022 16:00:11 With:jamal Address: When: Unknown [facility] 11-30-2022 Summary of episode note Discharge Instructions Thank you for allowing [facility] to assist you with your healthcare needs. [...] Post-op pain Duration: 7 Days Pickup at [facility] Unchanged albuterol (Ventolin MDI HFA) 2 [...] a day Unchanged herbal/ nutritional product (Evening [place] Oil 1000 mg oral capsule) See instructions [...] a day Unchanged omega-3 polyunsaturated fatty acids (Newton-3 1050 mg oral capsule) by mouth Three [...] Three (3) times a day Pharmacy Information [facility]: [address] [place], [place] [id number] [phone] Please take this list to your next doctor s visit. Bring all medications you take, including over the counter medications, herbals and other supplements with you to your doctor s visit. Patients and families are reminded to discard old lists and to update any records with all medication providers or retail pharmacies. Education Materials [facility] SAME DAY SURGERY DISCHARGE INSTRUCTIONS PLEASE FOLLOW [...] to receive it can visit one of [facility] vaccine clinics. There are many vaccine clinic locations within the [facility]. For locations and available times, please visit [email or web address] It is important to note that some COVID mobile vaccine clinics are held outdoors and may be canceled in rainy or stormy conditions. To learn more about pediatric vaccinations (ages 5-11), we invite you to visit the [facility] webpage. [email or web address] To learn more about the COVID-19 vaccine, we invite you to visit the CDC website for a list of frequently asked questions.https://www.cdc.gov/eldon navirus/2019-ncov/vaccines/faq.htm l [facility] Patient Portal Access Instructions: Stay connected with your healthcare team and access your personal medical information anytime with the [facility] Patient Portal. Please follow the directions below to create your [facility] account: 1.Access the email account you provided upon registration to the hospital/physician office.2.Look for an invitation email from [facility].3.Open the email and access the invitation link: Accept Invitation to [facility].4.Fill in the required medina to create your account. To access your account, visit [email or web address]. Click the blue button labeled Access Patient [...] you will allow to register on the [facility] Patient Portal for access to your information. You can also access the [facility] Patient Portal on the [employer] Anywhere los. Simply click on Patient Portal and then log into your account. If you would like to receive a full copy of your medical records, please contact the [facility] Medical Records Department by calling [phone], Saturday through Saturday between 8 a.m. and [...] Call your local pharmacy or go to [email or web address] to find one close to you.3.Make use of household items: Use cat litter or old coffee grounds to dispose medications if other options are not available. Mix your drugs with these household products, seal them in an airtight container and throw it into the garbage. Call [facility]: [phone] to be sure your drugs can be [...] aware that I should contact my doctor. Patient/Grades 1 Thru 5 Teacher Signature: Date/Time: Relationship to Patient: ___ Witness Name/Signature: Date/Time: [facility] 11-30-2022 Anesthesiology Consult note Patient: CONNIE [...] ALEJANDRA DEMPSEY MD on 11/30/2022 01:[address] [facility] 11-30-2022 Note ORIGINAL EXAMINATION: SPOT FLUOROSCOPIC [...] Date: 11/30/2022 12:19:24 PM Ordering Provider: AIRAM [facility] 11-30-2022 Anesthesiology Progress note Patient: CONNIE [...] 1 cap(s), Oral, BID, 0 Refill(s) Evening Stur[place] Oil 1000 mg oral capsule: See Instructions, [...] 0 Refill(s) OLANZapine: Oral, qDay, 0 Refill(s) Newton-3 1050 mg oral capsule: Oral, TID, 0 [...] Problem list: Medical Anxiety / SNOMED CT 46060866 / Confirmed Bipolar disorder / SNOMED CT 70206588 / Confirmed Chronic back pain / SNOMED CT 496342463 / Confirmed Depression / SNOMED CT 56394983 / Confirmed Hyperlipidemia / SNOMED CT 395384299 / Confirmed Hypertension / SNOMED CT 4314292856 / Confirmed Sciatic nerve pain / SNOMED CT 69646640 / Confirmed, Active Problems (7) Anxiety Bipolar disorder Chronic back pain Depression Hyperlipidemia Hypertension Sciatic nerve pain Histories Past Medical History: Active Hypertension (8958926846) Hyperlipidemia (173492108) Anxiety (39602235) Bipolar disorder (08042236) Depression (56445598) Chronic back pain (771140853) Sciatic nerve pain (53876937) Family History: Patient was adopted. Asthma Daughter Son Mental illness Son Procedure history: Endometrial ablation (477557148) in 1997 at 37 Years. section (54394045) in 1990 at 30 Years. Tonsillectomy (780727826) in 1967 at 7 Years. Hysterectomy (331391378). Social History Social & Psychosocial Habits Alcohol [...] None Living situation: Home with assistance Primary Upset Welding Machine Operator: Aashish Safe place to go: Yes Lives In 1st floor bathroom, 1st floor laundry, 2nd floor bedroom, Split level home Current Home Treatments None Nutrition/Health 11/30/2022 Type of diet: Regular Appetite Excellent Eating Difficulties None . Physical Examination Vital Signs(last 24 hrs) Last Charted Resp Rate 16 br/min (NOV 30 06:51) PXU342 mmHg (NOV 30 06:51) DBP81 mmHg (NOV 30 06:51) Measurements from flowsheet : Measurements 11/30/2022 6:51 EDT Height 157.5 cm Height in inches 62 inch(es) Admission Weight 71.8 kg Weight Lbs 158 lb Weight Method Actual Arimo Body Weight 50.12 kg Admission Body Mass [...] Ca 9.1(NOV 30) . Assessment and Plan [place] Society of Anesthesiologists (ASA) physical status classification: [...] RAZ WOOD MD on 11/30/2022 08:[address] [facility] 10-31-2022 Note HNO ID: [id number] Author: Sheela Champion APRN.MARIA ISABEL Service: ? Author Type: Nurse Practitioner Type: Progress Notes Filed: 11/07/2022 2:27 PM Note Text: This note was created using Candy Labriter. Subjective Connie Greenberg is a 62 year old female. 62 year old female with no PMH presents for illness. Acute onset 10 days ago +cough +productive . +sore throat +ear pain +fatigue Denies SOB or dyspnea. Denies tobacco usage. Has tried OTC medicines without relief. The history is provided by the patient. No obstetrics gyn was used. Cough This is a new [...] as needed. (Patient (more content not included)... [facility] 10-31-2022 History of Present illness Narrative This note was created using Wanderful Media. Subjective Connie Greenberg is a 62 year old female. Acute onset 10 days ago +cough +sore throat +ear pain Cough Review of Systems Respiratory: Positive for cough. Objective BP 136/82 Pulse 79 Temp 36.9 C (98.4 F) (Tympanic) Resp 18 Wt 68 kg (150 lb) SpO2 97% BMI 27.44 kg/m Physical Exam Assessment and Plan documented in this encounter [facility] 05-07-2022 Note HNO ID: [id number] Author: Gordon Vance APRN.MARIA ISABEL Service: ? [...] by mouth daily (more content not included)... [facility] 04-06-2022 Note HNO ID: [id number] Author: ZAHNNA Holly Service: ? Author Type: Physician Hyperion Essbase Developer Type: Progress Notes Filed: 04/06/2022 5:37 PM Note Text: This note was created using Wanderful Media. Subjective Connie Greenberg is a 61 year [...] use: Never Revi (more content not included)... [facility] 04-06-2022 History of Present illness Narrative This note was created using Wanderful Media. Subjective Connie Greenberg is a 61 year [...] Anxiety and depression Arthritis Asthma Bipolar disorder ([facility]) CVA (cerebral vascular accident) (HCC) Diarrhea, functional [...] evaluation. ZHANNA Holly documented in this encounter [facility] 03-12-2022 Influenza virus A and B RNA and SARS-CoV-2 (COVID-19) N gene panel WILMER+probe (Resp) COVID 19 RESULT: SARS-CoV-2 (Agent of COVID-19) Not Detected by RT-PCR or equivalent method. This test was developed and its performance characteristics determined by [facility]'s [facility] [place]. This test has been authorized by FDA under an Emergency Use Authorization (EUA). This test has been validated in accordance with the FDA's Guidance Document Policy for Diagnostics Testing in Laboratories Certified to Perform High Complexity Testing under CLIA prior to Emergency use Authorization for Coronavirus Disease 2019 during the Public Health Emergency issued on April 11, 2019. Test performed by [facility], [facility] [place], [facility] [place] [address]. INFLUENZA A PCR: Negative for Influenza A by RT-PCR INFLUENZA B PCR: Negative for Influenza B by RT-PCR [facility] Thrush- Primary Candidiasis of mouth [facility] Diagnosis Upper respiratory tract infection, unspecified type- Primary Acute cough [facility] Diagnosis OAB (overactive bladder) [N32.81]- Primary Hypertonicity of bladder documented in this encounter [facility] Discharge instructions No data available for this section [facility] Progress note No data available for this section [facility] Summary Purpose Family History No Family [...] DATE CREATED AUTHOR AUTHOR'S ORGANIZ ATION 03/05/2020 [facility] DATE CREATED AUTHOR AUTHOR'S ORGANIZ ATION 03/11/2021 [facility] DATE CREATED AUTHOR AUTHOR'S ORGANIZ ATION 01/18/2023 [facility] DATE CREATED AUTHOR AUTHOR'S ORGANIZ ATION 01/30/2023 [facility] ([place]) Source Comments (unrecognize d section and content) In the event this informatio n is protected by the Federal Confidentiality of Alcohol and Drug Abuse Patient Records regulations: The Federal rules restrict any use of the information to criminally investigate or prosecute any alcohol or drug abuse patient.[facility] event this information is protected by the Federal Confidentiality of Alcohol and Drug Abuse Patient Records regulations: The Federal rules restrict any use of the information to criminally investigate or prosecute any alcohol or drug abuse patient.[facility] the event this information is protected by the Federal Confidentiality of Alcohol and Drug Abuse Patient Records regulations: The Federal rules restrict any use of the information to criminally investigate or prosecute any alcohol or drug abuse patient.[facility] the event this information is protected by the Federal Confidentiality of Alcohol and Drug Abuse Patient Records regulations: The Federal rules restrict any use of the information to criminally investigate or prosecute any alcohol or drug abuse patient.[facility] the event this information is protected by the Federal Confidentiality of Alcohol and Drug Abuse Patient Records regulations: The Federal rules restrict any use of the information to criminally investigate or prosecute any alcohol or drug abuse patient.[facility] Reason for Visit (unrecogniz ed section and content) Specialty Diagnoses / Procedures Referred By Noreen t Referred To Contact Internal Medicine / [facility] Diagnoses ear pain, ear pain, cough losing voice, x4 days Procedures NEW SAME DAY [facility] [address] [place] [address] Referral ID Status Reason Start Date Expiration Date V isits Requested Visits Authorized [id number] Outside PCP 11/30/2021 02/28/2022 1 1 Reason Comments Mouth Sores Pt reported painful mouth sores x1 week, completed ATB. Specialty Diagnoses / Procedures Referred By Contruthann t Referred To Contact Internal Medicine / [facility] Diagnoses mouth hurts, possible thrust, x1 week. just finished antibiotic and steroid Procedures NEW SAME DAY [facility] [address] [place] [address] Referral ID Status Reason Start Date Expiration Date V isits Requested Visits Authorized [id number] Outside PCP 04/06/2022 07/05/2022 1 1 Reason Comments Cough Cough, ST and laryng itis x 1.5 weeks Reason Comments Results Care Teams (unrecognized sec tion and content) Maintenance Repairman Relationship Specialty Start Date End Date Margarita Garcia MD [address] [place] [address] PCP - General Internal Medicine 11/23/20 Maintenance Repairman Relationship Specialty Start Date End Date Margarita Garcia MD [address] [place], [place] [id number] PCP - General Internal Medicine 11/23/20 FOR [...] BE BASED ON THE PRIMARY CLINICAL RECORDS. [employer] provides no warranty or guarantee of the accuracy or completeness of information in this document.
== END | disposition home or self-care (01) ==
LOC: LAB 13:11
PROVIDERS: PCP Internal Medicine; Referring Provider Student in an Organized Health Care Education/Training Program; Visit Provider Student in an Organized Health Care Education/Training Program
DX: F10.21 Alcohol dependence, in remission (principal)
CPT/HCPCS: 36415; 80076

== ENCOUNTER 2023-04-29 14:36 | Emergency (ER) | payer MEDICAID, SELFPAY ==
[2023-04-29 14:37] VITALS: BP 144/69; PULSE 76; RESP 16; TEMP 36.3; O2SAT 99; BMI 31.0
--- NOTE | 2023-04-29 15:50 | EDS_ITS ---
HPI History of Present Illness Chief Complaint: Eye Problem Narrative Narrative: 62-year-old female presenting with eye redness and irritation. She states she recently had a sinus infection and this is improving. She was coughing a lot and sneezing a lot. She states yesterday she had an episode of vomiting and this resolved. She is not nauseous. She states she went to urgent care and initially was put on drops for this. When she went back today because her eye redness is worsening they told her she needed to come to the ER for a blood clot test for her eyes. Patient denies any pain. She has some mild irritation.Her vision is normal. [facility] Medical History Alcohol use disorder, severe, in early remission Anemia Anxiety Arthritis Asthma Back pain Bee sting reaction Bipolar depression Bipolar II disorder Chronic headache Chronic pain COPD (chronic obstructive pulmonary disease) CVA (cerebral vascular accident) Dermatitis, contact Difficulty swallowing solids Dizziness Emphysema lung Fibromyalgia Flu vaccine need GERD (gastroesophageal reflux disease) GI problem Health care maintenance Hernia History of stroke Hx of migraine headaches Hyperlipidemia Hypertension Hyponatremia IBS (irritable bowel syndrome) Insomnia Low libido Lumbar radiculopathy Memory impairment OAB (overactive bladder) Orthostatic hypotension CHIQUI (obstructive sleep apnea) Overweight (BMI 25.0-29.9) Pericardial effusion (noninflammatory) Right otitis media with effusion right scapular mass Sciatica Screening for STD (sexually transmitted disease) Seasonal allergies Sinusitis Vaginal atrophy Home Medications albuterol sulfate 90 mcg/actuation aerosol inhaler 2 puff inhalation Q4H PRN PRN Sob &/Or Wheezing 12/26/16 [History Last Taken Unknown] cholecalciferol (vitamin D3) 125 mcg (5,000 unit) disintegrating tablet 5,000 unit PO DAILY vitamin 12/26/16 [History Last Taken Unknown] cyanocobalamin (vitamin B-12) 500 mcg tablet 500 mcg PO DAILY vitamin 12/26/16 [History Last Taken Unknown] aspirin 81 mg chewable tablet 81 mg PO DAILY@0800 blood thinner 12/27/16 [Rx Last Taken Unknown] coenzyme Q10 30 mg capsule 60 mg PO DAILY vitamin 03/07/20 [History Last Taken Unknown] hhjzmwjx-xnzy-mcouq acid 240 mcg-vit K 120 jns-asnqmu-zspy 293 tablet (Alive Women's 50 Plus (fruit-veg blend)) 1 tab PO DAILY vitamin 03/07/20 [History Last Taken Unknown] pyridoxine (vitamin B6) 100 mg tablet 100 mg PO DAILY vitamin 04/01/20 [History Last Taken Unknown] estradiol 0.01% (0.1 mg/gram) vaginal cream (Estrace) 1 g vaginal 2XW hormone 05/08/21 [History Last Taken Unknown] oxybutynin chloride 15 mg tablet,extended release 24 hr 30 mg PO DAILY bladder 04/17/22 [History Last Taken Unknown] magnesium 200 mg tablet 400 mg PO QHS vitamin 09/13/22 [History Last Taken Unknown] rimegepant 75 mg disintegrating tablet (Nurtec ODT) 75 mg PO QODAY mckinney 09/13/22 [History Last Taken Unknown] buspirone 15 mg tablet mg PO 03/19/23 [History Last Taken Unknown] escitalopram oxalate 10 mg tablet 10 mg PO DAILY depression #30 tabs 03/19/23 [Rx Last Taken Unknown] famotidine 20 mg tablet mg PO DAILY 03/19/23 [History Last Taken Unknown] fluticasone furoate 100 mcg-vilanterol 25 mcg/dose inhalation powder (Breo Ellipta) inhalation 03/19/23 [History Last Taken Unknown] lamotrigine 200 mg tablet 200 mg PO QHS seizure 30 days #30 tabs 03/19/23 [Rx Last Taken Unknown] olanzapine 10 mg tablet 10 mg PO QHS bipolar #30 tabs 03/19/23 [Rx Last Taken Unknown] prazosin 1 mg capsule (Minipress) 1 mg PO QHS nightmares 30 days #30 caps 03/19/23 [Rx Last Taken Unknown] montelukast 10 mg tablet 10 mg PO DAILY asthma #30 tabs 03/27/23 [Rx Last Taken Unknown] omeprazole 40 mg capsule,delayed release 40 mg PO BID stomach #60 caps 03/27/23 [Rx Last Taken Unknown] simvastatin 20 mg tablet 20 mg PO QHS hld #30 tabs 03/27/23 [Rx Last Taken Unknown] naltrexone 50 mg tablet 25 mg (1/2 x 50 mg) PO DAILY #30 tabs 03/28/23 [Rx Last Taken Unknown] amoxicillin 875 mg-potassium clavulanate 125 mg tablet 1 tab PO Q12H #20 tabs 02/19/24 [Rx Last Taken Unknown] buspirone 15 mg tablet 15 mg PO TID 30 days #90 tabs 04/01/23 [Rx Last Taken Unknown] lisinopril 20 mg tablet 20 mg PO DAILY bp #90 tabs 04/10/23 [Rx Last Taken Unknown] oxymetazoline 0.05 % nasal spray (Nasal Decongestant (oxymetazoline)) 2 spray intranasal Q12H PRN nasal congestion 3 days #15 mL 04/29/23 [Rx Last Taken Unknown] Allergy/AdvReac Type Severity Reaction Status Date / Time bee venom protein (honey bee) Allergy Mild SWELLING/ Verified 04/29/23 14:38 SOB Family History Unknown Past medical history not known due to adoption Surgical History H/O laparoscopy History of total hysterectomy Hx of breast biopsy Social History household members: spouse Smoking Status: Never smoker alcohol intake: current alcohol intake frequency: 3 or more drinks per day Alcohol type: beer and hard liquor substance use type: does not use caffeine: Yes what type of physical activity do you participate in: walking frequency: 1-2 times per week seatbelt use: always do you feel safe at home: Yes additional social history: -Aashish ROS ROS ED Constitutional Constitutional ED: Denies chills, fever(s) or sweats Eyes Eyes: Reports other Details: Redness bilaterally ; Denies blurry vision or change in vision ENT ENT ED: Denies ear pain or sore throat Cardiovascular Cardiovascular: Denies chest pain, palpitations or racing heartbeat Respiratory/Chest Respiratory/Chest: Denies cough, dyspnea or sputum Gastrointestinal Gastrointestinal: Denies abdominal pain, constipation, diarrhea, nausea or vomiting Genitourinary Genitourinary ED: Denies dysuria, hematuria or urinary frequency Musculoskeletal Musculoskeletal: Denies arthralgias, myalgias or neck pain Integumentary Denies abscess, Abrasions or rash Neurologic Neurologic: Denies headache(s), paresthesias or weakness Psychiatric Psychiatric: Denies anxiety, depression, suicidal ideation or suicidal thoughts Endocrine Endocrinology: Denies polydipsia or polyuria EXAM Physical Exam Const Vital Signs: 04/29/23 14:37 Temperature 97.4 F L Temperature Source Temporal Pulse Rate 76 Respiratory Rate 16 Blood Pressure 144/69 H Blood Pressure Mean 94 Pulse Ox 99 Oxygen Delivery Method Room Air Positive well nourished General Appearance ED: NAD HEENT Reports TM's clear HEENT Narrative: Bilateral subconjunctival hemorrhages. Lids and lashes normal. No foreign bodies. No tearing. atraumatic and trauma Tympanic Membrane ED: Yes TM's clear Resp normal respiratory effort and no retractions Cardio regular rate and regular rhythm Neuro oriented x3 and CN's II-XII intact bilaterally Skin no wounds MDM MDM MDM Narrative Medical decision making narrative: Patient presenting with bilateral subconjunctival hemorrhages. Otherwise her HEENT exam is unremarkable. She does admit that she coughs more at night and she does believe is due to postnasal drip. For this reason I will give her some Afrin she can take at bedtime. She has ccel-atr-htydiuo cough medicine which helps her during the day. I do not believe she needs further workup at this point. Patient comfortable with plan and discharged home in stable condition. Impression: 1. Bilateral subconjunctival hemorrhage Discharge Plan Triage Chief Complaint: Eye Problem ED Provider: Bartolome Anguiano Dx/Rx/DC Orders Instructions: ED Subconjunctival Hemorrhage Prescriptions: New oxymetazoline [Nasal Decongestant (oxymetazl)] 0.05 % spray,non-aerosol 2 spray intranasal Q12H PRN (Reason: nasal congestion) 3 Days Qty: 15 0RF No Action Alive Women's 50 Plus (blend) 240-120-300 mcg tablet 1 tab PO DAILY pyridoxine (vitamin B6) 100 mg tablet 100 mg PO DAILY oxybutynin chloride 15 mg tablet extended release 24hr 30 mg PO DAILY estradiol [Estrace] 0.01 % (0.1 mg/gram) cream 1 g vaginal 2XW buspirone 15 mg tablet PO famotidine 20 mg tablet PO DAILY fluticasone furoate-vilanterol [Breo Ellipta] 100-25 mcg/dose blister with device inhalation Patient Comments: INHALE 1 PUFF ONCE DAILY FOR ASTHMA escitalopram oxalate 10 mg tablet 10 mg PO DAILY Qty: 30 2RF lamotrigine 200 mg tablet 200 mg PO QHS 30 Days Qty: 30 2RF prazosin [Minipress] 1 mg capsule 1 mg PO QHS 30 Days Qty: 30 2RF olanzapine 10 mg tablet 10 mg PO QHS Qty: 30 2RF amoxicillin-pot clavulanate 875-125 mg tablet 1 tab PO Q12H Qty: 20 0RF naltrexone 50 mg tablet 25 mg PO DAILY Qty: 30 2RF cyanocobalamin (vitamin B-12) 500 MCG tablet 500 mcg PO DAILY albuterol sulfate 1 INHALER inhaler 2 puff INHALATION Q4H PRN PRN (Reason: Sob &/Or Wheezing) cholecalciferol (vitamin D3) 5,000 UNIT tablet,disintegrating 5,000 unit PO DAILY aspirin 81 MG tablet,chewable 81 mg PO DAILY@0800 0RF coenzyme Q10 30 mg capsule 60 mg PO DAILY magnesium 200 mg tablet 400 mg PO QHS Nurtec ODT 75 mg tablet,disintegrating 75 mg PO QODAY omeprazole 40 mg capsule,delayed release(DR/EC) 40 mg PO BID Qty: 60 0RF montelukast 10 mg tablet 10 mg PO DAILY Qty: 30 0RF simvastatin 20 mg tablet 20 mg PO QHS Qty: 30 0RF buspirone 15 mg tablet 15 mg PO TID 30 Days Qty: 90 2RF lisinopril 20 mg tablet 20 mg PO DAILY Qty: 90 1RF Primary Care Provider: Margarita Garcia Referrals: Margarita Garcia MD [Primary Care Provider] - Disposition Disposition: Home, Self Care
[2023-04-29 16:03] VITALS: BP 140/88; PULSE 74; RESP 18; TEMP 36.4; O2SAT 99
== END 2023-04-29 16:06 | disposition home or self-care (01) ==
PROVIDERS: Emergency Provider Student in an Organized Health Care Education/Training Program; PCP Internal Medicine; Visit Provider Student in an Organized Health Care Education/Training Program
DX: H11.33 Conjunctival hemorrhage, bilateral (principal); J44.9 Chronic obstructive pulmonary disease, unspecified; F31.81 Bipolar II disorder; Z86.73 Personal history of transient ischemic attack (TIA), and cerebral infarction without residual deficits; E78.5 Hyperlipidemia, unspecified; I10 Essential (primary) hypertension; G47.33 Obstructive sleep apnea (adult) (pediatric); Z79.899 Other long term (current) drug therapy; Z79.82 Long term (current) use of aspirin; F41.9 Anxiety disorder, unspecified; K21.9 Gastro-esophageal reflux disease without esophagitis; Z79.51 Long term (current) use of inhaled steroids; Z90.710 Acquired absence of both cervix and uterus; R09.82 Postnasal drip
CPT/HCPCS: 99282

== ENCOUNTER 2023-07-04 13:09 | Outpatient (CLI) | payer OTHER, MEDICAID, SELFPAY ==
--- NOTE | 2023-07-04 13:09 | BI_ITS ---
MAMMOGRAPHY - BILATERAL SCREENING 3-D TOMOSYNTHESIS REASON FOR EXAM: Female, 62 years old. Breast Cancer Screening PERTINENT HISTORY: No significant family history. TECHNIQUE: 2-D mammograms and 3-D Tomosynthesis of the breast (s) were performed. CAD was performed. COMPARISON: 01/19/2022 FINDINGS: The breast composition is composed of scattered fibroglandular density. Scattered benign calcifications are seen. No dense spiculated masses or suspicious microcalcifications are identified. No architectural distortion is identified. There is no skin thickening or retraction. There has been no significant change since the prior study. BI/SCRN MAMM (CAD)W/QUYNH BILAT IMPRESSION: No mammographic signs of malignancy. Routine yearly mammograms recommended. ASSESSMENT CATEGORY: BIRADS Category 1: Negative. A letter regarding these results will be sent to the patient by the facility within 30 days. FOLLOW UP RECOMMENDATION: Yearly follow up mammogram recommended. (A) Approximately 10% of breast cancers are not detected by mammography. A normal mammogram should not delay biopsy of a clinically suspicious abnormality. Electronically Signed: Eh Wayne MD at 17:38 EDT ,
--- NOTE | 2023-07-04 13:12 | BD_ITS ---
STUDY: DUAL ENERGY X-RAY ABSORPTIOMETRY / DXA REASON FOR EXAM: Female, 62 years old. Post menopausal TECHNIQUE: Bone Mineral Density (BMD) measurements of lumbar spine and bilateral hips were obtained. COMPARISON: None. FINDINGS: Lumbar Spine (L1-L4): g/cm2 (0.905) / T-score (-1.3) / Z-score (0.2) Findings are suggestive of normal bone density with a low fracture risk. Left Femur Total: g/cm2 (0.909) / T-score (-0.3) / Z-score (0.7) Left Femoral Neck: g/cm2 (0.668) / T-score (-1.6) / Z-score (-0.3) Right Femur Total: g/cm2 (0.917) / T-score (-0.2) / Z-score (0.8) Right Femoral Neck: g/cm2 (0.718) / T-score (-1.2) / Z-score (0.1) BD/Dexa Bone Density Study IMPRESSION: The patient is considered osteopenic as outlined below according to World [employer] Organization (WHO) criteria with a moderate fracture risk. Reference Information: The T-score is the number of standard deviations above or below the standard which is normal for young adults at their peak bone mineral density. The World Health Organization (WHO) interprets the T-scores as follows: Above -1 Normal bone density Between -1 and -2.5 Osteopenia Equal to / or below -2.5 Osteoporosis As a practical clinical guideline, osteopenia may be graded as follows: Mild -1 through -1.5 Moderate -1.6 through -2.0 Severe -2.1 through -2.4 The Z-score is the number of standard deviations above or below age-matched controls. A Z-score of less than -1.5 would be considered abnormal. References: 1. NIH Osteoporosis and Related Bone Diseases www osteo.org 2. International Society for Clinical Densitometry www iscd.org 3. National Osteoporosis Foundation www nof.org Electronically Signed: Bruce Ansari MD at 12:52 EDT ,
== END 2023-07-04 23:59 | disposition home or self-care (01) ==
LOC: OPBD 13:09
PROVIDERS: PCP Internal Medicine; Referring Provider Internal Medicine; Visit Provider Internal Medicine
DX: Z12.31 Encounter for screening mammogram for malignant neoplasm of breast (principal); Z78.0 Asymptomatic menopausal state
CPT/HCPCS: 77063; 77067; 77080

== ENCOUNTER → 2023-08-02 | Outpatient (CLI) | payer MEDICAID, SELFPAY ==
[2023-08-02 12:14] LABS: Absolute Neutrophil Count 4.1 X10^3/uL (2.0-7.7); Basophil# 0.01 X10^3/uL; Basophil% 0.2 % (0-1); Eosinophil# 0.02 X10^3/uL; Eosinophils% 0.3 % (0-5); Hematocrit 36.4 % (37-47); Hemoglobin 11.7 g/dL (12.0-15.0); Lymphocyte % 20.7 % (19-41); Mean Corp Hgb Conc 32.1 g/dL (32-36); Mean Corpuscular Hgb 30.1 pg (27.0-32.0); Mean Corpuscular Volume 93.6 fL (81-99); Monocyte# 0.48 X10^3/uL; Monocyte% 8.3 % (0-10); NRBC Flagged by Analyzer 0 % (0-5); Neutrophil # 4.07 X10^3/uL (2.7-7.7); Platelet Count 263 K/mm3 (150-450); RBC Distribution Width CV 13.2 % (11.6-14.6); RBC Distribution Width SD 45.1 fl (35.1-43.9); Red Blood Count 3.89 M/mm3 (4.2-5.4); White Blood Count 5.8 K/mm3 (4.4-11.0)
[2023-08-02 13:12] LABS: AST(SGOT) 16 U/L (15-37); Alanine Aminotransfer ALT/SGPT 29 U/L (13-56); Albumin, Serum 3.7 g/dL (3.2-5.0); Alkaline Phosphatase 144 U/L (45-117); Anion Gap 10 (5-15); BUN 20 mg/dL (7-18); BUN/Creat Ratio 25.7 RATIO (10-20); Chloride 103 mmol/L (98-107); Creatinine, Serum 0.78 mg/dL (0.55-1.02); EST Glomerular Filtration Rate 80 mL/min (>60); Est Glom Filt Rate - Afr Amer 97 mL/min (>60); Globulin 3.7 g/dL (2.2-4.2); Glucose 118 mg/dL (74-106); Protein, Total 7.4 g/dL (6.4-8.2); Sodium Level 137 mmol/L (136-145); T4 Free Direct 0.97 ng/dL (0.76-1.46); Thyroid Stim Hormone (TSH) 2.05 uIU/mL (0.358-3.74)
== END | disposition home or self-care (01) ==
LOC: BIMLAB 10:50
PROVIDERS: PCP Internal Medicine; Referring Provider Internal Medicine; Visit Provider Internal Medicine
DX: I10 Essential (primary) hypertension (principal)
CPT/HCPCS: 36415; 80053; 84439; 84443; 85025

== ENCOUNTER → 2023-11-04 | Outpatient (CLI) | payer MEDICAID, SELFPAY ==
[2023-11-04 12:21] LABS: Absolute Lymphocyte Count 1.19 X10^3/uL (0.83-4.51); Absolute Neutrophil Count 4.4 X10^3/uL (2.0-7.7); Eosinophil# 0.16 X10^3/uL; Eosinophils% 2.5 % (0-5); Hematocrit 37.4 % (37-47); Lymphocyte # 1.19 X10^3/ul (0.83-4.51); Lymphocyte % 18.8 % (19-41); Mean Corp Hgb Conc 32.1 g/dL (32-36); Mean Corpuscular Hgb 30.5 pg (27.0-32.0); Mean Corpuscular Volume 94.9 fL (81-99); Mean Platelet Vol. 9.8 fl (6.2-12.0); Monocyte# 0.53 X10^3/uL; Monocyte% 8.4 % (0-10); NRBC Flagged by Analyzer 0 % (0-5); Neutrophil # 4.42 X10^3/uL (2.7-7.7); Platelet Count 275 K/mm3 (150-450); RBC Distribution Width CV 12.7 % (11.6-14.6); RBC Distribution Width SD 44.1 fl (35.1-43.9); Red Blood Count 3.94 M/mm3 (4.2-5.4); White Blood Count 6.3 K/mm3 (4.4-11.0)
[2023-11-04 13:13] LABS: ALB/GLOB Ratio 1.1 RATIO (0.9-2.4); AST(SGOT) 14 U/L (15-37); Alanine Aminotransfer ALT/SGPT 20 U/L (13-56); Albumin, Serum 3.8 g/dL (3.2-5.0); Alkaline Phosphatase 150 U/L (45-117); Anion Gap 7 (5-15); BUN 11 mg/dL (7-18); BUN/Creat Ratio 11.9 RATIO (10-20); Chloride 100 mmol/L (98-107); Creatinine, Serum 0.92 mg/dL (0.55-1.02); EST Glomerular Filtration Rate 66 mL/min (>60); Est Glom Filt Rate - Afr Amer 80 mL/min (>60); Globulin 3.6 g/dL (2.2-4.2); Glucose 129 mg/dL (74-106); Potassium 4.6 mmol/L (3.5-5.1); Protein, Total 7.4 g/dL (6.4-8.2); Sodium Level 134 mmol/L (136-145)
[2023-11-04 15:55] LABS: Vitamin D,25 Hydroxy 60.4 ng/mL
== END | disposition home or self-care (01) ==
LOC: BIMLAB 11:10
PROVIDERS: PCP Internal Medicine; Referring Provider Internal Medicine; Visit Provider Internal Medicine
DX: M85.80 Other specified disorders of bone density and structure, unspecified site (principal); I10 Essential (primary) hypertension
CPT/HCPCS: 36415; 80053; 82306; 85025

== ENCOUNTER → 2023-11-18 | Outpatient (CLI) | payer MEDICAID, SELFPAY ==
--- NOTE | 2023-11-18 13:59 | ECHOD_ITS ---
Reason For Study: MURMUR Procedure This was a 2D Doppler, Color Flow transthoracic echocardiogram. Exam performed in department. Left Ventricle Normal LV size. Left ventricular systolic function is normal. The left ventricular ejection fraction is 65 %. No regional wall motion abnormalities noted. Right Ventricle Normal RV size. Normal systolic function. Atria Normal left atrium. Normal right atrium. Mitral Valve Normal mitral valve. Tricuspid Valve Normal tricuspid valve. Mild (1+) tricuspid valve insufficiency. Pulmonary artery systolic pressure is 27 mmHg. Aortic Valve Trisinus/trileaflet aortic valve. Mild focal aortic valve thickening. Pulmonic Valve Normal pulmonic valve. Great Vessels Normal aortic root. The pulmonary artery is normal size. Normal inferior vena cava. Pericardium/Pleural No pericardial effusion. MMode/2D Measurements & Calculations LVIDd: 4.2 cm IVSd: 1.3 cm LVOT diam: 1.9 cm LVIDs: 2.0 cm LVPWd: 1.0 cm LVOT area: 2.8 cm2 RVDd: 3.5 cm FS: 51.8 % asc Aorta Diam: 2.8 cm LAV(MOD-bp): 52.4 ml LVAd ap4: 22.1 cm2 LAV(MOD-bp) Indexed: 29.0 ml/m2 LVLd ap4: 7.5 cm LAV(MOD-sp2): 49.2 ml EDV(MOD-sp4): 54.1 ml LAV(MOD-sp4): 51.7 ml EDV(sp4-el): 55.0 ml LVAs ap4: 10.9 cm2 LVLs ap4: 5.9 cm ESV(MOD-sp4): 16.9 ml ESV(sp4-el): 17.0 ml EF(MOD-sp4): 68.7 % EF(sp4-el): 69.1 % LVAd ap2: 21.0 cm2 SV(MOD-sp4): 37.2 ml SV(MOD-sp2): 32.4 ml LVLd ap2: 7.5 cm EDV(MOD-sp2): 49.6 ml EDV(sp2-el): 50.2 ml LVAs ap2: 11.2 cm2 LVLs ap2: 6.3 cm ESV(MOD-sp2): 17.2 ml ESV(sp2-el): 16.9 ml EF(MOD-sp2): 65.3 % SV(sp4-el): 38.1 ml Ao sinus diam: 2.[address] Junction: 2.2 cm LA dimension(2D): 3.9 cm LA A4 area: 19.6 cm2 RA A4 area: 12.3 cm2 TAPSE: 2.0 cm Time Measurements MV dec time: 0.24 sec Doppler Measurements & Calculations MV E max miguel: 95.0 cm/sec Lat Peak E' Miguel: 11.2 cm/sec Med Peak E' Miguel: 9.8 cm/sec MV A max miguel: 84.0 cm/sec E/E' lat: 8.5 E/E' med: 9.7 MV E/A: 1.1 MV dec slope: 394.8 cm/sec2 Ao V2 max: 217.6 cm/sec LV V1 max: 166.6 cm/sec Ao max P.0 mmHg LV V1 max P.1 mmHg Ao V2 mean: 153.2 cm/sec LV V1 mean P.2 mmHg Ao mean P.5 mmHg LV V1 mean: 115.8 cm/sec Ao V2 VTI: 43.5 cm LV V1 VTI: 35.0 cm AV (velocity ratio): 0.80 TAMIE(I,D): 2.3 cm2 TAMIE(V,D): 2.2 cm2 SV(LVOT): 99.7 ml PA V2 max: 115.2 cm/sec TR max miguel: 246.2 cm/sec PA max PG (full): 2.1 mmHg TR max P.3 mmHg ECHO/Echo Complete Interpretation Summary Left ventricular systolic function is normal. Normal LV size. The left ventricular ejection fraction is 65 %. Mild focal aortic valve thickening. Pulmonary artery systolic pressure is 27 mmHg. Ordering Physician: Margarita Garcia Referring Physician: Margarita Garcia Performed By: Ivon Gong RDCS
== END | disposition home or self-care (01) ==
LOC: CVS 13:56
PROVIDERS: PCP Internal Medicine; Referring Provider Internal Medicine; Visit Provider Internal Medicine
DX: R01.1 Cardiac murmur, unspecified (principal)
CPT/HCPCS: 93306

== ENCOUNTER → 2024-02-07 | Outpatient (CLI) | payer MEDICAID, SELFPAY ==
--- NOTE | 2024-02-07 16:06 | RAD_ITS ---
STUDY: X-RAY - LUMBAR SPINE REASON FOR EXAM: Female, 63 years old. Chronic Back Pain TECHNIQUE: 4 view(s) of the lumbar spine were obtained. COMPARISON: None FINDINGS: Normal lumbar lordosis. There is no substantial scoliosis. There is a normal alignment of the vertebrae. The visualized unremarkable aside from irregularity anterior superior endplate of L5. I suspect this likely represents either a limbus vertebra or sequela from previous trauma but an acute traumatic injury cannot be completely excluded. Please correlate with history. Age consistent disc space narrowing throughout the lumbar spine. The soft tissue structures are unremarkable. 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 However an acute injury cannot be completely excluded. Please correlate with clinical history No suspicious paraspinal mass or prevertebral soft tissue abnormality, there is retained stool throughout the colon Electronically Signed: Carlos Hickey MD at 8:49 EST ,
== END | disposition home or self-care (01) ==
LOC: RAD 16:04
PROVIDERS: PCP Internal Medicine; Referring Provider Internal Medicine; Visit Provider Internal Medicine
DX: M54.50 Low back pain, unspecified (principal); G89.29 Other chronic pain
CPT/HCPCS: 72110

== ENCOUNTER → 2024-02-10 | Outpatient (CLI) | payer MEDICAID, SELFPAY ==
--- NOTE | 2024-02-10 16:38 | RAD_ITS ---
STUDY: X-RAY CHEST REASON FOR EXAM: Female, 63 years old. Cough TECHNIQUE: Single PA view of the chest. COMPARISON: 09/13/2022 FINDINGS: The lungs are clear and expanded. There is no demonstrated pleural abnormality. Normal size heart. Small hiatal hernia. Normal visualized pulmonary arteries. Normal visualized aortic arch and descending thoracic aorta. Normal visualized thoracic spine. Normal visualized ribs, clavicles, and shoulders. There is no demonstrated abnormality of the visualized soft tissue structures of the upper abdomen. RAD/Chest 1 View IMPRESSION: No active disease. Small hiatal hernia. Electronically Signed: Eh Wayne MD at 13:31 EST ,
== END | disposition home or self-care (01) ==
LOC: RAD 16:16
PROVIDERS: PCP Internal Medicine; Referring Provider Internal Medicine; Visit Provider Internal Medicine
DX: R05.9 Cough, unspecified (principal)
CPT/HCPCS: 71045

== ENCOUNTER 2024-02-11 15:30 | Outpatient (RCR) | payer MEDICAID, SELFPAY ==
--- NOTE | 2023-12-16 13:45 | HP.PTEVAL ---
Patient's Visit Information Visit Information Visit Information: CONNIE GREENBERG is a 63 year old F referred to Physical Therapy by URIEL Oswald with a diagnosis of sciatica, dorsalgia. Date of Evaluation: 12/16/23 Physical Therapist: Hayden Burns, DPT, OCS, CSCS Visit Plan Frequency: 2x /Week Duration: 4-6 Weeks Plan: 2x/week for 4-6 weeks around a vacation she has planned in about 3 weeks. start pool and progress to gym as she is a [employer] member. HS and quad stretches LB ROM core and leg and postural strength in poolk and to HEP. work toward full general exercise for patient. May bring tens unit for instruction. Recheck with EG after her trip at end of month and then consider getting out to gym or further pool. Subjective Subjective: LBP and leg pain for years and has spurts where it worsens and hurts all the time. Down both legs to the knees in the back. Worse in the morning upon rising. uses heat which helps. Worse in am and worse if sits too much or walks too much. Sleep is not great, needs heating pad. Up every 4 hours for tylenol. Doctoring for 2 months for this, putting up with it prior. Yrs ago saw pain doctor Nevaeh Caldera and injections did not help anymore. No regular exercises. Not employed. Basic ADLs : dressing and bathroom, shower I. Dtr cleans house, but pt swiffers and does dishes. Steps one at a time with R and railing. Pain LBP: Pain Intensity (Out of 10): 5 Pain Intensity Range: 8 Comment: am worse, improved later in day. worse if sit too much. Objective Objective: Walks into PT slow but I, short steps. Trasnfers chair and bed I. march and butt kicks bother upper legs(tight), Able to heel raise and toe raise. Lumbar AROM ext painful central and min limited, flexion tight in posterior legs and min limited, SB pain centrally min limited. stiff LB. Flexibility HS at -30 90/90 with pain when stretching in LE.quads min tight B. reflexes 2/3 patella dn achilles sensation LE WNL to gross lgiht touch B. Strength is 3+ hip abd and ext B, 4- hip flexion with core weakness and instability. knee flexiona dn ext 4-, ankles 4/5. shoulder flexion 4- withouyt pain. - SLR, - Slump test. Balance/Special Test Scores Oswestry Low Back Score: 25 Goals Goal 1:: Sleep 6 hrs without waking due to pain. Goal Time Frame: 4-6 Weeks Goal 2:: I appropriate HEP to minimize future problems Goal Time Frame: 4-6 Weeks Goal 3:: Pain 50% better at 4/10 at worst. Goal Time Frame: 4-6 Weeks Goal 4:: oswestry score 8 or better Goal Time Frame: 4-6 Weeks Rehabilitation Potential Physical Therapy Diagnosis: degenerative changes with pain in LB causing uncomfortable function. Rehabilitation Potential: Fair Anticipated Interventions Patient/Client Instruction: Educate patient on: Condition and Plan of Care For the Purpose of:: To increase ROM, To improve nutrient delivery to tissue and To improve muscle performance and motor function Therapeutic Exercise to Include: Strength training, Postural training, Flexibilty training, Passive ROM, Active ROM and Dynamic Lumbar Stabilization For the Purpose of:: To decrease pain, To increase ROM, To improve nutrient delivery to tissue, To improve muscle performance and motor function and To increase tolerance to activity/condition/position Manual Therapy Techniques to Include: Mobilization, Passive ROM and Soft tissue mobilization For the Purpose of:: To decrease pain, To increase ROM and To improve nutrient delivery to tissue TENS: Yes Comment: pt has unit at home For the Purpose of:: To decrease pain Text: Thank you for the opportunity to evaluate your patient. For Medicare and Medicare HMO plans, please review the plan of care and approve it. It will need to be FAXED BACK to us at [phone] for Medicare purposes. For Medicare only, by signing this I certify the plan of care. Please let me know if there are questions or concerns regarding this plan of care. Physician Signature: Date:
--- NOTE | 2024-01-23 11:26 | HP.PTREVAL_ITS ---
Re-Evaluation Intro: Vidhi Araujo, SYSTEMS MECHANIC-C, It has been my pleasure to treat CONNIE GREENBERG over the last 8 visits for sciatica, dorsalgia. Please see the progress note below for an update on the physical therapy plan of care! Subjective Subjective: Went on vacation to [place]. It went well but got sick in the sinus. Back is hurting but the pool helped. Diminished by 50% to 5/10. Back up to 8 now since has not been in there in a while. Doiong HEP of stretches Objective Objective/Function: Good lb ROM but everything mmakes me painful walking well today without antalgia and 3/10 pain in LB. Should be good with pool ex with compliance and appropriate to continue to teach gym based core and general strength New POC and new goal and old stilla pprorpiate, fair prognosis with compliance. Plan Plan Plan: 2x/week for 3-4 weeks ...please teach gym based core adn LE and postural strength adn work to I at [employer], verbally see if she is continuing in the pool Balance/Gait/Functional tests Balance/Special Test Scores Oswestry Low Back Score: 24 Goals Goals Goal 1:: Sleep 6 hrs without waking due to pain. Goal Time Frame: 4-6 Weeks Goal Progress: Not Progressing Goal 2:: I appropriate HEP to minimize future problems Goal Time Frame: 4-6 Weeks Goal Progress: Progressing Goal 3:: Pain 50% better at 4/10 at worst. Goal Time Frame: 4-6 Weeks Goal Progress: Progressing Goal 4:: oswestry score 8 or better Goal Time Frame: 4-6 Weeks Goal 5:: I with gym based core strength for back. Goal Time Frame: 2-4 Weeks Goal Progress: NEW GOAL Anticipated Interventions Anticipated Interventions Patient/Client Instruction: Educate patient on: Condition and Plan of Care For the Purpose of:: To increase ROM, To improve nutrient delivery to tissue and To improve muscle performance and motor function Therapeutic Exercise to Include: Strength training, Postural training, Flexibilty training, Passive ROM, Active ROM and Dynamic Lumbar Stabilization For the Purpose of:: To decrease pain, To increase ROM, To improve nutrient delivery to tissue, To improve muscle performance and motor function and To increase tolerance to activity/condition/position Manual Therapy Techniques to Include: Mobilization, Passive ROM and Soft tissue mobilization For the Purpose of:: To decrease pain, To increase ROM and To improve nutrient delivery to tissue TENS: Yes Comment: pt has unit at home For the Purpose of:: To decrease pain Re-Evaluation Ending Re-evaluation ending: Please do not hesitate to contact me at [phone] by phone or if you have questions or concerns regarding this new plan of care! Sincerely, Hayden Burns, DPT, OCS, CSCS
--- NOTE | 2024-03-30 14:19 | HP.PTDCNRP_ITS ---
Patient Information Patient Information: CONNIE GREENBERG was seen in my office for initial evaluation on 12/16/23. The following Plan of Care was established for this patient: POC Established Initial Frequency: 2x /Week Initial Duration: 4-6 Weeks Anticipated Interventions Patient/Client Instruction: Educate patient on: Condition and Plan of Care For the Purpose of:: To increase ROM, To improve nutrient delivery to tissue and To improve muscle performance and motor function Therapeutic Exercise to Include: Strength training, Postural training, F lexibilty training, Passive ROM, Active ROM and Dynamic Lumbar Stabilization For the Purpose of:: To decrease pain, To increase ROM, To improve nutrient delivery to tissue, To improve muscle performance and motor function and To increase tolerance to activity/condition/position Manual Therapy Techniques to Include: Mobilization, Passive ROM and Soft tissue mobilization For the Purpose of:: To decrease pain, To increase ROM and To improve nutrient delivery to tissue TENS: Yes Comment: pt has unit at home For the Purpose of:: To decrease pain Last Seen Last Seen: This patient was last seen in our office 02/11/24. Pertinent comments regarding their Physical therapy will appear below: Pt seen for 14 visits of POC but did not return for final recheck. she was 40% better. I will discontinue her from my care at this time as it has been over 6 weeks. At this point I will be discontinuing this patient from physical therapy. I would be happy to see this patient again in the future if found appropriate by the physician. Thank you! Hayden Burns, DPT, OCS, CSCS Balance/Gait/Functional tests Balance/Special Test Scores Oswestry Low Back Score: 24
== END 2024-02-11 19:00 | disposition home or self-care (01) ==
LOC: PT 15:30
PROVIDERS: PCP Internal Medicine; Visit Provider Nurse Practitioner
DX: M54.30 Sciatica, unspecified side (principal); G89.29 Other chronic pain
CPT/HCPCS: 97110; 97113; 97161

== ENCOUNTER → 2024-04-10 | Outpatient (CLI) | payer MEDICAID, SELFPAY ==
[2024-04-10 12:40] LABS: ALB/GLOB Ratio 1.7 RATIO (0.9-2.4); AST(SGOT) 32 U/L (<=31); Alanine Aminotransfer ALT/SGPT 27 U/L (<=34); Albumin, Serum 4.2 g/dL (3.4-4.8); Alkaline Phosphatase 97 U/L (35-104); Anion Gap 10 (5-15); BUN 8 mg/dL (4-19); BUN/Creat Ratio 12.3 RATIO (10-20); Calcium 9.3 mg/dL (7.6-11.0); Carbon Dioxide 26.9 mmol/L (22.0-29.0); Chloride 98 mmol/L (96-108); Cholesterol 138 mg/dL (<=200); Creatinine, Serum 0.65 mg/dL (0.70-1.20); EST Glomerular Filtration Rate 100 (>60); Globulin 2.5 g/dL (2.2-4.2); Glucose 98 mg/dL (70-99); High Density Lipoprotein 63 mg/dL; Low Density Lipoprotein Calc. 60 mg/dL; Potassium 4.5 mmol/L (3.3-5.1); Protein, Total 6.7 g/dL (5.9-8.4); Sodium Level 135 mmol/L (133-145); Total Bilirubin 0.31 mg/dL (0.00-1.30); Triglycerides 77 mg/dL; Very Low Density Lipoprotein 15 mg/dL (5-40); cholesterol:hdl ratio screen 2.19
[2024-04-10 13:51] LABS: Absolute Lymphocyte Count 1.55 X10^3/uL (0.83-4.51); Absolute Neutrophil Count 2.2 X10^3/uL (2.0-7.7); Basophil# 0.01 X10^3/uL; Basophil% 0.2 % (0-1); Eosinophil# 0.26 X10^3/uL; Eosinophils% 5.9 % (0-5); Hemoglobin 11.8 g/dL (12.0-15.0); Lymphocyte # 1.55 X10^3/ul (0.83-4.51); Mean Corp Hgb Conc 33.7 g/dL (32-36); Mean Corpuscular Hgb 32.2 pg (27.0-32.0); Mean Corpuscular Volume 95.6 fL (81-99); Mean Platelet Vol. 9.7 fl (6.2-12.0); Monocyte# 0.38 X10^3/uL; Monocyte% 8.6 % (0-10); NRBC Flagged by Analyzer 0 % (0-5); Neutrophil # 2.22 X10^3/uL (2.7-7.7); Neutrophil % 50.1 % (47-70); Platelet Count 266 K/mm3 (150-450); RBC Distribution Width CV 12.4 % (11.6-14.6); RBC Distribution Width SD 43.8 fl (35.1-43.9); Red Blood Count 3.66 M/mm3 (4.2-5.4); White Blood Count 4.4 K/mm3 (4.4-11.0)
== END | disposition home or self-care (01) ==
LOC: BIMLAB 10:58
PROVIDERS: PCP Internal Medicine; Referring Provider Internal Medicine; Visit Provider Internal Medicine
DX: I10 Essential (primary) hypertension (principal); F10.21 Alcohol dependence, in remission
CPT/HCPCS: 36415; 80053; 80061; 85025

== ENCOUNTER 2024-06-04 13:41 | Emergency (ER) | payer MEDICAID, SELFPAY ==
[2024-06-04] VITALS (7 sets, daily range): BP systolic 121–151; BP diastolic 76–88; PULSE 67–94; RESP 13–20; TEMP 36.3–36.5; O2SAT 95–99; BMI 28.5
--- NOTE | 2024-06-04 13:53 | RAD_ITS ---
PROCEDURE: CHEST PA AND LATERAL 06/04/2024 REASON FOR EXAM: CHEST PAIN TECHNIQUE: Frontal and lateral views of the chest. COMPARISON: None FINDINGS: Hardware: EKG electrodes are seen. Heart: The heart size is normal. Mediastinum: The mediastinal contour is unremarkable. Lungs: The lungs are clear. Bones: The bones are unremarkable. RAD/Chest PA and Lateral IMPRESSION: NO ACUTE FINDINGS. Reading Location: [facility]
[2024-06-04 14:20] LABS: Absolute Lymphocyte Count 1.49 X10^3/uL (0.83-4.51); Absolute Neutrophil Count 3.9 X10^3/uL (2.0-7.7); Eosinophils% 3.3 % (0-5); Hematocrit 34.9 % (37-47); Hemoglobin 11.7 g/dL (12.0-15.0); Lymphocyte # 1.49 X10^3/ul (0.83-4.51); Lymphocyte % 24.3 % (19-41); Mean Corp Hgb Conc 33.5 g/dL (32-36); Mean Corpuscular Hgb 31.7 pg (27.0-32.0); Mean Corpuscular Volume 94.6 fL (81-99); Mean Platelet Vol. 9.5 fl (6.2-12.0); Monocyte# 0.51 X10^3/uL; Monocyte% 8.3 % (0-10); NRBC Flagged by Analyzer 0 % (0-5); Neutrophil # 3.92 X10^3/uL (2.7-7.7); Neutrophil % 63.8 % (47-70); Platelet Count 304 K/mm3 (150-450); RBC Distribution Width CV 12.7 % (11.6-14.6); RBC Distribution Width SD 43.7 fl (35.1-43.9); Red Blood Count 3.69 M/mm3 (4.2-5.4); White Blood Count 6.1 K/mm3 (4.4-11.0)
[2024-06-04 14:39] LABS: Anion Gap 12 (5-15); BUN 7 mg/dL (4-19); BUN/Creat Ratio 10.2 RATIO (10-20); Calcium,Total 9.5 mg/dL (7.6-11.0); Carbon Dioxide 22.9 mmol/L (21.0-32.0); Chloride 101 mmol/L (98-108); EST Glomerular Filtration Rate 99 (>60); Estimated Creatinine Clearance 77.87 ml/min (50-250); Glucose 147 mg/dL (70-99); Potassium 3.9 mmol/L (3.3-5.1); Sodium Level 136 mmol/L (133-145); Troponin T High Sensitivity < 6 ng/L (<=14)
[2024-06-04] MEDS: Metoclopramide 10 MG/2 ML Vial 5 MG IV (14:42)
[2024-06-04] MEDS: Ketorolac 15 MG/ML Vial IV (14:43)
[2024-06-04 14:59] LABS: D-Dimer Quantitative (DVT/PE) 0.58 FEU/ug/m (0.27-0.49)
[2024-06-04 15:48] LABS: AST(SGOT) 18 U/L (<=31); Alanine Aminotransfer ALT/SGPT 16 U/L (<=34); Albumin, Serum 4.1 g/dL (3.4-4.8); Alkaline Phosphatase 103 U/L (35-104); Bilirubin, Direct 0.21 mg/dL (0.00-0.30); Globulin 2.7 g/dL (2.2-4.2); Lipase 32 U/L (13-75); Protein, Total 6.8 g/dL (5.9-8.4); Total Bilirubin 0.47 mg/dL (0.00-1.30)
--- NOTE | 2024-06-04 16:28 | ED.VIS.CHEST ---
HPI History of Present Illness Chief Complaint: Chest Pain Informant: patient Narrative Narrative: Patient is a 63-year-old female with history of headaches, bipolar disorder, COPD, GERD, anxiety and depression and recent bronchitis (3 weeks ago (presenting with chest pain. Patient states she started having chest pain 2 days ago. She has intermittent more in the front of her chest. She thought maybe was related to her bronchitis as her breathing felt tight. She notes she still had a lingering cough and she has had some mucus production has been clear. She did she was treated with a 5-day course of Augmentin and prednisone. She went to her doctor's office yesterday and they prescribed her a new inhaler. Last night and then today she started have increased pain worth with deep breathing. She describes the pain as sharp and it bent her over. She feels short of breath. She is not sure if she was wheezing. She 90 leg swelling. Is on any blood thinners but does take an 81 mg aspirin daily. Denies any DVT or PE history. States that she regularly takes Tums but this does not help her pain. Today the pain started into her left shoulder and back which is what prompted her to come to the emergency room. No rash reported. No associated numbness or tingling. Notes that when she has the pain she feels clammy, nauseous and lightheaded. No other complaints or concerns reported at this time. [facility] Medical History De Quervain's tenosynovitis, left Chronic constipation Cough Hot flashes, menopausal CHIQUI (obstructive sleep apnea) Migraine Obesity (BMI 30.0-34.9) Murmur Osteopenia Fatigue Health care maintenance Right otitis media with effusion Alcohol use disorder, severe, in early remission Chronic headache Low libido Dermatitis, contact Sinusitis Bipolar II disorder Overweight (BMI 25.0-29.9) Screening for STD (sexually transmitted disease) Insomnia Flu vaccine need Bee sting reaction Difficulty swallowing solids Hyponatremia Dizziness Vaginal atrophy OAB (overactive bladder) Memory impairment Sciatica Hernia History of stroke IBS (irritable bowel syndrome) Hx of migraine headaches GI problem Emphysema lung COPD (chronic obstructive pulmonary disease) Back pain Anemia Arthritis Seasonal allergies Anxiety right scapular mass Lumbar radiculopathy Asthma Bipolar depression GERD (gastroesophageal reflux disease) Orthostatic hypotension Pericardial effusion (noninflammatory) Hypertension Hyperlipidemia Chronic pain Fibromyalgia CVA (cerebral vascular accident) Home Medications ?Medication ?Instructions ?Recorded ?Last Taken ?Type albuterol sulfate 90 mcg/actuation 2 puff inhalation Q4H PRN PRN Sob 12/26/16 Unknown History aerosol inhaler &/Or Wheezing cholecalciferol (vitamin D3) 125 5,000 unit PO DAILY vitamin 12/26/16 Unknown History mcg (5,000 unit) disintegrating tablet cyanocobalamin (vitamin B-12) 500 500 mcg PO DAILY vitamin 12/26/16 Unknown History mcg tablet aspirin 81 mg chewable tablet 81 mg PO DAILY@0800 blood thinner 12/27/16 Unknown Rx thbivrqw-zazp-rdnag acid 240 1 tab PO DAILY vitamin 03/07/20 Unknown History mcg-vit K 120 cqw-zmjnmu-uvwa 293 tablet (Alive Women's 50 Plus (fruit-veg blend)) pyridoxine (vitamin B6) 100 mg 100 mg PO DAILY vitamin 04/01/20 Unknown History tablet magnesium 200 mg tablet 400 mg PO QHS vitamin 09/13/22 Unknown History famotidine 20 mg tablet mg PO DAILY 03/19/23 Unknown History cetirizine 10 mg capsule (Zyrtec) 10 mg PO DAILY PRN 08/02/23 Unknown History d-mannose 500 mg capsule (AZO mg PO 08/02/23 Unknown History D-Mannose) selenium 200 mcg capsule 200 mcg PO DAILY 08/02/23 Unknown History lisinopril 20 mg tablet 20 mg PO DAILY bp #90 tabs 11/04/23 Unknown Rx riboflavin (vitamin B2) 100 mg 100 mg PO QDAY 11/04/23 Unknown History tablet simvastatin 20 mg tablet 20 mg PO QHS hld #90 tabs 11/04/23 Unknown Rx fluticasone propionate 50 1 spray intranasal QDAY #16 grams 12/09/23 Unknown Rx mcg/actuation nasal spray,suspension (Allergy Relief (fluticasone)) estradiol 0.01% (0.1 mg/gram) 1 g vaginal 2XW hormone #42.5 grams 12/17/23 Unknown Rx vaginal cream (Estrace) montelukast 10 mg tablet 10 mg PO DAILY asthma #90 tabs 02/20/24 Unknown Rx buspirone 15 mg tablet 15 mg PO TID 30 days #90 tabs 02/27/24 Unknown Rx naltrexone 50 mg tablet 50 mg PO DAILY #30 tabs 04/06/24 Unknown Rx escitalopram oxalate 10 mg tablet 10 mg PO DAILY depression #30 tabs 04/09/24 Unknown Rx lamotrigine 200 mg tablet 200 mg PO QHS seizure 30 days #30 04/09/24 Unknown Rx tabs arm brace (Wrist Brace) #1 ea 04/10/24 Unknown Rx cyclobenzaprine 10 mg tablet 5 mg (1/2 x 10 mg) PO HS PRN 04/10/24 Unknown Rx muscle spasm #30 tabs ferrous sulfate 325 mg (65 mg 325 mg PO .1x/wk 04/10/24 Unknown History iron) tablet (Feosol) meloxicam 15 mg tablet 15 mg PO QDAY PRN pain #60 tabs 04/10/24 Unknown Rx prazosin 2 mg capsule 2 mg PO QHS nightmares #30 caps 05/07/24 Unknown Rx doxepin 10 mg capsule 10 mg PO QHS 30 days #30 caps 06/02/24 Unknown Rx omeprazole 40 mg capsule,delayed 40 mg PO BID stomach #180 caps 06/02/24 Unknown Rx release albuterol 90 mcg-budesonide 80 2 inh inhalation ONCE #10.7 grams 06/03/24 Unknown Rx mcg/actuation HFA aerosol inhaler (Airsupra) benzonatate 200 mg capsule 200 mg PO TID cough #30 caps 06/03/24 Unknown Rx fluticasone furoate 100 inhalation QDAY 06/03/24 Unknown History mcg-vilanterol 25 mcg/dose inhalation powder (Breo Ellipta) Allergy/AdvReac Type Severity Reaction Status Date / Time bee venom protein (honey bee) Allergy Mild SWELLING/ Verified 06/04/24 13:43 SOB Family History Unknown Past medical history not known due to adoption Surgical History H/O laparoscopy Hx of breast biopsy History of total hysterectomy Social History household members: spouse Smoking Status: Never smoker alcohol intake: current alcohol intake frequency: 3 or more drinks per day Alcohol type: beer and hard liquor substance use type: does not use caffeine: Yes what type of physical activity do you participate in: walking frequency: 1-2 times per week seatbelt use: always do you feel safe at home: Yes additional social history: -Aashish ANAHY ROS ED Constitutional Constitutional ED: Reports sweats; Denies chills or fever(s) ENT ENT ED: Denies rhinorrhea or sore throat Cardiovascular Cardiovascular: Reports chest pain; Denies palpitations or racing heartbeat Respiratory/Chest Respiratory/Chest: Reports cough, dyspnea and sputum Gastrointestinal Gastrointestinal: Reports abdominal pain, nausea and other Details: Reports chronic abdominal pain-no acute change ; Denies diarrhea or vomiting Musculoskeletal Musculoskeletal: Reports back pain; Denies arthralgias or myalgias Integumentary Denies rash Neurologic Neurologic: Reports headache(s); Denies paresthesias or weakness Hematologic/Lymphatic Hematologic/Lymphatic: Denies easy bleeding or easy bruising EXAM Physical Exam Const Vital Signs: 06/04/24 13:41 06/04/24 14:07 06/04/24 14:09 Temperature 97.7 F L Temperature Source Oral Pulse Rate 94 80 Respiratory Rate 20 H 16 Blood Pressure 147/76 H 121/88 H Blood Pressure Mean 99 99 Pulse Ox 97 99 99 Oxygen Delivery Method Room Air Room Air Room Air 06/04/24 15:46 06/04/24 15:47 06/04/24 16:00 Temperature Temperature Source Pulse Rate 67 67 71 Respiratory Rate 17 17 13 Blood Pressure 151/87 H Blood Pressure Mean 108 Pulse Ox 95 96 98 Oxygen Delivery Method Room Air 06/04/24 16:40 Temperature 97.4 F L Temperature Source Pulse Rate 86 Respiratory Rate 13 Blood Pressure 136/76 H Blood Pressure Mean 96 Pulse Ox 96 Oxygen Delivery Method Positive well nourished and well developed General Appearance ED: well developed and NAD HEENT Reports TM's clear and moist mucous membranes normocephalic and atraumatic Tympanic Membrane ED: Yes TM's clear Eyes PERRL Neck supple and no JVD Chest Wall inspection of chest normal Chest Narrative: No chest wall crepitus. Tenderness palpation over the anterior chest wall which she states is worse than her pain. Resp normal respiratory effort and clear to auscultation bilaterally Effort and Inspection: pain with movement Auscultation: Negative for rhonchi or wheezes Cardio regular rate, regular rhythm and no murmurs GI normal to inspection, nondistended, normoactive bowel sounds and soft to palpation Back/Spine Back/Spine Narrative: Upper thoracic paraspinal tender Cervical Spine: Negative for cervical spine tenderness Extremity normal to inspection General Extremety ED: Negative for edema or pulses abnormal General Extremity: Negative for edema or pulses abnormal Neuro oriented x3 Sensorium / Orientation: awake and alert Motor Exam: Negative for general weakness Psych mental status grossly normal Skin no rashes or lesions noted and no wounds Heart Score History: Slightly/Non-Suspicious ECG: Normal Age: >45 - <65 years Risk Factors: 1 or 2 Risk Factors Troponin: </= Normal Limit Score: 2 MDM MDM MDM Narrative Medical decision making narrative: Patient is evaluated for intermittent chest pain has been going on since Saturday. Today started radiating to her back and her left shoulder which is what brought her her to the emergency room. She denies any known history of cardiac disease. She did have recent bronchitis. Differential includes ACS, pleural effusion, pleurisy, chest wall pain, pulmonary emboli and pneumonia. Patient denies any ripping or tearing sensation and has had intermittent pain for 3 days so low suspicion for acute aortic dissection. D-dimer is normal for age-adjusted and her blood pressure is only mildly elevated in the emergency room. She is equal pulses in all 4 extremities. Do not think she requires a CTA of the chest. D-dimer is normal for age-adjusted so I do not think she needs PE study. CBC shows normal white blood cell count and a mild but chronic and stable appearing anemia. BMP largely normal as well as liver enzymes and lipase. Initial high-sensitivity troponin is normal. Given the intermittent nature of the pain will obtain a repeat EKG shows normal sinus rhythm and no acute change compared to prior EKG. Anticipate patient be discharged home if workup is negative. Patient was given a dose of Toradol as well as Reglan to help with her pain as well as her headache (reports chronic migraines) while in the emergency room. Repeat troponin negative. Patient tells nursing staff she is feeling better. Will be discharged home with outpatient PCP follow-up. Lab Data Attestation: I reviewed the patient's lab results. Labs: Laboratory Results - last 24 hr 06/04/24 14:00 WBC 6.1 RBC 3.69 L Hgb 11.7 L Hct 34.9 L MCV 94.6 MCH 31.7 MCHC 33.5 RDW Std Deviation 43.7 RDW Coeff of Mallory 12.7 Plt Count 304 MPV 9.5 Immature Gran % (Auto) 0.300 Neut % (Auto) 63.8 Lymph % (Auto) 24.3 [place] % (Auto) 8.3 Eos % (Auto) 3.3 Baso % (Auto) 0.0 Absolute Neuts (auto) 3.9 Absolute Lymphs (auto) 1.49 Nucleated RBC % 0 D-Dimer Quant (PE/DVT) 0.58 H* Sodium 136 Potassium 3.9 Chloride 101 Carbon Dioxide 22.9 Anion Gap 12 BUN 7 Creatinine 0.70 Estim Creat Clear Calc 77.87 Est GFR (MDRD) Non-Af 99 BUN/Creatinine Ratio 10.2 Glucose 147 H Calcium 9.5 Total Bilirubin 0.47 Direct Bilirubin 0.21 AST 18 ALT 16 Alkaline Phosphatase 103 Troponin T High Sens < 6 Troponin T Hi Sens 2 Hr < 6 Total Protein 6.8 Albumin 4.1 Globulin 2.7 Lipase 32 Radiography Chest X-Ray - ED: 2 View, Read by ED Physician and Read by Radiologist Diagnostic Testing: Clinical Impression(s) from Imaging Studies Chest X-Ray 06/04/24 13:53 IMPRESSION: NO ACUTE FINDINGS. Reading Location: [place] [address] Rhythm Strip Rhythm Strip: Sinus Rhythm Rate: 81 Ectopy: None EKG Initial EKG: Attestation: I personally reviewed and interpreted this EKG as follows: Interpretation: Sinus Rhythm Comments: Normal sinus rhythm at a rate of 81 bpm Normal axis Normal intervals Normal ST segments Low voltage QRS per machine interpretation Compared to prior EKG on 10/10/2022, no significant changes Discharge Plan Triage Chief Complaint: Chest Pain ED Provider: Adore Gonzalez Dx/Rx/DC Orders Clinical Impression: Acute chest wall pain Instructions: ED Chest Wall Pain, Costochondritis Prescriptions: No Action Alive Women's 50 Plus (blend) 240-120-300 mcg tablet 1 tab PO DAILY pyridoxine (vitamin B6) 100 mg tablet 100 mg PO DAILY famotidine 20 mg tablet PO DAILY fluticasone furoate-vilanterol [Breo Ellipta] 100-25 mcg/dose blister with device inhalation QDAY Patient Comments: INHALE 1 PUFF ONCE DAILY FOR ASTHMA Zyrtec 10 mg capsule 10 mg PO DAILY PRN selenium 200 mcg capsule 200 mcg PO DAILY AZO D-Mannose 500 mg capsule PO ferrous sulfate [Feosol] 325 mg (65 mg iron) tablet 325 mg PO .1x/wk riboflavin (vitamin B2) 100 mg tablet 100 mg PO QDAY simvastatin 20 mg tablet 20 mg PO QHS Qty: 90 1RF lisinopril 20 mg tablet 20 mg PO DAILY Qty: 90 1RF fluticasone propionate [Allergy Relief (fluticasone)] 50 mcg/actuation spray,suspension 1 spray intranasal QDAY Qty: 16 1RF Rx Instructions: administer into each nostril meloxicam 15 mg tablet 15 mg PO QDAY PRN (Reason: pain) Qty: 60 0RF cyclobenzaprine 10 mg tablet 5 mg PO HS PRN (Reason: muscle spasm) Qty: 30 0RF (DME) Wrist Brace Misc See Rx Instructions .Route Qty: 1 0RF Rx Instructions: As directed escitalopram oxalate 10 mg tablet 10 mg PO DAILY Qty: 30 3RF lamotrigine 200 mg tablet 200 mg PO QHS 30 Days Qty: 30 3RF Airsupra 90-80 mcg/actuation HFA aerosol inhaler 2 inh inhalation ONCE Qty: 10.7 0RF Rx Instructions: as a single dose; may repeat up to 6 doses per day (12 inhalations) benzonatate 200 mg capsule 200 mg PO TID Qty: 30 0RF cyanocobalamin (vitamin B-12) 500 MCG tablet 500 mcg PO DAILY albuterol sulfate 1 INHALER inhaler 2 puff INHALATION Q4H PRN PRN (Reason: Sob &/Or Wheezing) cholecalciferol (vitamin D3) 5,000 UNIT tablet,disintegrating 5,000 unit PO DAILY aspirin 81 MG tablet,chewable 81 mg PO DAILY@0800 0RF magnesium 200 mg tablet 400 mg PO QHS estradiol [Estrace] 0.01 % (0.1 mg/gram) cream 1 g vaginal 2XW Qty: 42.5 1RF montelukast 10 mg tablet 10 mg PO DAILY Qty: 90 1RF buspirone 15 mg tablet 15 mg PO TID 30 Days Qty: 90 3RF naltrexone 50 mg tablet 50 mg PO DAILY Qty: 30 3RF prazosin 2 mg capsule 2 mg PO QHS Qty: 30 2RF omeprazole 40 mg capsule,delayed release(DR/EC) 40 mg PO BID Qty: 180 1RF doxepin 10 mg capsule 10 mg PO QHS 30 Days Qty: 30 1RF Primary Care Provider: Margarita Garcia Referrals: Margarita Garcia MD [Primary Care Provider] - Print Language: Sri Lankan Disposition Disposition: Home, Self Care
[2024-06-04 16:30] LABS: Troponin T High Sens 2 HR < 6 ng/L (<=14)
== END 2024-06-04 16:47 | disposition home or self-care (01) ==
PROVIDERS: Emergency Provider Emergency Medicine; PCP Internal Medicine; Visit Provider Emergency Medicine
DX: R07.89 Other chest pain (principal); J44.9 Chronic obstructive pulmonary disease, unspecified; E78.5 Hyperlipidemia, unspecified; I10 Essential (primary) hypertension; Z86.73 Personal history of transient ischemic attack (TIA), and cerebral infarction without residual deficits; Z79.82 Long term (current) use of aspirin; Z79.899 Other long term (current) drug therapy; K21.9 Gastro-esophageal reflux disease without esophagitis; Z79.51 Long term (current) use of inhaled steroids; F41.9 Anxiety disorder, unspecified; Z90.710 Acquired absence of both cervix and uterus
CPT/HCPCS: 71046; 80048; 80076; 83690; 84484; 85025; 85379; 93005; 96374; 96375; 99285; A4216

== ENCOUNTER → 2024-07-10 | Outpatient (CLI) | payer OTHER, MEDICAID, SELFPAY ==
[2024-07-10 17:15] LABS: ALB/GLOB Ratio 1.6 RATIO (0.9-2.4); AST(SGOT) 18 U/L (<=31); Alanine Aminotransfer ALT/SGPT 17 U/L (<=34); Albumin, Serum 4.5 g/dL (3.4-4.8); Alkaline Phosphatase 144 U/L (35-104); Anion Gap 12 (5-15); BUN 7 mg/dL (4-19); BUN/Creat Ratio 10.6 RATIO (10-20); Calcium,Total 9.6 mg/dL (7.6-11.0); Chloride 95 mmol/L (98-108); Creatinine, Serum 0.68 mg/dL (0.70-1.20); EST Glomerular Filtration Rate 99 (>60); Globulin 2.8 g/dL (2.2-4.2); Glucose 88 mg/dL (70-99); Magnesium 2.2 mg/dL (1.5-2.2); Potassium 3.8 mmol/L (3.3-5.1); Protein, Total 7.3 g/dL (5.9-8.4); Sodium Level 132 mmol/L (133-145); Total Bilirubin 0.36 mg/dL (0.00-1.30)
== END | disposition home or self-care (01) ==
LOC: BIMLAB 14:31
PROVIDERS: PCP Internal Medicine; Referring Provider Internal Medicine; Visit Provider Internal Medicine
DX: I10 Essential (primary) hypertension (principal)
CPT/HCPCS: 36415; 80053; 83735

== ENCOUNTER → 2024-07-17 | Outpatient (CLI) | payer OTHER, MEDICAID, SELFPAY ==
--- NOTE | 2024-07-17 15:30 | BI_ITS ---
EXAM: SCRN MAMM (CAD)W/QUYNH BILAT DATE: 07/17/2024 CLINICAL HISTORY: F, Age 63 y/o , BREAST CANCER SCREENING No known family history BREAST CANCER RISK ASSESSMENT: Not assessed TECHNIQUE: Bilateral screening digital breast tomosynthesis with 2D and 3D images. Computer aided detection. COMPARISON: Prior exam(s) dated July 04, 2023.. FINDINGS: TISSUE DENSITY: The breast tissue is almost entirely fatty. Bilateral Breast Mammographic Findings: No significant masses, calcifications or other abnormalities are identified. No suspicious masses, areas of developing architectural distortion, or suspicious calcifications. There has been no significant interval change. BI/SCRN MAMM (CAD)W/QUYNH BILAT IMPRESSION: OVERALL FINAL ASSESSMENT: BIRADS 1 NEGATIVE RECOMMENDATION: Routine annual follow-up in 1 Year A letter with findings and recommendations will be mailed to the patient. Reading Location: [place] [address]
--- OUTSIDE RECORDS SUMMARY | 2024-07-17 19:15 | XMS RPT_ITS | CCD ---
Author Organization [facility] CliniSyor Care Team Providers Care Control Operator Flow Coat Name Role Phone DEVIN RAMIREZ Admitting Unavailable DEVIN RAMIREZ Attending Unavailable DEVIN RAMIREZ Primary Care Unavailable DEVIN RAMIREZ Consulting Unavailable PROVIDER, UNKNOWN Consulting Unavailable Dr. Lee Garcia Primary Care Provider [phone] Dr. Lee Garcia Referring Provider [phone] Dr. Rosamaria Graves Attending Provider [phone] Dr. Lee Garcia Attending Provider [phone] ZHANNA Ruiz Attending Provider Dr. Lee Garcia Primary Care Provider [phone]) Dr. Lee Garcia Attending Provider [phone] Dr. Lee Garcia Referring Provider [phone] Lee Garcia MD Primary Care Provider 1( 30) Lee Garcia MD Primary Care Provider 1( 30) LEE GARCIA MD Primary Care Physician ( 30) ARYA TAO PA-C Attending Unavailable LEE GARCIA MD Primary Care Unavailab davin MARAVILLA DPM, DR ALEGRIA Attending Unavailable LEE GARCIA MD Primary Care Unavailab RAZ Griffin MD Consulting Unavailab Lisbeth PONCE, DR ALEGRIA Attending Unavailable LEE GARCIA MD Primary Care Unavailab Lee Rizo MD Primary Care Provider 1( 30) LEE GARCIA Primary Care Unavailable EBONI WHITE Referring Unavailable OLEGHE, EFEWONGBE B Primary Care Unavailable OLEGHE, EFEWONGBE B Primary Care Unavailable OLEGHE, EFEWONGBE B Primary Care Unavailable Oleghe, Efewongbe Attending Unavailable Oleghe, Efewongbe Referring Unavailable Oleghe, Efewongbe Primary Care Unavailable Oleghe, Efewongbe Primary Care Unavailable Osvaldo Gonzalez Attending Unavailable Oleghe, Efewongbe Primary Care Unavailable [employer] Attending Unavailable Oleghe, Efewongbe Attending Unavailable Oleghe, Efewongbe Primary Care Unavailable Oleghe, Efewongbe Referring Unavailable Oleghe, Efewongbe Attending Unavailable Oleghe, Efewongbe Referring Unavailable Oleghe, Efewongbe Primary Care Unavailable Oleghe, Efewongbe Primary Care Unavailable Tamia Guerrero Referring Unavailable Tamia Guerrero Attending Unavailable Oleghe, Efewongbe Primary Care Unavailable Oleghe, Efewongbe Referring Unavailable Oleghe, Efewongbe Attending Unavailable Adore Gonzalez Attending Unavailable Oleghe, Efewongbe Primary Care Unavailable Oleghe, Efewongbe Primary Care Unavailable Osvaldo Gonzalez Attending Unavailable Oleghe, Efewongbe Primary Care Unavailable Tamia Guerrero Attending Unavailable Oleghe, Efewongbe Referring Unavailable Oleghe, Efewongbe Referring Unavailable Naye Araujo Attending Unavailable Oleghe, Efewongbe Primary Care Unavailable Oleghe, Efewongbe Primary Care Unavailable Osvaldo Gonzalez Attending Unavailable Oleghe, Efewongbe Primary Care Unavailable Oleghe, Efewongbe Referring Unavailable Oleghe, Efewongbe Attending Unavailable Oleghe, Efewongbe Attending Unavailable Oleghe, Efewongbe Referring Unavailable Oleghe, Efewongbe Primary Care Unavailable Oleghe, Efewongbe Attending Unavailable Oleghe, Efewongbe Referring Unavailable Oleghe, Efewongbe Primary Care Unavailable Naye Araujo Attending Unavailable Oleghe, Efewongbe Primary Care Unavailable Oleghe, Efewongbe Attending Unavailable Oleghe, Efewongbe Referring Unavailable Oleghe, Efewongbe Primary Care Unavailable Oleghe, Efewongbe Primary Care Unavailable Oleghe, Efewongbe Referring Unavailable Oleghe, Efewongbe Attending Unavailable Oleghe, Efewongbe Attending Unavailable Oleghe, Efewongbe Referring Unavailable Oleghe, Efewongbe Primary Care Unavailable Oleghe, Efewongbe Referring Unavailable Oleghe, Efewongbe Primary Care Unavailable Oleghe, Efewongbe Attending Unavailable Oleghe, Efewongbe Attending Unavailable Oleghe, Efewongbe Primary Care Unavailable Oleghe, Efewongbe Referring Unavailable Oleghe, Efewongbe Primary Care Unavailable Osvaldo Gonzalez Attending Unavailable Oleghe, Efewongbe Referring Unavailable Oleghe, Efewongbe Primary Care Unavailable Franko Charles Attending Unavailable Oleghe, Efewongbe Primary Care Unavailable Oleghe, Efewongbe Referring Unavailable Oleghe, Efewongbe Attending Unavailable Oleghe, Efewongbe Primary Care Unavailable Oleghe, Efewongbe Referring Unavailable Oleghe, Efewongbe Attending Unavailable Allergies Allergy Classification Reported Allergen(s) Allergy Type Date of Onset Reaction(s) Facility (15 sources) bee venom protein (honey bee); Translations: [BEE VENOM PROTEIN (HONEY BEE)] Allergy to substance 0 Shortness of Breath [facility] (1 source) bee venom protein (honey bee) Drug allergy (disorder) [address] [facility] Repository Medications Current Medications Medication Drug Class(es) Dates Sig (Normalized) Sig (Original) 8 hr acetaminophen 650 mg extended release oral tablet (12 sources) take 2 tablets by mouth every eight hours as needed acetaminophen 650 mg CR tablet Take 1,300 mg by mouth every 8 hours as needed for pain. Active Comment on above: Take 1,300 mg by carly every 8 hours as needed for pain. acetaminophen 325 mg / oxyCODONE hydrochloride 5 mg oral tablet (13 sources) Opioid Agonist Start: 11-23-2020 End: 12-07-2022 take 1-2 tablets by mouth every four hours as needed oxyCODONE-acetamino phen (PERCOCET) 5-325 mg tablet Indications: Post-operative pain Take 1-2 tablets by mouth every 4 hours as needed. 42 tablet 11/23/2020 Active Comment on above: Take 1-2 tablets by mouth every 4 hours as needed. [id number] 200 actuat albuterol 0.09 mg/actuat metered dose inhaler (16 sources) beta2-Adrenergic Agonist Start: 04-05-2017 take 2 puff(s) by inhalation every four hours as needed for wheezing albuterol HFA (VENTOLIN HFA) 90 mcg/actuation inhaler Inhale 2 Puffs as instructed every 4 hours as needed for Wheezing/Shortness of Breath. 1 Inhaler 04/05/2017 Active Start: 12-26-2016 take 1 puff(s) by in halation every four hours as needed Albuterol Sulfate Active 2 PUFF INHALATION EVERY 4 HOURS NEEDED December 26, 2016 1:00am Start: 06-15-2016 take 2 puff(s) by in halation four times daily as needed for wheezing Ventolin MDI HFA 2 puff(s), Inhalation, QID, PRN as needed for wheezing, 0 Refill(s) Start Date: 06/15/16 Status: Ordered Comment on above: Inhale 2 Puffs as in structed every 4 hours as needed for Wheezing/Shortness of Breath. amoxicillin 875 mg / clavulanate 125 mg oral tablet (6 sources) Penicillin-class Antibacterial Start: End: take 1 tablet by mouth twice daily amoxicillin-clavulana te potassium (AUGMENTIN) 875-125 mg per tablet Indications: Sinobronchitis Take 1 tablet by mouth two times a day for 5 days. 10 tablet 05/19/2024 05/24/2024 Active Start: 03-15-2024 End: 03-20-2024 take 1 tablet by mouth twice daily amoxicillin-clavulanate potassium (AUGMENTIN) 875-125 mg per tablet Indications: Bacterial sinusitis Take 1 tablet by mouth two times a day for 5 days. 10 tablet 03/15/2024 03/20/2024 Active Start: 10-21-2023 End: 10-28-2023 take 1 tablet by mouth every twelve hours amoxicillin-clavulanate potassium (AUGMENTIN) 875-125 mg per tablet Take 1 tablet by mouth every 12 hours for 7 days. 14 tablet 10/21/2023 10/28/2023 Active Start: 04-29-2023 End: 05-06-2023 take 1 tablet by mouth twice daily amoxicillin-clavulanate potassium (AUGMENTIN) 875-125 mg per tablet Take 1 tablet by mouth two times a day for 7 days. Patient should start on April 29, 2023. 14 tablet 0 04/29/2023 05/06/2023 Active Comment on above: Take 1 tablet by carly th two times a day for 7 days. Patient should start on April 29, 2023. apple cider vinegar 500 mg oral tablet (14 sources) Start: 0 take 1 tablet by mouth once daily Apple Cider Vinegar 500 mg tab Take by mouth once daily. 01/06/2020 Active Comment on above: Take by mouth once d aily. ARIPiprazole 10 mg oral tablet (18 sources) Atypical Antipsychotic Start: 3 Abilify 10 mg oral tablet Dose : 10 mg = 1 tab(s), Oral, qDay, # 30 tab(s), 0 Refill(s) Start Date: 11/30/22 Status: Ordered Start: 05-04-2020 take 1 tablet by carly th once daily Aripiprazole (Abilify) 2 mg tablet Active 2 MG PO DAILY May 04, 2020 12:00am Start: 01-29-2020 End: 04-01-2020 take 1 tablet by mouth at bedtime Aripiprazole (Abilify) 2 mg tablet Discontinued 2 MG PO AT BEDTIME January 29, 2020 1:00am April 01, 2020 12:13pm Comment on above: Take 2 mg by mouth d aily at bedtime. aspirin 81 mg chewable tablet (16 sources) Platelet Aggregation Inhibitor, Nonsteroidal Anti-inflammatory Drug Start: 12-27-2016 take 81 mg by mouth once daily Aspirin Active 81 MG PO DAILY@0800 December 27, 2016 1:00am Start: 06-15-2016 take 1 dose by mouth once lorena y aspirin Dose : 81 mg =, Oral, qDay, 0 Refill(s) Start Date: 06/15/16 Status: Ordered Comment on above: Take 81 mg by mouth once daily. atogepant 60 MG Oral Tablet [Qulipta] (2 sources) Start: 3 Qulipta 60 mg oral tablet Dose : 60 mg = 1 tab(s), Oral, qDay, 0 Refill(s) Start Date: 11/30/22 Status: Ordered benzonatate 100 mg oral capsule (18 sources) Non-narcotic Antitussive Start: 3 End: 4 take 1 capsule by mouth every eight hours as needed benzonatate (TESSALON PERLES) 100 mg capsule Take 1 capsule by mouth three times a day as needed for cough. 21 capsule 10/21/2023 Active Start: 11-30-2021 End: 04-27-2023 take 2 capsules by mouth every eight hours as needed benzonatate (TESSALON PERLES) 100 mg capsule Take 2 capsules by mouth three times daily as needed. 30 capsule 0 11/30/2021 04/27/2023 Discontinued (Course of therapy completed) Comment on above: Take 2 capsules by m outh three times daily as needed. Take 1 capsule by mo uth three times daily as needed for cough. Take 1 capsule by mo uth three times a day as needed. Budesonide-Formot fred (4 sources) Corticosteroid, beta2-Adrenergic Agonist Start: 03-07-2020 take 1 puff(s) by inhalation twice daily Budesonide-Formotero l Active 2 PUFF INHALATION TWICE A DAY March 07, 2020 3:46pm Start: 12-26-2016 End: 03-07-2020 take 1 puff(s) by inhalation twice daily Budesonide-Formoterol Discontinued 2 PUFF INHALATION TWICE A DAY December 26, 2016 1:00am March 07, 2020 3:55pm Calcium Carbonate (12 sources) Start: 11-21-2020 calcium carbon ate (TUMS ORAL) Take by mouth as needed. 11/21/2020 Active Start: 11-21-2020 calcium carbon ate (TUMS ORAL) Take by mouth as needed. 0 11/21/2020 Active Comment on above: Take by mouth as nee ded. 12 hr carBAMazepine 100 mg extended release oral capsule (14 sources) Mood Stabilizer Start: 1 take 100 mg by mouth twice daily Carbamazepine Active 100 MG PO TWICE A DAY October 06, 2020 12:00am carBAMazepine ER (CARBATROL) 200 mg 12 hr capsule Take 400 mg by mouth daily at bedtime. Active Comment on above: Take 400 mg by mouth daily at bedtime. Carboxymethylcellulose -Citric (Plenity (Safiacome Kit)) 0.75 gram capsule (2 sources) Start: 11-02-2021 Carboxymethylcellulose-C itric (Plenity (Welcome Kit)) 0.75 gram capsule Active 3 CAP PO TWICE A DAY 540 90 November 02, 2021 5:05pm administer before lunch and evening meal/dinner Start: 10-30-2021 End: 11-02-2021 Carboxymethylcellulose-Citri c (Plenity (Welcome Kit)) 0.75 gram capsule Discontinued 3 CAP PO TWICE A DAY 540 90 October 30, 2021 12:00am November 02, 2021 5:05pm administer before lunch and evening meal/dinner chlorproMAZINE hydrochloride 25 mg oral tablet (8 sources) Phenothiazine Start: 06-15-2016 End: 01-06-2020 take 1 dose by mouth twice daily chlorproMAZINE (Thorazine) Dose : 25 mg =, Oral, BID, 0 Refill(s) Start Date: 06/15/16 Status: Ordered Start: 06-15-2016 End: 01-06-2020 take 1 dose by mouth once daily chlorproMAZINE (Thorazine) Dose : 100 mg =, Oral, qDay, 0 Refill(s) Start Date: 06/15/16 Status: Ordered cholecalciferol 0.125 mg disintegrating oral tablet (14 sources) Vitamin D Start: 12-26-2016 take 5000 [IU] by mouth once daily Cholecalciferol (Vitamin D3) Active 5000 UNIT PO DAILY December 26, 2016 1:00am take 1 capsule by mouth once angie ly Cholecalciferol, Vitamin D3, 25 mcg (1,000 unit) cap Take 1,000 Units by mouth once daily. Active Comment on above: Take 1,000 Units by mouth once daily. Citalopram (2 sources) Serotonin Reuptake Inhibitor Start: take 1 dose by mouth once daily citalopram Dose : 60 mg =, Oral, qDay, 0 Refill(s) Start Date: 06/15/16 Status: Ordered clonazePAM 0.5 mg oral tablet (4 sources) Benzodiazepine Start: 7 End: 0 KlonoPIN 0.5 mg oral tablet Dose : 0.5 mg = 1 tab(s), Oral, TID, 0 Refill(s) Start Date: 06/15/16 Status: Ordered cloNIDine hydrochloride 0.1 mg oral tablet (4 sources) Central alpha-2 Adrenergic Agonist Start: take 0.1 mg by mouth every six hours Clonidine Hcl Active 0.1 MG PO EVERY 6 HOURS March 07, 2020 3:47pm Start: 01-29-2020 End: 03-07-2020 take 0.1 mg by mouth three times daily Clonidine Hcl Discontinued 0.1 MG PO THREE TIMES A DAY January 29, 2020 1:00am March 07, 2020 3:55pm Co-Q10 30 mg oral capsule (2 sources) Start: 06-15-2016 Co-Q10 30 mg o ral capsule Dose : 30 mg = 1 cap(s), Oral, TID, 0 Refill(s) Start Date: 06/15/16 Status: Ordered diclofenac sodium 0.01 mg/mg topical gel (6 sources) Nonsteroidal Anti-inflammatory Drug Start: 11-30-2022 diclofenac 1% top ical gel = gram(s), Topical, QID, 0 Refill(s), 78.9 Start Date: 11/30/22 Status: Ordered Start: 01-06-2020 apply 2 g topically once Diclo fenac Sodium Active 2 GM TOPICAL ONCE January 06, 2020 1:00am apply to single elbow, wrist or hand; for hand includes palm/fingers/back of hand Start: 12-26-2016 End: 01-06-2020 take 75 mg by mouth twice daily at mealtime Diclofenac Sodium Discontinued 75 MG PO TWICE DAILY WITH MEALS December 26, 2016 1:00am January 06, 2020 6:23pm doxepin hydrochloride 10 mg oral capsule (2 sources) Tricyclic Antidepressant Start: 11-30-2022 take 1 mg by mouth three times daily doxepin 10 mg oral capsule mg = cap(s), Oral, TID, 0 Refill(s) Start Date: 11/30/22 Status: Ordered doxycycline hyclate 100 mg oral tablet (4 sources) Tetracycline-class Drug Start: 10-31-2022 End: 11-10-2022 take 1 tablet by mouth twice daily doxycycline (VIBRA-TABS) 100 mg tablet Take 1 tablet by mouth twice daily for 10 days. 20 tablet 0 10/31/2022 11/10/2022 Active Start: 11-30-2021 End: 12-07-2021 take 1 tablet by mouth twice daily doxycycline (VIBRA-TABS) 100 mg tablet Take 1 tablet by mouth twice daily for 7 days. 14 tablet 0 11/30/2021 12/07/2021 Active Start: 04-05-2020 End: 07-06-2020 take 100 mg by mouth twice daily Doxycycline Hyclate Discontinued 100 MG PO TWICE A DAY April 05, 2020 1:00am July 06, 2020 5:38pm Hold Iron and Multivitamins until completed. Comment on above: Take 1 tablet by carly th twice daily for 7 days. Take 1 tablet by carly th twice daily for 10 days. DULoxetine 60 mg delayed release oral capsule (4 sources) Serotonin and Norepinephrine Reuptake Inhibitor Start: 06-16-19 End: 01-06-20 Cymbalta 60 mg oral delayed release capsule Dose : 60 mg = 1 cap(s), Oral, BID, 0 Refill(s) Start Date: 06/15/16 Status: Ordered eluxadoline 100 mg oral tablet (14 sources) mu-Opioid Receptor Agonist Start: 03-07-19 take 1 tablet by mouth once daily at mealtime Eluxadoline (Viberzi) 100 mg tablet Active 50 MG PO DAILY March 07, 2020 1:00am must administer with a meal/food eluxadoline (VIB ERZI) 100 mg tab Take 50 mg by mouth as needed (diarrhea). Active Comment on above: Take 50 mg by mouth as needed (diarrhea). escitalopram 10 mg oral tablet (10 sources) Serotonin Reuptake Inhibitor take 1 tablet by mouth once daily escitalopram oxalate (LEXAPRO) 10 mg tablet escitalopram 10 mg tablet TAKE 1 TABLET BY MOUTH DAILY Active Comment on above: escitalopram 10 mg t ablet TAKE 1 TABLET BY MOUTH DAILY estradiol 0.1 mg/ml vaginal cream (6 sources) Estrogen Start: 2 Estradiol (Estrace) 0.01 % (0.1 mg/gram) cream Active 1 GM VAGINAL TWICE A WEEK May 08, 2021 12:00am Start: 10-06-2020 End: 05-08-2021 estradiol Discontinued 1 MARIANNE LIC VAGINAL AT BEDTIME October 06, 2020 12:00am May 08, 2021 10:21am Start: 12-26-2016 End: 01-06-2020 Estradiol Discontinued 1 GM TD December 26, 2016 1:00am January 06, 2020 6:24pm Estradiol / Estriol (12 sources) Estrogen estradiol 0.01% estriol 0.01% topical cream (CPD) Apply to affected area daily at bedtime. Active estradiol 0.01% estriol 0.01% topical cream (CPD) Apply to affected area daily at bedtime. 0 Active Comment on above: Apply to affected ar ea daily at bedtime. 21 day ethinyl estradiol 0.889261 mg/hr / etonogestrel 0.005 mg/hr vaginal system (2 sources) Progestin, Estrogen Start: 3 ethinyl estradiol-etonogestr el 0.015 mg-0.120 mg/24 hours vaginal ring Dose = 1 EA, Vaginal, q4wk, 0 Refill(s) Start Date: 11/30/22 Status: Ordered evening primrose oil 1000 mg oral capsule (2 sources) Start: 7 take 1 capsule by mouth once daily Evening Austin Oil 1000 mg oral capsule See Instructions, 1 cap(s) Oral Daily, 0 Refill(s) Start Date: 06/15/16 Status: Ordered famotidine 10 mg oral tablet (2 sources) Histamine-2 Receptor Antagonist Start: 3 take 1 mg by mouth once famotidine 10 mg oral tablet mg = tab(s), Oral, Once, 0 Refill(s) Start Date: 11/30/22 Status: Ordered 60 actuat fluticasone propionate 0.25 mg/actuat / salmeterol 0.05 mg/actuat dry powder inhaler (11 sources) Corticosteroid, beta2-Adrenergic Agonist Start: 3 ADVAIR DISKUS 250-50 mcg/dose inhaler INHALE one INHALATION TWICE DAILY 03/22/2022 Active Comment on above: INHALE one INHALATIO N TWICE DAILY fluticasone propion-salmeterol (AIRDUO DIGIHALER) 113 mcg-14 mcg/actuation digihaler (12 sources) fluticasone propion-salmeterol (AIRDUO DIGIHALER) 113 mcg-14 mcg/actuation digihaler Inhale 1 Inhalation as instructed twice daily. Active fluticasone prop ion-salmeterol (AIRDUO DIGIHALER) 113 mcg-14 mcg/actuation digihaler Inhale 1 Inhalation as instructed twice daily. 0 Active Comment on above: Inhale 1 Inhalation as instructed twice daily. gabapentin 800 mg oral tablet (20 sources) Anti-epileptic Agent Start: 11-30-2022 gabapentin 800 mg oral tablet Dose : 800 mg = 1 tab(s), Oral, TID, # 90 tab(s), 0 Refill(s), 78.9 Start Date: 11/30/22 Status: Ordered Start: 07-14-2021 End: 10-11-2021 take 800 mg by mouth three times daily Gabapentin Active 800 MG PO THREE TIMES A DAY 90 October 11, 2021 2:00pm Start: 05-04-2020 End: 07-14-2021 take 800 mg by mouth three times daily Gabapentin Discontinued 800 MG PO THREE TIMES A DAY May 04, 2020 2:35pm July 14, 2021 3:50pm Start: 02-04-2020 End: 05-04-2020 take 600 mg by mouth three times daily Gabapentin Discontinued 600 MG PO THREE TIMES A DAY 90 April 05, 2020 1:41pm May 04, 2020 2:36pm Start: 01-06-2020 End: 02-04-2020 take 600 mg by mouth three times daily Gabapentin Discontinued 600 MG PO THREE TIMES A DAY January 06, 2020 1:00am February 04, 2020 12:08pm Comment on above: Take 800 mg by mouth three times daily. hydrOXYzine hydrochloride 50 mg oral tablet (18 sources) Antihistamine Start: 11-30-2022 hydrOXYzine hydrochloride 50 mg oral tablet Dose : 50 mg = 1 tab(s), Oral, QID, PRN as needed for anxiety, # 40 tab(s), 0 Refill(s) Start Date: 11/30/22 Status: Ordered Start: 03-07-2020 take 50 mg by mouth three times daily Hydroxyzine Hcl Active 50 MG PO THREE TIMES A DAY March 07, 2020 3:51pm Start: 01-06-2020 End: 03-07-2020 take 25 mg by mouth three times daily Hydroxyzine Hcl Discontinued 25 MG PO THREE TIMES A DAY January 06, 2020 1:00am March 07, 2020 3:55pm take 1 capsule by mo [facility] every eight hours as needed hydrOXYzine pamoate (VISTARIL) 50 mg capsule Take 50 mg by mouth three times daily as needed. Active Comment on above: Take 50 mg by mouth three times daily as needed. lamoTRIgine 200 mg oral tablet (18 sources) Mood Stabilizer, Anti-epileptic Agent Start: 11-30-2022 take 1 mg by mouth twice daily LaMICtal 200 mg oral tablet mg = tab(s), Oral, BID, 0 Refill(s) Start Date: 11/30/22 Status: Ordered Start: 03-07-2020 take 200 mg by mouth twice daily Lamotrigine Active 200 MG PO TWICE A DAY March 07, 2020 3:57pm Start: 01-06-2020 End: 03-07-2020 take 300 mg by mouth once daily Lamotrigine Discontinu ed 300 MG PO DAILY January 06, 2020 1:00am March 07, 2020 4:01pm take 1 tablet by carly twice daily lamoTRIgine (LAMICTAL) 150 mg tablet Take 150 mg by mouth twice daily. Active Comment on above: Take 150 mg by mouth twice daily. lisinopril 10 mg oral tablet (20 sources) Angiotensin Converting Enzyme Inhibitor Start: 12-26-2016 End: 10-11-2021 take 10 mg by mouth once daily Lisinopril Active 10 MG PO DAILY 90 October 11, 2021 2:00pm Start: 06-15-2016 lisinopril 20 mg oral tablet Dose : 20 mg = 1 tab(s), Oral, Daily, 0 Refill(s) Start Date: 06/15/16 Status: Ordered Comment on above: Take 10 mg by mouth once daily. Magnesium complex 400 mg (2 sources) Start: 11-30-2022 Magnesium complex 400 mg 0 Refill(s), 78.9 Start Date: 11/30/22 Status: Ordered melatonin 3 mg oral capsule (20 sources) Start: 05-12-2021 take 20 mg by mouth once daily at bedtime Melatonin Active 20 MG PO BEDTIME May 12, 2021 9:16am taking 20 mg QHS Start: 04-01-2020 End: 05-12-2021 take 6-9 mg by mouth at bedtime Melatonin Discontinued 6 MG PO BEDTIME April 01, 2020 12:15pm May 12, 2021 9:17am 6-9 MG Start: 03-07-2020 End: 04-01-2020 take 6-9 mg by mouth at bedtime Melatonin Discontinued 3 MG PO BEDTIME March 07, 2020 3:52pm April 01, 2020 12:18pm 6-9 MG Start: 01-06-2020 End: 03-07-2020 take 6-9 mg by mouth at bedtime Melatonin Discontinued 6 MG PO BEDTIME January 06, 2020 1:00am March 07, 2020 3:55pm 6-9 MG melatonin 10 mg tab Take by mouth daily at bedtime. 10-20 mg Active Comment on above: Take by mouth daily at bedtime. 10-20 mg montelukast 10 mg oral tablet (20 sources) Leukotriene Receptor Antagonist Start: 7 End: 2 take 1 tablet by mouth once daily at bedtime montelukast (SINGULAIR) 10 mg tablet Take 10 mg by mouth daily at bedtime. 3 01/24/2017 Active Comment on above: Take 10 mg by mouth daily at bedtime. multivit with calcium,iron,min (WOMEN'S MULTIPLE VITAMINS ORAL) (12 sources) multivit with calcium,iron,min (WOMEN'S MULTIPLE VITAMINS ORAL) Take by mouth once daily. Active multivit with ca lcium,iron,min (WOMEN'S MULTIPLE VITAMINS ORAL) Take by mouth once daily. 0 Active Comment on above: Take by mouth once d aily. Wk-Xhd-Veprr-Vit [id number] (Alive Women's 50 Plus (Blend)) 240-120-300 mcg tablet (2 sources) Start: 1 take 1 tablet by mouth once daily Ke-Tco-Vzzpz-Vit [id number] (Alive Women's 50 Plus (Blend)) 240-120-300 mcg tablet Active 1 TABLET PO DAILY March 07, 2020 1:00am naproxen sodium 220 mg oral capsule (12 sources) Nonsteroidal Anti-inflammatory Drug naproxen sodium 2 20 mg cap Take by mouth as needed (pain). 1-2 tablets Active Comment on above: Take by mouth as nee ded (pain). 1-2 tablets Neuriva Brain performance Plus (2 sources) Start: 3 Neuriva Brain performance Plus Oral, qDay, 0 Refill(s) Start Date: 11/30/22 Status: Ordered nystatin [id number] unt/ml oral suspension (11 sources) Polyene Antifungal Start: 3 nystatin (MYCOSTATIN) 100,000 unit/mL suspension Take 5 mL by mouth four times daily. 1tsp swish in mouth for several minutes, then swallow (or expectorate) 4 times daily until gone. 200 mL 04/06/2022 Active Comment on above: Take 5 mL by mouth f our times daily. 1tsp swish in mouth for several minutes, then swallow (or expectorate) 4 times daily until gone. olanzapine (18 sources) Atypical Antipsychotic Start: 3 OLANZapine Oral, qDay, 0 Refill(s) Start Date: 11/30/22 Status: Ordered Start: 04-01-2020 take 10 mg by mouth once daily Olanzapine Active 10 MG PO DAILY April 01, 2020 12:16pm Start: 03-07-2020 End: 04-01-2020 take 5 mg by mouth once daily Olanzapine Discontinued 5 MG PO DAILY March 07, 2020 1:00am April 01, 2020 12:18pm take 1 tablet by carly th once daily at bedtime OLANZapine (ZYPREXA) 10 mg tablet Take 10 mg by mouth daily at bedtime. Active Comment on above: Take 10 mg by mouth daily at bedtime. Merced-3 1050 mg oral capsule (2 sources) Start: 06-15-2016 Merced-3 1050 mg oral capsule Oral, TID, 0 Refill(s) Start Date: 06/15/16 Status: Ordered omeprazole 20 mg delayed release oral capsule (17 sources) Proton Pump Inhibitor Start: 10-30-2021 take 40 mg by mouth twice daily Omeprazole Active 40 MG PO TWICE A DAY October 30, 2021 10:15am Start: 01-24-2017 Omeprazole 40 mg capsule TAKE ONE CAPSULE AT 5PM 1 01/24/2017 Active Start: 12-26-2016 End: 10-30-2021 take 40 mg by mouth once daily Omeprazole Discontinued 40 MG PO DAILY December 26, 2016 1:00am October 30, 2021 10:16am Start: 06-15-2016 PriLOSEC 20 mg oral delayed release capsule (NF) Dose : 20 mg = 1 cap(s), Oral, qDay, 0 Refill(s) Start Date: 06/15/16 Status: Ordered Comment on above: TAKE ONE CAPSULE AT 5PM ondansetron 4 mg oral tablet (16 sources) Serotonin-3 Receptor Antagonist Start: End: take 1 tablet by mouth every eight hours Ondansetron Hcl (Zofran) 4 mg tablet Active 4 MG PO Q8H April 01, 2020 12:17pm Comment on above: Take by mouth every 8 hours as needed for nausea/vomiting. oseltamivir 75 mg oral capsule (1 source) Neuraminidase Inhibitor Start: End: take 1 capsule by mouth twice daily oseltamivir (TAMIFLU) 75 mg capsule Indications: Influenza A Take 1 capsule by mouth two times a day for 5 days. 10 capsule 03/15/2024 03/20/2024 Active OTC PRODUCT (10 sources) OTC PRODUCT Prevajen oral Extra strength Active OTC PRODUCT Prev ajen oral Extra strength 0 Active Comment on above: Prevajen oral Extra strength 24 hr oxybutynin chloride 10 mg extended release oral tablet (16 sources) Cholinergic Muscarinic Antagonist Start: 11-30-2022 take 1 tablet by mouth once daily oxybutynin 10 mg/24 hr oral tablet, extended release mg = tab(s), Oral, qDay, 0 Refill(s) Start Date: 11/30/22 Status: Ordered Start: 10-06-2020 take 15 mg by mouth once daily Oxybutynin Chloride Active 15 MG PO DAILY October 06, 2020 12:00am Comment on above: Take 15 mg by mouth once daily. polymyxin b [id number] unt/ml / trimethoprim 1 mg/ml ophthalmic solution (3 sources) Dihydrofolate Reductase Inhibitor Antibacterial, Polymyxin-class Antibacterial Start: 04-27-19 End: 05-04-19 take 1 drop(s) into the eye(s) every four hours trimethoprim-polymyxi n (POLYTRIM) 10,000 unit- 1 mg/mL ophthalmic solution Use 1 Drop in both eyes every 4 hours for 7 days. 10 mL 0 04/27/2023 05/04/2023 Active Comment on above: Use 1 Drop in both e yes every 4 hours for 7 days. prazosin 1 mg oral capsule (16 sources) alpha-Adrenergic Rupesh Start: 06-16-19 take 1 capsule by mouth once daily at bedtime prazosin (MINIPRESS) 1 mg cap Take 1 mg by mouth daily at bedtime. 3 01/24/2017 Active Comment on above: Take 1 mg by mouth d aily at bedtime. predniSONE 20 mg oral tablet (2 sources) Start: 05-20-19 End: 05-24-19 take 2 tablets by mouth once daily at mealtime predniSONE (DELTASONE) 20 mg tablet Indications: Sinobronchitis Take 2 tablets by mouth once daily for 4 days. Take daily with food. 8 tablet 05/19/2024 05/23/2024 Active Start: 11-30-2021 End: 12-05-2021 take 2 tablets by mouth once daily predniSONE (DELTASONE) 20 mg tablet Take 2 tablets by mouth once daily for 5 days. 10 tablet 0 11/30/2021 12/05/2021 Active Comment on above: Take 2 tablets by mo uth once daily for 5 days. pregabalin 75 mg oral capsule (4 sources) Start: 06-16-19 End: 01-06-20 Lyrica 75 mg oral capsule Dose : 75 mg = 1 cap(s), Oral, BID, 0 Refill(s) Start Date: 06/15/16 Status: Ordered simvastatin 20 mg oral tablet (20 sources) HMG-CoA Reductase Inhibitor Start: 06-16-19 End: 10-12-19 take 1 tablet by mouth once daily at bedtime simvastatin (ZOCOR) 20 mg tablet Take 20 mg by mouth daily at bedtime. 3 01/24/2017 Active Comment on above: Take 20 mg by mouth daily at bedtime. Symbicort 160 mcg-4.5 mcg/inh Inhaler (2 sources) Start: 06-16-19 take 1 dose by inhalation twice daily Symbicort 160 mcg-4.5 mcg/inh Inhaler Dose = 2 puff(s), Inhalation, BID, 0 Refill(s) Start Date: 06/15/16 Status: Ordered traZODone hydrochloride 100 mg oral tablet (16 sources) Serotonin Reuptake Inhibitor Start: 05-13-19 take 100 mg by mouth at bedtime Trazodone Active 100 MG PO AT BEDTIME 90 May 12, 2021 9:46am Start: 01-29-2020 take 2 tablets by mo uth once daily at bedtime traZODone (DESYREL) 50 mg tablet Take 100 mg by mouth daily at bedtime. 01/29/2020 Active Start: 01-29-2020 End: 05-12-2021 take 50 mg by mouth once daily Trazodone Discontinued 50 MG PO DAILY January 29, 2020 1:00am May 12, 2021 9:46am Comment on above: Take 100 mg by mouth daily at bedtime. triamcinolone acetonide 0.001 mg/mg oral paste (2 sources) Corticosteroid Start: 12-01-19 triamcinolone 0.1% topical paste Oral, 0 Refill(s), 78.9 Start Date: 11/30/22 Status: Ordered Turmeric Root Extract (16 sources) Start: 01-06-20 take 1000 mg by mouth twice daily Turmeric Root Extract Active 1000 MG PO TWICE A DAY January 06, 2020 6:27pm Start: 12-26-2016 End: 01-06-2020 take 1000 mg by mouth once daily Turmeric Root Extract Discontinued 1000 MG PO DAILY December 26, 2016 1:00am January 06, 2020 6:35pm take 500 mg by mouth once daily TURMERIC ORAL Take 500 mg by mouth once daily. Active take 500 mg by mouth once daily TURMERIC ORAL Take 500 mg by mouth once daily. 0 Active Comment on above: Take 500 mg by mouth once daily. ubidecarenone 30 mg oral capsule (4 sources) Start: 03-07-2020 Coenzyme Q10 Active 60 MG PO DAILY March 07, 2020 3:48pm Start: 12-26-2016 End: 03-07-2020 Coenzyme Q10 Discontinued 30 MG PO DAILY December 26, 2016 1:00am March 07, 2020 3:55pm ubiquinol 200 mg oral capsule (12 sources) take 200 mg by mouth once daily COQ10, UBIQUINOL, ORAL Take 200 mg by mouth once daily. Active Comment on above: Take 200 mg by mouth once daily. vitamin b12 0.5 mg oral tablet (16 sources) Vitamin B12 Start: 12-26-2016 take 500 ug by mouth once daily Cyanocobalamin (Vitamin B-12) Active 500 MCG PO DAILY December 26, 2016 1:00am Start: 06-15-2016 take 1 dose by mouth once lorena y Vitamin B12 Dose : 500 mcg =, Oral, qDay, 0 Refill(s) Start Date: 06/15/16 Status: Ordered Comment on above: Take by mouth once d aily. vitamin b6 100 mg oral tablet (18 sources) Start: 04-01-2020 take 100 mg by mouth once daily Pyridoxine (Vitamin B6) Active 100 MG PO DAILY April 01, 2020 1:00am Start: 03-07-2020 End: 03-07-2020 pyridoxine (vitamin B6) 50 m g capsule Discontinued 100 MG PO DAILY March 07, 2020 3:54pm March 07, 2020 4:00pm Start: 01-06-2020 End: 03-07-2020 take 1 capsule by mouth twice daily pyridoxine (vitamin B6) 50 mg capsule Discontinued 50 MG PO TWICE A DAY January 06, 2020 1:00am March 07, 2020 3:55pm Comment on above: Take 100 mg by mouth once daily. Vitamin D3 1000 intl units oral tablet (2 sources) Start: 06-15-2016 Vitamin D3 1000 intl units oral tablet Dose : 1,000 unit(s) = 1 tab(s), Oral, Daily, 0 Refill(s) Start Date: 06/15/16 Status: Ordered Completed/Discontinued Medications Medication Drug Class(es) Dates Sig (Normalized) Sig (Original) acetaminophen 325 mg / HYDROcodone bitartrate 5 mg oral tablet (2 sources) Opioid Agonist Start: 12-28-2019 End: 12-30-2019 take 1 tablet by mouth every four hours as needed Hydrocodone-Acetamin ophen Discontinued 1 TABLET PO EVERY 4 HOURS NEEDED 10 December 28, 2019 December 30, 2019 1:02am ascorbic acid 500 mg chewable tablet (2 sources) Vitamin C Start: 12-26-2016 End: 03-07-2020 take 1000 mg by mouth once daily Ascorbic Acid (Vitamin C) Discontinued 1000 MG PO DAILY December 26, 2016 1:00am March 07, 2020 3:46pm biotin 2.5 mg oral capsule (2 sources) Start: 01-06-2020 End: 03-07-2020 take 2500 ug by mouth once daily Biotin Discontinued 2500 MCG PO DAILY January 06, 2020 1:00am March 07, 2020 3:46pm 24 hr buPROPion hydrochloride 150 mg extended release oral tablet (2 sources) Aminoketone Start: 01-29-2020 End: 03-07-2020 take 1 tablet by mouth once daily in the morning Bupropion Hcl (Wellbutrin Xl) 150 mg tablet extended release 24 hr Discontinued 150 MG PO EVERY MORNING January 29, 2020 1:00am March 07, 2020 3:47pm cephalexin 500 mg oral tablet (2 sources) Cephalosporin Antibacterial Start: 02-15-2021 End: 05-08-2021 take 500 mg by mouth every twelve hours Cephalexin Discontinued 500 MG PO Q12H February 15, 2021 1:00am May 08, 2021 10:12am cyclobenzaprine hydrochloride 10 mg oral tablet (20 sources) Muscle Relaxant Start: 06-15-2016 End: 05-15-2021 take 5-10 mg by mouth twice daily Cyclobenzaprine Discontinued 5 - 10 MG PO TWICE A DAY February 11, 2020 2:38pm May 15, 2021 10:37am Comment on above: Take by mouth as nee ded. Joselyn Debj-Qdjgjzis-Ilycee jessika Ac (2 sources) Start: 12-26-2016 End: 03-07-2020 take 1000 mg by mouth once daily before mealtime Joselyn Pvku-Uipmbfih-Yfdnds jessika Ac Discontinued 1000 MG PO DAILY December 26, 2016 1:00am March 07, 2020 3:49pm ferrous sulfate 325 mg delayed release oral tablet (4 sources) Start: 01-06-2020 End: 10-30-2021 take 325 mg by mouth once daily Ferrous Sulfate Discontinued 325 MG PO DAILY April 01, 2020 12:15pm October 30, 2021 10:16am twice weekly Fish,Bora,Flax Oils-Om3,6,9no1 (2 sources) Start: 12-26-2016 End: 03-07-2020 take 600 mg by mouth three times daily Fish,Bora,Flax Oils-Om3,6,9no1 Discontinued 600 MG PO THREE TIMES A DAY December 26, 2016 1:00am March 07, 2020 3:49pm FLUoxetine 40 mg oral capsule (2 sources) Serotonin Reuptake Inhibitor Start: 01-06-2020 End: 10-21-2020 take 40 mg by mouth once daily in the evening Fluoxetine Discontinued 40 MG PO EVERY EVENING January 06, 2020 1:00am October 21, 2020 9:20am ibuprofen 400 mg oral tablet (6 sources) Nonsteroidal Anti-inflammatory Drug Start: 06-16-2016 End: 06-23-2016 ibuprofen 400 mg oral tablet Dose : 400 mg = 1 tab(s), Oral, q8h, 0 Refill(s) Start Date: 06/16/16 Stop Date: 06/23/16 Status: Ordered Start: 06-15-2016 End: 01-06-2020 ibuprofen 600 mg oral tablet Dose : 600 mg = 1 tab(s), Oral, q6hr, PRN as needed for pain, 0 Refill(s) Start Date: 06/15/16 Status: Ordered lidocaine hydrochloride 0.02 mg/mg topical gel (16 sources) Antiarrhythmic, Amide Local Anesthetic Start: 12-26-2016 End: 03-07-2020 apply 1 mL topically three times daily Lidocaine Hcl Discontinued 5 ML TOPICAL THREE TIMES A DAY December 26, 2016 1:00am March 07, 2020 3:52pm Start: 06-15-2016 lidocaine topi lexis 2% gel Topical, 0 Refill(s) Start Date: 06/15/16 Status: Ordered lidocaine (LIDOC ARE TOPICAL) Apply to affected area as needed. Active lidocaine (LIDOC ARE TOPICAL) Apply to affected area as needed. 0 Active Comment on above: Apply to affected ar ea as needed. Magnesium (2 sources) Start: 0 End: 1 take 250 mg by mouth once daily Magnesium Discontinued 250 MG PO DAILY January 06, 2020 1:00am March 07, 2020 3:52pm menthol 0.025 mg/mg topical gel (2 sources) Start: 1 End: 2 Menthol (Icy Hot Pain Relieving) 2.5 % gel Discontinued 1 APPLIC TOPICAL 2 to 4 times per day March 07, 2020 1:00am May 08, 2021 10:13am Multivitamin With Folic Acid (2 sources) Start: 7 End: 1 take 1 tablet by mouth once daily Multivitamin With Folic Acid Discontinued 1 TABLET PO DAILY December 26, 2016 1:00am March 07, 2020 3:53pm STRESS RELEIF GUMMY (2 sources) Start: 0 End: 1 take 1 tablet by mouth once daily as needed STRESS RELEIF GUMMY Discontinued 1 TABLET PO DAILY NEEDED January 06, 2020 1:00am March 07, 2020 3:55pm sucralfate 1000 mg oral tablet (4 sources) Aluminum Complex Start: 7 End: 0 take 1 g by mouth four times daily Sucralfate Discontinued 1 GM PO 4 TIMES DAILY December 26, 2016 1:00am January 06, 2020 6:27pm Start: 06-15-2016 Carafate 1 g o ral tablet Dose : 1 gram(s) = 1 tab(s), Oral, QID, 0 Refill(s) Start Date: 06/15/16 Status: Ordered Winters Water Pill (2 sources) Start: 12-26-2016 End: 04-01-2020 take 1 tablet by mouth three times daily Winters Water Pill Discontinued 1 TABLET PO THREE TIMES A DAY December 26, 2016 1:00am April 01, 2020 12:17pm vortioxetine 10 mg oral tablet (2 sources) Start: 12-26-2016 End: 01-06-2020 take 20 mg by mouth once daily Vortioxetine Discontinued 20 MG PO DAILY December 26, 2016 1:00am January 06, 2020 6:35pm Zinc (2 sources) Start: 01-06-2020 End: 03-07-2020 take 50 mg by mouth once daily Zinc Discontinued 50 MG PO DAILY January 06, 2020 1:00am March 07, 2020 3:55pm Problems Active Problems Problem Classification Problem Date Documented Da te Episodic/Chronic Acute cerebrovascular disease (2 sources) Cerebrovascular accident; Translations: [Cerebral infarction, unspecified] Chronic Alcohol-related disorders (1 source) Alcohol dependence, in remission; Translations: [Alcohol dependence, in remission] Onset: 04-10-2024 Chronic Anxiety disorders (6 sources) Anxiety; Translations: [Anxiety disorder, unspecified] 06-15-2016 Chronic Coagulation and hemorrhagic disorders (1 source) Petechiae; Translations: [Spontaneous ecchymoses] 04-29-2023 Episodic Conditions associated with dizziness or vertigo (2 sources) Dizziness; Translations: [Dizziness and giddiness] Episodic Disorders of lipid metabolism (6 sources) Hyperlipidemia, unspecified; Translations: [Hyperlipidemia] Onset: 01-07-2019 Chronic Essential hypertension (7 sources) Essential (primary) hypertension; Translations: [Hypertensive disorder] Onset: 01-07-2019 Chronic Fever of unknown origin (1 source) Fever; Translations: [Fever presenting with conditions classified elsewhere] 03-15-2024 Episodic Fluid and electrolyte disorders (2 sources) Hyponatremia; Translations: [Hypo-osmolality and hyponatremia] Episodic Headache; including migraine (2 sources) Headache; Translations: [Headache] Episodic Immunizations and screening for infectious disease (7 sources) Patient encounter status; Translations: [Encounter for screening for COVID-19] Episodic Inflammation; infection of eye (except that caused by tuberculosis or sexually transmitteddisease) (2 sources) Acute conjunctivitis of bilateral eyes; Translations: [Unspecified acute conjunctivitis, bilateral] 04-27-2023 Episodic Influenza (1 source) Influenza due to Influenza A virus; Translations: [Influenza due to other identified influenza virus with other respiratory manifestations] 03-15-2024 Episodic Menopausal disorders (2 sources) Atrophy of vagina; Translations: [Postmenopausal atrophic vaginitis] Chronic Mood disorders (12 sources) Depressive disorder; Translations: [Depression with suicidal ideation] Onset: 04-10-2024 Chronic Mycoses (1 source) Candidiasis of mouth; Translations: [Candidal stomatitis] Episodic Nausea and vomiting (1 source) Nausea; Translations: [Nausea] Onset: 07-14-2024 Episodic Nonspecific chest pain (1 source) Other chest pain; Translations: [Other chest pain] Onset: 07-10-2024 Episodic Osteoarthritis (2 sources) Primary osteoarthritis, right ankle and foot; Translations: [Primary osteoarthritis, right ankle and foot] Onset: 11-30-2022 Chronic Other circulatory disease (2 sources) Orthostatic hypotension; Translations: [Orthostatic hypotension] Episodic Other circulatory disease (1 source) Ecchymosis; Translations: [Hemorrhage, not elsewhere classified] 04-29-2023 Episodic Other connective tissue disease (2 sources) Fibromyalgia; Translations: [Fibromyalgia] Episodic Other diseases of bladder and urethra (3 sources) Overactive bladder; Translations: [Overactive bladder] 03-26-2023 Chronic Other eye disorders (1 source) Bilateral subconjunctival hemorrhage; Translations: [Conjunctival hemorrhage, bilateral] 04-29-2023 Episodic Other gastrointestinal disorders (2 sources) Difficulty swallowing solids; Translations: [Dysphagia, unspecified] Episodic Other gastrointestinal disorders (1 source) Other constipation; Translations: [Other constipation] Onset: 07-14-2024 Episodic Other lower respiratory disease (1 source) Cough; Translations: [Acute cough] 10-31-2022 Episodic Other lower respiratory disease (1 source) Wheezing; Translations: [Wheezing] 04-29-2023 Episodic Other lower respiratory disease (2 sources) Cough; Translations: [Subacute cough] 05-19-2024 Episodic Other nervous system disorders (2 sources) Chronic pain; Translations: [Other chronic pain] Chronic Other nervous system disorders (1 source) Other chronic pain; Translations: [Other chronic pain] Onset: 04-03-2024 Chronic Other nervous system disorders (1 source) Postoperative pain ; Translations: [Other acute postprocedural pain] Onset: 11-30-2022 Episodic Other nutritional; endocrine; and metabolic disorders (1 source) Body mass index 25-29 - overweight; Translations: [Overweight] Episodic Other nutritional; endocrine; and metabolic disorders (1 source) Overweight; Translations: [Overweight] Episodic Other screening for suspected conditions (not mental disorders or infectious disease) (1 source) Encounter for screening mammogram for malignant neoplasm of breast; Translations: [Encounter for screening mammogram for malignant neoplasm of breast] Onset: 07-14-2024 Episodic Other upper respiratory infections (4 sources) Chronic sinusitis; Translations: [Chronic sinusitis, unspecified] Chronic Other upper respiratory infections (4 sources) Viral upper respiratory tract infection; Translations: [Acute upper respiratory infection, unspecified] 10-31-2022 Episodic Otitis media and related conditions (2 sources) Otitis media; Translations: [Otitis media, unspecified, bilateral] Episodic Belen-; endo-; and myocarditis; cardiomyopathy (except that caused by tuberculosis or sexually transmitted disease) (2 sources) Pericardial effusion - noninflammatory; Translations: [Pericardial effusion (noninflammatory)] Episodic Poisoning by nonmedicinal substances (2 sources) Bee sting; Translations: [Toxic effect of venom of bees, accidental (unintentional), initial encounter] Episodic Residual codes; unclassified (2 sources) Obstructive sleep apnea syndrome; Translations: [Obstructive sleep apnea (adult) (pediatric)] Chronic Residual codes; unclassified (2 sources) Insomnia; Translations: [Insomnia, unspecified] Episodic Residual codes; unclassified (2 sources) Memory impairment; Translations: [Other amnesia] Episodic Residual codes; unclassified (2 sources) Early satiety; Translations: [Early satiety] Onset: 07-14-2024 Episodic Unclassified (2 sources) Subacute cough; Translations: [Subacute cough] Onset: 05-19-2024 Unclassified (1 source) Cough, unspecified; Translations: [Cough, unspecified] Onset: 06-04-2024 Unclassified (1 source) Low back pain, unspecified; Translations: [Low back pain, unspecified] Onset: 03-05-2024 Viral infection (2 sources) Viral disease; Translations: [Viral infection, unspecified] Episodic Past or Other Problems Problem Classification Problem Date Documented Da te Episodic/Chronic Heart valve disorders (1 source) Cardiac murmur, unspecified; Translations: [Cardiac murmur, unspecified] Onset: 12-09-2023 Episodic Other bone disease and musculoskeletal deformities (1 source) Other specified disorders of bone density and structure, unspecified site; Translations: [Other specified disorders of bone density and structure, unspecified site] Onset: 11-26-2023 Episodic Residual codes; unclassified (2 sources) Insomnia, unspecified; Translations: [Insomnia, unspecified] Onset: 04-10-2024 Episodic Spondylosis; intervertebral disc disorders; other back problems (8 sources) Chronic back pain ; Translations: [Dorsalgia, unspecified] Onset: 04-03-2024 06-15-2016 Episodic Results Test Name Value Interpretation Reference Range Facility Gastroenterology Visit Repor ton 07-14-2024 Gastroenterology Visit Report [facility] [address] [place] [address] OFFICE VISIT Date of Service: 07/14/24 MR#: [id number] Acct: [id number] Name: CONNIE GREENBERG Rep #: [id number] : 1960 Provider: URIEL mcdonald Age/Sex: 63/F Location[place] [facility] [place]: Signed Intake Vital Signs 07/10/24 13:58 Height 5 ft 2 in Weight: 158 lb BMI 28.9 BP 138/80 H Blood Pressure Location Lt brachial Position Sitting Respiration 18 Pulse 91 Pulse Source Monitor Temp 97.8 F Temp Source Temporal Pulse Oximetry (%) 98 Oxygen Delivery Method room air Intake Visit Reasons: Constipation Chief Complaint: 3 M FU Allergies bee venom protein (honey bee) Allergy (Mild, Verified 07/14/24 13:30) SWELLING/ SOB Medications ???Medication ???Instructions ???Recorded ???Confirmed ???Type albuterol sulfate 90 mcg/actuation 2 puff inhalation Q4H PRN PRN So b 12/26/16 07/14/24 History aerosol inhaler /Or Wheezing cholecalciferol (vitamin D3) 125 5,000 unit PO DAILY vitamin 07/14/24 History mcg (5,000 unit) disintegrating tablet cyanocobalamin (vitamin B-12) 500 500 mcg PO DAILY vitamin 12/26/16 07/14/24 History mcg tablet aspirin 81 mg chewable tablet 81 mg PO DAILY@0800 blood thinner 12/27/16 07/14/24 Rx jfcutsuo-qgbw-lmfkw acid 240 1 tab PO DAILY vitamin 03/07/20 History mcg-vit K 120 [id number]-rqoh 293 tablet (Alive Women's 50 Plus (fruit-veg blend)) pyridoxine (vitamin B6) 100 mg 100 mg PO DAILY vitamin 04/01/20 0 07/14/24 History tablet magnesium 200 mg tablet 400 mg PO QHS vitamin 09/13/2205/05 History famotidine 20 mg tablet mg PO DAILY 03/19/23 07/14/24 Hist ory cetirizine 10 mg capsule (Zyrtec) 10 mg PO DAILY PRN 08/02/2307/14 History d-mannose 500 mg capsule (AZO mg PO 08/02/23 07/14/24 History D-Mannose) selenium 200 mcg capsule 200 mcg PO DAILY 08/02/23 07/14/24 History lisinopril 20 mg tablet 20 mg PO DAILY bp #90 tabs 4 07/14/24 Rx riboflavin (vitamin B2) 100 mg 100 mg PO QDAY 11/04/23 07/14/24 H istory tablet simvastatin 20 mg tablet 20 mg PO QHS hld #90 tabs 11/04/23 07/14/24 Rx estradiol 0.01% (0.1 mg/gram) 1 g vaginal 2XW hormone #42.5 gram s 12/17/23 07/14/24 Rx vaginal cream (Estrace) montelukast 10 mg tablet 10 mg PO DAILY asthma #90 tabs 11/0507/14/24 Rx buspirone 15 mg tablet 15 mg PO TID 30 days #90 tabs 02/1107/14/24 Rx naltrexone 50 mg tablet 50 mg PO DAILY #30 tabs 04/06/24 0 07/14/24 Rx escitalopram oxalate 10 mg tablet 10 mg PO DAILY depression #30 tab s 04/09/24 07/14/24 Rx lamotrigine 200 mg tablet 200 mg PO QHS seizure 30 days #30 04/09/24 07/14/24 Rx tabs arm brace (Wrist Brace) #1 ea 04/10/24 07/14/24 Rx cyclobenzaprine 10 mg tablet 5 mg (1/2 x 10 mg) PO HS PRN 04/1007/14/24 Rx muscle spasm #30 tabs ferrous sulfate 325 mg (65 mg 325 mg PO .1x/wk 04/10/24 07/14/24 History iron) tablet (Feosol) prazosin 2 mg capsule 2 mg PO QHS nightmares #30 caps 07/14/24 Rx doxepin 10 mg capsule 10 mg PO QHS 30 days #30 caps 05/1307/14/24 Rx omeprazole 40 mg capsule,delayed 40 mg PO BID stomach #180 caps 07/14/24 Rx release benzonatate 200 mg capsule 200 mg PO TID cough #30 caps 06/0307/14/24 Rx fluticasone propionate 50 1 spray intranasal QDAY #16 grams 06/05/24 07/14/24 Rx mcg/actuation nasal spray,suspension (Allergy Relief (fluticasone)) albuterol 90 mcg-budesonide 80 2 inh inhalation ONCE #10.7 grams 06/25/24 07/14/24 Rx mcg/actuation HFA aerosol inhaler (Airsupra) meloxicam 15 mg tablet 15 mg PO QDAY PRN pain #30 tabs 07/14/24 Rx amitriptyline 10 mg tablet 10 mg PO QHS #30 tabs 07/14/2405/05 Rx PFSH Medical History Alcohol use disorder De Quervain's tenosynovitis, left Chronic constipation Cough Hot flashes, menopausal CHIQUI (obstructive sleep apnea) Migraine Obesity (BMI 30.0-34.9) Murmur Osteopenia Fatigue Health care maintenance Right otitis media with effusion Alcohol use disorder, severe, in early remission Chronic headache Low libido Dermatitis, contact Sinusitis Bipolar II disorder Overweight (BMI 25.0-29.9) Screening for STD (sexually transmitted disease) Insomnia Flu vaccine need Bee sting reaction Difficulty swallowing solids Hyponatremia Dizziness Vaginal atrophy OAB (overactive bladder) Memory impairment Sciatica Hernia History of stroke IBS (irritable bowel syndrome) Hx of migraine headaches GI problem Emphysema lung COPD (chronic obstructive pulmonary disease) Back pain Anemia Arthritis Seasonal allergies Anxiety right scapular mas (more content not included)... Normal [facility] Comprehensive Metabolic Prof ilon 07-10-2024 Albumin [Mass/Vol] 4.5 g/dL Normal 3.4-4.8 [facility] Comment on above: Performed By: #### L [id number], [id number] ####[facility] [id number] [place], [address] Albumin/Globulin [Mass ratio] 1.6 {ratio} Normal 0.9-2.[address] [facility] Comment on above: Performed By: #### L [id number], [id number] ####[facility] [id number] [place], [address] ALK PHOS 144 U/L High 35-[address] [facility] Comment on above: Performed By: #### L [id number], [id number] ####[facility] [id number] [place], [address] ALT [Catalytic activity/Vol] 17 U/L Normal <=[address] [facility] Comment on above: Performed By: #### L [id number], [id number] ####[facility] [id number] [place], [address] AST [Catalytic activity/Vol] 18 U/L Normal <=[address] [facility] [facility] Comment on above: Performed By: #### L 501.5200, L500.4050 ####[facility] [address] [place], [address] Bilirubin [Mass/Vol] 0.36 mg/dL Normal 0.00-1.30 [facility] Comment on above: Performed By: #### L 501.5200, L500.4050 ####[facility] [address] [place], [address] BUN/CRE 10.6 RATIO Normal 10-[address] [facility] Comment on above: Performed By: #### L 501.5200, L500.4050 ####[facility] [address] [place], [address] Calcium [Mass/Vol] 9.6 mg/dL Normal 7.6-11.0 [facility] Comment on above: Performed By: #### L 501.5200, L500.4050 ####[facility] [address] [place], [address] Chloride [Moles/Vol] 95 mmol/L Low 98-108 [facility] Comment on above: Performed By: #### L 501.5200, L500.4050 ####[facility] [address] [place], [address] CO2 [Moles/Vol] 25.0 mmol/L Normal 21.0-32.[address] [facility] Comment on above: Performed By: #### L 501.5200, L500.4050 ####[facility] [address] [place], [address] Creatinine [Mass/Vol] 0.68 mg/dL Low 0.70-1.[address] [facility] Comment on above: Performed By: #### L 501.5200, L500.4050 ####[facility] [address] [place], [address] GAP 12 Normal 5-[address] [facility] Comment on above: Performed By: #### L 501.5200, L500.4050 ####[facility] [address] [place], [address] GFR/1.73 sq M.predicted among non-blacks MDRD (S/P/Bld) [Vol rate/Area] 99 mL/min/{1.73_m2} Normal >[address] [facility] Comment on above: Result Comment: mL/m in/1.73m2 CKD-EPI Creatinine Equation (2020) Performed By: #### L 501.5200, L500.4050 ####[facility] [address] [place], [address] Globulin (S) [Mass/Vol] 2.8 g/dL Normal 2.2-4.[address] [facility] Comment on above: Performed By: #### L 501.5200, L500.4050 ####[facility] [address] [place], [address] Glucose [Mass/Vol] 88 mg/dL Normal 70-99 [facility] Comment on above: Performed By: #### L 501.5200, L500.4050 ####[facility] [address] [place], [address] Potassium [Moles/Vol] 3.8 mmol/L Normal 3.3-5.[address] [facility] Comment on above: Performed By: #### L 501.5200, L500.4050 ####[facility] [address] [place], [address] Sodium [Moles/Vol] 132 mmol/L Low 133-145 [facility] Comment on above: Performed By: #### L 501.5200, L500.4050 ####[facility] [address] [place], [address] T PROT 7.3 g/dL Normal 5.9-8.[address] [facility] Comment on above: Performed By: #### L 501.5200, L500.4050 ####[facility] [address] [place], [address] Urea nitrogen [Mass/Vol] 7 mg/dL Normal 4-[address] [facility] Comment on above: Performed By: #### L 501.5200, L500.4050 ####[facility] [address] [place], [address] Internal Medicine Office Vis iton 07-10-2024 Internal Medicine Office Visit [facility] [address] [place] [address] OFFICE VISIT Date of Service: 07/10/24 MR#: [id number] Acct: [id number] Name: CONNIE GREENBERG Rep #: [id number] : 1960 Provider: Dr. Lee gallo MD Age/Sex: 63/F Location: [facility] [place] Status: Signed Intake Vital Signs 04/10/24 10:26 06/04/24 13:41 07/10/24 13:58 Height 5 ft 2 in 5 ft 2 in 5 ft 2 in Weight: 158 lb BMI 28.9 BP 138/80 H Blood Pressure Location Lt brachial Position Sitting Respiration 18 Pulse 91 Pulse Source Monitor Temp 97.8 F Temp Source Temporal Pulse Oximetry (%) 98 Oxygen Delivery Method room air Intake Visit Reasons: 3 M FU Chief Complaint: 3 M FU Is patient in pain?: No Allergies bee venom protein (honey bee) Allergy (Mild, Verified 07/10/24 13:59) SWELLING/ SOB Medications ???Medication ???Instructions ???Recorded ???Confirmed ???Type albuterol sulfate 90 mcg/actuation 2 puff inhalation Q4H PRN PRN So b 12/26/16 07/10/24 History aerosol inhaler /Or Wheezing cholecalciferol (vitamin D3) 125 5,000 unit PO DAILY vitamin 07/10/24 History mcg (5,000 unit) disintegrating tablet cyanocobalamin (vitamin B-12) 500 500 mcg PO DAILY vitamin 12/26/16 07/10/24 History mcg tablet aspirin 81 mg chewable tablet 81 mg PO DAILY@0800 blood thinner 12/27/16 07/10/24 Rx owkjzgkg-riaz-dcovd acid 240 1 tab PO DAILY vitamin 03/07/20 History mcg-vit K 120 glc-yvldjf-erji 293 tablet (Alive Women's 50 Plus (fruit-veg blend)) pyridoxine (vitamin B6) 100 mg 100 mg PO DAILY vitamin 04/01/20 0 07/10/24 History tablet magnesium 200 mg tablet 400 mg PO QHS vitamin 09/13/22 History famotidine 20 mg tablet mg PO DAILY 03/19/23 07/10/24 Hist ory cetirizine 10 mg capsule (Zyrtec) 10 mg PO DAILY PRN 08/02/2307/10 History d-mannose 500 mg capsule (AZO mg PO 08/02/23 07/10/24 History D-Mannose) selenium 200 mcg capsule 200 mcg PO DAILY 08/02/23 07/10/24 History lisinopril 20 mg tablet 20 mg PO DAILY bp #90 tabs 4 07/10/24 Rx riboflavin (vitamin B2) 100 mg 100 mg PO QDAY 11/04/23 07/10/24 H istory tablet simvastatin 20 mg tablet 20 mg PO QHS hld #90 tabs 11/04/23 07/10/24 Rx estradiol 0.01% (0.1 mg/gram) 1 g vaginal 2XW hormone #42.5 gram s 12/17/23 07/10/24 Rx vaginal cream (Estrace) montelukast 10 mg tablet 10 mg PO DAILY asthma #90 tabs 11/0507/10/24 Rx buspirone 15 mg tablet 15 mg PO TID 30 days #90 tabs 02/1107/10/24 Rx naltrexone 50 mg tablet 50 mg PO DAILY #30 tabs 04/06/24 0 07/10/24 Rx escitalopram oxalate 10 mg tablet 10 mg PO DAILY depression #30 tab s 04/09/24 07/10/24 Rx lamotrigine 200 mg tablet 200 mg PO QHS seizure 30 days #30 04/09/24 07/10/24 Rx tabs arm brace (Wrist Brace) #1 ea 04/10/24 07/10/24 Rx cyclobenzaprine 10 mg tablet 5 mg (1/2 x 10 mg) PO HS PRN 04/1007/10/24 Rx muscle spasm #30 tabs ferrous sulfate 325 mg (65 mg 325 mg PO .1x/wk 04/10/24 07/10/24 History iron) tablet (Feosol) prazosin 2 mg capsule 2 mg PO QHS nightmares #30 caps 07/10/24 Rx doxepin 10 mg capsule 10 mg PO QHS 30 days #30 caps 05/1307/10/24 Rx omeprazole 40 mg capsule,delayed 40 mg PO BID stomach #180 caps 07/10/24 Rx release benzonatate 200 mg capsule 200 mg PO TID cough #30 caps 06/0307/10/24 Rx fluticasone propionate 50 1 spray intranasal QDAY #16 grams 06/05/24 07/10/24 Rx mcg/actuation nasal spray,suspension (Allergy Relief (fluticasone)) albuterol 90 mcg-budesonide 80 2 inh inhalation ONCE #10.7 grams 06/25/24 07/10/24 Rx mcg/actuation HFA aerosol inhaler (Airsupra) meloxicam 15 mg tablet 15 mg PO QDAY PRN pain #30 tabs 07/10/24 Rx Have you fallen in the past year?: No [facility] Medical History (Updated 07/10/24 @ 14:[address] Lee Garcia MD) Alcohol use disorder De Quervain's tenosynovitis, left Chronic constipation Cough Hot flashes, menopausal CHIQUI (obstructive sleep apnea) Migraine Obesity (BMI 30.0-34.9) Murmur Osteopenia Fatigue Health care maintenance Right otitis media with effusion Alcohol use disorder, severe, in early remission Chronic headache Low libido Dermatitis, contact Sinusitis Bipolar II disorder Overweight (BMI 25.0-29.9) Screening for STD (sexually transmitted disease) Insomnia Flu vaccine need Bee sting reaction Difficulty swallowing solids Hyponatremia Dizziness Vaginal atrophy OAB (overactive bladder) Memory impairment Sciatica Hernia History of stroke IBS (irritable bowel syndrome) Hx of migraine headaches GI problem Emphysema lung COPD (chronic obstructive pulmonary disease) Back pain Anemia Arthritis Seasonal allergies An (more content not included)... Normal [facility] Magnesiumon 07-10-2024 Magnesium [Mass/Vol] 2.2 mg/dL Normal 1.5-2.2 [facility] Comment on above: Performed By: #### L 501.5200, L500.4050 ####[facility] [address] [place], [address] Basic Metabolic Profile (BMP )on 06-04-2024 BUN/CRE 10.2 RATIO Normal 10-[address] [facility] Comment on above: Performed By: #### L 501.4021, L500.2500, L100.0100 ####[facility] [address] [place], [address] Calcium [Mass/Vol] 9.5 mg/dL Normal 7.6-11.0 [facility] Comment on above: Performed By: #### L 501.4021, L500.2500, L100.0100 ####[facility] [address] [place], [address] Chloride [Moles/Vol] 101 mmol/L Normal 98-108 [facility] Comment on above: Performed By: #### L 501.4021, L500.2500, L100.0100 ####[facility] [address] [place], [address] CO2 [Moles/Vol] 22.9 mmol/L Normal 21.0-32.[address] [facility] Comment on above: Performed By: #### L 501.4021, L500.2500, L100.0100 ####[facility] [address] [place], [address] Creatinine [Mass/Vol] 0.70 mg/dL Normal 0.70-1.[address] [facility] Comment on above: Performed By: #### L 501.4021, L500.2500, L100.0100 ####[facility] [address] [place], [address] ECRCL 77.87 ml/min Normal 50-[address] [facility] Comment on above: Performed By: #### L 501.4021, L500.2500, L100.0100 ####[facility] [address] [place], [address] GAP 12 Normal 5-[address] [facility] Comment on above: Performed By: #### L 501.4021, L500.2500, L100.0100 ####[facility] [address] [place], [address] GFR/1.73 sq M.predicted among non-blacks MDRD (S/P/Bld) [Vol rate/Area] 99 mL/min/{1.73_m2} Normal >[address] [facility] Comment on above: Result Comment: mL/m in/1.73m2 CKD-EPI Creatinine Equation (2020) Performed By: #### L 501.4021, L500.2500, L100.0100 ####[facility] [address] [place], [address] Glucose [Mass/Vol] 147 mg/dL High 70-99 [facility] Comment on above: Performed By: #### L 501.4021, L500.2500, L100.0100 ####[facility] [address] [place], [address] Potassium [Moles/Vol] 3.9 mmol/L Normal 3.3-5.[address] [facility] Comment on above: Performed By: #### L 501.4021, L500.2500, L100.0100 ####[facility] [address] [place], [address] Sodium [Moles/Vol] 136 mmol/L Normal 133-145 [facility] Comment on above: Performed By: #### L 501.4021, L500.2500, L100.0100 ####[facility] [address] [place], [address] Urea nitrogen [Mass/Vol] 7 mg/dL Normal 4-[address] [facility] Comment on above: Performed By: #### L 501.4021, L500.2500, L100.0100 ####[facility] [address] [place], [address] CBC W/Diff, Automatedon 05-13 Absolute Lymph 1.49 X10 3/uL Normal 0.83-4.[address] [facility] Comment on above: Performed By: #### L 501.4021, L500.2500, L100.0100 ####[facility] [address] [place], [address] Absolute Neut 3.9 X10 3/uL Normal 2.0-7.[address] [facility] Comment on above: Performed By: #### L 501.4021, L500.2500, L100.0100 ####[facility] [address] [place], [address] Basophils/100 WBC (Bld) 0.0 % Normal 0-[address] [facility] Comment on above: Performed By: #### L 501.4021, L500.2500, L100.0100 ####[facility] [address] [place], [address] Eosinophils/100 WBC (Bld) 3.3 % Normal 0-[address] [facility] Comment on above: Performed By: #### L 501.4021, L500.2500, L100.0100 ####[facility] [address] [place], [address] Erythrocyte distribution width (RBC) [Ratio] 12.7 % Normal 11.6-14.[address] [facility] Comment on above: Performed By: #### L 501.4021, L500.2500, L100.0100 ####[facility] [address] [place], [address] Hematocrit (Bld) [Volume fraction] 34.9 % Low 37-[address] [facility] Comment on above: Performed By: #### L 501.4021, L500.2500, L100.0100 ####[facility] [address] [place], [address] Hemoglobin (Bld) [Mass/Vol] 11.7 g/dL Low 12.0-15.[address] [facility] Comment on above: Performed By: #### L 501.4021, L500.2500, L100.0100 ####[facility] [address] [place], [address] IG% 0.300 Normal 0.0-0.[address] [facility] Comment on above: Result Comment: IG% - Immature Granulocytes (promyelocytes, myelocytes and metamyelocytes) > 1% indicates that a LEFT SHIFT is Present. Performed By: #### L 501.4021, L500.2500, L100.0100 ####[facility] [address] [place], [address] Lymphocytes/100 WBC (Bld) 24.3 % Normal 19-[address] [facility] Comment on above: Performed By: #### L 501.4021, L500.2500, L100.0100 ####[facility] [address] [place], [address] MCH (RBC) [Entitic mass] 31.7 pg Normal 27.0-32.[address] [facility] Comment on above: Performed By: #### L 501.4021, L500.2500, L100.0100 ####[facility] [address] [place], [address] MCHC (RBC) [Mass/Vol] 33.5 g/dL Normal 32-[address] [facility] Comment on above: Performed By: #### L 501.4021, L500.2500, L100.0100 ####[facility] [address] [place], [address] MCV (RBC) [Entitic vol] 94.6 fL Normal 81-[address] [facility] Comment on above: Performed By: #### L 501.4021, L500.2500, L100.0100 ####[facility] [address] [place], [address] Monocytes/100 WBC (Bld) 8.3 % Normal 0-[address] [facility] Comment on above: Performed By: #### L 501.4021, L500.2500, L100.0100 ####[facility] [address] [place], [address] Neutrophils/100 WBC (Bld) 63.8 % Normal 47-[address] [facility] Comment on above: Performed By: #### L 501.4021, L500.2500, L100.0100 ####[facility] [address] [place], [address] Nucleated RBC (Bld) [#/Vol] 0 10*3/uL Normal 0-[address] [facility] Comment on above: Performed By: #### L 501.4021, L500.2500, L100.0100 ####[facility] [address] [place], [address] Platelet mean volume (Bld) [Entitic vol] 9.5 fL Normal 6.2-12.[address] [facility] Comment on above: Performed By: #### L 501.4021, L500.2500, L100.0100 ####[facility] [address] [place], [address] Platelets (Bld) [#/Vol] 304 10*3/uL Normal 150-[address] [facility] Comment on above: Performed By: #### L 501.4021, L500.2500, L100.0100 ####[facility] [address] [place], [address] RBC (Bld) [#/Vol] 3.69 10*6/uL Low 4.2-5.4 [facility] Comment on above: Performed By: #### L 501.4021, L500.2500, L100.0100 ####[facility] [address] [place], [address] RDW SD 43.7 fl Normal 35.1-43.[address] [facility] Comment on above: Performed By: #### L 501.4021, L500.2500, L100.0100 ####[facility] [address] [place], [address] WBC (Bld) [#/Vol] 6.1 10*3/uL Normal 4.4-11.0 [facility] Comment on above: Performed By: #### L 501.4021, L500.2500, L100.0100 ####[facility] [address] [place], [address] Chest PA and Lateralon 06-04 Chest PA and Lateral [facility] [address] [place] [address] Chest PA and Lateral MR#: [id number] Acct: [id number] Name: CONNIE GREENBERG Rep #: [id number] : 1960 F 63 From: Bruce herrera MD PCP: Dr. Lee Garcia MD Status: [facility] ER Study: Chest PA and Lateral Date of Exam: 06/04/24 Exam# [id number] Ordering Dr: Adore Gonzalez DO PROCEDURE: CHEST PA AND LATERAL 06/04/2024 REASON FOR EXAM: CHEST PAIN TECHNIQUE: Frontal and lateral views of the chest. COMPARISON: None FINDINGS: Hardware: EKG electrodes are seen. Heart: The heart size is normal. Mediastinum: The mediastinal contour is unremarkable. Lungs: The lungs are clear. Bones: The bones are unremarkable. RAD/Chest PA and Lateral IMPRESSION: NO ACUTE FINDINGS. Reading Location: [place] [address] CC: Dr. Adore Gonzalez DO; Dr. Lee Garcia MD [employer] Manager: Signed Normal [facility] D-Dimer Quantitative (DVT/PE )on 06-04-2024 D-DIMER QUANT 0.58 FEU/ug/m Invalid Interpretation Code 0.27-0.[address] [facility] Comment on above: Order Comment: CRITI LEXIS VALUE CALLED TO naye alva 06/04/24 Brian9 Mily Whyte. RESULTS READ BACK BY same. Result Comment: D-Di sarah ELEVATED (>0.49): Additional studies and clinical assessments are indicated to conclude diagnosis of: Deep Vein Thrombosis (DVT) or Pulmonary Embolism (PE) Performed By: #### L 300.8000 #### [facility] [address] [facility] [place], [address] Emergency Department Summary on 06-04-2024 Emergency Department Summary [facility] Medical Records Department [address] [place] [address] Emergency Department Summary 06/04/24 MR#: [id number] Acct: [id number] Name: CONNIE GREENBERG Rep #: [id number] : 1960 63 From: Adore Gonzalez DO PCP: Dr. Lee Garcia MD Status:REG ER Location: ED HPI History of Present Illness Chief Complaint: Chest Pain Informant: patient Narrative Narrative: Patient is a 63-year-old female with history of headaches, bipolar disorder, COPD, GERD, anxiety and depression and recent bronchitis (3 weeks ago (presenting with chest pain. Patient states she started having chest pain 2 days ago. She has intermittent more in the front of her chest. She thought maybe was related to her bronchitis as her breathing felt tight. She notes she still had a lingering cough and she has had some mucus production has been clear. She did she was treated with a 5-day course of Augmentin and prednisone. She went to her doctor's office yesterday and they prescribed her a new inhaler. Last night and then today she started have increased pain worth with deep breathing. She describes the pain as sharp and it bent her over. She feels short of breath. She is not sure if she was wheezing. She 90 leg swelling. Is on any blood thinners but does take an 81 mg aspirin daily. Denies any DVT or PE history. States that she regularly takes Tums but this does not help her pain. Today the pain started into her left shoulder and back which is what prompted her to come to the emergency room. No rash reported. No associated numbness or tingling. Notes that when she has the pain she feels clammy, nauseous and lightheaded. No other complaints or concerns reported at this time. [facility] Medical History De Quervain's tenosynovitis, left Chronic constipation Cough Hot flashes, menopausal CHIQUI (obstructive sleep apnea) Migraine Obesity (BMI 30.0-34.9) Murmur Osteopenia Fatigue Health care maintenance Right otitis media with effusion Alcohol use disorder, severe, in early remission Chronic headache Low libido Dermatitis, contact Sinusitis Bipolar II disorder Overweight (BMI 25.0-29.9) Screening for STD (sexually transmitted disease) Insomnia Flu vaccine need Bee sting reaction Difficulty swallowing solids Hyponatremia Dizziness Vaginal atrophy OAB (overactive bladder) Memory impairment Sciatica Hernia History of stroke IBS (irritable bowel syndrome) Hx of migraine headaches GI problem Emphysema lung COPD (chronic obstructive pulmonary disease) Back pain Anemia Arthritis Seasonal allergies Anxiety right scapular mass Lumbar radiculopathy Asthma Bipolar depression GERD (gastroesophageal reflux disease) Orthostatic hypotension Pericardial effusion (noninflammatory) Hypertension Hyperlipidemia Chronic pain Fibromyalgia CVA (cerebral vascular accident) Home Medications ???Medication ???Instructions ???Recorded ???Last Taken ???Type albuterol sulfate 90 mcg/actuation 2 puff inhalation Q4H PRN PRN So b 12/26/16 Unknown History aerosol inhaler /Or Wheezing cholecalciferol (vitamin D3) 125 5,000 unit PO DAILY vitamin Unknown History mcg (5,000 unit) disintegrating tablet cyanocobalamin (vitamin B-12) 500 500 mcg PO DAILY vitamin 12/26/16 Unknown History mcg tablet aspirin 81 mg chewable tablet 81 mg PO DAILY@0800 blood thinner 12/27/16 Unknown Rx giutiexp-putv-tpszt acid 240 1 tab PO DAILY vitamin 03/07/20 Un known History mcg-vit K 120 dxb-nubgni-wyym 293 tablet (Alive Women's 50 Plus (fruit-veg blend)) pyridoxine (vitamin B6) 100 mg 100 mg PO DAILY vitamin 04/01/20 U nknown History tablet magnesium 200 mg tablet 400 mg PO QHS vitamin 09/13/22 Unk nown History famotidine 20 mg tablet mg PO DAILY 03/19/23 Unknown Histo ry cetirizine 10 mg capsule (Zyrtec) 10 mg PO DAILY PRN 08/02/23 Unkno wn History d-mannose 500 mg capsule (AZO mg PO 08/02/23 Unknown History D-Mannose) selenium 200 mcg capsule 200 mcg PO DAILY 08/02/23 Unknown History lisinopril 20 mg tablet 20 mg PO DAILY bp #90 tabs 4 Unknown Rx riboflavin (vitamin B2) 100 mg 100 mg PO QDAY 11/04/23 Unknown Hi story tablet simvastatin 20 mg tablet 20 mg PO QHS hld #90 tabs 11/04/23 Unknown Rx fluticasone propionate 50 1 spray intranasal QDAY #16 grams 12/09/23 Unknown Rx mcg/actuation nasal spray,suspension (Allergy Relief (fluticasone)) estradiol 0.01% (0.1 mg/gram) 1 g vaginal 2XW hormone #42.5 gram s 12/17/23 Unknown Rx vaginal cream (Estrace) montelukast 10 mg tablet 10 mg PO DAILY asthma #90 tabs 11/05 Unknown Rx buspirone 15 mg tablet 15 mg PO TID 30 days #90 tabs 02/11 08/05 Unknown Rx naltrexone 50 mg tablet 50 mg PO (more content not included)... Normal [facility] L499.0042on 06-04-2024 Trop T High Sen < 6 Normal <=[address] [facility] Comment on above: Performed By: #### L 499.0042 #### [facility] [place], [address] L499.0043on 06-04-2024 Trop T High Sen Normal <=[address] [facility] Comment on above: Result Comment: Canc elled via OM: Order cancelled - Patient discharged Performed By: #### L 499.0043 #### [facility] [address] [place], [address] L501.4021on 06-04-2024 Trop T High Sen < 6 Normal <=[address] [facility] Comment on above: Performed By: #### L 501.4021, L500.2500, L100.0100 ####[facility] [address] [place], [address] Lipaseon 06-04-2024 Lipase [Catalytic activity/Vol] 32 U/L Normal 13-[address] [facility] Comment on above: Result Comment: Judi urias note: LIPASE revised reference range effective 22. New Lipase methodology. Expected to produce lower values than the previous assay method. NEW Reference Range: 13 - 75 U/L Performed By: #### L 501.2450, L500.3400 #### [facility] [address] [place], [address] Liver Profileon 06-04-2024 Albumin [Mass/Vol] 4.1 g/dL Normal 3.4-4.8 [facility] Comment on above: Performed By: #### L 501.2450, L500.3400 #### [facility] [address] [place], [address] ALK PHOS 103 U/L Normal 35-[address] [facility] Comment on above: Performed By: #### L 501.2450, L500.3400 #### [facility] [address] [place], [address] ALT [Catalytic activity/Vol] 16 U/L Normal <=[address] [facility] Comment on above: Performed By: #### L 501.2450, L500.3400 #### [facility] [address] [place], [address] AST [Catalytic activity/Vol] 18 U/L Normal <=[address] [facility] Comment on above: Performed By: #### L 501.2450, L500.3400 #### [facility] [address] [place], [address] Bilirubin [Mass/Vol] 0.47 mg/dL Normal 0.00-1.30 [facility] Comment on above: Performed By: #### L 501.2450, L500.3400 #### [facility] [address] [place], [address] Bilirubin.direct [Mass/Vol] 0.21 mg/dL Normal 0.00-0.[address] [facility] Comment on above: Performed By: #### L 501.2450, L500.3400 #### [facility] [address] [place], [address] Globulin (S) [Mass/Vol] 2.7 g/dL Normal 2.2-4.[address] [facility] Comment on above: Performed By: #### L 501.2450, L500.3400 #### [facility] [address] [place], [address] T PROT 6.8 g/dL Normal 5.9-8.[address] [facility] Comment on above: Performed By: #### L 501.2450, L500.3400 #### [facility] [address] [place], [place], [address] Internal Medicine Office Vis vlad 06-03-2024 Internal Medicine Office Visit [facility] [address] [place] [address] OFFICE VISIT Date of Service: 06/03/24 MR#: [id number] Acct: [id number] Name: GREENBERGCONNIE Rep #: [id number] : 1960 Provider: ZHANNA Richard Age/Sex: 63/F Location: [facility] [place] Status: Signed Intake Vital Signs 04/10/24 10:26 06/03/24 08:35 Height 5 ft 2 in 5 ft 2 in Weight: 164 lb 162 lb BMI 29.9 29.6 BP 124/80 H 134/72 H Blood Pressure Location Lt brachial Lt brachial Position Sitting Sitting Respiration 18 18 Pulse 89 93 Pulse Source Monitor Monitor Temp 98.2 F 97.8 F Temp Source Temporal Temporal Pulse Oximetry (%) 98 97 Oxygen Delivery Method room air room air Intake Visit Reasons: acute - bronchitis Chief Complaint: bronchitis 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: No Accompanied by: Self Is patient in pain?: No Allergies bee venom protein (honey bee) Allergy (Mild, Verified 06/03/24 08:26) SWELLING/ SOB Medications ???Medication ???Instructions ???Recorded ???Confirmed ???Type albuterol sulfate 90 mcg/actuation 2 puff inhalation Q4H PRN PRN So b 12/26/16 06/03/24 History aerosol inhaler /Or Wheezing cholecalciferol (vitamin D3) 125 5,000 unit PO DAILY vitamin 06/03/24 History mcg (5,000 unit) disintegrating tablet cyanocobalamin (vitamin B-12) 500 500 mcg PO DAILY vitamin 12/26/16 06/03/24 History mcg tablet aspirin 81 mg chewable tablet 81 mg PO DAILY@0800 blood thinner 12/27/16 06/03/24 Rx dvlccsgo-tiha-tgusn acid 240 1 tab PO DAILY vitamin 03/07/20 History mcg-vit K 120 tld-nilwwv-ecfa 293 tablet (Alive Women's 50 Plus (fruit-veg blend)) pyridoxine (vitamin B6) 100 mg 100 mg PO DAILY vitamin 04/01/20 0 06/03/24 History tablet magnesium 200 mg tablet 400 mg PO QHS vitamin 09/13/22 History famotidine 20 mg tablet mg PO DAILY 03/19/23 06/03/24 Hist ory cetirizine 10 mg capsule (Zyrtec) 10 mg PO DAILY PRN 08/02/2306/03 History d-mannose 500 mg capsule (AZO mg PO 08/02/23 06/03/24 History D-Mannose) selenium 200 mcg capsule 200 mcg PO DAILY 08/02/23 06/03/24 History lisinopril 20 mg tablet 20 mg PO DAILY bp #90 tabs 4 06/03/24 Rx riboflavin (vitamin B2) 100 mg 100 mg PO QDAY 11/04/23 06/03/24 H istory tablet simvastatin 20 mg tablet 20 mg PO QHS hld #90 tabs 11/04/23 06/03/24 Rx fluticasone propionate 50 1 spray intranasal QDAY #16 grams 12/09/23 06/03/24 Rx mcg/actuation nasal spray,suspension (Allergy Relief (fluticasone)) estradiol 0.01% (0.1 mg/gram) 1 g vaginal 2XW hormone #42.5 gram s 12/17/23 06/03/24 Rx vaginal cream (Estrace) montelukast 10 mg tablet 10 mg PO DAILY asthma #90 tabs 11/0506/03/24 Rx buspirone 15 mg tablet 15 mg PO TID 30 days #90 tabs 02/1106/03/24 Rx naltrexone 50 mg tablet 50 mg PO DAILY #30 tabs 04/06/24 0 06/03/24 Rx escitalopram oxalate 10 mg tablet 10 mg PO DAILY depression #30 tab s 04/09/24 06/03/24 Rx lamotrigine 200 mg tablet 200 mg PO QHS seizure 30 days #30 04/09/24 06/03/24 Rx tabs arm brace (Wrist Brace) #1 ea 04/10/24 06/03/24 Rx cyclobenzaprine 10 mg tablet 5 mg (1/2 x 10 mg) PO HS PRN 04/1006/03/24 Rx muscle spasm #30 tabs ferrous sulfate 325 mg (65 mg 325 mg PO .1x/wk 04/10/24 06/03/24 History iron) tablet (Feosol) meloxicam 15 mg tablet 15 mg PO QDAY PRN pain #60 tabs 06/03/24 Rx prazosin 2 mg capsule 2 mg PO QHS nightmares #30 caps 06/03/24 Rx doxepin 10 mg capsule 10 mg PO QHS 30 days #30 caps 05/1306/03/24 Rx omeprazole 40 mg capsule,delayed 40 mg PO BID stomach #180 caps 06/03/24 Rx release albuterol 90 mcg-budesonide 80 2 inh inhalation ONCE #10.7 grams 06/03/24 06/03/24 Rx mcg/actuation HFA aerosol inhaler (Airsupra) benzonatate 200 mg capsule 200 mg PO TID cough #30 caps 06/0306/03/24 Rx fluticasone furoate 100 inhalation QDAY 06/03/24 06/03/24 History mcg-vilanterol 25 mcg/dose inhalation powder (Breo Ellipta) Have you fallen in the past year?: No Nurse's Note: PT REPORTS SHE IS USING HER BUDESONIDE INHALER AT NIGHT AND HER BREO INHALER IN THE AM INTERACTION [facility]GED IN [facility] Medical History De Quervain's tenosynovitis, left Chronic constipation Cough Hot flashes, menopausal CHIQUI (obstructive sleep apnea) Migraine Obesity (BMI 30.0-34.9) Murmur Osteopenia Fatigue Health care maintenance Right otitis media with effusion Alcohol use disorder, severe, in early remission Chronic headache Low libido Dermatitis, contact Sinusitis Bipolar II disorder Overweight (BMI 25.0-29.9) Screening for STD (sexually transmitted disease) Insomnia Flu vaccine need Bee sting (more content not included)... [facility] ([facility] ) CNONIE GREENBERG ([id number]) 1960 F Date Time Provider Department 05/19/24 6:45 PM EBONI WHITE ALFRED During your visit today, we recorded the following information about you: Temperature Pulse Respiration Blood pressure 98 degrees 82/minute 16/minute 136/80 Weight 72.6 kg Eboni White, PRACTICE MANAGER.CARTOGRAPHIC DESIGNER 05/19/2024 7:45 PM Signed [facility] Subjective Connie Greenberg is a 63 year old female. Patient presents with: Sinus Problem: drainage, cough, fever x 2 weeks Sinus Problem Associated symptoms include chest pain (with cough), congestion, coughing and a fever. Pertinent negatives include no sore throat. Connie Greenberg is a 63 year old female who presents with a cough, chest congestion, sinus congestion and drainage for the past 2 weeks. She states she has had a fever at home for the past 3 days-around 100 degrees F. She is coughing up a lot of phlegm which is green in color. She has taken OTC mucinex cold/sinus. She has some pain in the center of her chest when she coughs and occasionally feels short of breath. Review of Systems Constitutional: Positive for fever. HENT: Positive for congestion and ear pain. Negative for sore throat. Respiratory: Positive for cough and shortness of breath. Cardiovascular: Positive for chest pain (with cough). Musculoskeletal: Negative. Objective BP 136/80 Pulse 82 Temp 36.7 ?C (98 ?F) Resp 16 Wt 72.6 kg (160 lb 0.9 oz) SpO2 97% BMI 29.27 kg/m? PAST MEDICAL HISTORY Diagnosis Date - Anxiety and depression - Arthritis - Asthma - Bipolar disorder (HCC) - CVA (cerebral vascular accident) (HCC) - Diarrhea, functional - GERD (gastroesophageal reflux disease) - Hiatal hernia - High cholesterol - Hypertension - Impaired cognition - Irritable bowel syndrome with both constipation and diarrhea - Sleep apnea - TIA (transient ischemic attack) 2016 PAST SURGICAL HISTORY Procedure Laterality Date - BX OF BREAST; INCISIONAL Left 1992 benign - ESOPHAGEAL MANOMETRY 03/10/2021 30% weak AND 30% ineffective swallows; Dr. Gonzales - FOOT SURGERY HX Left 11/23/2020 mid-foot arthrodesis, great toe tendon release and bunionectomy; Dr. Maravilla - HYSTERECTOMY HX ALLERGIES Bee Venom Protein (Honey Bee) MEDICATIONS - benzonatate (TESSALON PERLES) 100 mg capsule Take 1 capsule by mouth three times a day as needed for cough. (Patient not taking: Reported on 03/15/2024) - escitalopram oxalate (LEXAPRO) 10 mg tablet escitalopram 10 mg tablet TAKE 1 TABLET BY MOUTH DAILY - OTC PRODUCT Prevajen oral Extra strength - ADVAIR DISKUS 250-50 mcg/dose inhaler INHALE one INHALATION TWICE DAILY - nystatin (MYCOSTATIN) 100,000 unit/mL suspension Take 5 mL by mouth four times daily. 1tsp swish in mouth for several minutes, then swallow (or expectorate) 4 times daily until gone. (Patient not taking: Reported on 10/21/2023) - oxyCODONE-acetaminoph en (PERCOCET) 5-325 mg tablet Take 1-2 tablets by mouth every 4 hours as needed. (Patient not taking: Reported on 04/27/2023) - gabapentin (NEURONTIN) 800 mg tablet Take 800 mg by mouth three times daily. (Patient not taking: Reported on 10/21/2023) - lamoTRIgine (LAMICTAL) 150 mg tablet Take 150 mg by mouth twice daily. - lisinopril (ZESTRIL, PRINIVIL) 10 mg tablet Take 10 mg by mouth once daily. - traZODone (DESYREL) 50 mg tablet Take 100 mg by mouth daily at bedtime. - melatonin 10 mg tab Take by mouth daily at bedtime. 10-20 mg - OLANZapine (ZYPREXA) 10 mg tablet Take 10 mg by mouth daily at bedtime. - ARIPiprazole (ABILIFY) 2 mg tablet Take 2 mg by mouth daily at bedtime. (Patient not taking: Reported on 04/06/2022) - carBAMazepine ER (CARBATROL) 200 mg 12 hr capsule Take 400 mg by mouth daily at bedtime. (Patient not taking: Reported on 04/06/2022) - hydrOXYzine pamoate (VISTARIL) 50 mg capsule Take 50 mg by mouth three times daily as needed. (Patient not taking: Reported on 10/21/2023) - lidocaine (LIDOCARE TOPICAL) Apply to affected area as needed. - eluxadoline (VIBERZI) 100 mg tab Take 50 mg by mouth as needed (diarrhea). (Patient not taking: Reported on 10/21/2023) - ondansetron (ZOFRAN) 4 mg tablet Take by mouth every 8 hours as needed for nausea/vomiting. (Patient not taking: Reported on 10/21/2023) - cyclobenzaprine (FLEXERIL) 10 mg tablet Take by mouth as needed. - Apple Cider Vinegar 500 mg tab Take by mouth once daily. (Patient not taking: Reported on 10/21/2023) - fluticasone propion-salmeterol (AIRDUO DIGIHALER) 113 mcg-14 mcg/actuation digihaler Inhale 1 Inhalation as instructed twice daily. - calcium carbonate (TUMS ORAL) Take by mouth as needed. - naproxen sodium 220 mg cap Take by mouth as needed (pain). 1-2 tablets - acetaminophen 650 mg CR tablet Take 1,300 mg by mouth every 8 hours as needed for pain. - COQ10, UBIQUINOL, ORAL Take 200 mg by (more content not included)... Normal [facility] XR CHEST 2V FRONTAL/LATon XR CHEST 2V FRONTAL/LAT * * *Final Report* * * DATE OF EXAM: May 19 2024 7:16PM WOX [id number] - XR CHEST 2V FRONTAL/LAT / PROCEDURE REASON: Subacute cough * * * * Physician Interpretation * * * * EXAMINATION: CHEST RADIOGRAPH (2 VIEW FRONTAL and LATERAL) CLINICAL HISTORY: Subacute cough MQ: XC2_6 EXAM DATE/TIME: 05/19/2024 7:16 PM COMPARISON: Chest x-ray of 04/05/2017 RESULT: Lines, tubes, and devices: None. Lungs and pleura: No consolidation. No lung mass. No pleural effusion. No pneumothorax. Cardiomediastinal silhouette: Normal cardiomediastinal silhouette. Bones and soft tissues: Unremarkable. IMPRESSION: No acute radiographic abnormality. [employer] Manager: GREG Transcribe Date/Time: May 19 2024 7:18P Dictated by : WHIT RON MD This examination was interpreted and the report reviewed and electronically signed by: WHIT RON MD on May 19 2024 7:19PM EST [id number] Normal [facility] XR Chest PA and Lateralon IMPRESSION: No acute radiographic abnormality. [employer] Manager: GREG Transcribe Date/Time: May 19 2024 7:18P Dictated by : WHIT RON MD This examination was interpreted and the report reviewed and electronically signed by: WHIT RON MD on May 19 2024 7:19PM EST DIVISION OF RADIOLOGY * * *Final Report* * * DATE OF EXAM: May 19 2024 7:16PM WOX [id number] - XR CHEST 2V FRONTAL/LAT / PROCEDURE REASON: Subacute cough * * * * Physician Interpretation * * * * EXAMINATION: CHEST RADIOGRAPH (2 VIEW FRONTAL & LATERAL) CLINICAL HISTORY: Subacute cough MQ: XC2_6 EXAM DATE/TIME: 05/19/2024 7:16 PM COMPARISON: Chest x-ray of 04/05/2017 RESULT: Lines, tubes, and devices: None. Lungs and pleura: No consolidation. No lung mass. No pleural effusion. No pneumothorax. Cardiomediastinal silhouette: Normal cardiomediastinal silhouette. Bones and soft tissues: Unremarkable. DIVISION OF RADIOLOGY Provider, [facility] - 05/19/2024 * * *Final Report* * * DATE OF EXAM: May 19 2024 7:16PM WOX [id number] - XR CHEST 2V FRONTAL/LAT / PROCEDURE REASON: Subacute cough * * * * Physician Interpretation * * * * EXAMINATION: CHEST RADIOGRAPH (2 VIEW FRONTAL & LATERAL) CLINICAL HISTORY: Subacute cough MQ: XC2_6 EXAM DATE/TIME: 05/19/2024 7:16 PM COMPARISON: Chest x-ray of 04/05/2017 RESULT: Lines, tubes, and devices: None. Lungs and pleura: No consolidation. No lung mass. No pleural effusion. No pneumothorax. Cardiomediastinal silhouette: Normal cardiomediastinal silhouette. Bones and soft tissues: Unremarkable. IMPRESSION IMPRESSION: No acute radiographic abnormality. [employer] Manager: PSCB Transcribe Date/Time: May 19 2024 7:18P Dictated by : WHIT RON MD This examination was interpreted and the report reviewed and electronically signed by: WHIT RON MD on May 19 2024 7:19PM EST [facility] Radiology Study observation (narrative) [facility] XR Chest PA and LateralOrder ed By: [facility] Provider on 05-19-2024 [facility] CBC W/Diff, Automatedon 02-2 Absolute Lymph 1.55 X10 3/uL Normal 0.83-4.[address] [facility] Comment on above: Performed By: #### L 500.4050, L500.4100, L100.0100 ####[facility] [address] [place], [address] Absolute Neut 2.2 X10 3/uL Normal 2.0-7.[address] [facility] Comment on above: Performed By: #### L 500.4050, L500.4100, L100.0100 ####[facility] [address] [place], [address] Basophils/100 WBC (Bld) 0.2 % Normal 0-[address] [facility] Comment on above: Performed By: #### L 500.4050, L500.4100, L100.0100 ####[facility] [address] [place], [address] Eosinophils/100 WBC (Bld) 5.9 % High 0-[address] [facility] Comment on above: Performed By: #### L 500.4050, L500.4100, L100.0100 ####[facility] [address] [place], [address] Erythrocyte distribution width (RBC) [Ratio] 12.4 % Normal 11.6-14.[address] [facility] Comment on above: Performed By: #### L 500.4050, L500.4100, L100.0100 ####[facility] [address] [place], [address] Hematocrit (Bld) [Volume fraction] 35.0 % Low 37-[address] [facility] Comment on above: Performed By: #### L 500.4050, L500.4100, L100.0100 ####[facility] [address] [place], [address] Hemoglobin (Bld) [Mass/Vol] 11.8 g/dL Low 12.0-15.[address] [facility] Comment on above: Performed By: #### L 500.4050, L500.4100, L100.0100 ####[facility] [address] [place], [address] IG% 0.200 Normal 0.0-0.[address] [facility] Comment on above: Result Comment: IG% - Immature Granulocytes (promyelocytes, myelocytes and metamyelocytes) > 1% indicates that a LEFT SHIFT is Present. Performed By: #### L 500.4050, L500.4100, L100.0100 ####[facility] [address] [place], [address] Lymphocytes/100 WBC (Bld) 35.0 % Normal 19-[address] [facility] Comment on above: Performed By: #### L 500.4050, L500.4100, L100.0100 ####[facility] [address] [place], [address] MCH (RBC) [Entitic mass] 32.2 pg High 27.0-32.[address] [facility] Comment on above: Performed By: #### L 500.4050, L500.4100, L100.0100 ####[facility] [address] [place], [address] MCHC (RBC) [Mass/Vol] 33.7 g/dL Normal 32-[address] [facility] Comment on above: Performed By: #### L 500.4050, L500.4100, L100.0100 ####[facility] [address] [place], [address] MCV (RBC) [Entitic vol] 95.6 fL Normal 81-[address] [facility] Comment on above: Performed By: #### L 500.4050, L500.4100, L100.0100 ####[facility] [address] [place], [address] Monocytes/100 WBC (Bld) 8.6 % Normal 0-[address] [facility] Comment on above: Performed By: #### L 500.4050, L500.4100, L100.0100 ####[facility] [address] [place], [address] Neutrophils/100 WBC (Bld) 50.1 % Normal 47-[address] [facility] Comment on above: Performed By: #### L 500.4050, L500.4100, L100.0100 ####[facility] [address] [place], [address] Nucleated RBC (Bld) [#/Vol] 0 10*3/uL Normal 0-[address] [facility] Comment on above: Performed By: #### L 500.4050, L500.4100, L100.0100 ####[facility] [address] [place], [address] Platelet mean volume (Bld) [Entitic vol] 9.7 fL Normal 6.2-12.[address] [facility] Comment on above: Performed By: #### L 500.4050, L500.4100, L100.0100 ####[facility] [address] [place], [address] Platelets (Bld) [#/Vol] 266 10*3/uL Normal 150-[address] [facility] Comment on above: Performed By: #### L 500.4050, L500.4100, L100.0100 ####[facility] [address] [place], [address] RBC (Bld) [#/Vol] 3.66 10*6/uL Low 4.2-5.4 [facility] Comment on above: Performed By: #### L 500.4050, L500.4100, L100.0100 ####[facility] [address] [place], [address] RDW SD 43.8 fl Normal 35.1-43.[address] [facility] Comment on above: Performed By: #### L 500.4050, L500.4100, L100.0100 ####[facility] [address] [place], [address] WBC (Bld) [#/Vol] 4.4 10*3/uL Normal 4.4-11.0 [facility] Comment on above: Performed By: #### L 500.4050, L500.4100, L100.0100 ####[facility] [address] [place], [address] Comprehensive Metabolic Prof wyon 04-10-2024 Albumin [Mass/Vol] 4.2 g/dL Normal 3.4-4.8 [facility] Comment on above: Performed By: #### L 500.4050, L500.4100, L100.0100 ####[facility] [address] [place], [address] Albumin/Globulin [Mass ratio] 1.7 {ratio} Normal 0.9-2.[address] [facility] Comment on above: Performed By: #### L 500.4050, L500.4100, L100.0100 ####[facility] [address] [place], [address] ALK PHOS 97 U/L Normal 35-[address] [facility] Comment on above: Performed By: #### L 500.4050, L500.4100, L100.0100 ####[facility] [address] [place], [address] ALT [Catalytic activity/Vol] 27 U/L Normal <=[address] [facility] Comment on above: Performed By: #### L 500.4050, L500.4100, L100.0100 ####[facility] [address] [place], [address] Anion gap [Moles/Vol] 10 mmol/L Normal 5-[address] [facility] Comment on above: Performed By: #### L 500.4050, L500.4100, L100.0100 ####[facility] [address] [place], [address] AST [Catalytic activity/Vol] 32 U/L Normal <=[address] [facility] Comment on above: Performed By: #### L 500.4050, L500.4100, L100.0100 ####[facility] [address] [place], [address] Bilirubin [Mass/Vol] 0.31 mg/dL Normal 0.00-1.30 [facility] Comment on above: Performed By: #### L 500.4050, L500.4100, L100.0100 ####[facility] [address] [place], [address] BUN/CRE 12.3 RATIO Normal 10-[address] [facility] Comment on above: Performed By: #### L 500.4050, L500.4100, L100.0100 ####[facility] [address] [place], [address] Calcium [Mass/Vol] 9.3 mg/dL Normal 7.6-11.0 [facility] Comment on above: Performed By: #### L 500.4050, L500.4100, L100.0100 ####[facility] [address] [place], [address] Chloride [Moles/Vol] 98 mmol/L Normal 96-108 [facility] Comment on above: Performed By: #### L 500.4050, L500.4100, L100.0100 ####[facility] [address] [place], [address] CO2 [Moles/Vol] 26.9 mmol/L Normal 22.0-29.[address] [facility] Comment on above: Performed By: #### L 500.4050, L500.4100, L100.0100 ####[facility] [address], [address] Creatinine [Mass/Vol] 0.65 mg/dL Low 0.70-1.[address] [facility] Comment on above: Performed By: #### L 500.4050, L500.4100, L100.0100 ####[facility] [address] [place], [address] GFR/1.73 sq M.predicted among non-blacks MDRD (S/P/Bld) [Vol rate/Area] 100 mL/min/{1.73_m2} Normal >[address] [facility] Comment on above: Result Comment: mL/m in/1.73m2 CKD-EPI Creatinine Equation (2020) Performed By: #### L 500.4050, L500.4100, L100.0100 ####[facility] [address], [address] Globulin (S) [Mass/Vol] 2.5 g/dL Normal 2.2-4.[address] [facility] Comment on above: Performed By: #### L 500.4050, L500.4100, L100.0100 ####[facility] [address] [place], [address] Glucose [Mass/Vol] 98 mg/dL Normal 70-99 [facility] Comment on above: Performed By: #### L 500.4050, L500.4100, L100.0100 ####[facility] [address] [place], [address] Potassium [Moles/Vol] 4.5 mmol/L Normal 3.3-5.[address] [facility] Comment on above: Performed By: #### L 500.4050, L500.4100, L100.0100 ####[facility] [address] [place], [address] Sodium [Moles/Vol] 135 mmol/L Normal 133-145 [facility] Comment on above: Performed By: #### L 500.4050, L500.4100, L100.0100 ####[facility] [address] [place], [address] T PROT 6.7 g/dL Normal 5.9-8.[address] [facility] Comment on above: Performed By: #### L 500.4050, L500.4100, L100.0100 ####[facility] [address] [place], [address] Urea nitrogen [Mass/Vol] 8 mg/dL Normal 4-[address] [facility] Comment on above: Performed By: #### L 500.4050, L500.4100, L100.0100 ####[facility] [address] [place], [address] Internal Medicine Office Vis vlad 04-10-2024 Internal Medicine Office Visit [facility] [address] [place] [address] [place] [address] OFFICE VISIT Date of Service: 04/10/24 MR#: [id number] Acct: [id number] Name: CONNIE GREENBERG Rep #: [id number] : 1960 Provider: Dr. Lee gallo MD Age/Sex: 63/F Location: [facility] [place] [facility] Status: Signed Intake Vital Signs 02/10/24 10:32 04/09/24 09:24 04/10/24 10:26 Height 5 ft 2 in 5 ft 2 in 5 ft 2 in Weight: 164 lb BMI 29.9 BP 124/80 H Blood Pressure Location Lt brachial Position Sitting Respiration 18 Pulse 89 Pulse Source Monitor Temp 98.2 F Temp Source Temporal Pulse Oximetry (%) 98 Oxygen Delivery Method room air Intake Visit Reasons: 2 M FU Chief Complaint: 2 M FU Is patient in pain?: No Allergies bee venom protein (honey bee) Allergy (Mild, Verified 04/10/24 10:23) SWELLING/ SOB Medications ???Medication ???Instructions ???Recorded ???Confirmed ???Type albuterol sulfate 90 mcg/actuation 2 puff inhalation Q4H PRN PRN So b 12/26/16 04/10/24 History aerosol inhaler /Or Wheezing cholecalciferol (vitamin D3) 125 5,000 unit PO DAILY vitamin 04/10/24 History mcg (5,000 unit) disintegrating tablet cyanocobalamin (vitamin B-12) 500 500 mcg PO DAILY vitamin 12/26/16 04/10/24 History mcg tablet aspirin 81 mg chewable tablet 81 mg PO DAILY@0800 blood thinner 12/27/16 04/10/24 Rx jgcbegzu-rdwz-hkkdo acid 240 1 tab PO DAILY vitamin 03/07/20 History mcg-vit K 120 csa-mrqmyp-pylw 293 tablet (Alive Women's 50 Plus (fruit-veg blend)) pyridoxine (vitamin B6) 100 mg 100 mg PO DAILY vitamin 04/01/20 0 04/10/24 History tablet magnesium 200 mg tablet 400 mg PO QHS vitamin 09/13/22 History famotidine 20 mg tablet mg PO DAILY 03/19/23 04/10/24 Hist ory fluticasone furoate 100 inhalation 03/19/23 04/10/24 Histo ry mcg-vilanterol 25 mcg/dose inhalation powder (Breo Ellipta) cetirizine 10 mg capsule (Zyrtec) 10 mg PO DAILY PRN 08/02/2304/10 History d-mannose 500 mg capsule (AZO mg PO 08/02/23 04/10/24 History D-Mannose) selenium 200 mcg capsule 200 mcg PO DAILY 08/02/23 04/10/24 History lisinopril 20 mg tablet 20 mg PO DAILY bp #90 tabs 4 04/10/24 Rx omeprazole 40 mg capsule,delayed 40 mg PO BID stomach #180 caps 04/10/24 Rx release riboflavin (vitamin B2) 100 mg 100 mg PO QDAY 11/04/23 04/10/24 H istory tablet simvastatin 20 mg tablet 20 mg PO QHS hld #90 tabs 11/04/23 04/10/24 Rx prazosin 2 mg capsule 2 mg PO QHS nightmares #30 caps 04/10/24 Rx fluticasone propionate 50 1 spray intranasal QDAY #16 grams 12/09/23 04/10/24 Rx mcg/actuation nasal spray,suspension (Allergy Relief (fluticasone)) estradiol 0.01% (0.1 mg/gram) 1 g vaginal 2XW hormone #42.5 gram s 12/17/23 04/10/24 Rx vaginal cream (Estrace) montelukast 10 mg tablet 10 mg PO DAILY asthma #90 tabs 11/0504/10/24 Rx buspirone 15 mg tablet 15 mg PO TID 30 days #90 tabs 02/1104/10/24 Rx naltrexone 50 mg tablet 50 mg PO DAILY #30 tabs 04/06/24 0 04/10/24 Rx doxepin 10 mg capsule 10 mg PO QHS 30 days #30 caps 03/1504/10/24 Rx escitalopram oxalate 10 mg tablet 10 mg PO DAILY depression #30 tab s 04/09/24 04/10/24 Rx lamotrigine 200 mg tablet 200 mg PO QHS seizure 30 days #30 04/09/24 04/10/24 Rx tabs arm brace (Wrist Brace) #1 ea 04/10/24 04/10/24 Rx cyclobenzaprine 10 mg tablet 5 mg (1/2 x 10 mg) PO HS PRN 04/1004/10/24 Rx muscle spasm #30 tabs ferrous sulfate 325 mg (65 mg 325 mg PO .1x/wk 04/10/24 04/10/24 History iron) tablet (Feosol) meloxicam 15 mg tablet 15 mg PO QDAY PRN pain #60 tabs 04/10/24 Rx Have you fallen in the past year?: No [facility] Medical History (Updated 04/10/24 @ 12:[address] Lee Garcia MD) De Quervain's tenosynovitis, left Chronic constipation Cough Hot flashes, menopausal CHIQUI (obstructive sleep apnea) Migraine Obesity (BMI 30.0-34.9) Murmur Osteopenia Fatigue Health care maintenance Right otitis media with effusion Alcohol use disorder, severe, in early remission Chronic headache Low libido Dermatitis, contact Sinusitis Bipolar II disorder Overweight (BMI 25.0-29.9) Screening for STD (sexually transmitted disease) Insomnia Flu vaccine need Bee sting reaction Difficulty swallowing solids Hyponatremia Dizziness Vaginal atrophy OAB (overactive bladder) Memory impairment Sciatica Hernia History of stroke IBS (irritable bowel syndrome) Hx of migraine headaches GI problem Emphysema lung COPD (chronic obstructive pulmonary disease) Back pain Anemia Arthritis Seasonal allergies Anxiety right scapular mass Lumbar radiculopathy Asthma Bipolar depression GERD (gastroesophageal reflux dis (more content not included)... Normal [facility] Lipid Profileon 04-10-2024 CHOL:HDL 2.[address] [facility] Comment on above: Performed By: #### L 500.4050, L500.4100, L100.0100 ####[facility] [address] [place], [address] Cholesterol [Mass/Vol] 138 mg/dL Normal <=[address] [facility] Comment on above: Result Comment: Chol esterol level, Desirable <200 mg/dL Borderline high cholesterol 200-239 mg/dL High cholesterol >=240 mg/dL Recommendations of the NCEP Adult Treatment Panel for the following risk-cutoff thresholds for the [place] population. Performed By: #### L 500.4050, L500.4100, L100.0100 ####[facility] [address] [place], [address] Cholesterol in HDL [Mass/Vol] 63 mg/dL Normal [facility] Comment on above: Result Comment: Sarah onal Cholesterol Education Program (NCEP) guidelines: <40 mg/dL: Low HDL-cholesterol (major risk factor for CHD) >= 60 mg/dL: High HDL-cholesterol (negative risk factor for CHD) HDL-cholesterol is affected by a number of factors, e.g. smoking, exercise, hormones, sex and age. Performed By: #### L 500.4050, L500.4100, L100.0100 ####[facility] [address] [place], [address] Cholesterol in LDL [Mass/Vol] 60 mg/dL Normal [facility] Comment on above: Result Comment: Bord utbmtm=562-164 mg/dL Higher Xadz=271 mg/dL or greater Performed By: #### L 500.4050, L500.4100, L100.0100 ####[facility] [address] [place], [address] Cholesterol in VLDL [Mass/Vol] 15 mg/dL Normal 5-[address] [facility] Comment on above: Performed By: #### L 500.4050, L500.4100, L100.0100 ####[facility] [address] [place], [address] Triglyceride [Mass/Vol] 77 mg/dL Normal [facility] Comment on above: Result Comment: The drugs N-Acetylcysteine and Metamizole may falsely depress this assay. Normal range: <150 mg/dL Borderline High: 150-199 mg/dL High: 200-499 mg/dL Very High: >500 mg/dL Performed By: #### L 500.4050, L500.4100, L100.0100 ####[facility] [address] [place], [address] MR/BMS.BPon 04-09-2024 MR/BMS.BP [place] [address] [facility], [address] [place] [address] OFFICE VISIT Date of Service: 04/09/24 MR#: [id number] Acct: [id number] Name: CONNIE GREENBERG Rep #: [id number] : 1960 Provider: Dr. Osvaldo Fung se, DO Age/Sex: 63/F Location: [facility] [place].[facility] Status: Signed Intake Vital Signs 02/10/24 10:32 04/09/24 09:24 Height 5 ft 2 in 5 ft 2 in Weight: 168 lb BMI 30.7 BP 122/74 H 138/84 H Blood Pressure Location Lt brachial Lt brachial Position Sitting Sitting Respiration 16 16 Pulse 70 86 Pulse Source Monitor Monitor Temp 97.8 F Pulse Oximetry (%) 98 Oxygen Delivery Method room air BP Intake Visit Reasons: follow up Accompanied by: Self Allergies bee venom protein (honey bee) Allergy (Mild, Verified 04/09/24 09:27) SWELLING/ SOB Medications ???Medication ???Instructions ???Recorded ???Confirmed ???Type albuterol sulfate 90 mcg/actuation 2 puff inhalation Q4H PRN PRN So b 12/26/16 04/09/24 History aerosol inhaler /Or Wheezing cholecalciferol (vitamin D3) 125 5,000 unit PO DAILY vitamin 04/09/24 History mcg (5,000 unit) disintegrating tablet cyanocobalamin (vitamin B-12) 500 500 mcg PO DAILY vitamin 12/26/16 04/09/24 History mcg tablet aspirin 81 mg chewable tablet 81 mg PO DAILY@0800 blood thinner 12/27/16 04/09/24 Rx utmyvqlk-djsz-wnavy acid 240 1 tab PO DAILY vitamin 03/07/20 History mcg-vit K 120 fse-nrjktp-blrr 293 tablet (Alive Women's 50 Plus (fruit-veg blend)) pyridoxine (vitamin B6) 100 mg 100 mg PO DAILY vitamin 04/01/20 0 04/09/24 History tablet magnesium 200 mg tablet 400 mg PO QHS vitamin 09/13/22 History famotidine 20 mg tablet mg PO DAILY 03/19/23 04/09/24 Hist ory fluticasone furoate 100 inhalation 03/19/23 04/09/24 Histo ry mcg-vilanterol 25 mcg/dose inhalation powder (Breo Ellipta) cetirizine 10 mg capsule (Zyrtec) 10 mg PO DAILY PRN 08/02/2304/09 History d-mannose 500 mg capsule (AZO mg PO 08/02/23 04/09/24 History D-Mannose) ferrous sulfate 325 mg (65 mg 325 mg PO DAILY 08/02/23 04/09/24 History iron) tablet (Feosol) selenium 200 mcg capsule 200 mcg PO DAILY 08/02/23 04/09/24 History lisinopril 20 mg tablet 20 mg PO DAILY bp #90 tabs 4 04/09/24 Rx omeprazole 40 mg capsule,delayed 40 mg PO BID stomach #180 caps 04/09/24 Rx release riboflavin (vitamin B2) 100 mg 100 mg PO QDAY 11/04/23 04/09/24 H istory tablet simvastatin 20 mg tablet 20 mg PO QHS hld #90 tabs 11/04/23 04/09/24 Rx prazosin 2 mg capsule 2 mg PO QHS nightmares #30 caps 04/09/24 Rx fluticasone propionate 50 1 spray intranasal QDAY #16 grams 12/09/23 04/09/24 Rx mcg/actuation nasal spray,suspension (Allergy Relief (fluticasone)) estradiol 0.01% (0.1 mg/gram) 1 g vaginal 2XW hormone #42.5 gram s 12/17/23 04/09/24 Rx vaginal cream (Estrace) cyclobenzaprine 10 mg tablet 5 mg (1/2 x 10 mg) PO HS PRN 01/2604/09/24 Rx muscle spasm #30 tabs meloxicam 15 mg tablet 15 mg PO QDAY PRN pain #60 tabs 04/09/24 Rx montelukast 10 mg tablet 10 mg PO DAILY asthma #90 tabs 11/0504/09/24 Rx buspirone 15 mg tablet 15 mg PO TID 30 days #90 tabs 02/1104/09/24 Rx naltrexone 50 mg tablet 50 mg PO DAILY #30 tabs 04/06/24 0 04/09/24 Rx doxepin 10 mg capsule 10 mg PO QHS 30 days #30 caps 03/1504/09/24 Rx escitalopram oxalate 10 mg tablet 10 mg PO DAILY depression #30 tab s 04/09/24 04/09/24 Rx lamotrigine 200 mg tablet 200 mg PO QHS seizure 30 days #30 04/09/24 04/09/24 Rx tabs PFSH Medical History (Updated 02/10/24 @ 12:[address] Lee Garcia MD) Chronic constipation Cough Hot flashes, menopausal CHIQUI (obstructive sleep apnea) Migraine Obesity (BMI 30.0-34.9) Murmur Osteopenia Fatigue Health care maintenance Right otitis media with effusion Alcohol use disorder, severe, in early remission Chronic headache Low libido Dermatitis, contact Sinusitis Bipolar II disorder Overweight (BMI 25.0-29.9) Screening for STD (sexually transmitted disease) Insomnia Flu vaccine need Bee sting reaction Difficulty swallowing solids Hyponatremia Dizziness Vaginal atrophy OAB (overactive bladder) Memory impairment Sciatica Hernia History of stroke IBS (irritable bowel syndrome) Hx of migraine headaches GI problem Emphysema lung COPD (chronic obstructive pulmonary disease) Back pain Anemia Arthritis Seasonal allergies Anxiety right scapular mass Lumbar radiculopathy Asthma Bipolar depression GERD (gastroesophageal reflux disease) Orthostatic hypotension Pericardial effusion (noninflammatory) Hypertension Hyperlipidemia Chronic pain Fibromyalgia CVA (cerebral vascular acciden (more content not included)... Normal [facility] CNOVon 03-15-2024 CNOV Office Visit (UCWSTR ) CONNIE GREENBERG ([id number]) 1960 F Date Time Provider Department 03/15/24 1:30 PM EBONI WHITE WSTR During your visit today, we recorded the following information about you: Temperature Pulse Respiration Blood pressure 100.7 degrees 100/minute 20/minute 160/88 Weight 76.4 kg Eboni White APRN.CARTOGRAPHIC DESIGNER 03/15/2024 2:36 PM Signed Subjective Cough Associated symptoms include headaches. Pertinent negatives include no chest pain, no chills, no ear pain, no sore throat and no myalgias. Connie Greenberg is a 63 year old female who presents with 2 weeks of sinus congestion and pressure and cough. Notes thick and green nasal drainage. Was exposed to influenza A in grandchildren 2 days ago. Yesterday she developed a fever and worsening cough. She has been taking Nyquil and an OTC cough/sinus medication. Review of Systems Constitutional: Positive for fever and malaise/fatigue. Negative for chills. HENT: Positive for congestion and sinus pain. Negative for ear pain and sore throat. Respiratory: Positive for cough. Cardiovascular: Negative for chest pain. Gastrointestinal: Negative for diarrhea, nausea and vomiting. Musculoskeletal: Negative for myalgias. Neurological: Positive for headaches. BP 160/88 Pulse 100 Temp (!) 38.2 ?C (100.7 ?F) Resp 20 Wt 76.4 kg (168 lb 6.9 oz) SpO2 97% BMI 30.81 kg/m? PAST MEDICAL HISTORY Diagnosis Date Anxiety and [...] mcg/dose inhaler INHALE one INHALATION TWICE DAILY lamoTRIgine (LAMICTAL) 150 mg tablet Take 150 mg by mouth twice daily. lisinopril (ZESTRIL, PRINIVIL) 10 mg tablet Take 10 mg by mouth once daily. traZODone (DESYREL) 50 mg tablet Take 100 mg by mouth daily at bedtime. melatonin 10 mg tab Take by mouth daily at bedtime. 10-20 mg OLANZapine (ZYPREXA) 10 mg tablet Take 10 mg by mouth daily at bedtime. lidocaine (LIDOCARE TOPICAL) Apply to affected area as needed. cyclobenzaprine (FLEXERIL) 10 mg tablet Take by mouth as needed. fluticasone propion-salmeterol (AIRDUO DIGIHALER) 113 mcg-14 mcg/actuation digihaler Inhale 1 Inhalation as instructed twice daily. calcium carbonate (TUMS ORAL) Take by mouth as needed. naproxen sodium 220 mg cap Take by mouth as needed (pain). 1-2 tablets acetaminophen 650 mg CR tablet Take 1,300 mg by mouth every 8 hours as needed for pain. cyanocobalamin (VITAMIN B-12) 500 mcg tablet Take by mouth once daily. Cholecalciferol, Vitamin D3, 25 mcg (1,000 unit) cap Take 1,000 Units by mouth once daily. multivit with calcium,iron,min (WOMEN'S MULTIPLE VITAMINS ORAL) Take by mouth once daily. oxybutynin ER (DITROPAN [...] 20 mg by mouth daily at bedtime. amoxicillin-clavulana te potassium (AUGMENTIN) 875-125 mg per tablet Take 1 tablet by mouth two times a day for 5 days. benzonatate (TESSALON PERLES) 100 mg capsule Take 1 capsule by mouth three times a day as needed for cough. (Patient not taking: Reported on 03/15/2024) nystatin (MYCOSTATIN) 100,000 unit/mL suspension Take 5 mL by mouth four times daily. 1tsp swish in mouth for several minutes, then swallow (or expectorate) 4 times daily until gone. (Patient not taking: Reported on 10/21/2023) oxyCODONE-acetaminoph en (PERCOCET) 5-325 mg tablet Take 1-2 tablets by mouth every 4 hours as needed. (Patient not taking: Reported on 04/27/2023) gabapentin (NEURONTIN) 800 mg tablet Take 800 mg by mouth three (more content not included)... Normal [facility] INFLUENZA A&B MOLECULAR (POC )on 03-15-2024 Flu A (POCT) Positive Abnormal Negative [facility] Comment on above: Location: [place], [address] [facility], [place], [address] Interpretation and review of laboratory results Abnormal [facility] Procedural Control Valid [facility] Location: [place], [address] [facility], [place], [address] [facility] POINT OF CARE [facility] Chest 1 Viewon 02-10-2024 Chest 1 View [facility] Imaging Services [address] [place] [address] Chest 1 View MR#: [id number] Acct: [id number] Name: CONNIE GREENBERG Rep #: [id number] : 1960 F 63 From: Eh Wayne MD PCP: Dr. Lee Garcia MD Status: REG CL Study: Chest 1 View Date of Exam: 02/10/24 Exam# [id number] Ordering Dr: Lee Garcia MD [id number] STUDY: X-RAY CHEST REASON FOR EXAM: Female, 63 years old. Cough TECHNIQUE: Single PA view of the chest. COMPARISON: 09/13/2022 FINDINGS: The lungs are clear and expanded. There is no demonstrated pleural abnormality. Normal size heart. Small hiatal hernia. Normal visualized pulmonary arteries. Normal visualized aortic arch and descending thoracic aorta. Normal visualized thoracic spine. Normal visualized ribs, clavicles, and shoulders. There is no demonstrated abnormality of the visualized soft tissue structures of the upper abdomen. RAD/Chest 1 View IMPRESSION: No active disease. Small hiatal hernia. Electronically Signed: Eh Wayne MD at 13:31 EST , CC: Dr. Lee Garcia MD [employer] Manager: Signed Normal [facility] Internal Medicine Office Vis vlad 02-10-2024 Internal Medicine Office Visit [facility] [place] [address] OFFICE VISIT Date of Service: 02/10/24 MR#: [id number] Acct: [id number] Name: CONNIE GREENBERG Rep #: [id number] : 1960 Provider: Dr. Lee gallo MD Age/Sex: 63/F Location: [facility] [place].[facility] Status: Signed Intake Vital Signs 11/04/23 10:41 01/27/24 09:39 02/10/24 10:32 Height 5 ft 2 in 5 ft 2 in 5 ft 2 in Weight: 168 lb BMI 30.7 BP 122/74 H Blood Pressure Location Lt brachial Position Sitting Respiration 16 Pulse 70 Pulse Source Monitor Temp 97.8 F Temp Source Temporal Pulse Oximetry (%) 98 Oxygen Delivery Method room air Intake Visit Reasons: 3 M FU Chief Complaint: 3m f/u 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: No Accompanied by: Self Is patient in pain?: No Allergies bee venom protein (honey bee) Allergy (Mild, Verified 02/10/24 10:28) SWELLING/ SOB Medications ???Medication ???Instructions ???Recorded ???Confirmed ???Type albuterol sulfate 90 mcg/actuation 2 puff inhalation Q4H PRN PRN Sob 12/26/16 02/10/24 History aerosol inhaler /Or Wheezing cholecalciferol (vitamin D3) 125 5,000 unit PO DAILY vitamin 12/26/16 02/10/24 History mcg (5,000 unit) disintegrating tablet cyanocobalamin (vitamin B-12) 500 500 mcg PO DAILY vitamin 12/26/16 02/10/24 History mcg tablet aspirin 81 mg chewable tablet 81 mg PO DAILY@0800 blood thinner 12/27/16 02/10/24 Rx wsqssyix-fotc-lvzrz acid 240 1 tab PO DAILY vitamin 03/07/20 02/10/24 History mcg-vit K 120 zhe-yuenbj-hvyw 293 tablet (Alive Women's 50 Plus (fruit-veg blend)) pyridoxine (vitamin B6) 100 mg 100 mg PO DAILY vitamin 04/01/20 02/10/24 History tablet magnesium 200 mg tablet 400 mg PO QHS vitamin 09/13/22 02/10/24 History famotidine 20 mg tablet mg PO DAILY 03/19/23 02/10/24 History fluticasone furoate 100 inhalation 03/19/23 02/10/24 History mcg-vilanterol 25 mcg/dose inhalation powder (Breo Ellipta) cetirizine 10 mg capsule (Zyrtec) 10 mg PO DAILY PRN 08/02/23 02/10/24 History d-mannose 500 mg capsule (AZO mg PO 08/02/23 02/10/24 History D-Mannose) ferrous sulfate 325 mg (65 mg 325 mg PO DAILY 08/02/23 02/10/24 History iron) tablet (Feosol) montelukast 10 mg tablet 10 mg PO DAILY asthma #90 tabs 08/02/23 02/10/24 Rx selenium 200 mcg capsule 200 mcg PO DAILY 08/02/23 02/10/24 History buspirone 15 mg tablet 15 mg PO TID 30 days #90 tabs 09/26/23 02/10/24 Rx naltrexone 50 mg tablet 50 mg PO DAILY #30 tabs 11/01/23 02/10/24 Rx lisinopril 20 mg tablet 20 mg PO DAILY bp #90 tabs 11/04/23 02/10/24 Rx omeprazole 40 mg capsule,delayed 40 mg PO BID stomach #180 caps 11/04/23 02/10/24 Rx release riboflavin (vitamin B2) 100 mg 100 mg PO QDAY 11/04/23 02/10/24 History tablet simvastatin 20 mg tablet 20 mg PO QHS hld #90 tabs 11/04/23 02/10/24 Rx lamotrigine 200 mg tablet 200 mg PO QHS seizure 30 days #30 11/06/23 02/10/24 Rx tabs olanzapine 2.5 mg tablet 2.5 mg PO QHS bipolar #30 tabs 11/26/23 02/10/24 Rx prazosin 2 mg capsule 2 mg PO QHS nightmares #30 caps 11/26/23 02/10/24 Rx fluticasone propionate 50 1 spray intranasal QDAY #16 grams 12/09/23 02/10/24 Rx mcg/actuation nasal spray,suspension (Allergy Relief (fluticasone)) estradiol 0.01% (0.1 mg/gram) 1 g vaginal 2XW hormone #42.5 grams 12/17/23 02/10/24 Rx vaginal cream (Estrace) escitalopram oxalate 10 mg tablet 10 mg PO DAILY depression #30 tabs 01/17/24 02/10/24 Rx cyclobenzaprine 10 mg tablet 5 mg (1/2 x 10 mg) PO HS PRN 01/27/24 02/10/24 Rx muscle spasm #30 tabs meloxicam 15 mg tablet 15 mg PO QDAY PRN pain #60 tabs 01/27/24 02/10/24 Rx PFSH Medical History (Updated 02/10/24 @ 12:[address] Lee Garcia MD) Chronic constipation Cough Hot flashes, menopausal CHIQUI (obstructive sleep apnea) Migraine Obesity (BMI 30.0-34.9) Murmur Osteopenia Fatigue Health care maintenance Right otitis media with effusion Alcohol use disorder, severe, in early remission Chronic headache Low libido Dermatitis, contact Sinusitis Bipolar II disorder Overweight (BMI 25.0-29.9) Screening for STD (sexually transmitted disease) Insomnia Flu vaccine need Bee sting reaction Difficulty swallowing solids Hyponatremia Dizziness Vaginal atrophy OAB (overactive bladder) Memory impairment Sciatica Hernia History of stroke IBS (irritable bowel syndrome) Hx of migraine headaches GI problem Emphysema lung COPD (chronic obstructive pulmonary disease) Back pain Anemia Arthritis Seasonal allergies Anxiety right scapular mass Lumbar radiculopathy Asthma Bipolar depression GERD (gastroesophageal reflux disease) Orthostatic hypotension Pericardial effusion (noninflammatory) Hypertension Hyperlipidemia Chronic pain Fibromyalgia CVA (cerebral v (more content not included)... Normal [facility] L/S Spine Min 4 Viewson 01-12 L/S Spine Min 4 Views [facility] Services [address] [place] [address] L/S Spine Min 4 Views MR#: [id number] Acct: [id number] Name: CONNIE GREENBERG Rep #: [id number] : 1960 F 63 From: Fran Hickey MD PCP: Dr. Lee Garcia MD Status: REG CLI Study: L/S Spine Min 4 Views Date of Exam: 02/07/24 Exam# [id number] Ordering Dr: Lee Garcia MD [id number] STUDY: X-RAY - LUMBAR SPINE REASON FOR EXAM: Female, 63 years old. Chronic Back Pain TECHNIQUE: 4 view(s) of the lumbar spine were obtained. COMPARISON: None FINDINGS: Normal lumbar lordosis. There is no substantial scoliosis. There is a normal alignment of the vertebrae. The visualized unremarkable aside from irregularity anterior superior endplate of L5. I suspect this likely represents either a limbus vertebra or sequela from previous trauma but an acute traumatic injury cannot be completely excluded. Please correlate with history. Age consistent disc space narrowing throughout the lumbar spine. The soft tissue structures are unremarkable. 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 However an acute injury cannot be completely excluded. Please correlate with clinical history No suspicious paraspinal mass or prevertebral soft tissue abnormality, there is retained stool throughout the colon Electronically Signed: Carlos Hickey MD at 8:49 EST , CC: Dr. Lee Garcia MD [employer] Manager: Signed Normal [facility] Internal Medicine Office Vis vlad 01-27-2024 Internal Medicine Office Visit [facility] [address] [place] [address] [place] [address] OFFICE VISIT Date of Service: 01/27/24 MR#: [id number] Acct: [id number] Name: CONNIE GREENBERG Rep #: [id number] : 1960 Provider: Dr. Lee gallo MD Age/Sex: 63/F Location: [facility] [place].[facility] Status: Signed Intake Vital Signs 12/09/23 11:35 01/27/24 09:39 Height 5 ft 2 in 5 ft 2 in Weight: 168 lb BMI 30.7 BP 124/74 H Blood Pressure Location Lt brachial Position Sitting Respiration 16 Pulse 68 Pulse Source Monitor Temp 97.8 F Temp Source Temporal Pulse Oximetry (%) 98 Oxygen Delivery Method room air Intake Visit Reasons: BACK PAIN Chief Complaint: back pain 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: No Accompanied by: Self Is patient in pain?: Yes (back pain) Pain scale (1-10): 7 Allergies bee venom protein (honey bee) Allergy (Mild, Verified 01/27/24 09:35) SWELLING/ SOB Medications ???Medication ???Instructions ???Recorded ???Confirmed ???Type albuterol sulfate 90 mcg/actuation 2 puff inhalation Q4H PRN PRN Sob 12/26/16 01/27/24 History aerosol inhaler /Or Wheezing cholecalciferol (vitamin D3) 125 5,000 unit PO DAILY vitamin 12/26/16 01/27/24 History mcg (5,000 unit) disintegrating tablet cyanocobalamin (vitamin B-12) 500 500 mcg PO DAILY vitamin 12/26/16 01/27/24 History mcg tablet aspirin 81 mg chewable tablet 81 mg PO DAILY@0800 blood thinner 12/27/16 01/27/24 Rx ovmzytrg-ohnb-aflqo acid 240 1 tab PO DAILY vitamin 03/07/20 01/27/24 History mcg-vit K 120 vie-yacbee-uyrd 293 tablet (Alive Women's 50 Plus (fruit-veg blend)) pyridoxine (vitamin B6) 100 mg 100 mg PO DAILY vitamin 04/01/20 01/27/24 History tablet magnesium 200 mg tablet 400 mg PO QHS vitamin 09/13/22 01/27/24 History famotidine 20 mg tablet mg PO DAILY 03/19/23 01/27/24 History fluticasone furoate 100 inhalation 03/19/23 01/27/24 History mcg-vilanterol 25 mcg/dose inhalation powder (Breo Ellipta) cetirizine 10 mg capsule (Zyrtec) 10 mg PO DAILY PRN 08/02/23 01/27/24 History d-mannose 500 mg capsule (AZO mg PO 08/02/23 01/27/24 History D-Mannose) ferrous sulfate 325 mg (65 mg 325 mg PO DAILY 08/02/23 01/27/24 History iron) tablet (Feosol) montelukast 10 mg tablet 10 mg PO DAILY asthma #90 tabs 08/02/23 01/27/24 Rx selenium 200 mcg capsule 200 mcg PO DAILY 08/02/23 01/27/24 History buspirone 15 mg tablet 15 mg PO TID 30 days #90 tabs 09/26/23 01/27/24 Rx naltrexone 50 mg tablet 50 mg PO DAILY #30 tabs 11/01/23 01/27/24 Rx lisinopril 20 mg tablet 20 mg PO DAILY bp #90 tabs 11/04/23 01/27/24 Rx omeprazole 40 mg capsule,delayed 40 mg PO BID stomach #180 caps 11/04/23 01/27/24 Rx release riboflavin (vitamin B2) 100 mg 100 mg PO QDAY 11/04/23 01/27/24 History tablet simvastatin 20 mg tablet 20 mg PO QHS hld #90 tabs 11/04/23 01/27/24 Rx lamotrigine 200 mg tablet 200 mg PO QHS seizure 30 days #30 11/06/23 01/27/24 Rx tabs olanzapine 2.5 mg tablet 2.5 mg PO QHS bipolar #30 tabs 11/26/23 01/27/24 Rx prazosin 2 mg capsule 2 mg PO QHS nightmares #30 caps 11/26/23 01/27/24 Rx fluticasone propionate 50 1 spray intranasal QDAY #16 grams 12/09/23 01/27/24 Rx mcg/actuation nasal spray,suspension (Allergy Relief (fluticasone)) estradiol 0.01% (0.1 mg/gram) 1 g vaginal 2XW hormone #42.5 grams 12/17/23 01/27/24 Rx vaginal cream (Estrace) escitalopram oxalate 10 mg tablet 10 mg PO DAILY depression #30 tabs 01/17/24 01/27/24 Rx amoxicillin 875 mg-potassium 1 tab PO Q12H #20 tabs 01/27/24 01/27/24 Rx clavulanate 125 mg tablet cyclobenzaprine 10 mg tablet 5 mg (1/2 x 10 mg) PO HS PRN 01/27/24 01/27/24 Rx muscle spasm #30 tabs meloxicam 15 mg tablet 15 mg PO QDAY PRN pain #60 tabs 01/27/24 01/27/24 Rx PFSH Medical History (Updated 01/27/24 @ 16:[address] Lee Garcia MD) Hot flashes, menopausal CHIQUI (obstructive sleep apnea) Migraine Obesity (BMI 30.0-34.9) Murmur Osteopenia Fatigue Health care maintenance Right otitis media with effusion Alcohol use disorder, severe, in early remission Chronic headache Low libido Dermatitis, contact Sinusitis Bipolar II disorder Overweight (BMI 25.0-29.9) Screening for STD (sexually transmitted disease) Insomnia Flu vaccine need Bee sting reaction Difficulty swallowing solids Hyponatremia Dizziness Vaginal atrophy OAB (overactive bladder) Memory impairment Sciatica Hernia History of stroke IBS (irritable bowel syndrome) Hx of migraine headaches GI problem Emphysema lung COPD (chronic obstructive pulmonary disease) Back pain Anemia Arthritis Seasonal allergies Anxiety right scapular mass Lumbar radiculopathy Asthma Bipolar depression GERD (gastroesophageal reflux disease) Orthostatic hypotension Pericardial effusion (noninfl (more content not included)... Normal [facility] Re-Evaluation - PT (1)on Re-Evaluation - PT (1) [facility] [address] [place] [address] / REEVALUATION / MEDICARE RECERTIFICATION PHYSICAL THERAPY MR#: [id number] Acct: [id number] Name: CONNIE GREENBERG Rep #: [id number] : 1960 63 From: Hayden Burns DPT, OCS, CSCS Referring Dr.: URIEL Araujo Status:REG RCR Insurance: [employer], [place] [employer]ANCE Re-Evaluation Intro: URIEL Oswald, It has been my pleasure to treat CONNIE GREENBERG over the last 8 visits for sciatica, dorsalgia. Please see the progress note below for an update on the physical therapy plan of care! Subjective Subjective: Went on vacation to [place]. It went well but got sick in the sinus. Back is hurting but the pool helped. Diminished by 50% to 5/10. Back up to 8 now since has not been in there in a while. Doiong HEP of stretches Objective Objective/Function: Good lb ROM but everything mmakes me painful walking well today without antalgia and 3/10 pain in LB. Should be good with pool ex with compliance and appropriate to continue to teach gym based core and general strength New POC and new goal and old stilla pprorpiate, fair prognosis with compliance. Plan Plan Plan: 2x/week for 3-4 weeks ...please teach gym based core adn LE and postural strength adn work to I at [employer], verbally see if she is continuing in the pool Balance/Gait/Function al tests Balance/Special Test Scores Oswestry Low Back Score: 24 Goals Goals Goal 1:: Sleep 6 hrs without waking due to pain. Goal Time Frame: 4-6 Weeks Goal Progress: Not Progressing Goal 2:: I appropriate HEP to minimize future problems Goal Time Frame: 4-6 Weeks Goal Progress: Progressing Goal 3:: Pain 50% better at 4/10 at worst. Goal Time Frame: 4-6 Weeks Goal Progress: Progressing Goal 4:: oswestry score 8 or better Goal Time Frame: 4-6 Weeks Goal 5:: I with gym based core strength for back. Goal Time Frame: 2-4 Weeks Goal Progress: NEW GOAL Anticipated Interventions Anticipated Interventions Patient/Client Instruction: Educate patient on: Condition and Plan of Care For the Purpose of:: To increase ROM, To improve nutrient delivery to tissue and To improve muscle performance and motor function Therapeutic Exercise to Include: Strength training, Postural training, Flexibilty training, Passive ROM, Active ROM and Dynamic Lumbar Stabilization For the Purpose of:: To decrease pain, To increase ROM, To improve nutrient delivery to tissue, To improve muscle performance and motor function and To increase tolerance to ac tivity/condition/posi tion Manual Therapy Techniques to Include: Mobilization, Passive ROM and Soft tissue mobilization For the Purpose of:: To decrease pain, To increase ROM and To improve nutrient delivery to tissue TENS: Yes Comment: pt has unit at home For the Purpose of:: To decrease pain Re-Evaluation Ending Re-evaluation ending: Please do not hesitate to contact me at [phone] by phone or if you have questions or concerns regarding this new plan of care! Sincerely, Hayden Burns, ANTHONYT, OCS, CSCS 01/23/24 1126 CC: URIEL Araujo; Dr. Lee Garcia MD EBG Signed For Medicare only, by signing this I certify the plan of care. Physicians Signature Date Normal [facility] Inital Evaluation (1) - PTon 12-16-2023 Inital Evaluation (1) - PT [facility] [address] [place] [address] / REHABILITATION SERVICES INITIAL EVALUATION MR#: [id number] Acct: [id number] Name: CONNIE GREENBERG Rep #: [id number] : 1960 63 From: Hayden Burns DPT, OCS, CSCS Referring Dr.: URIEL Oswald Status: REG R Insurance: [employer], [place] [employer] INSURANCE Patient's Visit Information Visit Information Visit Information: CONNIE GREENBERG is a 63 year old F referred to Physical Therapy by URIEL Oswald with a diagnosis of sciatica, dorsalgia. Date of Evaluation: 12/16/23 Physical Therapist: Hayden Burns DPT, OCS, CSCS Visit Plan Frequency: 2x /Week Duration: 4-6 Weeks Plan: 2x/week for 4-6 weeks around a vacation she has planned in about 3 weeks. start pool and progress to gym as she is a [employer] member. HS and quad stretches LB ROM core and leg and postural strength in poolk and to HEP. work toward full general exercise for patient. May bring tens unit for instruction. Recheck with EG after her trip at end of month and then consider getting out to gym or further pool. Subjective Subjective: LBP and leg pain for years and has spurts where it worsens and hurts all the time. Down both legs to the knees in the back. Worse in the morning upon rising. uses heat which helps. Worse in am and worse if sits too much or walks too much. Sleep is not great, needs heating pad. Up every 4 hours for tylenol. Doctoring for 2 months for this, putting up with it prior. Yrs ago saw pain doctor Nevaeh Caldera and injections did not help anymore. No regular exercises. Not employed. Basic ADLs : dressing and bathroom, shower I. Dtr cleans house, but pt swiffers and does dishes. Steps one at a time with R and railing. Pain LBP: Pain Intensity (Out of 10): 5 Pain Intensity Range: 8 Comment: am worse, improved later in day. worse if sit too much. Objective Objective: Walks into PT slow but I, short steps. Trasnfers chair and bed I. march and butt kicks bother upper legs(tight), Able to heel raise and toe raise. Lumbar AROM ext painful central and min limited, flexion tight in posterior legs and min limited, SB pain centrally min limited. stiff LB. Flexibility HS at -30 90/90 with pain when stretching in LE.quads min tight B. reflexes 2/3 patella dn achilles sensation LE WNL to gross lgiht touch B. Strength is 3+ hip abd and ext B, 4- hip flexion with core weakness and instability. knee flexiona dn ext 4-, ankles 4/5. shoulder flexion 4- withouyt pain. - SLR, - Slump test. Balance/Special Test Scores Oswestry Low Back Score: 25 Goals Goal 1:: Sleep 6 hrs without waking due to pain. Goal Time Frame: 4-6 Weeks Goal 2:: I appropriate HEP to minimize future problems Goal Time Frame: 4-6 Weeks Goal 3:: Pain 50% better at 4/10 at worst. Goal Time Frame: 4-6 Weeks Goal 4:: oswestry score 8 or better Goal Time Frame: 4-6 Weeks Rehabilitation Potential Physical Therapy Diagnosis: degenerative changes with pain in LB causing uncomfortable function. Rehabilitation Potential: Fair Anticipated Interventions Patient/Client Instruction: Educate patient on: Condition and Plan of Care For the Purpose of:: To increase ROM, To improve nutrient delivery to tissue and To improve muscle performance and motor function Therapeutic Exercise to Include: Strength training, Postural training, Flexibilty training, Passive ROM, Active ROM and Dynamic Lumbar Stabilization For the Purpose of:: To decrease pain, To increase ROM, To improve nutrient delivery to tissue, To improve muscle performance and motor function and To increase tolerance to activity/condition/po sition Manual Therapy Techniques to Include: Mobilization, Passive ROM and Soft tissue mobilization For the Purpose of:: To decrease pain, To increase ROM and To improve nutrient delivery to tissue TENS: Yes Comment: pt has unit at home For the Purpose of:: To decrease pain Text: Thank you for the opportunity to evaluate your patient. For Medicare and Medicare HMO plans, please review the plan of care and approve it. It will need to be FAXED BACK to us at [phone] for Medicare purposes. For Medicare only, by signing this I certify the plan of care. Please let me know if there are questions or concerns regarding this plan of care. Physician Signature: Date : 12/16/23 1345 CC: URIEL Araujo; Dr. Lee Garcia MD EBG Signed Normal [facility] Internal Medicine Office Vis iton 12-09-2023 Internal Medicine Office Visit [facility] [address] [place] [address] [place] [address] OFFICE VISIT Date of Service: 12/09/23 MR#: [id number] Acct: [id number] Name: CONNIE GREENBERG Rep #: [id number] : 1960 Provider: URIEL diana Age/Sex: 63/F Location: [facility] Status: Signed Intake Vital Signs 11/26/23 13:38 12/09/23 11:35 Height 5 ft 2 in 5 ft 2 in Weight: 177 lb BMI 32.3 BP 122/74 H Blood Pressure Location Lt brachial Position Sitting Respiration 16 Pulse 74 Pulse Source Monitor Temp 99.1 F Temp Source Temporal Pulse Oximetry (%) 98 Oxygen Delivery Method room air Intake Visit Reasons: SINUS INFECTION/BACK PAIN Chief Complaint: FU Chronic conditions. 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: No Is patient in pain?: Yes (Low back pain ) Pain scale (1-10): 10 Allergies bee venom protein (honey bee) Allergy (Mild, Verified 12/09/23 11:28) SWELLING/ SOB Medications ???Medication ???Instructions ???Recorded ???Confirmed ???Type albuterol sulfate 90 mcg/actuation 2 puff inhalation Q4H PRN PRN Sob 12/26/16 12/09/23 History aerosol inhaler /Or Wheezing cholecalciferol (vitamin D3) 125 5,000 unit PO DAILY vitamin 12/26/16 12/09/23 History mcg (5,000 unit) disintegrating tablet cyanocobalamin (vitamin B-12) 500 500 mcg PO DAILY vitamin 12/26/16 12/09/23 History mcg tablet aspirin 81 mg chewable tablet 81 mg PO DAILY@0800 blood thinner 12/27/16 12/09/23 Rx zoeinxxm-fbtt-mmvlq acid 240 1 tab PO DAILY vitamin 03/07/20 12/09/23 History mcg-vit K 120 meb-byautv-kfjw 293 tablet (Alive Women's 50 Plus (fruit-veg blend)) pyridoxine (vitamin B6) 100 mg 100 mg PO DAILY vitamin 04/01/20 12/09/23 History tablet magnesium 200 mg tablet 400 mg PO QHS vitamin 09/13/22 12/09/23 History famotidine 20 mg tablet mg PO DAILY 03/19/23 12/09/23 History fluticasone furoate 100 inhalation 03/19/23 12/09/23 History mcg-vilanterol 25 mcg/dose inhalation powder (Breo Ellipta) cetirizine 10 mg capsule (Zyrtec) 10 mg PO DAILY PRN 08/02/23 12/09/23 History d-mannose 500 mg capsule (AZO mg PO 08/02/23 12/09/23 History D-Mannose) estradiol 0.01% (0.1 mg/gram) 1 g vaginal 2XW hormone #42.5 grams 08/02/23 12/09/23 Rx vaginal cream (Estrace) ferrous sulfate 325 mg (65 mg 325 mg PO DAILY 08/02/23 12/09/23 History iron) tablet (Feosol) montelukast 10 mg tablet 10 mg PO DAILY asthma #90 tabs 08/02/23 12/09/23 Rx selenium 200 mcg capsule 200 mcg PO DAILY 08/02/23 12/09/23 History buspirone 15 mg tablet 15 mg PO TID 30 days #90 tabs 09/26/23 12/09/23 Rx escitalopram oxalate 10 mg tablet 10 mg PO DAILY depression #30 tabs 09/26/23 12/09/23 Rx naltrexone 50 mg tablet 50 mg PO DAILY #30 tabs 11/01/23 12/09/23 Rx lisinopril 20 mg tablet 20 mg PO DAILY bp #90 tabs 11/04/23 12/09/23 Rx omeprazole 40 mg capsule,delayed 40 mg PO BID stomach #180 caps 11/04/23 12/09/23 Rx release riboflavin (vitamin B2) 100 mg 100 mg PO QDAY 11/04/23 12/09/23 History tablet simvastatin 20 mg tablet 20 mg PO QHS hld #90 tabs 11/04/23 12/09/23 Rx lamotrigine 200 mg tablet 200 mg PO QHS seizure 30 days #30 11/06/23 12/09/23 Rx tabs olanzapine 2.5 mg tablet 2.5 mg PO QHS bipolar #30 tabs 11/26/23 12/09/23 Rx prazosin 2 mg capsule 2 mg PO QHS nightmares #30 caps 11/26/23 12/09/23 Rx amoxicillin 875 mg-potassium 1 tab PO BID #10 tabs 12/09/23 12/09/23 Rx clavulanate 125 mg tablet meloxicam 15 mg tablet 15 mg PO QDAY PRN pain #30 tabs 12/09/23 12/09/23 Rx Nurse's Note: States sx's started last weekend w/ nasal congestion, and a productive cough, which is green has been treating w/ otc sinus meds which doesn't help. States both sides sciatica is acting up and shooting down legs. States she has to use a cane at night. Has also been treating w/ lidocaine patches, naproxen, tylneol, then if not helped she uses ibuprofen. [facility] Medical History CHIQUI (obstructive sleep apnea) Migraine Obesity (BMI 30.0-34.9) Murmur Osteopenia Fatigue Health care maintenance Right otitis media with effusion Alcohol use disorder, severe, in early remission Chronic headache Low libido Dermatitis, contact Sinusitis Bipolar II disorder Overweight (BMI 25.0-29.9) Screening for STD (sexually transmitted disease) Insomnia Flu vaccine need Bee sting reaction Difficulty swallowing solids Hyponatremia Dizziness Vaginal atrophy OAB (overactive bladder) Memory impairment Sciatica Hernia History of stroke IBS (irritable bowel syndrome) Hx of migraine headaches GI problem Emphysema lung COPD (chronic obstructive pulmonary disease) Back pain Anemia Arthritis Seasonal allergies Anxiety right scapular mass Lumbar radiculopathy Asthma Bipolar depression GERD (more content not included)... Normal [facility] MR/BMS.BPon 11-26-2023 MR/BMS.BP [facility] [address] [place] [address] OFFICE VISIT Date of Service: 11/26/23 MR#: [id number] Acct: [id number] Name: CONNIE GREENBERG Rep #: [id number] : 1960 Provider: Dr. Osvaldo Fung se, DO Age/Sex: 63/F Location: [facility] [place] Status: Signed Intake Vital Signs 09/26/23 13:52 11/04/23 10:41 11/26/23 13:37 11/26/23 13:38 Height 5 ft 2 in 5 ft 2 in 5 ft 2 in 5 ft 2 in Weight: 175 lb BMI 32.0 BP 116/78 123/75 H Blood Pressure Location Lt brachial Rt brachial Position Sitting Sitting Respiration 18 Pulse 68 88 Pulse Source Monitor Monitor Temp 97.3 F L Pulse Oximetry (%) 98 Oxygen Delivery Method room air BP Intake Visit Reasons: 2 M FU Accompanied by: Self Is patient in pain?: Yes (headache) Pain scale (1-10): 6 Allergies bee venom protein (honey bee) Allergy (Mild, Verified 11/26/23 13:34) SWELLING/ SOB Medications ???Medication ???Instructions ???Recorded ???Confirmed ???Type albuterol sulfate 90 mcg/actuation 2 puff inhalation Q4H PRN PRN Sob 12/26/16 11/26/23 History aerosol inhaler /Or Wheezing cholecalciferol (vitamin D3) 125 5,000 unit PO DAILY vitamin 12/26/16 11/26/23 History mcg (5,000 unit) disintegrating tablet cyanocobalamin (vitamin B-12) 500 500 mcg PO DAILY vitamin 12/26/16 11/26/23 History mcg tablet aspirin 81 mg chewable tablet 81 mg PO DAILY@0800 blood thinner 12/27/16 11/26/23 Rx ixqgoahj-kpce-yfpow acid 240 1 tab PO DAILY vitamin 03/07/20 11/26/23 History mcg-vit K 120 jzd-nblitg-vlhr 293 tablet (Alive Women's 50 Plus (fruit-veg blend)) pyridoxine (vitamin B6) 100 mg 100 mg PO DAILY vitamin 04/01/20 11/26/23 History tablet magnesium 200 mg tablet 400 mg PO QHS vitamin 09/13/22 11/26/23 History famotidine 20 mg tablet mg PO DAILY 03/19/23 11/26/23 History fluticasone furoate 100 inhalation 03/19/23 11/26/23 History mcg-vilanterol 25 mcg/dose inhalation powder (Breo Ellipta) cetirizine 10 mg capsule (Zyrtec) 10 mg PO DAILY PRN 08/02/23 11/26/23 History d-mannose 500 mg capsule (AZO mg PO 08/02/23 11/26/23 History D-Mannose) estradiol 0.01% (0.1 mg/gram) 1 g vaginal 2XW hormone #42.5 grams 08/02/23 11/26/23 Rx vaginal cream (Estrace) ferrous sulfate 325 mg (65 mg 325 mg PO DAILY 08/02/23 11/26/23 History iron) tablet (Feosol) montelukast 10 mg tablet 10 mg PO DAILY asthma #90 tabs 08/02/23 11/04/23 Rx selenium 200 mcg capsule 200 mcg PO DAILY 08/02/23 11/26/23 History buspirone 15 mg tablet 15 mg PO TID 30 days #90 tabs 09/26/23 11/26/23 Rx escitalopram oxalate 10 mg tablet 10 mg PO DAILY depression #30 tabs 09/26/23 11/26/23 Rx naltrexone 50 mg tablet 50 mg PO DAILY #30 tabs 11/01/23 11/26/23 Rx lisinopril 20 mg tablet 20 mg PO DAILY bp #90 tabs 11/04/23 11/26/23 Rx omeprazole 40 mg capsule,delayed 40 mg PO BID stomach #180 caps 11/04/23 11/26/23 Rx release riboflavin (vitamin B2) 100 mg 100 mg PO QDAY 11/04/23 11/26/23 History tablet simvastatin 20 mg tablet 20 mg PO QHS hld #90 tabs 11/04/23 11/26/23 Rx lamotrigine 200 mg tablet 200 mg PO QHS seizure 30 days #30 11/06/23 11/26/23 Rx tabs olanzapine 2.5 mg tablet 2.5 mg PO QHS bipolar #30 tabs 11/26/23 11/26/23 Rx prazosin 2 mg capsule 2 mg PO QHS nightmares #30 caps 11/26/23 Rx PFSH Medical History CHIQUI (obstructive sleep apnea) Migraine Obesity (BMI 30.0-34.9) Murmur Osteopenia Fatigue Health care maintenance Right otitis media with effusion Alcohol use disorder, severe, in early remission Chronic headache Low libido Dermatitis, contact Sinusitis Bipolar II disorder Overweight (BMI 25.0-29.9) Screening for STD (sexually transmitted disease) Insomnia Flu vaccine need Bee sting reaction Difficulty swallowing solids Hyponatremia Dizziness Vaginal atrophy OAB (overactive bladder) Memory impairment Sciatica Hernia History of stroke IBS (irritable bowel syndrome) Hx of migraine headaches GI problem Emphysema lung COPD (chronic obstructive pulmonary disease) Back pain Anemia Arthritis Seasonal allergies Anxiety right scapular mass Lumbar radiculopathy Asthma Bipolar depression GERD (gastroesophageal reflux disease) Orthostatic hypotension Pericardial effusion (noninflammatory) Hypertension Hyperlipidemia Chronic pain Fibromyalgia CVA (cerebral vascular accident) Surgical History H/O laparoscopy Hx of breast biopsy History of total hysterectomy Family History Unknown Past medical history not known due to adoption Social History household members: spouse Smoking Statu (more content not included)... Normal [facility] Echo Completeon 11-18-2023 Echo [facility] [address] [place] [address] Echo Complete 11/18/23 1401 MR#: [id number] Acct: [id number] Name: CONNIE GREENBERG Rep #: [id number] : 1960 63 From: Fish Ag MD Attending Dr: Dr. Lee Garcia MD Status: REG CLI Ordering Dr: Lee Garcia MD Date: 11/18/23 Location: [facility] Sex: F C Admitted: Reason For Study: MURMUR Procedure This was a 2D Doppler, Color Flow transthoracic echocardiogram. Exam performed in department. Left Ventricle Normal LV size. Left ventricular systolic function is normal. The left ventricular ejection fraction is 65 %. No regional wall motion abnormalities noted. Right Ventricle Normal RV size. Normal systolic function. Atria Normal left atrium. Normal right atrium. Mitral Valve Normal mitral valve. Tricuspid Valve Normal tricuspid valve. Mild (1+) tricuspid valve insufficiency. Pulmonary artery systolic pressure is 27 mmHg. Aortic Valve Trisinus/trileaflet aortic valve. Mild focal aortic valve thickening. Pulmonic Valve Normal pulmonic valve. Great Vessels Normal aortic root. The pulmonary artery is normal size. Normal inferior vena cava. Pericardium/Pleural No pericardial effusion. MMode/2D Measurements Calculations LVIDd: 4.2 cm IVSd: 1.3 cm LVOT diam: 1.9 cm LVIDs: 2.0 cm LVPWd: 1.0 cm LVOT area: 2.8 cm2 RVDd: 3.5 cm FS: 51.8 % asc Aorta Diam: 2.8 cm LAV(MOD-bp): 52.4 ml LVAd ap4: 22.1 cm2 LAV(MOD-bp) Indexed: 29.0 ml/m2 LVLd ap4: 7.5 cm LAV(MOD-sp2): 49.2 ml EDV(MOD-sp4): 54.1 ml LAV(MOD-sp4): 51.7 ml EDV(sp4-el): 55.0 ml LVAs ap4: 10.9 cm2 LVLs ap4: 5.9 cm ESV(MOD-sp4): 16.9 ml ESV(sp4-el): 17.0 ml EF(MOD-sp4): 68.7 % EF(sp4-el): 69.1 % LVAd ap2: 21.0 cm2 SV(MOD-sp4): 37.2 ml SV(MOD-sp2): 32.4 ml LVLd ap2: 7.5 cm EDV(MOD-sp2): 49.6 ml EDV(sp2-el): 50.2 ml LVAs ap2: 11.2 cm2 LVLs ap2: 6.3 cm ESV(MOD-sp2): 17.2 ml ESV(sp2-el): 16.9 ml EF(MOD-sp2): 65.3 % SV(sp4-el): 38.1 ml Ao sinus diam: 2.[address] Junction: 2.2 cm LA dimension(2D): 3.9 cm LA A4 area: 19.6 cm2 RA A4 area: 12.3 cm2 TAPSE: 2.0 cm Time Measurements MV dec time: 0.24 sec Doppler Measurements Calculations MV E max michelle: 95.0 cm/sec Lat Peak E' Michelle: 11.2 cm/sec Med Peak E' Michelle: 9.8 cm/sec MV A max michelle: 84.0 cm/sec E/E' lat: 8.5 E/E' med: 9.7 MV E/A: 1.1 MV dec slope: 394.8 cm/sec2 Ao V2 max: 217.6 cm/sec LV V1 max: 166.6 cm/sec Ao max P.0 mmHg LV V1 max P.1 mmHg Ao V2 mean: 153.2 cm/sec LV V1 mean P.2 mmHg Ao mean P.5 mmHg LV V1 mean: 115.8 cm/sec Ao V2 VTI: 43.5 cm LV V1 VTI: 35.0 cm AV (velocity ratio): 0.80 TAMIE(I,D): 2.3 cm2 TAMIE(V,D): 2.2 cm2 SV(LVOT): 99.7 ml PA V2 max: 115.2 cm/sec TR max michelle: 246.2 cm/sec PA max PG (full): 2.1 mmHg TR max P.3 mmHg ECHO/Echo Complete Interpretation Summary Left ventricular systolic function is normal. Normal LV size. The left ventricular ejection fraction is 65 %. Mild focal aortic valve thickening. Pulmonary artery systolic pressure is 27 mmHg. Ordering Physician: Lee Garcia Referring Physician: Lee Garcia Performed By: Ivon Gong, [facility] 11/18/231803 Date Fish Ag MD CC: Dr. Lee Garcia MD Date Dictated: 11/18/231400 Date Transcribed: 11/18/231803 [employer] Manager: Signed Normal [facility] CBC W/Diff, Automatedon 10-13 Absolute Lymph 1.19 X10 3/uL Normal 0.83-4.[address] [facility] Comment on above: Performed By: #### L 506.1000, L100.0100, L500.4050 #### [facility] [address] [place], [address] Absolute Neut 4.4 X10 3/uL Normal 2.0-7.[address] [facility] Comment on above: Performed By: #### L 506.1000, L100.0100, L500.4050 #### [facility] [address] [place], [address] Basophils/100 WBC (Bld) 0.0 % Normal 0-[address] [facility] Comment on above: Performed By: #### L 506.1000, L100.0100, L500.4050 #### [facility] [address] [place], [address] Eosinophils/100 WBC (Bld) 2.5 % Normal 0-[address] [facility] Comment on above: Performed By: #### L 506.1000, L100.0100, L500.4050 #### [facility] [address] [place], [address] Erythrocyte distribution width (RBC) [Ratio] 12.7 % Normal 11.6-14.[address] [facility] Comment on above: Performed By: #### L 506.1000, L100.0100, L500.4050 #### [facility] [address] [place], [address] Hematocrit (Bld) [Volume fraction] 37.4 % Normal 37-[address] [facility] Comment on above: Performed By: #### L 506.1000, L100.0100, L500.4050 #### [facility] [address] [place], [address] Hemoglobin (Bld) [Mass/Vol] 12.0 g/dL Normal 12.0-15.[address] [facility] Comment on above: Performed By: #### L 506.1000, L100.0100, L500.4050 #### [facility] [address] [place], [address] IG% 0.300 Normal 0.0-0.[address] [facility] Comment on above: Result Comment: IG% - Immature Granulocytes (promyelocytes, myelocytes and metamyelocytes) > 1% indicates that a LEFT SHIFT is Present. Performed By: #### L 506.1000, L100.0100, L500.4050 #### [facility] [address] [place], [address] Lymphocytes/100 WBC (Bld) 18.8 % Low 19-[address] [facility] Comment on above: Performed By: #### L 506.1000, L100.0100, L500.4050 #### [facility] [address] [place], [address] MCH (RBC) [Entitic mass] 30.5 pg Normal 27.0-32.[address] [facility] Comment on above: Performed By: #### L 506.1000, L100.0100, L500.4050 #### [facility] [address] [place], [address] MCHC (RBC) [Mass/Vol] 32.1 g/dL Normal 32-[address] [facility] Comment on above: Performed By: #### L 506.1000, L100.0100, L500.4050 #### [facility] [address] [place], [address] MCV (RBC) [Entitic vol] 94.9 fL Normal 81-[address] [facility] Comment on above: Performed By: #### L 506.1000, L100.0100, L500.4050 #### [facility] [address] [place], [address] Monocytes/100 WBC (Bld) 8.4 % Normal 0-[address] [facility] Comment on above: Performed By: #### L 506.1000, L100.0100, L500.4050 #### [facility] [address] [place], [address] Neutrophils/100 WBC (Bld) 70.0 % Normal 47-[address] [facility] Comment on above: Performed By: #### L 506.1000, L100.0100, L500.4050 #### [facility] [address] [place], [address] Nucleated RBC (Bld) [#/Vol] 0 10*3/uL Normal 0-[address] [facility] Comment on above: Performed By: #### L 506.1000, L100.0100, L500.4050 #### [facility] [address] [place], [address] Platelet mean volume (Bld) [Entitic vol] 9.8 fL Normal 6.2-12.[address] [facility] Comment on above: Performed By: #### L 506.1000, L100.0100, L500.4050 #### [facility] [address] [place], [address] Platelets (Bld) [#/Vol] 275 10*3/uL Normal 150-[address] [facility] Comment on above: Performed By: #### L 506.1000, L100.0100, L500.4050 #### [facility] [address] [place], [address] RBC (Bld) [#/Vol] 3.94 10*6/uL Low 4.2-5.4 [facility] Comment on above: Performed By: #### L 506.1000, L100.0100, L500.4050 #### [facility] [address] [place], [address] RDW SD 44.1 fl High 35.1-43.[address] [facility] Comment on above: Performed By: #### L 506.1000, L100.0100, L500.4050 #### [facility] [address] [place], [address] WBC (Bld) [#/Vol] 6.3 10*3/uL Normal 4.4-11.0 [facility] Comment on above: Performed By: #### L 506.1000, L100.0100, L500.4050 #### [facility] [address] [place], [address] Comprehensive Metabolic Prof [facility] 11-04-2023 Albumin [Mass/Vol] 3.8 g/dL Normal 3.2-5.0 [facility] Comment on above: Performed By: #### L 506.1000, L100.0100, L500.4050 #### [facility] [address] [place], [address] Albumin/Globulin [Mass ratio] 1.1 {ratio} Normal 0.9-2.[address] [facility] Comment on above: Performed By: #### L 506.1000, L100.0100, L500.4050 #### [facility] [address] [place], [address] ALK P 150 U/L High 45-[address] [facility] Comment on above: Performed By: #### L 506.1000, L100.0100, L500.4050 #### [facility] [address] [place], [address] ALT [Catalytic activity/Vol] 20 U/L Normal 13-[address] [facility] Comment on above: Performed By: #### L 506.1000, L100.0100, L500.4050 #### [facility] [address] [place], [address] AST [Catalytic activity/Vol] 14 U/L Low 15-[address] [facility] Comment on above: Performed By: #### L 506.1000, L100.0100, L500.4050 #### [facility] [address] [place], [address] Bilirubin [Mass/Vol] 0.50 mg/dL Normal 0.20-1.00 [facility] Comment on above: Result Comment: For patients on eltrombopag therapy, use of Dimension [place] TBIL is not recommended. Performed By: #### L 506.1000, L100.0100, L500.4050 #### [facility] [address] [place], [address] BUN/CRE 11.9 RATIO Normal 10-[address] [facility] Comment on above: Performed By: #### L 506.1000, L100.0100, L500.4050 #### [facility] [address] [place], [address] CA,Total 10.0 mg/dL Normal 8.5-10.[address] [facility] Comment on above: Performed By: #### L 506.1000, L100.0100, L500.4050 #### [facility] [address], [address] Chloride [Moles/Vol] 100 mmol/L Normal 98-107 [facility] Comment on above: Performed By: #### L 506.1000, L100.0100, L500.4050 #### [facility] [address] [place], [address] CO2 [Moles/Vol] 27.0 mmol/L Normal 21.0-32.[address] [facility] Comment on above: Performed By: #### L 506.1000, L100.0100, L500.4050 #### [facility] [address] [place], [address] Creatinine [Mass/Vol] 0.92 mg/dL Normal 0.55-1.[address] [facility] Comment on above: Result Comment: The validity of the calculated GFR GFRAA in patients over 70 years has not been determined. Clinical correlation is essential. Performed By: #### L 506.1000, L100.0100, L500.4050 #### [facility] [address] [place], [address] EST GFR - AA 80 mL/min Normal >[address] [facility] Comment on above: Result Comment: Afri can Ecuadorean GFR Calc Performed By: #### L 506.1000, L100.0100, L500.4050 #### [facility] [address] [place], [address] GAP 7 Normal 5-[address] [facility] Comment on above: Performed By: #### L 506.1000, L100.0100, L500.4050 #### [facility] [address] [place], [address] GFR/1.73 sq M.predicted among non-blacks MDRD (S/P/Bld) [Vol rate/Area] 66 mL/min/{1.73_m2} Normal >[address] [facility] Comment on above: Result Comment: Non- GFR Calc Performed By: #### L 506.1000, L100.0100, L500.4050 #### [facility] [address], [address] Globulin (S) [Mass/Vol] 3.6 g/dL Normal 2.2-4.[address] [facility] Comment on above: Performed By: #### L 506.1000, L100.0100, L500.4050 #### [facility] [address] [place], [address] Glucose [Mass/Vol] 129 mg/dL High 74-106 [facility] Comment on above: Result Comment: Fast ing Glucose result greater than or equal to 126 mg/dL suggests DIABETES MELLITUS per A.D.A. criteria. Performed By: #### L 506.1000, L100.0100, L500.4050 #### [facility] [address] [place], [address] Potassium [Moles/Vol] 4.6 mmol/L Normal 3.5-5.[address] [facility] Comment on above: Performed By: #### L 506.1000, L100.0100, L500.4050 #### [facility] [address] [place], [address] Sodium [Moles/Vol] 134 mmol/L Low 136-145 [facility] Comment on above: Performed By: #### L 506.1000, L100.0100, L500.4050 #### [facility] [address] [place], [address] T PROT 7.4 g/dL Normal 6.4-8.[address] [facility] Comment on above: Performed By: #### L 506.1000, L100.0100, L500.4050 #### [facility] [address] [place], [address] Urea nitrogen [Mass/Vol] 11 mg/dL Normal 7-[address] [facility] Comment on above: Performed By: #### L 506.1000, L100.0100, L500.4050 #### [facility] [address] [place], [address] Internal Medicine Office Vis iton 11-04-2023 Internal Medicine Office Visit [facility] [address] [place] [address] OFFICE VISIT Date of Service: 11/04/23 MR#: [id number] Acct: [id number] Name: CONNIE GREENBERG Rep #: [id number] : 1960 Provider: Dr. Lee gallo MD Age/Sex: 63/F Location: [facility] Status: Signed Intake Vital Signs 08/02/23 10:01 09/26/23 13:52 11/04/23 10:41 Height 5 ft 2 in 5 ft 2 in 5 ft 2 in Weight: 175 lb BMI 32.0 BP 116/78 Blood Pressure Location Lt brachial Position Sitting Respiration 18 Pulse 68 Pulse Source Monitor Temp 97.3 F L Temp Source Temporal Pulse Oximetry (%) 98 Oxygen Delivery Method room air Intake Visit Reasons: 3 M FU Chief Complaint: FU Chronic conditions. 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: No Is patient in pain?: No Allergies bee venom protein (honey bee) Allergy (Mild, Verified 11/04/23 10:35) SWELLING/ SOB Medications ???Medication ???Instructions ???Recorded ???Confirmed ???Type albuterol sulfate 90 mcg/actuation 2 puff inhalation Q4H PRN PRN Sob 12/26/16 11/04/23 History aerosol inhaler /Or Wheezing cholecalciferol (vitamin D3) 125 5,000 unit PO DAILY vitamin 12/26/16 11/04/23 History mcg (5,000 unit) disintegrating tablet cyanocobalamin (vitamin B-12) 500 500 mcg PO DAILY vitamin 12/26/16 11/04/23 History mcg tablet aspirin 81 mg chewable tablet 81 mg PO DAILY@0800 blood thinner 12/27/16 11/04/23 Rx flhqricn-wdhc-idhdq acid 240 1 tab PO DAILY vitamin 03/07/20 11/04/23 History mcg-vit K 120 oqu-cocsfn-bxlh 293 tablet (Alive Women's 50 Plus (fruit-veg blend)) pyridoxine (vitamin B6) 100 mg 100 mg PO DAILY vitamin 04/01/20 11/04/23 History tablet oxybutynin chloride 15 mg 30 mg PO DAILY bladder 04/17/22 11/04/23 History tablet,extended release 24 hr magnesium 200 mg tablet 400 mg PO QHS vitamin 09/13/22 11/04/23 History famotidine 20 mg tablet mg PO DAILY 03/19/23 11/04/23 History fluticasone furoate 100 inhalation 03/19/23 11/04/23 History mcg-vilanterol 25 mcg/dose inhalation powder (Breo Ellipta) prazosin 1 mg capsule 1 mg PO QHS nightmares 30 days #30 07/01/23 11/04/23 Rx caps cetirizine 10 mg capsule (Zyrtec) 10 mg PO DAILY PRN 08/02/23 11/04/23 History coffee extract 100 mg-phosphatidyl cap PO 08/02/23 11/04/23 History serine 100 mg capsule (Neuriva Original) d-mannose 500 mg capsule (AZO mg PO 08/02/23 11/04/23 History D-Mannose) estradiol 0.01% (0.1 mg/gram) 1 g vaginal 2XW hormone #42.5 grams 08/02/23 11/04/23 Rx vaginal cream (Estrace) ferrous sulfate 325 mg (65 mg 325 mg PO DAILY 08/02/23 11/04/23 History iron) tablet (Feosol) montelukast 10 mg tablet 10 mg PO DAILY asthma #90 tabs 08/02/23 11/04/23 Rx selenium 200 mcg capsule 200 mcg PO DAILY 08/02/23 11/04/23 History buspirone 15 mg tablet 15 mg PO TID 30 days #90 tabs 09/26/23 11/04/23 Rx escitalopram oxalate 10 mg tablet 10 mg PO DAILY depression #30 tabs 09/26/23 11/04/23 Rx lamotrigine 200 mg tablet 200 mg PO QHS seizure 30 days #30 09/26/23 11/04/23 Rx tabs olanzapine 5 mg tablet 5 mg PO QHS bipolar #30 tabs 09/26/23 11/04/23 Rx naltrexone 50 mg tablet 50 mg PO DAILY #30 tabs 11/01/23 11/04/23 Rx lisinopril 20 mg tablet 20 mg PO DAILY bp #90 tabs 11/04/23 11/04/23 Rx omeprazole 40 mg capsule,delayed 40 mg PO BID stomach #180 caps 11/04/23 11/04/23 Rx release pyridoxine (vitamin B6) 100 mg 100 mg PO QDAY 11/04/23 11/04/23 History tablet riboflavin (vitamin B2) 100 mg 100 mg PO QDAY 11/04/23 11/04/23 History tablet simvastatin 20 mg tablet 20 mg PO QHS hld #90 tabs 11/04/23 11/04/23 Rx PFSH Medical History (Updated 11/04/23 @ 12:[address] Lee Garcia MD) CHIQUI (obstructive sleep apnea) Migraine Obesity (BMI 30.0-34.9) Murmur Osteopenia Fatigue Health care maintenance Right otitis media with effusion Alcohol use disorder, severe, in early remission Chronic headache Low libido Dermatitis, contact Sinusitis Bipolar II disorder Overweight (BMI 25.0-29.9) Screening for STD (sexually transmitted disease) Insomnia Flu vaccine need Bee sting reaction Difficulty swallowing solids Hyponatremia Dizziness Vaginal atrophy OAB (overactive bladder) Memory impairment Sciatica Hernia History of stroke IBS (irritable bowel syndrome) Hx of migraine headaches GI problem Emphysema lung COPD (chronic obstructive pulmonary disease) Back pain Anemia Arthritis Seasonal allergies Anxiety right scapular mass Lumbar radiculopathy Asthma Bipolar depression GERD (gastroesophageal reflux disease) Orthostatic hypotension Pericardial effusion (noninflammatory) Hypertension Hyperlipidemia Chronic pain Fibromyalgia CVA (cerebral vascular accident) Surgical History ... Normal [facility] Vitamin D,25 Hydroxyon 11-03 Vitamin D 25-OH 60.4 ng/mL Normal [facility] Comment on above: Result Comment: Xochilt min D 25(OH) Status Range Deficiency <20 ng/mL (50nmol/L) Insufficiency 20 - 30 ng/mL (50 - 75 nmol/L) Sufficiency 30 - 100 ng/mL (75 - 250 nmol/L) Toxicity >100 ng/mL (>250 nmol/L) Performed By: #### L 506.1000, L100.0100, L500.4050 ####[facility] [address] [place], [address] [facility] 10-21-2023 CNOV Office Visit (UCWSTR ) CONNIE GREENBERG ([id number]) 1960 F Date Time Provider Department 10/21/23 3:00 PM LOUISE MARADIAGA [facility] During your visit today, we recorded the following information about you: Temperature Pulse Respiration Blood pressure 97.4 degrees 76/minute 20/minute 118/70 Weight 79.8 kg Louise Maradiaga, PRACTICE MANAGER.CARTOGRAPHIC DESIGNER 10/21/2023 3:20 PM Signed Each of us has four paired cavities (spaces) in our head that are connected to the nose by narrow channels. These cavities, known as sinuses, produce a thin mucus that drains out of the channels of the nose. Normally, sinuses are filled with air. But when sinuses become blocked and filled with fluid, bacteria can grow and cause an infection (sinusitis). Conditions that cause sinus blockage include the common cold, allergic rhinitis (swelling of the lining of the nose due to allergies), nasal polyps (small growths in the lining of the nose), or deviated septum (a shift in the nasal cavity). Allergies such as hay fever can also cause swelling and poor drainage of the sinuses. If you have symptoms that involve the sinuses, it may be difficult to tell if you have sinusitis, a cold, or a nasal allergy. This article will describe the symptoms, diagnosis, and treatment of sinusitis, and how to distinguish sinusitis from a cold or nasal allergy. What is sinusitis? Sinusitis is an inflammation, or swelling, of the tissue lining the sinuses. There are two types of sinusitis: Acute sinusitis: a sudden onset of cold symptoms such as runny nose, stuffy nose, and facial pain that does not go away after 7-10 days. It responds well to antibiotics and decongestants. Chronic sinusitis: characterized by nasal congestion, drainage, facial pain/pressure, and decreased sense of smell for at least 12 weeks. Who gets sinusitis? About 37 million Americans suffer from at least one episode of sinusitis each year. People who have the following conditions have a higher risk of sinusitis: Nasal mucus membrane swelling, as from a common cold Blockage of drainage ducts Structure differences that narrow the drainage ducts Conditions that result in an increased risk of infection In children, common environmental factors that contribute to sinusitis include allergies, illness from other children at day care or school, pacifiers, bottle drinking while lying on the back, and smoke in the environment. In adults, the contributing factors are most frequently infections, allergies, and smoking. What are the signs and symptoms of acute sinusitis? The primary symptoms of acute sinusitis include: Facial pain/pressure Nasal stuffiness Nasal discharge Loss of smell Cough/congestion Additional symptoms may include: Fever Bad breath Fatigue Dental pain Acute sinusitis can last four weeks or more. This condition may be diagnosed when a person has two or more symptoms and/or the presence of thick, green, or yellow nasal discharge. What are the signs and symptoms of chronic sinusitis? People with chronic sinusitis may have the following symptoms for 12 weeks or more: Facial congestion/fullness A nasal obstruction/blockage Pus in the nasal cavity Fever Nasal discharge/discolored postnasal drainage Additional symptoms may include: Headaches Bad breath Fatigue Dental pain Thick nasal discharge How is sinusitis treated? Acute sinusitis. If you have a simple sinusitis infection, your health care provider may recommend treatment with decongestants like Sudafed and steam inhalations alone, as most sinusitis is viral. Antibiotics are generally needed for more seriously ill patients. If antibiotics are administered, they are given for 10 to 14 days. With treatment, the symptoms usually disappear and antibiotics are no longer required. Oral and topical decongestants may be prescribed to alleviate the symptoms. Use of prescription intranasal steroid sprays might be effective in controlling symptoms. However, non-prescription drops or sprays should not be used beyond their recommended period--usually four to five days--or they may actually increase congestion. Chronic sinusitis. Warm moist air may alleviate sinus congestion. Using a vaporizer or inhaling steam from a florez of boiling water (removed from heat) may also help. Warm compresses are useful to relieve pain in the nose and sinuses. Saline nose drops are also safe for home use. Nonprescription drops or sprays might be effective in controlling symptoms; however, they should not be used beyond their recommended period of time. Nasal steroid sprays that shrink swollen membranes of the nose are beneficial. Antibiotics may also be prescribed. Avoidance of triggers is important. Allergies should be controlled and irritants, such as smoke, should be avoided. Louise Maradiaga, MATTY.CARTOGRAPHIC DESIGNER 10/21/2023 3:54 PM Sign (more content not included)... Normal [facility] MR/BMS.BPon 09-26-2023 MR/BMS.BP [address], [address] [place] [address] OFFICE VISIT Date of Service: 09/26/23 MR#: [id number] Acct: [id number] Name: CONNIE GREENBERG Rep #: [id number] : 1960 Provider: Dr. Osvaldo Fung se, DO Age/Sex: 63/F Location: [facility] [place] [facility] Status: Signed Intake Vital Signs 07/01/23 13:05 08/02/23 10:01 09/26/23 13:32 09/26/23 13:52 Height 5 ft 2 in 5 ft 2 in 5 ft 2 in 5 ft 2 in Weight: 174 lb 6 oz BMI 31.8 BP 120/60 138/84 H Blood Pressure Location Lt brachial Rt brachial Position Sitting Sitting Respiration 18 Pulse 82 75 Pulse Source Monitor Monitor Temp 97.3 F L Pulse Oximetry (%) 97 Oxygen Delivery Method room air BP Intake Visit Reasons: 3 M FU 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: No Accompanied by: Self Allergies bee venom protein (honey bee) Allergy (Mild, Verified 09/26/23 13:53) SWELLING/ SOB Medications ???Medication ???Instructions ???Recorded ???Confirmed ???Type albuterol sulfate 90 mcg/actuation 2 puff inhalation Q4H PRN PRN Sob 12/26/16 09/26/23 History aerosol inhaler /Or Wheezing cholecalciferol (vitamin D3) 125 5,000 unit PO DAILY vitamin 12/26/16 09/26/23 History mcg (5,000 unit) disintegrating tablet cyanocobalamin (vitamin B-12) 500 500 mcg PO DAILY vitamin 12/26/16 09/26/23 History mcg tablet aspirin 81 mg chewable tablet 81 mg PO DAILY@0800 blood thinner 12/27/16 09/26/23 Rx ifjacawy-lyaq-adtcd acid 240 1 tab PO DAILY vitamin 03/07/20 09/26/23 History mcg-vit K 120 vft-fdtasp-fvrt 293 tablet (Alive Women's 50 Plus (fruit-veg blend)) pyridoxine (vitamin B6) 100 mg 100 mg PO DAILY vitamin 04/01/20 09/26/23 History tablet oxybutynin chloride 15 mg 30 mg PO DAILY bladder 04/17/22 09/26/23 History tablet,extended release 24 hr magnesium 200 mg tablet 400 mg PO QHS vitamin 09/13/22 09/26/23 History famotidine 20 mg tablet mg PO DAILY 03/19/23 09/26/23 History fluticasone furoate 100 inhalation 03/19/23 09/26/23 History mcg-vilanterol 25 mcg/dose inhalation powder (Breo Ellipta) naltrexone 50 mg tablet 50 mg PO DAILY #30 tabs 07/01/23 09/26/23 Rx prazosin 1 mg capsule 1 mg PO QHS nightmares 30 days #30 07/01/23 09/26/23 Rx caps cetirizine 10 mg capsule (Zyrtec) 10 mg PO DAILY PRN 08/02/23 09/26/23 History coffee extract 100 mg-phosphatidyl cap PO 08/02/23 09/26/23 History serine 100 mg capsule (Neuriva Original) d-mannose 500 mg capsule (AZO mg PO 08/02/23 09/26/23 History D-Mannose) estradiol 0.01% (0.1 mg/gram) 1 g vaginal 2XW hormone #42.5 grams 08/02/23 09/26/23 Rx vaginal cream (Estrace) ferrous sulfate 325 mg (65 mg 325 mg PO DAILY 08/02/23 09/26/23 History iron) tablet (Feosol) lisinopril 20 mg tablet 20 mg PO DAILY bp #90 tabs 08/02/23 09/26/23 Rx montelukast 10 mg tablet 10 mg PO DAILY asthma #90 tabs 08/02/23 09/26/23 Rx omeprazole 40 mg capsule,delayed 40 mg PO BID stomach #180 caps 08/02/23 09/26/23 Rx release selenium 200 mcg capsule 200 mcg PO DAILY 08/02/23 09/26/23 History simvastatin 20 mg tablet 20 mg PO QHS hld #90 tabs 08/02/23 09/26/23 Rx buspirone 15 mg tablet 15 mg PO TID 30 days #90 tabs 09/26/23 09/26/23 Rx escitalopram oxalate 10 mg tablet 10 mg PO DAILY depression #30 tabs 09/26/23 09/26/23 Rx lamotrigine 200 mg tablet 200 mg PO QHS seizure 30 days #30 09/26/23 09/26/23 Rx tabs olanzapine 5 mg tablet 5 mg PO QHS bipolar #30 tabs 09/26/23 09/26/23 Rx Current gender identity: female Nurse's Note: Presents to the office today for follow up. [facility] Medical History Osteopenia Fatigue Health care maintenance Right otitis media with effusion Alcohol use disorder, severe, in early remission Chronic headache Low libido Dermatitis, contact Sinusitis Bipolar II disorder Overweight (BMI 25.0-29.9) Screening for STD (sexually transmitted disease) Insomnia Flu vaccine need Bee sting reaction Difficulty swallowing solids Hyponatremia Dizziness Vaginal atrophy OAB (overactive bladder) Memory impairment Sciatica Hernia History of stroke IBS (irritable bowel syndrome) Hx of migraine headaches GI problem Emphysema lung COPD (chronic obstructive pulmonary disease) Back pain Anemia Arthritis Seasonal allergies Anxiety right scapular mass Lumbar radiculopathy Asthma Bipolar depression CHIQUI (obstructive sleep apnea) GERD (gastroesophageal reflux disease) Orthostatic hypotension Pericardial effusion (noninflammatory) Hypertension Hyperlipidemia Chronic pain Fibromyalgia CVA (cerebral vascular accident) Surgical History H/O laparoscopy Hx of breast biopsy History of total hysterectomy Family History (more content not included)... Normal [facility] CBC W/Diff, Automatedon 07-13 Absolute Lymph 1.20 X10 3/uL Normal 0.83-4.[address] [facility] Comment on above: Performed By: #### L 501.9520, L500.4050, L100.0100, L506.0400 ####[facility] [address] [place], [address] Absolute Neut 4.1 X10 3/uL Normal 2.0-7.[address] [facility] Comment on above: Performed By: #### L 501.9520, L500.4050, L100.0100, L506.0400 ####[facility] [address] [place], [address] Basophils/100 WBC (Bld) 0.2 % Normal 0-[address] [facility] Comment on above: Performed By: #### L 501.9520, L500.4050, L100.0100, L506.0400 ####[facility] [address] [place], [address] Eosinophils/100 WBC (Bld) 0.3 % Normal 0-[address] [facility] Comment on above: Performed By: #### L 501.9520, L500.4050, L100.0100, L506.0400 ####[facility] [address] [place], [address] Erythrocyte distribution width (RBC) [Ratio] 13.2 % Normal 11.6-14.[address] [facility] Comment on above: Performed By: #### L 501.9520, L500.4050, L100.0100, L506.0400 ####[facility] [address] [place], [address] Hematocrit (Bld) [Volume fraction] 36.4 % Low 37-[address] [facility] Comment on above: Performed By: #### L 501.9520, L500.4050, L100.0100, L506.0400 ####[facility] [address] [place], [address] Hemoglobin (Bld) [Mass/Vol] 11.7 g/dL Low 12.0-15.[address] [facility] Comment on above: Performed By: #### L 501.9520, L500.4050, L100.0100, L506.0400 ####[facility] [address] [place], [address] IG% 0.500 Normal 0.0-0.[address] [facility] Comment on above: Result Comment: IG% - Immature Granulocytes (promyelocytes, myelocytes and metamyelocytes) > 1% indicates that a LEFT SHIFT is Present. Performed By: #### L 501.9520, L500.4050, L100.0100, L506.0400 ####[facility] [address] [place], [address] Lymphocytes/100 WBC (Bld) 20.7 % Normal 19-[address] [facility] Comment on above: Performed By: #### L 501.9520, L500.4050, L100.0100, L506.0400 ####[facility] [address] [place], [address] MCH (RBC) [Entitic mass] 30.1 pg Normal 27.0-32.[address] [facility] Comment on above: Performed By: #### L 501.9520, L500.4050, L100.0100, L506.0400 ####[facility] [address] [place], [address] MCHC (RBC) [Mass/Vol] 32.1 g/dL Normal 32-[address] [facility] Comment on above: Performed By: #### L 501.9520, L500.4050, L100.0100, L506.0400 ####[facility] [address] [place], [address] MCV (RBC) [Entitic vol] 93.6 fL Normal 81-[address] [facility] Comment on above: Performed By: #### L 501.9520, L500.4050, L100.0100, L506.0400 ####[facility] [address] [place], [address] Monocytes/100 WBC (Bld) 8.3 % Normal 0-[address] [facility] Comment on above: Performed By: #### L 501.9520, L500.4050, L100.0100, L506.0400 ####[facility] [address] [place], [address] Neutrophils/100 WBC (Bld) 70.0 % Normal 47-[address] [facility] Comment on above: Performed By: #### L 501.9520, L500.4050, L100.0100, L506.0400 ####[facility] [address] [place], [address] Nucleated RBC (Bld) [#/Vol] 0 10*3/uL Normal 0-[address] [facility] Comment on above: Performed By: #### L 501.9520, L500.4050, L100.0100, L506.0400 ####[facility] [address] [place], [address] Platelet mean volume (Bld) [Entitic vol] 10.0 fL Normal 6.2-12.[address] [facility] Comment on above: Performed By: #### L 501.9520, L500.4050, L100.0100, L506.0400 ####[facility] [address] [place], [address] Platelets (Bld) [#/Vol] 263 10*3/uL Normal 150-[address] [facility] Comment on above: Performed By: #### L 501.9520, L500.4050, L100.0100, L506.0400 ####[facility] [address] [place], [address] RBC (Bld) [#/Vol] 3.89 10*6/uL Low 4.2-5.4 [facility] Comment on above: Performed By: #### L 501.9520, L500.4050, L100.0100, L506.0400 ####[facility] [address] [place], [address] RDW SD 45.1 fl High 35.1-43.[address] [facility] Comment on above: Performed By: #### L 501.9520, L500.4050, L100.0100, L506.0400 ####[facility] [address] [place], [address] WBC (Bld) [#/Vol] 5.8 10*3/uL Normal 4.4-11.0 [facility] Comment on above: Performed By: #### L 501.9520, L500.4050, L100.0100, L506.0400 ####[facility] [address] [place], [address] Comprehensive Metabolic [facility] 08-02-2023 Albumin [Mass/Vol] 3.7 g/dL Normal 3.2-5.0 [facility] Comment on above: Performed By: #### L 501.9520, L500.4050, L100.0100, L506.0400 ####[facility] [address] [place], [address] Albumin/Globulin [Mass ratio] 1.0 {ratio} Normal 0.9-2.[address] [facility] Comment on above: Performed By: #### L 501.9520, L500.4050, L100.0100, L506.0400 ####[facility] [address] [place], [address] ALK P 144 U/L High 45-[address] [facility] Comment on above: Performed By: #### L 501.9520, L500.4050, L100.0100, L506.0400 ####[facility] [address] [place], [address] ALT [Catalytic activity/Vol] 29 U/L Normal 13-[address] [facility] Comment on above: Performed By: #### L 501.9520, L500.4050, L100.0100, L506.0400 ####[facility] [address] [place], [address] AST [Catalytic activity/Vol] 16 U/L Normal 15-[address] [facility] Comment on above: Performed By: #### L 501.9520, L500.4050, L100.0100, L506.0400 ####[facility] [address] [place], [address] Bilirubin [Mass/Vol] 0.50 mg/dL Normal 0.20-1.00 [facility] Comment on above: Result Comment: For patients on eltrombopag therapy, use of Dimension [place] TBIL is not recommended. Performed By: #### L 501.9520, L500.4050, L100.0100, L506.0400 ####[facility] [address] [place], [address] BUN/CRE 25.7 RATIO High 10-[address] [facility] Comment on above: Performed By: #### L 501.9520, L500.4050, L100.0100, L506.0400 ####[facility] [address], [address] CA,Total 9.0 mg/dL Normal 8.5-10.[address] [facility] Comment on above: Performed By: #### L 501.9520, L500.4050, L100.0100, L506.0400 ####[facility] [address] [place], [address] Chloride [Moles/Vol] 103 mmol/L Normal 98-107 [facility] Comment on above: Performed By: #### L 501.9520, L500.4050, L100.0100, L506.0400 ####[facility] [address] [place], [address] CO2 [Moles/Vol] 24.0 mmol/L Normal 21.0-32.[address] [facility] Comment on above: Performed By: #### L 501.9520, L500.4050, L100.0100, L506.0400 ####[facility] [address] [place], [address] Creatinine [Mass/Vol] 0.78 mg/dL Normal 0.55-1.[address] [facility] Comment on above: Result Comment: The validity of the calculated GFR GFRAA in patients over 70 years has not been determined. Clinical correlation is essential. Performed By: #### L 501.9520, L500.4050, L100.0100, L506.0400 ####[facility] [address] [place], [address] EST GFR - AA 97 mL/min Normal >[address] [facility] Comment on above: Result Comment: Afri can [place] GFR Calc Performed By: #### L 501.9520, L500.4050, L100.0100, L506.0400 ####[facility] [address] [place], [address] GAP 10 Normal 5-[address] [facility] Comment on above: Performed By: #### L 501.9520, L500.4050, L100.0100, L506.0400 ####[facility] [address] [place], [address] GFR/1.73 sq M.predicted among non-blacks MDRD (S/P/Bld) [Vol rate/Area] 80 mL/min/{1.73_m2} Normal >[address] [facility] Comment on above: Result Comment: Non- GFR Calc Performed By: #### L 501.9520, L500.4050, L100.0100, L506.0400 ####[facility] [address] [place], [address] Globulin (S) [Mass/Vol] 3.7 g/dL Normal 2.2-4.[address] [facility] Comment on above: Performed By: #### L 501.9520, L500.4050, L100.0100, L506.0400 ####[facility] [address] [place], [address] Glucose [Mass/Vol] 118 mg/dL High 74-106 [facility] Comment on above: Result Comment: Fast ing Glucose result from 100 to 125 mg/dL suggests IMPAIRED HOMEOSTASIS per A.D.A. criteria. Performed By: #### L 501.9520, L500.4050, L100.0100, L506.0400 ####[facility] [address] [place], [address] Potassium [Moles/Vol] 4.0 mmol/L Normal 3.5-5.[address] [facility] Comment on above: Performed By: #### L 501.9520, L500.4050, L100.0100, L506.0400 ####[facility] [address] [place], [address] Sodium [Moles/Vol] 137 mmol/L Normal 136-145 [facility] Comment on above: Performed By: #### L 501.9520, L500.4050, L100.0100, L506.0400 ####[facility] [address] [place], [address] T PROT 7.4 g/dL Normal 6.4-8.[address] [facility] Comment on above: Performed By: #### L 501.9520, L500.4050, L100.0100, L506.0400 ####[facility] [address] [place], [address] Urea nitrogen [Mass/Vol] 20 mg/dL High 7-18 [facility] Comment on above: Performed By: #### L 501.9520, L500.4050, L100.0100, L506.0400 ####[facility] [address] [place], [address] Internal Medicine Office Vis iton 08-02-2023 Internal Medicine Office Visit [facility] [address] [place] [address] [place] [address] OFFICE VISIT Date of Service: 08/02/23 MR#: [id number] Acct: [id number] Name: CONNIE GREENBERG Rep #: [id number] : 1960 Provider: Dr. Lee gallo MD Age/Sex: 63/F Location: [facility] [place] Status: Signed Intake Vital Signs 04/01/23 10:33 07/01/23 13:05 08/02/23 10:01 Height 5 ft 2 in 5 ft 2 in 5 ft 2 in Weight: 174 lb 6 oz BMI 31.8 BP 120/60 Blood Pressure Location Lt brachial Position Sitting Respiration 18 Pulse 82 Pulse Source Monitor Temp 97.3 F L Temp Source Temporal Pulse Oximetry (%) 97 Oxygen Delivery Method room air Intake Visit Reasons: 4 M FU Chief Complaint: FU Chronic conditions. 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: No Accompanied by: Self Is patient in pain?: No Allergies bee venom protein (honey bee) Allergy (Mild, Verified 08/02/23 09:52) SWELLING/ SOB Medications ???Medication ???Instructions ???Recorded ???Confirmed ???Type albuterol sulfate 90 mcg/actuation 2 puff inhalation Q4H PRN PRN Sob 12/26/16 08/02/23 History aerosol inhaler /Or Wheezing cholecalciferol (vitamin D3) 125 5,000 unit PO DAILY vitamin 12/26/16 08/02/23 History mcg (5,000 unit) disintegrating tablet cyanocobalamin (vitamin B-12) 500 500 mcg PO DAILY vitamin 12/26/16 08/02/23 History mcg tablet aspirin 81 mg chewable tablet 81 mg PO DAILY@0800 blood thinner 12/27/16 08/02/23 Rx psholbmw-bvbp-zggqf acid 240 1 tab PO DAILY vitamin 03/07/20 08/02/23 History mcg-vit K 120 czs-idnwho-lxiy 293 tablet (Alive Women's 50 Plus (fruit-veg blend)) pyridoxine (vitamin B6) 100 mg 100 mg PO DAILY vitamin 04/01/20 08/02/23 History tablet oxybutynin chloride 15 mg 30 mg PO DAILY bladder 04/17/22 07/01/23 History tablet,extended release 24 hr magnesium 200 mg tablet 400 mg PO QHS vitamin 09/13/22 08/02/23 History famotidine 20 mg tablet mg PO DAILY 03/19/23 08/02/23 History fluticasone furoate 100 inhalation 03/19/23 08/02/23 History mcg-vilanterol 25 mcg/dose inhalation powder (Breo Ellipta) buspirone 15 mg tablet 15 mg PO TID 30 days #90 tabs 07/01/23 08/02/23 Rx escitalopram oxalate 10 mg tablet 10 mg PO DAILY depression #30 tabs 07/01/23 08/02/23 Rx lamotrigine 200 mg tablet 200 mg PO QHS seizure 30 days #30 07/01/23 08/02/23 Rx tabs naltrexone 50 mg tablet 50 mg PO DAILY #30 tabs 07/01/23 08/02/23 Rx olanzapine 10 mg tablet 10 mg PO QHS bipolar #30 tabs 07/01/23 08/02/23 Rx prazosin 1 mg capsule 1 mg PO QHS nightmares 30 days #30 07/01/23 08/02/23 Rx caps cetirizine 10 mg capsule (Zyrtec) 10 mg PO DAILY PRN 08/02/23 08/02/23 History coffee extract 100 mg-phosphatidyl cap PO 08/02/23 08/02/23 History serine 100 mg capsule (Neuriva Original) d-mannose 500 mg capsule (AZO mg PO 08/02/23 08/02/23 History D-Mannose) estradiol 0.01% (0.1 mg/gram) 1 g vaginal 2XW hormone #42.5 grams 08/02/23 08/02/23 Rx vaginal cream (Estrace) ferrous sulfate 325 mg (65 mg 325 mg PO DAILY 08/02/23 08/02/23 History iron) tablet (Feosol) lisinopril 20 mg tablet 20 mg PO DAILY bp #90 tabs 08/02/23 08/02/23 Rx montelukast 10 mg tablet 10 mg PO DAILY asthma #90 tabs 08/02/23 08/02/23 Rx omeprazole 40 mg capsule,delayed 40 mg PO BID stomach #180 caps 08/02/23 08/02/23 Rx release selenium 200 mcg capsule 200 mcg PO DAILY 08/02/23 08/02/23 History simvastatin 20 mg tablet 20 mg PO QHS hld #90 tabs 08/02/23 08/02/23 Rx PFSH Medical History (Updated 08/02/23 @ 12:[address] Lee Garcia MD) Osteopenia Fatigue Health care maintenance Right otitis media with effusion Alcohol use disorder, severe, in early remission Chronic headache Low libido Dermatitis, contact Sinusitis Bipolar II disorder Overweight (BMI 25.0-29.9) Screening for STD (sexually transmitted disease) Insomnia Flu vaccine need Bee sting reaction Difficulty swallowing solids Hyponatremia Dizziness Vaginal atrophy OAB (overactive bladder) Memory impairment Sciatica Hernia History of stroke IBS (irritable bowel syndrome) Hx of migraine headaches GI problem Emphysema lung COPD (chronic obstructive pulmonary disease) Back pain Anemia Arthritis Seasonal allergies Anxiety right scapular mass Lumbar radiculopathy Asthma Bipolar depression CHIQUI (obstructive sleep apnea) GERD (gastroesophageal reflux disease) Orthostatic hypotension Pericardial effusion (noninflammatory) Hypertension Hyperlipidemia Chronic pain Fibromyalgia CVA (cerebral vascular accident) Surgical History H/O laparoscopy Hx of breast biopsy History of total hysterectomy Family History Unknown Past medical history not known due (more content not included)... Normal [facility] T4 Free Directon 08-02-2023 T4 FREE DIRECT 0.97 ng/dL Normal 0.76-1.[address] [facility] Comment on above: Performed By: #### L 501.6520, L500.4050, L100.0100, L506.0400 ####[facility] [address] [place], [address] Thyroid Stim Hormone (TSH)on 08-02-2023 TSH 2.05 uIU/mL Normal 0.358-3.[address] [facility] Comment on above: Performed By: #### L 501.9520, L500.4050, L100.0100, L506.0400 ####[facility] [address] [place], [address] COVID & INFLUENZA A/B & RSV NAAT, ROUTINEon 04-28-2023 FLUAV RNA WILMER+probe Ql (Unsp spec) Not detected Not Detected [facility] FLUBV RNA WILMER+probe Ql (Unsp spec) Not detected Not Detected [facility] RSV A RNA WILMER+probe Ql (Unsp spec) Not detected Not Detected [facility] SARS-CoV-2 (COVID-19) RNA WILMER+probe Ql (Resp) Not detected See comment [facility] .Auto Diffon 01-16-2023 Basophil, Absolute 0.0 10 3/mcL Normal 0.0-0.3 [facility] ([place]) Comment on above: Performed By: #### A AMADOU OWENS MDW, TROPHS, CBC, ADIFF, GFR #### [address] [address] Basophils/100 WBC (Bld) 0.0 % Normal 0.0-2.5 [facility] ([place]) Comment on above: Performed By: #### A AMADOU OWENS MDW, TROPHS, CBC, ADIFF, GFR #### [address] [address] Eosinophil, Absolute 0.1 10 3/mcL Normal 0.0-0.7 [facility] ([place]) Comment on above: Performed By: #### A AMADOU OWENS MDW, TROPHS, CBC, ADIFF, GFR #### [address] [address] Eosinophils/100 WBC (Bld) 1.3 % Normal 0.0-6.0 [facility] ([place]) Comment on above: Performed By: #### A AMADOU OWENS, WILLIE, TROPHS, CBC, ADIFF, GFR #### [address] [address] Lymphocyte, Absolute 1.5 10 3/mcL Normal 0.9-4.3 [facility] ([place]) Comment on above: Performed By: #### A AMADOU OWENS, W, TROPHS, CBC, ADIFF, GFR #### [address] [address] Lymphocytes/100 WBC (Bld) 18.5 % Low 20.0-40.0 [facility] ([place]) Comment on above: Performed By: #### A GRACIELA, AMADOU, W, TROPHS, CBC, ADIFF, GFR #### [address] [address] Monocyte, Absolute 0.7 10 3/mcL Normal 0.1-1.4 [facility] ([place]) Comment on above: Performed By: #### A GRACIELA, AMADOU, W, TROPHS, CBC, ADIFF, GFR #### [address] [address] Monocytes/100 WBC (Bld) 8.8 % Normal 2.0-13.0 [facility] ([place]) Comment on above: Performed By: #### A GRACIELA, AMADOU, W, TROPHS, CBC, ADIFF, GFR #### [address] [address] Neutrophils/100 WBC (Bld) 71.4 % Normal 50.0-75.0 [facility] ([place]) Comment on above: Performed By: #### A GRACIELA, AMADOU, MDW, TROPHS, CBC, ADIFF, GFR #### [address] [address] .GFRon 01-16-2023 GFR Non- >60 Normal [facility] ([place]) Comment on above: Result Comment: GFR Population mean for , Non- Americans Ages 20-29 = 116 mL/min/1.73 sq.m. Ages 30-39 = 107 mL/min/1.73 sq.m. Ages 40-49 = 99 mL/min/1.73 sq.m. Ages 50-59 = 93 mL/min/1.73 sq.m. Ages 60-69 = 85 mL/min/1.73 sq.m. Ages 70+ = 75 mL/min/1.73 sq.m. Chronic Kidney Disease: Less than 60 mL/min/1.73 square meters End Stage Renal Disease: Less than 15 mL/min/1.73 square meters Performed By: #### C BC, GFR, ANEU, ADIFF, BMP #### [place] [address] GFR >60 Normal [facility] ([place]) Comment on above: Result Comment: GFR Population mean for , Non- Americans Ages 20-29 = 116 mL/min/1.73 sq.m. Ages 30-39 = 107 mL/min/1.73 sq.m. Ages 40-49 = 99 mL/min/1.73 sq.m. Ages 50-59 = 93 mL/min/1.73 sq.m. Ages 60-69 = 85 mL/min/1.73 sq.m. Ages 70+ = 75 mL/min/1.73 sq.m. Chronic Kidney Disease: Less than 60 mL/min/1.73 square meters End Stage Renal Disease: Less than 15 mL/min/1.73 square meters Performed By: #### C BC, GFR, ANEU, ADIFF, BMP #### [place] [address] .MDWon 01-16-2023 Monocyte Distribution Width 15.71 Normal 0.00-20.00 [facility] ([place]) Comment on above: Result Comment: For ED adult patients suspected of sepsis, MDW<=20.0 does not rule out sepsis or risk of sepsis Performed By: #### A GRACIELA, BMP, MDW, TROPHS, CBC, ADIFF, GFR #### [place] [address] .NEUABSon 01-16-2023 Neutrophil, Absolute 5.7 10 3/mcL Normal 2.3-8.1 [facility] ([place]) Comment on above: Performed By: #### A GRACIELA, BMP, MDW, TROPHS, CBC, ADIFF, GFR #### [place] [address] BMPon 01-16-2023 BUN/Creatinine Ratio 10.9 ratio Normal 10.0-22.0 [facility] ([place]) Comment on above: Performed By: #### C BC, GFR, ANEU, ADIFF, BMP #### [address] [address] Calcium [Mass/Vol] 8.7 mg/dL Normal 8.7-10.4 [facility] ([place]) Comment on above: Performed By: #### C BC, GFR, ANEU, ADIFF, BMP #### [address] [address] Chloride [Moles/Vol] 104 mmol/L Normal 98-110 [facility] ([place]) Comment on above: Performed By: #### C BC, GFR, ANEU, ADIFF, BMP #### [address] [address] CO2 [Moles/Vol] 24 mmol/L Normal 22-32 [facility] ([place]) Comment on above: Performed By: #### C BC, GFR, ANEU, ADIFF, BMP #### [address] [address] Creatinine [Mass/Vol] 0.64 mg/dL Normal 0.50-1.20 [facility] ([place]) Comment on above: Performed By: #### C BC, GFR, ANEU, ADIFF, BMP #### [address] [address] Electrolyte Balance 5.0 mEq/L Normal 4.0-15.0 [facility] ([place]) Comment on above: Performed By: #### C BC, GFR, ANEU, ADIFF, BMP #### [address] [address] Glucose [Mass/Vol] 91 mg/dL Normal 82-115 [facility] ([place]) Comment on above: Performed By: #### C BC, GFR, ANEU, ADIFF, BMP #### [address] [address] Potassium [Moles/Vol] 4.8 mmol/L Normal 3.5-5.0 [facility] ([place]) Comment on above: Performed By: #### C BC, GFR, ANEU, ADIFF, BMP #### [address] [address] Sodium [Moles/Vol] 133 mmol/L Low 136-145 [facility] ([place]) Comment on above: Performed By: #### C BC, GFR, ANEU, ADIFF, BMP #### [place] [address] Urea nitrogen [Mass/Vol] 7.0 mg/dL Low 8.0-22.0 [facility] ([place]) Comment on above: Performed By: #### C BC, GFR, ANEU, ADIFF, BMP #### [place] [address] CBCon 01-16-2023 Erythrocyte distribution width (RBC) [Ratio] 13.3 % Normal 11.5-15.5 [facility] ([place]) Comment on above: Performed By: #### A GRACIELA, BMP, MDW, TROPHS, CBC, ADIFF, GFR #### [place] [address] Hematocrit (Bld) [Volume fraction] 34.4 % Normal 34.0-46.0 [facility] ([place]) Comment on above: Performed By: #### A GRACIELA, BMP, MDW, TROPHS, CBC, ADIFF, GFR #### [place] [address] Hgb 11.5 G/dL Low 12.0-16.0 [facility] ([place]) Comment on above: Performed By: #### A GRACIELA, BMP, MDW, TROPHS, CBC, ADIFF, GFR #### [place] [address] MCH (RBC) [Entitic mass] 29.4 pg Normal 27.0-33.0 [facility] ([place]) Comment on above: Performed By: #### A GRACIELA, BMP, MDW, TROPHS, CBC, ADIFF, GFR #### [place] [address] MCHC 33.3 G/dL Normal 32.0-36.0 [facility] ([place]) Comment on above: Performed By: #### A GRACIELA, BMP, MDW, TROPHS, CBC, ADIFF, GFR #### [place] [address] MCV (RBC) [Entitic vol] 88.2 fL Normal 80.0-99.0 [facility] ([place]) Comment on above: Performed By: #### A AMADOU OWENS MDW, TROPHS, CBC, ADIFF, GFR #### [place] [address] Platelet 418 10 3/mcL Normal 150-450 [facility] ([place]) Comment on above: Performed By: #### A GRACIELA, AMADOU, W, TROPHS, CBC, ADIFF, GFR #### [place] [address] Platelet mean volume (Bld) [Entitic vol] 6.8 fL Normal 6.6-10.5 [facility] ([place]) Comment on above: Performed By: #### A AMADOU OWENS, WILLIE, TROPHS, CBC, ADIFF, GFR #### [place] [address] RBC 3.90 10 6/mcL Low 4.10-5.30 [facility] ([place]) Comment on above: Performed By: #### A GRACIELA, AMADOU, WILLIE, TROPHS, CBC, ADIFF, GFR #### [place] [address] WBC 7.9 10 3/mcL Normal 4.5-10.8 [facility] ([place]) Comment on above: Performed By: #### A GRACIELA, AMADOU, W, TROPHS, CBC, ADIFF, GFR #### [place] [address] CT HEAD OR BRAIN W/O CONTRAS Ton 01-16-2023 CT HEAD OR BRAIN W/O CONTRAST ORIGINAL EXAMINATION: CT OF THE HEAD WITHOUT [...] Date: 01/16/2023 4:14:18 PM Ordering Provider: ARYA Smith [facility] ([place]) LABORATORYOrdered By: SYSTEM SYSTEM on 01-16-2023 Basophils (Bld) [#/Vol] 0.0 103/mcL Normal 0.0 - 0.3 10^3/mcL AH Workflow SS Basophils/100 WBC (Bld) 0.0 % Normal 0.0 - 2.5 % AH Workflow SS Calcium [Mass/Vol] 8.7 mg/dL Normal 8.7 - 10. 4 mg/dL ADM SS Chloride [Moles/Vol] 104 mmol/L Normal 98 - 110 mEq/L ADM SS CO2 [Moles/Vol] 24 mmol/L Normal 22 - 32 mEq/L ADM SS Creatinine [Mass/Vol] 0.64 mg/dL Normal 0.50 - 1.20 mg/dL AH ADM SS Electrolyte Balance 5.0 mEq/L Normal 4.0 - 15 .0 mEq/L ADM SS Eosinophils (Bld) [#/Vol] 0.1 103/mcL Normal 0.0 - 0.7 10^3/mcL AH Workflow SS Eosinophils/100 WBC (Bld) 1.3 % Normal 0.0 - 6.0 % AH Workflow SS Erythrocyte distribution width (RBC) [Ratio] 13.3 % Normal 11.5 - 15.5 % AH Workflow SS GFR/1.73 sq M.predicted among blacks MDRD (S/P/Bld) [Vol rate/Area] ml/min/1.73sqm Invalid Interpretation Code [facility] Comment on above: Interpretive Data: GFR Population mean for , Non- Americans Ages 20-29 = 116 mL/min/1.73 sq.m. Ages 30-39 = 107 mL/min/1.73 sq.m. Ages 40-49 = 99 mL/min/1.73 sq.m. Ages 50-59 = 93 mL/min/1.73 sq.m. Ages 60-69 = 85 mL/min/1.73 sq.m. Ages 70+ = 75 mL/min/1.73 sq.m. Chronic Kidney Disease: Less than 60 mL/min/1.73 square meters End Stage Renal Disease: Less than 15 mL/min/1.73 square meters GFR/1.73 sq M.predicted among non-blacks MDRD (S/P/Bld) [Vol rate/Area] ml/min/1.73sqm Invalid Interpretation Code [facility] Comment on above: Interpretive Data: GFR Population mean for , Non- Americans Ages 20-29 = 116 mL/min/1.73 sq.m. Ages 30-39 = 107 mL/min/1.73 sq.m. Ages 40-49 = 99 mL/min/1.73 sq.m. Ages 50-59 = 93 mL/min/1.73 sq.m. Ages 60-69 = 85 mL/min/1.73 sq.m. Ages 70+ = 75 mL/min/1.73 sq.m. Chronic Kidney Disease: Less than 60 mL/min/1.73 square meters End Stage Renal Disease: Less than 15 mL/min/1.73 square meters Glucose [Mass/Vol] 91 mg/dL Normal 82 - 115 mg/dL ADM SS Hematocrit (Bld) [Volume fraction] 34.4 % Normal 34.0 - 46.0 % Workflow SS Hemoglobin (Bld) [Mass/Vol] 11.5 G/dL Low 12.0 - 16.0 G/dL Workflow SS Lymphocytes (Bld) [#/Vol] 1.5 103/mcL Normal 0.9 - 4.3 10^3/mcL AH Workflow SS Lymphocytes/100 WBC (Bld) 18.5 % Low 20.0 - 40.0 % AH Workflow SS MCH (RBC) [Entitic mass] 29.4 pg Normal 27.0 - 33.0 pg AH Workflow SS MCHC 33.3 G/dL Normal 32.0 - 36.0 G/dL AH Workflow SS MCV (RBC) [Entitic vol] 88.2 fL Normal 80.0 - 99.0 fL AH Workflow SS Monocyte distribution width Auto (Bld) [Entitic vol] 15.71 1 Normal 0.00 - 20.00 AH Workflow SS Comment on above: Result Comment: For ED adult patients suspected of sepsis, MDW<=20.0 does not rule out sepsis or risk of sepsis Monocytes (Bld) [#/Vol] 0.7 103/mcL Normal 0.1 - 1.4 10^3/mcL AH Workflow SS Monocytes/100 WBC (Bld) 8.8 % Normal 2.0 - 13.0 % AH Workflow SS Neutrophils (Bld) [#/Vol] 5.7 103/mcL Normal 2.3 - 8.1 10^3/mcL AH Workflow SS Neutrophils/100 WBC (Bld) 71.4 % Normal 50.0 - 75.0 % AH Workflow SS Platelet mean volume (Bld) [Entitic vol] 6.8 fL Normal 6.6 - 10.5 fL AH Workflow SS Platelets (Bld) [#/Vol] 418 103/mcL Normal 150 - 450 10^3/mcL AH Workflow SS Potassium [Moles/Vol] 4.8 mmol/L Normal 3.5 - 5.0 mEq/L AH ADM SS RBC (Bld) [#/Vol] 3.90 106/mcL Low 4.10 - 5.3 0 10^6/mcL AH Workflow SS Sodium [Moles/Vol] 133 mmol/L Low 136 - 145 mEq/L AH ADM SS Troponin I.cardiac DL <= 0.01 ng/mL [Mass/Vol] ng/L Normal 0.00 - 34.00 ng/L AH ADM SS Urea nitrogen [Mass/Vol] 7.0 mg/dL Low 8.0 - 22.0 mg/dL AH ADM SS Urea nitrogen/Creatinine [Mass ratio] 10.9 ratio Normal 10.0 - 22.0 ratio AH ADM SS WBC (Bld) [#/Vol] 7.9 103/mcL Normal 4.5 - 10.8 10^3/mcL AH Workflow SS TROPHSon 01-16-2023 Troponin I High Sensitivity <2.50 Normal 0.00-34.00 [facility] ([place]) Comment on above: Performed By: #### C BC, GFR, ANEU, ADIFF, BMP #### [address] [address] .Auto Diffon 11-30-2022 Basophil, Absolute 0.0 10 3/mcL Normal 0.0-0.3 [facility] ([place]) Comment on above: Performed By: #### C BC, GFR, ANEU, ADIFF, BMP #### [address] [address] Basophils/100 WBC (Bld) 0.1 % Normal 0.0-2.5 [facility] ([place]) Comment on above: Performed By: #### C BC, GFR, ANEU, ADIFF, BMP #### [address] [address] Eosinophil, Absolute 0.3 10 3/mcL Normal 0.0-0.7 [facility] ([place]) Comment on above: Performed By: #### C BC, GFR, ANEU, ADIFF, BMP #### [address] [address] Eosinophils/100 WBC (Bld) 4.0 % Normal 0.0-6.0 [facility] ([place]) Comment on above: Performed By: #### C BC, GFR, ANEU, ADIFF, BMP #### [address] [address] Lymphocyte, Absolute 1.7 10 3/mcL Normal 0.9-4.3 [facility] ([place]) Comment on above: Performed By: #### C BC, GFR, ANEU, ADIFF, BMP #### [address] [address] Lymphocytes/100 WBC (Bld) 27.7 % Normal 20.0-40.0 [facility] ([place]) Comment on above: Performed By: #### C BC, GFR, ANEU, ADIFF, BMP #### [address] [address] Monocyte, Absolute 0.6 10 3/mcL Normal 0.1-1.4 [facility] ([place]) Comment on above: Performed By: #### C BC, GFR, ANEU, ADIFF, BMP #### [address] [address] Monocytes/100 WBC (Bld) 9.6 % Normal 2.0-13.0 [facility] ([place]) Comment on above: Performed By: #### C BC, GFR, ANEU, ADIFF, BMP #### [address] [address] Neutrophils/100 WBC (Bld) 58.6 % Normal 50.0-75.0 [facility] ([place]) Comment on above: Performed By: #### C BC, GFR, ANEU, ADIFF, BMP #### [address] [address] .GFRon 11-30-2022 GFR >60 Normal [facility] ([place]) Comment on above: Result Comment: GFR Population mean for , Non- Americans Ages 20-29 = 116 mL/min/1.73 sq.m. Ages 30-39 = 107 mL/min/1.73 sq.m. Ages 40-49 = 99 mL/min/1.73 sq.m. Ages 50-59 = 93 mL/min/1.73 sq.m. Ages 60-69 = 85 mL/min/1.73 sq.m. Ages 70+ = 75 mL/min/1.73 sq.m. Chronic Kidney Disease: Less than 60 mL/min/1.73 square meters End Stage Renal Disease: Less than 15 mL/min/1.73 square meters Performed By: #### C BC, GFR, ANEU, ADIFF, BMP #### [address] [address] GFR Non- >60 Normal [facility] ([place]) Comment on above: Result Comment: GFR Population mean for , Non- Americans Ages 20-29 = 116 mL/min/1.73 sq.m. Ages 30-39 = 107 mL/min/1.73 sq.m. Ages 40-49 = 99 mL/min/1.73 sq.m. Ages 50-59 = 93 mL/min/1.73 sq.m. Ages 60-69 = 85 mL/min/1.73 sq.m. Ages 70+ = 75 mL/min/1.73 sq.m. Chronic Kidney Disease: Less than 60 mL/min/1.73 square meters End Stage Renal Disease: Less than 15 mL/min/1.73 square meters Performed By: #### C BC, GFR, ANEU, ADIFF, BMP #### [address] [address] .NEUABSon 11-30-2022 Neutrophil, Absolute 3.7 10 3/mcL Normal 2.3-8.1 [facility] ([place]) Comment on above: Performed By: #### C BC, GFR, ANEU, ADIFF, BMP #### [address] [address] BMPon 11-30-2022 BUN/Creatinine Ratio 16.7 ratio Normal 10.0-22.0 [facility] ([place]) Comment on above: Performed By: #### C BC, GFR, ANEU, ADIFF, BMP #### [place] [address] Calcium [Mass/Vol] 9.1 mg/dL Normal 8.7-10.4 [facility] ([place]) Comment on above: Performed By: #### C BC, GFR, ANEU, ADIFF, BMP #### [address] [address] Chloride [Moles/Vol] 100 mmol/L Normal 98-110 [facility] ([place]) Comment on above: Performed By: #### C BC, GFR, ANEU, ADIFF, BMP #### [address] [address] CO2 [Moles/Vol] 27 mmol/L Normal 22-32 [facility] ([place]) Comment on above: Performed By: #### C BC, GFR, ANEU, ADIFF, BMP #### [place] [address] Creatinine [Mass/Vol] 0.72 mg/dL Normal 0.50-1.20 [facility] ([place]) Comment on above: Performed By: #### C BC, GFR, ANEU, ADIFF, BMP #### [place] [address] Electrolyte Balance 6.0 mEq/L Normal 4.0-15.0 [facility] ([place]) Comment on above: Performed By: #### C BC, GFR, ANEU, ADIFF, BMP #### [place] [id number] Glucose [Mass/Vol] 107 mg/dL Normal 82-115 [facility] ([place]) Comment on above: Performed By: #### C BC, GFR, ANEU, ADIFF, BMP #### [place] [address] Potassium [Moles/Vol] 4.0 mmol/L Normal 3.5-5.0 [facility] ([place]) Comment on above: Performed By: #### C BC, GFR, ANEU, ADIFF, BMP #### [place] [address] Sodium [Moles/Vol] 133 mmol/L Low 136-145 [facility] ([place]) Comment on above: Performed By: #### C BC, GFR, ANEU, ADIFF, BMP #### [place] [address] Urea nitrogen [Mass/Vol] 12.0 mg/dL Normal 8.0-22.0 [facility] ([place]) Comment on above: Performed By: #### C BC, GFR, ANEU, ADIFF, BMP #### [address] [address] CBCon 11-30-2022 Erythrocyte distribution width (RBC) [Ratio] 12.4 % Normal 11.5-15.5 [facility] ([place]) Comment on above: Performed By: #### C BC, GFR, ANEU, ADIFF, BMP #### [place] [id number] Hematocrit (Bld) [Volume fraction] 33.0 % Low 34.0-46.0 [facility] ([place]) Comment on above: Performed By: #### C BC, GFR, ANEU, ADIFF, BMP #### [place] [address] Hgb 11.2 G/dL Low 12.0-16.0 [facility] ([place]) Comment on above: Performed By: #### C BC, GFR, ANEU, ADIFF, BMP #### [place] [address] MCH (RBC) [Entitic mass] 29.9 pg Normal 27.0-33.0 [facility] ([place]) Comment on above: Performed By: #### C BC, GFR, ANEU, ADIFF, BMP #### [place] [address] MCHC 33.9 G/dL Normal 32.0-36.0 [facility] ([place]) Comment on above: Performed By: #### C BC, GFR, ANEU, ADIFF, BMP #### [place] [address] MCV (RBC) [Entitic vol] 88.2 fL Normal 80.0-99.0 [facility] ([place]) Comment on above: Performed By: #### C BC, GFR, ANEU, ADIFF, BMP #### [place] [address] Platelet 291 10 3/mcL Normal 150-450 [facility] ([place]) Comment on above: Performed By: #### C BC, GFR, ANEU, ADIFF, BMP #### [place] [address] Platelet mean volume (Bld) [Entitic vol] 7.3 fL Normal 6.6-10.5 [facility] ([place]) Comment on above: Performed By: #### C BC, GFR, ANEU, ADIFF, BMP #### [place] [address] RBC 3.74 10 6/mcL Low 4.10-5.30 [facility] ([place]) Comment on above: Performed By: #### C BC, GFR, ANEU, ADIFF, BMP #### [place] [address] WBC 6.3 10 3/mcL Normal 4.5-10.8 [facility] ([place]) Comment on above: Performed By: #### C BC, GFR, RICHARD, LUIS A, AMADOU #### [facility] [address] [place] [id number] LABORATORYOrdered By: SYSTEM SYSTEM on 11-30-2022 Basophils (Bld) [#/Vol] 0.0 103/mcL Invalid Interpretation Code 0.0 - 0.3 10^3/mcL AH Workflow SS Basophils/100 WBC (Bld) 0.1 % Invalid Interpretation Code 0.0 - 2.5 % AH Workflow SS Calcium [Mass/Vol] 9.1 mg/dL Invalid Interpretation Code 8.7 - 10.4 mg/dL ADM SS Chloride [Moles/Vol] 100 mmol/L Invalid Interpretation Code 98 - 110 mEq/L ADM SS CO2 [Moles/Vol] 27 mmol/L Invalid Interpretation Code 22 - 32 mEq/L ADM SS Creatinine [Mass/Vol] 0.72 mg/dL Invalid Interpretation Code 0.50 - 1.20 mg/dL ADM SS Electrolyte Balance 6.0 mEq/L Invalid Interpretation Code 4.0 - 15.0 mEq/L ADM SS Eosinophils (Bld) [#/Vol] 0.3 103/mcL Invalid Interpretation Code 0.0 - 0.7 10^3/mcL AH Workflow SS Eosinophils/100 WBC (Bld) 4.0 % Invalid Interpretation Code 0.0 - 6.0 % AH Workflow SS Erythrocyte distribution width (RBC) [Ratio] 12.4 % Invalid Interpretation Code 11.5 - 15.5 % AH Workflow SS GFR/1.73 sq M.predicted among blacks MDRD (S/P/Bld) [Vol rate/Area] ml/min/1.73sqm Invalid Interpretation Code Chemistry S Comment on above: Interpretive Data: GFR Population mean for , Non- Americans Ages 20-29 = 116 mL/min/1.73 sq.m. Ages 30-39 = 107 mL/min/1.73 sq.m. Ages 40-49 = 99 mL/min/1.73 sq.m. Ages 50-59 = 93 mL/min/1.73 sq.m. Ages 60-69 = 85 mL/min/1.73 sq.m. Ages 70+ = 75 mL/min/1.73 sq.m. Chronic Kidney Disease: Less than 60 mL/min/1.73 square meters End Stage Renal Disease: Less than 15 mL/min/1.73 square meters GFR/1.73 sq M.predicted among non-blacks MDRD (S/P/Bld) [Vol rate/Area] ml/min/1.73sqm Invalid Interpretation Code Chemistry S Comment on above: Interpretive Data: GFR Population mean for , Non- Americans Ages 20-29 = 116 mL/min/1.73 sq.m. Ages 30-39 = 107 mL/min/1.73 sq.m. Ages 40-49 = 99 mL/min/1.73 sq.m. Ages 50-59 = 93 mL/min/1.73 sq.m. Ages 60-69 = 85 mL/min/1.73 sq.m. Ages 70+ = 75 mL/min/1.73 sq.m. Chronic Kidney Disease: Less than 60 mL/min/1.73 square meters End Stage Renal Disease: Less than 15 mL/min/1.73 square meters Glucose [Mass/Vol] 107 mg/dL Invalid Interpretation Code 82 - 115 mg/dL ADM SS Hematocrit (Bld) [Volume fraction] 33.0 % Invalid Interpretation Code 34.0 - 46.0 % Workflow SS Hemoglobin (Bld) [Mass/Vol] 11.2 G/dL Invalid Interpretation Code 12.0 - 16.0 G/dL Workflow SS Lymphocytes (Bld) [#/Vol] 1.7 103/mcL Invalid Interpretation Code 0.9 - 4.3 10^3/mcL Workflow SS Lymphocytes/100 WBC (Bld) 27.7 % Invalid Interpretation Code 20.0 - 40.0 % Workflow SS MCH (RBC) [Entitic mass] 29.9 pg Invalid Interpretation Code 27.0 - 33.0 pg Workflow SS MCHC 33.9 G/dL Invalid Interpretation Code 32.0 - 36.0 G/dL Workflow SS MCV (RBC) [Entitic vol] 88.2 fL Invalid Interpretation Code 80.0 - 99.0 fL Workflow SS Monocytes (Bld) [#/Vol] 0.6 103/mcL Invalid Interpretation Code 0.1 - 1.4 10^3/mcL AH Workflow SS Monocytes/100 WBC (Bld) 9.6 % Invalid Interpretation Code 2.0 - 13.0 % AH Workflow SS Neutrophils (Bld) [#/Vol] 3.7 103/mcL Invalid Interpretation Code 2.3 - 8.1 10^3/mcL AH Workflow SS Neutrophils/100 WBC (Bld) 58.6 % Invalid Interpretation Code 50.0 - 75.0 % AH Workflow SS Platelet mean volume (Bld) [Entitic vol] 7.3 fL Invalid Interpretation Code 6.6 - 10.5 fL AH Workflow SS Platelets (Bld) [#/Vol] 291 103/mcL Invalid Interpretation Code 150 - 450 10^3/mcL AH Workflow SS Potassium [Moles/Vol] 4.0 mmol/L Invalid Interpretation Code 3.5 - 5.0 mEq/L AH ADM SS RBC (Bld) [#/Vol] 3.74 106/mcL Invalid Interpretation Code 4.10 - 5.30 10^6/mcL AH Workflow SS Sodium [Moles/Vol] 133 mmol/L Invalid Interpretation Code 136 - 145 mEq/L AH ADM SS Urea nitrogen [Mass/Vol] 12.0 mg/dL Invalid Interpretation Code 8.0 - 22.0 mg/dL AH ADM SS Urea nitrogen/Creatinine [Mass ratio] 16.7 ratio Invalid Interpretation Code 10.0 - 22.0 ratio AH ADM SS WBC (Bld) [#/Vol] 6.3 103/mcL Invalid Interpretation Code 4.5 - 10.8 10^3/mcL AH Workflow SS XR FLUORO > 2 HRS TECH TIMEo n 11-30-2022 XR FLUORO > 2 HRS TECH TIME ORIGINAL EXAMINATION: SPOT FLUOROSCOPIC IMAGES 11/30/2022 12:03 [...] Sign Date: 11/30/2022 12:19:24 PM Ordering Provider: AAKASH MARAVILLA Count Includes [facility] ([place]) STREP A MOLECULAR (POC)on Procedural Control Valid [facility] Strep A (POCT) Negative Negative [facility] Basophil percentageon 2021 C. trachomatis DNA WILMER+probe Ql (Unsp spec) Negative Negative [facility] Work Phone: HIV 1 and HIV-2 antibody ass ay with HIV-1 p24 antigen detectionon 10-30-2021 HIV 1+2 Ab+HIV1 p24 Ag IA Ql Non-Reactive Nonreactive [facility] Work Phone: Neisseria gonorrhoeae detect ion by PCRon 10-30-2021 N. gonorrhoeae DNA WILMER+probe Ql (Cervical mucus) Negative Negative [facility] Work Phone: No Panel Informationon 10-30 Hepatitis C Antibody Non-Reactive Nonreactive [facility] Work Phone: Comment on above: Non Reactive: < 0.8 Equivocal: >/= 0.8 to < 1.0 Reactive: >/= 1.0The CDC recommends that a reactive/equivocal HCV antibody result be followed up by the HCV Nucleic Acid Amplificationtest (408379) Serum Treponema species anti body detectionon 10-30-2021 Treponema sp Ab Ql (S) Non-Reactive [facility] Work Phone: Laboratory - Microbiology an d Antimicrobial susceptibilityon 05-19-2021 SARS-CoV-2 (COVID-19) RNA WILMER+probe Ql (Unsp spec) Not detected [facility] Work Phone: No Panel Informationon 05-19 Influenza Types A,B Rapid (Clinic) Not detected [facility] Work Phone: NURSING PROGon 03-10-2021 NURSING PROG HNO ID: [id number] Author: Rubina Larios RN Service: Nursing Author Type: Registered Nurse Type: Nursing Progress Note Filed: 03/10/2021 11:09 AM Note Text: The patient was brought into the procedure room and a time out was done. After confirmation of potential allergies, a topical analgesic was used to numb the right nares followed by the trans-nasal insertion of a High Resolution Manometry catheter. Pressure bands of the UES and LES were observed on the color contour. The patient was instructed to take a deep breath to verify placement of catheter, diaphragmatic pinch noted on inspiration. The patient was laying supine and the catheter stabilized. The patient was encouraged to relax while acclimating to the catheter for approximately 5 minutes. A 30 second baseline pressure was obtained to identify the UES and LES followed by a series of ten wet swallows, using 5mL of room temperature normal saline to assess esophageal motility. At the conclusion of the procedure the catheter was removed. The patient tolerated the procedure well. No heme noted when catheter removed. Normal [facility] 02-07-2021 [facility] Telephone (AGGENS3) CONNIE GREENBERG ([id number]) 1960 F Date Time Provider Department 02/07/21 YARIEL GONZALESENS3 During your visit today, we recorded the following information about you: Savi Tracy RN 02/07/2021 12:15 PM Signed I called the patient and verbally discussed and reviewed the information about esophageal manometry. All of patient's questions were answered. Patient agreed to be scheduled on 03/10/21 at 10:00. I mailed the patient written information about esophageal manometry and the prep instructions, including Covid testing, and directions for the appointment. Patient was informed that she will need to follow up with Dr. Coronado for test results. Savi Tracy RN Allergies As of Date: 02/07/2021 Noted Allergy Reaction BEE VENOM PROTEIN (HONEY BEE) 01/06/2020 12 - Shortness of Breath Date Reviewed: 11/23/2020 Reviewed by: Jacqueline Pearson RN - Fully Assessed Reason for Visit: Future Appointment [256] Cmt: esophageal mano 03/10/21 Prescriptions as of 02/07/2021 - oxyCODONE-acetaminoph en (PERCOCET) 5-325 mg tablet Take 1-2 tablets by mouth every 4 hours as needed. - gabapentin (NEURONTIN) 800 mg tablet Take 800 mg by mouth three times daily. - lamoTRIgine (LAMICTAL) 150 mg tablet Take 150 mg by mouth twice daily. - lisinopril (ZESTRIL, PRINIVIL) 10 mg tablet Take 10 mg by mouth once daily. - traZODone (DESYREL) 50 mg tablet Take 100 mg by mouth daily at bedtime. - melatonin 10 mg tab Take by mouth daily at bedtime. 10-20 mg - OLANZapine (ZYPREXA) 10 mg tablet Take 10 mg by mouth daily at bedtime. - ARIPiprazole (ABILIFY) 2 mg tablet Take 2 mg by mouth daily at bedtime. - carBAMazepine ER (CARBATROL) 200 mg 12 hr capsule Take 400 mg by mouth daily at bedtime. - hydrOXYzine pamoate (VISTARIL) 50 mg capsule Take 50 mg by mouth three times daily as needed. - lidocaine (LIDOCARE TOPICAL) Apply to affected area as needed. - eluxadoline (VIBERZI) 100 mg tab Take 50 mg by mouth as needed (diarrhea). - ondansetron (ZOFRAN) 4 mg tablet Take by mouth every 8 hours as needed for nausea/vomiting. - cyclobenzaprine (FLEXERIL) 10 mg tablet Take by mouth as needed. - Apple Cider Vinegar 500 mg tab Take by mouth once daily. - fluticasone propion-salmeterol (AIRDUO DIGIHALER) 113 mcg-14 mcg/actuation digihaler Inhale 1 Inhalation as instructed twice daily. - calcium carbonate (TUMS ORAL) Take by mouth as needed. - naproxen sodium (ALEVE) 220 mg cap Take by mouth as needed (pain). 1-2 tablets - acetaminophen (TYLENOL 8 HOUR) 650 mg CR tablet Take 1,300 mg by mouth every 8 hours as needed for pain. - COQ10, UBIQUINOL, ORAL Take 200 mg by mouth once daily. - pyridoxine, vitamin B6, (VITAMIN B-6) 100 mg tablet Take 100 mg by mouth once daily. - cyanocobalamin (VITAMIN B-12) 500 mcg tablet Take by mouth once daily. - Cholecalciferol, Vitamin D3, (VITAMIN D) 25 mcg (1,000 unit) cap Take 1,000 Units by mouth once daily. - multivit with calcium,iron,min (WOMEN'S MULTIPLE VITAMINS ORAL) Take by mouth once daily. - TURMERIC ORAL Take 500 mg by mouth once daily. - oxybutynin ER (DITROPAN XL) 15 mg 24 hr Extended Rel Tab Take 15 mg by mouth once daily. - estradiol 0.01% estriol 0.01% topical cream (CPD) Apply to affected area daily at bedtime. - aspirin 81 mg chewable tablet Take 81 mg by mouth once daily. - albuterol HFA (VENTOLIN HFA) 90 mcg/actuation inhaler Inhale 2 Puffs as instructed every 4 hours as needed for Wheezing/Shortness of Breath. - montelukast (SINGULAIR) 10 mg tablet Take 10 mg by mouth daily at bedtime. - Omeprazole 40 mg capsule TAKE ONE CAPSULE AT 5PM - prazosin (MINIPRESS) 1 mg cap Take 1 mg by mouth daily at bedtime. - simvastatin (ZOCOR) 20 mg tablet Take 20 mg by mouth daily at bedtime. Problem List As Of Date: 02/07/2021 (None) Encounter Status:Closed by SAVI TRACY on 02/07/21 [facility] ANES POSTPROC EVALon 021 ANES POSTPROC EVAL HNO ID: [id number] Author: Marshal Mari MD Service: Anesthesiology Author Type: Physician Type: Anesthesia Postprocedure Evaluation Filed: 11/29/2020 7:05 AM Note Text: POST ANESTHESIA EVALUATION NOTE : 1960 Procedure Summary Date: 11/23/20 Room / Location: [place] OR 16 / [place] OR Anesthesia Start: 1401 Anesthesia Stop: 1720 Procedures: ARTHRODESIS OF MID TARSAL/TARSOMETATRASA L (Left ) BONE GRAFT (Left ) HALLUX VALGUS CORRECTION (Left ) Diagnosis: Left foot pain Arthritis of left foot Acquired hallux valgus of left foot (Left foot pain [M79.672]) (Arthritis of left foot [M19.072]) (Acquired hallux valgus of left foot [M20.12]) Surgeons: Aakash Maravilla DPM Responsible Provider: Marshal Mari MD Anesthesia Type: general ASA Status: 3 Anesthesia Type: general Last vitals Vitals Value Taken Time BP 137/72 11/23/205 Temp 36.9 ?C (98.4 ?F) 11/23/20 1800 HR SpO2 91 11/23/201844 Resp 17 11/23/20 184 SpO2 94 % 11/23/201844 Post Anesthesia Patient Status Patient Evaluation: bedside. Pulmonary Status: breathing comfortably on supplemental oxygen Cardiovascular Status: stable. Intraoperative Events: no significant anesthesia events Recommendation: continue current plan of care. Anesthesia Observations No Documentation SIGNATURE: Marshal Mari MD PATIENT NAME: Connie Greenberg DATE: November 29, 2020 TIME: 7:05 AM CSN: [id number] Normal [facility] ALLIED HEALTHon 11-23-2020 ALLIED HEALTH HNO ID: [id number] Author: RT Marvin(Chava) Service: Radiology Author Type: Bee Producer Type: Allied Health Filed: 11/23/2020 5:56 PM Note Text: Radiology Service Progress Note PATIENT NAME: Connie Greenberg DATE OF SERVICE: November 23, 2020 TIME: 5:55 PM PATIENT IDENTITY VERIFICATION COMPLETED USING TWO (2) IDENTIFIERS: Name and Date of confirmed by patient verbally and Name and Date of confirmed by identification band. FALL SCREENING: Has the patient had 2 falls in the last year or 1 fall with injury or currently using an Ambulatory Assistive Device (Walker, Cane, Wheelchair, Crutches, etc.)? Inpatient: Screened on floor PATIENT GENDER DATA: Female. status: : No status: NO. PATIENT RELEVANT IMPLANT DATA REVIEWED: Not Applicable RADIOLOGY DEPARTMENT: General X-ray: Exam(s) Completed: Lower Extremity X-Ray(s): Foot, Left PERIPHERAL IV DATA: Not applicable SIGNED BY: RT Marvin(R) November 23, 2020 5:55 PM [facility] ALLIED HEALTH HNO ID: [id number] Author: REY Moreno) Service: ? Author Type: Technologist Type: Allied Health Filed: 11/23/2020 5:51 PM Note Text: Radiology Service Progress Note PATIENT NAME: Connie Greenberg DATE OF SERVICE: November 23, 2020 TIME: 5:49 PM PATIENT IDENTITY VERIFICATION COMPLETED USING TWO (2) IDENTIFIERS: Name and Date of obtained from a relative, guardian or prior caregiver.. FALL SCREENING: Has the patient had 2 falls in the last year or 1 fall with injury or currently using an Ambulatory Assistive Device (Walker, Cane, Wheelchair, Crutches, etc.)? Inpatient: Screened on floor PATIENT GENDER DATA: Female. status: : No status: NO. PATIENT RELEVANT IMPLANT DATA REVIEWED: Not Applicable RADIOLOGY DEPARTMENT: OPERATIVE XRAY. FOOT. LEFT. PERIPHERAL IV DATA: Not applicable SIGNED BY: RT Josh(Chava) November 23, 2020 5:49 PM [facility] ANES PRE-OPon 11-23-2020 ANES PRE-OP HNO ID: [id number] Author: Marshal Mari MD Service: Anesthesiology Author Type: Physician Type: Anesthesia Preprocedure Evaluation Filed: 11/23/2020 1:01 PM Note Text: ANESTHESIOLOGY DAY OF SURGERY NOTE : 1960 Procedure(s) (LRB): ARTHRODESIS OF MID TARSAL/TARSOMETATRASA L (Left) BONE GRAFT (Left) HALLUX VALGUS CORRECTION (Left) Surgeon(s): Aakash Maravilla DPM Estimated body mass index is 30.6 kg/m? as calculated from the following: Height as of this encounter: 158.8 cm (5' 2.5). Weight as of this encounter: 77.1 kg (170 lb). Most recent hematocrit and potassium results: No results found for this basename: HCT,HEMATOCRIT,K,POTA SSIUM Relevant Problems No relevant active problems I - PHYSICAL EVALUATION AIRWAY Patient intubated: No. Neck ROM: full ROM without neurological symptoms. Mouth opening: adequate. DENTAL Normal dental observations. Dental findings: teeth intact. II - ANESTHESIA PLAN ASA Score: 3 NPO Status: adequate Monitoring plan: standard ASA. Postoperative analgesic plan: parenteral or oral opioids and per surgical service. Anesthetic Risks, Benefits, Alternatives, Personnel Discussed. Consent obtained from: patient.Patient / Surrogate agrees to blood products: blood products not planned Vitals Value Taken Time BP 139/74 11/23/20 1259 Pulse 74 11/23/20 1259 Resp 16 11/23/20 1259 Temp 37.2 ?C (99 ?F) 11/23/20 1259 SpO2 98 % 11/23/20 1259 No current facility-administered medications on file as of 11/23/2020. Outpatient Medications as of 11/23/2020 Medication Sig - gabapentin (NEURONTIN) 800 mg tablet Take 800 mg by mouth three times daily. - lamoTRIgine (LAMICTAL) 150 mg tablet Take 150 mg by mouth twice daily. - lisinopril (ZESTRIL, PRINIVIL) 10 mg tablet Take 10 mg by mouth once daily. - traZODone (DESYREL) 50 mg tablet Take 100 mg by mouth daily at bedtime. - melatonin 10 mg tab Take by mouth daily at bedtime. 10-20 mg - OLANZapine (ZYPREXA) 10 mg tablet Take 10 mg by mouth daily at bedtime. - ARIPiprazole (ABILIFY) 2 mg tablet Take 2 mg by mouth daily at bedtime. - carBAMazepine ER (CARBATROL) 200 mg 12 hr capsule Take 400 mg by mouth daily at bedtime. - hydrOXYzine pamoate (VISTARIL) 50 mg capsule Take 50 mg by mouth three times daily as needed. - lidocaine (LIDOCARE TOPICAL) Apply to affected area as needed. - eluxadoline (VIBERZI) 100 mg tab Take 50 mg by mouth as needed (diarrhea). - ondansetron (ZOFRAN) 4 mg tablet Take by mouth every 8 hours as needed for nausea/vomiting. - cyclobenzaprine (FLEXERIL) 10 mg tablet Take by mouth as needed. - Apple Cider Vinegar 500 mg tab Take by mouth once daily. - fluticasone propion-salmeterol (AIRDUO DIGIHALER) 113 mcg-14 mcg/actuation digihaler Inhale 1 Inhalation as instructed twice daily. - calcium carbonate (TUMS ORAL) Take by mouth as needed. - naproxen sodium (ALEVE) 220 mg cap Take by mouth as needed (pain). 1-2 tablets - acetaminophen (TYLENOL 8 HOUR) 650 mg CR tablet Take 1,300 mg by mouth every 8 hours as needed for pain. - COQ10, UBIQUINOL, ORAL Take 200 mg by mouth once daily. - pyridoxine, vitamin B6, (VITAMIN B-6) 100 mg tablet Take 100 mg by mouth once daily. - cyanocobalamin (VITAMIN B-12) 500 mcg tablet Take by mouth once daily. - Cholecalciferol, Vitamin D3, (VITAMIN D) 25 mcg (1,000 unit) cap Take 1,000 Units by mouth once daily. - multivit with calcium,iron,min (WOMEN'S MULTIPLE VITAMINS ORAL) Take by mouth once daily. - TURMERIC ORAL Take 500 mg by mouth once daily. - oxybutynin ER (DITROPAN XL) 15 mg 24 hr Extended Rel Tab Take 15 mg by mouth once daily. - estradiol 0.01% estriol 0.01% topical cream (CPD) Apply to affected area daily at bedtime. - aspirin 81 mg chewable tablet Take 81 mg by mouth once daily. - albuterol HFA (VENTOLIN HFA) 90 mcg/actuation inhaler Inhale 2 Puffs as instructed every 4 hours as needed for Wheezing/Shortness of Breath. - montelukast (SINGULAIR) 10 mg tablet Take 10 mg by mouth daily at bedtime. - Omeprazole 40 mg capsule TAKE ONE CAPSULE AT 5PM - prazosin (MINIPRESS) 1 mg cap Take 1 mg by mouth daily at bedtime. - simvastatin (ZOCOR) 20 mg tablet Take 20 mg by mouth daily at bedtime. I have interviewed and examined the patient. I have reviewed the medical record and/or the pre-anesthesia evaluation, pertinent labs, and test results. This contains updated information obtained within 48 hours of Surgery/Procedure. SIGNATURE: Marshal Mari MD PATIENT NAME: Connie Greenberg DATE: November 23, 2020 TIME: 1:00 PM CSN: [id number] [facility] OPERATIVE NOon 11-23-2020 OPERATIVE NO HNO ID: [id number] Author: Aakash Maravilla DPM Service: Podiatry Author Type: Physician Type: Operative Report Filed: 11/25/2020 1:20 PM Note Text: Date of surgery 11/23/2020 Surgeon: RENITA Ob Gyn: OR personnel, Jazmin Sahni, PGY2 Preoperative diagnosis: Primary osteoarthritis left foot, hallux valgus deformity left foot, contracture joint left great toe, midfoot angular deformity, metatarsus adductus, pain left foot Postoperative diagnosis is the same Procedure: #1 midfoot arthrodesis of multiple joints consisting of the 1st metatarsocuneiform joint and the intertarsal joint, #2 midfoot arthrodesis of metatarsal joints 2 and 3 with angular deformity and correction 3. Phalanx osteotomy left great toe, #4 Bang bunionectomy with tendon release, harvest bone graft large left calcaneus Anesthesia: General with popliteal and saphenous nerve block. Estimated blood loss: Less than 30 cc Injectables was none complications none Brief indication for procedure: Patient is a well-known 60-year-old female presents today with having a painful deformity she is presented to my office she is a well-known patient of mine at [facility] [place] with a complaint of having a painful deformity this been bothersome for quite some time she has had pain in her foot for years we did have a significant noticeable deformity she has redness she has severe pain along the medial side of the great toe is severely subluxed she has moderate to severe pirr-dg-evmi contact and midfoot arthritis as noted on the left foot. There is dorsal spurring and pain along the top of her left foot. At this point we tried all conservative methods consisting of injections anti-inflammatories therapy shoe gear modifications and orthotics. They have all failed. She does understand all risks complications and benefits of the surgical procedure at hand all questions answered no guarantees given or implied. Patient was seen in the preoperative holding her chart reviewed and consent was signed patient was given 2 g Ancef prior to the procedure. Patient is then taken back to the operating room placed on the table normal supine position. She had abductor or saphenous and popliteal block per anesthesia. Attention then directed leg left lower extremity where a tourniquet was placed at the left thigh but not inflated. Bone foam was placed underneath the left leg and ipsilateral bump was placed underneath the left hip. At that point then the tourniquet was then an Esmarch was applied after the lower extremities and scrubbed prepped draped usual aseptic technique. Timeout was then performed. Esmarch tourniquet was inflated to 250 mL worker about the left thigh. At this point then attention directed to the lateral aspect of the left calcaneus incision was made along the lateral calcaneus down the periosteum the Serious Parody bone harvest system was then inserted 3 to 4 cc of bone graft was unable to be obtained. At this point then this incision was then flushed and closed with 4-0 nylon. Attention directed the dorsal aspect of the intertarsal and metatarsocuneiform joints a 6cm linear longitudinal incision was made overlying the 3rd metatarsocuneiform joint extending in a distal line with the 3rd digit and 3rd metatarsal. Once incision was deepened down to the subcu at that point then the tendons and extensor digitorum muscle bellies were then retracted laterally down to the periosteum periosteum was reflected over top of the bone the bone was then reflected extending and showing a large bony eburnation with significant large bone osteophytes these were then resected with a sagittal saw. The [employer] planer was then inserted cut guide was then also applied after a pin cut through the planar. At that point then the osteotomy was then performed of both the 2nd and 3rd metatarsals while using fluoroscopy cuts were then made all the way plantar the metatarsal osteotomy had been performed along with planing of the joint of the metatarsal cuneiform joints of 2 and 3. At that point then the compressor distractor was applied as far laterally as possible of the 3rd metatarsal opened up bone grafts were then able to be removed and obtained. At that point then the joints were then prepped with a 2 oh drill bit and then the bone graft was inserted into the area for prepping of the joint fusion. Then the angular correction had to be reduced and reformed at that point. Next the metatarsals were pushed up and out in a lateral position. Once doing so than they were fixated with a 2 oh olive wire into the lateral metatarsal and the 3rd lateral metatarsal. Holding fixation then they were fixated with the locking plates on top of the 2nd and 3rd metatarsocuneiform joint using fast pitch screws. The fusion to been properly performed using oblique and AP lateral views on fluoroscopy was noted to be intact and stress v (more content not included)... Normal [facility] XR FOOT 2V AP/LAT LTon 11-23 XR FOOT 2V AP/LAT LT * * *Final Report* * * DATE OF EXAM: Nov 23 2020 5:49PM [id number] - XR FOOT 2V AP/LAT LT / PROCEDURE REASON: ARTHRODESIS * * * * Physician Interpretation * * * * FLUOROSCOPY AND IMAGING: CLINICAL INDICATION: Arthrodesis of mid tarsal/tarsometatarsa l and hallux valgus correction COMPARISON: Left foot radiographs 11/11/2018. Five small [id number] intraoperative acquisitions of the left foot with attention to the midfoot and forefoot are submitted. Bone detail is limited. There is dorsal plate and screw fixation hardware bridging the first, second and third tarsometatarsal joints. There are two plates bridging the first tarsometatarsal joint. There is a distal threaded screw obliquely traversing the medial and middle cuneiform bones. There is an osteotomy defect proximal shaft proximal phalanx great toe with bridging metal staple. Fluoroscopic Radiation Summary: Plane A, Air Kerma: 11.8 mGy Dose Area Product (DAP): 713.4 mGy*cm^2 Fluoro time: 7:46 min:sec Total number of acquisitions: 5 IMPRESSION: Fluoroscopy and imaging provided for orthopedic procedure. Imaging findings as described above. Correlate with postoperative radiographs and operative report. [employer] Manager: PSCB Transcribe Date/Time: Nov 24 2020 8:28A Dictated by : ZAKIA TATE MD This examination was interpreted and the report reviewed and electronically signed by: ZAKIA TATE MD on Nov 24 2020 8:33AM EST [id number] Normal [facility] XR FOOT 3V AP/LAT/OBL LTon 1 XR FOOT 3V AP/LAT/OBL LT * * *Final Report* * * DATE OF EXAM: Nov 23 2020 5:53PM [id number] - XR FOOT 3V AP/LAT/OBL LT / PROCEDURE REASON: Arthritis, foot * * * * Physician Interpretation * * * * PORTABLE POSTOP LEFT FOOT, PLANTAR DORSAL, OBLIQUE AND LATERAL: CLINICAL INDICATION: Arthrodesis of mid tarsal/tarsometatarsa l and hallux valgus correction COMPARISON: Fluoroscopy and imaging left foot 11/23/2020 and left foot radiographs 11/11/2018. The lower extremity is maintained in a fiberglass splint. There is dorsal plate and screw fixation hardware bridging the first, second and third tarsometatarsal joints. There are two plates bridging the first tarsometatarsal joint. There is a distal threaded screw obliquely traversing the medial and middle cuneiform bones. There is an osteotomy defect proximal shaft proximal phalanx great toe with dorsal bridging metal staple. No acute fracture deformity. Midfoot and forefoot swelling. IMPRESSION: Postoperative changes of arthrodesis at the first, second and third tarsometatarsal joints and hallux valgus correction as described above. [employer] Manager: GREG Transcribe Date/Time: Nov 24 2020 8:16A Dictated by : ZAKIA TATE MD This examination was interpreted and the report reviewed and electronically signed by: ZAKIA TATE MD on Nov 24 2020 8:33AM EST [id number] Normal [facility] Hemoglobin A1con 08-23-2019 HbA1c (Bld) [Mass fraction] 5.8 % High 4.3-5.6 [facility] Comment on above: Performed By: #### H BA1C #### [facility] Laboratories Routine Lab [address] [address] HbA1c (Bld) [Mass fraction] 120 mg/dL Normal [facility] Comment on above: Performed By: #### H BA1C #### [facility] Routine Lab [address] [address] CBC + DIFFon 01-07-2019 Basophils (Bld) [#/Vol] 0.10 x10EE3/UL Normal 0.00 - 0.10 [facility] Comment on above: Performed By: #### 2 01274 #### [facility],[address] [place] [address]3236 Basophils/100 WBC (Bld) 1.3 % Normal 0.0 - 2.0 [facility] Comment on above: Performed By: #### 2 91394 #### [facility],[address] [place] [address]644 CBC + DIFF Normal [facility] Comment on above: Result Comment: CBC- COMPLETE BLOOD COUNT Performed By: #### 2 55142 #### [facility],[address] [place] [address] Eosinophils (Bld) [#/Vol] 0.10 x10EE3/UL Normal 0.00 - 0.50 [facility] Comment on above: Performed By: #### 2 59283 #### [facility],[address] [place], [place] [id number] Eosinophils/100 WBC (Bld) 2.4 % Normal 0.0 - 7.0 [facility] Comment on above: Performed By: #### 2 92037 #### [address] [place] [id number] Erythrocyte distribution width (RBC) [Ratio] 14.0 % Normal 12.0 - 15.6 [facility] Comment on above: Performed By: #### 2 51064 #### [facility],[address] [place] [address] Hematocrit (Bld) [Volume fraction] 33.9 % Low 34.0 - 46.0 [facility] Comment on above: Performed By: #### 2 54705 #### [facility],[address] [place], [place] [id number] Hemoglobin (Bld) [Mass/Vol] 11.1 g/dL Low 12.0 - 16.0 [facility] Comment on above: Performed By: #### 2 89282 #### [facility],[address] [place], [place] [id number] Lymphocytes (Bld) [#/Vol] 1.70 x10EE3/UL Normal 0.80 - 2.80 [facility] Comment on above: Performed By: #### 2 38970 #### [place] [id number] Lymphocytes/100 WBC (Bld) 37.5 % Normal 20.0 - 45.0 [facility] Comment on above: Performed By: #### 2 05362 #### [facility],[address] [place] [address] 99371 MANUAL DIFF N/A Normal [facility] Comment on above: Performed By: #### 2 75742 #### [facility],[address] [place] [address] 25568 MCH (RBC) [Entitic mass] 28 pg Normal 27 - 33 [facility] Comment on above: Performed By: #### 2 81322 #### [facility],[address] [place] [address] MCHC (RBC) [Mass/Vol] 33 X10 3 Normal 32 - 36 [facility] Comment on above: Performed By: #### 2 26423 #### [facility],[address] [place], [place] [id number] MCV (RBC) [Entitic vol] 85 fL Normal 80 - 99 [facility] Comment on above: Performed By: #### 2 85883 #### [facility],[address] [place], [place] [id number] Monocytes (Bld) [#/Vol] 0.40 x10EE3/UL Normal 0.20 - 1.00 [facility] Comment on above: Performed By: #### 2 02734 #### [facility],[address] [place] [address] 18128 MONOS % 8.0 % Normal 0.0 - 10.0 [facility] Comment on above: Performed By: #### 2 65428 #### [facility],[address] [place], [place] [id number] Morphology [place] (Bld) [Interp] N/A Normal [facility] Comment on above: Performed By: #### 2 67078 #### [facility],[address] [place] [address] 25461 Neutrophils (Bld) [#/Vol] 2.30 x10EE3/UL Normal 1.50 - 7.10 [facility] Comment on above: Performed By: #### 2 01277 #### [facility],[address] [place] [address] 23206 Neutrophils/100 WBC (Bld) 50.8 % Normal 46.0 - 76.0 [facility] Comment on above: Performed By: #### 2 83086 #### [facility],[address] [place] [address] 94483 Platelet mean volume (Bld) [Entitic vol] 7.9 fL Normal 6.6 - 10.5 [facility] Comment on above: Result Comment: AUTO MATED DIFFERENTIAL Performed By: #### 2 90501 #### [facility],[address] [place] [address] 87047 Platelets (Bld) [#/Vol] 349 x10EE3/UL Normal 150 - 450 [facility] Comment on above: Performed By: #### 2 15609 #### [facility],[address] [place] [address] 12866 RBC (Bld) [#/Vol] 3.98 x 10EE6/UL Low 4.10 - 5.30 [facility] Comment on above: Performed By: #### 2 68833 #### [facility],[address] [place] [address] 63691 WBC (Bld) [#/Vol] 4.6 x 10EE3/UL Normal 4.5 - 10.8 [facility] Comment on above: Performed By: #### 2 78210 #### [facility],[address] [place] [address] 84898 CMP with eGFRon 01-07-2019 Age - Reported 58 years Normal [facility] Comment on above: Performed By: #### 2 68134 #### [facility],[address] [place] [address] 39897 Albumin [Mass/Vol] 4.1 g/dL Normal 3.4 - 4.8 [facility] Comment on above: Performed By: #### 2 33311 #### [facility],[address] [place] [address] 58292 Albumin/Globulin [Mass ratio] 1.7 {ratio} High 0.9 - 1.6 [facility] Comment on above: Performed By: #### 2 24136 #### [facility],[address] [place] [address] 74826 ALK PHOS 87 U/L Normal 38 - 126 [facility] Comment on above: Performed By: #### 2 92571 #### [facility],[address] [place] [address] 09097 ALT/SGPT 18 U/L Normal 8 - 35 [facility] Comment on above: Performed By: #### 2 63135 #### [facility],[address] [place] [address] 47766 Anion gap [Moles/Vol] 12 mmol/L Normal 10 - 20 [facility] Comment on above: Performed By: #### 2 92324 #### [facility],[address] [place] [address] 06238 AST/SGOT 14 U/L Normal 13 - 39 [facility] Comment on above: Performed By: #### 2 74729 #### [facility],[address] [place] [address] 64952 B/C RATIO 18 ratio Normal 0 - 30 [facility] Comment on above: Performed By: #### 2 57282 #### [facility],[address] [place] [address] 88754 Bilirubin [Mass/Vol] 0.6 mg/dL Normal 0.0 - 1.5 [facility] Comment on above: Performed By: #### 2 43938 #### [facility],[address] [place] [address] 19124 Calcium [Mass/Vol] 9.1 mg/dL Normal 8.6 - 10.2 [facility] Comment on above: Performed By: #### 2 41544 #### [facility],[address] [place] [address] 72540 Chloride [Moles/Vol] 101 mmol/L Normal 98 - 107 [facility] Comment on above: Performed By: #### 2 73792 #### [facility],[address] [place] [address] 39908 CO2 [Moles/Vol] 27.7 mmol/L Normal 21.0 - 31.0 [facility] Comment on above: Performed By: #### 2 94931 #### [facility],[address] [place] [address] 60508 Creatinine [Mass/Vol] 0.8 mg/dL Normal 0.6 - 1.2 [facility] Comment on above: Performed By: #### 2 77261 #### [facility],[address] [place] [address] 44926 GFR/1.73 sq M predicted among non-blacks MDRD (S/P/Bld) [Vol rate/Area] Normal [facility] Comment on above: Result Comment: COMP REHENSIVE METABOLIC PANEL Performed By: #### 2 89523 #### [facility],[address] [place] [address] 77880 GFR/1.73 sq M predicted among non-blacks MDRD (S/P/Bld) [Vol rate/Area] mL/min/{1.73_m2} Normal 60 - 999 [facility] Comment on above: Result Comment: ACCO RDING TO THE NATIONAL KIDNEY DISEASE EDUCATION PROGRAM(NKDE), A NORMAL eGFR IS A VALUE GREATER THAN OR EQUAL TO 60 ML/MIN/1.73 SQ METERS. CHRONIC KIDNEY DISEASE: <60mL/MIN/1.73 SQ METERS KIDNEY FAILURE: <15mL/MIN/1.73 SQ METERS THIS TEST SHOULD ONLY BE USED FOR PATIENTS 18 YEARS OF AGE AND OLDER. Performed By: #### 2 76063 #### [facility],[address] [place] [address] 47954 Globulin (S) [Mass/Vol] 2.4 g/dL Normal 1.5 - 3.8 [facility] Comment on above: Performed By: #### 2 37398 #### [facility],[address] [place] [address] 24162 Glucose [Mass/Vol] 108 mg/dL High 74 - 106 [facility] Comment on above: Performed By: #### 2 20026 #### [facility],[address] [place] [address] 16551 Potassium [Moles/Vol] 3.7 mmol/L Normal 3.5 - 5.1 [facility] Comment on above: Performed By: #### 2 98382 #### [facility],[address] [place] [address] 06132 Protein [Mass/Vol] 6.5 g/dL Normal 6.4 - 8.3 [facility] Comment on above: Performed By: #### 2 25244 #### [facility],[address] [place] [address] 37919 Sodium [Moles/Vol] 137 mmol/L Normal 136 - 145 [facility] Comment on above: Performed By: #### 2 49764 #### [facility],[address] [place] [address] 64292 Urea nitrogen [Mass/Vol] 14 mg/dL Normal 6 - 20 [facility] Comment on above: Performed By: #### 2 76716 #### [facility],[address] [place] [address] 64482 LIPID PROFILEon 01-07-2019 Cholesterol [Mass/Vol] 161 mg/dL Normal 0 - 200 [facility] Comment on above: Performed By: #### 2 86115 #### [facility],[address] [place] [address] 69201 Cholesterol in HDL [Mass/Vol] 61 mg/dL High 40 - 60 [facility] Comment on above: Performed By: #### 2 86449 #### [facility],[address] [place] [address] 04862 Cholesterol in LDL [Mass/Vol] 86 mg/dL Normal 0 - 129 [facility] Comment on above: Performed By: #### 2 90441 #### [facility],[address] [place], [place] [address] Cholesterol.total/Ch olesterol in HDL [Mass ratio] 2.6 {ratio} Normal 0.0 - 5.0 [facility] Comment on above: Performed By: #### 2 80100 #### [facility],[address] [place] [address] 56984 Lipid 1996 panel Normal [facility] Comment on above: Result Comment: LIPI D PROFILE Performed By: #### 2 87352 #### [facility],[address] [place], [place] [address] Triglyceride [Mass/Vol] 68 mg/dL Normal 0 - 150 [facility] Comment on above: Performed By: #### 2 81692 #### [facility],[address] [place], [place] [address] Vital Signs Date Time Vital Sign Value Performing Clinician Facility 05-19-2024 18:52-0400 Body mass index (BMI) [Ratio] 29.27 kg/m2 Eboni White APRN.CNP Work Phone: [facility] 05-19-2024 18:52-0400 Body temperature 98.01 [degF] Eboni White APRN.CARTOGRAPHIC DESIGNER Work Phone: [facility] 05-19-2024 18:52-0400 Body weight 72.6 kg Eboni White APRN.CARTOGRAPHIC DESIGNER Work Phone: [facility] 05-19-2024 18:52-0400 Diastolic blood pressure 80 mm[Hg] Eboni White APRN.CARTOGRAPHIC DESIGNER Work Phone: [facility] 05-19-2024 18:52-0400 Heart rate 82 /min Eboni White APRN.CARTOGRAPHIC DESIGNER Work Phone: [facility] 05-19-2024 18:52-0400 Respiratory rate 16 /min Eboni Praisler-Wood PRACTICE MANAGER.CARTOGRAPHIC DESIGNER Work Phone: [facility] 05-19-2024 18:52-0400 SaO2% (BldA) [Mass fraction] 97 % Eboni Praisler-Wood PRACTICE MANAGER.CARTOGRAPHIC DESIGNER Work Phone: [facility] 05-19-2024 18:52-0400 Systolic blood pressure 136 mm[Hg] Eboni Praisler-Wood PRACTICE MANAGER.CARTOGRAPHIC DESIGNER Work Phone: [facility] 03-15-2024 13:44-0500 Body mass index (BMI) [Ratio] 30.81 kg/m2 Eboni Praisler-Wood PRACTICE MANAGER.CARTOGRAPHIC DESIGNER Work Phone: [facility] 03-15-2024 13:44-0500 Body temperature 100.71 [degF] Eboni Praisler-Wood PRACTICE MANAGER.CARTOGRAPHIC DESIGNER Work Phone: [facility] 03-15-2024 13:44-0500 Body weight 76.4 kg Eboni Praisler-Wood PRACTICE MANAGER.CARTOGRAPHIC DESIGNER Work Phone: [facility] 03-15-2024 13:44-0500 Diastolic blood pressure 88 mm[Hg] Eboni Praisler-Wood PRACTICE MANAGER.CARTOGRAPHIC DESIGNER Work Phone: [facility] 03-15-2024 13:44-0500 Heart rate 100 /min Eboni Praisler-Wood PRACTICE MANAGER.CARTOGRAPHIC DESIGNER Work Phone: [facility] 03-15-2024 13:44-0500 Respiratory rate 20 /min Eboni Praisler-Wood PRACTICE MANAGER.CARTOGRAPHIC DESIGNER Work Phone: [facility] 03-15-2024 13:44-0500 SaO2% (BldA) [Mass fraction] 97 % Eboni Praisler-Wood PRACTICE MANAGER.CARTOGRAPHIC DESIGNER Work Phone: [facility] 03-15-2024 13:44-0500 Systolic blood pressure 160 mm[Hg] Eboni Praisler-Wood PRACTICE MANAGER.CARTOGRAPHIC DESIGNER Work Phone: [facility] 10-21-2023 15:11-0400 Body mass index (BMI) [Ratio] 32.18 kg/m2 Louise Indorf PRACTICE MANAGER.CARTOGRAPHIC DESIGNER Work Phone: [facility] 10-21-2023 15:11-0400 Body temperature 97.39 [degF] Louise Indorf PRACTICE MANAGER.CARTOGRAPHIC DESIGNER Work Phone: [facility] 10-21-2023 15:11-0400 Body weight 79.8 kg Louise Indorf PRACTICE MANAGER.CARTOGRAPHIC DESIGNER Work Phone: [facility] 10-21-2023 15:11-0400 Diastolic blood pressure 70 mm[Hg] Louise Indorf PRACTICE MANAGER.CARTOGRAPHIC DESIGNER Work Phone: [facility] 10-21-2023 15:11-0400 Heart rate 76 /min Louies Indorf PRACTICE MANAGER.CARTOGRAPHIC DESIGNER Work Phone: [facility] 10-21-2023 15:11-0400 Respiratory rate 20 /min Louise Indorf PRACTICE MANAGER.CARTOGRAPHIC DESIGNER Work Phone: [facility] 10-21-2023 15:11-0400 SaO2% (BldA) [Mass fraction] 97 % Louise Indorf PRACTICE MANAGER.CARTOGRAPHIC DESIGNER Work Phone: [facility] 10-21-2023 15:11-0400 Systolic blood pressure 118 mm[Hg] Louise Indorf PRACTICE MANAGER.CARTOGRAPHIC DESIGNER Work Phone: [facility] 04-29-2023 13:55-0400 Body temperature 98.6 [degF] Patricio Rich MD Work Phone: [facility] 04-29-2023 13:55-0400 Body weight 76 kg Patricio Rich MD Work Phone: [facility] 04-29-2023 13:55-0400 Diastolic blood pressure 85 mm[Hg] Patricio Rich MD Work Phone: [facility] 04-29-2023 13:55-0400 Heart rate 79 /min Patricio Rich MD Work Phone: [facility] 04-29-2023 13:55-0400 Respiratory rate 18 /min Patricio Rich MD Work Phone: [facility] 04-29-2023 13:55-0400 SaO2% (BldA) [Mass fraction] 98 % Patricio Rich MD Work Phone: [facility] 04-29-2023 13:55-0400 Systolic blood pressure 132 mm[Hg] Patricio Rich MD Work Phone: [facility] 04-27-2023 11:20-0400 Body temperature 98.6 [degF] Krislyn Aberegg PA Work Phone: [facility] 04-27-2023 11:20-0400 Body weight 75 kg Krislyn Aberegg PA Work Phone: [facility] [facility] 04-27-2023 11:20-0400 Diastolic blood pressure 64 mm[Hg] Krislyn Aberegg PA Work Phone: [facility] 04-27-2023 11:20-0400 Heart rate 108 /min Krislyn Aberegg PA Work Phone: [facility] 04-27-2023 11:20-0400 Respiratory rate 18 /min Krislyn Aberegg PA Work Phone: [facility] 04-27-2023 11:20-0400 SaO2% (BldA) [Mass fraction] 98 % Krislyn Aberegg PA Work Phone: [facility] 04-27-2023 11:20-0400 Systolic blood pressure 122 mm[Hg] Krislyn Aberegg PA Work Phone: [facility] 01-16-2023 21:02-0500 Diastolic Blood Pressure Non-Invasive 69 mm[Hg] YARIEL FLOWERS MD [facility] 01-16-2023 21:02-0500 Heart rate 75 /min YARIEL FLOWERS MD [facility] 01-16-2023 21:02-0500 Respiratory rate 18 /min YARIEL FLOWERS MD [facility] 01-16-2023 21:02-0500 Systolic Blood Pressure Non-Invasive 113 mm[Hg] YARIEL FLOWERS MD [address] [place] [address] 01-16-2023 16:17-0500 Diastolic Blood Pressure Non-Invasive 83 mm[Hg] YARIEL FLOWERS MD [address] [place] [address] 01-16-2023 16:17-0500 Heart rate 68 /min YARIEL FLOWERS MD [address] [place] [address] 01-16-2023 16:17-0500 Respiratory rate 18 /min YARIEL FLOWERS MD [address] [place] [address] 01-16-2023 16:17-0500 Systolic Blood Pressure Non-Invasive 136 mm[Hg] YARIEL FLOWERS MD [address] [place] [address] 01-16-2023 13:47-0500 Body temperature 98.24 [degF] YARIEL FLOWERS MD [address] [place] [address] 01-16-2023 13:47-0500 Body weight 71.6 kg YARIEL FLOWERS MD [address] [place] [address] 01-16-2023 13:47-0500 Diastolic Blood Pressure Non-Invasive 73 mm[Hg] YARIEL FLOWERS MD [address] 01-16-2023 13:47-0500 Heart rate 84 /min YARIEL FLOWERS MD [address] [place] [address] 01-16-2023 13:47-0500 Respiratory rate 18 /min YARIEL FLOWERS MD [address] [place] [address] 01-16-2023 13:47-0500 Systolic Blood Pressure Non-Invasive 127 mm[Hg] YARIEL FLOWERS MD [address] [place] [address] 11-30-2022 15:18-0400 Diastolic Blood Pressure Non-Invasive [address] AAKASH MARAVILLA DPM [facility] 11-30-2022 15:18-0400 Systolic Blood Pressure Non-Invasive [address] AAKASH MARAVILLA DPM [facility] 11-30-2022 14:04-0400 Body temperature 97.52 [degF] DR AAKASH MARAVILLA DPM [facility] 11-30-2022 14:04-0400 Diastolic Blood Pressure Non-Invasive [address] AAKASH MARAVILLA DPM [facility] 11-30-2022 14:04-0400 Heart rate 78 /min DR AAKASH MARAVILLA DPM [facility] 11-30-2022 14:04-0400 Respiratory rate 16 /min DR AAKASH MARAVILLA DPM [facility] 11-30-2022 14:04-0400 Systolic Blood Pressure Non-Invasive [address] AAKASH MARAVILLA DPM [facility] 11-30-2022 13:15-0400 Body temperature 97.52 [degF] DR AAKASH MARAVILLA DPM [facility] 11-30-2022 13:15-0400 Diastolic Blood Pressure Non-Invasive [address] AAKASH MARAVILLA DPM [facility] 11-30-2022 13:15-0400 Heart rate 82 /min DR AAKASH MARAVILLA DPM [facility] 11-30-2022 13:15-0400 Mean blood pressure 108 mm[Hg] DR AAKASH MARAVILLA DPM [facility] 11-30-2022 13:15-0400 Respiratory rate 16 /min DR AAKASH MARAVILLA DPM [facility] 11-30-2022 13:15-0400 Systolic Blood Pressure Non-Invasive [address] AAKASH MARAVILLA DPM [facility] 11-30-2022 13:00-0400 Heart rate 84 /min DR AAKASH MARAVILLA DPM [facility] 11-30-2022 12:55-0400 Heart rate 81 /min DR AAKASH MARAVILLA DPM [facility] 11-30-2022 12:45-0400 Mean blood pressure 100 mm[Hg] DR AAKASH MARAVILLA DPM [facility] 11-30-2022 12:30-0400 Body temperature 96.98 [degF] DR AAKASH MARAVILLA DPM [facility] 11-30-2022 12:30-0400 Mean blood pressure 101 mm[Hg] DR AAKASH MARAVILLA DPM [facility] 11-30-2022 12:20-0400 Respiratory Rate - Anes 0 br/min DR AAKASH MARAVILLA DPM [facility] 11-30-2022 12:15-0400 Respiratory Rate - Anes 15 br/min DR AAKASH MARAVILLA DPM [facility] 11-30-2022 12:10-0400 Respiratory Rate - Anes 16 br/min DR AAKASH MARAVILLA DPM [facility] 11-30-2022 11:05-0400 Body temperature 96.8 [degF] DR AAKASH MARAVILLA DPM [facility] 11-30-2022 10:45-0400 Body temperature 96.8 [degF] DR AAKASH MARAVILLA DPM [facility] 11-30-2022 06:51-0400 Body height 157.[address] AAKASH MARAVILLA DPM [facility] 11-30-2022 06:51-0400 Body weight 71.[address] AAKASH MARAVILLA DPM [facility] 11-30-2022 06:51-0400 Heart rate 67 /min DR AAKASH MARAVILLA DPM [facility] 10-31-2022 19:23-0400 Body temperature 98.4 [degF] Sheela Champion PRACTICE MANAGER.CARTOGRAPHIC DESIGNER Work Phone: [facility] 10-31-2022 19:23-0400 Body weight 68.04 kg Sheela Champion PRACTICE MANAGER.CARTOGRAPHIC DESIGNER Work Phone: [facility] 10-31-2022 19:23-0400 Diastolic blood pressure 82 mm[Hg] Sheela Champion PRACTICE MANAGER.CARTOGRAPHIC DESIGNER Work Phone: [facility] 10-31-2022 19:23-0400 Heart rate 79 /min Sheela Champion PRACTICE MANAGER.CARTOGRAPHIC DESIGNER Work Phone: [facility] 10-31-2022 19:23-0400 Respiratory rate 18 /min Sheela Champion PRACTICE MANAGER.CARTOGRAPHIC DESIGNER Work Phone: [facility] 10-31-2022 19:23-0400 SaO2% (BldA) [Mass fraction] 97 % Sheela Champion PRACTICE MANAGER.CARTOGRAPHIC DESIGNER Work Phone: [facility] 10-31-2022 19:23-0400 Systolic blood pressure 136 mm[Hg] Sheela Champion PRACTICE MANAGER.CARTOGRAPHIC DESIGNER Work Phone: [facility] 04-06-2022 17:29-0500 Body temperature 98.1 [degF] Krislyn Aberegg PA Work Phone: [facility] 04-06-2022 17:29-0500 Body weight 64.32 kg Krislyn Aberegg PA Work Phone: [facility] 04-06-2022 17:29-0500 Diastolic blood pressure 84 mm[Hg] Krislyn Aberegg PA Work Phone: [facility] 04-06-2022 17:29-0500 Heart rate 73 /min Krislyn Aberegg PA Work Phone: [facility] 04-06-2022 17:29-0500 Respiratory rate 18 /min Krislyn Aberegg PA Work Phone: [facility] 04-06-2022 17:29-0500 SaO2% (BldA) [Mass fraction] 99 % Krislyn Aberegg PA Work Phone: [facility] 04-06-2022 17:29-0500 Systolic blood pressure 128 mm[Hg] Krislyn Aberegg PA Work Phone: [facility] 11-30-2021 19:15-0400 Body temperature 97.7 [degF] Kaylen Athy PA-C Work Phone: [facility] 11-30-2021 19:15-0400 Body weight 70.94 kg Kaylen Athy PA-C Work Phone: [facility] 11-30-2021 19:15-0400 Diastolic blood pressure 78 mm[Hg] Kaylen Athy PA-C Work Phone: [facility] 11-30-2021 19:15-0400 Heart rate 83 /min Kaylen Athy PA-C Work Phone: [facility] 11-30-2021 19:15-0400 Respiratory rate 18 /min Kaylen Athy PA-C Work Phone: [facility] 11-30-2021 19:15-0400 SaO2% (BldA) [Mass fraction] 97 % Kaylen Athy PA-C Work Phone: [facility] 11-30-2021 19:15-0400 Systolic blood pressure 122 mm[Hg] Kaylen Athy PA-C Work Phone: [facility] 10-30-2021 10:08-0400 Body height 157.[address] Lee Garcia Work Phone: [facility] Work Phone: 10-30-2021 10:08-0400 Body mass index (BMI) [Ratio] 27.6 kg/m2 Dr. Lee Garcia Work Phone: [facility] Work Phone: 10-30-2021 10:08-0400 Body temperature 96.9 [degF] Dr. Lee Garcia Work Phone: [facility] Work Phone: 10-30-2021 10:08-0400 Body weight 68.[address] Lee Garcia Work Phone: [facility] Work Phone: 10-30-2021 10:08-0400 Diastolic blood pressure 80 mm[Hg] Dr. Lee Garcia Work Phone: [facility] Work Phone: 10-30-2021 10:08-0400 Heart rate 78 /min Dr. Lee Garcia Work Phone: [facility] Work Phone: 10-30-2021 10:08-0400 Respiratory rate 16 /min Dr. Lee Garcia Work Phone: [facility] Work Phone: 10-30-2021 10:08-0400 SaO2% (BldA) [Mass fraction] 99 % Dr. Lee Garcia Work Phone: [facility] Work Phone: 10-30-2021 10:08-0400 Systolic blood pressure 110 mm[Hg] Dr. Lee Garcia Work Phone: [facility] Work Phone: 08-03-2021 20:19-0400 Body temperature 97.9 [degF] Dr. Lee Garcia Work Phone: [facility] Work Phone: 08-03-2021 20:19-0400 Diastolic blood pressure 81 mm[Hg] Dr. Lee Garcia Work Phone: [facility] Work Phone: 08-03-2021 20:19-0400 Heart rate 78 /min Dr. Lee Garcia Work Phone: [facility] Work Phone: 08-03-2021 20:19-0400 Respiratory rate 18 /min Dr. Lee Garcia Work Phone: [facility] Work Phone: 08-03-2021 20:19-0400 SaO2% (BldA) [Mass fraction] 98 % Dr. Lee Garcia Work Phone: [facility] Work Phone: 08-03-2021 20:19-0400 Systolic blood pressure 134 mm[Hg] Dr. Lee Garcia Work Phone: [facility] Work Phone: 08-03-2021 20:17-0400 Body height 157.[address] Lee Garcia Work Phone: [facility] Work Phone: 08-03-2021 20:17-0400 Body mass index (BMI) [Ratio] 27.8 kg/m2 Dr. Lee Garcia Work Phone: [facility] Work Phone: 08-03-2021 20:17-0400 Body weight 68.[address] Lee Garcia Work Phone: [facility] Work Phone: 05-19-2021 17:03-0400 Body temperature 98.5 [degF] Dr. Lee Garcia Work Phone: [facility] Work Phone: 05-19-2021 17:03-0400 Diastolic blood pressure 68 mm[Hg] Dr. Lee Garcia Work Phone: [facility] Work Phone: 05-19-2021 17:03-0400 Heart rate 83 /min Dr. Lee Garcia Work Phone: [facility] Work Phone: 05-19-2021 17:03-0400 Respiratory rate 15 /min Dr. Lee Garcia Work Phone: [facility] Work Phone: 05-19-2021 17:03-0400 SaO2% (BldA) [Mass fraction] 98 % Dr. Lee Garcia Work Phone: [facility] Work Phone: 05-19-2021 17:03-0400 Systolic blood pressure 110 mm[Hg] Dr. Lee Garcia Work Phone: [facility] Work Phone: 05-12-2021 09:19-0400 Body mass index (BMI) [Ratio] 29.5 kg/m2 Dr. Lee Garcia Work Phone: [facility] Work Phone: 05-12-2021 09:19-0400 Body temperature 98.2 [degF] Dr. Lee Garcia Work Phone: [facility] Work Phone: 05-12-2021 09:19-0400 Body weight 74.[address] Lee Garcia Work Phone: [facility] Work Phone: 05-12-2021 09:19-0400 Diastolic blood pressure 84 mm[Hg] Dr. Lee Garcia Work Phone: [facility] Work Phone: 05-12-2021 09:19-0400 Heart rate 67 /min Dr. Lee Garcia Work Phone: [facility] Work Phone: 05-12-2021 09:19-0400 Respiratory rate 14 /min Dr. Lee Garcia Work Phone: [facility] Work Phone: 05-12-2021 09:19-0400 SaO2% (BldA) [Mass fraction] 98 % Dr. Lee Garcia Work Phone: [facility] Work Phone: 05-12-2021 09:19-0400 Systolic blood pressure 130 mm[Hg] Dr. Lee Garcia Work Phone: [facility] Work Phone: 05-08-2021 10:10-0400 Body mass index (BMI) [Ratio] 29.7 kg/m2 Dr. Lee Garcia Work Phone: [facility] Work Phone: 05-08-2021 10:10-0400 Body weight 74.[address] Lee Garcia Work Phone: [facility] Work Phone: Encounters Encounter Date Encounter Type Care Provider Facility Start: 07-31-2024 ambulatory Lee Garcia Facili ty:[facility] Start: 07-17-2024 ambulatory Compaduluthphani Garcia Facili ty:[facility] Start: 07-14-2024 End: 07-14-2024 ambulatory leonardo Drewalessia Facility:[facility] Start: 07-10-2024 Encounter for genera l adult medical examination without abnormal findings albina Russellalessia [facility] Start: 07-10-2024 End: 07-10-2024 [facility] Start: 07-10-2024 End: 07-10-2024 [facility] Start: 07-08-2024 ambulatory Efalbina Garcia Facili ty:[facility] Start: 06-04-2024 End: 06-04-2024 Emergency department patient visit Adore Godman Facility:[facility] Start: 06-03-2024 End: 06-03-2024 ambulatory [facility] Facility:[facility] Start: 05-19-2024 End: 05-19-2024 Subsequent hospital visit by physician Vivek [facility] Work Phone: Radiology Comment on above: Subacute cough [R05. 2] Start: 05-19-2024 End: 05-19-2024 ambulatory [facility] Facility:[facility] Start: 05-19-2024 End: 05-19-2024 Patient encounter procedure Eboni White PRACTICE MANAGER.CARTOGRAPHIC DESIGNER Work Phone: [facility] Comment on above: Subacute cough (Prim jacobo Dx); Sinobronchitis Start: 04-10-2024 End: 04-10-2024 [facility] Facility:[facility] Start: 04-09-2024 End: 04-10-2024 ambulatory [facility] Facility:[facility] Start: 03-15-2024 End: 03-15-2024 ambulatory [facility] Facility:[facility] Start: 03-15-2024 End: 03-15-2024 Patient encounter procedure Eboni White APRN.CARTOGRAPHIC DESIGNER Work Phone: [facility] Comment on above: Fever in other disea ses (Primary Dx); Bacterial sinusitis; Influenza A Start: 02-11-2024 End: 02-11-2024 ambulatory Naye Araujo Facility:[facility] Start: 02-10-2024 End: 02-10-2024 ambulatory [facility] Facility:[facility] Start: 02-10-2024 End: 02-10-2024 ambulatory [facility] Facility:[facility] Start: 02-07-2024 End: 02-07-2024 ambulatory [facility] Facility:[facility] Start: 01-27-2024 End: 01-27-2024 ambulatory [facility] Facility:[facility] Start: 12-09-2023 End: 12-09-2023 [facility] Start: 11-26-2023 End: 11-26-2023 ambulatory kalyanduluthphani [facility] Facility:[facility] Start: 11-18-2023 [facility] Start: 11-18-2023 End: 11-18-2023 ambulatory [facility] Facility:[facility] Start: 11-04-2023 End: 11-04-2023 ambulatory [facility] Facility:[facility] Start: 11-04-2023 End: 11-04-2023 ambulatory [facility] Facility:[facility] Start: 10-21-2023 End: 10-21-2023 ambulatory [facility] Facility:[facility] Start: 10-21-2023 End: 10-21-2023 Office outpatient visit 15 minutes Louise Maradiaga APRN.CNP Work Phone: [facility] Comment on above: Bacterial sinusitis (Primary Dx) Start: 09-26-2023 End: 09-26-2023 [facility] Start: 08-02-2023 End: 08-02-2023 ambulatory [facility] Facility:[facility] Start: 08-02-2023 End: 08-02-2023 ambulatory [facility] Facility:[facility] Start: 04-29-2023 End: 04-29-2023 Patient encounter procedure Patricio Rich MD Work Phone: [facility] Comment on above: Acute conjunctivitis of both eyes, unspecified acute conjunctivitis type (Primary Dx); Subconjunctival hemorrhage, bilateral; Petechiae; Ecchymosis; Wheezing Start: 04-28-2023 Telephone encounter Eva CHAO Work Phone: [facility] Comment on above: Results Start: 04-27-2023 End: 04-27-2023 Patient encounter procedure Eva CHAO Work Phone: [facility] Comment on above: URI, acute (Primary Dx); Acute conjunctivitis of both eyes, unspecified acute conjunctivitis type Start: 03-26-2023 Refill Ginette Snow Work Phone: [facility] Start: 01-16-2023 End: 01-17-2023 Emergency department patient visit ARYA TAO PA-C Facility:[facility] Start: 01-16-2023 Telephone encounter Gala Montana APRN.CARTOGRAPHIC DESIGNER Work Phone: [facility] Comment on above: Results Start: 01-16-2023 End: 01-16-2023 Emergency department patient visit YARIEL FLOWERS MD [facility] Start: 11-30-2022 End: 11-30-2022 ambulatory RAZ WOOD MD Facility:[facility] Start: 11-30-2022 End: 11-30-[address] AAKASH MARAVILLA DPM [facility] Start: 11-12-[address] AAKASH MARAVILLA DPM Fac ility:[facility] Start: 10-31-2022 End: 10-31-2022 Patient encounter procedure Sheela Champion APRN.[facility] Work Phone: [facility] Comment on above: Upper respiratory tr act infection, unspecified type (Primary Dx); Acute cough Start: 04-06-2022 End: 04-06-2022 Patient encounter procedure Eva CHAO Work Phone: [facility] Comment on above: Thrush (Primary Dx) Start: 11-30-2021 End: 11-30-2021 Patient encounter procedure Kaylen Goode PA-C Work Phone: [facility] Comment on above: Sinobronchitis (Prim jacobo Dx) Start: 10-30-2021 End: 10-30-[address] Lee Garcia Work Phone: [facility] Work Phone: Start: 10-30-2021 End: 10-30-[address] Lee Garcia Work Phone: [facility] Start: 08-03-2021 End: 08-03-2021 Emergency department patient visit Dr. Lee Garcia Work Phone: [facility] Start: 05-19-2021 End: 05-19-[address] Lee Garcia Work Phone: [facility] Start: 05-12-2021 End: 05-12-[address] Lee Garcia Work Phone: [facility] Start: 05-08-2021 End: 05-08-[address] Lee Garcia Work Phone: [facility] Start: 01-07-2019 Encounter for genera l adult medical examination without abnormal findings [facility] Start: 01-07-2019 End: 01-07-2019 Patient encounter procedure [facility] Procedures Date Procedure Procedure Detail Performing Clinician Start: 05-19-2024 Radiologic exam ches t 2 views Eboni White APRN.CARTOGRAPHIC DESIGNER Work Phone: Start: 03-15-2024 INFLUENZA A&B MOLECU LAR (POC) Eboni White APRN.CARTOGRAPHIC DESIGNER Work Phone: Start: 04-27-2023 COVID & INFLUENZA A/ B & RSV NAAT, ROUTINE Krtiburcio Duenas PA Work Phone: Start: 10-31-2022 STREP A MOLECULAR (POC) Gala Montana APRN.CARTOGRAPHIC DESIGNER Work Phone: Start: 02-11-[address] AAKASH MARAVILLA DPM Start: 02-11-[address] ALESSANDRO MARAVILLA DPM Start: 02-11-[address] AAKASH MARAVILLA DPM Hysterectomy DR AAKASH MARAVILLA DPM Viral antigen assay Dr. Compa Garcia Work Phone: Plan of Treatment Date Care Activity Detail Author Start: 2037 RSV Vaccine (1 - 1-d ose 75+ series) RSV Vaccine (1 - 1-dose 75+ series) [facility] Start: 11-11-2024 Urine microalbumin profile DTaP,Tdap,Td Vaccine (2 - Td or Tdap) [facility] Start: 10-13-2023 Covid-19 Vaccine ( season) Covid-19 Vaccine () [facility] Start: 10-13-2023 Covid-19 Vaccine () Covid-19 Vaccine () [facility] Start: 10-13-2023 Influenza vaccination Influenza Vacc ine (#1) [facility] Start: 02-11-2023 Depression Assessment Depression Ass essment [facility] Start: 10-31-2022 End: 11-14-2022 COVID & INFLUENZA A/B & RSV NAAT, ROUTINE [facility] Work Phone: Comment on above: Expected: 10/31/2022 , Expires: 11/14/2022 Start: 10-12-2022 Covid-19 Vaccine () Covid-19 Vaccine () [facility] Start: 10-12-2022 Influenza vaccination Influenza Vacc ine (#1) [facility] Start: 2022 RSV Vaccine (1 - 1-d ose 60+ series) RSV Vaccine (1 - 1-dose 60+ series) [facility] Start: 02-11-2022 DEPRESSION ASSESSMENT DEPRESSION ASS ESSMENT [facility] Start: 11-30-2021 End: 12-14-2021 SARS-CoV-2 (COVID-19) RNA [Presence] in Respiratory specimen by WILMER with probe detection 2019 [facility] Microbiology Routine Sinobronchitis Expected: 11/30/2021, Expires: 12/14/2021 [facility] Work Phone: Comment on above: Expected: 11/30/2021 , Expires: 12/14/2021 Start: 10-12-2021 Influenza vaccination INFLUENZA (#1) [facility] Start: 08-03-2021 [facility] Work Phone: Start: 03-19-2021 COVID-19 VACCINE (4 - Booster for Pfizer series) COVID-19 VACCINE (4 - Booster for Pfizer series) [facility] Start: 03-19-2021 Covid-19 Vaccine (4 - Pfizer series) Covid-19 Vaccine (4 - Pfizer series) [facility] Start: 02-11-2021 DEPRESSION ASSESSMENT DEPRESSION ASS ESSMENT [facility] Start: 06-12-2015 Screening for malign ant neoplasm of breast Mammogram Screening [facility] Start: 2012 SHINGRIX VACCINE (1 of 2) SHINGRIX VACCINE (1 of 2) [facility] Start: 07-23-2007 COLOGUARD (FIT-DNA) COLOGUARD (FIT-D NA) [facility] Start: 07-23-2007 Colonoscopy COLONOSCOPY [facility] Start: 07-23-2007 COLORECTAL CANCER SCREENING COLORECTAL CANCER SCREENING [facility] Start: 07-23-[address] COLONOGRAPHY [facility] Start: 07-23-2007 DIABETES SCREEN DIABETES SCREEN [facility] Start: 07-23-2007 Diabetes Screening Diabetes Screenin g [facility] Start: 07-23-2007 FECAL OCCULT BLOOD FECAL OCCULT BLOO D [facility] Start: 07-23-2007 Lipid 1996 panel - Serum or Plasma Lipid Screening [facility] Start: 07-23-2007 Lipid panel Lipid Screening [facility] Start: 07-23-2007 LIPID SCREEN LIPID SCREEN [facility] Start: 07-23-2007 Screening for malign ant neoplasm of colon [facility] Start: 07-23-2007 [facility] Start: 2002 Mammography [facility] Start: 2002 Screening for malign ant neoplasm of breast Mammogram Screening [facility] Start: 1992 HPV TESTING HPV TESTING [facility] Start: 1992 Screening for malign ant neoplasm of cervix HPV Testing [facility] Start: 07-23-1983 PAP TESTING PAP TESTING [facility] Start: 07-23-1983 Screening for malign ant neoplasm of cervix [facility] Start: 1981 Urine microalbumin profile [facility] Start: 1980 Anxiety Screening Anxiety Screening [facility] Start: 1980 Depression Screening Depression Scre ening [facility] Start: 1980 HEPATITIS C SCREENING HEPATITIS C [facility] Start: 1980 Hepatitis C screening Hepatitis C [facility] Start: 1980 HIV SCREENING HIV SCREENING [facility] Start: 1980 HIV screening HIV Screening [facility] MG Breast - bilatera l Screening [facility] Work Phone: Patient Education ED URI, Viral, No Abx (Adult) [facility] Work Phone: Patient referral [facility] Work Phone: ROUTINE FLU A/B + RSV ROUTINE FL U A/B + RSV Lab Routine Upper respiratory tract infection, unspecified type Acute cough 10/31/2022 8:01 PM EDT [facility] Work Phone: SARS-CoV-2 (COVID-19 ) RNA [Presence] in Respiratory specimen by WILMER with probe detection COVID NAAT, UPPER RESPIRATORY, ROUTINE Microbiology Routine Upper respiratory tract infection, unspecified type Acute cough 10/31/2022 8:01 PM EDT [facility] Work Phone: Immunizations Immunization Date Immunization Notes Care Provider [facility] 01-25-2022 influenza virus vaccine, unspecified formulation Eva CHAO Work Phone: [facility] 01-22-2021 Covid (Pfizer) Dr. Lee Garcia Work Phone: [facility] Work Phone: 05-26-2020 Covid (Pfizer) Dr. Lee Garcia Work Phone: [facility] Work Phone: 04-30-2020 Covid (Pfizer) Dr. Lee Garcia Work Phone: [facility] Work Phone: 01-07-2019 influenza virus vaccine, unspecified formulation Sheelazackery Champion APRN.CNP Work Phone: [facility] 12-27-2016 influenza, seasonal, injectable Dr. Lee Garcia Work Phone: [facility] Work Phone: Payers Date Payer Category Payer Unknown [id number] 2024 Private Health Insurance LIMITED BENEFITS PLAN [id number] 2024 Unknown [id number] 2023 Self-pay [id number] 2023 Medicaid [id number]. [id number] 2023 Medicaid [id number] 2022 Unknown [id number] 2018 Unknown [id number] [id number]. [id number] 2015 Unknown [id number] 1962 Unknown [id number] 2.16.840.1.337478.3.579.2. 627 1962 Unknown [id number] 2.16840.1.863148.3.579.2. 627 1962 Unknown [id number] 2.16.840.1.749710.3.579.2. 627 1962 Unknown [id number] 2.16.840.1.714115.3.579.2. 651 Unknown [id number] 2.16.840.1.050337.3.579.2. 462 Unknown [id number] 2.16.840.1.827752.3.579.2. 462 Unknown [id number] 2.16.840.1.972998.3.579.2. 462 Unknown [id number] 2.16.840.1.768352.3.579.2. 462 Unknown [id number] 2.16.840.1.329292.3.579.2. 462 Unknown [id number] 2.16.840.1.397548.3.579.2. 462 Unknown [id number] 2.16.840.1.237298.3.579.2. 462 Unknown [id number] 2.16.840.1.581980.3.579.2. 462 Unknown [id number] 2.16.840.1.929639.3.579.2. 462 Unknown [id number] 2.16.840.1.938109.3.579.2. 462 Unknown [id number] 2.16.840.1.506125.3.579.2. 462 Unknown [id number] 2.16.840.1.445535.3.579.2. 462 Unknown [id number] 2.16.840.1.379115.3.579.2. 462 Unknown [id number] 2.16.840.1.721551.3.579.2. 462 Unknown [id number] 2.16.840.1.159438.3.579.2. 462 Unknown [id number] 2.16.840.1.437797.3.579.2. 462 Unknown [id number] 2.16.840.1.670915.3.579.2. 462 Unknown [id number] 2.16.840.1.511502.3.579.2. 462 Unknown [id number] 2.16.840.1.812011.3.579.2. 462 Unknown [id number] 2.16.840.1.745700.3.579.2. 462 Unknown [id number] 2.16.840.1.092024.3.579.2. 462 Unknown [id number] 2.16.840.1.077377.3.579.2. 462 Unknown [id number] 2.16.840.1.956431.3.579.2. 462 Unknown [id number] 2.16.840.1.124403.3.579.2. 462 Unknown [id number] 2.16.840.1.900457.3.579.2. 462 Social History Date Type Detail Facility Start: 08-03-2021 End: 10-30-2021 Tobacco smoking status MTIS Unknown if ever smoked [facility] Work Phone: Start: 12-27-2016 Occasional [facility] Work Phone: Start: 12-27-2016 None [facility] Work Phone: Start: 10-18-2019 Spouse/ Signif icant Other [facility] Work Phone: Start: 1960 Sex Assigned At Female A [facility] Start: 11-30-2021 End: 11-30-2022 Tobacco smoking status NHIS Never smoked tobacco [facility] Start: 11-30-2021 Tobacco use and exposure Smokeless tobacco non-user [facility] Start: 11-30-2021 End: 03-15-2024 Alcohol intake Current drinker of alcohol (finding) [facility] Start: 11-21-2020 Alcohol Comment 3 times weekly [facility] Start: 1960 Sex Assigned At Not on file [facility] Start: 01-18-2020 End: 10-31-2022 History of Social function [facility] Start: 01-18-2020 End: 10-31-2022 Tobacco use panel [facility] National Score (1-100), lower number is lower risk Not on file [facility] Medical Equipment Procedure Code Equipment Code Equipment Origin al Text Equipment Identifier Dates Izabela Linares [id number] Start: 11-23-2020 POD Bunionectomy w/Lapiplasty Arthrodesi [...] Assessment Result Facility 11-30-2022 Functional Status Independent [facility] 11-30-2022 Functional Status ice on [facility] 11-30-2022 Functional Status [facility]icoletal 11-30-2022 [facility] Date Assessment Result Facility 11-30-2022 Mental Status Orientation Oriented x 4 [facility] 11-30-2022 Mental Status [facility] Clinical Notes 11-23-2020 to 05-19-2024 Patient Theresa Amado Tech - 05/19/2024 7:10 PM EDTPEboni Huber APRN.CNP - 05/19/2024 7:04 PM EDTPatient Eboni Llanos APRN.CNP - 03/15/2024 1:59 PM EST Note Date & Type Note Facility 05-19-2024 Instructions Eboni White APRN.CNP - 05/19/2024 7:30 PM EDT {ASSESSMENT/PLAN: 1. Subacute cough - ICD9: 786.2, ICD10: R05.2 (primary diagnosis) - XR CHEST 2V FRONTAL/LAT IMPRESSION: No acute radiographic abnormality. [employer] Manager: GREG Transcribe Date/Time: May 19 2024 7:18P Dictated by : WHIT RON MD 2. Sinobronchitis - ICD9: 473.9, 490, ICD10: J32.9, J40 - Will begin treatment with as per antibiotic as written, see orders - Supportive care with plenty of fluids, rest, and analgesia prn. - AMOXICILLIN 875 MG-POTASSIUM CLAVULANATE 125 MG TABLET - PREDNISONE 20 MG TABLET Eboni White APRN.CNP documented in this encounter [facility] 05-19-2024 History of Present illness Narrative Radiology Service Progress Note PATIENT NAME: Connie Greenberg DATE OF SERVICE: May 19, 2024 TIME: 7:08 PM PATIENT IDENTITY VERIFICATION COMPLETED USING TWO (2) IDENTIFIERS: Name and Date of confirmed by patient verbally. FALL SCREENING: Has the patient had 2 falls in the last year or 1 fall with injury or currently using an Ambulatory Assistive Device (Walker, Cane, Wheelchair, Crutches, etc.)? No PATIENT GENDER DATA: Assigned female at . status: : No status: NO. PATIENT RELEVANT IMPLANT DATA REVIEWED: Not Applicable PATIENT PRESENTS WITH AN IMPLANTABLE OR ATTACHED VARNISHING MACHINE OPERATOR: No RADIOLOGY DEPARTMENT: General X-ray: Exam(s) Completed: Chest X-Ray PERIPHERAL IV DATA: Not applicable SIGNED BY: Warren Bran May 19, 2024 7:08 PM documented in this encounter [facility] 05-19-2024 Note HNO ID: [id number] Author: THERESA CORADO Tech Service: ? Author Type: Technologist Type: Progress Notes Filed: 05/19/2024 19:17 Note Text: Radiology Service Progress Note PATIENT NAME: Connie Greenberg DATE OF SERVICE: May 19, 2024 TIME: 7:08 PM PATIENT IDENTITY VERIFICATION COMPLETED USING TWO (2) IDENTIFIERS: Name and Date of confirmed by patient verbally. FALL SCREENING: Has the patient had 2 falls in the last year or 1 fall with injury or currently using an Ambulatory Assistive Device (Walker, Cane, Wheelchair, Crutches, etc.)? No PATIENT GENDER DATA: Assigned female at . status: : No status: NO. PATIENT RELEVANT IMPLANT DATA REVIEWED: Not Applicable PATIENT PRESENTS WITH AN IMPLANTABLE OR ATTACHED VARNISHING MACHINE OPERATOR: No RADIOLOGY DEPARTMENT: General X-ray: Exam(s) Completed: Chest X-Ray PERIPHERAL IV DATA: Not applicable SIGNED BY: Warren Bran May 19, 2024 7:08 PM [facility] 05-19-2024 Note HNO ID: [id number] Author: EBONI WHITE APRN.CARTOGRAPHIC DESIGNER Service: ? Author Type: Nurse Practitioner Type: Progress Notes Filed: 05/19/2024 19:45 Note Text: [facility] Subjective Connie Greenberg is a 63 year old female. Patient presents with: Sinus Problem: drainage, cough, fever x 2 weeks Sinus Problem Associated symptoms include chest pain (with cough), congestion, coughing and a fever. Pertinent negatives include no sore throat. Connie Greenberg is a 63 year old female who presents with a cough, chest congestion, sinus congestion and drainage for the past 2 weeks. She states she has had a fever at home for the past 3 days-around 100 degrees F. She is coughing up a lot of phlegm which is green in color. She has taken OTC mucinex cold/sinus. She has some pain in the center of her chest when she coughs and occasionally feels short of breath. Review of Systems Constitutional: Positive for fever. HENT: Positive for congestion and ear pain. Negative for sore throat. Respiratory: Positive for cough and shortness of breath. Cardiovascular: Positive for chest pain (with cough). Musculoskeletal: Negative. Objective BP 136/80 Pulse 82 Temp 36.7 ?C (98 ?F) Resp 16 Wt 72.6 kg (160 lb 0.9 oz) SpO2 97% BMI 29.27 kg/m? PAST MEDICAL HISTORY Diagnosis Date - Anxiety and depression - Arthritis - Asthma - Bipolar disorder (HCC) - CVA (cerebral vascular accident) (HCC) - Diarrhea, functional - GERD (gastroesophageal reflux disease) - Hiatal hernia - High cholesterol - Hypertension - Impaired cognition - Irritable bowel syndrome with both constipation and diarrhea - Sleep apnea - TIA (transient ischemic attack) 2016 PAST SURGICAL HISTORY Procedure Laterality Date - BX OF BREAST; INCISIONAL Left 1992 benign - ESOPHAGEAL MANOMETRY 03/10/2021 30% weak AND 30% ineffective swallows; Dr. Gonzales - FOOT SURGERY HX Left 11/23/2020 mid-foot arthrodesis, great toe tendon release and bunionectomy; Dr. Maravilla - HYSTERECTOMY HX ALLERGIES Bee Venom Protein (Honey Bee) MEDICATIONS - benzonatate (TESSALON PERLES) 100 mg capsule Take 1 capsule by mouth three times a day as needed for cough. (Patient not taking: Reported on 03/15/2024) - escitalopram oxalate (LEXAPRO) 10 mg tablet escitalopram 10 mg tablet TAKE 1 TABLET BY MOUTH DAILY - OTC PRODUCT Prevajen oral Extra strength - ADVAIR DISKUS 250-50 mcg/dose inhaler INHALE one INHALATION TWICE DAILY - nystatin (MYCOSTATIN) 100,000 unit/mL suspension Take 5 mL by mouth four times daily. 1tsp swish in mouth for several minutes, then swallow (or expectorate) 4 times daily until gone. (Patient not taking: Reported on 10/21/2023) - oxyCODONE-acetaminophen (PERCOCET) 5-325 mg tablet Take 1-2 tablets by mouth every 4 hours as needed. (Patient not taking: Reported on 04/27/2023) - gabapentin (NEURONTIN) 800 mg tablet Take 800 mg by mouth three times daily. (Patient not taking: Reported on 10/21/2023) - lamoTRIgine (LAMICTAL) 150 mg tablet Take 150 mg by mouth twice daily. - lisinopril (ZESTRIL, PRINIVIL) 10 mg tablet Take 10 mg by mouth once daily. - traZODone (DESYREL) 50 mg tablet Take 100 mg by mouth daily at bedtime. - melatonin 10 mg tab Take by mouth daily at bedtime. 10-20 mg - OLANZapine (ZYPREXA) 10 mg tablet Take 10 mg by mouth daily at bedtime. - ARIPiprazole (ABILIFY) 2 mg tablet Take 2 mg by mouth daily at bedtime. (Patient not taking: Reported on 04/06/2022) - carBAMazepine ER (CARBATROL) 200 mg 12 hr capsule Take 400 mg by mouth daily at bedtime. (Patient not taking: Reported on 04/06/2022) - hydrOXYzine pamoate (VISTARIL) 50 mg capsule Take 50 mg by mouth three times daily as needed. (Patient not taking: Reported on 10/21/2023) - lidocaine (LIDOCARE TOPICAL) Apply to affected area as needed. - eluxadoline (VIBERZI) 100 mg tab Take 50 mg by mouth as needed (diarrhea). (Patient not taking: Reported on 10/21/2023) - ondansetron (ZOFRAN) 4 mg tablet Take by mouth every 8 hours as needed for nausea/vomiting. (Patient not taking: Reported on 10/21/2023) - cyclobenzaprine (FLEXERIL) 10 mg tablet Take by mouth as needed. - Apple Cider Vinegar 500 mg tab Take by mouth once daily. (Patient not taking: Reported on 10/21/2023) - fluticasone propion-salmeterol (AIRDUO DIGIHALER) 113 mcg-14 mcg/actuation digihaler Inhale 1 Inhalation as instructed twice daily. - calcium carbonate (TUMS ORAL) Take by mouth as needed. - naproxen sodium 220 mg cap Take by mouth as needed (pain). 1-2 tablets - acetaminophen 650 mg CR tablet Take 1,300 mg by mouth every 8 hours as needed for pain. - COQ10, UBIQUINOL, ORAL Take 200 mg by mouth once daily. (Patient not taking: Reported on 10/21/2023) - pyridoxine, vitamin B6, (VITAMIN B6) 100 mg tablet Take 100 mg by mouth once daily. (Patient not taking: Reported on 10/21/2023) - cyanocobalamin (VITAMIN B-12) 500 mcg tablet Take by mouth once daily. - Cholecalciferol, V (more content not included)... [facility] 05-19-2024 History of Present illness Narrative [facility] Subjective Connie Greenberg is a 63 year old female. Patient presents with: Sinus Problem: drainage, cough, fever x 2 weeks Sinus Problem Associated symptoms include chest pain (with cough), congestion, coughing and a fever. Pertinent negatives include no sore throat. Connie Greenberg is a 63 year old female who presents with a cough, chest congestion, sinus congestion and drainage for the past 2 weeks. She states she has had a fever at home for the past 3 days-around 100 degrees F. She is coughing up a lot of phlegm which is green in color. She has taken OTC mucinex cold/sinus. She has some pain in the center of her chest when she coughs and occasionally feels short of breath. Review of Systems Constitutional: Positive for fever. HENT: Positive for congestion and ear pain. Negative for sore throat. Respiratory: Positive for cough and shortness of breath. Cardiovascular: Positive for chest pain (with cough). Musculoskeletal: Negative. Objective BP 136/80 Pulse 82 Temp 36.7 C (98 F) Resp 16 Wt 72.6 kg (160 lb 0.9 oz) SpO2 97% BMI 29.27 kg/m PAST MEDICAL HISTORY Diagnosis Date Anxiety and [...] Take 1 capsule by mouth three times a day as needed for cough. (Patient not taking: Reported on 03/15/2024) escitalopram oxalate (LEXAPRO) 10 mg tablet escitalopram 10 mg tablet TAKE 1 TABLET BY MOUTH DAILY OTC PRODUCT Prevajen oral Extra strength ADVAIR DISKUS 250-50 mcg/dose inhaler INHALE one INHALATION TWICE DAILY nystatin (MYCOSTATIN) 100,000 unit/mL suspension Take 5 mL by mouth four times daily. 1tsp swish in mouth for several minutes, then swallow (or expectorate) 4 times daily until gone. (Patient not taking: Reported on 10/21/2023) oxyCODONE-acetaminophen (PERCOCET) 5-325 mg tablet Take 1-2 tablets by mouth every 4 hours as needed. (Patient not taking: Reported on 04/27/2023) gabapentin (NEURONTIN) 800 mg tablet Take 800 mg by mouth three times daily. (Patient not taking: Reported on 10/21/2023) lamoTRIgine (LAMICTAL) 150 mg tablet Take 150 [...] as needed. (Patient not taking: Reported on 10/21/2023) lidocaine (LIDOCARE TOPICAL) Apply to affected area as needed. eluxadoline (VIBERZI) 100 mg tab Take 50 mg by mouth as needed (diarrhea). (Patient not taking: Reported on 10/21/2023) ondansetron (ZOFRAN) 4 mg tablet Take by mouth every 8 hours as needed for nausea/vomiting. (Patient not taking: Reported on 10/21/2023) cyclobenzaprine (FLEXERIL) 10 mg tablet Take by mouth as needed. Apple Cider Vinegar 500 mg tab Take by mouth once daily. (Patient not taking: Reported on 10/21/2023) fluticasone propion-salmeterol (AIRDUO DIGIHALER) 113 mcg-14 mcg/actuation [...] Take 200 mg by mouth once daily. (Patient not taking: Reported on 10/21/2023) pyridoxine, vitamin B6, (VITAMIN B6) 100 mg tablet Take 100 mg by mouth once daily. (Patient not taking: Reported on 10/21/2023) cyanocobalamin (VITAMIN B-12) 500 mcg tablet Take by mouth once daily. Cholecalciferol, Vitamin D3, 25 mcg (1,000 unit) cap Take 1,000 Units by mouth once daily. multivit with calcium,iron,min (WOMEN'S MULTIPLE VITAMINS ORAL) Take by mouth once daily. TURMERIC ORAL Take 500 mg by mouth once daily. (Patient not taking: Reported on 10/21/2023) oxybutynin ER (DITROPAN XL) 15 mg 24 [...] 20 mg by mouth daily at bedtime. FAMILY HISTORY Adopted: Yes Social History Tobacco Use Smoking status: Never Smokeless tobacco: Never Substance Use Topics Alcohol use: Yes Comment: 3 times weekly Drug use: Never Physical Exam Vitals and nursing note reviewed. Constitutional: General: She is not in acute distress. Appearance: Normal appearance. She is not ill-appearing. HENT: Right Ear: Tympanic membrane, ear canal and external ear normal. Left Ear: Tympanic membrane, ear canal and external ear normal. Nose: Mucosal edema, congestion and rhinorrhea present. Mouth/Throat: Mouth: Mucous membranes are moist. Pharynx: Oropharynx is clear. No oropharyngeal exudate or posterior oropharyngeal erythema. Cardiovascular: Rate and Rhythm: Normal rate and regular rhythm. Heart sounds: Normal heart sounds. Pulmonary: Effort: Pulmonary effort is normal. No respiratory distress. Breath sounds: Examination of the right-lower field reveals decreased breath sounds. Examination of the left-lower field reveals decreased breath sounds. Decreased breath sounds present. No wheezing or rales. Lymphadenopathy: Cervical: No cervical adenopathy. Skin: General: Skin is warm and dry. Findings: No erythema or rash. Neurological: Mental Status: She is alert. {ASSESSMENT/PLAN: 1. Subacute cough - ICD9: 786.2, ICD10: R05.2 (primary diagnosis) - XR CHEST 2V FRONTAL/LAT IMPRESSION: No acute radiographic abnormality. [employer] Manager: GREG Transcribe Date/Time: May 19 2024 7:18P Dictated by : WHIT RON MD 2. Sinobronchitis - ICD9: 473.9, 490, ICD10: J32.9, J40 - Will begin treatment with as per antibiotic as written, see orders - Supportive care with plenty of fluids, rest, and analgesia prn. - AMOXICILLIN 875 MG-POTASSIUM CLAVULANATE 125 MG TABLET - PREDNISONE 20 MG TABLET Eboni Haddad-Wolf PRACTICE MANAGER.CARTOGRAPHIC DESIGNER History and Record Review Systemic symptoms present included: fever Management I performed an independent interpretation of the following:imaging Imaging: My interpretation is see plan Disposition The patient was discharged. OTC Medications were advised: Continue mucinex Procedures documented in this encounter [facility] 03-15-2024 Instructions Eboni White APRN.CNP - 03/15/2024 2:24 PM EST ASSESSMENT/PLAN: 1. Fever in other diseases - ICD9: 780.61, ICD10: R50.81 (primary diagnosis) - INFLUENZA A&B MOLECULAR (POC)- positive in office. Fever less than 24 hours: will treat with Tamiflu. 2. Bacterial sinusitis - ICD9: 473.9, 041.9, ICD10: J32.9, B96.89 - Will begin treatment with as per antibiotic as written, see orders - Supportive care with plenty of fluids, rest, and analgesia prn. - AMOXICILLIN 875 MG-POTASSIUM CLAVULANATE 125 MG TABLET 3. Influenza A - ICD9: 487.1, ICD10: J10.1 - OSELTAMIVIR 75 MG CAPSULE - Follow-up with your PCP in 3-5 days if symptoms have not improved or sooner if symptoms worsen - Discussed red flags and need for immediate medical evaluation if any occur. - Discussed supportive care treatment with fluids, rest and analgesia. - Discussed expected course of illness Eboni White APRN.[facility] PATIENT INFO INFLUENZA INTRODUCTION Influenza (commonly called the flu) is a highly contagious illness that can occur in children or adults of any age. It occurs more often in the winter months because people spend more time in close contact with one another. The flu is spread easily from teznfe-aw-cxayzy by coughing, sneezing, or touching surfaces. Every year, complications of the flu require more than 200,000 people in the [place] to be hospitalized. Serious illness is more likely in the very young, older adults, women, and people who have certain health problems such as asthma or other forms of lung disease. There have been several widespread flu outbreaks (called pandemics), which led to the deaths of many people worldwide. These outbreaks occurred when new strains of influenza viruses formed (often from pigs or birds) and humans became infected because they had no immunity to these viruses. FLU SYMPTOMS Symptoms of seasonal flu can vary from person to person, but usually include: Fever (temperature higher than 100 F or 37.8 C) Headache and muscle aches Fatigue Cough and sore throat may also be present People with the flu usually have a fever for two to five days. This is different than fever caused by other upper respiratory viruses, which usually resolve after 24 to 48 hours. Some people have cold-like symptoms (runny nose, sore throat) during the flu while others have fever and muscle aches. Flu symptoms usually improve over two to five days, although the illness may last for a week or more. Weakness and fatigue may persist for several weeks Flu complications -- Complications of influenza occur in some people; pneumonia is the most common complication. Pneumonia is a serious infection of the lungs, and is more likely to occur in people over the age of 65, people who live in remote computer terminal operator care facilities (nursing homes), and those with other illnesses such as diabetes or conditions affecting the heart or lungs. FLU DIAGNOSIS Influenza is usually diagnosed based on symptoms (fever, cough and muscle aches). Lab testing for influenza is performed in certain cases, such as during a new influenza outbreak in a community. FLU TREATMENT When to seek help -- Most people with the flu recover within one to two weeks without treatment. However, serious complications of the flu can occur. Call your doctor or nurse immediately if: You feel short of breath or have trouble breathing You have pain or pressure in your chest or stomach You have signs of being dehydrated, such as dizziness when standing or not passing urine You feel confused You cannot stop vomiting or you cannot drink enough fluids There are several groups of people who are at increased risk for flu complications. These include women, young children (<5 years of age, and especially <2 years of age), people >=65 years of age, and people with certain diseases such as chronic lung disease (such as asthma), heart disease, diabetes, immunosuppressing conditions (such as HIV infection or transplantation), and some other diseases. If you or your child has flu symptoms and is at increased risk of flu complications, you should call your healthcare provider. Treat symptoms -- Treating the symptoms of influenza can help you to feel better, but will not make the flu go away faster. Rest until the flu is fully resolved, especially if the illness has been severe Fluids -- Drink enough fluids so that you do not become dehydrated. One way to manager service desk if you are drinking enough is to look at the color of your urine. Normally, urine should be light yellow to nearly colorless. If you are drinking enough, you should pass urine every three to five hours. Acetaminophen (such as Tylenol and other brands) can relieve fever, headache, and muscle aches. Aspirin, and medicines that include aspirin (eg, bismuth subsalicylate; PeptoBismol), are not recommended for children under 18 because aspirin can lead to a serious disease called Brandy syndrome. Cough medicines are not usually helpful; cough usually resolves without treatment. We do not recommend cough or cold medicine for children under age six years. Antiviral treatment -- Antiviral medicines can be used to treat or prevent influenza. When used as a treatment, the medicine does not eliminate flu symptoms, although it can reduce the severity and duration of symptoms by about one day. Not every person with influenza needs an antiviral medicine; the decision is based upon your risk of developing complications of influenza. Antiviral treatment is most effective for seasonal influenza when it is taken within the first 48 hours of flu symptoms. Side effects -- Zanamivir and oseltamivir can cause mild side effects, including nausea and vomiting; zanamivir, which is inhaled, can cause difficulty breathing in some cases. Most people are able to continue the medicine despite the side effects. Antibiotics -- Antibiotics are NOT useful for treating viral illnesses such as influenza. Antibiotics should only used if there is a bacterial complication of the flu such as bacterial pneumonia, ear infection, or sinusitis. Antibiotics can cause side effects and lead to development of antibiotic resistance. documented in this encounter [facility] 03-15-2024 Note HNO ID: [id number] Author: EBONI WHITE APRN.MARIA ISABEL Service: ? Author Type: Nurse Practitioner Type: Progress Notes Filed: 03/15/2024 14:36 Note Text: Subjective Cough Associated symptoms include headaches. Pertinent negatives include no chest pain, no chills, no ear pain, no sore throat and no myalgias. Connie Greenberg is a 63 year old female who presents with 2 weeks of sinus congestion and pressure and cough. Notes thick and green nasal drainage. Was exposed to influenza A in grandchildren 2 days ago. Yesterday she developed a fever and worsening cough. She has been taking Nyquil and an OTC cough/sinus medication. Review of Systems Constitutional: Positive for fever and malaise/fatigue. Negative for chills. HENT: Positive for congestion and sinus pain. Negative for ear pain and sore throat. Respiratory: Positive for cough. Cardiovascular: Negative for chest pain. Gastrointestinal: Negative for diarrhea, nausea and vomiting. Musculoskeletal: Negative for myalgias. Neurological: Positive for headaches. BP 160/88 Pulse 100 Temp (!) 38.2 ?C (100.7 ?F) Resp 20 Wt 76.4 kg (168 lb 6.9 oz) SpO2 97% BMI 30.81 kg/m? PAST MEDICAL HISTORY Diagnosis Date Anxiety and [...] mcg/dose inhaler INHALE one INHALATION TWICE DAILY lamoTRIgine (LAMICTAL) 150 mg tablet Take 150 mg by mouth twice daily. lisinopril (ZESTRIL, PRINIVIL) 10 mg tablet Take 10 mg by mouth once daily. traZODone (DESYREL) 50 mg tablet Take 100 mg by mouth daily at bedtime. melatonin 10 mg tab Take by mouth daily at bedtime. 10-20 mg OLANZapine (ZYPREXA) 10 mg tablet Take 10 mg by mouth daily at bedtime. lidocaine (LIDOCARE TOPICAL) Apply to affected area as needed. cyclobenzaprine (FLEXERIL) 10 mg tablet Take by mouth as needed. fluticasone propion-salmeterol (AIRDUO DIGIHALER) 113 mcg-14 mcg/actuation digihaler Inhale 1 Inhalation as instructed twice daily. calcium carbonate (TUMS ORAL) Take by mouth as needed. naproxen sodium 220 mg cap Take by mouth as needed (pain). 1-2 tablets acetaminophen 650 mg CR tablet Take 1,300 mg by mouth every 8 hours as needed for pain. cyanocobalamin (VITAMIN B-12) 500 mcg tablet Take by mouth once daily. Cholecalciferol, Vitamin D3, 25 mcg (1,000 unit) cap Take 1,000 Units by mouth once daily. multivit with calcium,iron,min (WOMEN'S MULTIPLE VITAMINS ORAL) Take by mouth once daily. oxybutynin ER (DITROPAN [...] 20 mg by mouth daily at bedtime. amoxicillin-clavulanate potassium (AUGMENTIN) 875-125 mg per tablet Take 1 tablet by mouth two times a day for 5 days. benzonatate (TESSALON PERLES) 100 mg capsule Take 1 capsule by mouth three times a day as needed for cough. (Patient not taking: Reported on 03/15/2024) nystatin (MYCOSTATIN) 100,000 unit/mL suspension Take 5 mL by mouth four times daily. 1tsp swish in mouth for several minutes, then swallow (or expectorate) 4 times daily until gone. (Patient not taking: Reported on 10/21/2023) oxyCODONE-acetaminophen (PERCOCET) 5-325 mg tablet Take 1-2 tablets by mouth every 4 hours as needed. (Patient not taking: Reported on 04/27/2023) gabapentin (NEURONTIN) 800 mg tablet Take 800 mg by mouth three times daily. (Patient not taking: Reported on 10/21/2023) ARIPiprazole (ABILIFY) 2 mg tablet Take 2 mg by mouth daily at bedtime. (Patient not taking: Reported on 04/06/2022) carBAMazepine ER (CARBATROL) 200 mg 12 hr capsule Take 400 mg by mouth daily at bedtime. (Patient not taking: R (more content not included)... [facility] 03-15-2024 History of Present illness Narrative Subjective Cough Associated symptoms include headaches. Pertinent negatives include no chest pain, no chills, no ear pain, no sore throat and no myalgias. Connie Greenberg is a 63 year old female who presents with 2 weeks of sinus congestion and pressure and cough. Notes thick and green nasal drainage. Was exposed to influenza A in grandchildren 2 days ago. Yesterday she developed a fever and worsening cough. She has been taking Nyquil and an OTC cough/sinus medication. Review of Systems Constitutional: Positive for fever and malaise/fatigue. Negative for chills. HENT: Positive for congestion and sinus pain. Negative for ear pain and sore throat. Respiratory: Positive for cough. Cardiovascular: Negative for chest pain. Gastrointestinal: Negative for diarrhea, nausea and vomiting. Musculoskeletal: Negative for myalgias. Neurological: Positive for headaches. BP 160/88 Pulse 100 Temp (!) 38.2 C (100.7 F) Resp 20 Wt 76.4 kg (168 lb 6.9 oz) SpO2 97% BMI 30.81 kg/m PAST MEDICAL HISTORY Diagnosis Date Anxiety and [...] mcg/dose inhaler INHALE one INHALATION TWICE DAILY lamoTRIgine (LAMICTAL) 150 mg tablet Take 150 mg by mouth twice daily. lisinopril (ZESTRIL, PRINIVIL) 10 mg tablet Take 10 mg by mouth once daily. traZODone (DESYREL) 50 mg tablet Take 100 mg by mouth daily at bedtime. melatonin 10 mg tab Take by mouth daily at bedtime. 10-20 mg OLANZapine (ZYPREXA) 10 mg tablet Take 10 mg by mouth daily at bedtime. lidocaine (LIDOCARE TOPICAL) Apply to affected area as needed. cyclobenzaprine (FLEXERIL) 10 mg tablet Take by mouth as needed. fluticasone propion-salmeterol (AIRDUO DIGIHALER) 113 mcg-14 mcg/actuation digihaler Inhale 1 Inhalation as instructed twice daily. calcium carbonate (TUMS ORAL) Take by mouth as needed. naproxen sodium 220 mg cap Take by mouth as needed (pain). 1-2 tablets acetaminophen 650 mg CR tablet Take 1,300 mg by mouth every 8 hours as needed for pain. cyanocobalamin (VITAMIN B-12) 500 mcg tablet Take by mouth once daily. Cholecalciferol, Vitamin D3, 25 mcg (1,000 unit) cap Take 1,000 Units by mouth once daily. multivit with calcium,iron,min (WOMEN'S MULTIPLE VITAMINS ORAL) Take by mouth once daily. oxybutynin ER (DITROPAN [...] 20 mg by mouth daily at bedtime. amoxicillin-clavulanate potassium (AUGMENTIN) 875-125 mg per tablet Take 1 tablet by mouth two times a day for 5 days. benzonatate (TESSALON PERLES) 100 mg capsule Take 1 capsule by mouth three times a day as needed for cough. (Patient not taking: Reported on 03/15/2024) nystatin (MYCOSTATIN) 100,000 unit/mL suspension Take 5 mL by mouth four times daily. 1tsp swish in mouth for several minutes, then swallow (or expectorate) 4 times daily until gone. (Patient not taking: Reported on 10/21/2023) oxyCODONE-acetaminophen (PERCOCET) 5-325 mg tablet Take 1-2 tablets by mouth every 4 hours as needed. (Patient not taking: Reported on 04/27/2023) gabapentin (NEURONTIN) 800 mg tablet Take 800 mg by mouth three times daily. (Patient not taking: Reported on 10/21/2023) ARIPiprazole (ABILIFY) 2 mg tablet Take 2 mg by mouth daily at bedtime. (Patient not taking: Reported on 04/06/2022) carBAMazepine ER (CARBATROL) 200 mg 12 hr capsule Take 400 mg by mouth daily at bedtime. (Patient not taking: Reported on 04/06/2022) hydrOXYzine pamoate (VISTARIL) 50 mg capsule Take 50 mg by mouth three times daily as needed. (Patient not taking: Reported on 10/21/2023) eluxadoline (VIBERZI) 100 mg tab Take 50 mg by mouth as needed (diarrhea). (Patient not taking: Reported on 10/21/2023) ondansetron (ZOFRAN) 4 mg tablet Take by mouth every 8 hours as needed for nausea/vomiting. (Patient not taking: Reported on 10/21/2023) Apple Cider Vinegar 500 mg tab Take by mouth once daily. (Patient not taking: Reported on 10/21/2023) COQ10, UBIQUINOL, ORAL Take 200 mg by mouth once daily. (Patient not taking: Reported on 10/21/2023) pyridoxine, vitamin B6, (VITAMIN B6) 100 mg tablet Take 100 mg by mouth once daily. (Patient not taking: Reported on 10/21/2023) TURMERIC ORAL Take 500 mg by mouth once daily. (Patient not taking: Reported on 10/21/2023) FAMILY HISTORY Adopted: Yes Social History Tobacco Use Smoking status: Never Smokeless tobacco: Never Substance Use Topics Alcohol use: Yes Comment: 3 times weekly Drug use: Never Objective Physical Exam Vitals and nursing note reviewed. Constitutional: Appearance: Normal appearance. HENT: Right Ear: Tympanic membrane, ear canal and external ear normal. Left Ear: Tympanic membrane, ear canal and external ear normal. Nose: Nasal tenderness, mucosal edema, congestion and rhinorrhea present. Mouth/Throat: Mouth: Mucous membranes are moist. Pharynx: Oropharynx is clear. Uvula midline. No oropharyngeal exudate or posterior oropharyngeal erythema. Cardiovascular: Rate and Rhythm: Normal rate and regular rhythm. Heart sounds: Normal heart sounds. Pulmonary: Effort: Pulmonary effort is normal. No respiratory distress. Breath sounds: Normal breath sounds. No wheezing or rales. Musculoskeletal: Cervical back: Neck supple. Lymphadenopathy: Cervical: No cervical adenopathy. Skin: General: Skin is warm and dry. Findings: No erythema or rash. Neurological: Mental Status: She is alert. ASSESSMENT/PLAN: 1. Fever in other diseases - ICD9: 780.61, ICD10: R50.81 (primary diagnosis) - INFLUENZA A&B MOLECULAR (POC)- positive in office. Fever less than 24 hours: will treat with Tamiflu. 2. Bacterial sinusitis - ICD9: 473.9, 041.9, ICD10: J32.9, B96.89 - Will begin treatment with as per antibiotic as written, see orders - Supportive care with plenty of fluids, rest, and analgesia prn. - AMOXICILLIN 875 MG-POTASSIUM CLAVULANATE 125 MG TABLET 3. Influenza A - ICD9: 487.1, ICD10: J10.1 - OSELTAMIVIR 75 MG CAPSULE - Follow-up with your PCP in 3-5 days if symptoms have not improved or sooner if symptoms worsen - Discussed red flags and need for immediate medical evaluation if any occur. - Discussed supportive care treatment with fluids, rest and analgesia. - Discussed expected course of illness Eboni White APRN.CARTOGRAPHIC DESIGNER documented in this encounter [facility] 10-21-2023 Note HNO ID: [id number] Author: LOUISE MARADIAGA APRN.MARIA ISABEL Service: ? Author Type: Nurse Practitioner Type: Progress Notes Filed: 10/21/2023 15:54 Note Text: Patient presents with: Cough: Chest congestion, CASPER x 7 days SUBJECTIVE: Connie Greenberg is a 63 year old year old female who presents for the past 1 week with symptoms that are:gradually worsening. Ill x 1 week Around grandkids, also sick with URI sx Cough, congestion Fever developed in last day - congestion worsening Taking tylenol with minimal relief Very fatigued Risk factors: none Social History Tobacco Use Smoking status: Never Smokeless tobacco: Never Substance Use Topics Alcohol use: Yes Comment: 3 times weekly Drug use: Never PAST MEDICAL HISTORY No date: Anxiety and depression No date: Arthritis No date: Asthma No date: Bipolar disorder (HCC) No date: CVA (cerebral vascular accident) (HCC) No date: Diarrhea, functional No date: GERD (gastroesophageal reflux disease) No date: Hiatal hernia No date: High cholesterol No date: Hypertension No date: Impaired cognition No date: Irritable bowel syndrome with both constipation and diarrhea No date: Sleep apnea 2017: TIA (transient ischemic attack) 10/21/23 1511 BP: 118/70 Pulse: 76 Resp: 20 Temp: 36.3 ?C (97.4 ?F) SpO2: 97% Weight: 79.8 kg (175 lb 14.8 oz) ALLERGIES Allergen Reactions Bee Venom Protein (* Shortness of Breath Medications: escitalopram oxalate (LEXAPRO) 10 mg tablet escitalopram 10 mg tablet TAKE 1 TABLET BY MOUTH DAILY OTC PRODUCT Prevajen oral Extra strength ADVAIR DISKUS 250-50 mcg/dose inhaler INHALE one INHALATION TWICE DAILY lamoTRIgine (LAMICTAL) 150 mg tablet Take 150 mg by mouth twice daily. lisinopril (ZESTRIL, PRINIVIL) 10 mg tablet Take 10 mg by mouth once daily. traZODone (DESYREL) 50 mg tablet Take 100 mg by mouth daily at bedtime. melatonin 10 mg tab Take by mouth daily at bedtime. 10-20 mg OLANZapine (ZYPREXA) 10 mg tablet Take 10 mg by mouth daily at bedtime. lidocaine (LIDOCARE TOPICAL) Apply to affected area as needed. cyclobenzaprine (FLEXERIL) 10 mg tablet Take by mouth as needed. fluticasone propion-salmeterol (AIRDUO DIGIHALER) 113 mcg-14 mcg/actuation digihaler Inhale 1 Inhalation as instructed twice daily. calcium carbonate (TUMS ORAL) Take by mouth as needed. naproxen sodium 220 mg cap Take by mouth as needed (pain). 1-2 tablets acetaminophen 650 mg CR tablet Take 1,300 mg by mouth every 8 hours as needed for pain. cyanocobalamin (VITAMIN B-12) 500 mcg tablet Take by mouth once daily. Cholecalciferol, Vitamin D3, 25 mcg (1,000 unit) cap Take 1,000 Units by mouth once daily. multivit with calcium,iron,min (WOMEN'S MULTIPLE VITAMINS ORAL) Take by mouth once daily. oxybutynin ER (DITROPAN [...] 20 mg by mouth daily at bedtime. amoxicillin-clavulanate potassium (AUGMENTIN) 875-125 mg per tablet Take 1 tablet by mouth every 12 hours for 7 days. benzonatate (TESSALON PERLES) 100 mg capsule Take 1 capsule by mouth three times a day as needed for cough. nystatin (MYCOSTATIN) 100,000 unit/mL suspension Take 5 mL by mouth four times daily. 1tsp swish in mouth for several minutes, then swallow (or expectorate) 4 times daily until gone. (Patient not taking: Reported on 10/21/2023) oxyCODONE-acetaminophen (PERCOCET) 5-325 mg tablet Take 1-2 tablets by mouth every 4 hours as needed. (Patient not taking: Reported on 04/27/2023) gabapentin (NEURONTIN) 800 mg tablet Take 800 mg by mouth three times daily. (Patient not taking: Reported on 10/21/2023) ARIPiprazole (ABILIFY) 2 mg tablet Take 2 mg by mouth daily at bedtime. (Patient not taking: Reported on 04/06/2022) carBAMazepine ER (CARBATROL) 200 mg 12 hr capsule Take 400 mg by mouth daily at bedtime. (Patient not taking: Reported on 04/06/2022) hydrOXYzine pamoate (VISTARIL) 50 mg capsule Take 50 mg by mouth three times daily as needed. (Patient not taking: Reported on 10/21/2023) eluxadoline (VIBERZI) 100 mg tab Take 50 mg by mouth as needed (diarrhea). (Patient not taking: Reported on 10/21/2023) ondansetron (ZOFRAN) 4 mg tablet Take by mouth every 8 hours as needed for nausea/vomiting. (Patient not taking: Reported on 10/21/2023) Apple Cider Vinegar 500 mg tab Take by mouth once daily. (Patient not taking: Reported on 10/21/2023) COQ10, UBIQUINOL, ORAL (more content not included)... [facility] 10-21-2023 History of Present illness Narrative Patient presents with: Cough: Chest congestion, CASPER x 7 days SUBJECTIVE: Connie Greenberg is a 63 year old year old female who presents for the past 1 week with symptoms that are:gradually worsening. Ill x 1 week Around grandkids, also sick with URI sx Cough, congestion Fever developed in last day - congestion worsening Taking tylenol with minimal relief Very fatigued Risk factors: none Social History Tobacco Use Smoking status: Never Smokeless tobacco: Never Substance Use Topics Alcohol use: Yes Comment: 3 times weekly Drug use: Never PAST MEDICAL HISTORY No date: Anxiety and depression No date: Arthritis No date: Asthma No date: Bipolar disorder (HCC) No date: CVA (cerebral vascular accident) (HCC) No date: Diarrhea, functional No date: GERD (gastroesophageal reflux disease) No date: Hiatal hernia No date: High cholesterol No date: Hypertension No date: Impaired cognition No date: Irritable bowel syndrome with both constipation and diarrhea No date: Sleep apnea 2017: TIA (transient ischemic attack) 10/21/23 1511 BP: 118/70 Pulse: 76 Resp: 20 Temp: 36.3 C (97.4 F) SpO2: 97% Weight: 79.8 kg (175 lb 14.8 oz) ALLERGIES Allergen Reactions Bee Venom Protein (* Shortness of Breath Medications: escitalopram oxalate (LEXAPRO) 10 mg tablet escitalopram 10 mg tablet TAKE 1 TABLET BY MOUTH DAILY OTC PRODUCT Prevajen oral Extra strength ADVAIR DISKUS 250-50 mcg/dose inhaler INHALE one INHALATION TWICE DAILY lamoTRIgine (LAMICTAL) 150 mg tablet Take 150 mg by mouth twice daily. lisinopril (ZESTRIL, PRINIVIL) 10 mg tablet Take 10 mg by mouth once daily. traZODone (DESYREL) 50 mg tablet Take 100 mg by mouth daily at bedtime. melatonin 10 mg tab Take by mouth daily at bedtime. 10-20 mg OLANZapine (ZYPREXA) 10 mg tablet Take 10 mg by mouth daily at bedtime. lidocaine (LIDOCARE TOPICAL) Apply to affected area as needed. cyclobenzaprine (FLEXERIL) 10 mg tablet Take by mouth as needed. fluticasone propion-salmeterol (AIRDUO DIGIHALER) 113 mcg-14 mcg/actuation digihaler Inhale 1 Inhalation as instructed twice daily. calcium carbonate (TUMS ORAL) Take by mouth as needed. naproxen sodium 220 mg cap Take by mouth as needed (pain). 1-2 tablets acetaminophen 650 mg CR tablet Take 1,300 mg by mouth every 8 hours as needed for pain. cyanocobalamin (VITAMIN B-12) 500 mcg tablet Take by mouth once daily. Cholecalciferol, Vitamin D3, 25 mcg (1,000 unit) cap Take 1,000 Units by mouth once daily. multivit with calcium,iron,min (WOMEN'S MULTIPLE VITAMINS ORAL) Take by mouth once daily. oxybutynin ER (DITROPAN [...] 20 mg by mouth daily at bedtime. amoxicillin-clavulanate potassium (AUGMENTIN) 875-125 mg per tablet Take 1 tablet by mouth every 12 hours for 7 days. benzonatate (TESSALON PERLES) 100 mg capsule Take 1 capsule by mouth three times a day as needed for cough. nystatin (MYCOSTATIN) 100,000 unit/mL suspension Take 5 mL by mouth four times daily. 1tsp swish in mouth for several minutes, then swallow (or expectorate) 4 times daily until gone. (Patient not taking: Reported on 10/21/2023) oxyCODONE-acetaminophen (PERCOCET) 5-325 mg tablet Take 1-2 tablets by mouth every 4 hours as needed. (Patient not taking: Reported on 04/27/2023) gabapentin (NEURONTIN) 800 mg tablet Take 800 mg by mouth three times daily. (Patient not taking: Reported on 10/21/2023) ARIPiprazole (ABILIFY) 2 mg tablet Take 2 mg by mouth daily at bedtime. (Patient not taking: Reported on 04/06/2022) carBAMazepine ER (CARBATROL) 200 mg 12 hr capsule Take 400 mg by mouth daily at bedtime. (Patient not taking: Reported on 04/06/2022) hydrOXYzine pamoate (VISTARIL) 50 mg capsule Take 50 mg by mouth three times daily as needed. (Patient not taking: Reported on 10/21/2023) eluxadoline (VIBERZI) 100 mg tab Take 50 mg by mouth as needed (diarrhea). (Patient not taking: Reported on 10/21/2023) ondansetron (ZOFRAN) 4 mg tablet Take by mouth every 8 hours as needed for nausea/vomiting. (Patient not taking: Reported on 10/21/2023) Apple Cider Vinegar 500 mg tab Take by mouth once daily. (Patient not taking: Reported on 10/21/2023) COQ10, UBIQUINOL, ORAL Take 200 mg by mouth once daily. (Patient not taking: Reported on 10/21/2023) pyridoxine, vitamin B6, (VITAMIN B6) 100 mg tablet Take 100 mg by mouth once daily. (Patient not taking: Reported on 10/21/2023) TURMERIC ORAL Take 500 mg by mouth once daily. (Patient not taking: Reported on 10/21/2023) Review of Systems Constitutional: Positive for fever and malaise/fatigue. Negative for chills. HENT: Positive for congestion and sinus pain. Negative for sore throat. Respiratory: Positive for cough and sputum production. Negative for shortness of breath and wheezing. Cardiovascular: Negative for chest pain. Gastrointestinal: Negative for diarrhea, nausea and vomiting. Neurological: Positive for headaches. Negative for dizziness. Physical Exam Vitals and nursing note reviewed. Constitutional: General: She is not in acute distress. HENT: Head: Normocephalic. Right Ear: External ear normal. Left Ear: External ear normal. Nose: Mucosal edema present. Right Sinus: Maxillary sinus tenderness and frontal sinus tenderness present. Left Sinus: Maxillary sinus tenderness and frontal sinus tenderness present. Mouth/Throat: Lips: [place]. Mouth: Oropharynx is clear and moist. Pharynx: Uvula midline. No oropharyngeal exudate. Eyes: General: Right eye: No discharge. Left eye: No discharge. Conjunctiva/sclera: Conjunctivae normal. Cardiovascular: Rate and Rhythm: Normal rate and regular rhythm. Heart sounds: Normal heart sounds. Pulmonary: Effort: Pulmonary effort is normal. No respiratory distress. Breath sounds: Normal breath sounds. No wheezing or rales. Musculoskeletal: Cervical back: Neck supple. Lymphadenopathy: Cervical: No cervical adenopathy. Skin: General: Skin is warm and dry. Findings: No rash. Neurological: Mental Status: She is alert and oriented to person, place, and time. ASSESSMENT/PLAN: 1. Bacterial sinusitis - ICD9: 473.9, 041.9, ICD10: J32.9, B96.89 - Will begin treatment with Augmentin 875 mg PO BID for 7 days - The patient should also be given nasal saline gtts and suction prn for the first 5-7 days of treatment. - Supportive care with plenty of fluids, rest, and analgesia prn. - Follow up in 3-5 days if symptoms persist or worsen. Louise Maradiaga APRN.MARIA ISABEL documented in this encounter [facility] 10-21-2023 Instructions Louise Maradiaga APRN.CNP - 10/21/2023 3:20 PM EDT Each of us has four paired cavities (spaces) in our head that are connected to the nose by narrow channels. These cavities, known as sinuses, produce a thin mucus that drains out of the channels of the nose. Normally, sinuses are filled with air. But when sinuses become blocked and filled with fluid, bacteria can grow and cause an infection (sinusitis). Conditions that cause sinus blockage include the common cold, allergic rhinitis (swelling of the lining of the nose due to allergies), nasal polyps (small growths in the lining of the nose), or deviated septum (a shift in the nasal cavity). Allergies such as hay fever can also cause swelling and poor drainage of the sinuses. If you have symptoms that involve the sinuses, it may be difficult to tell if you have sinusitis, a cold, or a nasal allergy. This article will describe the symptoms, diagnosis, and treatment of sinusitis, and how to distinguish sinusitis from a cold or nasal allergy. What is sinusitis? Sinusitis is an inflammation, or swelling, of the tissue lining the sinuses. There are two types of sinusitis: Acute sinusitis: a sudden onset of cold symptoms such as runny nose, stuffy nose, and facial pain that does not go away after 7-10 days. It responds well to antibiotics and decongestants. Chronic sinusitis: characterized by nasal congestion, drainage, facial pain/pressure, and decreased sense of smell for at least 12 weeks. Who gets sinusitis? About 37 million Americans suffer from at least one episode of sinusitis each year. People who have the following conditions have a higher risk of sinusitis: Nasal mucus membrane swelling, as from a common cold Blockage of drainage ducts Structure differences that narrow the drainage ducts Conditions that result in an increased risk of infection In children, common environmental factors that contribute to sinusitis include allergies, illness from other children at day care or school, pacifiers, bottle drinking while lying on the back, and smoke in the environment. In adults, the contributing factors are most frequently infections, allergies, and smoking. What are the signs and symptoms of acute sinusitis? The primary symptoms of acute sinusitis include: Facial pain/pressure Nasal stuffiness Nasal discharge Loss of smell Cough/congestion Additional symptoms may include: Fever Bad breath Fatigue Dental pain Acute sinusitis can last four weeks or more. This condition may be diagnosed when a person has two or more symptoms and/or the presence of thick, green, or yellow nasal discharge. What are the signs and symptoms of chronic sinusitis? People with chronic sinusitis may have the following symptoms for 12 weeks or more: Facial congestion/fullness A nasal obstruction/blockage Pus in the nasal cavity Fever Nasal discharge/discolored postnasal drainage Additional symptoms may include: Headaches Bad breath Fatigue Dental pain Thick nasal discharge How is sinusitis treated? Acute sinusitis. If you have a simple sinusitis infection, your health care provider may recommend treatment with decongestants like Sudafed and steam inhalations alone, as most sinusitis is viral. Antibiotics are generally needed for more seriously ill patients. If antibiotics are administered, they are given for 10 to 14 days. With treatment, the symptoms usually disappear and antibiotics are no longer required. Oral and topical decongestants may be prescribed to alleviate the symptoms. Use of prescription intranasal steroid sprays might be effective in controlling symptoms. However, non-prescription drops or sprays should not be used beyond their recommended period--usually four to five days--or they may actually increase congestion. Chronic sinusitis. Warm moist air may alleviate sinus congestion. Using a vaporizer or inhaling steam from a florez of boiling water (removed from heat) may also help. Warm compresses are useful to relieve pain in the nose and sinuses. Saline nose drops are also safe for home use. Nonprescription drops or sprays might be effective in controlling symptoms; however, they should not be used beyond their recommended period of time. Nasal steroid sprays that shrink swollen membranes of the nose are beneficial. Antibiotics may also be prescribed. Avoidance of triggers is important. Allergies should be controlled and irritants, such as smoke, should be avoided. documented in this encounter [facility] 04-29-2023 History of Present illness Narrative Patient presents with: Conjunctivitis: Bilateral x x3 days HPI: Feeling sick for 1 week with viral URI symptoms. She was seen here 04/27/23. COVID/flu/RSV negative. She has been vomiting the last 4 days. She returns today because her eye symptoms are worse despite using polytrim drops. She also started augmentin last night because of worsening sinus pressure. Positive symptoms: Cough, Headache, Nausea, Vomiting, left eye vision is blurry, Nasal Congestion, sometimes feels dizzy Negative symptoms: blood in urine or stool (did not check emesis which was significant over night), Takes daily aspirin. MEDICATIONS: Current Outpatient Medications Medication Sig amoxicillin-clavulanate potassium (AUGMENTIN) 875-125 mg per tablet Take 1 tablet by mouth two times a day for 7 days. Patient should start on April 29, 2023. trimethoprim-polymyxin (POLYTRIM) 10,000 unit- 1 mg/mL ophthalmic solution Use 1 Drop in both eyes every 4 hours for 7 days. benzonatate (TESSALON PERLES) 100 mg capsule Take 1 capsule by mouth three times a day as needed. escitalopram oxalate (LEXAPRO) 10 mg tablet escitalopram 10 mg tablet TAKE 1 TABLET BY MOUTH DAILY OTC PRODUCT Prevajen oral Extra strength ADVAIR DISKUS 250-50 mcg/dose inhaler INHALE one INHALATION TWICE DAILY nystatin (MYCOSTATIN) 100,000 unit/mL suspension Take 5 mL by mouth four times daily. 1tsp swish in mouth for several minutes, then swallow (or expectorate) 4 times daily until gone. gabapentin (NEURONTIN) 800 mg tablet Take 800 [...] 20 mg by mouth daily at bedtime. oxyCODONE-acetaminophen (PERCOCET) 5-325 mg tablet Take 1-2 tablets by mouth every 4 hours as needed. (Patient not taking: Reported on 04/27/2023) ARIPiprazole (ABILIFY) 2 mg tablet Take 2 mg by mouth daily at bedtime. (Patient not taking: Reported on 04/06/2022) carBAMazepine ER (CARBATROL) 200 mg 12 hr capsule Take 400 mg by mouth daily at bedtime. (Patient not taking: Reported on 04/06/2022) No current facility-administered medications for this visit. ALLERGIES: ALLERGIES Allergen Reactions Bee Venom Protein (* Shortness of Breath VITALS: BP 132/85 Pulse 79 Temp 37 C (98.6 F) Resp 18 Wt 76 kg (167 lb 8.8 oz) SpO2 98% BMI 30.65 kg/m PHYSICAL EXAM: GEN: mildly ill appearing HEENT: PERRL, EOMI, lower 1/2 or greater of conjunctiva with hematoma FACE: petechia distributed over the face, ecchymosis at medial left bridge of the nose Throat: moist mucous membranes, mild erythema, no exudate Neck: supple, no thyromegaly, no lymphadenopathy HEART: regular rate and rhythm, no murmurs LUNGS: bilateral wheezes or crackles, no increased WOB ASSESSMENT/PLAN: 1. Acute conjunctivitis of both eyes, unspecified acute conjunctivitis type - ICD9: 372.00, ICD10: H10.33 (primary diagnosis) 2. Subconjunctival hemorrhage, bilateral - ICD9: 372.72, ICD10: H11.33 3. Petechiae - ICD9: 782.7, ICD10: R23.3 4. Ecchymosis - ICD9: 459.89, ICD10: R58 5. Wheezing - ICD9: 786.07, ICD10: R06.2 Rule out acute hypocoagulable state. She will seek further evaluation at the ER. Report sent to [facility] by ER [facility]. Patricio Rich MD documented in this encounter [facility] 04-28-2023 Miscellaneous Notes Patient notified.Nazanin Orellana LPN Negative for COVID flu RSV documented in this encounter [facility] 04-27-2023 History of Present illness Narrative This note was created using [employer]. Subjective Connie Greenberg is a 62 year old female. HPI 62-year-old female presents for sinus congestion, cough, headache, sore throat, ear pain and eye redness/drainage. Patient states she started getting sick about 5 days ago. She has had nasal congestion, sinus pressure, headache, cough. She does have history of asthma and has been using her inhalers. No chest pain or shortness of breath. She has been taking lfwi-hyy-pxuttss sinus medication. Patient states today she got up and both eyes were red and draining some yellow mucus. She states they were crusted. She states they feel itchy and irritated. No pain. No vision changes. She does wear glasses, no contacts. Patient denies any fevers. Patient does state that her grandkids have been sick recently. PAST MEDICAL HISTORY Diagnosis Date Anxiety and [...] (or expectorate) 4 times daily until gone. gabapentin (NEURONTIN) 800 mg tablet Take 800 [...] 20 mg by mouth daily at bedtime. [START ON 04/29/2023] amoxicillin-clavulanate potassium (AUGMENTIN) 875-125 mg per tablet Take 1 tablet by mouth two times a day for 7 days. Patient should start on April 29, 2023. trimethoprim-polymyxin (POLYTRIM) 10,000 unit- 1 mg/mL ophthalmic solution Use 1 Drop in both eyes every 4 hours for 7 days. benzonatate (TESSALON PERLES) 100 mg capsule Take 1 capsule by mouth three times a day as needed. oxyCODONE-acetaminophen (PERCOCET) 5-325 mg tablet Take 1-2 tablets by mouth every 4 hours as needed. (Patient not taking: Reported on 04/27/2023) ARIPiprazole (ABILIFY) 2 mg tablet Take 2 mg by mouth daily at bedtime. (Patient not taking: Reported on 04/06/2022) carBAMazepine ER (CARBATROL) 200 mg 12 hr capsule Take 400 mg by mouth daily at bedtime. (Patient not taking: Reported on 04/06/2022) FAMILY HISTORY Adopted: Yes Social History Tobacco Use Smoking status: Never Smokeless tobacco: Never Substance Use Topics Alcohol use: Yes Comment: 3 times weekly Drug use: Never Review of Systems Constitutional: Negative for chills and fever. HENT: Positive for congestion, ear pain, sinus pressure and sore throat. Eyes: Positive for discharge, redness and itching. Negative for photophobia, pain and visual disturbance. Respiratory: Positive for cough. Negative for shortness of breath. Cardiovascular: Negative for chest pain. Gastrointestinal: Negative for abdominal pain, diarrhea and vomiting. Objective BP 122/64 Pulse 108 Temp 37 C (98.6 F) (Tympanic) Resp 18 Wt 75 kg (165 lb 5.5 oz) SpO2 98% BMI 30.24 kg/m Physical Exam Vitals and nursing note reviewed. Constitutional: General: She is not in acute distress. Appearance: Normal appearance. She is not toxic-appearing. HENT: Right Ear: Tympanic membrane and ear canal normal. Left Ear: Tympanic membrane and ear canal normal. Nose: Congestion present. Right Sinus: Maxillary sinus tenderness present. Left Sinus: Maxillary sinus tenderness present. Mouth/Throat: Mouth: Mucous membranes are moist. Pharynx: No oropharyngeal exudate or posterior oropharyngeal erythema. Eyes: General: Vision grossly intact. Right eye: Discharge present. Left eye: Discharge present. Extraocular Movements: Extraocular movements intact. Conjunctiva/sclera: Right eye: Right conjunctiva is injected. Left eye: Left conjunctiva is injected. Cardiovascular: Rate and Rhythm: Normal rate and regular rhythm. Pulmonary: Effort: Pulmonary effort is normal. Breath sounds: Normal breath sounds. No wheezing, rhonchi or rales. Neurological: Mental Status: She is alert. Assessment and Plan ASSESSMENT/PLAN: 1. URI, acute - ICD9: 465.9, ICD10: J06.9 (primary diagnosis) - Discussed viral etiology and rationale for treatment. - Symptomatic treatment with prn analgesia - Supportive care with fluids and rest -Symptoms x 5 days. Patient does have sinus pressure, sinus pain. Delayed safety net antibiotic given. If patient does not improve in the next 2 days, may start Augmentin. -Rx for Tessalon Perles. - COVID & INFLUENZA A/B & RSV NAAT, ROUTINE -Out of window for Tamiflu and antiviral, but patient would like tested for exposures to grandchildren. 2. Acute conjunctivitis of both eyes, unspecified acute conjunctivitis type - ICD9: 372.00, ICD10: H10.33 -Discussed viral versus bacterial. Will send in Polytrim. - see medication orders-Polytrim - course and contagiousness issues discussed, including hand washing. - Instructed to call if high fever, development of periorbital redness or swelling, eye pain, visual changes, concerns or if symptoms persist. Diagnosis and treatment plan were discussed and questions were answered to the patient's satisfaction. Pt acknowledged understanding of concepts and follow up plan. Specific signs and symptoms that would indicate the need for higher level of care were discussed in detail warranting prompt ER evaluation. ZHANNA Holly documented in this encounter [facility] 03-28-2023 Miscellaneous Notes Called pt. Verified pt by name and . Gave pt anesthesiologist note. Pt agreeable to plan. Pt will [...] overdue for appointment. Routing refill request to [facility] for partial refill. Will advise patient when calling her back to schedule follow up visit. Monik Boo RN March 26, 2023 2:48 PM Patient called requesting refill on Oxybutynin. documented in this encounter [facility] 01-16-2023 Note ORIGINAL EXAMINATION: CT OF THE [...] by: David Herrera MD Preliminary Report By: Ayza Taimur Electronically signed By David Herrera MD Dictated Date: 01/16/2023 4:01:30 PM Prelim Date: 01/16/2023 4:14:18 PM Sign Date: 01/16/2023 4:14:18 PM Ordering Provider: ARYA [facility] 01-16-2023 Miscellaneous Notes Patient notified of results and provider's instructions. Patient verbalizes understanding. Tere Rios RN Left message for patient to call back and ask for a triage nurse for results. Blaire Hudson Patient was positive for COVID. Patient should quarantine for 5 days then mask for another 5 days. Awts-yng-jidqdhz medications as appropriate for treatment. Patient was negative for flu and RSV. documented in this encounter [facility] 11-30-2022 Hospital Discharge instructions Patient Education 11/30/2022 14:03:24 1- [facility] General Discharge Guidelines (10/26/2022) (CUSTOM) [facility] SAME DAY SURGERY DISCHARGE INSTRUCTIONS PLEASE FOLLOW [...] Care 07/19/2022 16:00:11 With:jamal Address: When: Unknown [facility] 11-30-2022 Summary of episode note Discharge Instructions Thank you for allowing [place] [facility] to assist you with your healthcare needs. The following is important discharge information regarding your hospital visit. Your Care Team LEE GARCIA MD Your Diagnosis Post-op pain What [...] Post-op pain Duration: 7 Days Pickup at [facility] Unchanged albuterol (Ventolin MDI HFA) 2 [...] a day Unchanged herbal/ nutritional product (Evening Austin Oil 1000 mg oral capsule) See instructions [...] a day Unchanged omega-3 polyunsaturated fatty acids (Merced-3 1050 mg oral capsule) by mouth Three [...] Three (3) times a day Pharmacy Information [facility]: [address] [place], [place] [phone] Please take this list to your next doctor s visit. Bring all medications you take, including over the counter medications, herbals and other supplements with you to your doctor s visit. Patients and families are reminded to discard old lists and to update any records with all medication providers or retail pharmacies. Education Materials [place] SAME DAY SURGERY DISCHARGE INSTRUCTIONS PLEASE FOLLOW [...] to receive it can visit one of [facility] vaccine clinics. There are many vaccine clinic locations within the [facility]. For locations and available times, please visit [email or web address].msi o.[email or web address] It is important to note that some [facility] mobile vaccine clinics are held outdoors and may be canceled in rainy or stormy conditions. To learn more about pediatric vaccinations (ages 5-11), we invite you to visit the [facility] webpage. [email or web address] [email or web address] [email or web address] To learn more about the COVID-19 vaccine, we invite you to visit the CDC website for a list of frequently asked questions.https://www.cdc.gov/eldon navirus/2019-ncov/vaccines/faq.htm l [facility] Patient Portal Access Instructions: Stay connected with your healthcare team and access your personal medical information anytime with the [email or web address] Patient Portal. Please follow the directions below to create your [email or web address] account: 1.Access the email account you provided upon registration to the hospital/physician office.2.Look for an invitation email from [facility].3.Open the email and access the invitation link: Accept Invitation to [email or web address].4.Fill in the required medina to create your account. To access your account, visit [email or web address]. Click the blue button labeled Access Patient [...] you will allow to register on the [email or web address] Patient Portal for access to your information. You can also access the [email or web address] Patient Portal on the [facility] marianne. Simply click on Patient Portal and then log into your account. If you would like to receive a full copy of your medical records, please contact the [facility] Medical Records Department by calling [phone], Saturday through Saturday between 8 a.m. and [...] Call your local pharmacy or go to [email or web address] to find one close to you.3.Make use of household items: Use cat litter or old coffee grounds to dispose medications if other options are not available. Mix your drugs with these household products, seal them in an airtight container and throw it into the garbage. Call [facility]: [phone] to be sure your drugs can be [...] aware that I should contact my doctor. Patient/Ham Stringer Signature: Date/Time: Relationship to Patient: ___ Witness Name/Signature: Date/Time: [facility] 11-30-2022 Anesthesiology Consult note Patient: CONNIE GREENBERG [...] ALEJANDRA DEMPSEY MD on 11/30/2022 01:45 PM [facility] 11-30-2022 Note ORIGINAL EXAMINATION: SPOT FLUOROSCOPIC IMAGES [...] Sign Date: 11/30/2022 12:19:24 PM Ordering Provider: AAKASH MARAVILLA [facility] 11-30-2022 Anesthesiology Progress note Patient: CONNIE GREENBERG [...] 1 cap(s), Oral, BID, 0 Refill(s) Evening Austin Oil 1000 mg oral capsule: See Instructions, [...] 0 Refill(s) OLANZapine: Oral, qDay, 0 Refill(s) Merced-3 1050 mg oral capsule: Oral, TID, 0 [...] Problem list: Medical Anxiety / SNOMED CT 15578289 / Confirmed Bipolar disorder / SNOMED CT 54005315 / Confirmed Chronic back pain / SNOMED CT 916345742 / Confirmed Depression / SNOMED CT 70918977 / Confirmed Hyperlipidemia / SNOMED CT 129421506 / Confirmed Hypertension / SNOMED CT 7255921479 / Confirmed Sciatic nerve pain / SNOMED CT 20629561 / Confirmed, Active Problems (7) Anxiety Bipolar disorder Chronic back pain Depression Hyperlipidemia Hypertension Sciatic nerve pain Histories Past Medical History: Active Hypertension (6051435118) Hyperlipidemia (085392615) Anxiety (81358306) Bipolar disorder (68487651) Depression (06623493) Chronic back pain (776420914) Sciatic nerve pain (70770577) Family History: Patient was adopted. Asthma Daughter Son Mental illness Son Procedure history: Endometrial ablation (967629604) in 1997 at 37 Years. section (07584305) in 1990 at 30 Years. Tonsillectomy (233019661) in 1967 at 7 Years. Hysterectomy (261248889). Social History Social & Psychosocial Habits Alcohol [...] None Living situation: Home with assistance Primary Net Trainer: Aashish Safe place to go: Yes Lives In 1st floor bathroom, 1st floor laundry, 2nd floor bedroom, Split level home Current Home Treatments None Nutrition/Health 11/30/2022 Type of diet: Regular Appetite Excellent Eating Difficulties None . Physical Examination Vital Signs(last 24 hrs) Last Charted Resp Rate 16 br/min (NOV 30 06:51) ZTF020 mmHg (NOV 30 06:51) DBP81 mmHg (NOV 30 06:51) Measurements from flowsheet : Measurements 11/30/2022 6:51 EDT Height 157.5 cm Height in inches 62 inch(es) Admission Weight 71.8 kg Weight Lbs 158 lb Weight Method Actual [place] Body Weight 50.12 kg Admission Body Mass [...] Ca 9.1(NOV 30) . Assessment and Plan [place] Society [employer] Anesthesiologists (ASA) physical status classification: [...] RAZ WOOD MD on 11/30/2022 08:04 AM [facility] 10-31-2022 History of Present illness Narrative This note was created using [employer]able Medical [employer]. Ivan Greenberg is a 62 year old female. Acute onset 10 days ago +cough +sore throat +ear pain Cough Review of Systems Respiratory: Positive for cough. Objective BP 136/82 Pulse 79 Temp 36.9 C (98.4 F) (Tympanic) Resp 18 Wt 68 kg (150 lb) SpO2 97% BMI 27.44 kg/m Physical Exam Assessment and Plan documented in this encounter [facility] 04-06-2022 History of Present illness Narrative This note was created using [employer]. Ivan Greenberg is a 61 year old [...] evaluation. ZHANNA Holly documented in this encounter [facility] 11-30-2021 History of Present illness Narrative This note was created using [employer]. Subjective Connie Greenberg is a 61 year old female. HPI Patient presents with cough, sinus pressure and congestion over the past 10 days. She feels like she is getting worse. She feels short of breath. She has been wheezing. She has a history of asthma and is on Pulmicort and albuterol inhaler. She denies being a smoker. Her ribs are sore from coughing. No vomiting. She has had some diarrhea the past couple days. Her grandkids who live with her are sick right now. Review of Systems Constitutional: Positive for fatigue. HENT: Positive for congestion, ear pain, sinus pressure and sinus pain. Respiratory: Positive for cough, shortness of breath and wheezing. Cardiovascular: Negative. Gastrointestinal: Positive for diarrhea. Negative for abdominal pain, nausea and vomiting. Genitourinary: Negative. Musculoskeletal: Positive for myalgias. Neurological: Positive for headaches. All other systems reviewed and are negative. PAST MEDICAL HISTORY Diagnosis Date Anxiety and depression Arthritis Asthma Bipolar disorder (HCC) CVA (cerebral vascular accident) (HCC) Diarrhea, functional GERD (gastroesophageal reflux disease) Hiatal hernia High cholesterol Hypertension Impaired cognition Irritable bowel syndrome with both constipation and diarrhea Sleep apnea TIA (transient ischemic attack) 2016 Current Outpatient Medications Medication Sig Dispense Refill oxyCODONE-acetaminophen (PERCOCET) 5-325 mg tablet Take 1-2 tablets by mouth every 4 hours as needed. 42 tablet 0 gabapentin (NEURONTIN) 800 mg tablet Take 800 [...] 2 mg by mouth daily at bedtime. carBAMazepine ER (CARBATROL) 200 mg 12 hr capsule Take 400 mg by mouth daily at bedtime. hydrOXYzine [...] hours as needed for Wheezing/Shortness of Breath. 1 Inhaler 0 montelukast (SINGULAIR) 10 mg tablet Take 10 mg by mouth daily at bedtime. 3 Omeprazole 40 mg capsule TAKE ONE CAPSULE AT 5PM 1 prazosin (MINIPRESS) 1 mg cap Take 1 mg by mouth daily at bedtime. 3 simvastatin (ZOCOR) 20 mg tablet Take 20 mg by mouth daily at bedtime. 3 doxycycline (VIBRA-TABS) 100 mg tablet Take 1 tablet by mouth twice daily for 7 days. 14 tablet 0 predniSONE (DELTASONE) 20 mg tablet Take 2 tablets by mouth once daily for 5 days. 10 tablet 0 benzonatate (TESSALON PERLES) 100 mg capsule Take 2 capsules by mouth three times daily as needed. 30 capsule 0 No current facility-administered medications for this visit. PAST SURGICAL HISTORY Procedure Laterality Date BX OF BREAST; INCISIONAL Left 1992 benign ESOPHAGEAL MANOMETRY 03/10/2021 30% weak & 30% ineffective swallows; Dr. Gonzales FOOT SURGERY HX Left 11/23/2020 mid-foot arthrodesis, great toe tendon release and bunionectomy; Dr. Maravilla HYSTERECTOMY HX FAMILY HISTORY Adopted: Yes Social History Tobacco Use Smoking status: Never Smokeless tobacco: Never Substance Use Topics Alcohol use: Yes Comment: 3 times weekly Drug use: Never Objective BP 122/78 Pulse 83 Temp 36.5 C (97.7 F) (Tympanic) Resp 18 Wt 70.9 kg (156 lb 6.4 oz) SpO2 97% BMI 28.61 kg/m Physical Exam Vitals reviewed. Constitutional: Appearance: Normal appearance. HENT: Head: Normocephalic and atraumatic. Right Ear: Tympanic membrane, ear canal and external ear normal. Left Ear: Tympanic membrane, ear canal and external ear normal. Nose: Congestion present. Right Sinus: Maxillary sinus tenderness present. Left Sinus: Maxillary sinus tenderness present. Mouth/Throat: Mouth: Mucous membranes are moist. Pharynx: Oropharynx is clear. Cardiovascular: Rate and Rhythm: Normal rate and regular rhythm. Heart sounds: Normal heart sounds. Pulmonary: Effort: Pulmonary effort is normal. Breath sounds: Normal breath sounds. Musculoskeletal: Cervical back: Neck supple. Lymphadenopathy: Cervical: No cervical adenopathy. Skin: General: Skin is warm and dry. Findings: No rash. Neurological: Mental Status: She is alert. Assessment and Plan ASSESSMENT/PLAN: 1. Sinobronchitis - ICD9: 473.9, 490, ICD10: J32.9, J40 - Will begin treatment with Doxycycline, prednisone and tessalon. - Supportive care with plenty of fluids, rest, and analgesia prn. - Follow up in 3-5 days if symptoms persist or worsen. - 2019 CORONAVIRUS Kaylen Goode PA-C documented in this encounter [facility] 11-23-2020 Note HNO ID: [id number] Author: Teresa Catalan APRN.BU[employer]LE W[employer] INSERTER Service: Anesthesiology Author Type: Nurse Court Bailiff Or Sheriff Type: Anesthesia Procedure Notes Filed: 11/23/2020 2:28 PM Note Text: ANESTHESIOLOGY PROCEDURE NOTE Airway General Information Procedure Start Time/Medication Administration: 11/23/2020 2:07 PM Patient location during procedure: OR Patient identity confirmed: arm band Staffing Anesthesiologist: Marshal Mari MD BUCKLE WIRE INSERTER: Teresa Catalan APRN.[employer]LE WIRE INSERTER Performed by: BU[employer]LE WIRE INSERTER Indications and Patient Condition Preoxygenated: yes Patient position: sniffing Manual In-Line Stabilization: No Difficult Mask: No Indications for airway management: anesthesia anesthesia circuit Method: asleep Cricoid Pressure: No Final Airway Details Final airway type: supraglottic airway Number of attempts at approach: 1 Final Supraglottic Airway: i-gel Size 4 Seal Adequate: yes Failed airway: no Airway not difficult SIGNATURE: Teresa Catalan APRN.CRNA PATIENT NAME: Connie Greenberg DATE: November 23, 2020 TIME: 2:27 PM CSN: [id number] [facility] Evaluation + Plan note No data available for this section [facility] Evaluation note Diagnosis Onset Date Encounter for routine gyneco logical examination noneactive Bipolar depression chronic Hyperlipidemia chronic Hypertension chronic Insomnia chronic Encounter for screening for COVID-[address] [facility] Work Phone: Evaluation note* Diagnosis Onset Date Resolution Status Screening for STD (sexually transmitted disease) acute Overweight (BMI 25.0-29.9) c hronic [facility] Work Phone: Evaluation note* Diagnosis Sinobronchitis- Primary Unspecified sinusitis (chronic) [facility] Diagnosis Thrush- Primary Candidiasis of mouth [facility] Upper respiratory tract infection, unspecified type- Primary Acute cough [facility] Diagnosis OAB (overactive bladder) [N32.81]- Primary Hypertonicity of bladder [facility] Diagnosis URI, acute- Primary Acute upper respiratory infections of unspecified site Acute conjunctivitis of both eyes, unspecified acute conjunctivitis type [facility] Diagnosis Acute conjunctivitis of both eyes, unspecified acute conjunctivitis type- Primary Subconjunctival hemorrhage, bilateral Petechiae Spontaneous ecchymoses Ecchymosis Other specified circulatory system disorders Wheezing [facility] Diagnosis Bacterial sinusitis- Primary Unspecified sinusitis (chronic) [facility]* Diagnosis Fever in other diseases- Primary Bacterial sinusitis Unspecified sinusitis (chronic) Influenza A Influenza with other respiratory manifestations [facility] Diagnosis Subacute cough- Primary Cough Sinobronchitis Unspecified sinusitis (chronic) Subacute cough [facility] Subacute cough Cough documented in this encounter [facility] Discharge instructions No data available for this section [facility] Progress note No data available for this section [facility] Summary Purpose Family History No Family History Records Found Relationship Condition Age at Onset Recorded Date/T isaiah Not Specified Past medical history not known due to adoption Unknown Advance Directives No Advanced Directives Records Found Advance Directive Response Recorded Date/ Time Living Will No August 03, 2021 9:04pm Power of Central Scheduler No August 03 9:04pm Chief Complaint and Reason for Visit 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 FU PCR COVID TEST GENERAL Reason for Visit Encounter for routin e gynecological examination Bipolar depression Hyperlipidemia Hypertension Insomnia Encounter for screening for COVID-19 Chief Complaint GENERAL r/s fu Reason for Visit Screening for STD (s exually transmitted disease) Overweight (BMI 25.0-29.9) Health Concerns Infection Onset Date Last Indicated Resolved Time COVID-19 Rule-Out 11/30/2021 11/30/2021 Infection Onset Date Last Indicated Resolved Time COVID-19 Rule-Out 10/31/2022 10/31/2022 Infection Onset Date Last Indicated Resolved Time COVID-19 Rule-Out 01/15/2023 01/15/2023 01/16/2023 5:27 AM EST COVID-19 Confirmed 01/15/2023 01/15/2023 Additional Source Comments INFORMATION SOURCE (unrecogn ized section and content) DATE CREATED AUTHOR 01/15/2019 Constantino Marcelo [facility] DATE CREATED AUTHOR AUTHOR'S ORGANIZ ATION 03/05/2020 [facility] DATE CREATED AUTHOR AUTHOR'S ORGANIZ ATION 03/11/2021 [facility] DATE CREATED AUTHOR AUTHOR'S ORGANIZ ATION 01/30/2023 [facility] ([place]) DATE CREATED AUTHOR AUTHOR'S ORGANIZ ATION 05/21/2024 [facility] DATE CREATED AUTHOR AUTHOR'S ORGANIZ ATION 07/17/2024 [facility] Goals (unrecognized section and content) Goals may be documented in a n alternate sectionGoals may be documented in an alternate section No data available for this section No data available for this section Source Comments (unrecognize d section and content) In the event this informatio n is protected by the Federal Confidentiality of Alcohol and Drug Abuse Patient Records regulations: The Federal rules restrict any use of the information to criminally investigate or prosecute any alcohol or drug abuse patient.[facility] the event this information is protected by the Federal Confidentiality of Alcohol and Drug Abuse Patient Records regulations: The Federal rules restrict any use of the information to criminally investigate or prosecute any alcohol or drug abuse patient.[facility] the event this information is protected by the Federal Confidentiality of Alcohol and Drug Abuse Patient Records regulations: The Federal rules restrict any use of the information to criminally investigate or prosecute any alcohol or drug abuse patient.[facility] the event this information is protected by the Federal Confidentiality of Alcohol and Drug Abuse Patient Records regulations: The Federal rules restrict any use of the information to criminally investigate or prosecute any alcohol or drug abuse patient.[facility] Center[facility] the event this information is protected by the Federal Confidentiality of Alcohol and Drug Abuse Patient Records regulations: The Federal rules restrict any use of the information to criminally investigate or prosecute any alcohol or drug abuse patient.[facility] Center[facility] the event this information is protected by the Federal Confidentiality of Alcohol and Drug Abuse Patient Records regulations: The Federal rules restrict any use of the information to criminally investigate or prosecute any alcohol or drug abuse patient.[facility] Center[facility] the event this information is protected by the Federal Confidentiality of Alcohol and Drug Abuse Patient Records regulations: The Federal rules restrict any use of the information to criminally investigate or prosecute any alcohol or drug abuse patient.[facility] Center[facility] the event this information is protected by the Federal Confidentiality of Alcohol and Drug Abuse Patient Records regulations: The Federal rules restrict any use of the information to criminally investigate or prosecute any alcohol or drug abuse patient.[facility] Center[facility] the event this information is protected by the Federal Confidentiality of Alcohol and Drug Abuse Patient Records regulations: The Federal rules restrict any use of the information to criminally investigate or prosecute any alcohol or drug abuse patient.[facility] Center[facility] the event this information is protected by the Federal Confidentiality of Alcohol and Drug Abuse Patient Records regulations: The Federal rules restrict any use of the information to criminally investigate or prosecute any alcohol or drug abuse patient.[facility] CenterIn the event this information is protected by the Federal Confidentiality of Alcohol and Drug Abuse Patient Records regulations: The Federal rules restrict any use of the information to criminally investigate or prosecute any alcohol or drug abuse patient.[facility] CenterIn the event this information is protected by the Federal Confidentiality of Alcohol and Drug Abuse Patient Records regulations: The Federal rules restrict any use of the information to criminally investigate or prosecute any alcohol or drug abuse patient.[facility] Reason for Visit (unrecogniz ed section and content) Reason Comments Cough Cough, bilateral ear pain, diarrhea and CASPER x 4 days Specialty Diagnoses / Procedures Referred By Contac t Referred To Contact [facility] Diagnoses ear pain, ear pain, cough losing voice, x4 days Procedures NEW SAME DAY [facility] [address] [place] [address] Referral ID Status Reason Start Date Expiration Date V isits Requested Visits Authorized [id number] Outside PCP 11/30/2021 02/28/2022 1 1 Reason Comments Mouth Sores Pt reported painful mouth sores x1 week, completed ATB. Specialty Diagnoses / Procedures [facility] Diagnoses mouth hurts, possible thrust, x1 week. just finished antibiotic and steroid Procedures NEW SAME DAY [facility] Cl Counts Include [address] [facility] [address] [place] [address] Referral ID Status Reason Start Date Expiration Date V isits Requested Visits Authorized [id number] Outside PCP 04/06/2022 07/05/2022 1 1 Reason Comments Cough Cough, ST and laryng itis x 1.5 weeks Reason Comments Results Reason Comments Sinus Problem Sinus, CASPER, facial pa in, ST, cough, ears hurt and messy eyes x 4 days Reason Comments Conjunctivitis Bilateral x x3 days Reason Comments Cough Chest congestion, CASPER x 7 days Reason Comments Cough Sinus pressure, CASPER, CM ear pain, sore throat x 2 weeks- exposed to flu Reason Comments Sinus Problem drainage, cough, fev er x 2 weeks Care Teams (unrecognized sec tion and content) Control Operator Flow Coat Relationship Specialty Start Date End Date Lee Garcia MD [address] [place] [address] PCP - General Internal Medicine 11/23/20 Control Operator Flow Coat Relationship Specialty Start Date End Date Lee Garcia MD [address] [place] [address] PCP - General Internal Medicine 11/23/20 Control Operator Flow Coat Relationship Specialty Start Date End Date Lee Garcia MD [address] [place] [address] PCP - General Internal Medicine 11/23/20 Control Operator Flow Coat Relationship Specialty Start Date End Date Lee Garcia MD [address] [place] [address] PCP - General Internal Medicine 11/23/20 Control Operator Flow Coat Relationship Specialty Start Date End Date Lee Garcia MD [address] [place] [address] PCP - General Internal Medicine 11/23/20 Control Operator Flow Coat Relationship Specialty Start Date End Date Lee Garcia MD [address] [place] [address] PCP - General Internal Medicine 11/23/20 Control Operator Flow Coat Relationship Specialty Start Date End Date Lee Garcia MD [address] [place] [address] PCP - General Internal Medicine 11/23/20 FOR [...] BE BASED ON THE PRIMARY CLINICAL RECORDS. [facility] Center[facility], [employer] [facility]. provides no warranty or guarantee of the accuracy or completeness of information in this document.
== END | disposition home or self-care (01) ==
LOC: OPBI 15:34
PROVIDERS: PCP Internal Medicine; Referring Provider Internal Medicine; Visit Provider Internal Medicine
DX: Z12.31 Encounter for screening mammogram for malignant neoplasm of breast (principal)
CPT/HCPCS: 77063; 77067

== ENCOUNTER → 2024-07-31 | Outpatient (CLI) | payer OTHER, MEDICAID, SELFPAY ==
--- NOTE | 2024-07-31 10:24 | NM_ITS ---
PROCEDURE: GASTRIC EMPTYING STUDY 07/31/2024 REASON FOR EXAM: EARLY SATIETY TECHNIQUE: The patient ingested a standard meal of oatmeal, sulfur colloid and water. There was no vomiting postprandially. Anterior and posterior planar images of the upper abdomen were obtained for 1 minute immediately following the meal at 1h, 2h and 4h if more than 10% of the activity persisted within the stomach. Regions of interest were drawn, and a geometric mean was used to calculate a yvtk-[id number]-ofyit. RADIOPHARMACEUTICAL: Sulfur colloid DOSE 1.1mCi FINDINGS: Percent activity remaining in stomach: 1 hour 38 % (normal 37-90%) NM/Gastric Emptying Study IMPRESSION: Normal gastric emptying examination. Reading Location: [facility]-
== END | disposition home or self-care (01) ==
LOC: NM 10:24
PROVIDERS: PCP Internal Medicine
DX: K59.09 Other constipation (principal); R11.0 Nausea; R68.81 Early satiety
CPT/HCPCS: 78264; A9541

== ENCOUNTER → 2024-10-05 | Outpatient (CLI) | payer OTHER, MEDICAID, SELFPAY ==
[2024-10-05 12:26] LABS: Hematocrit 36.0 % (37-47); Hemoglobin 12.0 g/dL (12.0-15.0); Immature Granulocytes Count 0.010 X10^3/uL (0.0-0.0); Mean Corp Hgb Conc 33.3 g/dL (32-36); Mean Corpuscular Volume 93.8 fL (81-99); Mean Platelet Vol. 9.7 fl (6.2-12.0); NRBC Flagged by Analyzer 0 % (0-5); Platelet Count 295 K/mm3 (150-450); RBC Distribution Width CV 12.2 % (11.6-14.6); RBC Distribution Width SD 42.3 fl (35.1-43.9); Red Blood Count 3.84 M/mm3 (4.2-5.4); White Blood Count 5.7 K/mm3 (4.4-11.0)
[2024-10-05 13:00] LABS: Anion Gap 11 (5-15); BUN 8 mg/dL (4-19); BUN/Creat Ratio 10.9 RATIO (10-20); Calcium,Total 9.2 mg/dL (7.6-11.0); Carbon Dioxide 23.8 mmol/L (21.0-32.0); Chloride 103 mmol/L (98-108); Glucose 119 mg/dL (70-99); Potassium 4.1 mmol/L (3.3-5.1)
== END | disposition home or self-care (01) ==
LOC: LAB 11:23
PROVIDERS: PCP Internal Medicine; Referring Provider Internal Medicine; Visit Provider Internal Medicine
DX: I10 Essential (primary) hypertension (principal)
CPT/HCPCS: 36415; 80048; 85025

== ENCOUNTER 2024-10-07 12:34 | Day surgery (SDC) | payer OTHER, MEDICAID, SELFPAY ==
[2024-10-07] VITALS (8 sets, daily range): BP systolic 106–131; BP diastolic 59–81; PULSE 60–74; RESP 16–18; TEMP 36.2–36.3; O2SAT 99–100; BMI 26.6
[2024-10-07] MEDS: Lactated Ringers 1,000 ML 15 ML IV (12:59)
--- NOTE | 2024-10-07 13:15 | EGD_PTH ---
PATIENT: CONNIE GREENBERG LOC: EN U#:[id number] AGE/SX: 64/F ROOM: RE10/07/[address]: Dr. Oscar Ocampo DO : 1960 BED: DIS: 10/07/2024 SPEC #: [id number] RECD: 10/07/24 15:15 STATUS: LALI AIXA #: [id number] MARLI: 10/07/24 13:[address]: Oscar Ocampo DEPT: SURGICAL PATHOLOGY RECD BY: Silviano Kelley ENTERED: 10/08/24 10:26 SP TYPE: EGD BIOPSY NACHO DR: Dr. Margarita Garcia MD Tissues: A - Esophagus, NOS B - Gastric mucous membrane C - Rectum, NOS Procedures: Special Stain Group I Surgery Specimen Level IV GMS Stain (control) HEADER OPERATION: Colonoscopy, EGD with biopsy PRE-OP DIAGNOSIS: Esophageal dysmotility, chronic constipation, GERD TISSUE SUBMITTED: A- Distal esophagus biopsy, B- Gastric body biopsy, C- Rectum biopsy MICROSCOPIC DIAGNOSIS A. Distal esophagus, biopsy: - Squamous mucosa with focal mild acute inflammation. - Columnar mucosa negative for goblet cell metaplasia. - PASD negative for fungal organisms. B. Gastric body, biopsy: - Oxyntic mucosa with features of reactive gastropathy. - Negative for Helicobacter-like organisms (H&E). C. Rectum, biopsy: - No specific pathologic change. MICROSCOPIC DESCRIPTION Slides are reviewed. GROSS DESCRIPTION A. Received in fixative is one container labeled with the patient's name and designated Distal esophagus biopsy. The specimen consists of one irregular fragment of light mariscal soft tissue that measures 0.4 cm. The specimen is totally submitted in one cassette. B. Received in fixative is one container labeled with the patient's name and designated Gastric body biopsy. The specimen consists of two irregular fragments of light mariscal soft tissue that measure 0.3 and 0.7 cm. The specimen is totally submitted in one cassette. C. Received in fixative is one container labeled with the patient's name and designated Rectum biopsy. The specimen consists of two irregular fragments of light mariscal soft tissue, each measuring 0.4 cm. The specimen is totally submitted in one cassette. HI 10/08/2024 CPT:36211e5,71388
--- NOTE | 2024-10-07 13:31 | PCM.PRE.AN2 ---
ASA Classification* ASA Classification ASA Classification: 3 Assessment & Plan Anesthesia* Anesthesia Assessment Anesthesia Assessment: Discussed sedation and/or anesthesia options, risks, benefits, and alternatives with patient/parents/legal guardian/POA. Questions invited. The patient/parents/legal guardian/POA seems to understand and agrees to proceed with anesthesia plan. Reviewed the physical assessment, medical history, allergy history and patient home medications list prior to surgery/procedure/anesthetic and documented any changes. Performed airway and anesthesia risk assessments. Anesthesia Type Anesthesia Type: MAC History Source History Obtained from:: Patient and Chart Anesthesia Focused Assessment* Temperature: 97.4 F Pulse Rate: 68 Blood Pressure: 131/81 Respiratory Rate: 18 Pulse Ox: 100 Oxygen Delivery Method: Room Air Airway Assessment Mouth opens: >3 cm Mallampati Score: III Teeth Condition: Lower and Upper Neck Range of motion (ROM): Full ROM Labs Anesthesia Preop lab: CBC WBC 5.7 K/mm3 (4.4-11.0) 10/05/24 11:10/05/24 RBC 3.84 M/mm3 (4.2-5.4) L 10/05/24 11:10/05/24 Hgb 12.0 g/dL (12.0-15.0) 10/05/24 11:10/05/24 Hct 36.0 % (37-47) L 10/05/24 11:33 10/05/24 Plt Count 295 K/mm3 (150-450) 10/05/24 11:33 10/05/24 CHEMISTRY Potassium 4.1 mmol/L (3.3-5.1) 10/05/24 11:33 10/05/24 Sodium 137 mmol/L (133-145) 10/05/24 11:33 10/05/24 Magnesium 2.2 mg/dL (1.5-2.2) 07/10/24 14:32 07/10/24 BUN 8 mg/dL (4-19) 10/05/24 11:10/05/24 Creatinine 0.78 mg/dL (0.70-1.20) 10/05/24 11:10/05/24 Glucose 119 mg/dL (70-99) H 10/05/24 11:33 10/05/24 POC Glucose 143 mg/dL (70-110) H 12/26/16 19:01 12/26/16 TSH 2.05 uIU/mL (0.358-3.74) 08/02/23 10:51 08/02/23 COAG PT 13.2 SECONDS (11.7-14.9) 02/07/23 00:08 02/07/23 Pre-Assessment Diagnosis/Proposed Procedure Planned Operative Procedure(s): colonoscopy egd Anesthesia History 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 When Was Last Pacemaker Check QUESTION #4 FULL TEXT: You/Your Family Experience fever (hyperthermia) with Anesthesia Last Oral Intake Last Oral intake: Last Oral Intake NPO since 09:00 10/07/24 12:52 Meds taken in AM with sips of No 10/07/24 12:52 water? Meds patient instructed to take am of surgery PONV PONV - graduation coach: PONV - graduation coach Female Yes 10/05/24 15:48 HX of Motion Sickness No 10/05/24 15:48 HX of N/V After Surgery No 10/05/24 15:48 Non-Smoker Yes 10/05/24 15:48 Duration of Surgery greater No 10/05/24 15:48 than 60 minutes Number of Risk Factors 2 10/05/24 15:48 PONV Score Moderate Risk 10/05/24 15:48 Height & Weight Height & Weight: Anesthesia: Height & Weight Height 5 ft 2 in 10/07/24 12:52 Weight: 66 kg 10/07/24 12:52 Body Mass Index (BMI) 26.6 10/07/24 12:52 Respiratory Assessment Respiratory Assessment - graduation coach: Respiratory Tract Infection Hx - graduation coach Hx Respiratory Tract Infection No 10/05/24 15:48 STOP Sleep Apnea STOP Sleep Apnea - graduation coach: STOP Sleep Apnea - graduation coach Hx Hypertension Yes 10/05/24 15:48 Hx Sleep Apnea Yes 10/05/24 15:48 CPAP Yes 10/05/24 15:48 BIPAP No 10/05/24 15:48 Do you snore loudly (louder than talking or can be heard Do you often feel tired/ fatigued/ sleepy during daytime? Has anyone observed you stop breathing during sleep? STOP Results Positive 10/05/24 15:48 QUESTION #5 FULL TEXT : Do you snore loudly (louder than talking or can be heard through closed doors)? 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 Specify any problems Hx of Preganancy in last 3 No 10/05/24 15:48 Months Nurse Filling Out Transfusion [id number] 10/05/24 15:48 & Questions: Date: 10/05/24 10/05/24 15:48 Time: 15:50 10/05/24 15:48 Patient unable to answer at this time (ie. confused, unrespo /Reproduction History /Reproductive History - graduation coach: /Reproductive Hx- graduation coach Hx Now No 10/05/24 15:48 Gestational Age (in weeks): EDC: Hx Hx Para Hx Section SAB No 10/05/24 15:48 Active Medications Active Medications: Current Medications Generic Name Dose Route Start Last Admin Trade Name Freq PRN Reason Stop Dose Admin Lactated Ringer's 1,000 mls @ 15 mls/hr 10/07/24 12:45 10/07/24 12:59 IV 15 mls/hr .Q48H ARTURO Administration PFSH Medical History (Updated 10/05/24 @ 15:56 by Penny Combs) Wears glasses Wears dentures Post-menopausal Anxiety Alcohol use Non-smoker CPAP (continuous positive airway pressure) dependence Nail abnormality Alcohol use disorder De Quervain's tenosynovitis, left Chronic constipation Cough Migraine Murmur Osteopenia Fatigue Health care maintenance Right otitis media with effusion Alcohol use disorder, severe, in early remission Chronic headache Low libido Dermatitis, contact Sinusitis Bipolar II disorder Overweight (BMI 25.0-29.9) Screening for STD (sexually transmitted disease) Insomnia Flu vaccine need Bee sting reaction Difficulty swallowing solids Hyponatremia Dizziness Vaginal atrophy OAB (overactive bladder) Memory impairment Sciatica Hernia History of stroke IBS (irritable bowel syndrome) Hx of migraine headaches GI problem Emphysema lung COPD (chronic obstructive pulmonary disease) Back pain Anemia Arthritis Seasonal allergies Anxiety right scapular mass Lumbar radiculopathy Asthma Bipolar depression CHIQUI (obstructive sleep apnea) GERD (gastroesophageal reflux disease) Orthostatic hypotension Pericardial effusion (noninflammatory) Hypertension Hyperlipidemia Chronic pain Fibromyalgia CVA (cerebral vascular accident) Home Medications ?Medication ?Instructions ?Recorded ?Last Taken ?Type albuterol sulfate 90 mcg/actuation 2 puff inhalation Q4H PRN PRN Sob 12/26/16 Unknown History aerosol inhaler &/Or Wheezing cholecalciferol (vitamin D3) 125 5,000 unit PO DAILY vitamin 12/26/16 10/06/24 History mcg (5,000 unit) disintegrating tablet cyanocobalamin (vitamin B-12) 500 500 mcg PO DAILY vitamin 12/26/16 10/06/24 History mcg tablet aspirin 81 mg chewable tablet 81 mg PO DAILY@0800 blood thinner 12/27/16 09/30/24 Rx qdjaqwmj-mgbg-vdiry acid 240 1 tab PO DAILY vitamin 03/07/20 10/06/24 History mcg-vit K 120 [id number] 293 tablet (Alive Women's 50 Plus (fruit-veg blend)) pyridoxine (vitamin B6) 100 mg 100 mg PO DAILY vitamin 04/01/20 10/06/24 History tablet magnesium 200 mg tablet 400 mg PO QHS vitamin 09/13/22 10/06/24 History famotidine 20 mg tablet 20 mg PO DAILY 03/19/23 Unknown History d-mannose 500 mg capsule (AZO 500 mg PO QHS 08/02/23 10/06/24 History D-Mannose) lisinopril 20 mg tablet 20 mg PO DAILY bp #90 tabs 11/04/23 10/07/24 Rx riboflavin (vitamin B2) 100 mg 100 mg PO QDAY 11/04/23 10/06/24 History tablet arm brace (Wrist Brace) #1 ea 04/10/24 Unknown Rx cyclobenzaprine 10 mg tablet 5 mg (1/2 x 10 mg) PO HS PRN 04/10/24 Unknown Rx muscle spasm #30 tabs ferrous sulfate 325 mg (65 mg 325 mg PO .1x/wk 04/10/24 10/06/24 History iron) tablet (Feosol) omeprazole 40 mg capsule,delayed 40 mg PO BID stomach #180 caps 06/02/24 10/06/24 Rx release buspirone 15 mg tablet 15 mg PO TID 30 days #90 tabs 07/14/24 10/07/24 Rx escitalopram oxalate 10 mg tablet 10 mg PO DAILY depression #30 tabs 08/05/24 10/07/24 Rx lamotrigine 200 mg tablet 200 mg PO QHS seizure 30 days #30 08/05/24 10/06/24 Rx tabs naltrexone 50 mg tablet 50 mg PO DAILY #30 tabs 08/05/24 10/06/24 Rx prazosin 2 mg capsule 2 mg PO QHS nightmares #30 caps 08/05/24 10/06/24 Rx azelastine 205.5 mcg (0.15 %) 2 spray intranasal BID #30 mL 08/06/24 10/06/24 Rx nasal spray (Astepro Allergy) cetirizine 10 mg capsule (Zyrtec) 10 mg PO DAILY 08/06/24 Unknown History estradiol 0.01% (0.1 mg/gram) 1 g vaginal 2XW hormone #42.5 grams 08/06/24 10/06/24 Rx vaginal cream (Estrace) meloxicam 15 mg tablet 15 mg PO QDAY PRN pain #30 tabs 08/06/24 Unknown Rx amitriptyline 25 mg tablet 25 mg PO QHS #30 tabs 08/07/24 10/06/24 Rx simvastatin 20 mg tablet 20 mg PO QHS hld #90 tabs 08/07/24 10/06/24 Rx montelukast 10 mg tablet 10 mg PO DAILY asthma #90 tabs 08/27/24 10/06/24 Rx albuterol 90 mcg-budesonide 80 2 inh inhalation ONCE #10.7 grams 09/22/24 Unknown Rx mcg/actuation HFA aerosol inhaler (Airsupra) fluticasone propionate 50 1 spray intranasal QDAY #16 grams 09/23/24 10/06/24 Rx mcg/actuation nasal spray,suspension (Allergy Relief (fluticasone)) atogepant 60 mg tablet (Qulipta) 60 mg PO DAILY 10/05/24 10/06/24 History rimegepant 75 mg disintegrating 75 mg PO .qd PRN migraine 10/05/24 10/06/24 History tablet (Nurtec ODT) Allergy/AdvReac Type Severity Reaction Status Date / Time bee venom protein (honey bee) Allergy Mild SWELLING/ Verified 10/07/24 12:46 SOB Family History Unknown Past medical history not known due to adoption Surgical History H/O laparoscopy Hx of breast biopsy History of total hysterectomy Social History household members: spouse Smoking Status: Never smoker alcohol intake: current alcohol intake frequency: 3 or more drinks per day Alcohol type: beer and hard liquor substance use type: does not use caffeine: Yes what type of physical activity do you participate in: walking frequency: 1-2 times per week seatbelt use: always do you feel safe at home: Yes additional social history: -Aashish Review of Systems (Anesthesia) ROS Narrative System reviewed and no additional complaints, except as documented.
--- NOTE | 2024-10-07 14:06 | PCM.HP.STD ---
[facility] - General General Date of Admission: 10/07/24 Date of Service: 10/07/24 Chief Complaint: GERD, abdominal pain and screening colonoscopy HPI Narrative CONNIE GREENBERG, is a 64 F who presents regarding concerns of chronic constipation, heartburn, nausea. She reports daily nausea, occasional heartburn while on PPI twice daily and famotidine daily. She reports worsening constipation the last few months. She's tried drinking 4oz prune juice and experiences urgent diarrhea within hours of ingestion. She reports having tried Metamucil but can't stand the gritty texture and won't be doing that again. She reports her last colonoscopy and EGD was 10[address] Coronado and that no abnormalities were seen with either procedure. She currently drinks beers and whiskey, but received a call from Dr. Garcia's office saying I had very low sodium and that I needed to stop drinking now, so I stopped yesterday. But my daughter drinks as much as I do and lives with me, so it's not likely that I can get rid of all of the alcohol in my house. We are dealing with a lot of stress at the moment. I have 7 grandchildren in my house, 1 is autistic and 1 is 7yrs that's not expected to live past 10yrs old with her medical conditions. She reports being on naltrexone daily and that it helps some. She reports decreased appetite at times due to nausea and early satiety when she does feel like eating. She reports worsening constipation the last few months. She's tried drinking 4oz prune juice and experiences urgent diarrhea within hours of ingestion. GET 1hr - 38% remaining amitriptyline 10mg PO QHS for difficulty swallowing continue omeprazole 40mg PO twice daily, take 30minutes before eating breakfast and dinner continue famotidine, take QHS increase dietary fiber add fiber supplement capsule/gummies if powder's not tolerated continue water intake of 6 glasses daily try apple juice instead of prune juice schedule bidirectional endoscopies(needs to call from home while looking at calender)-09.10.24 office FU 4wks 08.07.24 OV She reports seeing her PCP yesterday, placed on amoxicillin and prednisone for double ear and sinus infection. She states that she added 4 stool softeners to her bowel routine and had a 4 pound poop. She is taking omeprazole 40mg twice daily and famotidine 40mg every night. She denies heartburn and reflux. She takes amitriptyline 10mg every night and only has difficulty swallowing large pills. Psychiatry stopped her doxepin so that GI can adjust the amitriptyline if needed. She complains of increased belching, but has also increased her consumption of pop since she has drastically reduced her alcohol intake. She reports only drinking 3 times this month, a huge change from daily. She is taking a probiotic and fiber supplement, drinking apple juice daily to help her bowels. She reports diffuse abdominal pain and nausea daily that starts in the morning and eventually lessens until resolved in early afternoon. [facility] Medical History Wears glasses Wears dentures Post-menopausal Anxiety Alcohol use Non-smoker CPAP (continuous positive airway pressure) dependence Nail abnormality Alcohol use disorder De Quervain's tenosynovitis, left Chronic constipation Cough Migraine Murmur Osteopenia Fatigue Health care maintenance Right otitis media with effusion Alcohol use disorder, severe, in early remission Chronic headache Low libido Dermatitis, contact Sinusitis Bipolar II disorder Overweight (BMI 25.0-29.9) Screening for STD (sexually transmitted disease) Insomnia Flu vaccine need Bee sting reaction Difficulty swallowing solids Hyponatremia Dizziness Vaginal atrophy OAB (overactive bladder) Memory impairment Sciatica Hernia History of stroke IBS (irritable bowel syndrome) Hx of migraine headaches GI problem Emphysema lung COPD (chronic obstructive pulmonary disease) Back pain Anemia Arthritis Seasonal allergies Anxiety right scapular mass Lumbar radiculopathy Asthma Bipolar depression CHIQUI (obstructive sleep apnea) GERD (gastroesophageal reflux disease) Orthostatic hypotension Pericardial effusion (noninflammatory) Hypertension Hyperlipidemia Chronic pain Fibromyalgia CVA (cerebral vascular accident) Home Medications ?Medication ?Instructions ?Recorded ?Last Taken ?Type albuterol sulfate 90 mcg/actuation 2 puff inhalation Q4H PRN PRN Sob 12/26/16 Unknown History aerosol inhaler &/Or Wheezing cholecalciferol (vitamin D3) 125 5,000 unit PO DAILY vitamin 12/26/16 10/06/24 History mcg (5,000 unit) disintegrating tablet cyanocobalamin (vitamin B-12) 500 500 mcg PO DAILY vitamin 12/26/16 10/06/24 History mcg tablet aspirin 81 mg chewable tablet 81 mg PO DAILY@0800 blood thinner 12/27/16 09/30/24 Rx zfxkzzrp-iynj-lodmy acid 240 1 tab PO DAILY vitamin 03/07/20 10/06/24 History mcg-vit K 120 rdp-gyomrr-qwlj 293 tablet (Alive Women's 50 Plus (fruit-veg blend)) pyridoxine (vitamin B6) 100 mg 100 mg PO DAILY vitamin 04/01/20 10/06/24 History tablet magnesium 200 mg tablet 400 mg PO QHS vitamin 09/13/22 10/06/24 History famotidine 20 mg tablet 20 mg PO DAILY 03/19/23 Unknown History d-mannose 500 mg capsule (AZO 500 mg PO QHS 08/02/23 10/06/24 History D-Mannose) lisinopril 20 mg tablet 20 mg PO DAILY bp #90 tabs 11/04/23 10/07/24 Rx riboflavin (vitamin B2) 100 mg 100 mg PO QDAY 11/04/23 10/06/24 History tablet arm brace (Wrist Brace) #1 ea 04/10/24 Unknown Rx cyclobenzaprine 10 mg tablet 5 mg (1/2 x 10 mg) PO HS PRN 04/10/24 Unknown Rx muscle spasm #30 tabs ferrous sulfate 325 mg (65 mg 325 mg PO .1x/wk 04/10/24 10/06/24 History iron) tablet (Feosol) omeprazole 40 mg capsule,delayed 40 mg PO BID stomach #180 caps 06/02/24 10/06/24 Rx release buspirone 15 mg tablet 15 mg PO TID 30 days #90 tabs 07/14/24 10/07/24 Rx escitalopram oxalate 10 mg tablet 10 mg PO DAILY depression #30 tabs 08/05/24 10/07/24 Rx lamotrigine 200 mg tablet 200 mg PO QHS seizure 30 days #30 08/05/24 10/06/24 Rx tabs naltrexone 50 mg tablet 50 mg PO DAILY #30 tabs 08/05/24 10/06/24 Rx prazosin 2 mg capsule 2 mg PO QHS nightmares #30 caps 08/05/24 10/06/24 Rx azelastine 205.5 mcg (0.15 %) 2 spray intranasal BID #30 mL 08/06/24 10/06/24 Rx nasal spray (Astepro Allergy) cetirizine 10 mg capsule (Zyrtec) 10 mg PO DAILY 08/06/24 Unknown History estradiol 0.01% (0.1 mg/gram) 1 g vaginal 2XW hormone #42.5 grams 08/06/24 10/06/24 Rx vaginal cream (Estrace) meloxicam 15 mg tablet 15 mg PO QDAY PRN pain #30 tabs 08/06/24 Unknown Rx amitriptyline 25 mg tablet 25 mg PO QHS #30 tabs 08/07/24 10/06/24 Rx simvastatin 20 mg tablet 20 mg PO QHS hld #90 tabs 08/07/24 10/06/24 Rx montelukast 10 mg tablet 10 mg PO DAILY asthma #90 tabs 08/27/24 10/06/24 Rx albuterol 90 mcg-budesonide 80 2 inh inhalation ONCE #10.7 grams 09/22/24 Unknown Rx mcg/actuation HFA aerosol inhaler (Airsupra) fluticasone propionate 50 1 spray intranasal QDAY #16 grams 09/23/24 10/06/24 Rx mcg/actuation nasal spray,suspension (Allergy Relief (fluticasone)) atogepant 60 mg tablet (Qulipta) 60 mg PO DAILY 10/05/24 10/06/24 History rimegepant 75 mg disintegrating 75 mg PO .qd PRN migraine 10/05/24 10/06/24 History tablet (Nurtec ODT) Allergy/AdvReac Type Severity Reaction Status Date / Time bee venom protein (honey bee) Allergy Mild SWELLING/ Verified 10/07/24 12:46 SOB Family History Unknown Past medical history not known due to adoption Surgical History H/O laparoscopy Hx of breast biopsy History of total hysterectomy Social History household members: spouse Smoking Status: Never smoker alcohol intake: current alcohol intake frequency: 3 or more drinks per day Alcohol type: beer and hard liquor substance use type: does not use caffeine: Yes what type of physical activity do you participate in: walking frequency: 1-2 times per week seatbelt use: always do you feel safe at home: Yes additional social history: -Aashish ANAHY Constitutional Constitutional: Denies fatigue, fever(s), poor appetite, weight gain or weight loss Gastrointestinal Gastrointestinal: Denies belching, bloating, change in bowel habits, change in stool character, chewing difficulty, coffee ground emesis, constipation, cramping, diarrhea, dyspepsia, dysphagia, early satiety, excessive flatus, fecal incontinence, heartburn, hematemesis, hematochezia, hemorrhoids, loose stools, melena, nausea, odynophagia, rectal bleeding, tenesmus, vomiting or weight changes Vital Signs Vital Signs Vital Signs: 10/07/24 12:52 10/07/24 12:52 10/07/24 13:31 Temperature 97.4 F L 97.4 F L Temperature Source Temporal Pulse Rate 68 68 Respiratory Rate 18 18 Respiratory Pattern Normal Blood Pressure 131/81 H 131/81 H Blood Pressure Mean 97 Blood Pressure Source Monitor Blood Pressure Position Semi-Fowlers Blood Pressure Location Left Arm Pulse Ox 100 100 Oxygen Delivery Method Room Air Room Air Weight Weight: 145 lb 8.081 oz Body Mass Index (BMI) 26.6 Physical Exam Const alert, oriented x3, no apparent distress and healthy appearing General Appearance: cooperative GI normal to inspection, nondistended, normoactive bowel sounds, soft to palpation, non-tender and non-distended Percussion: normal to percussion Rectal Exam: deferred Assessment & Plan Assessment/Plan (1) Esophageal dysmotility: (2) Heartburn: (3) Early satiety: PLAN: Assessment and Plan Assessment and Plan (1) Esophageal dysmotility: Status: Chronic (2) Chronic constipation: Status: Chronic (3) GERD (gastroesophageal reflux disease): Status: Chronic Qualifiers: Esophagitis presence: esophagitis presence not specified Qualified Code(s): K21.9 - Gastro-esophageal reflux disease without esophagitis Medications: New amitriptyline 25 mg PO QHS 30 tabs 2RF Discontinued amitriptyline Discontinued Reason: Order Changed 10 mg PO QHS 30 tabs 0RF Plan CONNIE GREENBERG, is a 64 F who presents to the office today for FU. Discussed care plan with her. increase amitriptyline to 25mg PO QHS continue omeprazole 40mg PO twice daily continue probiotic, fiber, and apple juice for BMs goal every 2 to 3 days office FU 2wks after scheduled endoscopies on 09.10.24
--- NOTE | 2024-10-07 14:40 | OP.EGD_ITS ---
Patient Name: Joanna Reed Procedure Date: 10/07/2024 2:02 PM Date of : 1960 Age: 64 Procedure: Upper GI endoscopy Indications: Epigastric abdominal pain, Abdominal pain in the left upper quadrant Providers: Oscar Ocampo DO Referring MD: Margarita Garcia MD Medicines: Monitored Anesthesia Care Patient Profile: This is a 64 year old female. Refer to note in patient chart for documentation of history and physical. Patient has symptoms of chronic abdominal cramping, acute left upper quadrant abdominal pain, acute epigastric abdominal pain, chronic dyspepsia, chronic heartburn and chronic nausea. Complications: No immediate complications. Procedure: Pre-Anesthesia Assessment: - Prior to the procedure, a History and Physical was performed, and patient medications and allergies were reviewed. The patient is competent. The risks and benefits of the procedure and the sedation options and risks were discussed with the patient. All questions were answered and informed consent was obtained. Patient identification and proposed procedure were verified by the physician in the pre-procedure area. Mental Status Examination: alert and oriented. Airway Examination: normal oropharyngeal airway and neck mobility. Respiratory Examination: clear to auscultation. CV Examination: normal. Prophylactic Antibiotics: The patient does not require prophylactic antibiotics. Prior Anticoagulants: The patient has taken no anticoagulant or antiplatelet agents except for NSAID medication. ASA Grade Assessment: II - A patient with mild systemic disease. After reviewing the risks and benefits, the patient was deemed in satisfactory condition to undergo the procedure. The anesthesia plan was to use monitored anesthesia care (MAC). Immediately prior to administration of medications, the patient was re-assessed for adequacy to receive sedatives. The heart rate, respiratory rate, oxygen saturations, blood pressure, adequacy of pulmonary ventilation, and response to care were monitored throughout the procedure. The physical status of the patient was re-assessed after the procedure. After obtaining informed consent, the endoscope was passed under direct vision. Throughout the procedure, the patient's blood pressure, pulse, and oxygen saturations were monitored continuously. The Colonoscope was introduced through the mouth, and advanced to the fourth part of the duodenum. Small bowel enteroscopy was deemed necessary. The upper GI endoscopy was accomplished without difficulty. The patient tolerated the procedure well. Scope In: 2:15:12 PM Scope Out: 2:17:38 PM Total Procedure Duration Time 0 hours 2 minutes 26 seconds Findings: The Z-line was irregular and was found 39 cm from the incisors. A large hiatal hernia was present. Patchy mildly erythematous mucosa without bleeding was found in the gastric body. Biopsies were taken with a cold forceps for histology. Verification of patient identification for the specimen was done. Estimated blood loss was minimal. Biopsies were taken with a cold forceps for Helicobacter pylori testing. Verification of patient identification for the specimen was done. Estimated blood loss was minimal. No gross lesions were noted in the entire examined duodenum. Impression: - Z-line irregular, 39 cm from the incisors. - Large hiatal hernia. - Erythematous mucosa in the gastric body. Biopsied. - No gross lesions in the entire examined duodenum. Recommendation: - Discharge patient to home. - Resume previous diet. - Continue present medications. - Await pathology results. Procedure Code(s): --- Professional --- 66013, Small intestinal endoscopy, enteroscopy beyond second portion of duodenum, not including ileum; with biopsy, single or multiple CPT copyright 2021 [employer]. All rights reserved. The codes documented in this report are preliminary and upon learning and development director review may be revised to meet current compliance requirements. Oscar Ocampo DO 10/07/2024 2:39:21 PM This report has been signed electronically. Number of Addenda: 0 Note Initiated On: 10/07/2024 2:02 PM
--- NOTE | 2024-10-07 14:40 | OP.PROVAT_ITS ---
10/07/2024 Margarita Garcia MD [address] [place] [address] [place] [address] Re : Upper GI endoscopy procedure for Joanna Reed Dear Dr. Garcia This procedure was performed on Monday, October 07, 2024. My impressions and recommendations are as follows: Impressions : - Z-line irregular, 39 cm from the incisors. - Large hiatal hernia. - Erythematous mucosa in the gastric body. Biopsied. - No gross lesions in the entire examined duodenum. Recommendations : - Discharge patient to home. - Resume previous diet. - Continue present medications. - Await pathology results. My findings are described in the full procedure note, which is enclosed. If I can be of further assistance, please feel free to contact me at . Sincerely, Oscar Ocampo, 10/07/2024 2:39:21 PM This report has been signed electronically.
--- NOTE | 2024-10-07 14:43 | PCM.POST.ANE ---
Anesthesia: Postop Eval I Current Vital Signs Temperature: 97.1 F Pulse Rate: 60 Blood Pressure: 106/60 Respiratory Rate: 16 Pulse Ox: 99 Oxygen Delivery Method: Room Air Assessment Airway patent: Yes Spontaneous unlabored respirations: Yes Mental status: Awake and Calm nausea: No Vomiting: No Anesthesia Complication: No Fluid Hydration Crystalloid volume administer (ml): 700 Total IV fluid infused: 700 Progress Note Anesthesia document: Postop Eval 1 completed: Yes
--- NOTE | 2024-10-07 14:45 | OP.COLON_ITS ---
Patient Name: Joanna Reed Procedure Date: 10/07/2024 2:17 PM Date of : 1960 Age: 64 Procedure: Colonoscopy Indications: Screening for colorectal malignant neoplasm Providers: Oscar Ocampo DO Referring MD: Margarita Garcia MD Medicines: Monitored Anesthesia Care Patient Profile: This is a 64 year old female. Refer to note in patient chart for documentation of history and physical. Patient has symptoms of chronic abdominal cramping, acute left upper quadrant abdominal pain, acute epigastric abdominal pain, chronic dyspepsia, chronic heartburn and chronic nausea. Last Colonoscopy: 5 years ago. Last Colonoscopy: more than 10 years ago. Complications: No immediate complications. Procedure: Pre-Anesthesia Assessment: - Prior to the procedure, a History and Physical was performed, and patient medications and allergies were reviewed. The patient is competent. The risks and benefits of the procedure and the sedation options and risks were discussed with the patient. All questions were answered and informed consent was obtained. Patient identification and proposed procedure were verified by the physician in the pre-procedure area. Mental Status Examination: alert and oriented. Airway Examination: normal oropharyngeal airway and neck mobility. Respiratory Examination: clear to auscultation. CV Examination: normal. Prophylactic Antibiotics: The patient does not require prophylactic antibiotics. Prior Anticoagulants: The patient has taken no anticoagulant or antiplatelet agents except for NSAID medication. ASA Grade Assessment: II - A patient with mild systemic disease. After reviewing the risks and benefits, the patient was deemed in satisfactory condition to undergo the procedure. The anesthesia plan was to use monitored anesthesia care (MAC). Immediately prior to administration of medications, the patient was re-assessed for adequacy to receive sedatives. The heart rate, respiratory rate, oxygen saturations, blood pressure, adequacy of pulmonary ventilation, and response to care were monitored throughout the procedure. The physical status of the patient was re-assessed after the procedure. After I obtained informed consent, the scope was passed under direct vision. Throughout the procedure, the patient's blood pressure, pulse, and oxygen saturations were monitored continuously. The Colonoscope was introduced through the anus and advanced to the cecum, identified by appendiceal orifice and ileocecal valve. The colonoscopy was performed without difficulty. The patient tolerated the procedure well. The quality of the bowel preparation was adequate. Scope In: 2:18:58 PM Scope Withdrawal Time 0 hours 12 minutes 29 seconds Scope Out: 2:35:33 PM Total Procedure Duration Time 0 hours 16 minutes 35 seconds Findings: The perianal and digital rectal examinations were normal. Mild inflammation characterized by congestion (edema) and erythema was found in the rectum and in the recto-sigmoid colon. Biopsies were taken with a cold forceps for histology. Verification of patient identification for the specimen was done. Estimated blood loss was minimal. Multiple small-mouthed diverticula were found in the recto-sigmoid colon, sigmoid colon and descending colon. Stool was found in the rectum, in the sigmoid colon, in the transverse colon, at the hepatic flexure, in the ascending colon and in the cecum [Visualization]. Impression: - Mild inflammation was found in the rectum and in the recto-sigmoid colon secondary to colitis. Biopsied. - Diverticulosis in the recto-sigmoid colon, in the sigmoid colon and in the descending colon. Recommendation: - Discharge patient to home. - Resume previous diet. - Continue present medications. - Await pathology results. - Repeat colonoscopy in 5 years for surveillance. Procedure Code(s): --- Professional --- 86749, Colonoscopy, flexible; with biopsy, single or multiple CPT copyright 2021 [employer]. All rights reserved. The codes documented in this report are preliminary and upon gill box operator review may be revised to meet current compliance requirements. Oscar Ocampo DO 10/07/2024 2:45:14 PM This report has been signed electronically. Number of Addenda: 0 Note Initiated On: 10/07/2024 2:17 PM
--- NOTE | 2024-10-07 14:45 | OP.PROVAT_ITS ---
10/07/2024 Margarita Garcia MD [address] [place] [address] [place] [address] Re : Colonoscopy procedure for Joanna Reed Dear Dr. Garcia This procedure was performed on Monday, October 07, 2024. My impressions and recommendations are as follows: Impressions : - Mild inflammation was found in the rectum and in the recto-sigmoid colon secondary to colitis. Biopsied. - Diverticulosis in the recto-sigmoid colon, in the sigmoid colon and in the descending colon. Recommendations : - Discharge patient to home. - Resume previous diet. - Continue present medications. - Await pathology results. - Repeat colonoscopy in 5 years for surveillance. My findings are described in the full procedure note, which is enclosed. If I can be of further assistance, please feel free to contact me at . Sincerely, Oscar Ocampo, 10/07/2024 2:45:14 PM This report has been signed electronically.
--- NOTE | 2024-10-07 15:56 | PCM.POSTANE2 ---
Anesthesia Postop Eval I Sum Postop Eval Completion status Anesthesia document: Postop Eval 1 completed: Yes Anesthesia Postop Eval I Summary Anesthesia Postop Eval I Summary: Anesthesia Postop Eval I: Assessment Summary Airway patent Yes 10/07/24 14:43 [email or web address] Spontaneous unlabored Yes 10/07/24 14:43 [email or web address] respirations Mental status Awake,Calm 10/07/24 14:43 [email or web address] nausea No 10/07/24 14:43 [email or web address] Vomiting No 10/07/24 14:43 [email or web address] Anesthesia Postop Eval I: Fluid Summary Crystalloid volume administer 700 10/07/24 14:43 [email or web address] (ml) Colloids volume administered ( ml) Blood Product volume administered (ml) Total IV fluid infused 700 10/07/24 14:43 [email or web address] Anesthesia Postop Eval I: Summary Notes Anesthesia Complication No 10/07/24 14:43 [email or web address] Anesthesia Complication Comment: Post-operative progress note Anesthesia: Postop Eval II Evaluation Mental status: Awake Pain Level: 0 nausea: No Vomiting: No Complications Anesthesia Complication: No
--- OUTSIDE RECORDS SUMMARY | 2024-10-07 21:50 | XMS RPT_ITS | CCD ---
Author Organization [facility] CliniSyhi Care Team Providers Care Piecer Up Name Role Phone DEVIN RAMIREZ Admitting Unavailable DEVIN RAMIREZ Attending Unavailable DEVIN RAMIREZ Primary Care Unavailable DEVIN RAMIREZ Consulting Unavailable PROVIDER, UNKNOWN Consulting Unavailable Dr. Lee Garcia Primary Care Provider [phone] Dr. Lee Garcia Referring Provider [phone] Dr. Rosamaria Graves Attending Provider [phone] Dr. Lee Garcia Attending Provider [phone] ZHANNA [...] EFEWONGBE B Primary Care Unavailable Oleghe, Efewongbe Referring Unavailable Oleghe, Efewongbe Primary Care Unavailable Tamia Guerrero Attending Unavailable Oleghe, Efewongbe Primary Care Unavailable Oleghe, Efewongbe Attending Unavailable Oleghe, Efewongbe Referring Unavailable Naye Araujo Attending Unavailable Oleghe, Efewongbe Primary Care Unavailable Oleghe, Efewongbe Referring Unavailable Oleghe, Efewongbe Primary Care Unavailable Oleghe, Efewongbe Attending Unavailable Oleghe, Efewongbe Referring Unavailable Oleghe, Efewongbe Primary Care Unavailable Oleghe, Efewongbe Attending Unavailable Naye Araujo Attending Unavailable Oleghe, Efewongbe Primary Care Unavailable Oleghe, Efewongbe Referring Unavailable Oleghe, Efewongbe Referring Unavailable Oleghe, Efewongbe Primary Care Unavailable Oleghe, Efewongbe Attending Unavailable Oleghe, Efewongbe Referring Unavailable Oleghe, Efewongbe Primary Care Unavailable Franko Charles Attending Unavailable Oleghe, Efewongbe Referring Unavailable Oleghe, Efewongbe Primary Care Unavailable Oleghe, Efewongbe Attending Unavailable Oleghe, Efewongbe Referring Unavailable Oleghe, Efewongbe Attending Unavailable Oleghe, Efewongbe Primary Care Unavailable Adore Gonzalez Attending Unavailable Oleghe, Efewongbe Primary Care Unavailable Oleghe, Efewongbe Referring Unavailable Oleghe, Efewongbe Primary Care Unavailable Oleghe, Efewongbe Attending Unavailable Oleghe, Efewongbe Referring Unavailable Damaris, Oscar Attending Unavailable Oleghe, Efewongbe Primary Care Unavailable Oleghe, Efewongbe Referring Unavailable Oleghe, Efewongbe Attending Unavailable Oleghe, Efewongbe Primary Care Unavailable Oleghe, Efewongbe Attending Unavailable Oleghe, Efewongbe Referring Unavailable Oleghe, Efewongbe Primary Care Unavailable Oleghe, Efewongbe Referring Unavailable Oleghe, Efewongbe Primary Care Unavailable Tamia Guerrero Attending Unavailable Oleghe, Efewongbe Attending Unavailable Oleghe, Efewongbe Referring Unavailable Oleghe, Efewongbe Primary Care Unavailable Oleghe, Efewongbe Referring Unavailable Oleghe, Efewongbe Attending Unavailable Oleghe, Efewongbe Primary Care Unavailable Oleghe, Efewongbe Primary Care Unavailable Guerrero, Tamia Referring Unavailable Guerrero, Tamia Attending Unavailable Oleghe, Efewongbe Referring Unavailable Oleghe, Efewongbe Attending Unavailable Oleghe, Efewongbe Primary Care Unavailable Oleghe, Efewongbe Referring Unavailable Oleghe, Efewongbe Primary Care Unavailable Sheela Horowitz Attending Unavailable Oleghe, Efewongbe Primary Care Unavailable Osvaldo Gonzalez Attending Unavailable Oleghe, Efewongbe Primary Care Unavailable Osvaldo Gonzalez Attending Unavailable Oleghe, Efewongbe Referring Unavailable Oleghe, Efewongbe Primary Care Unavailable Oleghe, Efewongbe Attending Unavailable Oleghe, Efewongbe Primary Care Unavailable Osvaldo Gonzalez Attending Unavailable Oleghe, Efewongbe Primary Care Unavailable [employer] Attending Unavailable Oleghe, Efewongbe Referring Unavailable Oleghe, Efewongbe Attending Unavailable Oleghe, Efewongbe Primary Care Unavailable Oleghe, Efewongbe Primary Care Unavailable Osvaldo Gonzalez Attending Unavailable Allergies Allergy Classification Reported Allergen(s) Allergy Type Date of Onset Reaction(s) Facility (15 sources) bee venom protein (honey bee); Translations: [BEE VENOM PROTEIN (HONEY BEE)] Allergy to substance 0 Shortness of Breath [facility] (1 source) bee venom protein (honey bee) Drug allergy (disorder) 5 [facility] Repository Medications Current Medications Medication Drug Class(es) Dates Sig (Normalized) Sig (Original) 8 hr acetaminophen 650 mg extended release oral tablet (12 sources) take 2 tablets by mouth every eight hours as needed acetaminophen 650 mg CR tablet Take 1,300 mg by mouth every 8 hours as needed for pain. Active Comment on above: Take 1,300 mg by carly th every 8 hours as needed for pain. [...] by mouth every 4 hours as needed. [id number] actuat albuterol 0.09 mg/actuat metered dose [...] mouth daily at bedtime. Carboxymethylcellulose -Citric (Plenity (Welcome Kit)) 0.75 gram capsule (2 sources) Start: 11-02-2021 Carboxymethylcellulose-C itric (Plenity (Welcome Kit)) 0.75 gram capsule Active 3 CAP PO TWICE A DAY 540 90 November 02, 2021 5:05pm administer before lunch and evening meal/dinner Start: 10-30-2021 End: 11-02-2021 Carboxymethylcellulose-Citri c (Plenity (SpeechTranscome Kit)) 0.75 gram capsule Discontinued 3 CAP [...] Citalopram (2 sources) Serotonin Reuptake Inhibitor Start: 7 take 1 dose by mouth once daily [...] (4 sources) Central alpha-2 Adrenergic Agonist Start: 1 take 0.1 mg by mouth every six [...] on above: Take 1 tablet by carly twice daily for 7 days. Take 1 [...] daily at bedtime. 21 day ethinyl estradiol 0.181851 mg/hr / etonogestrel 0.005 mg/hr vaginal system (2 sources) Progestin, Estrogen Start: 3 ethinyl estradiol-etonogestr el 0.015 mg-0.120 mg/24 hours vaginal ring Dose = 1 EA, Vaginal, q4wk, 0 Refill(s) Start Date: 11/30/22 Status: Ordered evening primrose oil 1000 mg oral capsule (2 sources) Start: 7 take 1 capsule by mouth once daily Evening Helmetta Oil 1000 mg oral capsule See Instructions, [...] 2020 3:55pm take 1 capsule by mo [facility] every eight hours as needed hydrOXYzine [...] 2020 4:01pm take 1 tablet by carly th twice daily lamoTRIgine (LAMICTAL) 150 mg tablet Take 150 mg by mouth twice daily. Active Comment on above: Take 150 mg by mouth twice daily. lisinopril 10 mg oral tablet (20 sources) Angiotensin Converting Enzyme Inhibitor Start: 12-26-2016 End: 10-11-2021 take 10 mg by mouth once daily Lisinopril Active 10 MG PO DAILY October 11, 2021 2:00pm Start: 06-15-2016 lisinopril [...] tablet (20 sources) Leukotriene Receptor Antagonist Start: End: 2 take 1 tablet by mouth [...] above: Take by mouth once d aily. Yf-Mfw-Tblhv-Vit [id number] (Alive Women's 50 Plus (Blend)) 240-120-300 mcg tablet (2 sources) Start: 1 take 1 tablet by mouth once daily Sz-Twd-Yxgbt-Vit Y-[id number]-Rxpc421 (Alive Women's 50 Plus (Blend)) 240-120-300 mcg [...] Refill(s) Start Date: 11/30/22 Status: Ordered nystatin [id number] unt/ml oral suspension (11 sources) Polyene Antifungal [...] 2020 12:18pm take 1 tablet by carly once daily at bedtime OLANZapine (ZYPREXA) 10 mg tablet Take 10 mg by mouth daily at bedtime. Active Comment on above: Take 10 mg by mouth daily at bedtime. [place]-3 1050 mg oral capsule (2 sources) Start: 06-15-2016 [place]-3 1050 mg oral capsule Oral, TID, 0 [...] oral capsule (1 source) Neuraminidase Inhibitor Start: 5 End: 5 take 1 capsule by mouth twice daily [...] mg by mouth once daily. polymyxin b [id number] unt/ml / trimethoprim 1 mg/ml ophthalmic solution [...] Comment on above: Take 2 tablets by [facility] once daily for 5 days. pregabalin 75 [...] 9:46am Start: 01-29-2020 take 2 tablets by [facility] once daily at bedtime traZODone (DESYREL) 50 [...] 1 TABLET PO EVERY 4 HOURS NEEDED 11 12December 28, 2019 December 30, 2019 1:02am ascorbic [...] Take by mouth as nee ded. Joselyn Zned-Xqctsnde-Gifhuq jessika Ac (2 sources) Start: 12-26-2016 End: 03-07-2020 take 1000 mg by mouth once daily before mealtime Joselyn Gnep-Vneicddx-Ubqwwp jessika Ac Discontinued 1000 MG PO DAILY [...] 0 Refill(s) Start Date: 06/15/16 Status: Ordered [place] Pill (2 sources) Start: 12-26-2016 End: 04-01-2020 take 1 tablet by mouth three times daily [place] Pill Discontinued 1 TABLET PO THREE [...] remission; Translations: [Alcohol dependence, in remission] Onset: 08-06-2024 Chronic Anxiety disorders (6 sources) Anxiety; Translations: [Anxiety disorder, unspecified] 06-15-2016 Chronic Coagulation and hemorrhagic disorders (1 source) Petechiae; Translations: [Spontaneous ecchymoses] 04-29-2023 Episodic Conditions associated with dizziness or vertigo (2 sources) Dizziness; Translations: [Dizziness and giddiness] Episodic Disorders of lipid metabolism (6 sources) Hyperlipidemia, unspecified; Translations: [Hyperlipidemia] Onset: 01-07-2019 Chronic Esophageal disorders (1 source) Gastro-esophageal reflux disease without esophagitis; Translations: [Gastro-esophageal reflux disease without esophagitis] Onset: 10-05-2024 Chronic Essential hypertension (8 sources) Essential (primary) hypertension; Translations: [Hypertensive disorder] Onset: 01-07-2019 Chronic Fever of unknown origin (1 source) Fever; Translations: [Fever presenting with conditions classified elsewhere] 03-15-2024 Episodic Fluid and electrolyte disorders (2 sources) Hyponatremia; Translations: [Hypo-osmolality and hyponatremia] Episodic Headache; including migraine (1 source) Migraine, unspecified, not intractable, without status migrainosus; Translations: [Migraine, unspecified, not intractable, without status migrainosus] Onset: 10-05-2024 Chronic Headache; including migraine (2 sources) Headache; Translations: [...] disorder; Translations: [Depression with suicidal ideation] Onset: 10-05-2024 Chronic Mycoses (1 source) Candidiasis of mouth; [...] source) Other constipation; Translations: [Other constipation] Onset: 08-06-2024 Episodic Other lower respiratory disease (1 source) [...] mammogram for malignant neoplasm of breast] Onset: 07-21-2024 Episodic Other skin disorders (1 source) Nail disorder, unspecified; Translations: [Nail disorder, unspecified] Onset: 10-05-2024 Episodic Other upper respiratory infections (4 sources) [...] amnesia] Episodic Residual codes; unclassified (2 sources) Insomnia, unspecified; Translations: [Insomnia, unspecified] Onset: 08-06-2024 Episodic Residual codes; unclassified (1 source) Early satiety; Translations: [Early satiety] Onset: 07-14-2024 Episodic Unclassified (2 sources) Subacute cough; Translations: [Subacute cough] Onset: 05-19-2024 Unclassified (1 source) Alcohol use, unspecified, uncomplicated; Translations: [Alcohol use, unspecified, uncomplicated] Onset: 10-05-2024 Unclassified (1 source) Cough, unspecified; Translations: [Cough, [...] and structure, unspecified site] Onset: 11-26-2023 Episodic Spondylosis; intervertebral disc disorders; other back problems (8 sources) Chronic back pain ; Translations: [Dorsalgia, unspecified] Onset: 04-03-2024 06-15-2016 Episodic Results Test Name Value Interpretation Reference Range Facility Basic Metabolic Profile (BMP )on 10-05-2024 BUN/CRE 10.9 RATIO Normal 10-20 [facility] Comment on above: Performed By: #### L 100.0100, L500.2500 ####[facility] [address] [place], [address] Calcium [Mass/Vol] 9.2 mg/dL Normal 7.6-11.0 [facility] Comment on above: Performed By: #### L 100.0100, L500.2500 ####[facility] [address] [place], [address] Chloride [Moles/Vol] 103 mmol/L Normal 98-108 [facility] Comment on above: Performed By: #### L 100.0100, L500.2500 ####[facility] [address] [place], [address] CO2 [Moles/Vol] 23.8 mmol/L Normal 21.0-32.0 [facility] Comment on above: Performed By: #### L 100.0100, L500.2500 ####[facility] [address] [place], [address] Creatinine [Mass/Vol] 0.78 mg/dL Normal 0.70-1.20 [facility] Comment on above: Performed By: #### L 100.0100, L500.2500 ####[facility] [address] [place], [address] GAP 11 Normal 5-15 [facility] Comment on above: Performed By: #### L 100.0100, L500.2500 ####[facility] [address] [place], [address] GFR/1.73 sq M.predicted among non-blacks MDRD (S/P/Bld) [Vol rate/Area] 86 mL/min/{1.73_m2} Normal >60 [facility] Comment on above: Result Comment: mL/m in/1.73m2 CKD-EPI Creatinine Equation (2020) Performed By: #### L 100.0100, L500.2500 ####[facility] [address] [place], [address] Glucose [Mass/Vol] 119 mg/dL High 70-99 [facility] Comment on above: Performed By: #### L 100.0100, L500.2500 ####[facility] [address] [place], [address] Potassium [Moles/Vol] 4.1 mmol/L Normal 3.3-5.1 [facility] Comment on above: Performed By: #### L 100.0100, L500.2500 ####[facility] [address] [place], [address] Sodium [Moles/Vol] 137 mmol/L Normal 133-145 [facility] Comment on above: Performed By: #### L 100.0100, L500.2500 ####[facility] [address] [place], [address] Urea nitrogen [Mass/Vol] 8 mg/dL Normal 4-19 [facility] Comment on above: Performed By: #### L 100.0100, L500.2500 ####[facility] [address] [place], [address] CBC W/Diff, Automatedon 2 Absolute Lymph 1.88 X10 3/uL Normal 0.83-4.51 [facility] Comment on above: Performed By: #### L 100.0100, L500.2500 ####[facility] [address] [place], [address] Absolute Neut 3.0 X10 3/uL Normal 2.0-7.7 [facility] Comment on above: Performed By: #### L 100.0100, L500.2500 ####[facility] [address] [place], [address] Basophils/100 WBC (Bld) 0.3 % Normal 0-1 [facility] Comment on above: Performed By: #### L 100.0100, L500.2500 ####[facility] [address] [place], [address] Eosinophils/100 WBC (Bld) 6.6 % High 0-5 [facility] Comment on above: Performed By: #### L 100.0100, L500.2500 ####[facility] [address] [place], [address] Erythrocyte distribution width (RBC) [Ratio] 12.2 % Normal 11.6-14.6 [facility] Comment on above: Performed By: #### L 100.0100, L500.2500 ####[facility] [address] [place], [address] Hematocrit (Bld) [Volume fraction] 36.0 % Low 37-47 [facility] Comment on above: Performed By: #### L 100.0100, L500.2500 ####[facility] [address] [place], [address] Hemoglobin (Bld) [Mass/Vol] 12.0 g/dL Normal 12.0-15.0 [facility] Comment on above: Performed By: #### L 100.0100, L500.2500 ####[facility] [address] [place], [address] IG% 0.200 Normal 0.0-0.9 [facility] Comment on above: Result Comment: IG% - Immature Granulocytes (promyelocytes, myelocytes and metamyelocytes) > 1% indicates that a LEFT SHIFT is Present. Performed By: #### L 100.0100, L500.2500 ####[facility] [address] [place], [address] Lymphocytes/100 WBC (Bld) 32.9 % Normal 19-41 [facility] Comment on above: Performed By: #### L 100.0100, L500.2500 ####[facility] [address] [place], [address] MCH (RBC) [Entitic mass] 31.3 pg Normal 27.0-32.0 [facility] Comment on above: Performed By: #### L 100.0100, L500.2500 ####[facility] [address] [place], [address] MCHC (RBC) [Mass/Vol] 33.3 g/dL Normal 32-36 [facility] Comment on above: Performed By: #### L 100.0100, L500.2500 ####[facility] [address] [place], [address] MCV (RBC) [Entitic vol] 93.8 fL Normal 81-99 [facility] Comment on above: Performed By: #### L 100.0100, L500.2500 ####[facility] [address] [place], [address] Monocytes/100 WBC (Bld) 8.0 % Normal 0-10 [facility] Comment on above: Performed By: #### L 100.0100, L500.2500 ####[facility] [address] [place], [address] Neutrophils/100 WBC (Bld) 52.0 % Normal 47-70 [facility] Comment on above: Performed By: #### L 100.0100, L500.2500 ####[facility] [address] [place], [address] Nucleated RBC (Bld) [#/Vol] 0 10*3/uL Normal 0-5 [facility] Comment on above: Performed By: #### L 100.0100, L500.2500 ####[facility] [address] [place], [address] Platelet mean volume (Bld) [Entitic vol] 9.7 fL Normal 6.2-12.0 [facility] Comment on above: Performed By: #### L 100.0100, L500.2500 ####[facility] [address] [place], [address] Platelets (Bld) [#/Vol] 295 10*3/uL Normal 150-450 [facility] Comment on above: Performed By: #### L 100.0100, L500.2500 ####[facility] [address] [place], [address] RBC (Bld) [#/Vol] 3.84 10*6/uL Low 4.2-5.4 [facility] Comment on above: Performed By: #### L 100.0100, L500.2500 ####[facility] [address] [place], [address] RDW SD 42.3 fl Normal 35.1-43.9 [facility] Comment on above: Performed By: #### L 100.0100, L500.2500 ####[facility] [address] [place], [address] WBC (Bld) [#/Vol] 5.7 10*3/uL Normal 4.4-11.0 [facility] Comment on above: Performed By: #### L 100.0100, L500.2500 ####[facility] [address] [place], [address] Internal Medicine Office Vis vlad 10-05-2024 Internal Medicine Office Visit [facility] [address] [place] [address] [place] [address] OFFICE VISIT Date of Service: 10/05/24 MR#: [id number] Acct: [id number] Name: CONNIE GREENBERG Rep #: [id number] : 1960 Provider: Dr. Lee gallo MD Age/Sex: 64/F Location[place] [facility] Status: Signed Intake Vital Signs 08/06/24 08:41 10/05/24 10:50 Height 5 ft 2 in 5 ft 2 in Weight: 148 lb BMI 27.1 BP 110/82 H Blood Pressure Location Lt brachial Position Sitting Respiration 16 Pulse 77 Pulse Source Monitor Temp 97.6 F L Temp Source Temporal Pulse Oximetry (%) 98 Oxygen Delivery Method room air Intake Visit Reasons: 3 M FU Chief Complaint: 3 M FU Is patient in pain?: Yes (STOMACH) Pain scale (1-10): 7 Allergies bee venom protein (honey bee) Allergy (Mild, Verified 10/05/24 10:47) SWELLING/ SOB Medications ???Medication ???Instructions ???Recorded ???Confirmed ???Type albuterol sulfate 90 mcg/actuation 2 puff inhalation Q4H PRN PRN So b 12/26/16 10/05/24 History aerosol inhaler /Or Wheezing cholecalciferol (vitamin D3) 125 5,000 unit PO DAILY vitamin 10/05/24 History mcg (5,000 unit) disintegrating tablet cyanocobalamin (vitamin B-12) 500 500 mcg PO DAILY vitamin 12/26/16 10/05/24 History mcg tablet aspirin 81 mg chewable tablet 81 mg PO DAILY@0800 blood thinner 12/27/16 10/05/24 Rx mnglmjbq-pihf-mmifd acid 240 1 tab PO DAILY vitamin 03/07/20 History mcg-vit K 120 gpm-dahykt-zvaw 293 tablet (Alive Women's 50 Plus (fruit-veg blend)) pyridoxine (vitamin B6) 100 mg 100 mg PO DAILY vitamin 04/01/20 0 10/05/24 History tablet magnesium 200 mg tablet 400 mg PO QHS vitamin 09/13/22 History famotidine 20 mg tablet mg PO DAILY 03/19/23 10/05/24 Hist ory d-mannose 500 mg capsule (AZO mg PO 08/02/23 10/05/24 History D-Mannose) lisinopril 20 mg tablet 20 mg PO DAILY bp #90 tabs 4 10/05/24 Rx riboflavin (vitamin B2) 100 mg 100 mg PO QDAY 11/04/23 10/05/24 H istory tablet arm brace (Wrist Brace) #1 ea 04/10/24 10/05/24 Rx cyclobenzaprine 10 mg tablet 5 mg (1/2 x 10 mg) PO HS PRN 04/1010/05/24 Rx muscle spasm #30 tabs ferrous sulfate 325 mg (65 mg 325 mg PO .1x/wk 04/10/24 10/05/24 History iron) tablet (Feosol) omeprazole 40 mg capsule,delayed 40 mg PO BID stomach #180 caps 10/05/24 Rx release buspirone 15 mg tablet 15 mg PO TID 30 days #90 tabs 05/0510/05/24 Rx escitalopram oxalate 10 mg tablet 10 mg PO DAILY depression #30 tab s 08/05/24 10/05/24 Rx lamotrigine 200 mg tablet 200 mg PO QHS seizure 30 days #30 08/05/24 10/05/24 Rx tabs naltrexone 50 mg tablet 50 mg PO DAILY #30 tabs 08/05/24 0 10/05/24 Rx prazosin 2 mg capsule 2 mg PO QHS nightmares #30 caps 10/05/24 Rx azelastine 205.5 mcg (0.15 %) 2 spray intranasal BID #30 mL 07/1310/05/24 Rx nasal spray (Astepro Allergy) cetirizine 10 mg capsule (Zyrtec) 10 mg PO DAILY 08/06/24 10/05/24 History estradiol 0.01% (0.1 mg/gram) 1 g vaginal 2XW hormone #42.5 gram s 08/06/24 10/05/24 Rx vaginal cream (Estrace) meloxicam 15 mg tablet 15 mg PO QDAY PRN pain #30 tabs 10/05/24 Rx amitriptyline 25 mg tablet 25 mg PO QHS #30 tabs 08/07/24 Rx simvastatin 20 mg tablet 20 mg PO QHS hld #90 tabs 08/07/24 10/05/24 Rx montelukast 10 mg tablet 10 mg PO DAILY asthma #90 tabs 10/05/24 Rx albuterol 90 mcg-budesonide 80 2 inh inhalation ONCE #10.7 grams 09/22/24 10/05/24 Rx mcg/actuation HFA aerosol inhaler (Airsupra) fluticasone propionate 50 1 spray intranasal QDAY #16 grams 09/23/24 10/05/24 Rx mcg/actuation nasal spray,suspension (Allergy Relief (fluticasone)) Have you fallen in the past year?: No [facility] Medical History (Updated 10/05/24 @ 13:[address] Lee Garcia MD) Nail abnormality Alcohol use disorder De Quervain's tenosynovitis, left [...] pain Anemia Arthritis Seasonal allergies Anxiety right scap (more content not included)... Normal [facility] Gastroenterology Visit Repor ton 08-07-2024 Gastroenterology Visit Report [facility] [address] [place] [address] OFFICE VISIT Date of Service: 08/07/24 MR#: [id number] Acct: [id number] Name: CONNIE GREENBERG Rep #: [id number] : 1960 Provider: URIEL mcdonald Age/Sex: 64/F Location: [facility] [place] Status: Signed Intake Vital Signs 08/06/24 08:41 Height 5 ft 2 in Weight: 151 lb BMI 27.6 BP 124/78 H Blood Pressure Location Lt brachial Position Sitting Respiration 20 H Pulse 90 Pulse Source Monitor Temp 98.7 F Temp Source Temporal Pulse Oximetry (%) 98 Oxygen Delivery Method room air Intake Visit Reasons: CRAMPS WORSE NAUSEA BACK PAIN Chief Complaint: 3 M FU Allergies bee venom protein (honey bee) Allergy (Mild, Verified 08/06/24 08:29) SWELLING/ SOB PFSH Medical History Alcohol use disorder De [...] adoption Social History household members: spouse Smoking Status: Never smoker alcohol intake: current alcohol intake frequency: 3 or more drinks per day Alcohol type: beer and hard liquor substance use type: does not use caffeine: Yes what type of physical activity do you participate in: walking frequency: 1-2 times per week seatbelt use: always do you feel safe at home: Yes additional social history: -Aashish HPI HPI Chief Complaint: 3 M FU Details: CONNIE GREENBERG, is a 64 F who presents to the office today for FU. 07.14.24 OV establishment with I regarding concerns of chronic constipation, heartburn, nausea. She reports daily nausea, occasional heartburn while on PPI twice daily and famotidine daily. She reports worsening constipation the last few months. She's tried drinking 4oz prune juice and experiences urgent diarrhea within hours of ingestion. She reports having tried Metamucil but can't stand the gritty texture and won't be doing that again. She reports her last colonoscopy and EGD was [address] Coronado and that no abnormalities were seen with either procedure. She currently drinks beers and whiskey, but received a call from Dr. Garcia's office saying I had very low sodium and that I needed to stop drinking now, so I stopped yesterday. But my daughter drinks as much as I do and lives with me, so it's not likely that I can get rid of all of the alcohol in my house. We are dealing with a lot of stress at the moment. I have 7 grandchildren in my house, 1 is autistic and 1 is 7yrs that's not expected to live past 10yrs old with her medical conditions. She reports being on naltrexone daily and that it helps some. She reports decreased appetite at times due to nausea and early satiety when she does feel like eating. She reports worsening constipation the last few months. She's tried drinking 4oz prune juice and experiences urgent diarrhea within hours of ingestion. GET 1hr - 38% remaining amitriptyline 10mg PO QHS for difficulty swallowing continue omeprazole 40mg PO twice daily, take 30minutes before eating breakfast and dinner continue famotidine, take QHS increase dietary fiber add fiber supplement capsule/gummies if powder's not tolerated continue water intake of 6 glasses daily try apple juice instead of prune juice schedule bidirectional endoscopies(needs to call from home while looking at calender)-09.10.24 office FU 4wks 08.07.24 OV She reports seeing her PCP yesterda (more content not included)... Normal [facility] Internal Medicine Office Vis vlad 08-06-2024 Internal Medicine Office Visit [facility] [address] [place] [address] [address] [place] [address] OFFICE VISIT Date of Service: 08/06/24 MR#: [id number] Acct: [id number] Name: CONNIE GREENBERG Rep #: [id number] : 1960 Provider: URIEL knott Age/Sex: 64/F [place] [facility] [place] Status: Signed Intake Vital Signs 08/05/24 10:30 08/06/24 08:41 Height 5 ft 2 in 5 ft 2 in Weight: 154 lb 151 lb BMI 28.1 27.6 BP 145/83 H 124/78 H Blood Pressure Location Lt brachial Lt brachial Position Sitting Sitting Respiration 16 20 H Pulse 93 90 Pulse Source Monitor Monitor Temp 98.7 F Temp Source Temporal Pulse Oximetry (%) 98 Oxygen Delivery Method room air Intake Visit Reasons: ACUTE SINUS INFECTION Chief Complaint: 3 M FU Membership Assistant Required: No Is patient in pain?: No Allergies bee venom protein (honey bee) Allergy (Mild, Verified 08/06/24 08:29) SWELLING/ SOB Medications ???Medication ???Instructions ???Recorded ???Confirmed ???Type albuterol sulfate 90 mcg/actuation 2 puff inhalation Q4H PRN PRN So b 12/26/16 08/06/24 History aerosol inhaler /Or Wheezing cholecalciferol (vitamin D3) 125 5,000 unit PO DAILY vitamin 08/06/24 History mcg (5,000 unit) disintegrating tablet cyanocobalamin (vitamin B-12) 500 500 mcg PO DAILY vitamin 12/26/16 08/06/24 History mcg tablet aspirin 81 mg chewable tablet 81 mg PO DAILY@0800 blood thinner 12/27/16 08/06/24 Rx gbizjatk-kibp-iwxnf acid 240 1 tab PO DAILY vitamin 03/07/20 History mcg-vit K 120 dzb-huyrtx-abby 293 tablet (Alive Women's 50 Plus (fruit-veg blend)) pyridoxine (vitamin B6) 100 mg 100 mg PO DAILY vitamin 04/01/20 0 08/06/24 History tablet magnesium 200 mg tablet 400 mg PO QHS vitamin 09/13/22 History famotidine 20 mg tablet mg PO DAILY 03/19/23 08/06/24 Hist ory d-mannose 500 mg capsule (AZO mg PO 08/02/23 08/06/24 History D-Mannose) lisinopril 20 mg tablet 20 mg PO DAILY bp #90 tabs 4 08/06/24 Rx riboflavin (vitamin B2) 100 mg 100 mg PO QDAY 11/04/23 08/06/24 H istory tablet simvastatin 20 mg tablet 20 mg PO QHS hld #90 tabs 11/04/23 08/06/24 Rx montelukast 10 mg tablet 10 mg PO DAILY asthma #90 tabs 11/0508/06/24 Rx arm brace (Wrist Brace) #1 ea 04/10/24 08/06/24 Rx cyclobenzaprine 10 mg tablet 5 mg (1/2 x 10 mg) PO HS PRN 04/1008/06/24 Rx muscle spasm #30 tabs ferrous sulfate 325 mg (65 mg 325 mg PO .1x/wk 04/10/24 08/06/24 History iron) tablet (Feosol) omeprazole 40 mg capsule,delayed 40 mg PO BID stomach #180 caps 08/06/24 Rx release fluticasone propionate 50 1 spray intranasal QDAY #16 grams 06/05/24 08/06/24 Rx mcg/actuation nasal spray,suspension (Allergy Relief (fluticasone)) albuterol 90 mcg-budesonide 80 2 inh inhalation ONCE #10.7 grams 06/25/24 08/06/24 Rx mcg/actuation HFA aerosol inhaler (Airsupra) amitriptyline 10 mg tablet 10 mg PO QHS #30 tabs 07/14/24 Rx buspirone 15 mg tablet 15 mg PO TID 30 days #90 tabs 05/0508/06/24 Rx escitalopram oxalate 10 mg tablet 10 mg PO DAILY depression #30 tab s 08/05/24 08/06/24 Rx lamotrigine 200 mg tablet 200 mg PO QHS seizure 30 days #30 08/05/24 08/06/24 Rx tabs naltrexone 50 mg tablet 50 mg PO DAILY #30 tabs 08/05/24 0 08/06/24 Rx prazosin 2 mg capsule 2 mg PO QHS nightmares #30 caps 08/06/24 Rx amoxicillin 500 mg-potassium 1 tab PO Q12H 10 days #20 tabs 08/06/24 Rx clavulanate 125 mg tablet (Augmentin) azelastine 205.5 mcg (0.15 %) 2 spray intranasal BID #30 mL 07/1308/06/24 Rx nasal spray (Astepro Allergy) cetirizine 10 mg capsule (Zyrtec) 10 mg PO DAILY 08/06/24 08/06/24 History estradiol 0.01% (0.1 mg/gram) 1 g vaginal 2XW hormone #42.5 gram s 08/06/24 08/06/24 Rx vaginal cream (Estrace) meloxicam 15 mg tablet 15 mg PO QDAY PRN pain #30 tabs 08/06/24 Rx prednisone 20 mg tablet 20 mg PO BID 5 days #10 tabs 08/0608/06/24 Rx Have you fallen in the past year?: No Nurse's Note: Pt needs everything refilled.including estradiol, and meloxicam. [facility] Medical History Alcohol use disorder De Quervain's [...] need Bee sting reaction Difficulty swallowing solids Hyp (more content not included)... Normal [facility] MR/BMS.BPon 08-05-2024 MR/BMS.BP [facility], [address] [place] [id number] OFFICE VISIT Date of Service: 08/05/24 MR#: [id number] Acct: [id number] Name: CONNIE GREENBERG Rep #: [id number] : 1960 Provider: Dr. Osvaldo Fung se, DO Age/Sex: 64/F Location: [facility] [place] Status: Signed Intake Vital Signs 06/04/24 13:41 07/10/24 13:58 08/05/24 10:30 Height 5 ft 2 in 5 ft 2 in 5 ft 2 in Weight: 154 lb BMI 28.1 BP 145/83 H Blood Pressure Location Lt brachial Position Sitting Respiration 16 Pulse 93 Pulse Source Monitor BP Intake Visit Reasons: Follow up Accompanied by: Self Allergies bee venom protein (honey bee) Allergy (Mild, Verified 08/05/24 10:33) SWELLING/ SOB Medications ???Medication ???Instructions ???Recorded ???Confirmed ???Type albuterol sulfate 90 mcg/actuation 2 puff inhalation Q4H PRN PRN So b 12/26/16 08/05/24 History aerosol inhaler /Or Wheezing cholecalciferol (vitamin D3) 125 5,000 unit PO DAILY vitamin 08/05/24 History mcg (5,000 unit) disintegrating tablet cyanocobalamin (vitamin B-12) 500 500 mcg PO DAILY vitamin 12/26/16 08/05/24 History mcg tablet aspirin 81 mg chewable tablet 81 mg PO DAILY@0800 blood thinner 12/27/16 08/05/24 Rx djpgfpti-coqq-hnfjw acid 240 1 tab PO DAILY vitamin 03/07/20 History mcg-vit K 120 gtz-dfxabf-xvpm 293 tablet (Alive Women's 50 Plus (fruit-veg blend)) pyridoxine (vitamin B6) 100 mg 100 mg PO DAILY vitamin 04/01/20 0 08/05/24 History tablet magnesium 200 mg tablet 400 mg PO QHS vitamin 09/13/22 History famotidine 20 mg tablet mg PO DAILY 03/19/23 08/05/24 Hist ory cetirizine 10 mg capsule (Zyrtec) 10 mg PO DAILY PRN 08/02/2308/05 History d-mannose 500 mg capsule (AZO mg PO 08/02/23 08/05/24 History D-Mannose) selenium 200 mcg capsule 200 mcg PO DAILY 08/02/23 08/05/24 History lisinopril 20 mg tablet 20 mg PO DAILY bp #90 tabs 11/03/ 4 08/05/24 Rx riboflavin (vitamin B2) 100 mg 100 mg PO QDAY 11/04/23 08/05/24 H istory tablet simvastatin 20 mg tablet 20 mg PO QHS hld #90 tabs 11/04/23 08/05/24 Rx estradiol 0.01% (0.1 mg/gram) 1 g vaginal 2XW hormone #42.5 gram s 12/17/23 08/05/24 Rx vaginal cream (Estrace) montelukast 10 mg tablet 10 mg PO DAILY asthma #90 tabs 11/0508/05/24 Rx arm brace (Wrist Brace) #1 ea 04/10/24 08/05/24 Rx cyclobenzaprine 10 mg tablet 5 mg (1/2 x 10 mg) PO HS PRN 04/1008/05/24 Rx muscle spasm #30 tabs ferrous sulfate 325 mg (65 mg 325 mg PO .1x/wk 04/10/24 08/05/24 History iron) tablet (Feosol) omeprazole 40 mg capsule,delayed 40 mg PO BID stomach #180 caps 08/05/24 Rx release benzonatate 200 mg capsule 200 mg PO TID cough #30 caps 06/0308/05/24 Rx fluticasone propionate 50 1 spray intranasal QDAY #16 grams 06/05/24 08/05/24 Rx mcg/actuation nasal spray,suspension (Allergy Relief (fluticasone)) albuterol 90 mcg-budesonide 80 2 inh inhalation ONCE #10.7 grams 06/25/24 08/05/24 Rx mcg/actuation HFA aerosol inhaler (Airsupra) meloxicam 15 mg tablet 15 mg PO QDAY PRN pain #30 tabs 08/05/24 Rx amitriptyline 10 mg tablet 10 mg PO QHS #30 tabs 07/14/24 Rx buspirone 15 mg tablet 15 mg PO TID 30 days #90 tabs 06/05/0508/05/24 Rx escitalopram oxalate 10 mg tablet 10 mg PO DAILY depression #30 tab s 08/05/24 08/05/24 Rx lamotrigine 200 mg tablet 200 mg PO QHS seizure 30 days #30 08/05/24 08/05/24 Rx tabs naltrexone 50 mg tablet 50 mg PO DAILY #30 tabs 08/05/24 0 08/05/24 Rx prazosin 2 mg capsule 2 mg PO QHS nightmares #30 caps 08/05/24 Rx PFSH Medical History Alcohol use disorder [...] (gastroesophageal reflux disease) Orthostatic hypotension Pericardial effusion (gerda (more content not included)... Normal [facility] Gastric Emptying Studyon Gastric Emptying Study [facility] Imaging Services [address] [place] [address] Gastric Emptying Study MR#: [id number] Acct: [id number] Name: CONNIE GREENBERG Rep #: [id number] : 1960 F 64 From: Bruce herrera MD PCP: Dr. Lee Garcia MD Status: REG CLI Study: Gastric Emptying Study Date of Exam: 07/31/24 Exam# [id number] Ordering Dr: Tamia Guerrero PROCEDURE: GASTRIC EMPTYING STUDY 07/31/2024 REASON FOR EXAM: EARLY SATIETY TECHNIQUE: The patient ingested a standard meal of oatmeal, sulfur colloid and water. There was no vomiting postprandially. Anterior and posterior planar images of the upper abdomen were obtained for 1 minute immediately following the meal at 1h, 2h and 4h if more than 10% of the activity persisted within the stomach. Regions of interest were drawn, and a geometric mean was used to calculate a epdy-zjzqgzcp-hnyjf. RADIOPHARMACEUTICAL: Sulfur colloid DOSE 1.1mCi FINDINGS: Percent activity remaining in stomach: 1 hour 38 % (normal 37-90%) NM/Gastric Emptying Study IMPRESSION: Normal gastric emptying examination. Reading Location: [facility] CC: URIEL Guerrero; Dr. Lee Garcia MD Integrated Specialist: Signed Normal [facility] SCRN MAMM (CAD)W/QUYNH BILATo n 07-17-2024 SCRN MAMM (CAD)W/QUYNH BILAT [facility] Imaging Services [address] [place], [place] [address] SCRN MAMM (CAD)W/QUYNH BILAT MR#: [id number] Acct: [id number] Name: CONNIE GREENBERG Rep #: [id number] : 1960 F 63 From: Bruce herrera MD PCP: Dr. Lee Garcia MD Status: REG CLI Study: SCRN MAMM (CAD)W/QUYNH BILAT Date of Exam: 08/05 Exam# [id number] Ordering Dr: Lee Garcia MD EXAM: SCRN MAMM (CAD)W/QUYNH BILAT DATE: 07/17/2024 CLINICAL HISTORY: F, Age 63 y/o , BREAST CANCER SCREENING No known family history BREAST CANCER RISK ASSESSMENT: Not assessed TECHNIQUE: Bilateral screening digital breast tomosynthesis with 2D and 3D images. Computer aided detection. COMPARISON: Prior exam(s) dated July 04, 2023.. FINDINGS: TISSUE DENSITY: The breast tissue is almost entirely fatty. Bilateral Breast Mammographic Findings: No significant masses, calcifications or other abnormalities are identified. No suspicious masses, areas of developing architectural distortion, or suspicious calcifications. There has been no significant interval change. BI/SCRN MAMM (CAD)W/QUYNH BILAT IMPRESSION: OVERALL FINAL ASSESSMENT: BIRADS 1 NEGATIVE RECOMMENDATION: Routine annual follow-up in 1 Year A letter with findings and recommendations will be mailed to the patient. Reading Location: [facility] CC: Dr. Lee Garcia MD Integrated Specialist: Signed Normal [facility] Gastroenterology Visit Repor ton 07-14-2024 Gastroenterology Visit Report [facility]astroenterology [address] [place] [address] OFFICE VISIT Date of Service: 07/14/24 MR#: [id number] Acct: [id number] Name: CONNIE GREENBERG Rep #: [id number] : 1960 Provider: URIEL mcdonald Age/Sex: 63/F [place] [facility] [place]: Signed Intake Vital Signs 07/10/24 13:58 [...] PO DAILY@0800 blood thinner 12/27/16 07/14/24 Rx gwpkvchi-pepi-wvqih acid 240 1 tab PO DAILY vitamin 03/07/20 History mcg-vit K 120 sty-oyipbq-etkm 293 tablet (Alive Women's 50 Plus (fruit-veg [...] scapular mas (more content not included)... Normal [facility] Comprehensive Metabolic Prof cochica 07-10-2024 Albumin [Mass/Vol] 4.5 g/dL Normal 3.4-4.8 [facility] Comment on above: Performed By: #### L 076.5200, L500.4050 ####[facility] [address] [place], [place], [id number] Albumin/Globulin [Mass ratio] 1.6 {ratio} Normal 0.9-2.4 [facility] Comment on above: Performed By: #### L 131.5200, L500.4050 ####[facility] [address] [place], [address] ALK PHOS 144 U/L High 35-104 [facility] Comment on above: Performed By: #### L 501.5200, L500.4050 ####[facility] [address] [place], [address] ALT [Catalytic activity/Vol] 17 U/L Normal <=34 [facility] Comment on above: Performed By: #### L 501.5200, L500.4050 ####[facility] [address] [place], [address] AST [Catalytic activity/Vol] 18 U/L Normal <=31 [facility] Comment on above: Performed By: #### L 501.0, L500.4050 ####[facility] [address] [place], [address] Bilirubin [Mass/Vol] 0.36 mg/dL Normal 0.00-1.30 [facility] Comment on above: Performed By: #### L 501.0, L500.4050 ####[facility] [address] [place], [address] BUN/CRE 10.6 RATIO Normal 10-20 [facility] Comment on above: Performed By: #### L 501.5200, L500.4050 ####[facility] [address] [place], [address] Calcium [Mass/Vol] 9.6 mg/dL Normal 7.6-11.0 [facility] Comment on above: Performed By: #### L 501.5200, L500.4050 ####[facility] [address] [place], [address] Chloride [Moles/Vol] 95 mmol/L Low 98-108 [facility] Comment on above: Performed By: #### L 501.5200, L500.4050 ####[facility] [address] [place], [address] CO2 [Moles/Vol] 25.0 mmol/L Normal 21.0-32.0 [facility] Comment on above: Performed By: #### L 501.5200, L500.4050 ####[facility] [address] [place], [address] Creatinine [Mass/Vol] 0.68 mg/dL Low 0.70-1.20 [facility] Comment on above: Performed By: #### L 501.5200, L500.4050 ####[facility] [address] [place], [address] GAP 12 Normal 5-15 [facility] Comment on above: Performed By: #### L 501.5200, L500.4050 ####[facility] [address] [place], [address] GFR/1.73 sq M.predicted among non-blacks MDRD (S/P/Bld) [Vol rate/Area] 99 mL/min/{1.73_m2} Normal >60 [facility] Comment on above: Result Comment: mL/m in/1.73m2 CKD-EPI Creatinine Equation (2020) Performed By: #### L 501.5200, L500.4050 ####[facility] [address] [place], [address] Globulin (S) [Mass/Vol] 2.8 g/dL Normal 2.2-4.2 [facility] Comment on above: Performed By: #### L 501.5200, L500.4050 ####[facility] [address] [place], [address] Glucose [Mass/Vol] 88 mg/dL Normal 70-99 [facility] Comment on above: Performed By: #### L 501.5200, L500.4050 ####[facility] [address] [place], [address] Potassium [Moles/Vol] 3.8 mmol/L Normal 3.3-5.1 [facility] Comment on above: Performed By: #### L 501.5200, L500.4050 ####[facility] [address] [place], [address] Sodium [Moles/Vol] 132 mmol/L Low 133-145 [facility] Comment on above: Performed By: #### L 501.5200, L500.4050 ####[facility] [address] [place], [address] T PROT 7.3 g/dL Normal 5.9-8.4 [facility] Comment on above: Performed By: #### L 501.5200, L500.4050 ####[facility] [address] [place], [address] Urea nitrogen [Mass/Vol] 7 mg/dL Normal 4-19 [facility] Comment on above: Performed By: #### L 501.5200, L500.4050 ####[facility] [address] [place], [address] Internal Medicine Office Vis vlad 07-10-2024 Internal Medicine Office Visit [facility] [address] [place] [address] [place] [address] OFFICE VISIT Date of Service: 07/10/24 MR#: [id number] Acct: [id number] Name: CONNIE GREENBERG Rep #: [id number] : 1960 Provider: Dr. Lee gallo MD Age/Sex: 63/F Location: [facility] [place] Status: Signed Intake Vital Signs 04/10/24 10:26 [...] PO DAILY@0800 blood thinner 12/27/16 07/10/24 Rx sbtajwon-jaec-krakk acid 240 1 tab PO DAILY vitamin 03/07/20 History mcg-vit K 120 yer-swhvdx-aoxp 293 tablet (Alive Women's 50 Plus (fruit-veg [...] you fallen in the past year?: No [facility] Medical History (Updated 07/10/24 @ 14:54 by [...] allergies An (more content not included)... Normal [facility] Magnesiumon 07-10-2024 Magnesium [Mass/Vol] 2.2 mg/dL Normal 1.5-2.2 [facility] Comment on above: Performed By: #### L 501.5200, L500.4050 ####[facility] [address] [place], [address] Basic Metabolic Profile (BMP )on 06-04-2024 BUN/CRE 10.2 RATIO Normal 10-20 [facility] Comment on above: Performed By: #### L 501.4021, L500.2500, L100.0100 ####[facility] [address] [place], [address] Calcium [Mass/Vol] 9.5 mg/dL Normal 7.6-11.0 [facility] Comment on above: Performed By: #### L 501.4021, L500.2500, L100.0100 ####[facility] [address] [place], [address] Chloride [Moles/Vol] 101 mmol/L Normal 98-108 [facility] Comment on above: Performed By: #### L 501.4021, L500.2500, L100.0100 ####[facility] [address] [place], [address] CO2 [Moles/Vol] 22.9 mmol/L Normal 21.0-32.0 [facility] Comment on above: Performed By: #### L 501.4021, L500.2500, L100.0100 ####[facility] [address] [place], [address] Creatinine [Mass/Vol] 0.70 mg/dL Normal 0.70-1.20 [facility] Comment on above: Performed By: #### L 501.4021, L500.2500, L100.0100 ####[facility] [address] [place], [address] ECRCL 77.87 ml/min Normal 50-250 [facility] Comment on above: Performed By: #### L 501.4021, L500.2500, L100.0100 ####[facility] [address] [place], [address] GAP 12 Normal 5-15 [facility] Comment on above: Performed By: #### L 501.4021, L500.2500, L100.0100 ####[facility] [address] [place], [address] GFR/1.73 sq M.predicted among non-blacks MDRD (S/P/Bld) [Vol rate/Area] 99 mL/min/{1.73_m2} Normal >60 [facility] Comment on above: Result Comment: mL/m in/1.73m2 CKD-EPI Creatinine Equation (2020) Performed By: #### L 501.4021, L500.2500, L100.0100 ####[facility] [address] [place], [address] Glucose [Mass/Vol] 147 mg/dL High 70-99 [facility] Comment on above: Performed By: #### L 501.4021, L500.2500, L100.0100 ####[facility] [address] [place], [address] Potassium [Moles/Vol] 3.9 mmol/L Normal 3.3-5.1 [facility] Comment on above: Performed By: #### L 501.4021, L500.2500, L100.0100 ####[facility] [address] [place], [address] Sodium [Moles/Vol] 136 mmol/L Normal 133-145 [facility] Comment on above: Performed By: #### L 501.4021, L500.2500, L100.0100 ####[facility] [address] [place], [address] Urea nitrogen [Mass/Vol] 7 mg/dL Normal 4-19 [facility] Comment on above: Performed By: #### L 501.4021, L500.2500, L100.0100 ####[facility] [address] [place], [address] CBC W/Diff, Automatedon 05-13 Absolute Lymph 1.49 X10 3/uL Normal 0.83-4.51 [facility] Comment on above: Performed By: #### L 501.4021, L500.2500, L100.0100 ####[facility] [address] [place], [address] Absolute Neut 3.9 X10 3/uL Normal 2.0-7.7 [facility] Comment on above: Performed By: #### L 501.4021, L500.2500, L100.0100 ####[facility] [address] [place], [address] Basophils/100 WBC (Bld) 0.0 % Normal 0-1 [facility] Comment on above: Performed By: #### L 501.4021, L500.2500, L100.0100 ####[facility] [address] [place], [address] Eosinophils/100 WBC (Bld) 3.3 % Normal 0-5 [facility] Comment on above: Performed By: #### L 501.4021, L500.2500, L100.0100 ####[facility] [address] [place], [address] Erythrocyte distribution width (RBC) [Ratio] 12.7 % Normal 11.6-14.6 [facility] Comment on above: Performed By: #### L 501.4021, L500.2500, L100.0100 ####[facility] [address] [place], [address] Hematocrit (Bld) [Volume fraction] 34.9 % Low 37-47 [facility] Comment on above: Performed By: #### L 501.4021, L500.2500, L100.0100 ####[facility] [address] [place], [address] Hemoglobin (Bld) [Mass/Vol] 11.7 g/dL Low 12.0-15.0 [facility] Comment on above: Performed By: #### L 501.4021, L500.2500, L100.0100 ####[facility] [address] [place], [address] IG% 0.300 Normal 0.0-0.9 [facility] Comment on above: Result Comment: IG% - Immature Granulocytes (promyelocytes, myelocytes and metamyelocytes) > 1% indicates that a LEFT SHIFT is Present. Performed By: #### L 501.4021, L500.2500, L100.0100 ####[facility] [address] [place], [address] Lymphocytes/100 WBC (Bld) 24.3 % Normal 19-41 [facility] Comment on above: Performed By: #### L 501.4021, L500.2500, L100.0100 ####[facility] [address] [place], [address] MCH (RBC) [Entitic mass] 31.7 pg Normal 27.0-32.0 [facility] Comment on above: Performed By: #### L 501.4021, L500.2500, L100.0100 ####[facility] [address] [place], [address] MCHC (RBC) [Mass/Vol] 33.5 g/dL Normal 32-36 [facility] Comment on above: Performed By: #### L 501.4021, L500.2500, L100.0100 ####[facility] [address] [place], [address] MCV (RBC) [Entitic vol] 94.6 fL Normal 81-99 [facility] Comment on above: Performed By: #### L 501.4021, L500.2500, L100.0100 ####[facility] [address] [place], [address] Monocytes/100 WBC (Bld) 8.3 % Normal 0-10 [facility] Comment on above: Performed By: #### L 501.4021, L500.2500, L100.0100 ####[facility] [address] [place], [address] Neutrophils/100 WBC (Bld) 63.8 % Normal 47-70 [facility] Comment on above: Performed By: #### L 501.4021, L500.2500, L100.0100 ####[facility] [address] [place], [address] Nucleated RBC (Bld) [#/Vol] 0 10*3/uL Normal 0-5 [facility] Comment on above: Performed By: #### L 501.4021, L500.2500, L100.0100 ####[facility] [address] [place], [address] Platelet mean volume (Bld) [Entitic vol] 9.5 fL Normal 6.2-12.0 [facility] Comment on above: Performed By: #### L 501.4021, L500.2500, L100.0100 ####[facility] [address] [place], [address] Platelets (Bld) [#/Vol] 304 10*3/uL Normal 150-450 [facility] Comment on above: Performed By: #### L 501.4021, L500.2500, L100.0100 ####[facility] [address] [place], [address] RBC (Bld) [#/Vol] 3.69 10*6/uL Low 4.2-5.4 [facility] Comment on above: Performed By: #### L 501.4021, L500.2500, L100.0100 ####[facility] [address] [place], [address] RDW SD 43.7 fl Normal 35.1-43.9 [facility] Comment on above: Performed By: #### L 501.4021, L500.2500, L100.0100 ####[facility] [address] [place], [address] WBC (Bld) [#/Vol] 6.1 10*3/uL Normal 4.4-11.0 [facility] Comment on above: Performed By: #### L 501.4021, L500.2500, L100.0100 ####[facility] [address] [place], [address] Chest PA and Lateralon 06-04 Chest PA and Lateral [facility] Imaging Services [address] [place] [address] Chest PA and Lateral MR#: [id number] Acct: [id number] Name: CONNIE GREENBERG Rep #: [id number] : 1960 F 63 From: Bruce herrera MD PCP: Dr. Lee Garcia MD Status: REG ER Study: Chest PA and Lateral Date of Exam: 06/04/24 Exam# [id number] Ordering Dr: Adore Gonzalez DO PROCEDURE: CHEST [...] Lateral IMPRESSION: NO ACUTE FINDINGS. Reading Location: [facility] CC: Dr. Adore Gonzalez DO; Dr. Lee Garcia MD Integrated Specialist: Signed Normal [facility] D-Dimer Quantitative (DVT/PE )on 06-04-2024 D-DIMER QUANT 0.58 FEU/ug/m Invalid Interpretation Code 0.27-0.49 [facility] Comment on above: Order Comment: CRITI LEXIS VALUE CALLED TO naye alva06/04/24 Lori Whyte.RESULTS READ BACK BY same. Result Comment: D-Di sarah ELEVATED (>0.49): Additional studies and clinical assessments are indicated to conclude diagnosis of: Deep Vein Thrombosis (DVT) or Pulmonary Embolism (PE) Performed By: #### L 300.8000 ####[facility] [address] [place], [place], [id number] Emergency Department Summary on 06-04-2024 Emergency Department Summary [facility] Medical Records Department [address] [place] [address] Emergency Department Summary 06/04/24 MR#: [id number] Acct: [id number] Name: CONNIE GREENBERG Rep #: [id number] : 1960 63 From: Adore Gonzalez DO [...] complaints or concerns reported at this time. [facility] Medical History De Quervain's [...] PO DAILY@0800 blood thinner 12/27/16 Unknown Rx cdpypaew-yhst-nvjzd acid 240 1 tab PO DAILY vitamin 03/07/20 Un known History mcg-vit K 120 pbp-bsdmwk-rlff 293 tablet (Alive Women's 50 Plus (fruit-veg [...] mg PO (more content not included)... Normal [facility] L499.0042on 06-04-2024 Trop T High Sen < 6 Normal <=14 [facility] Comment on above: Performed By: #### L 499.0042 ####[facility] [address] [place], [address] L499.0043on 06-04-2024 Trop T High Sen Normal <=14 [facility] Comment on above: Result Comment: Canc elled via OM: Order cancelled - Patient discharged Performed By: #### L 499.0043 ####[facility] [address] [place], [address] L501.4021on 06-04-2024 Trop T High Sen < 6 Normal <=14 [facility] Comment on above: Performed By: #### L 501.4021, L500.2500, L100.0100 ####[facility] [address] [place], [address] Lipaseon 06-04-2024 Lipase [Catalytic activity/Vol] 32 U/L Normal 13-75 [facility] Comment on above: Result Comment: Judi urias note: LIPASE revised reference range effective 22. New Lipase methodology. Expected to produce lower values than the previous assay method. NEW Reference Range: 13 - 75 U/L Performed By: #### L 501.2450, L500.3400 #### [facility] [address] [place], [address] Liver Profileon 06-04-2024 Albumin [Mass/Vol] 4.1 g/dL Normal 3.4-4.8 [facility] Comment on above: Performed By: #### L 501.2450, L500.3400 #### [facility] [address] [place], [address] ALK PHOS 103 U/L Normal 35-104 [facility] Comment on above: Performed By: #### L 501.2450, L500.3400 #### [facility] [address] [place], [address] ALT [Catalytic activity/Vol] 16 U/L Normal <=34 [facility] Comment on above: Performed By: #### L 501.2450, L500.3400 #### [facility] [address] [place], [address] AST [Catalytic activity/Vol] 18 U/L Normal <=31 [facility] Comment on above: Performed By: #### L 501.2450, L500.3400 #### [facility] [address] [place], [address] Bilirubin [Mass/Vol] 0.47 mg/dL Normal 0.00-1.30 [facility] Comment on above: Performed By: #### L 501.2450, L500.3400 #### [facility] [address] [place], [address] Bilirubin.direct [Mass/Vol] 0.21 mg/dL Normal 0.00-0.30 [facility] Comment on above: Performed By: #### L 501.2450, L500.3400 #### [facility] [address] [place], [address] Globulin (S) [Mass/Vol] 2.7 g/dL Normal 2.2-4.2 [facility] Comment on above: Performed By: #### L 501.2450, L500.3400 #### [facility] [address] [place], [address] T PROT 6.8 g/dL Normal 5.9-8.4 [facility] Comment on above: Performed By: #### L 501.3090, L500.3408 #### [facility] [address] [place], [address] Internal Medicine Office Vis iton 06-03-2024 Internal Medicine Office Visit [facility] [address] [place] [address] [place] [address] OFFICE VISIT Date of Service: 06/03/24 MR#: [id number] Acct: [id number] Name: CONNIE GREENBERG Rep #: [id number] : 1960 Provider: ZHANNA Richard Age/Sex: 63/F Location[place] [facility] Status: Signed Intake Vital Signs 04/10/24 10:26 [...] Reasons: acute - bronchitis Chief Complaint: bronchitis Membership Assistant Required: No Accompanied by: Self Is patient [...] PO DAILY@0800 blood thinner 12/27/16 06/03/24 Rx htvsmogf-rapg-owdvu acid 240 1 tab PO DAILY vitamin 03/07/20 History mcg-vit K 120 jnd-iaienw-rlil 293 tablet (Alive Women's 50 Plus (fruit-veg [...] INHALER IN THE AM INTERACTION FLAGGED IN [facility] Medical History De Quervain's tenosynovitis, left Chronic [...] Bee sting (more content not included)... Normal [facility] CNOVon 05-19-2024 CNOV Office Visit (WSTR ) CONNIE GREENBERG ([id number]) 1960 F Date Time Provider Department 05/19/24 6:45 PM EBONI WHITE UCTR During your visit today, we recorded the following information about you: Temperature Pulse Respiration Blood pressure 98 degrees 82/minute 16/minute 136/80 Weight 72.6 kg Eboni White APRN.SYSTEM SUPPORT ADMINISTRATOR 05/19/2024 7:45 PM Signed [facility] [...] Sleep apnea - TIA (transient ischemic attack) 2017 PAST SURGICAL HISTORY Procedure Laterality Date - [...] mg by (more content not included)... Normal [facility] XR CHEST 2V FRONTAL/LATon XR CHEST 2V [...] tissues: Unremarkable. IMPRESSION: No acute radiographic abnormality. Integrated Specialist: PSCB Transcribe Date/Time: May 19 2024 7:18P Dictated by : WHIT RON MD This examination was interpreted and the report reviewed and electronically signed by: WHIT RON MD on May 19 2024 7:19PM EST [id number] Normal [facility] XR Chest PA and Lateralon IMPRESSION: No acute radiographic abnormality. Integrated Specialist: PSCB Transcribe Date/Time: May 19 2024 7:18P Dictated by : WHIT RON MD This examination was interpreted and the report reviewed and electronically signed by: WHTI RON MD on May 19 2024 7:19PM [...] soft tissues: Unremarkable. DIVISION OF RADIOLOGY Provider, [facility] - 05/19/2024 * * *Final Report* * [...] Unremarkable. IMPRESSION IMPRESSION: No acute radiographic abnormality. Integrated Specialist: PSCB Transcribe Date/Time: May 19 2024 7:18P Dictated by : WHIT RON MD This examination was interpreted and the report reviewed and electronically signed by: WHIT RON MD on May 19 2024 7:19PM EST [facility] Radiology Study observation (narrative) [facility] XR Chest PA and LateralOrder ed By: [facility] Provider on 05-19-2024 [facility] CBC W/Diff, Automatedon 03-15 Absolute Lymph 1.55 X10 3/uL Normal 0.83-4.51 [facility] Comment on above: Performed By: #### L 500.4050, L500.4100, L100.0100 #### [facility] [address] [place], [address] Absolute Neut 2.2 X10 3/uL Normal 2.0-7.7 [facility] Comment on above: Performed By: #### L 500.4050, L500.4100, L100.0100 #### [facility] [address] [place], [address] Basophils/100 WBC (Bld) 0.2 % Normal 0-1 [facility] Comment on above: Performed By: #### L 500.4050, L500.4100, L100.0100 #### [facility] [address] [place], [address] Eosinophils/100 WBC (Bld) 5.9 % High 0-5 [facility] Comment on above: Performed By: #### L 500.4050, L500.4100, L100.0100 #### [facility] [address] [place], [address] Erythrocyte distribution width (RBC) [Ratio] 12.4 % Normal 11.6-14.6 [facility] Comment on above: Performed By: #### L 500.4050, L500.4100, L100.0100 #### [facility] [address] [place], [address] Hematocrit (Bld) [Volume fraction] 35.0 % Low 37-47 [facility] Comment on above: Performed By: #### L 500.4050, L500.4100, L100.0100 #### [facility] [address] [place], [address] Hemoglobin (Bld) [Mass/Vol] 11.8 g/dL Low 12.0-15.0 [facility] Comment on above: Performed By: #### L 500.4050, L500.4100, L100.0100 #### [facility] [address] [place], [address] IG% 0.200 Normal 0.0-0.9 [facility] Comment on above: Result Comment: IG% - Immature Granulocytes (promyelocytes, myelocytes and metamyelocytes) > 1% indicates that a LEFT SHIFT is Present. Performed By: #### L 500.4050, L500.4100, L100.0100 #### [facility] [address] [place], [address] Lymphocytes/100 WBC (Bld) 35.0 % Normal 19-41 [facility] Comment on above: Performed By: #### L 500.4050, L500.4100, L100.0100 #### [facility] [address] [place], [address] MCH (RBC) [Entitic mass] 32.2 pg High 27.0-32.0 [facility] Comment on above: Performed By: #### L 500.4050, L500.4100, L100.0100 #### [facility] [address] [place], [address] MCHC (RBC) [Mass/Vol] 33.7 g/dL Normal 32-36 [facility] Comment on above: Performed By: #### L 500.4050, L500.4100, L100.0100 #### [facility] [address] [place], [address] MCV (RBC) [Entitic vol] 95.6 fL Normal 81-99 [facility] Comment on above: Performed By: #### L 500.4050, L500.4100, L100.0100 #### [facility] [address] [place], [address] Monocytes/100 WBC (Bld) 8.6 % Normal 0-10 [facility] Comment on above: Performed By: #### L 500.4050, L500.4100, L100.0100 #### [facility] [address] [place], [address] Neutrophils/100 WBC (Bld) 50.1 % Normal 47-70 [facility] Comment on above: Performed By: #### L 500.4050, L500.4100, L100.0100 #### [facility] [address] [place], [address] Nucleated RBC (Bld) [#/Vol] 0 10*3/uL Normal 0-5 [facility] Comment on above: Performed By: #### L 500.4050, L500.4100, L100.0100 #### [facility] [address] [place], [address] Platelet mean volume (Bld) [Entitic vol] 9.7 fL Normal 6.2-12.0 [facility] Comment on above: Performed By: #### L 500.4050, L500.4100, L100.0100 #### [facility] [address] [place], [address] Platelets (Bld) [#/Vol] 266 10*3/uL Normal 150-450 [facility] Comment on above: Performed By: #### L 500.4050, L500.4100, L100.0100 #### [facility] [address] [place], [address] RBC (Bld) [#/Vol] 3.66 10*6/uL Low 4.2-5.4 [facility] Comment on above: Performed By: #### L 500.4050, L500.4100, L100.0100 #### [facility] [address] [place], [address] RDW SD 43.8 fl Normal 35.1-43.9 [facility] Comment on above: Performed By: #### L 500.4050, L500.4100, L100.0100 #### [facility] [address] [place], [address] WBC (Bld) [#/Vol] 4.4 10*3/uL Normal 4.4-11.0 [facility] Comment on above: Performed By: #### L 500.4050, L500.4100, L100.0100 #### [facility] [address] [place], [address] Comprehensive Metabolic Prof [facility] 04-10-2024 Albumin [Mass/Vol] 4.2 g/dL Normal 3.4-4.8 [facility] Comment on above: Performed By: #### L 500.4050, L500.4100, L100.0100 #### [facility] [address] [place], [address] Albumin/Globulin [Mass ratio] 1.7 {ratio} Normal 0.9-2.4 [facility] Comment on above: Performed By: #### L 500.4050, L500.4100, L100.0100 #### [facility] [address] [place], [address] ALK PHOS 97 U/L Normal 35-104 [facility] Comment on above: Performed By: #### L 500.4050, L500.4100, L100.0100 #### [facility] [address] [place], [address] ALT [Catalytic activity/Vol] 27 U/L Normal <=34 [facility] Comment on above: Performed By: #### L 500.4050, L500.4100, L100.0100 #### [facility] [address] [place], [address] Anion gap [Moles/Vol] 10 mmol/L Normal 5-15 [facility] Comment on above: Performed By: #### L 500.4050, L500.4100, L100.0100 #### [facility] [address] [place], [address] AST [Catalytic activity/Vol] 32 U/L Normal <=31 [facility] Comment on above: Performed By: #### L 500.4050, L500.4100, L100.0100 #### [facility] [address] [place], [address] Bilirubin [Mass/Vol] 0.31 mg/dL Normal 0.00-1.30 [facility] Comment on above: Performed By: #### L 500.4050, L500.4100, L100.0100 #### [facility] [address] [place], [address] BUN/CRE 12.3 RATIO Normal 10-20 [facility] Comment on above: Performed By: #### L 500.4050, L500.4100, L100.0100 #### [facility] [address] [place], [address] Calcium [Mass/Vol] 9.3 mg/dL Normal 7.6-11.0 [facility] Comment on above: Performed By: #### L 500.4050, L500.4100, L100.0100 #### [facility] [address] [place], [address] Chloride [Moles/Vol] 98 mmol/L Normal 96-108 [facility] Comment on above: Performed By: #### L 500.4050, L500.4100, L100.0100 #### [facility] [address] [place], [address] CO2 [Moles/Vol] 26.9 mmol/L Normal 22.0-29.0 [facility] Comment on above: Performed By: #### L 500.4050, L500.4100, L100.0100 #### [facility] [address] [place], [address] Creatinine [Mass/Vol] 0.65 mg/dL Low 0.70-1.20 [facility] Comment on above: Performed By: #### L 500.4050, L500.4100, L100.0100 #### [facility] [address] [place], [address] GFR/1.73 sq M.predicted among non-blacks MDRD (S/P/Bld) [Vol rate/Area] 100 mL/min/{1.73_m2} Normal >60 [facility] Comment on above: Result Comment: mL/m in/1.73m2 CKD-EPI Creatinine Equation (2020) Performed By: #### L 500.4050, L500.4100, L100.0100 #### [facility] [address] [place], [address] Globulin (S) [Mass/Vol] 2.5 g/dL Normal 2.2-4.2 [facility] Comment on above: Performed By: #### L 500.4050, L500.4100, L100.0100 #### [facility] [address] [place], [address] Glucose [Mass/Vol] 98 mg/dL Normal 70-99 [facility] Comment on above: Performed By: #### L 500.4050, L500.4100, L100.0100 #### [facility] [address] [place], [address] Potassium [Moles/Vol] 4.5 mmol/L Normal 3.3-5.1 [facility] Comment on above: Performed By: #### L 500.4050, L500.4100, L100.0100 #### [facility] [address] [place], [address] Sodium [Moles/Vol] 135 mmol/L Normal 133-145 [facility] Comment on above: Performed By: #### L 500.4050, L500.4100, L100.0100 #### [facility] [address] [place], [address] T PROT 6.7 g/dL Normal 5.9-8.4 [facility] Comment on above: Performed By: #### L 500.4050, L500.4100, L100.0100 #### [facility] [address] [place], [address] Urea nitrogen [Mass/Vol] 8 mg/dL Normal 4-19 [facility] Comment on above: Performed By: #### L 500.4050, L500.4100, L100.0100 #### [facility] [address] [place], [address] Internal Medicine Office Vis vlad 04-10-2024 Internal Medicine Office Visit [facility] [address] [place] [address] [place] [address] OFFICE VISIT Date of Service: 04/10/24 MR#: [id number] Acct: [id number] Name: CONNIE GREENBERG Rep #: [id number] : 1960 Provider: Dr. Lee gallo MD Age/Sex: 63/F Location[place] [facility] Status: Signed Intake Vital Signs 02/10/24 10:32 [...] PO DAILY@0800 blood thinner 12/27/16 04/10/24 Rx tvsqhrab-bcqv-dcoah acid 240 1 tab PO DAILY vitamin 03/07/20 History mcg-vit K 120 lul-duufee-zcsb 293 tablet (Alive Women's 50 Plus (fruit-veg [...] you fallen in the past year?: No PFSH Medical History (Updated 04/10/24 @ 12:12 by [...] reflux dis (more content not included)... Normal [facility] Lipid Profileon 04-10-2024 CHOL:HDL 2.[address] [facility] Comment on above: Performed By: #### L 500.4050, L500.4100, L100.0100 #### [facility] [address] [facility] [place], [address] Cholesterol [Mass/Vol] 138 mg/dL Normal <=200 [facility] Comment on above: Result Comment: Chol esterol level, Desirable <200 mg/dL Borderline high cholesterol 200-239 mg/dL High cholesterol >=240 mg/dL Recommendations of the NCEP Adult Treatment Panel for the following risk-cutoff thresholds for the [place] population. Performed By: #### L 500.4050, L500.4100, L100.0100 #### [facility] [address] [place], [address] Cholesterol in HDL [Mass/Vol] 63 mg/dL Normal [facility] Comment on above: Result Comment: Sarah onal Cholesterol Education Program (NCEP) guidelines: <40 mg/dL: Low HDL-cholesterol (major risk factor for CHD) >= 60 mg/dL: High HDL-cholesterol (negative risk factor for CHD) HDL-cholesterol is affected by a number of factors, e.g. smoking, exercise, hormones, sex and age. Performed By: #### L 500.4050, L500.4100, L100.0100 #### [facility] [address] [place], [address] Cholesterol in LDL [Mass/Vol] 60 mg/dL Normal [facility] Comment on above: Result Comment: Bord osevwg=699-520 mg/dL Higher Usmm=009 mg/dL or greater Performed By: #### L 500.4050, L500.4100, L100.0100 #### [facility] [address] [place], [address] Cholesterol in VLDL [Mass/Vol] 15 mg/dL Normal 5-40 [facility] Comment on above: Performed By: #### L 500.4050, L500.4100, L100.0100 #### [facility] [address] [place], [address] Triglyceride [Mass/Vol] 77 mg/dL Normal [facility] Comment on above: Result Comment: The drugs N-Acetylcysteine and Metamizole may falsely depress this assay. Normal range: <150 mg/dL Borderline High: 150-199 mg/dL High: 200-499 mg/dL Very High: >500 mg/dL Performed By: #### L 500.4050, L500.4100, L100.0100 #### [facility] [address] [place], [address] /Nuvia 04-09-2024 / [address], [address] [place] [address] OFFICE VISIT Date of Service: 04/09/24 MR#: [id number] Acct: [id number] Name: CONNIE GREENBERG Rep #: [id number] : 1960 Provider: Dr. Osvaldo Fung se, DO Age/Sex: 63/F Location: [facility] [place] Status: Signed Intake Vital Signs 02/10/24 10:32 [...] PO DAILY@0800 blood thinner 12/27/16 04/09/24 Rx shqqhlhn-xmrs-cwfii acid 240 1 tab PO DAILY vitamin 03/07/20 History mcg-vit K 120 bte-splxpm-lzbx 293 tablet (Alive Women's 50 Plus (fruit-veg [...] mg PO QHS seizure 30 days #30 02/27/25 02/27/25 Rx tabs PFSH Medical History (Updated 02/10/24 [...] vascular acciden (more content not included)... [facility] Office Visit (UCWSTR ) CONNIE GREENBERG ([id number]) 1960 F Date Time Provider Department 03/15/24 1:30 PM EBONI [facility] During your visit today, we recorded the following information about you: Temperature Pulse Respiration Blood pressure 100.7 degrees 100/minute 20/minute 160/88 Weight 76.4 kg Eboni White APRN.SYSTEM SUPPORT ADMINISTRATOR 03/15/2024 2:36 PM Signed Subjective Cough Associated symptoms include headaches. Pertinent negatives include no chest pain, no chills, no ear pain, no sore throat and no myalgias. Conniesheree Hernandezts is a 63 year old female who [...] Bipolar disorder (HCC) CVA (cerebral vascular accident) ([facility]) Diarrhea, functional GERD (gastroesophageal reflux disease) Hiatal [...] mouth three (more content not included)... Normal [facility] INFLUENZA A&B MOLECULAR (POC )on 03-15-2024 Flu A (POCT) Positive Abnormal Negative [facility] Comment on above: Location:[address], [place], [address] Interpretation and review of laboratory results Abnormal [facility] Procedural Control Valid [facility] Location:[facility], [address] [place] [address], [place], [place], [id number] [place] [address] POINT OF CARE [facility] Chest 1 Viewon 02-10-2024 Chest 1 View [facility] Imaging Services [address] [place] [id number] Chest 1 View MR#: [id number] Acct: [id number] Name: CONNIE GREENBERG Rep #: [id number] : 1960 F 63 From: Eh Wayne MD PCP: Dr. Lee Garcia MD Status: [facility] Study: Chest 1 View Date of Exam: 02/10/24 Exam# [id number] Ordering Dr: Lee Garcia MD [id number] STUDY: X-RAY CHEST REASON FOR EXAM: Female, [...] EST , CC: Dr. Lee Garcia MD Integrated Specialist: Signed Normal [facility] Internal Medicine Office Vis iton 02-10-2024 Internal Medicine Office Visit [facility] [address] [place] [address] [place] [address] OFFICE VISIT Date of Service: 02/10/24 MR#: [id number] Acct: [id number] Name: CONNIE GREENBERG Rep #: [id number] : 1960 Provider: Dr. Lee gallo MD Age/Sex: 63/F Location: [facility] Status: Signed Intake Vital Signs 11/04/23 10:41 [...] 3 M FU Chief Complaint: 3m f/u Membership Assistant Required: No Accompanied by: Self Is patient [...] PO DAILY@0800 blood thinner 12/27/16 02/10/24 Rx adwtxkeu-bdkw-flldo acid 240 1 tab PO DAILY vitamin 03/07/20 02/10/24 History mcg-vit K 120 vbr-dfgafo-pcuq 293 tablet (Alive Women's 50 Plus (fruit-veg [...] (cerebral v (more content not included)... Normal [facility] L/S Spine Min 4 Viewson 01-12 L/S Spine Min 4 Views [facility] Imaging Services [address] [place] [address] L/S Spine Min 4 Views MR#: [id number] Acct: [id number] Name: CONNIE GREENBERG Rep #: [id number] : 1960 F 63 From: Fran Hickey MD PCP: Dr. Lee Garcia MD Status: REG CLI Study: L/S Spine Min 4 Views Date of Exam: 02/07/24 Exam# [id number] Ordering Dr: Lee Garcia MD [id number] STUDY: X-RAY - LUMBAR SPINE REASON FOR [...] EST , CC: Dr. Lee Garcia MD Integrated Specialist: Signed Normal [facility] Internal Medicine Office Vis vlad 01-27-2024 Internal Medicine Office Visit [facility] [address] [place] [address] [place] [address] OFFICE VISIT Date of Service: 01/27/24 MR#: [id number] Acct: [id number] Name: CONNIE GREENBERG Rep #: [id number] : 1960 Provider: Dr. Lee gallo MD Age/Sex: 63/F Location: [facility] Status: Signed Intake Vital Signs 12/09/23 11:35 [...] Reasons: BACK PAIN Chief Complaint: back pain Membership Assistant Required: No Accompanied by: Self Is patient [...] PO DAILY@0800 blood thinner 12/27/16 01/27/24 Rx ffrrkyil-byfl-bobnw acid 240 1 tab PO DAILY vitamin 03/07/20 01/27/24 History mcg-vit K 120 wgg-keevqz-bteb 293 tablet (Alive Women's 50 Plus (fruit-veg [...] effusion (noninfl (more content not included)... Normal [facility] Re-Evaluation - PT (1)on Re-Evaluation - PT (1) [facility] [address] [place] [address]. [address] [place] [address] / REEVALUATION / MEDICARE RECERTIFICATION PHYSICAL THERAPY MR#: [id number] Acct: [id number] Name: CONNIE GREENBERG Rep #: [id number] : 1960 63 From: Hayden Burns DPT, OCS, CSCS Referring Dr.: URIEL Araujo Status:REG RCR Insurance: [facility] SELF PAY INSURANCE Re-Evaluation Intro: URIEL Oswald, It has been my pleasure to treat CALLUM GREENBERG over the last 8 visits for sciatica, dorsalgia. Please see the progress note below for an update on the physical therapy plan of care! Subjective Subjective: Went on vacation to [place]. It went well but got sick in [...] postural strength adn work to I at [employer], verbally see if she is continuing in [...] do not hesitate to contact me at [phone] by phone or if you have questions or concerns regarding this new plan of care! Sincerely, Hayden Burns DPT, OCS, CSCS 01/23/24 1126 CC: URIEL Araujo; Dr. Lee Garcia MD EBG Signed For Medicare only, by signing this I certify the plan of care. Physicians Signature Date Normal [facility] Inital Evaluation (1) - PTon 12-16-2023 Inital Evaluation (1) - PT [facility] [address] [place] [address] / REHABILITATION SERVICES INITIAL EVALUATION MR#: [id number] Acct: [id number] Name: CONNIE GREENBERG Rep #: [id number] : 1960 63 From: Hayden Burns DPT, ROX, CSCS Referring Dr.: URIEL Oswald Status: REG R Insurance: [facility] SELF PAY INSURANCE Patient's Visit Information Visit Information Visit Information: CONNIE GREENBERG is a 63 year old F referred to Physical Therapy by URIEL Oswald with a diagnosis of sciatica, dorsalgia. Date of Evaluation: 12/16/23 Physical Therapist: Hayden Burns DPT, ROX, CSCS Visit Plan Frequency: 2x /Week Duration: [...] to be FAXED BACK to us at [phone] for Medicare purposes. For Medicare only, by signing this I certify the plan of care. Please let me know if there are questions or concerns regarding this plan of care. Physician Signature: Date : 12/16/23 1345 CC: URIEL Araujo; Dr. Lee Garcia MD EBG Signed Normal [facility] Internal Medicine Office Vis vlad 12-09-2023 Internal Medicine Office Visit [facility] [place] [address] [place] [address] OFFICE VISIT Date of Service: 12/09/23 MR#: [id number] Acct: [id number] Name: CONNIE GREENBERG Rep #: [id number] : 1960 Provider: URIEL diana Age/Sex: 63/F [place] [facility] Status: Signed Intake Vital Signs 11/26/23 13:38 [...] INFECTION/BACK PAIN Chief Complaint: FU Chronic conditions. Membership Assistant Required: No Is patient in pain?: Yes [...] PO DAILY@0800 blood thinner 12/27/16 12/09/23 Rx yacxkbwf-qkxz-iytco acid 240 1 tab PO DAILY vitamin 03/07/20 12/09/23 History mcg-vit K 120 qpa-ubhjhf-belq 293 tablet (Alive Women's 50 Plus (fruit-veg [...] then if not helped she uses ibuprofen. PFSH Medical History CHIUQI (obstructive sleep apnea) Migraine Obesity (BMI 30.0-34.9) [...] depression GERD (more content not included)... Normal [facility] MR/BMS.BPon 11-26-2023 MR/BMS.BP [facility] [facility], [address] [place] [address] OFFICE VISIT Date of Service: 11/26/23 MR#: [id number] Acct: [id number] Name: CONNIE GREENBERG Rep #: [id number] : 1960 Provider: Dr. Osvaldo Fung se, DO Age/Sex: 63/F Location: [facility] [place] Status: Signed Intake Vital Signs 09/26/23 13:52 [...] PO DAILY@0800 blood thinner 12/27/16 11/26/23 Rx povswdup-knza-kuvvs acid 240 1 tab PO DAILY vitamin 03/07/20 11/26/23 History mcg-vit K 120 nrf-jlwnud-jdcs 293 tablet (Alive Women's 50 Plus (fruit-veg [...] Smoking Statu (more content not included)... Normal [facility] Echo Completeon 11-18-[address] [facility] [address] [place] [address] Echo Complete 11/18/23 1401 MR#: [id number] Acct: [id number] Name: CONNIE GREENBERG Rep #: [id number] : 1960 63 From: Fish Ag MD Attending Dr: Dr. Lee Garcia MD Status: REG CLI Ordering Dr: Lee Garcia MD Date: 11/18/23 Location: [facility] Sex: F C Admitted: Reason For Study: [...] Physician: Lee Garcia Performed By: Ivon Gong, [facility] 11/18/231803 Date Fish Ag MD CC: Dr. Lee Garcia MD Date Dictated: 11/18/231400 Date Transcribed: 11/18/231803 Integrated Specialist: Signed Normal [facility] CBC W/Diff, Automatedon 09-2 Absolute Lymph 1.19 X10 3/uL Normal 0.83-4.51 [facility] Comment on above: Performed By: #### L 506.1000, L100.0100, L500.4050 #### [facility] [address] [place], [place], [address] Absolute Neut 4.4 X10 3/uL Normal 2.0-7.7 [facility] Comment on above: Performed By: #### L 506.1000, L100.0100, L500.4050 #### [facility] [address] [place], [address] Basophils/100 WBC (Bld) 0.0 % Normal 0-1 [facility] Comment on above: Performed By: #### L 506.1000, L100.0100, L500.4050 #### [facility] [address] [place], [address] Eosinophils/100 WBC (Bld) 2.5 % Normal 0-5 [facility] Comment on above: Performed By: #### L 506.1000, L100.0100, L500.4050 #### [facility] [address] [place], [address] Erythrocyte distribution width (RBC) [Ratio] 12.7 % Normal 11.6-14.6 [facility] Comment on above: Performed By: #### L 506.1000, L100.0100, L500.4050 #### [facility] [address] [place], [address] Hematocrit (Bld) [Volume fraction] 37.4 % Normal 37-47 [facility] Comment on above: Performed By: #### L 506.1000, L100.0100, L500.4050 #### [facility] [address] [place], [address] Hemoglobin (Bld) [Mass/Vol] 12.0 g/dL Normal 12.0-15.0 [facility] Comment on above: Performed By: #### L 506.1000, L100.0100, L500.4050 #### [facility] [address] [place], [address] IG% 0.300 Normal 0.0-0.9 [facility] Comment on above: Result Comment: IG% - Immature Granulocytes (promyelocytes, myelocytes and metamyelocytes) > 1% indicates that a LEFT SHIFT is Present. Performed By: #### L 506.1000, L100.0100, L500.4050 #### [facility] [address] [place], [address] Lymphocytes/100 WBC (Bld) 18.8 % Low 19-41 [facility] Comment on above: Performed By: #### L 506.1000, L100.0100, L500.4050 #### [facility] [address] [place], [address] MCH (RBC) [Entitic mass] 30.5 pg Normal 27.0-32.0 [facility] Comment on above: Performed By: #### L 506.1000, L100.0100, L500.4050 #### [facility] [address] [place], [address] MCHC (RBC) [Mass/Vol] 32.1 g/dL Normal 32-36 [facility] Comment on above: Performed By: #### L 506.1000, L100.0100, L500.4050 #### [facility] [address] [place], [address] MCV (RBC) [Entitic vol] 94.9 fL Normal 81-99 [facility] Comment on above: Performed By: #### L 506.1000, L100.0100, L500.4050 #### [facility] [address] [place], [address] Monocytes/100 WBC (Bld) 8.4 % Normal 0-10 [facility] Comment on above: Performed By: #### L 506.1000, L100.0100, L500.4050 #### [facility] [address] [place], [address] Neutrophils/100 WBC (Bld) 70.0 % Normal 47-70 [facility] Comment on above: Performed By: #### L 506.1000, L100.0100, L500.4050 #### [facility] [address] [place], [address] Nucleated RBC (Bld) [#/Vol] 0 10*3/uL Normal 0-5 [facility] Comment on above: Performed By: #### L 506.1000, L100.0100, L500.4050 #### [facility] [address] [place], [address] Platelet mean volume (Bld) [Entitic vol] 9.8 fL Normal 6.2-12.0 [facility] Comment on above: Performed By: #### L 506.1000, L100.0100, L500.4050 #### [facility] [address] [place], [address] Platelets (Bld) [#/Vol] 275 10*3/uL Normal 150-450 [facility] Comment on above: Performed By: #### L 506.1000, L100.0100, L500.4050 #### [facility] [address] [place], [address] RBC (Bld) [#/Vol] 3.94 10*6/uL Low 4.2-5.4 [facility] Comment on above: Performed By: #### L 506.1000, L100.0100, L500.4050 #### [facility] [address] [place], [address] RDW SD 44.1 fl High 35.1-43.9 [facility] Comment on above: Performed By: #### L 506.1000, L100.0100, L500.4050 #### [facility] [address] [place], [address] WBC (Bld) [#/Vol] 6.3 10*3/uL Normal 4.4-11.0 [facility] Comment on above: Performed By: #### L 506.1000, L100.0100, L500.4050 #### [facility] [address] [place], [address] Comprehensive Metabolic Prof kelsey 11-04-2023 Albumin [Mass/Vol] 3.8 g/dL Normal 3.2-5.0 [facility] Comment on above: Performed By: #### L 506.1000, L100.0100, L500.4050 #### [facility] [address] [place], [address] Albumin/Globulin [Mass ratio] 1.1 {ratio} Normal 0.9-2.4 [facility] Comment on above: Performed By: #### L 506.1000, L100.0100, L500.4050 #### [facility] [address] [place], [address] ALK P 150 U/L High 45-117 [facility] Comment on above: Performed By: #### L 506.1000, L100.0100, L500.4050 #### [facility] [address] [place], [address] ALT [Catalytic activity/Vol] 20 U/L Normal 13-56 [facility] Comment on above: Performed By: #### L 506.1000, L100.0100, L500.4050 #### [facility] [address] [place], [address] AST [Catalytic activity/Vol] 14 U/L Low 15-37 [facility] Comment on above: Performed By: #### L 506.1000, L100.0100, L500.4050 #### [facility] [address] [place], [address] Bilirubin [Mass/Vol] 0.50 mg/dL Normal 0.20-1.00 [facility] Comment on above: Result Comment: For patients on eltrombopag therapy, use of Dimension Poneto TBIL is not recommended. Performed By: #### L 506.1000, L100.0100, L500.4050 #### [facility] [address] [place], [address] BUN/CRE 11.9 RATIO Normal 10-20 [facility] Comment on above: Performed By: #### L 506.1000, L100.0100, L500.4050 #### [facility] [address] [place], [address] CA,Total 10.0 mg/dL Normal 8.5-10.1 [facility] Comment on above: Performed By: #### L 506.1000, L100.0100, L500.4050 #### [facility] [address] [place], [address] Chloride [Moles/Vol] 100 mmol/L Normal 98-107 [facility] Comment on above: Performed By: #### L 506.1000, L100.0100, L500.4050 #### [facility] [address] [place], [address] CO2 [Moles/Vol] 27.0 mmol/L Normal 21.0-32.0 [facility] Comment on above: Performed By: #### L 506.1000, L100.0100, L500.4050 #### [facility] [address] [place], [address] Creatinine [Mass/Vol] 0.92 mg/dL Normal 0.55-1.02 [facility] Comment on above: Result Comment: The validity of the calculated GFR GFRAA in patients over 70 years has not been determined. Clinical correlation is essential. Performed By: #### L 506.1000, L100.0100, L500.4050 #### [facility] [address] [place], [address] EST GFR - AA 80 mL/min Normal >60 [facility] Comment on above: Result Comment: Afri can Indian GFR Calc Performed By: #### L 506.1000, L100.0100, L500.4050 #### [facility] [address] [place], [address] GAP 7 Normal 5-15 [facility] Comment on above: Performed By: #### L 506.1000, L100.0100, L500.4050 #### [facility] [address] [place], [address] GFR/1.73 sq M.predicted among non-blacks MDRD (S/P/Bld) [Vol rate/Area] 66 mL/min/{1.73_m2} Normal >60 [facility] Comment on above: Result Comment: Non- GFR Calc Performed By: #### L 506.1000, L100.0100, L500.4050 #### [facility] [address] [place], [address] Globulin (S) [Mass/Vol] 3.6 g/dL Normal 2.2-4.2 [facility] Comment on above: Performed By: #### L 506.1000, L100.0100, L500.4050 #### [facility] [address] [place], [address] Glucose [Mass/Vol] 129 mg/dL High 74-106 [facility] Comment on above: Result Comment: Fast ing Glucose result greater than or equal to 126 mg/dL suggests DIABETES MELLITUS per A.D.A. criteria. Performed By: #### L 506.1000, L100.0100, L500.4050 #### [facility] [address] [place], [address] Potassium [Moles/Vol] 4.6 mmol/L Normal 3.5-5.1 [facility] Comment on above: Performed By: #### L 506.1000, L100.0100, L500.4050 #### [facility] [address] [place], [address] Sodium [Moles/Vol] 134 mmol/L Low 136-145 [facility] Comment on above: Performed By: #### L 506.1000, L100.0100, L500.4050 #### [facility] [address] [place], [address] T PROT 7.4 g/dL Normal 6.4-8.2 [facility] Comment on above: Performed By: #### L 506.1000, L100.0100, L500.4050 #### [facility] [address] [place], [address] Urea nitrogen [Mass/Vol] 11 mg/dL Normal 7-18 [facility] Comment on above: Performed By: #### L 506.1000, L100.0100, L500.4050 #### [facility] [address] [place], [address] Internal Medicine Office Vis iton 11-04-2023 Internal Medicine Office Visit [facility] [address] [place], [place] [address] OFFICE VISIT Date of Service: 11/04/23 MR#: [id number] Acct: [id number] Name: CONNIE GREENBERG Rep #: [id number] : 1960 Provider: Dr. Lee gallo MD Age/Sex: 63/F Location[place] [facility] Status: Signed Intake Vital Signs 08/02/23 10:01 [...] M FU Chief Complaint: FU Chronic conditions. Membership Assistant Required: No Is patient in pain?: No [...] PO DAILY@0800 blood thinner 12/27/16 11/04/23 Rx gobsbcfs-snfy-kdtis acid 240 1 tab PO DAILY vitamin 03/07/20 11/04/23 History mcg-vit K 120 jlf-pujgqc-ttfr 293 tablet (Alive Women's 50 Plus (fruit-veg [...] (cerebral vascular accident) Surgical History ... Normal [facility] Vitamin D,25 Hydroxyon 11-03 Vitamin D 25-OH 60.4 ng/mL Normal [facility] Comment on above: Result Comment: Xochitl min D 25(OH) Status Range Deficiency <20 ng/mL (50nmol/L) Insufficiency 20 - 30 ng/mL (50 - 75 nmol/L) Sufficiency 30 - 100 ng/mL (75 - 250 nmol/L) Toxicity >100 ng/mL (>250 nmol/L) Performed By: #### L 506.1000, L100.0100, L500.4050 ####[facility] [id number] [place], [address] OVon 10-21-2023 CNOV Office Visit ([facility] ) CONNIE GREENBERG ([id number]) 1960 F Date Time Provider Department 10/21/23 3:00 PM LOUISE MARADIAGA [facility] During your visit today, we recorded the following information about you: Temperature Pulse Respiration Blood pressure 97.4 degrees 76/minute 20/minute 118/70 Weight 79.8 kg Louise Maradiaga, OPHTHALMOLOGIST.SYSTEM SUPPORT ADMINISTRATOR 10/21/2023 3:20 PM Signed Each of us [...] as smoke, should be avoided. Louise Maradiaga, OPHTHALMOLOGIST.SYSTEM SUPPORT ADMINISTRATOR 10/21/2023 3:54 PM Sign (more content not included)... Normal [facility] COVID & INFLUENZA A/B & RSV NAAT, ROUTINEon 04-28-2023 FLUAV RNA WILMER+probe Ql (Unsp spec) Not detected Not Detected [facility] FLUBV RNA WILMER+probe Ql (Unsp spec) Not detected Not Detected [facility] RSV A RNA WILMER+probe Ql (Unsp spec) Not detected Not Detected [facility] SARS-CoV-2 (COVID-19) RNA WILMER+probe Ql (Resp) Not detected See comment [facility] .Auto Diffon 01-16-2023 Basophil, Absolute 0.0 10 3/mcL Normal 0.0-0.3 [facility] ([place]) Comment on above: Performed By: #### A AMADOU OWENS MDW, JARROD, CBC, ADIFF, GFR #### [facility] [address] [place] [address] Basophils/100 WBC (Bld) 0.0 % Normal 0.0-2.5 [facility] ([place]) Comment on above: Performed By: #### A GRACIELA, BMP, MDW, TROPHS, CBC, ADIFF, GFR #### [address] [address] Eosinophil, Absolute 0.1 10 3/mcL Normal 0.0-0.7 [facility] ([place]) Comment on above: Performed By: #### A GRACIELA, BMP, MDW, TROPHS, CBC, ADIFF, GFR #### [address] [address] Eosinophils/100 WBC (Bld) 1.3 % Normal 0.0-6.0 [facility] ([place]) Comment on above: Performed By: #### A GRACIELA, BMP, MDW, TROPHS, CBC, ADIFF, GFR #### [address] [address] Lymphocyte, Absolute 1.5 10 3/mcL Normal 0.9-4.3 [facility] ([place]) Comment on above: Performed By: #### A GRACIELA, BMP, MDW, TROPHS, CBC, ADIFF, GFR #### [address] [address] Lymphocytes/100 WBC (Bld) 18.5 % Low 20.0-40.0 [facility] ([place]) Comment on above: Performed By: #### A GRACIELA, BMP, MDW, TROPHS, CBC, ADIFF, GFR #### [address] [address] Monocyte, Absolute 0.7 10 3/mcL Normal 0.1-1.4 [facility] ([place]) Comment on above: Performed By: #### A GRACIELA, BMP, MDW, TROPHS, CBC, ADIFF, GFR #### [address] [address] Monocytes/100 WBC (Bld) 8.8 % Normal 2.0-13.0 [facility] ([place]) Comment on above: Performed By: #### A GRACIELA, BMP, MDW, TROPHS, CBC, ADIFF, GFR #### [address] [address] Neutrophils/100 WBC (Bld) 71.4 % Normal 50.0-75.0 [facility] ([place]) Comment on above: Performed By: #### A GRACIELA, BMP, MDW, TROPHS, CBC, ADIFF, GFR #### [address] [address] .GFRon 01-16-2023 GFR Non- >60 Normal [facility] ([place]) Comment on above: Result Comment: GFR Population [...] C BC, GFR, ANEU, ADIFF, BMP #### [address] [address] GFR >60 Normal [facility] ([place]) Comment on above: Result Comment: GFR Population [...] C BC, GFR, ANEU, ADIFF, BMP #### [address] [address] .MDWon 01-16-2023 Monocyte Distribution Width 15.71 Normal 0.00-20.00 [facility] ([place]) Comment on above: Result Comment: For ED adult patients suspected of sepsis, MDW<=20.0 does not rule out sepsis or risk of sepsis Performed By: #### A GRACIELA, AMADOU, MDW, TROPHS, CBC, ADIFF, GFR #### [address] [address] .NEUABSon 01-16-2023 Neutrophil, Absolute 5.7 10 3/mcL Normal 2.3-8.1 [facility] ([place]) Comment on above: Performed By: #### A GRACIELA, AMADOU, MDW, TROPHS, CBC, ADIFF, GFR #### [address] [address] BMPon 01-16-2023 BUN/Creatinine Ratio 10.9 ratio Normal 10.0-22.0 [facility] ([place] Comment on above: Performed By: #### C BC, GFR, ANEU, ADIFF, BMP #### [place] [id number] Calcium [Mass/Vol] 8.7 mg/dL Normal 8.7-10.4 [facility] ([place]) Comment on above: Performed By: #### C BC, GFR, ANEU, ADIFF, BMP #### [place] [address] Chloride [Moles/Vol] 104 mmol/L Normal 98-110 [facility] ([place] Comment on above: Performed By: #### C BC, GFR, ANEU, ADIFF, BMP #### [place] [address] CO2 [Moles/Vol] 24 mmol/L Normal 22-32 [facility] ([place]) Comment on above: Performed By: #### C BC, GFR, ANEU, ADIFF, BMP #### [place] [address] Creatinine [Mass/Vol] 0.64 mg/dL Normal 0.50-1.20 [facility] ([place]) Comment on above: Performed By: #### C BC, GFR, ANEU, ADIFF, BMP #### [place] [address] Electrolyte Balance 5.0 mEq/L Normal 4.0-15.0 [facility] ([place]) Comment on above: Performed By: #### C BC, GFR, ANEU, ADIFF, BMP #### [address] [address] Glucose [Mass/Vol] 91 mg/dL Normal 82-115 [facility] [place] Comment on above: Performed By: #### C BC, GFR, ANEU, ADIFF, BMP #### [place] [id number] Potassium [Moles/Vol] 4.8 mmol/L Normal 3.5-5.0 [facility] ([place]) Comment on above: Performed By: #### C BC, GFR, ANEU, ADIFF, BMP #### [place] [address] Sodium [Moles/Vol] 133 mmol/L Low 136-145 [facility] [place] Comment on above: Performed By: #### C BC, GFR, ANEU, ADIFF, BMP #### [place] [id number] Urea nitrogen [Mass/Vol] 7.0 mg/dL Low 8.0-22.0 [facility] ([place]) Comment on above: Performed By: #### C BC, GFR, ANEU, ADIFF, BMP #### [address] [address] CBCon 01-16-2023 Erythrocyte distribution width (RBC) [Ratio] 13.3 % Normal 11.5-15.5 [facility] ([place]) Comment on above: Performed By: #### A GRACIELA, AMADOU, WILLIE, TROPHS, CBC, ADIFF, GFR #### [place] [id number] Hematocrit (Bld) [Volume fraction] 34.4 % Normal 34.0-46.0 [facility] ([place]) Comment on above: Performed By: #### A GRACIELA, AMADOU, MDW, TROPHS, CBC, ADIFF, GFR #### [place] [id number] Hgb 11.5 G/dL Low 12.0-16.0 [facility] ([place]) Comment on above: Performed By: #### A GRACIELA, AMADOU, MDW, TROPHS, CBC, ADIFF, GFR #### [place] [address] MCH (RBC) [Entitic mass] 29.4 pg Normal 27.0-33.0 [facility] ([place] Comment on above: Performed By: #### A GRACIELA, BMP, MDW, TROPHS, CBC, ADIFF, GFR #### [place] [address] MCHC 33.3 G/dL Normal 32.0-36.0 [facility] ([place] Comment on above: Performed By: #### A GRACIELA, AMADOU, MDW, TROPHS, CBC, ADIFF, GFR #### [place] [address] MCV (RBC) [Entitic vol] 88.2 fL Normal 80.0-99.0 [facility] ([place] Comment on above: Performed By: #### A GRACIELA, BMP, MDW, TROPHS, CBC, ADIFF, GFR #### [place] [address] Platelet 418 10 3/mcL Normal 150-450 [facility] ([place]) Comment on above: Performed By: #### A GRACIELA, BMP, MDW, TROPHS, CBC, ADIFF, GFR #### [place] [address] Platelet mean volume (Bld) [Entitic vol] 6.8 fL Normal 6.6-10.5 [facility] ([place]) Comment on above: Performed By: #### A GRACIELA, BMP, MDW, TROPHS, CBC, ADIFF, GFR #### [place] [address] RBC 3.90 10 6/mcL Low 4.10-5.30 [facility] ([place]) Comment on above: Performed By: #### A GRACIELA, BMP, MDW, TROPHS, CBC, ADIFF, GFR #### [place] [address] WBC 7.9 10 3/mcL Normal 4.5-10.8 [facility] ([place]) Comment on above: Performed By: #### A GRACIELA, AMADOU, W, TROPHS, CBC, ADIFF, GFR #### [facility] [address] [place] [address] HEAD OR BRAIN W/O CONTRAS Ton [...] 01/16/2023 4:14:18 PM Ordering Provider: ARYA Smith [facility] ([place]) LABORATORYOrdered By: SYSTEM SYSTEM on 01-16-2023 Basophils (Bld) [#/Vol] 0.0 103/mcL Normal 0.0 - 0.3 10^3/mcL AH Workflow SS Basophils/100 WBC (Bld) 0.0 % Normal 0.0 - 2.5 % Workflow SS Calcium [Mass/Vol] 8.7 mg/dL Normal 8.7 - 10. 4 mg/dL ADM SS Chloride [Moles/Vol] 104 mmol/L Normal 98 - 110 mEq/L ADM SS CO2 [Moles/Vol] 24 mmol/L Normal 22 - 32 mEq/L ADM SS Creatinine [Mass/Vol] 0.64 mg/dL Normal 0.50 - 1.20 mg/dL ADM SS Electrolyte Balance 5.0 mEq/L Normal 4.0 - 15 .0 mEq/L ADM SS Eosinophils (Bld) [#/Vol] 0.1 103/mcL Normal 0.0 - 0.7 10^3/mcL Workflow SS Eosinophils/100 WBC (Bld) 1.3 % Normal 0.0 - 6.0 % Workflow SS Erythrocyte distribution width (RBC) [Ratio] 13.3 % Normal 11.5 - 15.5 % Workflow SS GFR/1.73 sq M.predicted among blacks MDRD (S/P/Bld) [Vol rate/Area] ml/min/1.73sqm Invalid Interpretation Code ADM SS Comment on above: Interpretive Data: GFR Population [...] (S/P/Bld) [Vol rate/Area] ml/min/1.73sqm Invalid Interpretation Code ADM SS Comment on above: Interpretive Data: GFR Population [...] 91 mg/dL Normal 82 - 115 mg/dL AH ADM SS Hematocrit (Bld) [Volume fraction] 34.4 % Normal 34.0 - 46.0 % AH Workflow SS Hemoglobin (Bld) [Mass/Vol] 11.5 G/dL Low 12.0 - 16.0 G/dL AH Workflow SS Lymphocytes (Bld) [#/Vol] 1.5 103/mcL [...] 6.8 fL Normal 6.6 - 10.5 fL Workflow SS Platelets (Bld) [#/Vol] 418 103/mcL Normal 150 - 450 10^3/mcL AH Workflow SS Potassium [Moles/Vol] 4.8 mmol/L Normal 3.5 - 5.0 mEq/L ADM SS RBC (Bld) [#/Vol] 3.90 106/mcL Low 4.10 - 5.3 0 10^6/mcL AH Workflow SS Sodium [Moles/Vol] 133 mmol/L Low 136 - 145 mEq/L ADM SS Troponin I.cardiac DL <= 0.01 ng/mL [Mass/Vol] ng/L Normal 0.00 - 34.00 ng/L ADM SS Urea nitrogen [Mass/Vol] 7.0 mg/dL Low 8.0 - 22.0 mg/dL ADM SS Urea nitrogen/Creatinine [Mass ratio] 10.9 ratio Normal 10.0 - 22.0 ratio ADM SS WBC (Bld) [#/Vol] 7.9 103/mcL Normal 4.5 - 10.8 10^3/mcL Workflow SS TROPHSon 01-16-2023 Troponin I High Sensitivity <2.50 Normal 0.00-34.00 [facility] ([place]) Comment on above: Performed By: #### C BC, GFR, ANEU, ADIFF, BMP #### [address] [address] .Auto Diffon 11-30-2022 Basophil, Absolute 0.0 10 3/mcL Normal 0.0-0.3 [facility] ([place] Comment on above: Performed By: #### C BC, GFR, ANEU, ADIFF, BMP #### [address] [address] Basophils/100 WBC (Bld) 0.1 % Normal 0.0-2.5 [facility] ([place] Comment on above: Performed By: #### C BC, GFR, ANEU, ADIFF, BMP #### [address] [address] Eosinophil, Absolute 0.3 10 3/mcL Normal 0.0-0.7 [facility] ([place]) Comment on above: Performed By: #### C BC, GFR, ANEU, ADIFF, BMP #### [address] [address] Eosinophils/100 WBC (Bld) 4.0 % Normal 0.0-6.0 [facility] ([place] Comment on above: Performed By: #### C BC, GFR, ANEU, ADIFF, BMP #### [address] [address] Lymphocyte, Absolute 1.7 10 3/mcL Normal 0.9-4.3 [facility] ([place]) Comment on above: Performed By: #### C BC, GFR, ANEU, ADIFF, BMP #### [address] [address] Lymphocytes/100 WBC (Bld) 27.7 % Normal 20.0-40.0 [facility] ([place]) Comment on above: Performed By: #### C BC, GFR, ANEU, ADIFF, BMP #### [address] [address] Monocyte, Absolute 0.6 10 3/mcL Normal 0.1-1.4 [facility] ([place] Comment on above: Performed By: #### C BC, GFR, ANEU, ADIFF, BMP #### [address] [address] Monocytes/100 WBC (Bld) 9.6 % Normal 2.0-13.0 [facility] ([place] Comment on above: Performed By: #### C BC, GFR, ANEU, ADIFF, BMP #### [address] [address] Neutrophils/100 WBC (Bld) 58.6 % Normal 50.0-75.0 [facility] ([place]) Comment on above: Performed By: #### C BC, GFR, ANEU, ADIFF, BMP #### [address] [address] .GFRon 11-30-2022 GFR >60 Normal [facility] ([place]) Comment on above: Result Comment: GFR Population [...] C BC, GFR, ANEU, ADIFF, BMP #### [address] [address] GFR Non- >60 Normal [facility] ([place] Comment on above: Result Comment: GFR Population [...] C BC, GFR, ANEU, ADIFF, BMP #### [address] [address] .NEUABSon 11-30-2022 Neutrophil, Absolute 3.7 10 3/mcL Normal 2.3-8.1 [facility] ([place] Comment on above: Performed By: #### C BC, GFR, ANEU, ADIFF, BMP #### [address] [address] BMPon 11-30-2022 BUN/Creatinine Ratio 16.7 ratio Normal 10.0-22.0 [facility] ([place] Comment on above: Performed By: #### C BC, GFR, ANEU, ADIFF, BMP #### [address] [address] Calcium [Mass/Vol] 9.1 mg/dL Normal 8.7-10.4 [facility] ([place] Comment on above: Performed By: #### C BC, GFR, ANEU, ADIFF, BMP #### [address] [address] Chloride [Moles/Vol] 100 mmol/L Normal 98-110 [facility] ([place] Comment on above: Performed By: #### C BC, GFR, ANEU, ADIFF, BMP #### [address] [address] CO2 [Moles/Vol] 27 mmol/L Normal 22-32 [facility] ([place] Comment on above: Performed By: #### C BC, GFR, ANEU, ADIFF, BMP #### [address] [address] Creatinine [Mass/Vol] 0.72 mg/dL Normal 0.50-1.20 [facility] ([place] Comment on above: Performed By: #### C BC, GFR, ANEU, ADIFF, BMP #### [address] [address] Electrolyte Balance 6.0 mEq/L Normal 4.0-15.0 [facility] ([place]) Comment on above: Performed By: #### C BC, GFR, ANEU, ADIFF, BMP #### [address] [address] Glucose [Mass/Vol] 107 mg/dL Normal 82-115 [facility] [place] Comment on above: Performed By: #### C BC, GFR, ANEU, ADIFF, BMP #### [address] [address] Potassium [Moles/Vol] 4.0 mmol/L Normal 3.5-5.0 [facility] ([place] Comment on above: Performed By: #### C BC, GFR, ANEU, ADIFF, BMP #### [address] [address] Sodium [Moles/Vol] 133 mmol/L Low 136-145 [facility] [place] Comment on above: Performed By: #### C BC, GFR, ANEU, ADIFF, BMP #### [place] [address] Urea nitrogen [Mass/Vol] 12.0 mg/dL Normal 8.0-22.0 [facility] ([place] Comment on above: Performed By: #### C BC, GFR, ANEU, ADIFF, BMP #### [place] [id number] CBCon 11-30-2022 Erythrocyte distribution width (RBC) [Ratio] 12.4 % Normal 11.5-15.5 [facility] ([place] Comment on above: Performed By: #### C BC, GFR, ANEU, ADIFF, BMP #### [place] [address] Hematocrit (Bld) [Volume fraction] 33.0 % Low 34.0-46.0 [facility] ([place] Comment on above: Performed By: #### C BC, GFR, ANEU, ADIFF, BMP #### [place] [address] Hgb 11.2 G/dL Low 12.0-16.0 [facility] ([place] Comment on above: Performed By: #### C BC, GFR, ANEU, ADIFF, BMP #### [place] [address] MCH (RBC) [Entitic mass] 29.9 pg Normal 27.0-33.0 [facility] ([place] Comment on above: Performed By: #### C BC, GFR, ANEU, ADIFF, BMP #### [place] [address] MCHC 33.9 G/dL Normal 32.0-36.0 [facility] ([place] Comment on above: Performed By: #### C BC, GFR, ANEU, ADIFF, BMP #### [place] [address] MCV (RBC) [Entitic vol] 88.2 fL Normal 80.0-99.0 [facility] ([place] Comment on above: Performed By: #### C BC, GFR, ANEU, ADIFF, BMP #### [address] [address] Platelet 291 10 3/mcL Normal 150-450 [facility] ([place] Comment on above: Performed By: #### C BC, GFR, ANEU, ADIFF, BMP #### [facility] [address] [place] [address] Platelet mean volume (Bld) [Entitic vol] 7.3 fL Normal 6.6-10.5 [facility] ([place] Comment on above: Performed By: #### C BC, GFR, ANEU, ADIFF, BMP #### [place] [address] [place] [address] RBC 3.74 10 6/mcL Low 4.10-5.30 [facility] ([place] Comment on above: Performed By: #### C BC, GFR, ANEU, ADIFF, BMP #### [address] [address] WBC 6.3 10 3/mcL Normal 4.5-10.8 [facility] ([place] Comment on above: Performed By: #### C BC, GFR, ANEU, ADIFF, BMP #### [address] [address] LABORATORYOrdered By: SYSTEM SYSTEM on 11-30-2022 Basophils (Bld) [#/Vol] 0.0 103/mcL Invalid Interpretation Code 0.0 - 0.3 10^3/mcL AH Workflow SS Basophils/100 WBC (Bld) 0.1 % Invalid Interpretation Code 0.0 - 2.5 % AH Workflow SS Calcium [Mass/Vol] 9.1 mg/dL Invalid Interpretation Code 8.7 - 10.4 mg/dL AH ADM SS Chloride [Moles/Vol] 100 mmol/L Invalid Interpretation Code 98 - 110 mEq/L AH ADM SS CO2 [Moles/Vol] 27 mmol/L Invalid Interpretation Code 22 - 32 mEq/L AH ADM SS Creatinine [Mass/Vol] 0.72 mg/dL Invalid Interpretation Code 0.50 - 1.20 mg/dL ADM SS Electrolyte Balance 6.0 mEq/L Invalid Interpretation Code 4.0 - 15.0 mEq/L AH ADM SS Eosinophils (Bld) [#/Vol] 0.3 103/mcL Invalid Interpretation Code 0.0 - 0.7 10^3/mcL Workflow SS Eosinophils/100 WBC (Bld) 4.0 % Invalid Interpretation Code 0.0 - 6.0 % Workflow SS Erythrocyte distribution width (RBC) [Ratio] 12.4 % Invalid Interpretation Code 11.5 - 15.5 % Workflow SS GFR/1.73 sq M.predicted among blacks [...] Invalid Interpretation Code 34.0 - 46.0 % AH Workflow SS Hemoglobin (Bld) [Mass/Vol] 11.2 G/dL Invalid Interpretation Code 12.0 - 16.0 G/dL AH Workflow SS Lymphocytes (Bld) [#/Vol] 1.7 103/mcL Invalid Interpretation Code 0.9 - 4.3 10^3/mcL AH Workflow SS Lymphocytes/100 WBC (Bld) 27.7 % Invalid Interpretation Code 20.0 - 40.0 % AH Workflow SS MCH (RBC) [Entitic mass] 29.9 pg Invalid Interpretation Code 27.0 - 33.0 pg AH Workflow SS MCHC 33.9 G/dL Invalid Interpretation Code 32.0 - 36.0 G/dL AH Workflow SS MCV (RBC) [Entitic vol] 88.2 fL Invalid Interpretation Code 80.0 - 99.0 fL AH Workflow SS Monocytes (Bld) [#/Vol] 0.6 103/mcL [...] 11/30/2022 12:19:24 PM Ordering Provider: AAKASH MARAVILLA [facility] ([place]) STREP A MOLECULAR (POC)on Procedural Control Valid [facility] Strep A (POCT) Negative Negative [facility] Basophil percentageon 2021 C. trachomatis DNA WILMER+probe Ql (Unsp spec) Negative Negative [facility] Work Phone: HIV 1 and HIV-2 antibody ass ay with HIV-1 p24 antigen detectionon 10-30-2021 HIV 1+2 Ab+HIV1 p24 Ag IA Ql Non-Reactive Nonreactive [facility] Work Phone: Neisseria gonorrhoeae detect ion by PCRon 10-30-2021 N. gonorrhoeae DNA WILMER+probe Ql (Cervical mucus) Negative Negative [facility] Work Phone: No Panel Informationon 10-30 Hepatitis C Antibody Non-Reactive Nonreactive W [facility] Work Phone: Comment on above: Non Reactive: < 0.8 Equivocal: >/= 0.8 to < 1.0 Reactive: >/= 1.0The [facility] recommends that a reactive/equivocal HCV antibody result be followed up by the HCV Nucleic Acid Amplificationtest (944404) Serum Treponema species anti body detectionon 10-30-2021 Treponema sp Ab Ql (S) Non-Reactive [facility] Work Phone: Laboratory - Microbiology an d Antimicrobial susceptibilityon 05-19-2021 SARS-CoV-2 (COVID-19) RNA WILMER+probe Ql (Unsp spec) Not detected [facility] Work Phone: No Panel Informationon 05-19 Influenza Types A,B Rapid (Clinic) Not detected [facility] Work Phone: NURSING PROGon 03-10-2021 NURSING PROG HNO ID: [id number] Author: Rubina Larios RN Service: Nursing Author [...] well. No heme noted when catheter removed. [facility] 02-07-2021 [facility] Telephone (AGGENS3) CONNIE GREENBERG ([id number]) 1960 F Date Time Provider Department 02/07/21 YARIEL GONZALES3 During your visit today, we recorded the [...] by SAVI TRACY on 02/07/21 [facility] ANES POSTPROC EVALon 021 ANES POSTPROC EVAL HNO ID: [id number] Author: Marshal Mari MD Service: Anesthesiology Author Type: Physician Type: Anesthesia Postprocedure Evaluation Filed: 11/29/2020 7:05 AM Note Text: POST ANESTHESIA EVALUATION NOTE : 1960 Procedure Summary Date: 11/23/20 Room / Location: HI OR / HI OR Anesthesia Start: 1401 Anesthesia Stop: 1720 [...] vitals Vitals Value Taken Time BP 137/72 11/23/20 1845 Temp 36.9 ?C (98.4 ?F) 11/23/20 1800 HR SpO2 91 11/23/20 1845 Resp 17 11/23/20 1845 SpO2 94 % 11/23/20 184 Post Anesthesia Patient Status Patient Evaluation: bedside. Pulmonary Status: breathing comfortably on supplemental oxygen Cardiovascular Status: stable. Intraoperative Events: no significant anesthesia events Recommendation: continue current plan of care. Anesthesia Observations No Documentation SIGNATURE: Marshal Mair MD PATIENT NAME: Connie Greenberg DATE: November 29, 2020 TIME: 7:05 AM CSN: [id number] [facility] ALLIED HEALTHon 11-23-2020 ALLIED HEALTH HNO ID: [id number] Author: Naye Codron RT(R) Service: Radiology Author Type: Fire Watcher Type: Allied Health Filed: 11/23/2020 5:56 PM [...] RT Marvin(R) November 23, 2020 5:55 PM [facility] HNO ID: [id number] Author: RT Josh(R) Service: ? Author Type: Technologist Type: Allied [...] IV DATA: Not applicable SIGNED BY: RT Josh(R) November 23, 2020 5:49 PM [facility] ANES PRE-OPon 11-23-2020 ANES PRE-OP HNO ID: [id number] Author: Marshal Mari MD Service: Anesthesiology Author [...] November 23, 2020 TIME: 1:00 PM CSN: [id number] [facility] OPERATIVE NOon 11-23-2020 OPERATIVE NO HNO ID: [id number] Author: Aakash Maravilla DPM Service: Podiatry Author Type: Physician Type: Operative Report Filed: 11/25/2020 1:20 PM Note Text: Date of surgery 11/23/2020 Surgeon: RENITA Principal Cyber Engineer: OR personnel, Jazmin Sahni, PGY2 Preoperative diagnosis: [...] is a well-known patient of mine at [facility] ankle angle inlet with a complaint of having a painful deformity this been bothersome for quite some time she has had pain in her foot for years we did have a significant noticeable deformity she has redness she has severe pain along the medial side of the great toe is severely subluxed she has moderate to severe [id number] contact and midfoot arthritis as noted on [...] the lateral calcaneus down the periosteum the Flipter bone harvest system was then inserted 3 [...] then resected with a sagittal saw. The [employer] medical planer was then inserted cut guide [...] stress v (more content not included)... Normal [facility] XR FOOT 2V AP/LAT LTon 11-23 XR FOOT 2V AP/LAT LT * * *Final Report* * * DATE OF EXAM: Nov 23 2020 5:49PM [facility] 5608 - XR FOOT 2V AP/LAT LT / PROCEDURE REASON: ARTHRODESIS * * * * Physician Interpretation * * * * FLUOROSCOPY AND IMAGING: CLINICAL INDICATION: Arthrodesis of mid tarsal/tarsometatarsa l and hallux valgus correction COMPARISON: Left foot radiographs 11/11/2018. Five small [id number] intraoperative acquisitions of the left foot with [...] Correlate with postoperative radiographs and operative report. Integrated Specialist: GREG Transcribe Date/Time: Nov 24 2020 8:28A Dictated by : ZAKIA TATE MD This examination was interpreted and the report reviewed and electronically signed by: ZAKIA TATE MD on Nov 24 2020 8:33AM EST [id number] N Normal [facility] XR FOOT 3V AP/LAT/OBL LTon 1 XR [...] and hallux valgus correction as described above. Integrated Specialist[facility] Transcribe Date/Time: Nov 24 2020 8:16A Dictated by : ZAKIA TATE MD This examination was interpreted and the report reviewed and electronically signed by: ZAKIA TATE MD on Nov 24 2020 8:33AM EST [id number] N Normal [facility] Hemoglobin A1con 08-23-2019 HbA1c (Bld) [Mass fraction] 5.8 % High 4.3-5.6 [facility] Comment on above: Performed By: #### H BA1C #### [facility] Routine Lab [address] [place] [address] HbA1c (Bld) [Mass fraction] 120 mg/dL Normal [facility] Comment on above: Performed By: #### H BA1C #### [facility] Routine Lab [address] [address] CBC + DIFFon 01-07-2019 Basophils (Bld) [#/Vol] 0.10 x10EE3/UL Normal 0.00 - 0.10 [facility] Comment on above: Performed By: #### 2 66736 #### [facility],[address] [place] [address] Basophils/100 WBC (Bld) 1.3 % Normal 0.0 - 2.0 [facility] Comment on above: Performed By: #### 2 47427 #### [facility],[address] [place] [address] CBC + DIFF Normal [facility] Comment on above: Result Comment: CBC- COMPLETE BLOOD COUNT Performed By: #### 2 14967 #### [facility],[address] [place], [place] [address] Eosinophils (Bld) [#/Vol] 0.10 x10EE3/UL Normal 0.00 - 0.50 [facility] Comment on above: Performed By: #### 2 07004 #### [facility],[address] [place] [address] Eosinophils/100 WBC (Bld) 2.4 % Normal 0.0 - 7.0 [facility] Comment on above: Performed By: #### 2 68556 #### [facility],[address] [place] [address] Erythrocyte distribution width (RBC) [Ratio] 14.0 % Normal 12.0 - 15.6 [facility] Comment on above: Performed By: #### 2 05920 #### [facility],[address] [place] [address] Hematocrit (Bld) [Volume fraction] 33.9 % Low 34.0 - 46.0 [facility] Comment on above: Performed By: #### 2 67810 #### [facility],[address] [place] [address] Hemoglobin (Bld) [Mass/Vol] 11.1 g/dL Low 12.0 - 16.0 [facility] Comment on above: Performed By: #### 2 02473 #### [facility],[address] [place] [address] Lymphocytes (Bld) [#/Vol] 1.70 x10EE3/UL Normal 0.80 - 2.80 [facility] Comment on above: Performed By: #### 2 39278 #### [facility],[address] [place], [place] [address] Lymphocytes/100 WBC (Bld) 37.5 % Normal 20.0 - 45.0 [facility] Comment on above: Performed By: #### 2 63985 #### [facility],[address] [place], [place] [address] MANUAL DIFF N/A Normal [facility] Comment on above: Performed By: #### 2 08168 #### [facility],[address] [place] [address] MCH (RBC) [Entitic mass] 28 pg Normal 27 - 33 [facility] Comment on above: Performed By: #### 2 82679 #### [facility],[address] [place] [address] MCHC (RBC) [Mass/Vol] 33 X10 3 Normal 32 - 36 [facility] Comment on above: Performed By: #### 2 92400 #### [facility],[address] [place] [address] MCV (RBC) [Entitic vol] 85 fL Normal 80 - 99 [facility] Comment on above: Performed By: #### 2 16270 #### [facility],[address] [place] [address] Monocytes (Bld) [#/Vol] 0.40 x10EE3/UL Normal 0.20 - 1.00 [facility] Comment on above: Performed By: #### 2 01620 #### [facility],[address] [place] [address] MONOS % 8.0 % Normal 0.0 - 10.0 [facility] Comment on above: Performed By: #### 2 95029 #### [facility],[address] [place] [address] Morphology [place] (Bld) [Interp] N/A Normal [facility] Comment on above: Performed By: #### 2 91553 #### [address] [address] Neutrophils (Bld) [#/Vol] 2.30 x10EE3/UL Normal 1.50 - 7.10 [facility] Comment on above: Performed By: #### 2 80101 #### [address] [address] Neutrophils/100 WBC (Bld) 50.8 % Normal 46.0 - 76.0 [facility] Comment on above: Performed By: #### 2 37330 #### [facility],[address] [place] [address] Platelet mean volume (Bld) [Entitic vol] 7.9 fL Normal 6.6 - 10.5 [facility] Comment on above: Result Comment: AUTO MATED DIFFERENTIAL Performed By: #### 2 66757 #### [facility],[address] [place] [address] Platelets (Bld) [#/Vol] 349 x10EE3/UL Normal 150 - 450 [facility] Comment on above: Performed By: #### 2 38196 #### [facility],[address] [place] [address] RBC (Bld) [#/Vol] 3.98 x 10EE6/UL Low 4.10 - 5.30 [facility] Comment on above: Performed By: #### 2 51122 #### [facility],[address] [place] [address] WBC (Bld) [#/Vol] 4.6 x 10EE3/UL Normal 4.5 - 10.8 [facility] Comment on above: Performed By: #### 2 27450 #### [facility],[address] [place] [address] CMP with eGFRon 01-07-2019 Age - Reported 58 years Normal [facility] Comment on above: Performed By: #### 2 12196 #### [facility],[address] [place] [address] Albumin [Mass/Vol] 4.1 g/dL Normal 3.4 - 4.8 [facility] Comment on above: Performed By: #### 2 66541 #### [facility],[address] [place] [address] Albumin/Globulin [Mass ratio] 1.7 {ratio} High 0.9 - 1.6 [facility] Comment on above: Performed By: #### 2 77329 #### [facility],[address] [place] [address] ALK PHOS 87 U/L Normal 38 - 126 [facility] Comment on above: Performed By: #### 2 90016 #### [facility],[address] [place] [address]145 ALT/SGPT 18 U/L Normal 8 - 35 [facility] Comment on above: Performed By: #### 2 68111 #### [facility],[address] [place] [address] Anion gap [Moles/Vol] 12 mmol/L Normal 10 - 20 [facility] Comment on above: Performed By: #### 2 70912 #### [facility],[address] [place] [address] AST/SGOT 14 U/L Normal 13 - 39 [facility] Comment on above: Performed By: #### 2 45359 #### [facility],[address] [place] [address] B/C RATIO 18 ratio Normal 0 - 30 [facility] Comment on above: Performed By: #### 2 50754 #### [facility],[address] [place] [address] Bilirubin [Mass/Vol] 0.6 mg/dL Normal 0.0 - 1.5 [facility] Comment on above: Performed By: #### 2 79168 #### [facility],[address] [place] [address] Calcium [Mass/Vol] 9.1 mg/dL Normal 8.6 - 10.2 [facility] Comment on above: Performed By: #### 2 06000 #### [facility],[address] [place] [address] Chloride [Moles/Vol] 101 mmol/L Normal 98 - 107 [facility] Comment on above: Performed By: #### 2 36810 #### [facility],[address] [place] [address] CO2 [Moles/Vol] 27.7 mmol/L Normal 21.0 - 31.0 [facility] Comment on above: Performed By: #### 2 14933 #### [facility],[address] [place] [address] Creatinine [Mass/Vol] 0.8 mg/dL Normal 0.6 - 1.2 [facility] Comment on above: Performed By: #### 2 90019 #### [facility],[address] [place] [address] GFR/1.73 sq M predicted among non-blacks MDRD (S/P/Bld) [Vol rate/Area] Normal [facility] Comment on above: Result Comment: COMP REHENSIVE METABOLIC PANEL Performed By: #### 2 99743 #### [facility],[address] [place] [address] GFR/1.73 sq M predicted among non-blacks MDRD (S/P/Bld) [Vol rate/Area] mL/min/{1.73_m2} Normal 60 - 999 [facility] Comment on above: Result Comment: ACCO RDING TO THE NATIONAL KIDNEY DISEASE EDUCATION PROGRAM(NKDE), A NORMAL eGFR IS A VALUE GREATER THAN OR EQUAL TO 60 ML/MIN/1.73 SQ METERS. CHRONIC KIDNEY DISEASE: <60mL/MIN/1.73 SQ METERS KIDNEY FAILURE: <15mL/MIN/1.73 SQ METERS THIS TEST SHOULD ONLY BE USED FOR PATIENTS 18 YEARS OF AGE AND OLDER. Performed By: #### 2 86727 #### [address] [address] Globulin (S) [Mass/Vol] 2.4 g/dL Normal 1.5 - 3.8 [facility] Comment on above: Performed By: #### 2 63135 #### [address] [address] Glucose [Mass/Vol] 108 mg/dL High 74 - 106 [facility] Comment on above: Performed By: #### 2 65437 #### [facility],[address] [place] [address] Potassium [Moles/Vol] 3.7 mmol/L Normal 3.5 - 5.1 [facility] Comment on above: Performed By: #### 2 14050 #### [facility] [facility],[address] [place] [id number] Protein [Mass/Vol] 6.5 g/dL Normal 6.4 - 8.3 [facility] Comment on above: Performed By: #### [id number] #### [facility],[address] [place] [address] 52792 Sodium [Moles/Vol] 137 mmol/L Normal 136 - 145 [facility] Comment on above: Performed By: #### 2 [id number] #### [facility],[address] [place] [address] 05841 Urea nitrogen [Mass/Vol] 14 mg/dL Normal 6 - 20 [facility] Comment on above: Performed By: #### 2 [id number] #### [facility],[address] [place] [address]01 LIPID PROFILEon 01-07-2019 Cholesterol [Mass/Vol] 161 mg/dL Normal 0 - 200 [facility] Comment on above: Performed By: #### 2 [id number] #### [facility],[address] [place] [address] 74134 Cholesterol in HDL [Mass/Vol] 61 mg/dL High 40 - 60 [facility] Comment on above: Performed By: #### 2 [id number] #### [facility],[address] [place] [address] 80487 Cholesterol in LDL [Mass/Vol] 86 mg/dL Normal 0 - 129 [facility] Comment on above: Performed By: #### 2 [id number] #### [facility],[address] [place] [address] 41987 Cholesterol.total/Ch olesterol in HDL [Mass ratio] 2.6 {ratio} Normal 0.0 - 5.0 [facility] Comment on above: Performed By: #### 2 [id number] #### [facility],[address] [place] [address] 13822 Lipid 1996 panel Normal [facility] Comment on above: Result Comment: LIPI D PROFILE Performed By: #### 2 [id number] #### [facility],[address] [place] [address] 18902 Triglyceride [Mass/Vol] 68 mg/dL Normal 0 - 150 [facility] Comment on above: Performed By: #### 2 [id number] #### [facility],[address] [place] [address] 76856 Vital Signs Date Time Vital Sign Value Performing Clinician Facility 05-19-2024 18:52-0400 Body mass index (BMI) [Ratio] 29.27 kg/m2 Eboni Praisler-Wood OPHTHALMOLOGIST.SYSTEM SUPPORT ADMINISTRATOR Work Phone: [facility] 05-19-2024 18:52-0400 Body temperature 98.01 [degF] Eboni Praisler-Wood OPHTHALMOLOGIST.SYSTEM SUPPORT ADMINISTRATOR Work Phone: [facility] 05-19-2024 18:52-0400 Body weight 72.6 kg Eboni Praisler-Wood OPHTHALMOLOGIST.SYSTEM SUPPORT ADMINISTRATOR Work Phone: [facility] 05-19-2024 18:52-0400 Diastolic blood pressure 80 mm[Hg] Eboni Praisler-Wood OPHTHALMOLOGIST.SYSTEM SUPPORT ADMINISTRATOR Work Phone: [facility] 05-19-2024 18:52-0400 Heart rate 82 /min Eboni Praisler-Wood OPHTHALMOLOGIST.[facility] Work Phone: [facility] 05-19-2024 18:52-0400 Respiratory rate 16 /min Eboni Praisler-Wood OPHTHALMOLOGIST.SYSTEM SUPPORT ADMINISTRATOR Work Phone: [facility] 05-19-2024 18:52-0400 SaO2% (BldA) [Mass fraction] 97 % Eboni Praisler-Wood OPHTHALMOLOGIST.SYSTEM SUPPORT ADMINISTRATOR Work Phone: [facility] 05-19-2024 18:52-0400 Systolic blood pressure 136 mm[Hg] Eboni Praisler-Wood OPHTHALMOLOGIST.[facility] Work Phone: [facility] 03-15-2024 13:44-0500 Body mass index (BMI) [Ratio] 30.81 kg/m2 Eboni Praisler-Wood OPHTHALMOLOGIST.SYSTEM SUPPORT ADMINISTRATOR Work Phone: [facility] 03-15-2024 13:44-0500 Body temperature 100.71 [degF] Eboni Praisler-Wood OPHTHALMOLOGIST.SYSTEM SUPPORT ADMINISTRATOR Work Phone: [facility] 03-15-2024 13:44-0500 Body weight 76.4 kg Eboni Praisler-Wood OPHTHALMOLOGIST.[facility] Work Phone: [facility] 03-15-2024 13:44-0500 Diastolic blood pressure 88 mm[Hg] Eboni Praisler-Wood OPHTHALMOLOGIST.SYSTEM SUPPORT ADMINISTRATOR Work Phone: [facility] 03-15-2024 13:44-0500 Heart rate 100 /min Eboni Praisler-Wood OPHTHALMOLOGIST.SYSTEM SUPPORT ADMINISTRATOR Work Phone: [facility] 03-15-2024 13:44-0500 Respiratory rate 20 /min Eboni Praisler-Wood OPHTHALMOLOGIST.SYSTEM SUPPORT ADMINISTRATOR Work Phone: [facility] 03-15-2024 13:44-0500 SaO2% (BldA) [Mass fraction] 97 % Eboni Praisler-Wood OPHTHALMOLOGIST.SYSTEM SUPPORT ADMINISTRATOR Work Phone: [facility] 03-15-2024 13:44-0500 Systolic blood pressure 160 mm[Hg] Eboni Praisler-Wood OPHTHALMOLOGIST.SYSTEM SUPPORT ADMINISTRATOR Work Phone: [facility] 10-21-2023 15:11-0400 Body mass index (BMI) [Ratio] 32.18 kg/m2 Louise Indorf OPHTHALMOLOGIST.SYSTEM SUPPORT ADMINISTRATOR Work Phone: [facility] 10-21-2023 15:11-0400 Body temperature 97.39 [degF] Louise Indorf OPHTHALMOLOGIST.SYSTEM SUPPORT ADMINISTRATOR Work Phone: [facility] 10-21-2023 15:11-0400 Body weight 79.8 kg Louise Indorf OPHTHALMOLOGIST.SYSTEM SUPPORT ADMINISTRATOR Work Phone: [facility] 10-21-2023 15:11-0400 Diastolic blood pressure 70 mm[Hg] Louise Indorf OPHTHALMOLOGIST.SYSTEM SUPPORT ADMINISTRATOR Work Phone: [facility] 10-21-2023 15:11-0400 Heart rate 76 /min Louise Indorf OPHTHALMOLOGIST.SYSTEM SUPPORT ADMINISTRATOR Work Phone: [facility] 10-21-2023 15:11-0400 Respiratory rate 20 /min Louise Indorf OPHTHALMOLOGIST.SYSTEM SUPPORT ADMINISTRATOR Work Phone: [facility] 10-21-2023 15:11-0400 SaO2% (BldA) [Mass fraction] 97 % Louise Indorf OPHTHALMOLOGIST.SYSTEM SUPPORT ADMINISTRATOR Work Phone: [facility] 10-21-2023 15:11-0400 Systolic blood pressure 118 mm[Hg] Louise Ashwini NOBLE Work Phone: [facility] 04-29-2023 13:55-0400 Body temperature 98.6 [degF] Patricio Rich MD Work Phone: [facility] 04-29-2023 13:55-0400 Body weight 76 kg Patricio Rich MD Work Phone: [facility] 04-29-2023 13:55-0400 Diastolic blood pressure 85 mm[Hg] Patricio Rich MD Work Phone: [facility] 04-29-2023 13:55-0400 Heart rate 79 /min Patricio Rich MD Work Phone: [facility] 04-29-2023 13:55-0400 Respiratory rate 18 /min Patricio Rich MD Work Phone: [facility] 04-29-2023 13:55-0400 SaO2% (BldA) [Mass fraction] 98 % Patricio Rich MD Work Phone: [facility] 04-29-2023 13:55-0400 Systolic blood pressure 132 mm[Hg] Patricio Rich MD Work Phone: [facility] 04-27-2023 11:20-0400 Body temperature 98.6 [degF] Krislyn Aberegg PA Work Phone: [facility] 04-27-2023 11:20-0400 Body weight 75 kg Krislyn Aberegg PA Work Phone: [facility] 04-27-2023 11:20-0400 Diastolic blood pressure 64 mm[Hg] Krislyn Aberegg PA Work Phone: [facility] 04-27-2023 11:20-0400 Heart rate 108 /min Krislyn Aberegg PA Work Phone: [facility] 04-27-2023 11:20-0400 Respiratory rate 18 /min Krislyn Aberegg PA Work Phone: [facility] 04-27-2023 11:20-0400 SaO2% (BldA) [Mass fraction] 98 % Krislyn Aberegg PA Work Phone: [facility] 04-27-2023 11:20-0400 Systolic blood pressure 122 mm[Hg] Krislyn Aberegg PA Work Phone: [facility] 01-16-2023 21:02-0500 Diastolic Blood Pressure Non-Invasive 69 mm[Hg] YARIEL FLOWERS MD [address] [place] [address] 01-16-2023 21:02-0500 Heart rate 75 /min YARIEL FLOWERS MD [address] [place] [address] 01-16-2023 21:02-0500 Respiratory rate 18 /min YARIEL FLOWERS MD [address] [place] [address] 01-16-2023 21:02-0500 Systolic Blood Pressure Non-Invasive 113 mm[Hg] YARIEL FLOWERS MD [address] [place] [address] 01-16-2023 16:17-0500 Diastolic Blood Pressure Non-Invasive 83 mm[Hg] YARIEL FLOWERS MD [address] 01-16-2023 16:17-0500 Heart rate 68 /min YARIEL FLOWERS MD [address] [place] [address] 01-16-2023 16:17-0500 Respiratory rate 18 /min YARIEL FLOWERS MD [address] [place] [address] 01-16-2023 16:17-0500 Systolic Blood Pressure Non-Invasive 136 mm[Hg] YARIEL FLOWERS MD [address] [place] [address] 01-16-2023 13:47-0500 Body temperature 98.24 [degF] YARIEL FLOWERS MD [address] [place] [address] 01-16-2023 13:47-0500 Body weight 71.6 kg YARIEL FLOWERS MD [address] [place] [address] 12-06-2023 13:47-0500 Diastolic Blood Pressure Non-Invasive 73 mm[Hg] YARIEL FLOWERS MD [facility] 01-16-2023 13:47-0500 Heart rate 84 /min YARIEL FLOWERS MD [facility] 01-16-2023 13:47-0500 Respiratory rate 18 /min YARIEL FLOWERS MD [facility] 01-16-2023 13:47-0500 Systolic Blood Pressure Non-Invasive 127 mm[Hg] YARIEL FLOWERS MD [facility] 11-30-2022 15:18-0400 Diastolic Blood Pressure Non-Invasive [address] AAKASH MARAVILLA DPM [facility] 11-30-2022 15:18-0400 Systolic Blood Pressure Non-Invasive [address] AAKASH MARAVILLA DPM [facility] 11-30-2022 14:04-0400 Body temperature 97.52 [degF] DR AAKSAH MARAVILLA DPM [facility] 11-30-2022 14:04-0400 Diastolic Blood Pressure Non-Invasive [address] AAKASH MARAVILLA DPM [facility] 11-30-2022 14:04-0400 Heart rate 78 /min DR AAKASH MARAVILLA DPM [facility] 11-30-2022 14:04-0400 Respiratory rate 16 /min DR AAKASH MARAVILLA DPM [facility] 11-30-2022 14:04-0400 Systolic Blood Pressure Non-Invasive [address] AAKASH MARAVILLA DPM [facility] 11-30-2022 13:15-0400 Body temperature 97.52 [degF] DR AAKASH MARAVILLA DPM [facility] 11-30-2022 13:15-0400 Diastolic Blood Pressure Non-Invasive [address] AAKASH MARAVILLA DPM [facility] 11-30-2022 13:15-0400 Heart rate 82 /min DR AAKASH MARAVILLA DPM [facility] 11-30-2022 13:15-0400 Mean blood pressure 108 mm[Hg] DR AAKASH MARAVILLA DPM [facility] 11-30-2022 13:15-0400 Respiratory rate 16 /min DR AAKASH MARAVILLA DPM [address] [place] [address] 11-30-2022 13:15-0400 Systolic Blood Pressure Non-Invasive [address] AAKASH MARAVILLA DPM [address] [place] [address] 11-30-2022 13:00-0400 Heart rate 84 /min DR AAKASH MARAVILLA DPM [address] [place] [address] 11-30-2022 12:55-0400 Heart rate 81 /min DR AAKASH MARAVILLA DPM [facility] 11-30-2022 12:45-0400 Mean blood pressure 100 mm[Hg] DR AKAASH MARAVILLA DPM [facility] 11-30-2022 12:30-0400 Body temperature 96.98 [degF] DR AAKASH MARAVILLA DPM [facility] 11-30-2022 12:30-0400 Mean blood pressure 101 mm[Hg] DR AAKASH MARAVILLA DPM [facility] 11-30-2022 12:20-0400 Respiratory Rate - Anes 0 br/min DR AAKASH MARAVILLA DPM [facility] 11-30-2022 12:15-0400 Respiratory Rate - Anes 15 br/min DR AAKASH MARAVILLA DPM [facility] 11-30-2022 12:10-0400 Respiratory Rate - Anes 16 br/min DR AAKASH MARAVILLA DPM [facility] 11-30-2022 11:05-0400 Body temperature 96.8 [degF] DR AAKASH MARAVILLA DPM [facility] 11-30-2022 10:45-0400 Body temperature 96.8 [degF] DR AAKASH MARAVILLA DPM [facility] 11-30-2022 06:51-0400 Body height 157.[address] AAKASH MARAVILLA DPM [facility] 11-30-2022 06:51-0400 Body weight 71.[address] AAKASH MARAVILLA DPM [facility] 11-30-2022 06:51-0400 Heart rate 67 /min DR AAKASH MARAVILLA DPM [facility] 10-31-2022 19:23-0400 Body temperature 98.4 [degF] Sheela Champion OPHTHALMOLOGIST.SYSTEM SUPPORT ADMINISTRATOR Work Phone: [facility] 10-31-2022 19:23-0400 Body weight 68.04 kg Sheela Champion OPHTHALMOLOGIST.SYSTEM SUPPORT ADMINISTRATOR Work Phone: [facility] 10-31-2022 19:23-0400 Diastolic blood pressure 82 mm[Hg] Sheela Champion OPHTHALMOLOGIST.SYSTEM SUPPORT ADMINISTRATOR Work Phone: [facility] 10-31-2022 19:23-0400 Heart rate 79 /min Sheela Champion OPHTHALMOLOGIST.SYSTEM SUPPORT ADMINISTRATOR Work Phone: [facility] 10-31-2022 19:23-0400 Respiratory rate 18 /min Sheela Champion OPHTHALMOLOGIST.SYSTEM SUPPORT ADMINISTRATOR Work Phone: [facility] 10-31-2022 19:23-0400 SaO2% (BldA) [Mass fraction] 97 % Sheela Champion OPHTHALMOLOGIST.SYSTEM SUPPORT ADMINISTRATOR Work Phone: [facility] 10-31-2022 19:23-0400 Systolic blood pressure 136 mm[Hg] Sheela Champion SYSTEM SUPPORT ADMINISTRATOR Work Phone: [facility] 04-06-2022 17:29-0500 Body temperature 98.1 [degF] Krislyn Aberegg PA Work Phone: [facility] 04-06-2022 17:29-0500 Body weight 64.32 kg Krislyn Aberegg PA Work Phone: [facility] 04-06-2022 17:29-0500 Diastolic blood pressure 84 mm[Hg] Krislyn Aberegg PA Work Phone: [facility] 04-06-2022 17:29-0500 Heart rate 73 /min Krislyn Aberegg PA Work Phone: [facility] 04-06-2022 17:29-0500 Respiratory rate 18 /min Krislyn Aberegg PA Work Phone: [facility] 04-06-2022 17:29-0500 SaO2% (BldA) [Mass fraction] 99 % Krislyn Aberegg PA Work Phone: [facility] 04-06-2022 17:29-0500 Systolic blood pressure 128 mm[Hg] Krislyn Aberegg PA Work Phone: [facility] 11-30-2021 19:15-0400 Body temperature 97.7 [degF] Kaylen Athy PA-C Work Phone: [facility] 11-30-2021 19:15-0400 Body weight 70.94 kg Kaylen Athy PA-C Work Phone: [facility] 11-30-2021 19:15-0400 Diastolic blood pressure 78 mm[Hg] Kaylen Athy PA-C Work Phone: [facility] 11-30-2021 19:15-0400 Heart rate 83 /min Kaylen Athy PA-C Work Phone: [facility] 11-30-2021 19:15-0400 Respiratory rate 18 /min Kaylen Newfavian PA-C Work Phone: [facility] 11-30-2021 19:15-0400 SaO2% (BldA) [Mass fraction] 97 % Kaylen Goode PA-C Work Phone: [facility] 11-30-2021 19:15-0400 Systolic blood pressure 122 mm[Hg] Kaylen Goode PA-C Work Phone: [facility] 10-30-2021 10:08-0400 Body height 157.[address] Lee Garcia Work Phone: [facility] Work Phone: 10-30-2021 10:08-0400 Body mass index (BMI) [Ratio] 27.6 kg/m2 Dr. Lee Garcia Work Phone: [facility] Work Phone: 10-30-2021 10:08-0400 Body temperature 96.9 [degF] Dr. Lee Garcia Work Phone: [facility] Work Phone: 10-30-2021 10:08-0400 Body weight 68.[address] Lee Garcia Work Phone: [facility] Work Phone: 10-30-2021 10:08-0400 Diastolic blood pressure 80 mm[Hg] Dr. Lee Garcia Work Phone: [facility] Work Phone: 10-30-2021 10:08-0400 Heart rate 78 /min Dr. Lee Garcia Work Phone: [facility] Work Phone: 10-30-2021 10:08-0400 Respiratory rate 16 /min Dr. Lee Garcia Work Phone: [facility] Work Phone: 10-30-2021 10:08-0400 SaO2% (BldA) [Mass fraction] 99 % Dr. Lee Garcia Work Phone: [facility] Work Phone: 10-30-2021 10:08-0400 Systolic blood pressure 110 mm[Hg] Dr. Lee Garcia Work Phone: [facility] Work Phone: 08-03-2021 20:19-0400 Body temperature 97.9 [degF] Dr. Lee Garcia Work Phone: [facility] Work Phone: 08-03-2021 20:19-0400 Diastolic blood pressure 81 mm[Hg] Dr. Lee Garcia Work Phone: [facility] Work Phone: 08-03-2021 20:19-0400 Heart rate 78 /min Dr. Lee Garcia Work Phone: [facility] Work Phone: 08-03-2021 20:19-0400 Respiratory rate 18 /min Dr. Lee Garcia Work Phone: [facility] Work Phone: 08-03-2021 20:19-0400 SaO2% (BldA) [Mass fraction] 98 % Dr. Lee Garcia Work Phone: [facility] Work Phone: 08-03-2021 20:19-0400 Systolic blood pressure 134 mm[Hg] Dr. Lee Garica Work Phone: [facility] Work Phone: 08-03-2021 20:17-0400 Body height 157.[address] Lee Garcia Work Phone: [facility] Work Phone: 08-03-2021 20:17-0400 Body mass index (BMI) [Ratio] 27.8 kg/m2 Dr. Lee Garcia Work Phone: [facility] Work Phone: 08-03-2021 20:17-0400 Body weight 68.[address] Lee Garcia Work Phone: [facility] Work Phone: 05-19-2021 17:03-0400 Body temperature 98.5 [degF] Dr. Lee Garcia Work Phone: [facility] Work Phone: 05-19-2021 17:03-0400 Diastolic blood pressure 68 mm[Hg] Dr. Lee Garcia Work Phone: [facility] Work Phone: 05-19-2021 17:03-0400 Heart rate 83 /min Dr. Lee Garcia Work Phone: [facility] Work Phone: 05-19-2021 17:03-0400 Respiratory rate 15 /min Dr. Lee Garcia Work Phone: [facility] Work Phone: 05-19-2021 17:03-0400 SaO2% (BldA) [Mass fraction] 98 % Dr. Lee Garcia Work Phone: [facility] Work Phone: 05-19-2021 17:03-0400 Systolic blood pressure 110 mm[Hg] Dr. Lee Garcia Work Phone: [facility] Work Phone: 05-12-2021 09:19-0400 Body mass index (BMI) [Ratio] 29.5 kg/m2 Dr. Lee Garcia Work Phone: [facility] Work Phone: 05-12-2021 09:19-0400 Body temperature 98.2 [degF] Dr. Lee Garcia Work Phone: [facility] Work Phone: 05-12-2021 09:19-0400 Body weight 74.[address] Lee Garcia Work Phone: [facility] Work Phone: 05-12-2021 09:19-0400 Diastolic blood pressure 84 mm[Hg] Dr. Lee Garcia Work Phone: [facility] Work Phone: 05-12-2021 09:19-0400 Heart rate 67 /min Dr. Lee Garcia Work Phone: [facility] Work Phone: 05-12-2021 09:19-0400 Respiratory rate 14 /min Dr. Lee Garcia Work Phone: [facility] Work Phone: 05-12-2021 09:19-0400 SaO2% (BldA) [Mass fraction] 98 % Dr. Lee Garcia Work Phone: [facility] Work Phone: 05-12-2021 09:19-0400 Systolic blood pressure 130 mm[Hg] Dr. Lee Garcia Work Phone: [facility] Work Phone: 05-08-2021 10:10-0400 Body mass index (BMI) [Ratio] 29.7 kg/m2 Dr. Lee Garcia Work Phone: [facility] Work Phone: 05-08-2021 10:10-0400 Body weight 74.[address] Lee Garcia Work Phone: [facility] Work Phone: Encounters Encounter Date Encounter Type Care Provider Facility Start: 10-07-2024 ambulatory [facility] ty:[facility] Start: 10-05-2024 End: 10-05-2024 ambulatory [facility] Facility:[facility] Start: 08-07-2024 End: 08-07-2024 ambulatory [facility] Facility:[facility] Start: 08-06-2024 End: 08-06-2024 ambulatory [facility] Facility:[facility] Start: 08-05-2024 End: 08-05-2024 ambulatory [facility] Facility:[facility] Start: 07-31-2024 End: 07-31-2024 ambulatory [facility] Facility:[facility] Start: 07-17-2024 End: 07-17-2024 ambulatory [facility] Facility:[facility] Start: 07-14-2024 End: 07-14-2024 ambulatory [facility] Facility:[facility] Start: 07-10-2024 Encounter for genera l adult medical examination without abnormal findings [facility] Start: 07-10-2024 End: 07-10-2024 ambulatory [facility] Facility:[facility] Start: 07-10-2024 End: 07-10-2024 ambulatory [facility] Facility:[facility] Start: 07-08-2024 ambulatory [facility] ty:[facility] Start: 06-04-2024 End: 06-04-2024 Emergency department patient visit Adore Gonzalez Facility:[facility] Start: 06-03-2024 End: 06-03-2024 ambulatory [facility] Facility:[facility] Start: 05-19-2024 End: 05-19-2024 Subsequent hospital visit by physician Vivek [facility] Phone: Radiology Comment on above: Subacute cough [R05. 2] Start: 05-19-2024 End: 05-19-[address] [facility] Facility:[facility] Start: 05-19-2024 End: 05-19-2024 Patient encounter procedure Eboni White OPHTHALMOLOGIST.SYSTEM SUPPORT ADMINISTRATOR Work Phone: [facility] Comment on above: Subacute cough (Prim jacobo Dx); Sinobronchitis Start: 04-10-2024 End: 04-10-2024 ambulatory [facility] Facility[facility] Start: 04-09-2024 End: 04-10-2024 ambulatory [facility] Facility:[facility] Start: 03-15-2024 End: 03-15-[address] [facility] Facility:[facility] Start: 03-15-2024 End: 03-15-2024 Patient encounter procedure Eboni White OPHTHALMOLOGIST.SYSTEM SUPPORT ADMINISTRATOR Work Phone: [facility] Comment on above: Fever in other disea ses (Primary Dx); Bacterial sinusitis; Influenza A Start: 02-11-2024 End: 02-11-2024 ambulatory [facility] Facility:[facility] Start: 02-10-2024 End: 02-10-2024 ambulatory [facility] Facility:[facility] Start: 02-10-2024 End: 02-10-2024 ambulatory [facility] Facility:[facility] Start: 02-07-2024 End: 02-07-2024 ambulatory [facility] Facility:[facility] Start: 01-27-2024 End: 01-27-2024 ambulatory [facility] Facility:[facility] Start: 12-09-2023 End: 12-09-2023 ambulatory [facility] Facility:[facility] Start: 11-26-2023 End: 11-26-2023 ambulatory [facility] Facility:[facility] Start: 11-18-2023 ambulatory [facility] Fac[facility] ty:[facility] Start: 11-18-2023 End: 11-18-2023 ambulatory [facility] Facility:[facility] Start: 11-04-2023 End: 11-04-2023 ambulatory [facility] Facility:[facility] Start: 11-04-2023 End: 11-04-2023 ambulatory [facility] Facility:[facility] Start: 10-21-2023 End: 10-21-2023 ambulatory LEE GARCIA Facility:[facility] Start: 10-21-2023 End: 10-21-2023 Office outpatient visit 15 minutes Louise Maradiaga APRN.SYSTEM SUPPORT ADMINISTRATOR Work Phone: [facility] Comment on above: Bacterial sinusitis (Primary Dx) Start: 04-29-2023 End: 04-29-2023 Patient encounter procedure Patricio Rich MD Work Phone: [facility] Comment on above: Acute conjunctivitis of both eyes, unspecified acute conjunctivitis type (Primary Dx); Subconjunctival hemorrhage, bilateral; Petechiae; Ecchymosis; Wheezing Start: 04-28-2023 Telephone encounter Eva CHAO Work Phone: [facility] Comment on above: Results Start: 04-27-2023 End: 04-27-2023 Patient encounter procedure Eva CHAO Work Phone: [facility] Comment on above: URI, acute (Primary Dx); Acute conjunctivitis of both eyes, unspecified acute conjunctivitis type Start: 03-26-2023 Refill Ginette Snow Work Phone: [facility] Start: 01-16-2023 End: 01-17-2023 Emergency department patient visit ARYA TAO PA-C Facility:[facility] Start: 01-16-2023 Telephone encounter Gala Montana APRN.SYSTEM SUPPORT ADMINISTRATOR Work Phone: [facility] Comment on above: Results Start: 01-16-2023 End: 01-16-2023 Emergency department patient visit YARIEL FLOWERS MD [facility] Start: 11-30-2022 End: 11-30-2022 ambulatory RAZ WOOD MD Facility:[facility] Start: 11-30-2022 End: 11-30-[address] AAKASH CRUZ [facility] Start: 11-12-[address] AAKASH MARAVILLA DPM Fac ility:[facility] Start: 10-31-2022 End: 10-31-2022 Patient encounter procedure Sheela Champion AIDE Work Phone: [facility] Comment on above: Upper respiratory tr act infection, unspecified type (Primary Dx); Acute cough Start: 04-06-2022 End: 04-06-2022 Patient encounter procedure Eva CHAO Work Phone: [facility] Comment on above: Thrush (Primary Dx) Start: 11-30-2021 End: 11-30-2021 Patient encounter procedure Kaylen Goode PA-C Work Phone: [facility] Comment on above: Sinobronchitis (Prim jacobo Dx) Start: 10-30-2021 End: 10-30-[address] Lee Garcia Work Phone: [facility] Work Phone: Start: 10-30-2021 End: 10-30-[address] Lee Garcia Work Phone: [facility] Start: 08-03-2021 End: 08-03-2021 Emergency department patient visit Dr. Lee Garcia Work Phone: [facility] Start: 05-19-2021 End: 05-19-[address] Lee Garcia Work Phone: [facility] Start: 05-12-2021 End: 05-12-[address] Lee Garcia Work Phone: [facility] Start: 05-08-2021 End: 05-08-2021 Patient encounter procedure Dr. Lee Garcia Work Phone: [facility] Start: 01-07-2019 Encounter for genera l adult medical examination without abnormal findings DEVIN RAMIREZ [facility] Start: 01-07-2019 End: 01-07-2019 Patient encounter procedure DEVIN RAMIREZ [facility] Procedures Date Procedure Procedure Detail Performing Clinician Start: 05-19-2024 Radiologic exam ches t 2 views Eboni White APRN.SYSTEM SUPPORT ADMINISTRATOR Work Phone: Start: 03-15-2024 INFLUENZA A&B MOLECU LAR (POC) Eboni White APRN.SYSTEM SUPPORT ADMINISTRATOR Work Phone: Start: 04-27-2023 COVID & INFLUENZA A/ B & RSV NAAT, ROUTINE Eva uDenas PA Work Phone: Start: 10-31-2022 STREP A MOLECULAR (POC) Gala Montana APRN.SYSTEM SUPPORT ADMINISTRATOR Work Phone: Start: 02-11-[address] AAKASH MARAVILLA DPM Start: 02-11-[address] ALESSANDRO MARAVILLA DPM Start: 02-11-[address] AAKASH MARAVILLA DPM Hysterectomy DR AAKASH MARAVILLA DPM Viral antigen assay Dr. Compa Garcia Work Phone: Plan of Treatment Date Care Activity Detail Author Start: 2037 RSV Vaccine (1 - 1-d ose 75+ series) RSV Vaccine (1 - 1-dose 75+ series) [facility] Start: 11-11-2024 Urine microalbumin profile DTaP,Tdap,Td Vaccine (2 - Td or Tdap) [facility] Start: 10-13-2023 Covid-19 Vaccine ( season) Covid-19 Vaccine ( season) [facility] Start: 10-13-2023 Covid-19 Vaccine ( season) Covid-19 Vaccine ( season) [facility] Start: 10-13-2023 Influenza vaccination Influenza Vacc ine (#1) [facility] Start: 02-11-2023 Depression Assessment Depression Ass essment [facility] Start: 10-31-2022 End: 11-14-2022 COVID & INFLUENZA A/B & RSV NAAT, ROUTINE [facility] Work Phone: Comment on above: Expected: 10/31/2022 , Expires: 11/14/2022 Start: 10-12-2022 Covid-19 Vaccine () Covid-19 Vaccine ( season) [facility] Start: 10-12-2022 Influenza vaccination Influenza Vacc ine (#1) [facility] Start: 2022 RSV Vaccine (1 - 1-d ose 60+ series) RSV Vaccine (1 - 1-dose 60+ series) [facility] Start: 02-11-2022 [facility] Start: 11-30-2021 End: 12-14-2021 SARS-CoV-2 (COVID-19) RNA [Presence] in Respiratory specimen by WILMER with probe detection 2019 CORONAVIRUS Microbiology Routine Sinobronchitis Expected: 11/30/2021, Expires: 12/14/2021 [facility] Work Phone: Comment on above: Expected: 11/30/2021 , Expires: 12/14/2021 Start: 10-12-2021 Influenza vaccination INFLUENZA (#1) [facility] Start: 08-03-2021 [facility] Work Phone: Start: 03-19-2021 COVID-19 VACCINE (4 - Booster for Pfizer series) COVID-19 VACCINE (4 - Booster for Pfizer series) [facility] Start: 03-19-2021 Covid-19 Vaccine (4 - Pfizer series) Covid-19 Vaccine (4 - Pfizer series) [facility] Start: 02-11-2021 DEPRESSION ASSESSMENT DEPRESSION ASS ESSMENT [facility] Start: 06-12-2015 Screening for malign ant neoplasm of breast Mammogram Screening [facility] Start: 2012 SHINGRIX VACCINE (1 of 2) SHINGRIX VACCINE (1 of 2) [facility] Start: 07-23-2007 COLOGUARD (FIT-DNA) COLOGUARD (FIT-D NA) [facility] Start: 07-23-2007 Colonoscopy COLONOSCOPY [facility] Start: 07-23-2007 COLORECTAL CANCER SCREENING COLORECTAL CANCER SCREENING [facility] Start: 07-23-[address] COLONOGRAPHY [facility] Start: 07-23-2007 DIABETES SCREEN DIABETES SCREEN [facility] Start: 07-23-2007 Diabetes Screening Diabetes Screenin g [facility] Start: 07-23-2007 FECAL OCCULT BLOOD FECAL OCCULT BLOO D [facility] Start: 07-23-2007 Lipid 1996 panel - Serum or Plasma Lipid Screening [facility] Start: 07-23-2007 Lipid panel Lipid Screening [facility] Start: 07-23-2007 LIPID SCREEN LIPID SCREEN [facility] Start: 07-23-2007 Screening for malign ant neoplasm of colon [facility] Start: 07-23-[address] [facility] Start: 2002 Mammography [facility] Start: 2002 Screening for malign ant neoplasm of breast Mammogram Screening [facility] Start: 1992 HPV TESTING HPV TESTING [facility] Start: 1992 Screening for malign ant neoplasm of cervix HPV Testing [facility] Start: 07-23-1983 PAP TESTING PAP TESTING [facility] Start: 07-23-1983 Screening for malign ant neoplasm of cervix [facility] Start: 1981 Urine microalbumin profile [facility] Start: 1980 Anxiety Screening Anxiety Screening [facility] Start: 1980 Depression Screening Depression Scre ening [facility] Start: 1980 HEPATITIS C SCREENING HEPATITIS C [facility] Start: 1980 Hepatitis C screening Hepatitis C [facility] Start: 1980 HIV SCREENING HIV SCREENING [facility] Start: 1980 HIV screening HIV Screening [facility] MG Breast - bilatera l Screening [facility] Work Phone: Patient Education ED URI, Viral, No Abx (Adult) [facility] Work Phone: Patient referral [facility] Work Phone: ROUTINE FLU A/B + RSV ROUTINE FL U A/B + RSV Lab Routine Upper respiratory tract infection, unspecified type Acute cough 10/31/2022 8:01 PM EDT [facility] Work Phone: SARS-CoV-2 (COVID-19 ) RNA [Presence] in Respiratory specimen by WILMER with probe detection COVID NAAT, UPPER RESPIRATORY, ROUTINE Microbiology Routine Upper respiratory tract infection, unspecified type Acute cough 10/31/2022 8:01 PM EDT [facility] Work Phone: Immunizations Immunization Date Immunization Notes Care Provider [facility] 01-25-2022 influenza virus vaccine, unspecified formulation Eva CHAO Work Phone: [facility] 01-22-2021 Covid (Pfizer) Dr. Lee Garcia Work Phone: [facility] Work Phone: 05-26-2020 Covid (Pfizer) Dr. Lee Garcia Work Phone: [facility] Work Phone: 04-30-2020 Covid (Pfizer) Dr. Lee Garcia Work Phone: [facility] Work Phone: 01-07-2019 influenza virus vaccine, unspecified formulation Sheela Champion APRN.CNP Work Phone: [facility] 12-27-2016 influenza, seasonal, injectable Dr. Lee Garcia Work Phone: [facility] Work Phone: Payers Date Payer Category Payer Unknown [id number] 2024 Private Health Insurance LIMITED BENEFITS PLAN [id number] 2024 Unknown [id number] 2023 Self-pay [id number] 2023 Medicaid [id number] 2023 Medicaid [id number]. [id number] 2022 Unknown [id number] 2018 Unknown [id number]. 1.13.159.2. [id number] 2015 Unknown [id number] 1962 Unknown [id number] 2.16.840.1.275976.3.579.2. 627 1962 Unknown [id number] 2.16.840.1.445375.3.579.2. 627 1962 Unknown [id number] 2.16.840.1.943990.3.579.2. 627 1962 Unknown [id number] 2.16.840.1.972021.3.579.2. 651 Unknown [id number] 2.16.840.1.218591.3.579.2. 462 Unknown [id number] 2.16.840.1.210572.3.579.2. 462 Unknown [id number] 2.16.840.1.026759.3.579.2. 462 Unknown [id number] 2.16.840.1.370246.3.579.2. 462 Unknown [id number] 2.16.840.1.804152.3.579.2. 462 Unknown [id number] 2.16.840.1.421256.3.579.2. 462 Unknown [id number] 2.16.840.1.487587.3.579.2. 462 Unknown [id number] 2.16.840.1.458933.3.579.2. 462 Unknown [id number] 2.16.840.1.186512.3.579.2. 462 Unknown [id number] 2.16.840.1.152704.3.579.2. 462 Unknown [id number] 2.16.840.1.387165.3.579.2. 462 Unknown [id number] 2.16.840.1.237576.3.579.2. 462 Unknown [id number] 2.16.840.1.181817.3.579.2. 462 Unknown [id number] 2.16.840.1.908677.3.579.2. 462 Unknown [id number] 2.16.840.1.309573.3.579.2. 462 Unknown [id number] 2.16840.1.498273.3.579.2. 462 Unknown [id number] 2.16.840.1.633813.3.579.2. 462 Unknown [id number] 2.16.840.1.881005.3.579.2. 462 Unknown [id number] 2.16.840.1.467961.3.579.2. 462 Unknown [id number] 2.16840.1.573688.3.579.2. 462 Unknown [id number] 2.16.840.1.661007.3.579.2. 462 Unknown [id number] 2.16.840.1.891344.3.579.2. 462 Unknown [id number] 2.16.840.1.315343.3.579.2. 462 Unknown [id number] 2.16.840.1.395316.3.579.2. 462 Unknown [id number] 2.16.840.1.167465.3.579.2. 462 Unknown [id number] 2.16.840.1.938687.3.579.2. 462 Unknown [id number] 2.16.840.1.046129.3.579.2. 462 Unknown [id number] 2.16.840.1.097309.3.579.2. 462 Social History Date Type Detail Facility Start: 08-03-2021 End: 10-30-2021 Tobacco smoking status NHIS Unknown if ever smoked [facility] Work Phone: Start: 12-27-2016 Occasional [facility] Work Phone: Start: 12-27-2016 None [facility] Work Phone: Start: 10-18-2019 Spouse/ Signif icant Other [facility] Work Phone: Start: 1960 Sex Assigned At Female A [facility] Start: 11-30-2021 End: 11-30-2022 Tobacco smoking status NHIS Never smoked tobacco [facility] Start: 11-30-2021 Tobacco use and exposure Smokeless tobacco non-user [facility] Start: 11-30-2021 End: 03-15-2024 Alcohol intake Current drinker of alcohol (finding) [facility] Start: 11-21-2020 Alcohol Comment 3 times weekly [facility] Start: 1960 Sex Assigned At Not on file [facility] Start: 01-18-2020 End: 10-31-2022 History of Social function [facility] Start: 01-18-2020 End: 10-31-2022 Tobacco use panel [facility] National Score (1-100), lower number is lower risk Not on file [facility] Medical Equipment Procedure Code Equipment Code [...] Assessment Result Facility 11-30-2022 Functional Status Independent [facility] 11-30-2022 Functional Status ice on [facility] 11-30-2022 Functional Status [facility] 11-30-2022 Functional Status Maintained [facility] Mental Status Date Assessment Result Facility 11-30-2022 Mental Status Orientation Oriented x 4 [facility] 11-30-2022 Mental Status [facility] Clinical Notes 11-23-2020 to 05-19-2024 Patient Theresa Amado Tech - 05/19/2024 7:10 PM Eboni Rosado APRN.SYSTEM SUPPORT ADMINISTRATOR - 05/19/2024 7:04 PM EDTPatient Eboni Llanos APRN.SYSTEM SUPPORT ADMINISTRATOR - 03/15/2024 1:59 PM EST Note Date & Type Note Facility 05-19-2024 Instructions Eboni White APRN.SYSTEM SUPPORT ADMINISTRATOR - 05/19/2024 7:30 PM EDT {ASSESSMENT/PLAN: 1. Subacute cough - ICD9: 786.2, ICD10: R05.2 (primary diagnosis) - XR CHEST 2V FRONTAL/LAT IMPRESSION: No acute radiographic abnormality. Integrated Specialist: GREG Transcribe Date/Time: May 19 2024 7:18P Dictated by : WHIT RON MD 2. Sinobronchitis - ICD9: 473.9, 490, ICD10: J32.9, J40 - Will begin treatment with as per antibiotic as written, see orders - Supportive care with plenty of fluids, rest, and analgesia prn. - AMOXICILLIN 875 MG-POTASSIUM CLAVULANATE 125 MG TABLET - PREDNISONE 20 MG TABLET Eboni White APRN.SYSTEM SUPPORT ADMINISTRATOR documented in this encounter [facility] 05-19-2024 History of Present illness Narrative Radiology [...] PATIENT PRESENTS WITH AN IMPLANTABLE OR ATTACHED LOGGING SPECIALIST: No RADIOLOGY DEPARTMENT: General X-ray: Exam(s) Completed: Chest X-Ray PERIPHERAL IV DATA: Not applicable SIGNED BY: Warren Bran May 19, 2024 7:08 PM documented in this encounter [facility] 05-19-2024 Note HNO ID: [id number] Author: THERESA CORADO Tech Service: ? Author [...] PATIENT PRESENTS WITH AN IMPLANTABLE OR ATTACHED LOGGING SPECIALIST: No RADIOLOGY DEPARTMENT: General X-ray: Exam(s) Completed: Chest X-Ray PERIPHERAL IV DATA: Not applicable SIGNED BY: Warren Bran May 19, 2024 7:08 PM [facility] 05-19-2024 Note HNO ID: [id number] Author: EBONI WHITE APRN.SYSTEM SUPPORT ADMINISTRATOR Service: ? Author Type: Nurse Practitioner Type: [...] - Cholecalciferol, V (more content not included)... [facility] 05-19-2024 History of Present illness Narrative JOSE [...] 2V FRONTAL/LAT IMPRESSION: No acute radiographic abnormality. Integrated Specialist: GREG Transcribe Date/Time: May 19 2024 7:18P Dictated by : WHIT RON MD 2. Sinobronchitis - ICD9: 473.9, 490, ICD10: J32.9, J40 - Will begin treatment with as per antibiotic as written, see orders - Supportive care with plenty of fluids, rest, and analgesia prn. - AMOXICILLIN 875 MG-POTASSIUM CLAVULANATE 125 MG TABLET - PREDNISONE 20 MG TABLET Eboni White APRN.SYSTEM SUPPORT ADMINISTRATOR History and Record Review Systemic symptoms present included: fever Management I performed an independent interpretation of the following:imaging Imaging: My interpretation is see plan Disposition The patient was discharged. OTC Medications were advised: Continue mucinex Procedures documented in this encounter [facility] 03-15-2024 Instructions Eboni White APRN.SYSTEM SUPPORT ADMINISTRATOR - 03/15/2024 2:24 PM EST ASSESSMENT/PLAN: 1. [...] Discussed expected course of illness Eboni White APRN.[facility] CARE PATIENT INFO INFLUENZA INTRODUCTION Influenza (commonly called the flu) is a highly contagious illness that can occur in children or adults of any age. It occurs more often in the winter months because people spend more time in close contact with one another. The flu is spread easily from ghajve-ku-fptofn by coughing, sneezing, or touching surfaces. Every [...] age of 65, people who live in equipment operator intermodal yard care facilities (nursing homes), and those with [...] do not become dehydrated. One way to office helper clerical if you are drinking enough is to [...] of antibiotic resistance. documented in this encounter [facility] 03-15-2024 Note HNO ID: [id number] Author: EBONI WHITE APRN.SYSTEM SUPPORT ADMINISTRATOR Service: ? Author Type: Nurse Practitioner Type: [...] not taking: R (more content not included)... [facility] 03-15-2024 History of Present illness Narrative Subjective [...] Bipolar disorder (HCC) CVA (cerebral vascular accident) ([facility]) Diarrhea, functional GERD (gastroesophageal reflux disease) Hiatal [...] Discussed expected course of illness Eboni White APRN.SYSTEM SUPPORT ADMINISTRATOR documented in this encounter [facility] 10-21-2023 Note HNO ID: [id number] Author: LOUISE MARADIAGA APRN.MARIA ISABEL Service: ? [...] (HCC) No date: CVA (cerebral vascular accident) ([facility]) No date: Diarrhea, functional No date: GERD [...] COQ10, UBIQUINOL, ORAL (more content not included)... [facility] 10-21-2023 History of Present illness Narrative Patient [...] (HCC) No date: CVA (cerebral vascular accident) ([facility]) No date: Diarrhea, functional No date: GERD [...] and frontal sinus tenderness present. Mouth/Throat: Lips: Lula. Mouth: Oropharynx is clear and moist. Pharynx: [...] Maradiaga APRN.MARIA ISABEL documented in this encounter [facility] 10-21-2023 Instructions Louise Maradiaga APRN.CNP - 10/21/2023 [...] should be avoided. documented in this encounter [facility] 04-29-2023 History of Present illness Narrative Patient [...] evaluation at the ER. Report sent to [facility] by ER Passport. Patricio Rich MD documented in this encounter [facility] 04-28-2023 Miscellaneous Notes Patient notified.Nazanin Orellana LPN Negative for COVID flu RSV documented in this encounter [facility] 04-27-2023 History of Present illness Narrative This note was created using Taboolariter. Ivan Greenberg is a 62 year old [...] shortness of breath. She has been taking xdkb-qix-gyvbwpd sinus medication. Patient states today she got [...] Anxiety and depression Arthritis Asthma Bipolar disorder ([facility]) CVA (cerebral vascular accident) ([facility]) Diarrhea, functional GERD (gastroesophageal reflux disease) Hiatal [...] evaluation. ZHANNA Holly documented in this encounter [facility] 03-28-2023 Miscellaneous Notes Called pt. Verified pt by name and . Gave pt cabinet assembler note. Pt agreeable to plan. Pt will make an appointment to discuss. Pt transferred to appt line. Shannon Crook RN March 28, 2023 10:08 AM Per chart she has history of memory impairment Would not recommend long-term high dose oxybuytnin use in this situation Recommend that she schedule a follow up visit with one of use to discuss other options Thanks Bettina Stubbs APRN.CNP Refill(s) request: Requested Prescriptions Pending Prescriptions Disp [...] overdue for appointment. Routing refill request to [facility] for partial refill. Will advise patient when calling her back to schedule follow up visit. Monik Boo RN March 26, 2023 2:48 PM Patient called requesting refill on Oxybutynin. documented in this encounter [facility] 01-16-2023 Note ORIGINAL EXAMINATION: CT OF [...] Date: 01/16/2023 4:14:18 PM Ordering Provider: ARYA [facility] 01-16-2023 Miscellaneous Notes Patient notified of results and provider's instructions. Patient verbalizes understanding. Tere Rios RN Left message for patient to call back and ask for a triage nurse for results. Blaire Hudson Patient was positive for COVID. Patient should quarantine for 5 days then mask for another 5 days. Vdwb-wpt-yscfaux medications as appropriate for treatment. Patient was negative for flu and RSV. documented in this encounter [facility] 11-30-2022 Hospital Discharge instructions Patient Education 11/30/2022 14:03:24 1- [facility] General Discharge Guidelines (10/26/2022) (CUSTOM) [...] Care 07/19/2022 16:00:11 With:jamal Address: When: Unknown [facility] 11-30-2022 Summary of episode note Discharge Instructions Thank you for allowing [facility] to assist you with your healthcare needs. [...] Post-op pain Duration: 7 Days Pickup at [facility] Unchanged albuterol (Ventolin MDI HFA) 2 [...] a day Unchanged herbal/ nutritional product (Evening Helmetta Oil 1000 mg oral capsule) See instructions [...] a day Unchanged omega-3 polyunsaturated fatty acids (Marietta-3 1050 mg oral capsule) by mouth Three [...] Three (3) times a day Pharmacy Information [facility]: [address], [place] [id number] [phone] Please take this list to your next doctor s visit. Bring all medications you take, including over the counter medications, herbals and other supplements with you to your doctor s visit. Patients and families are reminded to discard old lists and to update any records with all medication providers or retail pharmacies. Education Materials [facility] SAME DAY SURGERY DISCHARGE INSTRUCTIONS PLEASE [...] to receive it can visit one of [facility] vaccine clinics. There are many vaccine clinic locations within the [facility]. For locations and available times, please visit [email or web address].[place]ai [place].[email or web address] It is important to note that some COVID mobile vaccine clinics are held outdoors and may be canceled in rainy or stormy conditions. To learn more about pediatric vaccinations (ages 5-11), we invite you to visit the [facility] webpage. https://www.[email or web address].org/pag es/5761-Oaxci-Ggudnapheev-Frequent xd-Bfjro-Gdxkdlaht.html To learn more about the COVID-19 vaccine, we invite you to visit the CDC website for a list of frequently asked questions.https://www.cdc.gov/eldon navirus/2019-ncov/vaccines/faq.htm buster [employer] Patient Portal Access Instructions: Stay connected with your healthcare team and access your personal medical information anytime with the [employer] Patient Portal. Please follow the directions below to create your [facility] [employer] account: 1.Access the email account you provided upon registration to the hospital/physician office.2.Look for an invitation email from [facility].3.Open the email and access the invitation link: [facility].4.Fill in the required medina to create your account. To access your account, visit [email or web address]. Click the blue button labeled Access Patient [...] you will allow to register on the [facility] [employer] Patient Portal for access to your information. You can also access the [facility] Patient Portal on the [facility] [employer] marianne. Simply click on Patient Portal and then log into your account. If you would like to receive a full copy of your medical records, please contact the [facility] Medical Records Department by calling [phone], Saturday through Saturday between 8 a.m. and [...] Call your local pharmacy or go to http://bit.ly/4L7On3u to find one close to you.3.Make use of household items: Use cat litter or old coffee grounds to dispose medications if other options are not available. Mix your drugs with these household products, seal them in an airtight container and throw it into the garbage. Call [facility]: [phone] to be sure your drugs can be [...] aware that I should contact my doctor. Patient/[employer] Team Member Signature: Date/Time: Relationship to Patient: ___ Witness Name/Signature: Date/Time: [facility] 11-30-2022 Anesthesiology Consult note Patient: CONNIE GREENBERG [...] ALEJANDRA DEMPSEY MD on 11/30/2022 01:45 PM [facility] 11-30-2022 Note ORIGINAL EXAMINATION: SPOT FLUOROSCOPIC IMAGES [...] Sign Date: 11/30/2022 12:19:24 PM Ordering Provider: [facility] 11-30-2022 Anesthesiology Progress note Patient: CONNIE [...] 1 cap(s), Oral, BID, 0 Refill(s) Evening Helmetta Oil 1000 mg oral capsule: See Instructions, [...] 0 Refill(s) OLANZapine: Oral, qDay, 0 Refill(s) Marietta-3 1050 mg oral capsule: Oral, TID, 0 [...] Problem list: Medical Anxiety / SNOMED CT 67462951 / Confirmed Bipolar disorder / SNOMED CT 55853380 / Confirmed Chronic back pain / SNOMED CT 701876157 / Confirmed Depression / SNOMED CT 51055816 / Confirmed Hyperlipidemia / SNOMED CT 841439785 / Confirmed Hypertension / SNOMED CT 6142259080 / Confirmed Sciatic nerve pain / SNOMED CT 38718551 / Confirmed, Active Problems (7) Anxiety Bipolar disorder Chronic back pain Depression Hyperlipidemia Hypertension Sciatic nerve pain Histories Past Medical History: Active Hypertension (1541754434) Hyperlipidemia (903567982) Anxiety (53101805) Bipolar disorder (65650205) Depression (82486910) Chronic back pain (423994916) Sciatic nerve pain (20441954) Family History: Patient was adopted. Asthma Daughter Son Mental illness Son Procedure history: Endometrial ablation (237790033) in 1997 at 37 Years. section (93265149) in 1990 at 30 Years. Tonsillectomy (945879940) in 1967 at 7 Years. Hysterectomy (176291093). Social History Social & Psychosocial Habits Alcohol [...] None Living situation: Home with assistance Primary Fire Prevention Officer: Aashish Safe place to go: Yes Lives In 1st floor bathroom, 1st floor laundry, 2nd floor bedroom, Split level home Current Home Treatments None Nutrition/Health 11/30/2022 Type of diet: Regular Appetite Excellent Eating Difficulties None . Physical Examination Vital Signs(last 24 hrs) Last Charted Resp Rate 16 br/min (NOV 30 06:51) JVY291 mmHg (NOV 30 06:51) DBP81 mmHg (NOV 30 06:51) Measurements from flowsheet : Measurements 11/30/2022 6:51 EDT Height 157.5 cm Height in inches 62 inch(es) Admission Weight 71.8 kg Weight Lbs 158 lb Weight Method Actual [place] Body Weight 50.12 kg Admission Body Mass [...] Ca 9.1(NOV 30) . Assessment and Plan [employer] (ASA) physical status classification: [...] RAZ WOOD MD on 11/30/2022 08:04 AM [facility] 10-31-2022 History of Present illness Narrative This note was created using NoteWriter. Subjective [...] Assessment and Plan documented in this encounter [facility] 04-06-2022 History of Present illness Narrative This note was created using [employer]. Subjective Connie Greenberg is a 61 year [...] Bipolar disorder (HCC) CVA (cerebral vascular accident) ([facility]) Diarrhea, functional GERD (gastroesophageal reflux disease) Hiatal [...] evaluation. ZHANNA Holly documented in this encounter [facility] 11-30-2021 History of Present illness Narrative This note was created using [employer]. 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 [employer] Type: Anesthesia Procedure Notes Filed: 11/23/2020 2:28 PM Note Text: ANESTHESIOLOGY PROCEDURE NOTE Airway General Information Procedure Start Time/Medication Administration: 11/23/2020 2:07 PM Patient location during procedure: OR Patient identity confirmed: arm band Staffing Anesthesiologist: Marshal Mari MD STUCCO APPLICATOR: Teresa Catalan APRN.STUCCO APPLICATOR Performed by: NADIA Indications and Patient Condition Preoxygenated: yes Patient position: sniffing Manual In-Line Stabilization: No Difficult Mask: No Indications for airway management: anesthesia anesthesia circuit Method: asleep Cricoid Pressure: No Final Airway Details Final airway type: supraglottic airway Number of attempts at approach: 1 Final Supraglottic Airway: i-gel Size 4 Seal Adequate: yes Failed airway: no Airway not difficult SIGNATURE: Teresa Catalan APRN.STUCCO APPLICATOR PATIENT NAME: Connie Greenberg DATE: November 23, 2020 TIME: 2:27 PM CSN: [id number] [facility] Evaluation + Plan note No data available for this section [facility] Evaluation note Diagnosis Onset Date Encounter for routine gyneco logical examination noneactive Bipolar depression chronic Hyperlipidemia chronic Hypertension chronic Insomnia chronic Encounter for screening for COVID-19 [facility] Work Phone: Evaluation note* Diagnosis Onset Date Resolution Status Screening for STD (sexually transmitted disease) acute Overweight (BMI 25.0-29.9) c hronic [facility] Work Phone: Evaluation note* Diagnosis Sinobronchitis- Primary Unspecified sinusitis (chronic) documented in this encounter [facility] note* Diagnosis Thrush- Primary Candidiasis of mouth documented in this encounter [facility] note* Diagnosis Upper respiratory tract infection, unspecified type- Primary Acute cough documented in this encounter [facility] note* Diagnosis OAB (overactive bladder) [N32.81]- Primary Hypertonicity of bladder documented in this encounter [facility] note* Diagnosis URI, acute- Primary Acute upper respiratory infections of unspecified site Acute conjunctivitis of both eyes, unspecified acute conjunctivitis type documented in this encounter [facility] note* Diagnosis Acute conjunctivitis of both eyes, unspecified acute conjunctivitis type- Primary Subconjunctival hemorrhage, bilateral Petechiae Spontaneous ecchymoses Ecchymosis Other specified circulatory system disorders Wheezing documented in this encounter [facility] note* Diagnosis Bacterial sinusitis- Primary Unspecified sinusitis (chronic) documented in this encounter [facility] note* Diagnosis Fever in other diseases- Primary Bacterial sinusitis Unspecified sinusitis (chronic) Influenza A Influenza with other respiratory manifestations documented in this encounter [facility] note* Diagnosis Subacute cough- Primary Cough Sinobronchitis Unspecified sinusitis (chronic) Subacute cough Cough documented in this encounter [facility] note* Diagnosis Subacute cough Cough documented in this encounter [facility] Discharge instructions No data available for this section [facility] Progress note No data available for this section [facility] Summary Purpose Family History No Family History Records Found Relationship Condition Age at Onset Recorded Date/T isaiah Not Specified Past medical history not known due to adoption Unknown Advance Directives No Advanced Directives Records Found Advance Directive Response Recorded Date/ Time Living Will No August 03, 2021 9:04pm Power of Large Animal Veterinarian No August 03 9:04pm Chief Complaint and Reason for Visit Chief Complaint 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 M FU PCR COVID TEST GENERAL [...] section and content) DATE CREATED AUTHOR 01/15/2019 [facility] DATE CREATED AUTHOR AUTHOR'S ORGANIZ ATION 03/05/2020 [facility] DATE CREATED AUTHOR AUTHOR'S ORGANIZ ATION 03/11/2021 [facility] DATE CREATED AUTHOR AUTHOR'S ORGANIZ ATION 01/30/2023 [facility] ([place]) DATE CREATED AUTHOR AUTHOR'S ORGANIZ ATION 05/21/2024 [facility] DATE CREATED AUTHOR AUTHOR'S ORGANIZ ATION 10/06/2024 [facility] Goals (unrecognized section and content) Goals may [...] or prosecute any alcohol or drug abuse patient.[facility] the event this information is protected by the Federal Confidentiality of Alcohol and Drug Abuse Patient Records regulations: The Federal rules restrict any use of the information to criminally investigate or prosecute any alcohol or drug abuse patient.[facility] the event this information is protected by the Federal Confidentiality of Alcohol and Drug Abuse Patient Records regulations: The Federal rules restrict any use of the information to criminally investigate or prosecute any alcohol or drug abuse patient.[facility] the event this information is protected by the Federal Confidentiality of Alcohol and Drug Abuse Patient Records regulations: The Federal rules restrict any use of the information to criminally investigate or prosecute any alcohol or drug abuse patient.[facility] the event this information is protected by the Federal Confidentiality of Alcohol and Drug Abuse Patient Records regulations: The Federal rules restrict any use of the information to criminally investigate or prosecute any alcohol or drug abuse patient.[facility] the event this information is protected by the Federal Confidentiality of Alcohol and Drug Abuse Patient Records regulations: The Federal rules restrict any use of the information to criminally investigate or prosecute any alcohol or drug abuse patient.[facility] the event this information is protected by the Federal Confidentiality of Alcohol and Drug Abuse Patient Records regulations: The Federal rules restrict any use of the information to criminally investigate or prosecute any alcohol or drug abuse patient.[facility] the event this information is protected by the Federal Confidentiality of Alcohol and Drug Abuse Patient Records regulations: The Federal rules restrict any use of the information to criminally investigate or prosecute any alcohol or drug abuse patient.[facility] the event this information is protected by the Federal Confidentiality of Alcohol and Drug Abuse Patient Records regulations: The Federal rules restrict any use of the information to criminally investigate or prosecute any alcohol or drug abuse patient.[facility] the event this information is protected by the Federal Confidentiality of Alcohol and Drug Abuse Patient Records regulations: The Federal rules restrict any use of the information to criminally investigate or prosecute any alcohol or drug abuse patient.[facility] Hospital[facility] the event this information is protected by the Federal Confidentiality of Alcohol and Drug Abuse Patient Records regulations: The Federal rules restrict any use of the information to criminally investigate or prosecute any alcohol or drug abuse patient.[facility] the event this information is protected by the Federal Confidentiality of Alcohol and Drug Abuse Patient Records regulations: The Federal rules restrict any use of the information to criminally investigate or prosecute any alcohol or drug abuse patient.[facility] Reason for Visit (unrecogniz ed section and content) Reason Comments Cough Cough, bilateral ear pain, diarrhea and CASPER x 4 days Specialty Diagnoses / Procedures Referred By Contac t Referred To Contact [facility] / [facility] Diagnoses ear pain, ear pain, cough losing voice, x4 days Procedures NEW SAME DAY [facility] [address] [place] [address] Referral ID Status Reason Start Date Expiration Date V isits Requested Visits Authorized [id number] Outside PCP 11/30/2021 02/28/2022 1 1 Reason Comments Mouth Sores Pt reported painful mouth sores x1 week, completed ATB. Specialty Diagnoses / Procedures Referred By Noreen t Referred To Contact [facility] / [facility] Diagnoses mouth hurts, possible thrust, x1 week. just finished antibiotic and steroid Procedures NEW SAME DAY [facility] [address] [place] [address] Referral ID Status Reason Start Date Expiration Date V isits Requested Visits Authorized [id number] Outside PCP 04/06/2022 07/05/2022 1 1 Reason [...] Care Teams (unrecognized sec tion and content) Piecer Up Relationship Specialty Start Date End Date Lee Garcia MD [address] [place] [address] PCP - General Internal Medicine 11/23/20 Piecer Up Relationship Specialty Start Date End Date Lee Garcia MD [address] [place], [place] [id number] PCP - General Internal Medicine 11/23/20 Piecer Up Relationship Specialty Start Date End Date Lee Garcia MD [address] [place], [place] [id number] PCP - General Internal Medicine 11/23/20 Piecer Up Relationship Specialty Start Date End Date Lee Garcia MD [address] [place] [address] PCP - General Internal Medicine 11/23/20 Piecer Up Relationship Specialty Start Date End Date Lee Garcia MD [address] [place] [address] PCP - General Internal Medicine 11/23/20 Piecer Up Relationship Specialty Start Date End Date Lee Garcia MD [address] [place], [place] [id number] PCP - General Internal Medicine 11/23/20 Piecer Up Relationship Specialty Start Date End Date Lee Garcia MD [address] [place] [address] PCP - General Internal Medicine 11/23/20 FOR [...] BE BASED ON THE PRIMARY CLINICAL RECORDS. [facility] [employer] [facility]. provides no warranty or guarantee of the accuracy or completeness of information in this document.
== END 2024-10-07 15:27 | disposition home or self-care (01) ==
LOC: EN 12:35 → AC 12:36
PROVIDERS: PCP Internal Medicine; Referring Provider Internal Medicine; Visit Provider Internal Medicine Gastroenterology
PROC: 0DJD8ZZ Inspection of Lower Intestinal Tract, Via Natural or Artificial Opening Endoscopic (ICD-10-PCS; CPT 45378; principal; 2024-10-07 13:10)
DX: Z12.11 Encounter for screening for malignant neoplasm of colon (principal); K57.30 Diverticulosis of large intestine without perforation or abscess without bleeding; K22.4 Dyskinesia of esophagus; K44.9 Diaphragmatic hernia without obstruction or gangrene; K59.09 Other constipation; K21.9 Gastro-esophageal reflux disease without esophagitis; R68.81 Early satiety; I10 Essential (primary) hypertension; Z79.82 Long term (current) use of aspirin; Z79.899 Other long term (current) drug therapy
CPT/HCPCS: 45380; 43239; 88305; 88312; J2405

== ENCOUNTER → 2024-10-09 | Outpatient (CLI) | payer OTHER, MEDICAID, SELFPAY ==
[2024-10-09 13:55] LABS: Anion Gap 13 (5-15); BUN 7 mg/dL (4-19); BUN/Creat Ratio 9.2 RATIO (10-20); Calcium,Total 9.3 mg/dL (7.6-11.0); Carbon Dioxide 20.9 mmol/L (21.0-32.0); Chloride 103 mmol/L (98-108); Glucose 114 mg/dL (70-99); Potassium 3.6 mmol/L (3.3-5.1)
== END | disposition home or self-care (01) ==
LOC: LAB 12:43
PROVIDERS: PCP Internal Medicine; Referring Provider Physician Assistant; Visit Provider Physician Assistant
DX: G43.711 Chronic migraine without aura, intractable, with status migrainosus (principal)
CPT/HCPCS: 36415; 80048

== ENCOUNTER → 2024-10-16 | Outpatient (CLI) | payer OTHER, MEDICAID, SELFPAY ==
[2024-10-16 14:12] LABS: Vitamin B12 1341 pg/mL (180-914)
[2024-10-19 15:08] LABS: ANTINUCLEAR ANTIBODIES DIRECT Negative (Negative)
[2024-10-21 22:07] LABS: Copper, Serum or Plasma 91 ug/dL (80-158)
== END | disposition home or self-care (01) ==
LOC: BIMLAB 10:59
PROVIDERS: PCP Internal Medicine; Visit Provider Physician Assistant
DX: G62.9 Polyneuropathy, unspecified (principal)
CPT/HCPCS: 36415; 82525; 82607; 84443; 86038; 86225